=== PATIENT | female | born 1955 | race Two or more races ===

== ENCOUNTER 2020-08-29 14:43 | Outpatient (REF) | payer OTHER, SELFPAY | END 2020-08-29 14:44 | disposition home or self-care (01) | LOC: HO.LAB 14:43 | PROVIDERS: PCP Internal Medicine; Visit Provider Internal Medicine | DX: Z20.828 Contact with and (suspected) exposure to other viral communicable diseases (principal) | CPT/HCPCS: 87635 ==

== ENCOUNTER → 2020-09-11 09:21 | Outpatient (BNVA) | payer OTHER, SELFPAY | PROVIDERS: PCP Internal Medicine; Visit Provider Nurse Practitioner | DX: K31.84 Gastroparesis (principal); K21.00 Gastro-esophageal reflux disease with esophagitis, without bleeding; K22.70 Barrett's esophagus without dysplasia; R10.33 Periumbilical pain; Z79.899 Other long term (current) drug therapy | CPT/HCPCS: 99212 ==

== ENCOUNTER → 2020-10-22 09:54 | Outpatient (BNVA) | payer OTHER, SELFPAY | PROVIDERS: PCP Internal Medicine; Referring Provider Internal Medicine; Visit Provider Nurse Practitioner | DX: Z76.89 Persons encountering health services in other specified circumstances (principal) ==

== ENCOUNTER → 2020-10-29 13:45 | Outpatient (BNVA) | payer OTHER, SELFPAY | PROVIDERS: PCP Internal Medicine; Visit Provider Internal Medicine | DX: I25.10 Atherosclerotic heart disease of native coronary artery without angina pectoris (principal); E11.8 Type 2 diabetes mellitus with unspecified complications; I10 Essential (primary) hypertension; E78.5 Hyperlipidemia, unspecified | CPT/HCPCS: 99212 ==

== ENCOUNTER 2020-11-29 11:08 | Outpatient (REF) | payer MEDICARE, MEDICAID, SELFPAY ==
--- NOTE | 2020-11-29 | MM_ITS ---
EXAMINATION: MM SCREENING DIGITAL BREAST TOMOSYNTHESIS, BILATERAL CLINICAL INFORMATION: Screening. Asymptomatic. The lifetime risk of breast cancer based on the Tyrer-Cuzick Model is 5%. COMPARISON: Mammography: 11/25/2019, 11/19/2018, 05/11/2018 TECHNIQUE: Digital breast tomosynthesis is performed in both the craniocaudal and mediolateral oblique views along with computer-aided detection (CAD). Synthesized 2D images are generated from the tomosynthesis. FINDINGS: There are scattered areas of fibroglandular density (ACR BI-RADS breast composition Category b). There are no significant masses, abnormal calcifications, or other abnormalities. Parenchymal pattern is similar to prior studies. MM/MM tomosynthesis screening BI IMPRESSION: No significant changes from prior exams. ASSESSMENT: BI-RADS 1: Negative RECOMMENDATION: Routine annual mammography screening. This patient's information was entered into a reminder system with a target due date for their next mammogram.
== END 2020-11-29 11:09 | disposition home or self-care (01) ==
LOC: HO.MAMMO 11:08
PROVIDERS: PCP Internal Medicine; Visit Provider Internal Medicine
DX: Z12.31 Encounter for screening mammogram for malignant neoplasm of breast (principal)
CPT/HCPCS: 77063; 77067

== ENCOUNTER → 2020-12-10 10:35 | Outpatient (BNVA) | payer SELFPAY | PROVIDERS: PCP Internal Medicine; Visit Provider Nurse Practitioner ==

== ENCOUNTER 2020-12-20 16:53 | Outpatient (REF) | payer MEDICARE, SELFPAY | END 2020-12-20 16:54 | disposition home or self-care (01) | LOC: HO.LAB 16:53 | PROVIDERS: Visit Provider Internal Medicine | DX: Z20.822 Contact with and (suspected) exposure to COVID-19 (principal) | CPT/HCPCS: 36415; C9803; U0003; U0005 ==

== ENCOUNTER → 2021-02-01 10:55 | Outpatient (BNVA) | payer MEDICARE, SELFPAY | PROVIDERS: PCP Internal Medicine; Visit Provider Hospitalist | DX: J45.40 Moderate persistent asthma, uncomplicated (principal); J30.9 Allergic rhinitis, unspecified; K21.00 Gastro-esophageal reflux disease with esophagitis, without bleeding; Z79.899 Other long term (current) drug therapy | CPT/HCPCS: Q3014 ==

== ENCOUNTER → 2021-03-11 13:05 | Outpatient (BNVA) | payer MEDICARE, SELFPAY | PROVIDERS: PCP Internal Medicine; Visit Provider Nurse Practitioner | DX: Z13.89 Encounter for screening for other disorder (principal) | CPT/HCPCS: Q3014 ==

== ENCOUNTER → 2021-04-30 12:43 | Outpatient (BNVA) | payer MEDICARE, SELFPAY | PROVIDERS: PCP Internal Medicine; Referring Provider Internal Medicine; Visit Provider Internal Medicine | DX: I25.10 Atherosclerotic heart disease of native coronary artery without angina pectoris (principal); E11.8 Type 2 diabetes mellitus with unspecified complications; E78.5 Hyperlipidemia, unspecified; I10 Essential (primary) hypertension | CPT/HCPCS: 93005; 99212 ==

== ENCOUNTER → 2021-05-02 07:53 | Outpatient (REF) | payer MEDICARE, SELFPAY ==
--- NOTE | ~2021-05-02 | NM_ITS ---
Myocardial perfusion study Indication: Angina pectoris to evaluate for myocardial ischemia Technique: The patient was brought in for a Lexiscan perfusion study on 05/02/2021. Patient performed low-level exercise and was injected 0.4 mg of Lexiscan intravenously. Within a minute of injection, 35 mCi of sestamibi was given intravenously. Images were obtained using the SPECT gamma camera interlaced with the gating device. Images were obtained in supine position. Resting perfusion study was performed on 05/03/2021. Patient was administered 35 mCi of sestamibi intravenously at rest. Images were then obtained in supine position. Images obtained with and without CT attenuation. Total DLP 135 mGy-cm. Images were processed with the software and compared side to side in short axis, horizontal long axis and vertical long axis views. Findings: The stress perfusion study showed nonattenuated images show small area of mildly reduced uptake in the apex of the LV myocardium. Attenuation corrected images also show mildly reduced uptake in the apex of the LV myocardium.. The gated study shows normal LV systolic function with calculated LVEF of 73%. LV cavity is normal in size. The gated study shows normal systolic wall thickening and contraction of segments. Resting study shows normal uptake of radiotracer in all segments of LV myocardium on attenuation as well as nonattenuated images.. Gating at rest reveals normal systolic wall motion with visually estimated ejection fraction at greater than 65 %. The findings are consistent with small area of mild intensity reversible defect of the apex suggestive of ischemia.. NM/NM monica perf SPECT rest & str Impression: 1. Myocardial perfusion imaging study shows mild intensity apical ischemia 2. Gated LVEF is greater than 65% 3. Transient ischemic dilatation not present EKG is nondiagnostic for ischemia
--- NOTE | 2021-05-02 07:55 | CA_ITS ---
Acquisition Time: 2021-05-02 08:16:04 Total Exercise Time: 00:02:00 Test Indications: CP, PREOP Medications: SEE CHART Protocol: LEXISCAN Max HR: 107 BPM 69% of Pred: 155 BPM Max BP: 130/090 mmHG Max Work Load: 1.0 METS Pharmacological stress test with Lexiscan, while sitting and kicking her legs, without anginal symptoms, without arrythmia, with normotensive response to injection, with nondiagnostic EKG for ischemia. Nuclear images pending. Test reviewed [facility] Dr Navarrete. Referred By: Dileep Freeman Overread By: SUN GREGORY
== END ==
LOC: HO.CARD 07:53
PROVIDERS: Visit Provider Internal Medicine
DX: I25.119 Atherosclerotic heart disease of native coronary artery with unspecified angina pectoris (principal)
CPT/HCPCS: 78452; 93017; A9500; J0280; J2785

== ENCOUNTER → 2021-05-08 13:34 | Outpatient (BNVA) | payer MEDICARE, SELFPAY | PROVIDERS: PCP Internal Medicine; Referring Provider Internal Medicine; Visit Provider Internal Medicine | DX: I25.10 Atherosclerotic heart disease of native coronary artery without angina pectoris (principal); I10 Essential (primary) hypertension; E78.5 Hyperlipidemia, unspecified; E11.8 Type 2 diabetes mellitus with unspecified complications | CPT/HCPCS: 99212 ==

== ENCOUNTER → 2021-07-16 13:22 | Outpatient (BNVA) | payer MEDICARE, MEDICAID, SELFPAY | PROVIDERS: Visit Provider Nurse Practitioner | DX: Z13.89 Encounter for screening for other disorder (principal) | CPT/HCPCS: Q3014 ==

== ENCOUNTER 2021-11-04 21:59 | Emergency (ER) | payer MEDICARE, MEDICAID, SELFPAY ==
--- NOTE | ~2021-11-04 | XR_ITS ---
EXAMINATION: XR CHEST CLINICAL INFORMATION: Shortness of breath COMPARISON: 01/04/2019 TECHNIQUE: 2 views of the chest were obtained. FINDINGS: No significant abnormality is noted involving the heart, lungs, mediastinum, bony thorax or soft tissues. XR/XR chest 2V IMPRESSION: Unremarkable examination.
[2021-11-04 22:58] VITALS: BP 184/96; PULSE 108; RESP 20; TEMP 36.3; O2SAT 96; BMI 37.0
[2021-11-05 00:13] LABS: MANUAL DIFF FLAG NO
[2021-11-05 00:14] LABS: Basophils Percent Auto 0.3 % (0-2); Eosinophils Absolute Auto 0.2 X10*3/uL (0.0-0.4); Eosinophils Percent Auto 1.6 % (0-4); Hematocrit 38.6 % (37.0-47.0); Hemoglobin 12.1 g/dl (12.0-16.0); Imm Gran Abs Auto 0.04 X10*3/uL (0.00-0.03); Imm Gran Pct Auto 0.4 % (0.0-0.4); Lymphocytes Absolute Auto 1.3 X10*3/uL (1.2-4.9); Lymphocytes Percent Auto 12.5 % (20-40); Mean Corpuscular HGB Conc 31.3 g/dl (31.0-35.0); Mean Corpuscular Hemoglobin 26.7 pg (27.0-33.0); Mean Platelet Volume 9.2 fL (9.4-12.3); Monocytes Absolute Auto 0.6 X10*3/uL (0.1-1.2); Neutrophils Absolute Auto 8.2 x10*3/uL (2.0-8.3); Neutrophils Percent Auto 79.2 % (45-73); Platelet Count 225 X10*3/uL (160-400); Red Blood Count 4.54 X10*6/uL (4.20-5.50); Red Cell Distribution Width 14.3 % (11.0-16.0); White Blood Count 10.3 X10*3/uL (4.8-10.8)
[2021-11-05 00:29] LABS: Alanine Aminotransferase 50 U/L (0-31); Alkaline Phosphatase 117 U/L (39-117); Anion Gap 13 (12-20); Aspartate Amino Transferase 53 U/L (5-31); Bilirubin Total 0.4 mg/dL (0.0-1.0); Blood Urea Nitrogen 14 mg/dL (9-16); Calcium 9.3 mg/dL (8.4-10.2); Carbon Dioxide 25 mmol/L (22-29); Chloride 107 mmol/L (96-108); Creatinine Clr Calc Pharmacy 66.7; Estimated Glomerular Filt Rate 56; Glucose Random 195 mg/dL (60-115); Potassium 3.7 mmol/L (3.3-5.1); Sodium 141 mmol/L (135-145); Total Protein 7.7 g/dL (6.5-8.0)
[2021-11-05 00:55] LABS: Influenza A PCR NEGATIVE (Negative); Influenza B PCR NEGATIVE (Negative); Resp Syncy Virus RNA Qual PCR NEGATIVE (Negative)
[2021-11-05 00:56] LABS: SARS COV2 PCR INHOUSE POSITIVE (Negative)
== END 2021-11-05 03:09 | disposition left against medical advice (07) ==
PROVIDERS: Physician Assistant; Emergency Provider Emergency Medicine
DX: R05.9 Cough, unspecified (principal); Z20.822 Contact with and (suspected) exposure to COVID-19
CPT/HCPCS: 0241U; 36415; 71046; 80053; 85025; 99282; 99283

== ENCOUNTER 2022-01-09 | Outpatient (REF) | payer MEDICARE, MEDICAID, SELFPAY | END 2022-01-09 00:01 | disposition home or self-care (01) | LOC: HO.MAMMO | PROVIDERS: PCP Internal Medicine; Visit Provider Internal Medicine | DX: I25.10 Atherosclerotic heart disease of native coronary artery without angina pectoris (principal); I10 Essential (primary) hypertension; E78.5 Hyperlipidemia, unspecified | CPT/HCPCS: 93005; Q3014 ==

== ENCOUNTER 2022-01-30 07:43 | Outpatient (REF) | payer MEDICARE, MEDICAID, SELFPAY ==
--- NOTE | 2022-01-30 17:34 | PFT_ITS ---
FLOWS: FEV1 74% of predicted at 1.85 L. FVC 67% of predicted at 2.15 L. FEV1 to FVC ratio of 0.86. No bronchodilator response. LUNG VOLUMES: Total lung capacity 66% of predicted at 3.47 L. Residual volume 59% of predicted at 1.29 L. Slow vital capacity 71% of predicted at 2.19 L. Expiratory reserve volume 13% of predicted at 0.11 L. Diffusion capacity is mildly decreased, diffusion capacity corrects to normal after adjustment for alveolar ventilation. IMPRESSION: Moderate restrictive ventilatory defect with no bronchodilator response. Decreased expiratory reserve volume suggests extrathoracic restriction, likely secondary to abdominal obesity. Marcellus Brown MD AP/MODL / [id number]
== END 2022-01-30 07:44 | disposition home or self-care (01) ==
LOC: HO.RESP 07:43
PROVIDERS: PCP Internal Medicine; Visit Provider Hospitalist
DX: J45.40 Moderate persistent asthma, uncomplicated (principal); J30.9 Allergic rhinitis, unspecified; J98.4 Other disorders of lung; K21.00 Gastro-esophageal reflux disease with esophagitis, without bleeding; G47.33 Obstructive sleep apnea (adult) (pediatric); Z99.89 Dependence on other enabling machines and devices
CPT/HCPCS: 94060; 94727; 94729; 99212

== ENCOUNTER 2022-02-11 11:51 | Outpatient (REF) | payer MEDICARE, MEDICAID, SELFPAY ==
[2022-02-11 12:21] LABS: MANUAL DIFF FLAG NO
[2022-02-11 12:36] LABS: Basophils Percent Auto 0.3 % (0-2); Eosinophils Absolute Auto 0.2 X10*3/uL (0.0-0.4); Eosinophils Percent Auto 1.8 % (0-4); Imm Gran Abs Auto 0.04 X10*3/uL (0.00-0.03); Imm Gran Pct Auto 0.3 % (0.0-0.4); Lymphocytes Absolute Auto 2.8 X10*3/uL (1.2-4.9); Lymphocytes Percent Auto 23.1 % (20-40); Mean Corpuscular HGB Conc 30.8 g/dl (31.0-35.0); Mean Corpuscular Hemoglobin 25.8 pg (27.0-33.0); Mean Corpuscular Volume 83.9 fL (80.0-98.0); Mean Platelet Volume 9.8 fL (9.4-12.3); Monocytes Absolute Auto 0.6 X10*3/uL (0.1-1.2); Monocytes Percent Auto 4.7 % (2-11); Neutrophils Absolute Auto 8.4 x10*3/uL (2.0-8.3); Neutrophils Percent Auto 69.8 % (45-73); Platelet Count 212 X10*3/uL (160-400); Red Blood Count 4.65 X10*6/uL (4.20-5.50); Red Cell Distribution Width 14.7 % (11.0-16.0)
[2022-02-11 13:22] LABS: Anion Gap 11 (12-20); Blood Urea Nitrogen 9 mg/dL (9-16); Calcium 9.5 mg/dL (8.4-10.2); Carbon Dioxide 26 mmol/L (22-29); Chloride 109 mmol/L (96-108); Estimated Glomerular Filt Rate > 60; Glucose Random 181 mg/dL (60-115); Potassium 3.8 mmol/L (3.3-5.1); Sodium 142 mmol/L (135-145)
== END 2022-02-11 11:52 | disposition home or self-care (01) ==
LOC: HO.LAB 11:51
PROVIDERS: PCP Internal Medicine; Visit Provider Internal Medicine
DX: E11.9 Type 2 diabetes mellitus without complications (principal); I10 Essential (primary) hypertension
CPT/HCPCS: 36415; 80048; 85025

== ENCOUNTER 2022-02-12 12:13 | Outpatient (REF) | payer MEDICARE, MEDICAID, SELFPAY ==
--- NOTE | ~2022-02-12 | CT_ITS ---
EXAMINATION: CT ABDOMEN AND PELVIS WITH CONTRAST CLINICAL INFORMATION: Calculus of gallbladder COMPARISON: Ultrasound from 02/14/[address] 10/16/2008 TECHNIQUE: Multidetector volumetric images were obtained from the superior aspect of the liver through the pubic symphysis following administration 85 mL of Omnipaque 350 intravenous contrast. Sagittal and coronal reformatted images were obtained on the technologist's workstation. Oral contrast: No This CT examination was performed using dose optimization techniques as appropriate, variously including the following: *Automated exposure control *Adjustment of mA and/or kV according to patient size (this includes techniques or standardized protocols for targeted exams where dose is matched to indication/reason for exam; i.e. extremities or head) *Use of iterative reconstruction technique DLP: 652 mGy-cm FINDINGS: LUNG BASES: Right middle lobe 0.7 cm nodule noted. This is seen on series 6 image 17. Not definitively seen on prior. LIVER, GALLBLADDER, AND BILIARY TREE: The liver is normal in size and shape with decreased attenuation. No focal hepatic lesion or biliary ductal dilatation is present. The gallbladder is decompressed with no evidence of radiopaque gallstones, gallbladder wall thickening, or obvious pericholecystic inflammatory changes. PANCREAS: Unremarkable. SPLEEN: Unremarkable. ADRENAL GLANDS: Unremarkable. KIDNEYS AND URETERS: The kidneys are normal in size, shape, and attenuation. No hydronephrosis or hydroureter. Anterior exophytic right lower pole 8.5 cm simple renal cyst. No follow-up imaging recommended. Probable additional simple cyst at the lower pole of the left kidney. There is a left lower pole 0.3 cm calculus which is 13 cm from the posterior axillary line. BLADDER: Unremarkable. GASTROINTESTINAL TRACT: The stomach is unremarkable. Normal caliber small bowel. No obstruction. Normal appendix. No colonic wall thickening or inflammatory change. No free air or free fluid. ABDOMINAL WALL: No significant hernia is appreciated. LYMPH NODES: Normal. VASCULAR: Normal caliber aorta with mild upper scrota calcification. PELVIC VISCERA: The uterus and adnexa are unremarkable. OSSEOUS STRUCTURES: No acute or suspicious osseous abnormality. Osseous fusion at L5-S1. Degenerative changes throughout the spine. Mild degenerative change of the hips. CT/CT abdomen pelvis w con IMPRESSION: Contracted gallbladder with no stones identified. No inflammation of the gallbladder. Nonobstructing left lower pole renal calculus. 0.7 cm right middle lobe pulmonary nodule. Suggest nonemergent dedicated chest CT evaluation. Fleischner guidelines were followed.
[2022-02-12] MEDS: Barium Sulfate Oral (Mocha) 450 ML ORAL.SUSP 900 ML PO (15:03)
[2022-02-12] MEDS: iohexoL 350 MG/ML 100 ML INFUS..BTL IV (15:03)
== END 2022-02-12 12:14 | disposition home or self-care (01) ==
LOC: HO.CT 12:13
PROVIDERS: PCP Internal Medicine; Visit Provider Emergency Medicine
DX: R10.31 Right lower quadrant pain (principal)
CPT/HCPCS: 74177; Q9967

== ENCOUNTER 2022-02-27 13:54 | Outpatient (REF) | payer MEDICARE, MEDICAID, SELFPAY ==
--- NOTE | ~2022-02-27 | XR_ITS ---
EXAMINATION: XR HIP, RIGHT CLINICAL INFORMATION: Pain in the right hip. COMPARISON: CT dated 02/12/2022. TECHNIQUE: AP and frog-leg lateral views of the right hip. FINDINGS: Mild osteoarthritis in the right hip is characterized primarily by acetabular osteophytes. Joint space is normal. No fracture or malalignment. Bone mineralization is normal. Osteoarthritis in the right SI joint is partially imaged. Barium-coated stool is seen in the rectum. 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 No acute osseous findings.
== END 2022-02-27 13:55 | disposition home or self-care (01) ==
LOC: HO.XRAY 13:54
PROVIDERS: PCP Internal Medicine; Visit Provider Registered Nurse
DX: M25.551 Pain in right hip (principal)
CPT/HCPCS: 73502

== ENCOUNTER 2022-02-28 08:46 | Outpatient (REF) | payer MEDICARE, MEDICAID, SELFPAY ==
--- NOTE | ~2022-02-28 | CT_ITS ---
EXAMINATION: CT CHEST WITH CONTRAST CLINICAL INFORMATION: Pulmonary nodule evaluation. COMPARISON: Abdomen CT from 02/12/2022. TECHNIQUE: Multidetector volumetric CT imaging of the chest was obtained after the administration of 65 mL of Omnipaque 350 intravenous contrast without immediate adverse reactions. Axial MIP volume rendering provided. Sagittal and coronal reformatted images were obtained. This CT examination was performed using dose optimization techniques as appropriate, variously including the following: *Automated exposure control *Adjustment of mA and/or kV according to patient size (this includes techniques or standardized protocols for targeted exams where dose is matched to indication/reason for exam; i.e. extremities or head) *Use of iterative reconstruction technique DLP: 163 mGy-cm FINDINGS: LOCALIZER IMAGES: Large body habitus. LUNGS AND PLEURA: Trachea and central airways are widely patent and normal in caliber. A solid, noncalcified subpleural nodule of 0.5 cm average diameter is present in the lateral aspect of the right middle lobe. A solid noncalcified nodule of 0.6 cm average diameter is present in the medial segment of the right middle lobe. 0.4 cm and 0.3 cm noncalcified nodules are present in the lateral right and left lower lobe, respectively. No pulmonary mass or pleural effusion. CARDIOVASCULAR: The heart size is normal. Moderate three-vessel coronary artery atherosclerotic calcification. No pericardial effusion. Pulmonary arteries are normal in size. Mild atherosclerosis of the thoracic aorta without aneurysm. MEDIASTINUM AND LOWER NECK: No mediastinal mass. The esophagus is unremarkable. Thyroid gland is grossly normal. LYMPHATICS: No pathologic sized lymph nodes. UPPER ABDOMEN: There is hepatomegaly and diffuse hepatic steatosis. Mildly enlarged spleen measures up to 13.4 cm. No focal splenic lesion. Adrenal glands are unremarkable. SKELETAL AND CHEST WALL: No chest wall mass. Multilevel osteophyte and/or enthesophyte formation of the thoracic spine. No suspicious osseous lesions. CT/CT chest w con IMPRESSION: * There are few solid noncalcified bilateral pulmonary nodules. Based on Fleischner Society guidelines for incidentally detected multiple pulmonary nodules, chest CT follow-up is advised in the next 3-6 months (preferentially 6 months). No pulmonary mass or lymphadenopathy. * Moderate atherosclerotic calcification of coronary arteries. * Large body habitus with hepatic steatosis and mild hepatic splenomegaly.
[2022-02-28] MEDS: iohexoL 350 MG/ML 75 ML INFUS..BTL 65 ML IV (11:02)
== END 2022-02-28 08:47 | disposition home or self-care (01) ==
LOC: HO.CT 08:46
PROVIDERS: Visit Provider Emergency Medicine
DX: R91.1 Solitary pulmonary nodule (principal)
CPT/HCPCS: 71260; Q9967

== ENCOUNTER 2022-03-14 10:57 | Outpatient (REF) | payer MEDICARE, MEDICAID, SELFPAY ==
--- NOTE | ~2022-03-14 | MM_ITS ---
EXAMINATION: MM SCREENING DIGITAL BREAST TOMOSYNTHESIS, BILATERAL CLINICAL INFORMATION: Screening. Asymptomatic. The lifetime risk of breast cancer based on the Tyrer-Cuzick Model is 7%. COMPARISON: Mammography: 11/29/2020, 11/25/2019, 11/19/2018, 05/11/2018 TECHNIQUE: Digital breast tomosynthesis is performed in both the craniocaudal and mediolateral oblique views along with computer-aided detection (CAD). Synthesized 2D images are generated from the tomosynthesis. FINDINGS: There are scattered areas of fibroglandular density (ACR BI-RADS breast composition Category b). There are no significant masses, abnormal calcifications, or other abnormalities. There is no developing density or architectural abnormality. Parenchymal pattern is similar to prior studies. Low right axillary tail node stable. Skin contours are smooth. No significant changes. MM/MM tomosynthesis screening BI IMPRESSION: No mammographic evidence of malignancy. ASSESSMENT: BI-RADS 2: Benign RECOMMENDATION: Routine annual mammography screening. This patient's information was entered into a reminder system with a target due date for their next mammogram.
== END 2022-03-14 10:58 | disposition home or self-care (01) ==
LOC: HO.MAMMO 10:57
PROVIDERS: PCP Internal Medicine; Visit Provider Internal Medicine
DX: Z12.31 Encounter for screening mammogram for malignant neoplasm of breast (principal)
CPT/HCPCS: 77063; 77067

== ENCOUNTER 2022-04-24 10:43 | Outpatient (REF) | payer MEDICARE, MEDICAID, SELFPAY ==
--- NOTE | ~2022-04-24 | CT_ITS ---
EXAMINATION: CT HEAD WITHOUT CONTRAST CLINICAL INFORMATION: Fall. Headache. COMPARISON: Previous head CT most recent from 2008 TECHNIQUE: Contiguous axial imaging was performed from the skull base to vertex without intravenous administration of contrast. This CT examination was performed using dose optimization techniques as appropriate, variously including the following: *Automated exposure control *Adjustment of mA and/or kV according to patient size (this includes techniques or standardized protocols for targeted exams where dose is matched to indication/reason for exam; i.e. extremities or head) *Use of iterative reconstruction technique DLP: 803 mGy-cm FINDINGS: There is no evidence of acute intracranial hemorrhage or territorial infarction. No abnormal mass effect or midline shift is seen. Roper to white matter differentiation is well preserved. No extra-axial fluid collections are identified. The ventricles are normal in size. There is no abnormal attenuation within the brain parenchyma. No skull fracture is seen. No suspicious bone lesion is seen. Probable osteoma arising from the table of the right frontal bone from above the vertex. Unchanged from 2008. The mastoid air cells and visualized portions of the paranasal sinuses are well aerated. CT/CT head/brain wo con IMPRESSION: No acute findings.
== END 2022-04-24 10:44 | disposition home or self-care (01) ==
LOC: HO.CT 10:43
PROVIDERS: Visit Provider Nurse Practitioner
DX: R51.9 Headache, unspecified (principal); W19.XXXA Unspecified fall, initial encounter
CPT/HCPCS: 70450

== ENCOUNTER → 2022-05-05 14:43 | Outpatient (BNVA) | payer MEDICARE, MEDICAID, SELFPAY | PROVIDERS: PCP Internal Medicine; Referring Provider Internal Medicine; Visit Provider Internal Medicine | DX: I25.10 Atherosclerotic heart disease of native coronary artery without angina pectoris (principal); E11.8 Type 2 diabetes mellitus with unspecified complications; I10 Essential (primary) hypertension; E78.5 Hyperlipidemia, unspecified | CPT/HCPCS: 99212 ==

== ENCOUNTER 2022-05-09 06:39 | Emergency (ER) | payer MEDICARE, MEDICAID, SELFPAY ==
--- NOTE | ~2022-05-09 | CT_ITS ---
EXAMINATION: CT CHEST, ABDOMEN AND PELVIS WITHOUT IV CONTRAST CLINICAL INFORMATION: Flank pain. Fall. COMPARISON: Previous chest CT and abdominal and pelvic CT February 2022 TECHNIQUE: Axial images through the chest, abdomen and pelvis without IV and following oral contrast. Sagittal and coronal reconstructions on the technologist workstation were performed. Patient dose 8 8 7 mg/cm. This CT examination was performed using dose optimization techniques as appropriate, variously including the following: *Automated exposure control *Adjustment of mA and/or kV according to patient size (this includes techniques or standardized protocols for targeted exams where dose is matched to indication/reason for exam; i.e. extremities or head) *Use of iterative reconstruction technique FINDINGS: Chest: The pulmonary nodules are stable. Largest pulmonary nodule is a peripheral or subpleural 5 mm right middle lobe nodule axial image 30 series 28. There is a 1 cm cyst in the right lower lobe. The lungs are otherwise clear. There is coronary artery and aortic valve calcification. The mediastinum is otherwise normal. The heart size is normal. There is no pericardial effusion. The thoracic aorta is tortuous but normal in caliber. No fluid collection is seen. No enlarged hilar or mediastinal lymph nodes. No pleural effusion, pleural thickening or pneumothorax. No chest wall mass. Small bilateral axillary lymph nodes. No enlarged lymph nodes. Abdomen and pelvis: The liver and gallbladder are normal. The spleen is normal. There is fatty infiltration of the pancreas. The pancreas is otherwise normal. The adrenal glands are normal. There are small bilateral renal stones. There is a 7 x 8 cm cyst in the lower pole of the right kidney that is stable. No imaging follow-up needed. No hydronephrosis, ureteral dilatation or ureteral stone. The bladder is normal. The uterus and adnexa are normal. Small and large bowel is unremarkable. The appendix is is not seen. No ascites or free air. No hernia. Atherosclerotic disease. No aneurysm. Degenerative changes of the spine. Postsurgical changes and partial ankylosis at the L5-S1 level. This appears unchanged. Old right lateral third rib fracture that appears unchanged. CT/CT abdomen pelvis wo con IMPRESSION: No acute findings in the chest, abdomen or pelvis.
--- NOTE | ~2022-05-09 | CT_ITS ---
EXAMINATION: CT CERVICAL SPINE WITHOUT CONTRAST CLINICAL INFORMATION: Fall. Pain. COMPARISON: CT scan of the cervical spine 11/29/2015. TECHNIQUE: Fan Balancer images were obtained. CT imaging of the cervical spine was performed without contrast. Data was reformatted into multiplanar images at the acquisition workstation. This CT examination was performed using dose optimization techniques as appropriate, variously including the following: *Automated exposure control *Adjustment of mA and/or kV according to patient size (this includes techniques or standardized protocols for targeted exams where dose is matched to indication/reason for exam; i.e. extremities or head) *Use of iterative reconstruction technique DLP: 555 mGy-cm FINDINGS: Alignment is normal. Vertebral heights are preserved. No acute fracture. No abnormal prevertebral soft tissue swelling. There is degenerative arthrosis of the atlantodental joint. Grossly no evidence of canal compromise. No bony neuroforaminal encroachment. Soft tissues of the neck including the thyroid gland are normal. Visualized lung apices are clear. CT/CT cervical spine wo con IMPRESSION: Unremarkable CT scan of the cervical spine. Fleischner guidelines were followed.
--- NOTE | ~2022-05-09 | CT_ITS ---
EXAMINATION: CT HEAD WITHOUT CONTRAST CLINICAL INFORMATION: Fall. Pain COMPARISON: None TECHNIQUE: Contiguous axial imaging was performed from the skull base to vertex without intravenous administration of contrast. This CT examination was performed using dose optimization techniques as appropriate, variously including the following: *Automated exposure control *Adjustment of mA and/or kV according to patient size (this includes techniques or standardized protocols for targeted exams where dose is matched to indication/reason for exam; i.e. extremities or head) *Use of iterative reconstruction technique DLP: 663 mGy-cm FINDINGS: There is no evidence of acute intracranial hemorrhage or territorial infarction. No abnormal mass effect or midline shift is seen. Roper to white matter differentiation is well preserved. No extra-axial fluid collections are identified. No calvarial fracture. 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 It appears chronic. CT/CT head/brain wo con IMPRESSION: No acute intracranial pathology.
[2022-05-09 06:53] VITALS: BP 136/77; PULSE 18; RESP 18; TEMP 36.4; O2SAT 96; BMI 35.5
[2022-05-09 08:57] LABS: COVID-19 Test Negative (Negative); IDNOW Serial# 16C4AD1C
--- NOTE | 2022-05-09 09:06 | ED_ITS ---
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 Patient states that yesterday, she was trying to get out of a beach chair when she fell and now her right flank hurts. Patient denies hitting her head with the incident. Patient denies any loss of consciousness from the incident. Patient denies any dizziness, lightheadedness, abdominal pain, nausea, vomiting, fever, chills, blurry vision, double vision, loss of vision, chest pain, difficulty breathing, shortness of breath, back pain, night sweats, pain with urination, increased urinary frequency, increased urinary urgency, blood in her urine or stool, syncope or a near syncopal episode, bowel incontinence, bladder incontinence, bowel retention, bladder retention, or any other complaints at this time. Onset (ago): day(s) (1) Radiation: non-radiation Severity: mild Severity scale (1-10): 2 Quality: dull Pain Consistency: constant Relieving factors: none Exacerbating factors: other (deep breaths) Associated symptoms: denies other symptoms Treatments prior to arrival: none Related Data Home Medications Medication Instructions Recorded Confirmed hydrocortisone 2.5 % topical cream 1 applic MT BID-QID PRN 09/10/20 05/05/22 with perineal applicator (Anusol-HC) amitriptyline 100 mg tablet 200 mg PO BEDTIME 10/29/20 05/05/22 aspirin 81 mg tablet,delayed 81 mg PO DAILY 10/29/20 05/05/22 release smhbsnkrga-wihdfsufbmhey-okxxsjwa tab PO 10/29/20 05/05/22 50 mg-325 mg-40 mg tablet cholecalciferol (vitamin D3) 50 50 mcg PO DAILY 10/29/20 05/05/22 mcg (2,000 unit) capsule clonazepam 0.5 mg tablet mg PO 10/29/20 05/05/22 cyanocobalamin (vitamin B-12) 1,000 mcg PO DAILY 10/29/20 05/05/22 1,000 mcg tablet metformin 500 mg tablet 500 mg PO DAILY 10/29/20 05/05/22 mirtazapine 45 mg tablet 45 mg PO BEDTIME 10/29/20 05/05/22 trazodone 100 mg tablet 100 mg PO BEDTIME 10/29/20 05/05/22 topiramate 100 mg tablet 100 mg PO BID 07/16/21 05/05/22 dulaglutide 0.75 mg/0.5 mL mg subcut QWEEK 01/30/22 05/05/22 subcutaneous pen injector (Trulicity) epinephrine 0.3 mg/0.3 mL IM DIRECTED anaphylaxis 01/30/22 05/05/22 injection, auto-injector fluticasone propionate 50 spray intranasal 01/30/22 05/05/22 mcg/actuation nasal spray,suspension celecoxib 200 mg capsule 200 mg PO DAILY 05/05/22 05/05/22 cetirizine 10 mg tablet 10 mg PO BEDTIME 05/05/22 05/05/22 naproxen 500 mg tablet 500 mg PO Q12H PRN 05/05/22 05/05/22 pregabalin 200 mg capsule 200 mg PO BID 05/05/22 05/05/22 Previous Rx's Medication Instructions Recorded amlodipine 10 mg tablet 10 mg PO DAILY 90 days #90 tabs 09/17/20 ezetimibe 10 mg tablet (Zetia) 10 mg PO DAILY 90 days #90 tabs 09/26/20 umeclidinium 62.5 mcg/actuation 1 inh PO DAILY 30 days #30 caps 02/01/21 blister powder for inhalation (Incruse Ellipta) atorvastatin 80 mg tablet 80 mg PO DAILY #90 tabs 04/01/21 nitroglycerin 0.4 mg sublingual 0.4 mg sublingual Q5M PRN chest 05/08/21 tablet pain #30 tabs albuterol sulfate 2.5 mg (3 mL) inhalation Q4H PRN 01/03/22 shortness of breath or wheezing 30 days #180 mL albuterol sulfate 90 mcg/actuation 2 puff inhalation QID PRN 01/03/22 aerosol inhaler (Ventolin HFA) shortness of breath or wheezing 30 days #18 grams fluticasone 250 mcg-salmeterol 50 1 inh inhalation Q12H 30 days #60 01/03/22 mcg/dose blistr powdr for ea inhalation (Advair Diskus) metoprolol succinate 25 mg 25 mg PO DAILY #90 tabs 01/03/22 tablet,extended release 24 hr (Toprol XL) metoclopramide HCl 5 mg tablet 5 mg PO .TID AC 30 days #90 tabs 01/07/22 (Reglan) omeprazole 40 mg capsule,delayed 40 mg PO BID 30 days #60 caps 01/07/22 release sennosides 8.6 mg capsule (senna) 17.2 mg PO BEDTIME constipation 30 01/07/22 days #60 caps sucralfate 1 gram tablet 2 g PO DAILY 90 days #180 tabs 01/07/22 Allergies Allergy/AdvReac Type Severity Reaction Status Date / Time bee pollen [BEE STINGS] Allergy Unknown ANAPHYLAXIS Verified 05/05/22 14:44 morphine [MORPHINE] Allergy Unknown ITCHING Verified 05/05/22 14:44 Review of Systems Constitutional: Constitutional: Reports no additional constitutional complaints, Denies chills, Denies fever(s) and Denies night sweats Eyes: Eyes: Reports no additional eye complaints, Denies blurry vision, Denies change in vision, Denies diplopia, Denies eye discharge, Denies loss of vision and Denies eye pain ENT: Denies dizziness Cardiovascular: Cardiovascular: Reports no additional cardiovascular complaints, Denies chest pain, Denies lightheadedness, Denies Loss of Con sciousness and Denies dyspnea Respiratory: Respiratory: Reports no additional respiratory complaints and Denies dyspnea Gastrointestinal: Gastrointestinal: Reports no additional gastrointestinal complaints, Denies abdominal pain, Denies melena, Denies hematochezia, Denies change in bowel habits and Denies change in stool character Genitourinary: Genitourinary: Denies hematuria, Denies urinary frequency, Denies dysuria, Denies urinary incontinence, Denies urinary hesitancy and Denies urinary urgency Musculoskeletal: Musculoskeletal: Reports no additional musculoskeletal complaints, Denies numbness and Denies tingling Comments: right sided flank pain Neurologic: Denies dizziness, Denies loss of vision, Denies numbness and Denies tingling Psychiatric: Psychiatric: Reports no additional psychiatric complaints Endocrine: Endocrine: Reports no additional endocrine complaints Hematologic/Lymphatic: Hematologic/Lymphatic: Reports no additional hematologic/lymphatic complaints Allergic/Immunologic: Allergic/Immunologic: Reports no additional allergic/immunologic complaints PMFSH Past Medical History Attestation statement: The following information was validated with the patient. Source: old records reviewed Medical History Asthma Atherosclerotic cardiovascular disease Chronic allergic rhinitis Chronic restrictive lung disease Essential hypertension EDWIN on CPAP Other and unspecified hyperlipidemia Type 2 diabetes mellitus with unspecified complications Surgical History History of esophagogastroduodenoscopy (EGD) Hx of colonoscopy Family History Family History Mother HTN (hypertension) Heart disease Asthma Maternal Aunt Breast cancer Maternal Aunt Tumor Maternal Aunt Cancer Social History Social History Household Members Other:: 4 household members Alcohol intake: former Patient Tobacco Use Status: Never used Tobacco Advance Directives: No Advance Directives Information Provided: No Physical Exam ED Vital Signs: Vital Signs - 24 hr 05/09/22 06:53 05/09/22 09:09 05/09/22 10:01 Temperature 97.5 F 98.2 F Pulse Rate 18 L 97 89 Respiratory Rate 18 16 17 Blood Pressure 136/77 138/74 129/77 Pulse Oximetry 96 94 92 Oxygen Delivery Method Room Air Room Air Room Air 05/09/22 10:11 Temperature 98.2 F Pulse Rate 86 Respiratory Rate 18 Blood Pressure 138/74 Pulse Oximetry 98 Oxygen Delivery Method Room Air BMI result Body Mass Index 35.5 Const General: cooperative, no acute distress, alert and awake Nutritional Appearance: well nourished Orientation/consciousness: patient oriented x3 Limitations: no limitations HENSD Head: Yes normal to inspection and Yes atraumatic Ears: hearing grossly normal bilaterally and external ears normal General nose exam: Normal external nose present, no nasal discharge noted and no epistaxis Face and sinus: Yes normal facial exam, No abrasion and No laceration Mouth: Normal oral and palatal mucosa present, no drooling and no muffled voice Eyes General: appearance normal, both eyes and all related structures Periorbital: periorbital findings normal Eyelids: Yes eyelids normal Conjunctivae: conjunctivae normal Pupils: Equal, round and reactive pupils present EOM: EOMs intact bilaterally Neck Neck: Yes normal visual inspection, Yes full ROM and Yes no lymphadenopathy Chest Chest palpation & inspection: normal inspection of the chest Resp Effort & Inspection: normal respiratory effort and able to speak in complete sentences Auscultation: clear to auscultation bilaterally Cardio Rate: regular rate Rhythm: regular rhythm GI Inspection: Yes normal to inspection Palpation (GI): Soft to palpation, not firm, nontender, no guarding and not rigid Neuro General: patient oriented x3 and moves all extremities Cranial nerves: Yes Equal, round and reactive pupils present Cognition (Neuro): normal cognition Motor exam (neuro): 5/5 motor strength present throughout Sensory Exam: Normal double simultaneous stimulation for sensation Coordination: gpbnew-rb-tntp test normal Extrem General: Yes normal to inspection, Yes full ROM and Yes capillary refill normal Psych Appearance: grossly normal Mental Status: mental status grossly normal Affect: normal affect Attitude: cooperative Thought process: Normal thought process present Thought content: Normal thought content present Insight: Good insight present (Psych) Medical Decision Making MDM Narrative Medical decision making narrative: Patient is a 66 year old female presenting to the emergency department today with right sided flank pain after a fall. Patient's physical exam was unremarkable. Patient's blood work was unremarkable. Patient's head, C-Spine, chest, and abd/pelvis CTs showed no acute process. I explained my physical exam findings as well as all test results to the patient. I answered all questions asked by the patient. I stressed the importance of the patient taking her medica tion as prescribed. I stressed the importance of the patient following up with her primary care provider. I stressed the importance of the patient returning to the emergency department immediately if her symptoms were to worsen or if she were to develop any dizziness, shortness of breath, difficulty breathing, chest pain, blurry vision, loss of vision, nausea, vomiting, abdominal pain, fever, chills, back pain, or any other complaints. Patient verbalized agreement and understanding with this treatment plan and discharge. Differential Diagnosis Differential Diagnosis: fall, right flank pain Medical Records Medical records reviewed: Yes I reviewed the patient's medical records. Lab Data Lab results reviewed: Yes I reviewed the patient's lab results. Result diagrams: 05/09/22 09:25 05/09/22 09:25 Labs: Lab Results 05/09/22 05/09/22 05/09/22 Range/Units 08:29 09:25 09:25 WBC 10.2 (4.8-10.8) X10*3/uL RBC 4.83 (4.20-5.50) X10*6/uL Hgb 12.3 (12.0-16.0) g/dl Hct 40.1 (37.0-47.0) % MCV 83.0 (80.0-98.0) fL MCH 25.5 L (27.0-33.0) pg MCHC 30.7 L (31.0-35.0) g/dl RDW 15.1 (11.0-16.0) % Plt Count 235 (160-400) X10*3/uL MPV 9.4 (9.4-12.3) fL Immature Gran % (Auto) 0.3 (0.0-0.4) % Neut % (Auto) 61.5 (45-73) % Lymph % (Auto) 30.5 (20-40) % [place] % (Auto) 5.1 (2-11) % Eos % (Auto) 2.1 (0-4) % Baso % (Auto) 0.5 (0-2) % Lymph # (Auto) 3.1 (1.2-4.9) X10*3/uL [place] # (Auto) 0.5 (0.1-1.2) X10*3/uL Eos # (Auto) 0.2 (0.0-0.4) X10*3/uL Baso # (Auto) 0.1 (0.0-0.2) X10*3/uL Abs Immat Gran (auto) 0.03 (0.00-0.03) X10*3/uL Absolute Neuts (auto) 6.3 (2.0-8.3) x10*3/uL Absolute Nucleated RBC 0.000 (0.0-0.012) X10*3/uL Nucleated RBC % (auto) 0.0 (0.0-0.2) /100WBC Sodium 143 (135-145) mmol/L Potassium 4.1 (3.3-5.1) mmol/L Chloride 108 (96-108) mmol/L Carbon Dioxide 27 (22-29) mmol/L Anion Gap 12 (12-20) BUN 11 (9-16) mg/dL Creatinine 0.77 (0.5-1.4) mg/dL Estim Creat Clear Calc 85.6 Estimated GFR > 60 Random Glucose 122 H (60-115) mg/dL Calcium 8.9 D (8.4-10.2) mg/dL Total Bilirubin 0.5 (0.0-1.0) mg/dL AST 34 H (5-31) U/L ALT 31 (0-31) U/L Alkaline Phosphatase 139 H (39-117) U/L Total Protein 7.6 (6.5-8.0) g/dL Albumin 4.0 (3.5-5.0) g/dL COVID-19 (ABDIEL) Negative (Negative) COVID-19 Clin Com See Note Imaging Data CT scan - head: Attestation: I personally reviewed and interpreted this imaging study as follows: My impression: No acute process. Radiologist's impression: EXAMINATION: CT HEAD WITHOUT CONTRAST CLINICAL INFORMATION: Fall. Pain? COMPARISON: None TECHNIQUE: Contiguous axial imaging was performed from the skull base to vertex without intravenous administration of contrast. This CT examination was performed using dose optimization techniques as appropriate, variously including the following: *Automated exposure control *Adjustment of mA and/or kV according to patient size (this includes techniques or standardized protocols for targeted exams where dose is matched to indication/reason for exam; i.e. extremities or head) *Use of iterative reconstruction technique DLP: 663 mGy-cm FINDINGS: There is no evidence of acute intracranial hemorrhage or territorial infarction. No abnormal mass effect or midline shift is seen. Roper to white matter differentiation is well preserved. No extra-axial fluid collections are identified. No calvarial fracture. 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 It appears chronic. CT/CT head/brain wo con ?IMPRESSION: No acute intracranial pathology. Dictated By: Shay Rincon MD Signed By: Electronically signed by Shay Rincon MD 05/09/[address] chest, abdomen/pelvis: Attestation: I personally reviewed and interpreted this imaging study as follows: My impression: No acute process. Radiologist's impression: EXAMINATION: CT CHEST, ABDOMEN AND PELVIS WITHOUT IV CONTRAST CLINICAL INFORMATION: Flank pain. Fall.? COMPARISON: Previous chest CT and abdominal and pelvic CT February 2022? TECHNIQUE: Axial images through the chest, abdomen and pelvis without IV and following oral contrast. Sagittal and coronal reconstructions on the technologist workstation were performed. Patient dose 8 8 7 mg/cm. This CT examination was performed using dose optimization techniques as appropriate, variously including the following: *Automated exposure control *Adjustment of mA and/or kV according to patient size (this includes techniques or standardized protocols for targeted exams where dose is matched to indication/reason for exam; i.e. extremities or head) *Use of iterative reconstruction technique? FINDINGS: Chest: The pulmonary nodules are stable. Largest pulmonary nodule is a peripheral or subpleural 5 mm right middle lobe nodule axial image 30 series 28. There is a 1 cm cyst in the right lower lobe. The lungs are otherwise clear. There is coronary artery and aortic valve calcification. The mediastinum is otherwise normal. The heart size is normal. There is no pericardial effusion. The thoracic aorta is tortuous but normal in caliber. No fluid collection is seen. No enlarged hilar or mediastinal lymph nodes. No pleural effusion, pleural thickening or pneumothorax. No chest wall mass. Small bilateral axillary lymph nodes. No enlarged lymph nodes. Abdomen and pelvis: The liver and gallbladder are normal. The spleen is normal. There is fatty infiltration of the pancreas. The pancreas is otherwise normal. The adrenal glands are normal. There are small bilateral renal stones. There is a 7 x 8 cm cyst in the lower pole of the right kidney that is stable. No imaging follow-up needed. No hydronephrosis, ureteral dilatation or ureteral stone. The bladder is normal. The uterus and adnexa are normal. Small and large bowel is unremarkable. The appendix is is not seen. No ascites or free air. No hernia. Atherosclerotic disease. No aneurysm. Degenerative changes of the spine. Postsurgical changes and partial ankylosis at the L5-S1 level. This appears unchanged.? Old right lateral third rib fracture that appears unchanged. CT/CT chest wo con IMPRESSION: No acute findings in the chest, abdomen or pelvis. Dictated By: Saumya Spears MD Signed By: Electronically signed by Saumya Spears MD 05/09/[address] C-Spine: Attestation: I personally reviewed and interpreted this imaging study as follows: My impression: No acute process. Radiologist's impression: EXAMINATION: CT CERVICAL SPINE WITHOUT CONTRAST CLINICAL INFORMATION: Fall. Pain.? COMPARISON: CT scan of the cervical spine 11/29/2015.? TECHNIQUE: Economics Instructor images were obtained. CT imaging of the cervical spine was performed without contrast. Data was reformatted into multiplanar images at the acquisition workstation.? This CT examination was performed using dose optimization techniques as appropriate, variously including the following: *Automated exposure control *Adjustment of mA and/or kV according to patient size (this includes techniques or standardized protocols for targeted exams where dose is matched to indication/reason for exam; i.e. extremities or head) *Use of iterative reconstruction technique DLP: 555 mGy-cm FINDINGS: Alignment is normal. Vertebral heights are preserved. No acute fracture. No abnormal prevertebral soft tissue swelling. There is degenerative arthrosis of the atlantodental joint. Grossly no evidence of canal compromise. No bony neuroforaminal encroachment. Soft tissues of the neck including the thyroid gland are normal. Visualized lung apices are clear. CT/CT cervical spine wo con IMPRESSION: Unremarkable CT scan of the cervical spine.? ? Fleischner guidelines were followed. Dictated By: Eric Palacios MD Signed By: Electronically signed by Eric Palacios MD 05/09/22 1000 Discharge Plan Discharge Clinical Impression: Fall Patient Disposition: Home, Self-Care Instructions: Fall Prevention (ED) Additional Instructions: Follow up with your primary care provider. Return to the emergency department immediately if your symptoms worsen or if you develop any dizziness, shortness of breath, difficulty breathing, chest pain, blurry vision, loss of vision, nausea, vomiting, abdominal pain, fever, chills, back pain, or any other complaints. Prescriptions: No Action amlodipine 10 mg tablet 10 mg PO DAILY 90 Days Qty: 90 1RF ezetimibe [Zetia] 10 mg tablet 10 mg PO DAILY 90 Days Qty: 90 1RF atorvastatin 80 mg tablet 80 mg PO DAILY Qty: 90 1RF albuterol sulfate 2.5 mg /3 mL (0.083 %) solution for nebulization 2.5 mg inhalation Q4H PRN (Reason: shortness of breath or wheezing) 30 Days Qty: 180 11RF albuterol sulfate [Ventolin HFA] 90 mcg/actuation HFA aerosol inhaler 2 puff inhalation QID PRN (Reason: shortness of breath or wheezing) 30 Days Qty: 18 11RF fluticasone propion-salmeterol [Advair Diskus] 250-50 mcg/dose blister with device 1 inh inhalation Q12H 30 Days Qty: 60 11RF metoprolol succinate [Toprol XL] 25 mg tablet extended release 24 hr 25 mg PO DAILY Qty: 90 4RF metoclopramide HCl [Reglan] 5 mg tablet 5 mg PO .TID AC 30 Days Qty: 90 4RF omeprazole 40 mg capsule,delayed release(DR/EC) 40 mg PO BID 30 Days Qty: 60 4RF senna 8.6 mg capsule 17.2 mg PO BEDTIME 30 Days Qty: 60 4RF sucralfate 1 gram tablet 2 g PO DAILY 90 Days Qty: 180 1RF aspirin 81 mg tablet,delayed release (DR/EC) 81 mg PO DAILY amitriptyline 100 mg tablet 200 mg PO BEDTIME cyanocobalamin (vitamin B-12) 1,000 mcg tablet 1,000 mcg PO DAILY [id number]-wigfqfyvtoepd-ulrd 50-325-40 mg tablet PO mirtazapine 45 mg tablet 45 mg PO BEDTIME cholecalciferol (vitamin D3) 50 mcg (2,000 unit) capsule 50 mcg PO DAILY metformin 500 mg tablet 500 mg PO DAILY trazodone 100 mg tablet 100 mg PO BEDTIME clonazepam 0.5 mg tablet PO topiramate 100 mg tablet 100 mg PO BID nitroglycerin 0.4 mg tablet, sublingual 0.4 mg sublingual Q5M PRN (Reason: chest pain) Qty: 30 5RF Rx Instructions: do not exceed 3 doses per episode Incruse Ellipta 62.5 mcg/actuation blister with device 1 inh PO DAILY 30 Days Qty: 30 11RF hydrocortisone [Anusol-HC] 2.5 % cream with perineal applicator 1 applic MT BID-QID PRN Trulicity 0.75 mg/0.5 mL pen injector subcut QWEEK fluticasone propionate 50 mcg/actuation spray,suspension intranasal epinephrine 0.3 mg/0.3 mL auto-injector IM DIRECTED pregabalin 200 mg capsule 200 mg PO BID celecoxib 200 mg capsule 200 mg PO DAILY cetirizine 10 mg tablet 10 mg PO BEDTIME naproxen 500 mg tablet 500 mg PO Q12H PRN Referrals: CarreraRenan Oscar MD [Primary Care Provider] - (Follow up with your primary care provider.) Interventions: ED Discharge Assessment Last Done: 05/09/22 10:55 Discharge Date/Time: 05/09/22 10:57 Print Language: Turkish
[2022-05-09 09:09] VITALS: BP 138/74; PULSE 97; RESP 16; TEMP 36.8; O2SAT 94
[2022-05-09 09:30] LABS: MANUAL DIFF FLAG NO
[2022-05-09 09:32] LABS: Basophils Absolute Auto 0.1 X10*3/uL (0.0-0.2); Basophils Percent Auto 0.5 % (0-2); Eosinophils Absolute Auto 0.2 X10*3/uL (0.0-0.4); Eosinophils Percent Auto 2.1 % (0-4); Hematocrit 40.1 % (37.0-47.0); Hemoglobin 12.3 g/dl (12.0-16.0); Imm Gran Abs Auto 0.03 X10*3/uL (0.00-0.03); Imm Gran Pct Auto 0.3 % (0.0-0.4); Lymphocytes Absolute Auto 3.1 X10*3/uL (1.2-4.9); Lymphocytes Percent Auto 30.5 % (20-40); Mean Corpuscular HGB Conc 30.7 g/dl (31.0-35.0); Mean Corpuscular Hemoglobin 25.5 pg (27.0-33.0); Mean Platelet Volume 9.4 fL (9.4-12.3); Monocytes Absolute Auto 0.5 X10*3/uL (0.1-1.2); Monocytes Percent Auto 5.1 % (2-11); Neutrophils Absolute Auto 6.3 x10*3/uL (2.0-8.3); Neutrophils Percent Auto 61.5 % (45-73); Platelet Count 235 X10*3/uL (160-400); Red Blood Count 4.83 X10*6/uL (4.20-5.50); Red Cell Distribution Width 15.1 % (11.0-16.0); White Blood Count 10.2 X10*3/uL (4.8-10.8)
[2022-05-09 09:58] LABS: Alanine Aminotransferase 31 U/L (0-31); Alkaline Phosphatase 139 U/L (39-117); Anion Gap 12 (12-20); Aspartate Amino Transferase 34 U/L (5-31); Bilirubin Total 0.5 mg/dL (0.0-1.0); Blood Urea Nitrogen 11 mg/dL (9-16); Calcium 8.9 mg/dL (8.4-10.2); Carbon Dioxide 27 mmol/L (22-29); Chloride 108 mmol/L (96-108); Creatinine Clr Calc Pharmacy 85.6; Estimated Glomerular Filt Rate > 60; Glucose Random 122 mg/dL (60-115); Potassium 4.1 mmol/L (3.3-5.1); Sodium 143 mmol/L (135-145); Total Protein 7.6 g/dL (6.5-8.0)
[2022-05-09 10:01] VITALS: BP 129/77; PULSE 89; RESP 17; O2SAT 92
[2022-05-09] MEDS: Ketorolac Tromethamine 15 MG/ML VIAL IM (10:09)
[2022-05-09 10:11] VITALS: BP 138/74; PULSE 86; RESP 18; TEMP 36.8; O2SAT 98
--- NOTE | 2022-05-09 10:14 | PC.NURSE ---
patient assessed with use of monitoring engineer .Tulio/Olimpia/ nathalie . pt wears glasses . heart rate regular at 85 . skin pink warm dry . lungs clear . abdomen soft non distended .positive bowel sounds . patient has limited mobility with walking boot since May 13 from injury . patient reports no LOC from fall . reports pain level 10/10 on right pain and side , no bruising or redness noted or edema to area . patient medicate . patient has been to XRAY patient aware of plan of care .
== END 2022-05-09 10:57 | disposition home or self-care (01) ==
PROVIDERS: Physician Assistant Medical; Emergency Provider Emergency Medicine Emergency Medical Services; PCP Internal Medicine
DX: S19.9XXA Unspecified injury of neck, initial encounter (principal); S09.90XA Unspecified injury of head, initial encounter; S29.9XXA Unspecified injury of thorax, initial encounter; M54.2 Cervicalgia; R07.89 Other chest pain; R10.9 Unspecified abdominal pain; R51.9 Headache, unspecified; W07.XXXA Fall from chair, initial encounter; Y93.9 Activity, unspecified; Y92.9 Unspecified place or not applicable; Y99.9 Unspecified external cause status; Z20.822 Contact with and (suspected) exposure to COVID-19; Z79.899 Other long term (current) drug therapy
CPT/HCPCS: 36415; 70450; 71250; 72125; 74176; 80053; 85025; 87635; 96372; 99284; J1885

== ENCOUNTER → 2022-05-29 10:06 | Outpatient (BNVA) | payer MEDICARE, MEDICAID, SELFPAY | PROVIDERS: PCP Internal Medicine; Visit Provider Hospitalist | DX: J45.40 Moderate persistent asthma, uncomplicated (principal); J30.9 Allergic rhinitis, unspecified; K21.00 Gastro-esophageal reflux disease with esophagitis, without bleeding; J98.4 Other disorders of lung; G47.33 Obstructive sleep apnea (adult) (pediatric); Z99.89 Dependence on other enabling machines and devices | CPT/HCPCS: 99212 ==

== ENCOUNTER → 2022-07-16 12:03 | Outpatient (BNVA) | payer MEDICARE, MEDICAID, SELFPAY | PROVIDERS: PCP Internal Medicine; Referring Provider Internal Medicine; Visit Provider Nurse Practitioner | DX: K31.84 Gastroparesis (principal); K59.00 Constipation, unspecified; K22.70 Barrett's esophagus without dysplasia; K21.00 Gastro-esophageal reflux disease with esophagitis, without bleeding; R10.33 Periumbilical pain; K64.9 Unspecified hemorrhoids; Z79.899 Other long term (current) drug therapy | CPT/HCPCS: 99212 ==

== ENCOUNTER 2022-08-08 09:41 | Outpatient (REF) | payer MEDICARE, MEDICAID, SELFPAY ==
--- NOTE | ~2022-08-08 | XR_ITS ---
EXAMINATION: XR ABDOMEN COMPLETE CLINICAL INDICATION: Periumbilical pain COMPARISON: Previous CT of the abdomen and pelvis May 2020 TECHNIQUE: 2 views of the abdomen. FINDINGS: There is stool throughout the colon suggestive of constipation. There are no dilated loops of bowel to suggest obstruction. There is no evidence of free air. Small renal stone seen by CT is not appreciated. There are degenerative changes of the spine. XR/XR abdomen min 2V IMPRESSION: Constipation.
== END 2022-08-08 09:42 | disposition home or self-care (01) ==
LOC: HO.XRAY 09:41
PROVIDERS: PCP Internal Medicine; Visit Provider Nurse Practitioner
DX: R10.33 Periumbilical pain (principal)
CPT/HCPCS: 74019

== ENCOUNTER → 2022-08-12 10:31 | Outpatient (BNVA) | payer MEDICARE, MEDICAID, SELFPAY | PROVIDERS: PCP Internal Medicine; Visit Provider Nurse Practitioner | DX: K59.00 Constipation, unspecified (principal); K22.70 Barrett's esophagus without dysplasia; K31.84 Gastroparesis; K21.00 Gastro-esophageal reflux disease with esophagitis, without bleeding | CPT/HCPCS: 99212 ==

== ENCOUNTER 2022-10-16 10:28 | Outpatient (REF) | payer MEDICARE, MEDICAID, SELFPAY ==
--- NOTE | ~2022-10-16 | CT_ITS ---
EXAMINATION: CT HEAD WITHOUT CONTRAST CLINICAL INFORMATION: Head injury. COMPARISON: CT brain 05/09/2022 TECHNIQUE: Contiguous axial imaging was performed from the skull base to vertex without intravenous administration of contrast. This CT examination was performed using dose optimization techniques as appropriate, variously including the following: *Automated exposure control *Adjustment of mA and/or kV according to patient size (this includes techniques or standardized protocols for targeted exams where dose is matched to indication/reason for exam; i.e. extremities or head) *Use of iterative reconstruction technique DLP: 670 mGy-cm FINDINGS: There is no acute intra-axial, extra-axial bleed, masses, collection or midline shift. There is no acute infarction in evolution. There is no edema. The lateral ventricles are symmetrical in size and configuration without enlargement. Bone windows reveal right frontal extracranial cortical prominence likely related to old injury. Subtle lucency seen in the midline right frontal bone. No fracture identified. These calvarial findings are unchanged to previous CT 05/09/2022. There is no scalp soft tissue abnormality. Bilateral paranasal sinuses and mastoid air cells are well-aerated. CT/CT head/brain wo IV con IMPRESSION: No acute intracranial process seen.
== END 2022-10-16 10:29 | disposition home or self-care (01) ==
LOC: HO.CT 10:28
PROVIDERS: PCP Internal Medicine; Visit Provider Internal Medicine
DX: S09.90XA Unspecified injury of head, initial encounter (principal); Z91.81 History of falling
CPT/HCPCS: 70450

== ENCOUNTER → 2022-10-28 14:44 | Outpatient (BNVA) | payer MEDICARE, MEDICAID, SELFPAY | PROVIDERS: PCP Internal Medicine; Referring Provider Internal Medicine; Visit Provider Internal Medicine | DX: I25.10 Atherosclerotic heart disease of native coronary artery without angina pectoris (principal); E11.8 Type 2 diabetes mellitus with unspecified complications; I10 Essential (primary) hypertension; E78.5 Hyperlipidemia, unspecified; Z79.82 Long term (current) use of aspirin; Z79.84 Long term (current) use of oral hypoglycemic drugs; Z79.899 Other long term (current) drug therapy | CPT/HCPCS: 99212 ==

== ENCOUNTER 2022-11-10 13:24 | Observation (INO) | payer MEDICARE, MEDICAID, SELFPAY ==
[2022-11-10] VITALS (8 sets, daily range): BP systolic 140–184; BP diastolic 67–97; PULSE 80–94; RESP 15–20; TEMP 36.7–37.1; O2SAT 92–100; BMI 37.6
--- NOTE | ~2022-11-10 | FL_ITS ---
EXAMINATION: XR BARIUM SWALLOW CLINICAL INFORMATION: Dysphagia. COMPARISON: None TECHNIQUE: Routine modified barium swallow was performed with patient sitting under lateral fluoroscopy with oral administration of various consistency food coated in barium by speech therapist. FINDINGS: On oral administration of thin, thick, puree, ground chicken and cookie all coated with barium. There is normal progression of bolus from the oral cavity through the pharynx into esophagus without laryngeal penetration or aspiration. No retention of barium seen in the valleculae or piriform sinuses. FLUOROSCOPY TIME: 2.3 minutes DOSE AREA PRODUCT: 2.629 uGy-m2 (microgray-meter squared) FL/FL barium swallow modified IMPRESSION: 1. Unremarkable modified barium swallow exam. 2. Correlate with speech therapy results.
--- NOTE | ~2022-11-10 | CT_ITS ---
EXAMINATION: CT HEAD WITHOUT CONTRAST CT FACIAL BONES WITHOUT CONTRAST CT CERVICAL SPINE WITHOUT CONTRAST CLINICAL INFORMATION: Fall. Head strike. Laceration of the left eyebrow. Nasal swelling. Neck pain. COMPARISON: CT head from 10/10/2022. CT head and cervical spine from 05/09/2022. TECHNIQUE: Imaging was performed from the skull base to vertex without intravenous administration of contrast. In addition, helical noncontrast CT imaging was acquired through the cervical spine and facial bones and source images were reviewed along with axial reconstructions and sagittal and coronal MPRs. This CT examination was performed using dose optimization techniques as appropriate, variously including the following: *Automated exposure control. *Adjustment of mA and/or kV according to patient size (this includes techniques or standardized protocols for targeted exams where dose is matched to indication/reason for exam; i.e. extremities or head). *Use of iterative reconstruction technique. DLP: 1911 mGy-cm FINDINGS: Head: There is no evidence of acute intracranial hemorrhage or edematous territorial infarction. Roper-white matter differentiation is preserved. There is no abnormal attenuation within the brain parenchyma. The ventricles are normal in morphology and size. No evidence for obstructive hydrocephalus. No abnormal mass effect or midline shift. No extra-axial fluid collections. Soft tissue laceration along the left aspect of the frontal bone and left supraorbital ridge with mild soft tissue edema/hematoma. No associated osseous calvarial abnormalities. No radiopaque foreign bodies. There is a sessile osteoma along the high right parietal bone. Maxillofacial Bones: Mildly displaced bilateral nasal bone fractures. Moderate soft tissue edema/hematoma along the nasal bridge. Moderate leftward nasal septal deviation. No evidence of additional maxillofacial bone fractures. The zygomatic arches remain intact. No evidence of mandibular or maxillary fracture. The mandibular condyles remain well-seated in their respective temporal articular grooves. Normal appearance of the intraconal and extraconal fat. No evidence of traumatic injury to the extraocular musculature or globes. Mild mucosal thickening of the paranasal sinuses. The mastoid air cells and middle ear cavities are clear. No layering fluid collections. Cervical Spine: The atlantooccipital and atlantoaxial articulations remain well aligned. Straightening of the normal cervical lordosis. Otherwise, there is anatomic alignment of the vertebral bodies and posterior elements. No evidence of acute fracture or subluxation. The vertebral body heights are maintained. Moderate degenerative disc disease from C4-C7. Mild multilevel facet and uncovertebral joint arthropathy. No demonstrated overt spinal canal or neural foraminal stenosis. There is no prevertebral soft tissue swelling. The thyroid gland and remaining cervical soft tissues are normal in appearance. The lung apices demonstrate no abnormalities. CT/CT cervical spine wo IV con IMPRESSION: 1. No evidence of acute intracranial hemorrhage or edematous territorial infarction. 2. No evidence of acute fracture or traumatic subluxation of the cervical spine. Mild to moderate multilevel degenerative spondyloarthropathy of the cervical spine. 3. Mildly displaced bilateral nasal bone fractures with moderate soft tissue edema/hematoma along the nasal bridge. 4. Soft tissue laceration along the left aspect of the frontal bone/left supraorbital ridge. No associated osseous calvarial abnormalities.
--- NOTE | 2022-11-10 13:42 | ECG_ITS ---
Test Reason : FALL Blood Pressure : / mmHG Vent. Rate : 085 BPM Atrial Rate : 085 BPM P-R Int : 162 ms QRS Dur : 170 ms QT Int : 434 ms P-R-T Axes : 070 -49 004 degrees QTc Int : 516 ms Normal sinus rhythm Left axis deviation Right bundle branch block Abnormal ECG When compared with ECG of 29-NOV-2015 13:52, No significant change was found Referred By: Graciela Nevarez Electronically Signed By:SALEEM WANG
[2022-11-10 14:11] LABS: MANUAL DIFF FLAG NO
[2022-11-10 14:13] LABS: Basophils Absolute Auto 0.1 X10*3/uL (0.0-0.2); Basophils Percent Auto 0.5 % (0-2); Eosinophils Absolute Auto 0.2 X10*3/uL (0.0-0.4); Eosinophils Percent Auto 2.5 % (0-4); Hematocrit 41.2 % (37.0-47.0); Hemoglobin 13.1 g/dl (12.0-16.0); Imm Gran Abs Auto 0.02 X10*3/uL (0.00-0.03); Imm Gran Pct Auto 0.2 % (0.0-0.4); Lymphocytes Absolute Auto 1.9 X10*3/uL (1.2-4.9); Lymphocytes Percent Auto 20.3 % (20-40); Mean Corpuscular HGB Conc 31.8 g/dl (31.0-35.0); Mean Corpuscular Hemoglobin 25.9 pg (27.0-33.0); Mean Corpuscular Volume 81.6 fL (80.0-98.0); Mean Platelet Volume 10.5 fL (9.4-12.3); Monocytes Absolute Auto 0.4 X10*3/uL (0.1-1.2); Neutrophils Absolute Auto 6.6 x10*3/uL (2.0-8.3); Neutrophils Percent Auto 72.5 % (45-73); Platelet Count 198 X10*3/uL (160-400); Red Blood Count 5.05 X10*6/uL (4.20-5.50); Red Cell Distribution Width 13.5 % (11.0-16.0); White Blood Count 9.2 X10*3/uL (4.8-10.8)
[2022-11-10 14:14] LABS: Venous Blood Gas Refer to POC result
[2022-11-10 14:15] LABS: VBG Base Excess -4.6 mmol/L; VBG HCO3 20 mmol/L (22-26); VBG pCO2 38 mmHg; VBG pH 7.33 (7.32-7.43); VBG pO2 60 mmHg
[2022-11-10 14:31] LABS: IDNOW Serial# BCCEAD1C; Influenza A Negative (Negative); Influenza B2 Negative (Negative)
[2022-11-10 14:32] LABS: COVID-19 Test Negative (Negative); IDNOW Serial# 16C4AD1C
[2022-11-10 14:37] LABS: Alanine Aminotransferase 35 U/L (0-31); Albumin Level 4.1 g/dL (3.5-5.0); Alkaline Phosphatase 144 U/L (39-117); Anion Gap 16 (12-20); Aspartate Amino Transferase 29 U/L (5-31); Bilirubin Total 0.6 mg/dL (0.0-1.0); Blood Urea Nitrogen 11 mg/dL (9-16); Calcium 9.6 mg/dL (8.4-10.2); Carbon Dioxide 23 mmol/L (22-29); Chloride 100 mmol/L (96-108); Creatinine Clr Calc Pharmacy 54.3; Estimated Glomerular Filt Rate 45; Lipase 19 U/L (8-78); Magnesium 1.8 mg/dL (1.6-2.6); Sodium 135 mmol/L (135-145); Total Protein 7.6 g/dL (6.5-8.0)
[2022-11-10 14:41] LABS: Acetone, serum QL Negative (Negative)
--- NOTE | 2022-11-10 14:49 | ED.FALL ---
HPI - Fall General Chief Complaint: Fall Stated Complaint: fall with head strike in ccollar Time Seen by Provider: 11/10/22 13:37 Source: patient Mode of arrival: EMS Limitations: no limitations History of Present Illness HPI Narrative: Patient is a 66-year-old female who presents to the emergency department via EMS. Today she was leaving her daughter's home when she was stepping out of the front door onto the port she went down a couple of stairs, patient reports that she suddenly blacked out . Does not recall what happened. She awoke lying on the floor of the porch. This was unwitnessed. Denies being on anticoagulants. When asked, she denies any preceding symptoms, although she does endorse having intermittent dizziness at times which she has attributed to her medications before. Currently complaining of head pain. Denies fevers, chills, recent URI symptoms, chest pain, palpitations, shortness of breath, vision changes, neck pain, nausea vomiting, abdominal pain, dysuria, urinary frequency Related Data Home Medications Medication Instructions Recorded Confirmed amitriptyline 100 mg tablet 200 mg PO BEDTIME 10/29/20 11/10/22 aspirin 81 mg tablet,delayed 81 mg PO DAILY 10/29/20 11/10/22 release unimlgshah-kuhfxhqcbvvzr-vmmfnxzk 1 tab PO TID PRN Pain 10/29/20 11/10/22 50 mg-325 mg-40 mg tablet cholecalciferol (vitamin D3) 50 50 mcg PO DAILY 10/29/20 11/10/22 mcg (2,000 unit) capsule cyanocobalamin (vitamin B-12) 1,000 mcg PO DAILY 10/29/20 11/10/22 1,000 mcg tablet mirtazapine 45 mg tablet 45 mg PO BEDTIME 10/29/20 11/10/22 trazodone 100 mg tablet 100 mg PO BEDTIME 10/29/20 11/10/22 topiramate 100 mg tablet 100 mg PO BID 07/16/21 11/10/22 epinephrine 0.3 mg/0.3 mL 3 mg IM DIRECTED anaphylaxis 01/30/22 11/10/22 injection, auto-injector celecoxib 200 mg capsule 200 mg PO DAILY 05/05/22 11/10/22 cetirizine 10 mg tablet 10 mg PO BEDTIME 05/05/22 11/10/22 lancets 33 gauge (TRUEplus Lancets) #100 ea 08/12/22 10/28/22 venlafaxine 37.5 mg 37.5 mg PO DAILY 08/12/22 11/10/22 capsule,extended release 24 hr clonazepam 1 mg tablet 1 mg PO BID PRN Anxiety 10/28/22 11/10/22 metformin 500 mg tablet,extended 1,000 mg PO QAM 10/28/22 11/10/22 release 24 hr dulaglutide 1.5 mg/0.5 mL 1.5 mg subcut QWEEK 11/10/22 11/10/22 subcutaneous pen injector (Trulicity) pregabalin 200 mg capsule 1 cap PO BID 11/10/22 11/10/22 simethicone 180 mg capsule 180 mg PO QID PRN Abdominal Pain 11/10/22 11/10/22 Previous Rx's Medication Instructions Recorded amlodipine 10 mg tablet 10 mg PO DAILY 90 days #90 tabs 09/17/20 ezetimibe 10 mg tablet (Zetia) 10 mg PO DAILY 90 days #90 tabs 09/26/20 umeclidinium 62.5 mcg/actuation 1 inh PO DAILY 30 days #30 caps 02/01/21 blister powder for inhalation (Incruse Ellipta) atorvastatin 80 mg tablet 80 mg PO DAILY #90 tabs 04/01/21 albuterol sulfate 2.5 mg/3 mL 2.5 mg (3 mL) inhalation Q4H PRN 01/03/22 (0.083 %) solution for nebulization shortness of breath or wheezing 30 days #180 mL albuterol sulfate 90 mcg/actuation 2 puff inhalation QID PRN 01/03/22 aerosol inhaler (Ventolin HFA) shortness of breath or wheezing 30 days #18 grams fluticasone 250 mcg-salmeterol 50 1 inh inhalation Q12H 30 days #60 01/03/22 mcg/dose blistr powdr for ea inhalation (Advair Diskus) metoprolol succinate 25 mg 25 mg PO DAILY #90 tabs 01/03/22 tablet,extended release 24 hr (Toprol XL) sennosides 8.6 mg capsule (senna) 17.2 mg PO BEDTIME constipation 30 07/16/22 days #60 caps metoclopramide HCl 5 mg tablet 5 mg PO TID #90 tabs 08/12/22 omeprazole 40 mg capsule,delayed 40 mg PO BID 30 days #60 caps 08/12/22 release sucralfate 1 gram tablet 2 g PO DAILY 90 days #180 tabs 08/12/22 nitroglycerin 0.4 mg sublingual 0.4 mg sublingual Q5M #25 tabs 08/14/22 tablet Allergies Allergy/AdvReac Type Severity Reaction Status Date / Time bee pollen [BEE STINGS] Allergy Unknown ANAPHYLAXIS Verified 10/28/22 14:46 morphine [MORPHINE] Allergy Unknown ITCHING Verified 10/28/22 14:46 Review of Systems Review of Systems: Constitutional : No Fever, No Chills, No Fatigue ENT/Mouth : No sore throat, No Rhinorrhea Eyes: No Eye Pain, No Swelling, No Redness Cardiovascular : No Chest Pain, No SOB, No Dyspnea on Exertion Respiratory : No Cough, No Sputum Gastrointestinal : No Nausea, No Vomiting, No Diarrhea, No abdominal Pain Genitourinary : No Dysuria, No Urinary Frequency, No Hematuria, Musculoskeletal : No joint pain, No Myalgias, No Joint Swelling Skin : No Skin Lesions, No rash Neuro : Positive intermittent dizziness, not current. positive syncope. No Weakness, No Numbness, No Headache Psych : No Anxiety/Panic, No Depression Heme/Lymph: No Bruising, No Bleeding, No Lymphadenopathy Endocrine : No Polyuria, No Polydipsia Yes all other systems are reviewed and are negative [facility] Past Medical History Attestation statement: The following information was validated with the patient. Source: old records reviewed Medical History Asthma Atherosclerotic cardiovascular disease Chronic allergic rhinitis Chronic restrictive lung disease Essential hypertension EDWIN on CPAP Other and unspecified hyperlipidemia Type 2 diabetes mellitus with unspecified complications Surgical History History of esophagogastroduodenoscopy (EGD) Hx of colonoscopy Family History Family History Mother HTN (hypertension) Heart disease Asthma Maternal Aunt Breast cancer Maternal Aunt Tumor Maternal Aunt Cancer Social History Social History Household Members Other:: 4 household members Alcohol intake: never Patient Tobacco Use Status: Never used Tobacco Advance Directives: No Advance Directives Information Provided: No Physical Exam Vital Signs: Vital Signs: Last Vital Signs Temp 98.7 F 11/10/22 19:29 Pulse 85 11/10/22 19:29 Resp 16 11/10/22 19:29 BP 181/75 H 11/10/22 19:29 Pulse Ox 96 11/10/22 19:29 O2 Del Method 11/10/22 19:29 BMI result Body Mass Index 37.6 Vital signs have been reviewed as normal and appeared to be correct. Blood pressure normal.? Heart rate normal.? Respiration rate normal. Temperature normal.? Oxygen saturation normal. Appearance: Alert.?Oriented to person, place and time. No acute distress.?Normal affect. Head: Normocephalic, Left medial brow laceration, 3 cm, bleeding controlled. Eyes: Sclera white, conjunctiva pink. PERRL, 3 mm bilaterally. Visual amanda full to confrontation, EOMi.?No Nystagmus. positive infraorbital bruising bilaterally. Ears: Bilateral ear canals clear, TM visible with good cone of light.? no pringle sign Nose: Nasal mucosa pink and moist, nares patent bilaterally.? Tenderness upon palpation over nasal bridge with swelling and obvious deformity, no septal hematoma Mouth/ Throat: Oral mucosa pink and moist without lesions. Pharynx normal Neck: Normal inspection.? Neck supple.?? No midline cervical spine tenderness, step-offs, deformities CVS: Heart sounds normal. Normal heart rate and rhythm.? Pulses normal.?? Respiratory: No respiratory distress.? Lung sounds clear to auscultation bilaterally?? Abdomen: Soft and non-tender. Normoactive bowel sounds. Skin: Skin warm and dry.? Normal skin color.? Extremities: No lower extremity edema. Neuro: No focal neurological deficit observed, CN II-XII intact, normal sensory observed, normal coordination observed. Level of consciousness: Appropriate for age. Motor strength: right upper extremity 5 /5, left upper extremity 5 /5, right lower extremity 5 /5, left lower extremity 5 /5.?Speech: Normal, Gait: Normal, Gacakn-ex-erqs test: Normal, Azno-tz-oqfp test: Normal. Ambulates with normal steady gait. Course Reevaluation(s) Reevaluation #1: Neurological exam remains nonfocal without abnormal findings. Patient without ataxia, dysarthria, dysphagia. CBC is overall unremarkable, no leukocytosis or anemia. CMP is overall unremarkable, mildly elevated ALT and alkaline phosphatase consistent with prior. Troponin 5.0, EKG revealing normal sinus rhythm with right bundle branch block as seen on prior EKG in 2016, is not appear to have any acute ischemic findings, Not suspect ACS at this time.. Glucose 779, patient to receive 1 L normal saline IV fluid, in addition to insulin lispro 10 units subcutaneous. No anion gap, acetone negative, does not appear consistent with DKA at this time. Time: 15:30 Reevaluation #2: Glucose improved to 557 after medicated as above, patient received an additional 1L IV fluids. Patient is status post laceration repair with blank sutures, tolerated procedure well, performed under aseptic technique. Given unknown etiology of patient's syncopal episode, patient will require admission for further evaluation. Time: 18:29 Reevaluation #3: Patient accepted for admission to medicine service by hospitalist; Dr. Alonso, patient accepted for admission to medicine service. Patient updated on plan of care and is agreeable. Time: 19:00 Medications Administered Discontinued Medications Generic Name Dose Route Start Last Admin Trade Name Freq PRN Reason Stop Dose Admin Acetaminophen 975 mg 11/10/22 18:25 11/10/22 19:36 Acetaminophen 325 Mg Tablet PO 11/10/22 18:26 975 mg ONCE ONE Administration Sodium Chloride 1,000 mls @ 999 mls/hr 11/10/22 15:45 11/10/22 17:33 Ns IV 11/10/22 16:45 Infused .Q1H1M JACQUES Infusion Sodium Chloride 1,000 mls @ 999 mls/hr 11/10/22 17:45 11/10/22 18:10 Ns IV 11/10/22 18:45 999 mls/hr .Q1H1M JACQUES Administration Insulin Human Lispro 10 unit 11/10/22 15:33 11/10/22 15:44 Insulin Lispro 100 Unit/Ml 3 Ml Vial SUBCUT 11/10/22 15:34 10 unit ONCE ONE Administration Lidocaine HCl 5 ml 11/10/22 17:32 11/10/22 17:47 Lidocaine Hcl 1 % Mpf 2 Ml Vial INFILTRATI 11/10/22 17:33 5 ml ONCE ONE Administration Procedures Laceration Laceration 1: Site: face Side (If applicable): left Size (cm): 3 Description: linear Depth: simple, single layer Local Anesthetic: lidocaine 1% and with epi Amount of anesthesia used (mL): 4 Pre-repair: wound explored and irrigated extensively Skin layer closed with: nylon Size (cm): 5-0 Number of sutures: 3 Technique: simple, interrupted Medical Decision Making Medical Decision Making [facility] Narrative: patient is a 66-year-old female with a past medical history of asthma, chronic restrictive lung disease, obstructive sleep apnea on CPAP, hypertension, type 2 diabetes, ASCVD, GERD, Davis's esophagus, gastroparesis. Presenting to emergency department for evaluation after a syncopal episode with subsequent head strike. patient without any focal neurological deficits upon examination. this time patient's only physical complaint is headache. Patient without use of anticoagulants, however given age, past medical history, mechanism of injury will obtain CT of the head, cervical spine, and facial bones to evaluate for fracture, subluxation, SAH, ICH. In addition Will obtain CBC to evaluate for leukocytosis/ anemia, CMP to evaluate for abnormal electrolytes /abnormal renal function/ abnormal hepatic function, EKG and troponin to evaluate for ischemia/ACS, and Urinalysis. Differential Diagnosis Differential Diagnoses: The differential diagnosis associated with the presentation includes ( as noted above) Admission/Observation Consideration of admission/observation: Escalation of care including admission/observation considered Consult Healthcare Provider Management of the patient was discussed with: Hospitalist ( As noted in course) Lab Data [facility] Lab Attestation statement: I reviewed the patient's lab results. Result Diagrams: 11/10/22 13:53 11/10/22 13:53 Labs: Lab Results 11/10/22 11/10/22 11/10/22 Range/Units 13:53 13:53 13:53 WBC 9.2 (4.8-10.8) X10*3/uL RBC 5.05 (4.20-5.50) X10*6/uL Hgb 13.1 (12.0-16.0) g/dl Hct 41.2 (37.0-47.0) % MCV 81.6 (80.0-98.0) fL MCH 25.9 L (27.0-33.0) pg MCHC 31.8 (31.0-35.0) g/dl RDW 13.5 (11.0-16.0) % Plt Count 198 (160-400) X10*3/uL MPV 10.5 (9.4-12.3) fL Immature Gran % (Auto) 0.2 (0.0-0.4) % Neut % (Auto) 72.5 (45-73) % Lymph % (Auto) 20.3 (20-40) % [place] % (Auto) 4.0 (2-11) % Eos % (Auto) 2.5 (0-4) % Baso % (Auto) 0.5 (0-2) % Lymph # (Auto) 1.9 (1.2-4.9) X10*3/uL [place] # (Auto) 0.4 (0.1-1.2) X10*3/uL Eos # (Auto) 0.2 (0.0-0.4) X10*3/uL Baso # (Auto) 0.1 (0.0-0.2) X10*3/uL Abs Immat Gran (auto) 0.02 (0.00-0.03) X10*3/uL Absolute Neuts (auto) 6.6 (2.0-8.3) x10*3/uL Absolute Nucleated RBC 0.000 (0.0-0.012) X10*3/uL Nucleated RBC % (auto) 0.0 (0.0-0.2) /100WBC VBG pH (7.32-7.43) VBG pCO2 mmHg VBG pO2 mmHg VBG HCO3 (22-26) mmol/L VBG O2 Saturation % VBG Base Excess mmol/L Sodium 135 (135-145) mmol/L Potassium 4.0 (3.3-5.1) mmol/L Chloride 100 (96-108) mmol/L Carbon Dioxide 23 (22-29) mmol/L Anion Gap 16 (12-20) BUN 11 (9-16) mg/dL Creatinine 1.21 (0.5-1.4) mg/dL Estim Creat Clear Calc 54.3 Estimated GFR 45 POC Glucose (60-115) mg/dL Random Glucose 779 H* D (60-115) mg/dL Calcium 9.6 D (8.4-10.2) mg/dL Magnesium 1.8 (1.6-2.6) mg/dL Total Bilirubin 0.6 (0.0-1.0) mg/dL AST 29 (5-31) U/L ALT 35 H (0-31) U/L Alkaline Phosphatase 144 H (39-117) U/L Troponin I High Sens (<3.5-17.0) ng/L Total Protein 7.6 (6.5-8.0) g/dL Albumin 4.1 (3.5-5.0) g/dL Lipase 19 (8-78) U/L Acetone, Qual Negative (Negative) COVID-19 (ABDIEL) Negative (Negative) COVID-19 Clin Com See Note Influenza Type A ([place]) (Negative) Influenza Type B ([place]) (Negative) Influenza A & B Note 11/10/22 11/10/22 11/10/22 Range/Units 13:53 13:53 14:10 WBC (4.8-10.8) X10*3/uL RBC (4.20-5.50) X10*6/uL Hgb (12.0-16.0) g/dl Hct (37.0-47.0) % MCV (80.0-98.0) fL MCH (27.0-33.0) pg MCHC (31.0-35.0) g/dl RDW (11.0-16.0) % Plt Count (160-400) X10*3/uL MPV (9.4-12.3) fL Immature Gran % (Auto) (0.0-0.4) % Neut % (Auto) (45-73) % Lymph % (Auto) (20-40) % [place] % (Auto) (2-11) % Eos % (Auto) (0-4) % Baso % (Auto) (0-2) % Lymph # (Auto) (1.2-4.9) X10*3/uL [place] # (Auto) (0.1-1.2) X10*3/uL Eos # (Auto) (0.0-0.4) X10*3/uL Baso # (Auto) (0.0-0.2) X10*3/uL Abs Immat Gran (auto) (0.00-0.03) X10*3/uL Absolute Neuts (auto) (2.0-8.3) x10*3/uL Absolute Nucleated RBC (0.0-0.012) X10*3/uL Nucleated RBC % (auto) (0.0-0.2) /100WBC VBG pH 7.33 (7.32-7.43) VBG pCO2 38 mmHg VBG pO2 60 mmHg VBG HCO3 20 L (22-26) mmol/L VBG O2 Saturation 86.0 % VBG Base Excess -4.6 mmol/L Sodium (135-145) mmol/L Potassium (3.3-5.1) mmol/L Chloride (96-108) mmol/L Carbon Dioxide (22-29) mmol/L Anion Gap (12-20) BUN (9-16) mg/dL Creatinine (0.5-1.4) mg/dL Estim Creat Clear Calc Estimated GFR POC Glucose (60-115) mg/dL Random Glucose (60-115) mg/dL Calcium (8.4-10.2) mg/dL Magnesium (1.6-2.6) mg/dL Total Bilirubin (0.0-1.0) mg/dL AST (5-31) U/L ALT (0-31) U/L Alkaline Phosphatase (39-117) U/L Troponin I High Sens 5.0 (<3.5-17.0) ng/L Total Protein (6.5-8.0) g/dL Albumin (3.5-5.0) g/dL Lipase (8-78) U/L Acetone, Qual (Negative) COVID-19 (ABDIEL) (Negative) COVID-19 Clin Com Influenza Type A ([place]) Negative (Negative) Influenza Type B ([place]) Negative (Negative) Influenza A & B Note See Note 11/10/22 11/10/22 Range/Units 16:49 19:35 WBC (4.8-10.8) X10*3/uL RBC (4.20-5.50) X10*6/uL Hgb (12.0-16.0) g/dl Hct (37.0-47.0) % MCV (80.0-98.0) fL MCH (27.0-33.0) pg MCHC (31.0-35.0) g/dl RDW (11.0-16.0) % Plt Count (160-400) X10*3/uL MPV (9.4-12.3) fL Immature Gran % (Auto) (0.0-0.4) % Neut % (Auto) (45-73) % Lymph % (Auto) (20-40) % [place] % (Auto) (2-11) % Eos % (Auto) (0-4) % Baso % (Auto) (0-2) % Lymph # (Auto) (1.2-4.9) X10*3/uL [place] # (Auto) (0.1-1.2) X10*3/uL Eos # (Auto) (0.0-0.4) X10*3/uL Baso # (Auto) (0.0-0.2) X10*3/uL Abs Immat Gran (auto) (0.00-0.03) X10*3/uL Absolute Neuts (auto) (2.0-8.3) x10*3/uL Absolute Nucleated RBC (0.0-0.012) X10*3/uL Nucleated RBC % (auto) (0.0-0.2) /100WBC VBG pH (7.32-7.43) VBG pCO2 mmHg VBG pO2 mmHg VBG HCO3 (22-26) mmol/L VBG O2 Saturation % VBG Base Excess mmol/L Sodium (135-145) mmol/L Potassium (3.3-5.1) mmol/L Chloride (96-108) mmol/L Carbon Dioxide (22-29) mmol/L Anion Gap (12-20) BUN (9-16) mg/dL Creatinine (0.5-1.4) mg/dL Estim Creat Clear Calc Estimated GFR POC Glucose 557 H* 355 H* (60-115) mg/dL Random Glucose (60-115) mg/dL Calcium (8.4-10.2) mg/dL Magnesium (1.6-2.6) mg/dL Total Bilirubin (0.0-1.0) mg/dL AST (5-31) U/L ALT (0-31) U/L Alkaline Phosphatase (39-117) U/L Troponin I High Sens (<3.5-17.0) ng/L Total Protein (6.5-8.0) g/dL Albumin (3.5-5.0) g/dL Lipase (8-78) U/L Acetone, Qual (Negative) COVID-19 (ABDIEL) (Negative) COVID-19 Clin Com Influenza Type A ([place]) (Negative) Influenza Type B ([place]) (Negative) Influenza A & B Note Independent Interpretation I performed an independent interpretation of an: EKG Interpretation: Rate: Eighty-five Rhythm:? normal sinus rhythm with right bundle-branch block [place]:? left axis deviation Normal P waves.? Normal ASHLEE.?? ST T wave :?? no ST elevation, no ST depression, no T-wave inversion qTC: 516 prior studies:?2016 The study has been interpreted contemporaneously by me. Radiology Impression Discussion of test interpretation with radiology: I have reviewed the radiologist's reading. Radiologist Impression: CT/CT head/brain wo IV con IMPRESSION: 1.? No evidence of acute intracranial hemorrhage or edematous territorial infarction. 2.? No evidence of acute fracture or traumatic subluxation of the cervical spine. Mild to moderate multilevel degenerative spondyloarthropathy of the cervical spine. 3.? Mildly displaced bilateral nasal bone fractures with moderate soft tissue edema/hematoma along the nasal bridge. 4.? Soft tissue laceration along the left aspect of the frontal bone/left supraorbital ridge. No associated osseous calvarial abnormalities. ? Chronic Conditions Patient?s care impacted by: Diabetes and Hypertension Discharge Plan Discharge Clinical Impression: Syncope, Type 2 diabetes mellitus with unspecified complications, Fracture of nasal bone Patient Disposition: Admitted As Inpatient Prescriptions: No Action amlodipine 10 mg tablet 10 mg PO DAILY 90 Days Qty: 90 1RF ezetimibe [Zetia] 10 mg tablet 10 mg PO DAILY 90 Days Qty: 90 1RF atorvastatin 80 mg tablet 80 mg PO DAILY Qty: 90 1RF albuterol sulfate 2.5 mg /3 mL (0.083 %) solution for nebulization 2.5 mg inhalation Q4H PRN (Reason: shortness of breath or wheezing) 30 Days Qty: 180 11RF albuterol sulfate [Ventolin HFA] 90 mcg/actuation HFA aerosol inhaler 2 puff inhalation QID PRN (Reason: shortness of breath or wheezing) 30 Days Qty: 18 11RF fluticasone propion-salmeterol [Advair Diskus] 250-50 mcg/dose blister with device 1 inh inhalation Q12H 30 Days Qty: 60 11RF metoprolol succinate [Toprol XL] 25 mg tablet extended release 24 hr 25 mg PO DAILY Qty: 90 4RF nitroglycerin 0.4 mg tablet, sublingual 0.4 mg sublingual Q5M Qty: 25 5RF pregabalin 200 mg capsule 1 cap PO BID Trulicity 1.5 mg/0.5 mL pen injector 1.5 mg subcut QWEEK simethicone 180 mg capsule 180 mg PO QID PRN (Reason: Abdominal Pain) Rx Instructions: after meals aspirin 81 mg tablet,delayed release (DR/EC) 81 mg PO DAILY amitriptyline 100 mg tablet 200 mg PO BEDTIME cyanocobalamin (vitamin B-12) 1,000 mcg tablet 1,000 mcg PO DAILY ppcfdjtifd-xozqsufzsmvjs-giai 50-325-40 mg tablet 1 tab PO TID PRN (Reason: Pain) mirtazapine 45 mg tablet 45 mg PO BEDTIME cholecalciferol (vitamin D3) 50 mcg (2,000 unit) capsule 50 mcg PO DAILY trazodone 100 mg tablet 100 mg PO BEDTIME topiramate 100 mg tablet 100 mg PO BID Incruse Ellipta 62.5 mcg/actuation blister with device 1 inh PO DAILY 30 Days Qty: 30 11RF epinephrine 0.3 mg/0.3 mL auto-injector 3 mg IM DIRECTED celecoxib 200 mg capsule 200 mg PO DAILY cetirizine 10 mg tablet 10 mg PO BEDTIME metformin 500 mg tablet extended release 24 hr 1,000 mg PO QAM clonazepam 1 mg tablet 1 mg PO BID PRN (Reason: Anxiety) senna 8.6 mg capsule 17.2 mg PO BEDTIME 30 Days Qty: 60 4RF venlafaxine 37.5 mg capsule,extended release 24hr 37.5 mg PO DAILY (DME) lancets [TRUEplus Lancets] 33 gauge misc See Rx Instructions .ROUTE BID Qty: 100 Rx Instructions: As directed omeprazole 40 mg capsule,delayed release(DR/EC) 40 mg PO BID 30 Days Qty: 60 4RF sucralfate 1 gram tablet 2 g PO DAILY 90 Days Qty: 180 1RF metoclopramide HCl 5 mg tablet 5 mg PO TID Qty: 90 4RF
[2022-11-10 15:02] LABS: Glucose Random 779 mg/dL (60-115)
[2022-11-10] MEDS: 0.9 % Sodium Chloride 1,000 ML 999 ML IV ×2 (15:44→18:10)
[2022-11-10] MEDS: Insulin Lispro 100 UNIT/ML 3 ML VIAL 10 UNIT SUBCUT (15:44)
[2022-11-10 16:53] LABS: Glucose, Whole Blood 557 mg/dL (60-115)
[2022-11-10] MEDS: Lidocaine HCl 1 % MPF 2 ML VIAL 5 ML INFILTRATI (17:47)
--- NOTE | 2022-11-10 19:01 | PHA.MEDREC ---
Pharmacy Consult ? Medication Reconciliation Pharmacy has completed the medication reconciliation. Went to see patient with [employer], patient was only able to name a few medications. Told me she picks up from [place]. I used the pharmacy claims as well as previous office visits to compile her list.
[2022-11-10] MEDS: Acetaminophen 325 MG TABLET 975 MG PO (19:36)
[2022-11-10 19:39] LABS: Glucose, Whole Blood 355 mg/dL (60-115)
--- NOTE | 2022-11-10 20:38 | P.HPHOSP_ITS ---
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 Patient states she was leaving her daughter's home when she opened the door and suddenly felt weak in her legs and knees and then blacked out?. It is unclear whether she blacked out before she fell or as a result of her fall. Patient cannot recall exactly what happened. Fall was unwitnessed and it is unclear how long she was out for. When she came to patient was on the floor on her daughter's porch and she was bleeding from a cut above her left eye sustained in the fall. She was dizzy for a minute or two but was able to call her daughter for help. Patient states that she often feels dizzy in the morning when she tries to wake up. When this happens she lays back down and the dizziness usually passes within a few minutes. Patient notes that she has occasional chest pain and pressure at rest, says it occurs roughly once a week Patient currently has no dizziness or lightheadedness, no chest pain/pressure, palpitations. No shortness of breath. She does complain of pain and difficulty breathing through her nose due to swelling. Patient complains of chronic lower right abdominal pain which she has had extensive workup in the past for with no clear diagnosis. Patient states she has been eating and drinking normally. Denies recent sickness, nausea, vomiting, fever, chills. No new medications. Of note, pt has a diagnosis of CAD and followed by Dr. Freeman, last seen on 10/28/2022. Coronary CTA showed moderate calcification of the LAD and circumflex with no occlusion. Patient has not undergone cardiac catheterization although it has been discussed. In the ED patient was noted to have a 3 cm laceration above her left eye brow and infraorbital bruising bilaterally. Labs were significant for elevated random glucose of 779 and elevated alk-phos of 144; otherwise unremarkable. CT?of the head face and cervical spine showed no evidence of acute intracranial hemorrhage or edematous territorial infarction and mildly displaced bilateral nasal bone fractures. EKG showed normal sinus rhythm with right bundle-branch block as seen on previous EKG, no acute ischemic findings. Pt was treated with 2 L of normal saline and received 10 units of Humalog. Orthostatics were negative how ever they were administered after she received 1 L of normal saline. Patient given Tylenol and facial laceration repaired. Pt will be admitted to telemetry observation for additional workup and evaluation of syncope. Review of Systems Review of Systems: Syncopal episode Momentary Dizziness and lightheadedness post-syncope Facial pain, primarily centered around her nose and left forehead No chest pain/pressure, palpitations No shortness of breath Yes all other systems are reviewed and are negative [facility] Medical History Asthma Atherosclerotic cardiovascular disease Chronic allergic rhinitis Chronic restrictive lung disease Essential hypertension EDWIN on CPAP Other and unspecified hyperlipidemia Type 2 diabetes mellitus with unspecified complications Family History Mother HTN (hypertension) Heart disease Asthma Maternal Aunt Breast cancer Maternal Aunt Tumor Maternal Aunt Cancer Surgical History History of esophagogastroduodenoscopy (EGD) Hx of colonoscopy Social History Household Members Other:: 4 household members Alcohol intake: unknown Patient Tobacco Use Status: Never used Tobacco Smoked in Last 30 Days: No Use of substances other than those prescribed or required for medical reasons: No Advance Directives: No Advance Directives Information Provided: No Meds Allergies Allergy/AdvReac Type Severity Reaction Status Date / Time bee pollen [BEE STINGS] Allergy Unknown ANAPHYLAXIS Verified 10/28/22 14:46 morphine [MORPHINE] Allergy Unknown ITCHING Verified 10/28/22 14:46 Active Medications: Current Medications Pharmacy Consult (Consult Rx Perform Med Rec) 1 each MISCELLANE ONCE PRN PRN Reason: Consult order Home Medications Medication Instructions Recorded Confirmed Last Taken Type amitriptyline 100 mg tablet 200 mg PO BEDTIME 10/29/20 11/10/22 Unknown History aspirin 81 mg tablet,delayed 81 mg PO DAILY 10/29/20 11/10/22 Unknown History release frqvfepglm-iqpxmqvepzyil-hphotryy 1 tab PO TID PRN Pain 10/29/20 11/10/22 Unknown History 50 mg-325 mg-40 mg tablet cholecalciferol (vitamin D3) 50 50 mcg PO DAILY 10/29/20 11/10/22 Unknown History mcg (2,000 unit) capsule cyanocobalamin (vitamin B-12) 1,000 mcg PO DAILY 10/29/20 11/10/22 Unknown History 1,000 mcg tablet mirtazapine 45 mg tablet 45 mg PO BEDTIME 10/29/20 11/10/22 Unknown History trazodone 100 mg tablet 100 mg PO BEDTIME 10/29/20 11/10/22 Unknown History topiramate 100 mg tablet 100 mg PO BID 07/16/21 11/10/22 Unknown History epinephrine 0.3 mg/0.3 mL 3 mg IM DIRECTED anaphylaxis 01/30/22 11/10/22 Unknown History injection, auto-injector celecoxib 200 mg capsule 200 mg PO DAILY 05/05/22 11/10/22 Unknown History cetirizine 10 mg tablet 10 mg PO BEDTIME 05/05/22 11/10/22 Unknown History lancets 33 gauge (TRUEplus Lancets) #100 ea 08/12/22 11/11/22 Unknown History venlafaxine 37.5 mg 37.5 mg PO DAILY 08/12/22 11/10/22 Unknown History capsule,extended release 24 hr clonazepam 1 mg tablet 1 mg PO BID PRN Anxiety 10/28/22 11/10/22 Unknown History metformin 500 mg tablet,extended 1,000 mg PO QAM 10/28/22 11/10/22 Unknown History release 24 hr dulaglutide 1.5 mg/0.5 mL 1.5 mg subcut QWEEK 11/10/22 11/10/22 Unknown History subcutaneous pen injector (Trulicity) pregabalin 200 mg capsule 1 cap PO BID 11/10/22 11/10/22 Unknown History simethicone 180 mg capsule 180 mg PO QID PRN Abdominal Pain 11/10/22 11/10/22 Unknown History Physical Exam Vital Signs and Narrative: Vital Signs: Last Vital Signs Temp 98.7 F 11/10/22 19:29 Pulse 85 11/10/22 19:29 Resp 16 11/10/22 19:29 BP 181/75 H 11/10/22 19:29 Pulse Ox 96 11/10/22 19:29 O2 Del Method 11/10/22 19:29 BMI result Body Mass Index 37.6 Constitutional: Alert, in no acute distress. Mental Status: Oriented to person, place and time. Eyes: Pupils are equal, round, and reactive to light. Infraorbital bruising noted bilaterally. Ear, Nose, and Throat: 3 cm laceration noted above left eyebrow, sutured with bleeding controlled. Nose with obvious swelling and deformity. Oropharynx clear, mucous membranes moist. Ears without deformities. Trachea midline. Respiratory: Clear to auscultation bilaterally. No wheezing, rales, or rhonchi. Cardiovascular: S1, S2 regular. No murmurs, rubs, or gallops. Gastrointestinal: Abdomen soft, non-distended, tenderness to lower right quadrant. Normal bowel sounds. Neurologic: Cranial nerves II-XI are grossly intact. No focal neurological deficits. Moves all extremities spontaneously. Musculoskeletal: No cyanosis or clubbing. Extremities: No edema. Psychiatric: Normal mood and affect. Results Labs CBC and Chem 7: 11/10/22 13:53 11/10/22 13:53 Labs: Laboratory Results - last 24 hr 11/10/22 11/10/22 11/10/22 13:53 13:53 13:53 MCV 81.6 MCH 25.9 L MCHC 31.8 RDW 13.5 Plt Count 198 MPV 10.5 Immature Gran % (Auto) 0.2 Neut % (Auto) 72.5 Lymph % (Auto) 20.3 [place] % (Auto) 4.0 Eos % (Auto) 2.5 Baso % (Auto) 0.5 Lymph # (Auto) 1.9 [place] # (Auto) 0.4 Eos # (Auto) 0.2 Baso # (Auto) 0.1 Abs Immat Gran (auto) 0.02 Absolute Neuts (auto) 6.6 Absolute Nucleated RBC 0.000 Nucleated RBC % (auto) 0.0 VBG pH VBG pCO2 VBG pO2 VBG HCO3 VBG O2 Saturation VBG Base Excess Anion Gap 16 Estim Creat Clear Calc 54.3 Estimated GFR 45 POC Glucose Random Glucose 779 H* D Calcium 9.6 D Magnesium 1.8 Total Bilirubin 0.6 AST 29 ALT 35 H Alkaline Phosphatase 144 H Troponin I High Sens Total Protein 7.6 Albumin 4.1 Lipase 19 Acetone, Qual Negative COVID-19 (ABDIEL) Negative COVID-19 Clin Com See Note Influenza Type A (COLETTE) Influenza Type B (COLETTE) Influenza A & B Note 11/10/22 11/10/22 11/10/22 13:53 13:53 14:10 MCV MCH MCHC RDW Plt Count MPV Immature Gran % (Auto) Neut % (Auto) Lymph % (Auto) [place] % (Auto) Eos % (Auto) Baso % (Auto) Lymph # (Auto) [place] # (Auto) Eos # (Auto) Baso # (Auto) Abs Immat Gran (auto) Absolute Neuts (auto) Absolute Nucleated RBC Nucleated RBC % (auto) VBG pH 7.33 VBG pCO2 38 VBG pO2 60 VBG HCO3 20 L VBG O2 Saturation 86.0 VBG Base Excess -4.6 Anion Gap Estim Creat Clear Calc Estimated GFR POC Glucose Random Glucose Calcium Magnesium Total Bilirubin AST ALT Alkaline Phosphatase Troponin I High Sens 5.0 Total Protein Albumin Lipase Acetone, Qual COVID-19 (ABDIEL) COVID-19 Clin Com Influenza Type A ([place]TTE) Negative Influenza Type B ([place]TTE) Negative Influenza A & B Note See Note 11/10/22 11/10/22 16:49 19:35 MCV MCH MCHC RDW Plt Count MPV Immature Gran % (Auto) Neut % (Auto) Lymph % (Auto) [place] % (Auto) Eos % (Auto) Baso % (Auto) Lymph # (Auto) [place] # (Auto) Eos # (Auto) Baso # (Auto) Abs Immat Gran (auto) Absolute Neuts (auto) Absolute Nucleated RBC Nucleated RBC % (auto) VBG pH VBG pCO2 VBG pO2 VBG HCO3 VBG O2 Saturation VBG Base Excess Anion Gap Estim Creat Clear Calc Estimated GFR POC Glucose 557 H* 355 H* Random Glucose Calcium Magnesium Total Bilirubin AST ALT Alkaline Phosphatase Troponin I High Sens Total Protein Albumin Lipase Acetone, Qual COVID-19 (ABDIEL) COVID-19 Clin Com Influenza Type A (COLETTE) Influenza Type B (COLETTE) Influenza A & B Note Imaging Radiologist's Impressions: Impressions Cervical Spine CT 11/10/22 14:56 IMPRESSION: 1. No evidence of acute intracranial hemorrhage or edematous territorial infarction. 2. No evidence of acute fracture or traumatic subluxation of the cervical spine. Mild to moderate multilevel degenerative spondyloarthropathy of the cervical spine. 3. Mildly displaced bilateral nasal bone fractures with moderate soft tissue edema/hematoma along the nasal bridge. 4. Soft tissue laceration along the left aspect of the frontal bone/left supraorbital ridge. No associated osseous calvarial abnormalities. Face CT 11/10/22 14:56 IMPRESSION: 1. No evidence of acute intracranial hemorrhage or edematous territorial infarction. 2. No evidence of acute fracture or traumatic subluxation of the cervical spine. Mild to moderate multilevel degenerative spondyloarthropathy of the cervical spine. 3. Mildly displaced bilateral nasal bone fractures with moderate soft tissue edema/hematoma along the nasal bridge. 4. Soft tissue laceration along the left aspect of the frontal bone/left supraorbital ridge. No associated osseous calvarial abnormalities. Head CT 11/10/22 14:56 IMPRESSION: 1. No evidence of acute intracranial hemorrhage or edematous territorial infarction. 2. No evidence of acute fracture or traumatic subluxation of the cervical spine. Mild to moderate multilevel degenerative spondyloarthropathy of the cervical spine. 3. Mildly displaced bilateral nasal bone fractures with moderate soft tissue edema/hematoma along the nasal bridge. 4. Soft tissue laceration along the left aspect of the frontal bone/left supraorbital ridge. No associated osseous calvarial abnormalities. Assessment and Plan (1) Syncope: Status: Acute (2) Fracture of nasal bone: Status: Acute Plan Pt is a 66-year-old female with a PMH significant for?CAD, asthma, Davis's esophagus, non insulin-dependent DM2, and GERD who presents to the ED after a syncopal episode and fall where she suffered bilateral nasal bone fractures and a left eyebrow laceration. Patient will be admitted to telemetry observation for monitoring and further evaluation for syncopal episode. Syncope Etiology unclear; differential includes vasovagal, cardiac, orthostatic, and medication-induced syncope Admit to telemetry Cardiology consult, followed by Pete Repeat orthostatics tomorrow Nasal bone fracture Ibuprofen for swelling Oxy for pain management Hyperglycemia, DM2 Hold all all home meds ssi Lower right quadrant abdominal tenderness, chronic Patient has had extensive workup for this pain in the past with no diagnosis made Follow-up outpatient with GI Atherosclerotic heart disease of [place] coronary artery without angina pectoris Follow-up outpatient with Dr. Freeman HLD Continue home meds HTN Continue home meds Full Code Attending:?Dr. Alonso DVT Prophylaxis: Lovenox Pt will require a hospitalization of at least one night of observation and ev aluation for syncopal episode.. Time Spent With Patient Time: Total time managing care of this patient today ____ minutes. Quality Stroke Does the patient have a stroke diagnosis?: No VTE Prior VTE?: No VTE Risk Level:: Medical - moderate - high VTE Device Contraindication: Treatment Not Indicated VTE Drug Contraindication: N/A - Med Ordered
--- NOTE | 2022-11-10 22:13 | MHC.EDTECH ---
pt changed over into hospital gown, put on tele monitor and given a warm blanket.
[2022-11-11] VITALS (7 sets, daily range): BP systolic 125–184; BP diastolic 76–98; PULSE 72–92; RESP 12–22; TEMP 36.1–36.8; O2SAT 94–97; BMI 37.4
--- NOTE | 2022-11-11 00:27 | PC.NURSE ---
Assumed care of pt. at 1900. Pt. was in the hallway at that time. Moved pt. into bed 1. Dtr remained at bedside until around 2129. Pt. reporting some pain, medicated with tylenol per JAN. Pt. is now sleeping in bed, no apparent distress noted. Respirations are even and unlabored. Will continue to monitor.
[2022-11-11 00:53] LABS: Appearance Urine Clear; Color Urine Yellow; Glucose Urine UA >=1000 mg/dL (Negative); Leukocyte Esterase Urine Trace (Negative); Nitrite Urine Negative (Negative); PH 6.5 (5.0-9.0); Specific Gravity - Urine >= 1.030 (1.005-1.025); UMIC TRIGGER UACC YES; Urine Blood Trace (Negative); Urine Ketones Negative (Negative); Urine Protein Negative (Neg-Trace)
[2022-11-11 00:55] LABS: Bacteria Urine None Seen (None Seen); Hyaline Casts Urine 0-2 /LPF (0-2); Squamous Epithelial Cell Urine 0-2 /HPF (0-2); WBC Urine 0-5 /HPF (0-5)
[2022-11-11 02:58] LABS: Glucose, Whole Blood 410 mg/dL (60-115)
[2022-11-11] MEDS: Insulin Lispro 100 UNIT/ML 3 ML VIAL 15 UNIT SUBCUT (03:13)
[2022-11-11] MEDS: oxyCODONE HCl Immed Release 5 MG TABLET PO (03:20)
[2022-11-11 05:58] LABS: Glucose, Whole Blood 334 mg/dL (60-115)
[2022-11-11] MEDS: Enoxaparin Sodium 40 MG/0.4 ML SYRINGE SUBCUT (06:02)
[2022-11-11] MEDS: Omeprazole 40 MG CAPSULE.DR PO ×2 (06:02→16:52)
--- NOTE | 2022-11-11 06:26 | PC.NURSE ---
Pt. up in the middle of the night reporting pain at 7/10 in her head. Pt. medicated with oxycodone per JAN. Pt. back to sleep. Pt. given omeprozole and lovenox injection per JAN. Pt. resting in bed at this time.
[2022-11-11 07:25] LABS: Glucose, Whole Blood 360 mg/dL (60-115)
[2022-11-11] MEDS: Insulin Lispro 100 UNIT/ML 3 ML VIAL SUBCUT ×4 (07:51→20:52)
--- NOTE | 2022-11-11 08:36 | HO.PM.IMPN ---
Subjective Subjective Date of Service: 11/12/22 Interval History: f/u on syncope, no arrythma noted Physical Exam Vital Signs: Vital Signs: Last Vital Signs Temp 97.9 F 11/11/22 06:56 Pulse 78 11/11/22 06:56 Resp 14 11/11/22 06:56 BP 149/76 H 11/11/22 06:56 Pulse Ox 94 11/11/22 06:56 O2 Del Method 11/11/22 06:56 BMI result Body Mass Index 37.6 Const: Other: General: AO X 3, no acute distress Resp: CTA bilateral CVS: S1,S2,RRR GI: +BS, NT, no distention Skin: No rash Neuro: motor grossly intact Psych: appropriate affect Objective Data Active Medications Albuterol Sulfate (Albuterol Sulfate (0.083%) 2.5 Mg/3 Ml Vial.Neb) 2.5 mg INHALE Q4H PRN PRN Reason: shortness of breath or wheezing Albuterol Sulfate (Albuterol Sulfate 90 Mcg 8 Gm Inhaler) 2 puff INHALE QID PRN PRN Reason: shortness of breath or wheezing Amitriptyline HCl (Amitriptyline Hcl 50 Mg Tablet) 200 mg PO BEDTIME JACQUES Amlodipine Besylate (Amlodipine Besylate 10 Mg Tablet) 10 mg PO DAILY JACQUES; Protocol Aspirin (Aspirin Enteric Coated 81 Mg Tablet.Dr) 81 mg PO DAILY JACQUES Atorvastatin Calcium (Atorvastatin Calcium 80 Mg Tablet) 80 mg PO BEDTIME JACQUES Celecoxib (Celecoxib 200 Mg Capsule) 200 mg PO DAILY JACQUES Clonazepam (Clonazepam 1 Mg Tablet) 1 mg PO BID PRN PRN Reason: Anxiety Cyanocobalamin (Cyanocobalamin (Vitamin B-12) 1,000 Mcg Tablet) 1,000 mcg PO DAILY COUNT INCLUDES THE [facility] Dextrose (Dextrose 50 % 25 Gm/50 Ml Syringe) 25 gm IVPUSH Q15M PRN; Protocol PRN Reason: per Hypoglycemia Standing Ord. Ezetimibe (Ezetimibe 10 Mg Tablet) 10 mg PO DAILY COUNT INCLUDES THE [facility] Enoxaparin Sodium (Enoxaparin Sodium 40 Mg/0.4 Ml Syringe) 40 mg SUBCUT Q24H COUNT INCLUDES THE [facility] Last Admin: 11/11/22 06:02 Dose: 40 mg Documented By: ANGY Epinephrine (Epinephrine 1 Mg/Ml Vial) 0.3 mg IM Q20M PRN PRN Reason: Anaphylaxis Fluticasone/Vilanterol (Fluticasone/Vilanterol 100/25 Blst.W.Dev) 1 puff INHALE DAILY COUNT INCLUDES THE [facility] Last Admin: 11/11/22 07:51 Dose: Not Given Documented By: ARLYN Non-Admin Reason: Med Not Available Glucose (Glucose Gel 15 Gm Gel..Gram.) 15 gm PO Q15M PRN; Protocol PRN Reason: per Hypoglycemia Standing Ord. Ibuprofen (Ibuprofen 400 Mg Tablet) 400 mg PO Q6H PRN PRN Reason: Fever or Pain, Mild (Pain Scale 1-3) Insulin Human Lispro (Insulin Lispro 100 Unit/Ml 3 Ml Vial) 0 unit SUBCUT QIDACHS COUNT INCLUDES THE [facility]; Protocol Last Admin: 11/11/22 07:51 Dose: 10 unit Documented By: JACKY Loratadine (Loratadine 10 Mg Tablet) 10 mg PO BEDTIME COUNT INCLUDES THE [facility] Metoclopramide HCl (Metoclopramide Hcl 5 Mg Tablet) 5 mg PO TID COUNT INCLUDES THE [facility] Metoprolol Succinate (Metoprolol Succinate Er 25 Mg Tab.Er.24h) 25 mg PO DAILY COUNT INCLUDES THE [facility]; Protocol Mirtazapine (Mirtazapine 15 Mg Tablet) 45 mg PO BEDTIME COUNT INCLUDES THE [facility] Nitroglycerin (Nitroglycerin 0.4 Mg Tab.Subl) 0.4 mg SUBLINGUAL Q5M PRN PRN Reason: Chest Pain Omeprazole (Omeprazole 40 Mg Capsule.Dr) 40 mg PO BID@0630,1630 COUNT INCLUDES THE [facility] Last Admin: 11/11/22 06:02 Dose: 40 mg Documented By: ANGY Oxycodone HCl (Oxycodone Hcl Immed Release 5 Mg Tablet) 5 mg PO Q4H PRN PRN Reason: Pain, Severe (Pain Scale 7-10) Last Admin: 11/11/22 03:20 Dose: 5 mg Documented By: ANGY Pharmacy Consult (Consult Rx Perform Med Rec) 1 each MISCELLANE ONCE PRN PRN Reason: Consult order Pregabalin (Pregabalin 200 Mg Capsule) 200 mg PO BID COUNT INCLUDES THE [facility] Sodium Chloride (0.9 % Sodium Chloride Flush 3 Ml Syringe) 3 ml IVFLUSH QSHIFT COUNT INCLUDES THE [facility] Last Admin: 11/11/22 04:20 Dose: Not Given Documented By: ANGY Non-Admin Reason: Previously Administered Sucralfate (Sucralfate 1 Gm Tablet) 2 gm PO DAILY COUNT INCLUDES THE [facility] Topiramate (Topiramate 100 Mg Tablet) 100 mg PO BID COUNT INCLUDES THE [facility] Trazodone HCl (Trazodone Hcl 100 Mg Tablet) 100 mg PO BEDTIME COUNT INCLUDES THE [facility] Venlafaxine HCl (Venlafaxine Hcl Er 37.5 Mg Cap.Er.24h) 37.5 mg PO DAILY COUNT INCLUDES THE [facility] Vitamin D (Cholecalciferol (Vitamin D3) 25 Mcg Tablet) 50 mcg PO DAILY COUNT INCLUDES THE [facility] Labs CBC & Chem 7: 11/10/22 13:53 11/10/22 13:53 Labs: Laboratory Results - last 24 hr 11/10/22 11/10/22 11/10/22 13:53 13:53 13:53 MCV 81.6 MCH 25.9 L MCHC 31.8 RDW 13.5 Plt Count 198 MPV 10.5 Immature Gran % (Auto) 0.2 Neut % (Auto) 72.5 Lymph % (Auto) 20.3 [place] % (Auto) 4.0 Eos % (Auto) 2.5 Baso % (Auto) 0.5 Lymph # (Auto) 1.9 [place] # (Auto) 0.4 Eos # (Auto) 0.2 Baso # (Auto) 0.1 Abs Immat Gran (auto) 0.02 Absolute Neuts (auto) 6.6 Absolute Nucleated RBC 0.000 Nucleated RBC % (auto) 0.0 VBG pH VBG pCO2 VBG pO2 VBG HCO3 VBG O2 Saturation VBG Base Excess Anion Gap 16 Estim Creat Clear Calc 54.3 Estimated GFR 45 POC Glucose Random Glucose 779 H* D Calcium 9.6 D Magnesium 1.8 Total Bilirubin 0.6 AST 29 ALT 35 H Alkaline Phosphatase 144 H Troponin I High Sens Total Protein 7.6 Albumin 4.1 Lipase 19 Urine Color Urine Appearance Urine pH Ur Specific Benedict Urine Protein Urine Glucose (UA) Urine Ketones Urine Blood Urine Nitrite Ur Leukocyte Esterase Urine RBC Urine WBC Ur Squamous Epith Cells Urine Bacteria Hyaline Casts Acetone, Qual Negative COVID-19 (ABDIEL) Negative COVID-19 Clin Com See Note Influenza Type A ([facility]TT[place]) Influenza Type B ([place]) Influenza A & B Note 11/10/22 11/10/22 11/10/22 13:53 13:53 14:10 MCV MCH MCHC RDW Plt Count MPV Immature Gran % (Auto) Neut % (Auto) Lymph % (Auto) [place] % (Auto) Eos % (Auto) Baso % (Auto) Lymph # (Auto) [place] # (Auto) Eos # (Auto) Baso # (Auto) Abs Immat Gran (auto) Absolute Neuts (auto) Absolute Nucleated RBC Nucleated RBC % (auto) VBG pH 7.33 VBG pCO2 38 VBG pO2 60 VBG HCO3 20 L VBG O2 Saturation 86.0 VBG Base Excess -4.6 Anion Gap Estim Creat Clear Calc Estimated GFR POC Glucose Random Glucose Calcium Magnesium Total Bilirubin AST ALT Alkaline Phosphatase Troponin I High Sens 5.0 Total Protein Albumin Lipase Urine Color Urine Appearance Urine pH Ur Specific [place] Urine Protein Urine Glucose (UA) Urine Ketones Urine Blood Urine Nitrite Ur Leukocyte Esterase Urine RBC Urine WBC Ur Squamous Epith Cells Urine Bacteria Hyaline Casts Acetone, Qual COVID-19 (ABDIEL) COVID-19 Clin Com Influenza Type A ([place]) Negative Influenza Type B ([place]) Negative Influenza A & B Note See Note 11/10/22 11/10/22 11/11/22 16:49 19:35 00:41 MCV MCH MCHC RDW Plt Count MPV Immature Gran % (Auto) Neut % (Auto) Lymph % (Auto) [place] % (Auto) Eos % (Auto) Baso % (Auto) Lymph # (Auto) [place] # (Auto) Eos # (Auto) Baso # (Auto) Abs Immat Gran (auto) Absolute Neuts (auto) Absolute Nucleated RBC Nucleated RBC % (auto) VBG pH VBG pCO2 VBG pO2 VBG HCO3 VBG O2 Saturation VBG Base Excess Anion Gap Estim Creat Clear Calc Estimated GFR POC Glucose 557 H* 355 H* Random Glucose Calcium Magnesium Total Bilirubin AST ALT Alkaline Phosphatase Troponin I High Sens Total Protein Albumin Lipase Urine Color Yellow Urine Appearance Clear Urine pH 6.5 Ur Specific Benedict >= 1.030 H Urine Protein Negative Urine Glucose (UA) >=1000 H Urine Ketones Negative Urine Blood Trace H Urine Nitrite Negative Ur Leukocyte Esterase Trace H Urine RBC 3-5 H Urine WBC 0-5 Ur Squamous Epith Cells 0-2 Urine Bacteria None Seen Hyaline Casts 0-2 Acetone, Qual COVID-19 (ABDIEL) COVID-19 Clin Com Influenza Type A ([place]) Influenza Type B ([place]) Influenza A & B Note 11/11/22 11/11/22 11/11/22 02:53 05:53 07:17 MCV MCH MCHC RDW Plt Count MPV Immature Gran % (Auto) Neut % (Auto) Lymph % (Auto) [place] % (Auto) Eos % (Auto) Baso % (Auto) Lymph # (Auto) [place] # (Auto) Eos # (Auto) Baso # (Auto) Abs Immat Gran (auto) Absolute Neuts (auto) Absolute Nucleated RBC Nucleated RBC % (auto) VBG pH VBG pCO2 VBG pO2 VBG HCO3 VBG O2 Saturation VBG Base Excess Anion Gap Estim Creat Clear Calc Estimated GFR POC Glucose 410 H* 334 H 360 H* Random Glucose Calcium Magnesium Total Bilirubin AST ALT Alkaline Phosphatase Troponin I High Sens Total Protein Albumin Lipase Urine Color Urine Appearance Urine pH Ur Specific Benedict Urine Protein Urine Glucose (UA) Urine Ketones Urine Blood Urine Nitrite Ur Leukocyte Esterase Urine RBC Urine WBC Ur Squamous Epith Cells Urine Bacteria Hyaline Casts Acetone, Qual COVID-19 (ABDIEL) COVID-19 Clin Com Influenza Type A ([place]) Influenza Type B ([place]) Influenza A & B Note Assessment and Plan (1) Fracture of nasal bone: Status: Acute (2) Syncope: Status: Acute Plan Pt is a 66-year-old female with a PMH significant for?CAD, asthma, Davis's esophagus, non insulin-dependent DM2, and GERD who presents to the ED after a syncopal episode and fall where she suffered bilateral nasal bone fractures and a left eyebrow laceration.? Syncope Etiology unclear; differential includes vasovagal, cardiac arrythmia, orthostatic, hyperglycemia (800) -check orthostatic BP -cardiac monitoring -echo -cardiology input Nasal bone fracture Ibuprofen for swelling Oxy for pain management Hyperglycemia, DM2 Hold all all home meds ssi Lower right quadrant abdominal tenderness, chronic Patient has had extensive workup for this pain in the past with no diagnosis made Follow-up outpatient with GI Atherosclerotic heart disease of [place] coronary artery without angina pectoris Follow-up outpatient with Dr. Pete CORONADO Continue home meds HTN Continue home meds Full Code Attending:?Dr. Alonso DVT Prophylaxis: Lovenox obs pt Time Spent With Patient Time: Total time managing care of this patient today __37__ minutes. Quality Stroke Does the patient have a stroke diagnosis?: No VTE Prior VTE?: No VTE Risk Level:: Medical - moderate - high VTE Device Contraindication: Treatment Not Indicated VTE Drug Contraindication: N/A - Med Ordered
--- NOTE | 2022-11-11 10:15 | PM.CNCAR ---
History of Present Illness History of Present Illness Date of Service: 11/11/22 Chief complaint: syncope Narrative: This is a cardiology consultation regarding syncope. Patient has known coronary disease. Multiple cardiovascular risk factors including diabetes obesity and she is being followed in our clinic. Discussed with patient using charge authorizer. She apparently was leaving her daughter's home and she opened the door and it seems that she passed out. Probably some dizziness prior to that but difficult to be very sure. She does get occasional dizziness but she states she has never really passed out in the past. Otherwise, no chest pain or any other symptoms. She does have some facial injury secondary to the fall. Review of Systems Review of Systems: Yes all other systems are reviewed and are negative Constitutional: Constitutional: Reports as per HPI Eyes: Eyes: Reports as per HPI ENT: Reports as per HPI Cardiovascular: Cardiovascular: Reports as per HPI, Denies acrocyanosis, Denies cool extremities, Denies chest pain, Denies leg edema, Reports lightheadedness, Reports Loss of Consciousness, Denies palpitations and Denies dyspnea Respiratory: Respiratory: Reports as per HPI, Reports no additional respiratory complaints and Denies dyspnea Gastrointestinal: Gastrointestinal: Reports as per HPI and Reports no additional gastrointestinal complaints Genitourinary: Genitourinary: Reports as per HPI Musculoskeletal: Musculoskeletal: Reports no additional musculoskeletal complaints and Reports as per HPI Integumentary/Breasts: Skin/Breast: Reports system reviewed and no additional complaints, except as docu Neurologic: Reports system reviewed and no additional complaints, except as documented and Reports as per HPI Psychiatric: Psychiatric: Reports no additional psychiatric complaints and Reports as per HPI Endocrine: Endocrine: Reports no additional endocrine complaints, Reports as per HPI and Denies palpitations Hematologic/Lymphatic: Hematologic/Lymphatic: Reports no additional hematologic/lymphatic complaints and Reports as per HPI Allergic/Immunologic: Allergic/Immunologic: Reports no additional allergic/immunologic complaints and Reports as per HPI PMF Past Medical History Medical History Asthma Atherosclerotic cardiovascular disease Chronic allergic rhinitis Chronic restrictive lung disease Essential hypertension EDWIN on CPAP Other and unspecified hyperlipidemia Type 2 diabetes mellitus with unspecified complications Family History Family History Mother HTN (hypertension) Heart disease Asthma Maternal Aunt Breast cancer Maternal Aunt Tumor Maternal Aunt Cancer Surgical History Surgical History History of esophagogastroduodenoscopy (EGD) Hx of colonoscopy Social History Social History Household Members Other:: 4 household members Alcohol intake: unknown Patient Tobacco Use Status: Never used Tobacco Smoked in Last 30 Days: No Use of substances other than those prescribed or required for medical reasons: No Advance Directives: No Advance Directives Information Provided: No Meds Allergies Allergy/AdvReac Type Severity Reaction Status Date / Time bee pollen [BEE STINGS] Allergy Unknown ANAPHYLAXIS Verified 10/28/22 14:46 morphine [MORPHINE] Allergy Unknown ITCHING Verified 10/28/22 14:46 Active Medications: Current Medications Albuterol Sulfate (Albuterol Sulfate (0.083%) 2.5 Mg/3 Ml Vial.Neb) 2.5 mg INHALE Q4H PRN PRN Reason: shortness of breath or wheezing Albuterol Sulfate (Albuterol Sulfate 90 Mcg 8 Gm Inhaler) 2 puff INHALE QID PRN PRN Reason: shortness of breath or wheezing Amitriptyline HCl (Amitriptyline Hcl 50 Mg Tablet) 200 mg PO BEDTIME JACQUES Amlodipine Besylate (Amlodipine Besylate 10 Mg Tablet) 10 mg PO DAILY JACQUES; Protocol Aspirin (Aspirin Enteric Coated 81 Mg Tablet.Dr) 81 mg PO DAILY [facility] Atorvastatin Calcium (Atorvastatin Calcium 80 Mg Tablet) 80 mg PO BEDTIME JACQUES Celecoxib (Celecoxib 200 Mg Capsule) 200 mg PO DAILY [facility] Clonazepam (Clonazepam 1 Mg Tablet) 1 mg PO BID PRN PRN Reason: Anxiety Cyanocobalamin (Cyanocobalamin (Vitamin B-12) 1,000 Mcg Tablet) 1,000 mcg PO DAILY [facility] Dextrose (Dextrose 50 % 25 Gm/50 Ml Syringe) 25 gm IVPUSH Q15M PRN; Protocol PRN Reason: per Hypoglycemia Standing Ord. Ezetimibe (Ezetimibe 10 Mg Tablet) 10 mg PO DAILY [facility] Enoxaparin Sodium (Enoxaparin Sodium 40 Mg/0.4 Ml Syringe) 40 mg SUBCUT Q24H [facility] Last Admin: 11/11/22 06:02 Dose: 40 mg Epinephrine (Epinephrine 1 Mg/Ml Vial) 0.3 mg IM Q20M PRN PRN Reason: Anaphylaxis Fluticasone/Vilanterol (Fluticasone/Vilanterol 100/25 Blst.W.Dev) 1 puff INHALE DAILY [facility] Last Admin: 11/11/22 07:51 Dose: Not Given Glucose (Glucose Gel 15 Gm Gel..Gram.) 15 gm PO Q15M PRN; Protocol PRN Reason: per Hypoglycemia Standing Ord. Ibuprofen (Ibuprofen 400 Mg Tablet) 400 mg PO Q6H PRN PRN Reason: Fever or Pain, Mild (Pain Scale 1-3) Insulin Human Lispro (Insulin Lispro 100 Unit/Ml 3 Ml Vial) 0 unit SUBCUT QIDACHS [facility]; Protocol Last Admin: 11/11/22 07:51 Dose: 10 unit Loratadine (Loratadine 10 Mg Tablet) 10 mg PO BEDTIME [facility] Metoclopramide HCl (Metoclopramide Hcl 5 Mg Tablet) 5 mg PO TID [facility] Metoprolol Succinate (Metoprolol Succinate Er 25 Mg Tab.Er.24h) 25 mg PO DAILY [facility]; Protocol Mirtazapine (Mirtazapine 15 Mg Tablet) 45 mg PO BEDTIME [facility] Nitroglycerin (Nitroglycerin 0.4 Mg Tab.Subl) 0.4 mg SUBLINGUAL Q5M PRN PRN Reason: Chest Pain Omeprazole (Omeprazole 40 Mg Capsule.Dr) 40 mg PO BID@0630,1630 [facility] Last Admin: 11/11/22 06:02 Dose: 40 mg Oxycodone HCl (Oxycodone Hcl Immed Release 5 Mg Tablet) 5 mg PO Q4H PRN PRN Reason: Pain, Severe (Pain Scale 7-10) Last Admin: 11/11/22 03:20 Dose: 5 mg Pharmacy Consult (Consult Rx Perform Med Rec) 1 each MISCELLANE ONCE PRN PRN Reason: Consult order Pregabalin (Pregabalin 200 Mg Capsule) 200 mg PO BID [facility] Sodium Chloride (0.9 % Sodium Chloride Flush 3 Ml Syringe) 3 ml IVFLUSH QSHIFT [facility] Last Admin: 11/11/22 04:20 Dose: Not Given Sucralfate (Sucralfate 1 Gm Tablet) 2 gm PO DAILY [facility] Topiramate (Topiramate 100 Mg Tablet) 100 mg PO BID [facility] Trazodone HCl (Trazodone Hcl 100 Mg Tablet) 100 mg PO BEDTIME [facility] Venlafaxine HCl (Venlafaxine Hcl Er 37.5 Mg Cap.Er.24h) 37.5 mg PO DAILY [facility] Vitamin D (Cholecalciferol (Vitamin D3) 25 Mcg Tablet) 50 mcg PO DAILY [facility] Home Medications Medication Instructions Recorded Confirmed Last Taken Type amitriptyline 100 mg tablet 200 mg PO BEDTIME 10/29/20 11/10/22 Unknown History aspirin 81 mg tablet,delayed 81 mg PO DAILY 10/29/20 11/10/22 Unknown History release vpzegxvprv-zulojcdfvhllc-dhswsbbl 1 tab PO TID PRN Pain 10/29/20 11/10/22 Unknown History 50 mg-325 mg-40 mg tablet cholecalciferol (vitamin D3) 50 50 mcg PO DAILY 10/29/20 11/10/22 Unknown History mcg (2,000 unit) capsule cyanocobalamin (vitamin B-12) 1,000 mcg PO DAILY 10/29/20 11/10/22 Unknown History 1,000 mcg tablet mirtazapine 45 mg tablet 45 mg PO BEDTIME 10/29/20 11/10/22 Unknown History trazodone 100 mg tablet 100 mg PO BEDTIME 10/29/20 11/10/22 Unknown History topiramate 100 mg tablet 100 mg PO BID 07/16/21 11/10/22 Unknown History epinephrine 0.3 mg/0.3 mL 3 mg IM DIRECTED anaphylaxis 01/30/22 11/10/22 Unknown History injection, auto-injector celecoxib 200 mg capsule 200 mg PO DAILY 05/05/22 11/10/22 Unknown History cetirizine 10 mg tablet 10 mg PO BEDTIME 05/05/22 11/10/22 Unknown History lancets 33 gauge (TRUEplus Lancets) #100 ea 08/12/22 11/11/22 Unknown History venlafaxine 37.5 mg 37.5 mg PO DAILY 08/12/22 11/10/22 Unknown History capsule,extended release 24 hr clonazepam 1 mg tablet 1 mg PO BID PRN Anxiety 10/28/22 11/10/22 Unknown History metformin 500 mg tablet,extended 1,000 mg PO QAM 10/28/22 11/10/22 Unknown History release 24 hr dulaglutide 1.5 mg/0.5 mL 1.5 mg subcut QWEEK 11/10/22 11/10/22 Unknown History subcutaneous pen injector (Trulicity) pregabalin 200 mg capsule 1 cap PO BID 11/10/22 11/10/22 Unknown History simethicone 180 mg capsule 180 mg PO QID PRN Abdominal Pain 11/10/22 11/10/22 Unknown History Physical Exam Vital Signs: Vital Signs: Last Vital Signs Temp 97.9 F 11/11/22 06:56 Pulse 78 11/11/22 06:56 Resp 14 11/11/22 06:56 BP 149/76 H 11/11/22 06:56 Pulse Ox 94 11/11/22 06:56 O2 Del Method 11/11/22 06:56 BMI result Body Mass Index 37.6 Const: General: comfortable and no acute distress Orientation/consciousness: patient oriented x3 HEENT: Other: Swollen nose. Head: Yes normal to inspection Eyes: Other: Bruising below the eyes Neck: Neck: Yes normal visual inspection Chest: Chest palpation & inspection: normal inspection of the chest Resp: Auscultation: clear to auscultation bilaterally Cardio: Palpation: normal PMI Heart sounds: S1 normal heart sound present, S2 normal heart sound present, no gallops, no murmurs and no rubs GI: Palpation (GI): Soft to palpation Back/Spine/Pelvis: Other: unremarkable Skin: General skin exam: no rashes or lesions noted Neuro: General: patient oriented x3 Extrem: General: Yes normal to inspection Psych: Mental Status: mental status grossly normal Objective Labs and Meds Result diagrams: 11/10/22 13:53 11/10/22 13:53 Lab results: Laboratory Results - last 24 hr 11/10/22 11/10/22 11/10/22 13:53 13:53 13:53 WBC 9.2 RBC 5.05 Hgb 13.1 Hct 41.2 MCV 81.6 MCH 25.9 L MCHC 31.8 RDW 13.5 Plt Count 198 MPV 10.5 Immature Gran % (Auto) 0.2 Neut % (Auto) 72.5 Lymph % (Auto) 20.3 Saunders % (Auto) 4.0 Eos % (Auto) 2.5 Baso % (Auto) 0.5 Lymph # (Auto) 1.9 Saunders # (Auto) 0.4 Eos # (Auto) 0.2 Baso # (Auto) 0.1 Abs Immat Gran (auto) 0.02 Absolute Neuts (auto) 6.6 Absolute Nucleated RBC 0.000 Nucleated RBC % (auto) 0.0 VBG pH VBG pCO2 VBG pO2 VBG HCO3 VBG O2 Saturation VBG Base Excess Sodium 135 Potassium 4.0 Chloride 100 Carbon Dioxide 23 Anion Gap 16 BUN 11 Creatinine 1.21 Estim Creat Clear Calc 54.3 Estimated GFR 45 POC Glucose Random Glucose 779 H* D Calcium 9.6 D Magnesium 1.8 Total Bilirubin 0.6 AST 29 ALT 35 H Alkaline Phosphatase 144 H Troponin I High Sens Total Protein 7.6 Albumin 4.1 Lipase 19 Urine Color Urine Appearance Urine pH Ur Specific Dalton Urine Protein Urine Glucose (UA) Urine Ketones Urine Blood Urine Nitrite Ur Leukocyte Esterase Urine RBC Urine WBC Ur Squamous Epith Cells Urine Bacteria Hyaline Casts Acetone, Qual Negative COVID-19 (ABDIEL) Negative COVID-19 Clin Com See Note Influenza Type A (COLETTE) Influenza Type B (COLETTE) Influenza A & B Note 11/10/22 11/10/22 11/10/22 13:53 13:53 14:10 WBC RBC Hgb Hct MCV MCH MCHC RDW Plt Count MPV Immature Gran % (Auto) Neut % (Auto) Lymph % (Auto) Saunders % (Auto) Eos % (Auto) Baso % (Auto) Lymph # (Auto) Saunders # (Auto) Eos # (Auto) Baso # (Auto) Abs Immat Gran (auto) Absolute Neuts (auto) Absolute Nucleated RBC Nucleated RBC % (auto) VBG pH 7.33 VBG pCO2 38 VBG pO2 60 VBG HCO3 20 L VBG O2 Saturation 86.0 VBG Base Excess -4.6 Sodium Potassium Chloride Carbon Dioxide Anion Gap BUN Creatinine Estim Creat Clear Calc Estimated GFR POC Glucose Random Glucose Calcium Magnesium Total Bilirubin AST ALT Alkaline Phosphatase Troponin I High Sens 5.0 Total Protein Albumin Lipase Urine Color Urine Appearance Urine pH Ur Specific Dalton Urine Protein Urine Glucose (UA) Urine Ketones Urine Blood Urine Nitrite Ur Leukocyte Esterase Urine RBC Urine WBC Ur Squamous Epith Cells Urine Bacteria Hyaline Casts Acetone, Qual COVID-19 (ABDIEL) COVID-19 Clin Com Influenza Type A (COLETTE) Negative Influenza Type B (COLETTE) Negative Influenza A & B Note See Note 11/10/22 11/10/22 11/11/22 16:49 19:35 00:41 WBC RBC Hgb Hct MCV MCH MCHC RDW Plt Count MPV Immature Gran % (Auto) Neut % (Auto) Lymph % (Auto) Saunders % (Auto) Eos % (Auto) Baso % (Auto) Lymph # (Auto) Saunders # (Auto) Eos # (Auto) Baso # (Auto) Abs Immat Gran (auto) Absolute Neuts (auto) Absolute Nucleated RBC Nucleated RBC % (auto) VBG pH VBG pCO2 VBG pO2 VBG HCO3 VBG O2 Saturation VBG Base Excess Sodium Potassium Chloride Carbon Dioxide Anion Gap BUN Creatinine Estim Creat Clear Calc Estimated GFR POC Glucose 557 H* 355 H* Random Glucose Calcium Magnesium Total Bilirubin AST ALT Alkaline Phosphatase Troponin I High Sens Total Protein Albumin Lipase Urine Color Yellow Urine Appearance Clear Urine pH 6.5 Ur Specific Dalton >= 1.030 H Urine Protein Negative Urine Glucose (UA) >=1000 H Urine Ketones Negative Urine Blood Trace H Urine Nitrite Negative Ur Leukocyte Esterase Trace H Urine RBC 3-5 H Urine WBC 0-5 Ur Squamous Epith Cells 0-2 Urine Bacteria None Seen Hyaline Casts 0-2 Acetone, Qual COVID-19 (ABDIEL) COVID-19 Clin Com Influenza Type A (COLETTE) Influenza Type B (COLETTE) Influenza A & B Note 11/11/22 11/11/22 11/11/22 02:53 05:53 07:17 WBC RBC Hgb Hct MCV MCH MCHC RDW Plt Count MPV Immature Gran % (Auto) Neut % (Auto) Lymph % (Auto) Saunders % (Auto) Eos % (Auto) Baso % (Auto) Lymph # (Auto) Saunders # (Auto) Eos # (Auto) Baso # (Auto) Abs Immat Gran (auto) Absolute Neuts (auto) Absolute Nucleated RBC Nucleated RBC % (auto) VBG pH VBG pCO2 VBG pO2 VBG HCO3 VBG O2 Saturation VBG Base Excess Sodium Potassium Chloride Carbon Dioxide Anion Gap BUN Creatinine Estim Creat Clear Calc Estimated GFR POC Glucose 410 H* 334 H 360 H* Random Glucose Calcium Magnesium Total Bilirubin AST ALT Alkaline Phosphatase Troponin I High Sens Total Protein Albumin Lipase Urine Color Urine Appearance Urine pH Ur Specific Dalton Urine Protein Urine Glucose (UA) Urine Ketones Urine Blood Urine Nitrite Ur Leukocyte Esterase Urine RBC Urine WBC Ur Squamous Epith Cells Urine Bacteria Hyaline Casts Acetone, Qual COVID-19 (ABDEIL) COVID-19 Clin Com Influenza Type A (COLETTE) Influenza Type B (COLETTE) Influenza A & B Note ECG Interpretation: EKG with sinus rhythm at 85/Min; right bundle-branch block pattern. Similar to prior EKG. Imaging Radiologist's impression: Impressions Cervical Spine CT 11/10/22 14:56 IMPRESSION: 1. No evidence of acute intracranial hemorrhage or edematous territorial infarction. 2. No evidence of acute fracture or traumatic subluxation of the cervical spine. Mild to moderate multilevel degenerative spondyloarthropathy of the cervical spine. 3. Mildly displaced bilateral nasal bone fractures with moderate soft tissue edema/hematoma along the nasal bridge. 4. Soft tissue laceration along the left aspect of the frontal bone/left supraorbital ridge. No associated osseous calvarial abnormalities. Face CT 11/10/22 14:56 IMPRESSION: 1. No evidence of acute intracranial hemorrhage or edematous territorial infarction. 2. No evidence of acute fracture or traumatic subluxation of the cervical spine. Mild to moderate multilevel degenerative spondyloarthropathy of the cervical spine. 3. Mildly displaced bilateral nasal bone fractures with moderate soft tissue edema/hematoma along the nasal bridge. 4. Soft tissue laceration along the left aspect of the frontal bone/left supraorbital ridge. No associated osseous calvarial abnormalities. Head CT 11/10/22 14:56 IMPRESSION: 1. No evidence of acute intracranial hemorrhage or edematous territorial infarction. 2. No evidence of acute fracture or traumatic subluxation of the cervical spine. Mild to moderate multilevel degenerative spondyloarthropathy of the cervical spine. 3. Mildly displaced bilateral nasal bone fractures with moderate soft tissue edema/hematoma along the nasal bridge. 4. Soft tissue laceration along the left aspect of the frontal bone/left supraorbital ridge. No associated osseous calvarial abnormalities. Assessment and Plan (1) Syncope: Status: Acute (2) Fracture of nasal bone: Status: Acute (3) Atherosclerotic cardiovascular disease: Status: Acute Plan Etiology for the syncopal episode not clear. Blood pressure seems to be on the higher side than low. Orthostatic checked in the ER not suggestive of this being the etiology. No clear evidence of any heart blocks at this time. Can continue to monitor for today. Based on troponins, no evidence of ACS. Of note, her blood sugar was 779 when she came in and not clear if that led to the syncopal episode. Blood pressures are still high at 360. This will need to be optimally controlled. Discussed with Dr. Mac. Time Spent With Patient Time: Total time managing care of this patient today 45 minutes. Procedures Date of Service Date of Service: 11/11/22
--- NOTE | 2022-11-11 10:24 | CA_ITS ---
Transthoracic Echocardiogram Patient (Last, First, Middle): Naa Pedersen E Gender: Female Date of : 1955 Age: 66 Procedure Date: 11/11/2022 Procedure Type: Transthoracic [place] [facility] [place]: 165.1 cm Weight: 102.51 kg BSA: 2.08 m2 Heart Rate: bpm BP: 149 / 76 mmHg Culinary Assistant: Referring MD: Dileep Freeman MD Symptoms: syncope Study Quality: Adequate ECG Rhythm: Sinus Conclusions: - The left ventricular systolic function is normal. The calculated ejection fraction is 62% by biplane method. - The basal inferior segment is hypokinetic. - No obvious valvular pathology seen on this study. Findings Left Ventricle Normal left ventricular cavity size. There is mildly increased left ventricular wall thickness. The left ventricular systolic function is normal. The calculated ejection fraction is 62% by biplane method. Diastolic function is normal for age. Wall Motion Rest Echo Findings The basal inferior segment is hypokinetic. Right Ventricle Normal right ventricular cavity size and systolic function. Atria Both atria are normal in size. Aortic Valve The aortic valve was not well visualized. There is no aortic valve stenosis. There is no aortic valve regurgitation. Mitral Valve The mitral valve appears normal. There is no mitral valve regurgitation. There is no mitral valve stenosis. Pulmonic Valve The pulmonic valve was not well visualized. Tricuspid Valve Normal tricuspid valve structure. There is trace tricuspid valve regurgitation. There is no evidence of pulmonary hypertension. Great Vessels The asc aorta is normal in size. Venous The inferior vena cava is normal in size and collapses greater than 50% with inspiration. Pericardium/Pleural There is no evidence of pericardial effusion. Prior Study Comparison Changes noted compared to prior study dated: 03/03/2019. See comment on wall motion. Recommendations, Care & Conclusions No obvious valvular pathology seen on this study. Measurements 2D Linear Measurements IVSd: 1.20 0.6-0.9/0.6-1.0 cm LVIDd: 4.25 3.9-5.3/4.2-5.9 cm LVIDd Index: 2.04 2.4-3.2/2.2-3.1 cm/m2 LVIDs: 2.73 2.0-3.6 cm LVPWd: 1.27 0.7-1.1 cm Ao Root: 3.10 2.1-3.5 cm LA Diam: 4.00 2.7-3.8/3.0-4.0 cm LAIDs Index: 1.92 1.5-2.3 cm/m2 LV Mass: 235.77 67-162/88-224 g LV Mass Index: 113.35 43-95/49-115 g/m2 LVOT Diam: 2.10 3.0+(-)1.3 cm 2D Systolic Function EF 4C: 62.20 >55% EF 2C: 60.80 >55% EF BiP: 61.80 >55% Mitral Valve MV Pk E: 0.62 MV PK A: 0.89 MV Decel Time: 203.00 E/A: 0.70 E'Lateral: 10.70 E'Medial: 4.68 E/E' Med: 13.20 E/E' Lat: 5.80 PHT: 60.00 MVA PHT: 3.67 Decel Coosa: 3.03 Aortic Valve AoV Pk Marco A: 1.66 AoV Mn Marco A: 1.18 AoV VTI: 0.34 AoV Pk Grad: 11.00 Aov Mn Grad: 6.00 CHAY Cont.VTI: 1.95 LVOT LVOT Pk Marco A: 0.86 LVOT Mn Marco A: 0.56 LVOT VTI: 0.19 LVOT Pk Grad: 3.00 LVOT Mn Grad: 2.00 LVOT Diam: 2.10 LVOT Area: 3.46 Diastolic Function MV Pk E: 0.62 MV Pk A: 0.89 E/A: 0.70 E'Medial: 4.68 E/E' Med: 13.20 E' Laterial: 10.70 E/E' Lat: 5.80 Right Ventricle TAPSE (mm): 20.00 TVS' Marco A: 8.00 Tricuspid Valve TR Pk Marco A: 2.34 TR Pk Grad: 22.00 RA Press: 3.00 RVSP: 25.00 Great Vessels Aorta Ao Root-2D: 3.10 2.0-3.7 cm Ao Asc: 3.00 2.1-3.4 cm Pulmonary Valve PV Pk Marco A: 1.03 Peak PV Grad: 4.00 Updated in Other Vendor System with Status of Final Dileep Freeman MD electronically signed on 11/11/2022 1:21:28 PM with status of Final
[2022-11-11] MEDS: Pregabalin 200 MG CAPSULE PO ×2 (10:56→21:00)
[2022-11-11] MEDS: Sucralfate 1 GM TABLET 2 GM PO (10:56)
[2022-11-11] MEDS: amLODIPine Besylate 10 MG TABLET PO (10:57)
[2022-11-11] MEDS: Aspirin Enteric Coated 81 MG TABLET.DR PO (10:57)
[2022-11-11] MEDS: Cholecalciferol (Vitamin D3) 25 MCG TABLET 50 MCG PO (10:57)
[2022-11-11] MEDS: Ezetimibe 10 MG TABLET PO (10:57)
[2022-11-11] MEDS: Cyanocobalamin (Vitamin B-12) 1,000 MCG TABLET 1000 MCG PO (10:58)
[2022-11-11] MEDS: Metoprolol Succinate ER 25 MG TAB.ER.24H PO (10:58)
[2022-11-11] MEDS: 0.9 % Sodium Chloride Flush 3 ML SYRINGE IVFLUSH ×2 (10:59→16:53)
--- NOTE | 2022-11-11 12:17 | MHC.CM.PN ---
met with pt who is independent,she has her own ride home is becky quirozx x [address] lives with her and beatrizdgter
[2022-11-11 12:42] LABS: Glucose, Whole Blood 326 mg/dL (60-115)
[2022-11-11 16:27] LABS: Glucose, Whole Blood 389 mg/dL (60-115)
[2022-11-11] MEDS: Ibuprofen 400 MG TABLET PO (16:52)
[2022-11-11] MEDS: Metoclopramide HCl 5 MG TABLET PO ×2 (16:52→20:54)
[2022-11-11 20:47] LABS: Glucose, Whole Blood 390 mg/dL (60-115)
[2022-11-11] MEDS: Amitriptyline HCl 50 MG TABLET 200 MG PO (20:54)
[2022-11-11] MEDS: Topiramate 100 MG TABLET PO (20:54)
[2022-11-11] MEDS: Mirtazapine 15 MG TABLET 45 MG PO (20:59)
[2022-11-11] MEDS: Atorvastatin Calcium 80 MG TABLET PO (20:59)
[2022-11-11] MEDS: Loratadine 10 MG TABLET PO (21:00)
[2022-11-11] MEDS: traZODone HCL 100 MG TABLET PO (21:00)
[2022-11-12] VITALS (9 sets, daily range): BP systolic 153–167; BP diastolic 82–88; PULSE 78–87; RESP 16–20; TEMP 36.1–36.8; O2SAT 92–97
[2022-11-12] MEDS: 0.9 % Sodium Chloride Flush 3 ML SYRINGE IVFLUSH ×3 (02:50→18:48)
[2022-11-12] MEDS: oxyCODONE HCl Immed Release 5 MG TABLET PO (05:10)
[2022-11-12] MEDS: Enoxaparin Sodium 40 MG/0.4 ML SYRINGE SUBCUT (05:10)
[2022-11-12] MEDS: Omeprazole 40 MG CAPSULE.DR PO ×2 (05:10→16:06)
[2022-11-12] MEDS: Fluticasone/Vilanterol 100/25 BLST.W.DEV 1 PUFF INHALE (07:25)
[2022-11-12 07:50] LABS: Glucose, Whole Blood 297 mg/dL (60-115)
[2022-11-12] MEDS: Insulin Lispro 100 UNIT/ML 3 ML VIAL SUBCUT ×7 (07:56→21:46)
[2022-11-12] MEDS: Metoclopramide HCl 5 MG TABLET PO ×3 (07:57→21:44)
[2022-11-12] MEDS: Metoprolol Succinate ER 25 MG TAB.ER.24H PO (07:57)
[2022-11-12] MEDS: amLODIPine Besylate 10 MG TABLET PO (07:57)
[2022-11-12] MEDS: Sucralfate 1 GM TABLET 2 GM PO (07:58)
[2022-11-12] MEDS: Topiramate 100 MG TABLET PO ×2 (07:58→21:45)
[2022-11-12] MEDS: Venlafaxine HCl ER 37.5 MG CAP.ER.24H PO (07:59)
[2022-11-12] MEDS: Ezetimibe 10 MG TABLET PO (07:59)
[2022-11-12] MEDS: Cholecalciferol (Vitamin D3) 25 MCG TABLET 50 MCG PO (08:00)
[2022-11-12] MEDS: Aspirin Enteric Coated 81 MG TABLET.DR PO (08:01)
[2022-11-12] MEDS: Pregabalin 200 MG CAPSULE PO ×2 (08:02→21:44)
[2022-11-12] MEDS: Cyanocobalamin (Vitamin B-12) 1,000 MCG TABLET 1000 MCG PO (08:02)
[2022-11-12] MEDS: Celecoxib 200 MG CAPSULE PO (08:02)
[2022-11-12] MEDS: metFORMIN HCl ER 500 MG TAB.ER.24H 1000 MG PO (10:09)
--- NOTE | 2022-11-12 11:04 | P.PNCA_ITS ---
Subjective Subjective Date of Service: 11/12/22 Interval history: She states that she feels okay. Some dizziness still present, but not clear what that is as the blood pressure seems rather on the higher side and telemetry itself is okay. Review of Systems Review of Systems Yes all other systems are reviewed and are negative Constitutional: Reports as per HPI Eyes: Reports as per HPI Reports as per HPI Cardiovascular: Reports as per HPI, Denies acrocyanosis, Denies cool extremities, Denies chest pain, Denies leg edema, Reports lightheadedness, Den ies palpitations and Denies dyspnea Respiratory: Reports as per HPI, Reports no additional respiratory complaints and Denies dyspnea Gastrointestinal: Reports as per HPI and Reports no additional gastrointestinal complaints Genitourinary: Reports as per HPI Musculoskeletal: Reports no additional musculoskeletal complaints and Reports as per HPI Skin/Breast: Reports system reviewed and no additional complaints, except as docu Reports system reviewed and no additional complaints, except as documented and Reports as per HPI Psychiatric: Reports no additional psychiatric complaints and Reports as per HPI Endocrine: Reports no additional endocrine complaints, Reports as per HPI and Denies palpitations Hematologic/Lymphatic: Reports no additional hematologic/lymphatic complaints and Reports as per HPI Allergic/Immunologic: Reports no additional allergic/immunologic complaints and Reports as per HPI Physical Exam Vital Signs: Last Vital Signs Temp 96.9 F 11/12/22 07:32 Pulse 82 11/12/22 07:32 Resp 20 11/12/22 07:32 BP 153/84 H 11/12/22 06:00 Pulse Ox 92 11/12/22 02:54 O2 Del Method 11/12/22 02:54 BMI result Body Mass Index 37.4 Const General: comfortable and no acute distress Orientation/consciousness: patient oriented x3 HEENT Other: Unremarkable Head: Yes normal to inspection Neck Neck: Yes normal visual inspection Chest Chest palpation & inspection: normal inspection of the chest Resp Auscultation: clear to auscultation bilaterally Cardio Palpation: normal PMI Heart sounds: S1 normal heart sound present, S2 normal heart sound present, no gallops, no murmurs and no rubs GI Palpation (GI): Soft to palpation Back/Spine/Pelvis Other: unremarkable Skin General skin exam: no rashes or lesions noted Neuro General: patient oriented x3 Extrem General: Yes normal to inspection Psych Mental Status: mental status grossly normal Objective Labs and Meds Result diagrams: 11/10/22 13:53 11/10/22 13:53 Lab results: Laboratory Results - last 24 hr 11/11/22 11/11/22 11/11/22 12:38 16:22 20:44 POC Glucose 326 H 389 H* 390 H* 11/12/22 07:30 POC Glucose 297 H Progress Note: A&P Assessment and plan (1) Type 2 diabetes mellitus with unspecified complications: Status: Acute (2) Syncope: Status: Acute (3) Atherosclerotic cardiovascular disease: Status: Acute Plan Echocardiogram with preserved LVEF, 60%. Basal inferior hypokinesis but otherwise unremarkable. Likely reflects underlying coronary artery disease but does not explain her current syncopal episode. Blood sugars are extremely high over 700 when she came in. That could have been the reason for her syncope. Telemetry was reviewed and that shows no evidence of heart blocks or significant pauses or asystole or any tachyarrhythmias extra. At this time, no specific cardiac recommendations for syncope. Appropriately manage blood sugar. Discussed with Dr. Mac about that. Otherwise, we will arrange a 30 day monitor for rhythm monitoring as an outpatient. With regard to coronary disease, she does not have any chest pain and had discussed about cardiac catheterization in the past as an outpatient but she never really want to pursue anything invasive. We will follow this up as an outpatient rather. Time Spent With Patient Time: Total time managing care of this patient today 35 minutes. Progress Note: Quality Stroke Does the patient have a stroke diagnosis?: No Procedures Date of Service Date of Service: 11/12/22
[2022-11-12 11:32] LABS: Glucose, Whole Blood 461 mg/dL (60-115)
--- NOTE | 2022-11-12 12:28 | MHC.CM.PN ---
Addendum entered by Brooke Hewitt 11/12/22 14:06: MBS and PT eval ordered. Original Note: Ammy 11/11/22 Per MD rounds may discharge today pending GROUP UNDERWRITER swallow eval. CM will follow.
--- NOTE | 2022-11-12 13:24 | P.PNIM_ITS ---
Subjective Subjective Date of Service: 11/12/22 Interval History: f/u on syncope, no arrythma noted, blood sugars still very high Physical Exam Vital Signs: Vital Signs: Last Vital Signs Temp 97.7 F 11/12/22 11:39 Pulse 78 11/12/22 11:39 Resp 16 11/12/22 11:39 BP 154/88 H 11/12/22 11:39 Pulse Ox 92 11/12/22 11:39 O2 Del Method 11/12/22 11:39 BMI result Body Mass Index 37.4 Const: Other: General: AO X 3, no acute distress Resp: CTA bilateral CVS: S1,S2,RRR GI: +BS, NT, no distention Skin: No rash, echymosis in face Neuro: motor grossly intact Psych: appropriate affect Objective Data Active Medications Albuterol Sulfate (Albuterol Sulfate (0.083%) 2.5 Mg/3 Ml Vial.Neb) 2.5 mg INHALE Q4H PRN PRN Reason: shortness of breath or wheezing Albuterol Sulfate (Albuterol Sulfate 90 Mcg 8 Gm Inhaler) 2 puff INHALE QID PRN PRN Reason: shortness of breath or wheezing Amitriptyline HCl (Amitriptyline Hcl 50 Mg Tablet) 200 mg PO BEDTIME [facility] [place] Last Admin: 11/11/22 20:54 Dose: 200 mg Documented By: JANUARY Amlodipine Besylate (Amlodipine Besylate 10 Mg Tablet) 10 mg PO DAILY [facility] [place]; Pro tocol Last Admin: 11/12/22 07:57 Dose: 10 mg Documented By: JANUARY Aspirin (Aspirin Enteric Coated 81 Mg Tablet.) 81 mg PO DAILY [facility] [place] Last Admin: 11/12/22 08:01 Dose: 81 mg Documented By: JANUARY Atorvastatin Calcium (Atorvastatin Calcium 80 Mg Tablet) 80 mg PO BEDTIME [facility] [place] Last Admin: 11/11/22 20:59 Dose: 80 mg Documented By: JANUARY Celecoxib (Celecoxib 200 Mg Capsule) 200 mg PO DAILY [facility] [place] Last Admin: 11/12/22 08:02 Dose: 200 mg Documented By: JANUARY Clonazepam (Clonazepam 1 Mg Tablet) 1 mg PO BID PRN PRN Reason: Anxiety Cyanocobalamin (Cyanocobalamin (Vitamin B-12) 1,000 Mcg Tablet) 1,000 mcg PO DAILY [facility] [place] Last Admin: 11/12/22 08:02 Dose: 1,000 mcg Documented By: JANUARY Dextrose (Dextrose 50 % 25 Gm/50 Ml Syringe) 25 gm IVPUSH Q15M PRN; Protocol PRN Reason: per Hypoglycemia Standing Ord. Ezetimibe (Ezetimibe 10 Mg Tablet) 10 mg PO DAILY [facility] [place] Last Admin: 11/12/22 07:59 Dose: 10 mg Documented By: JANUARY Enoxaparin Sodium (Enoxaparin Sodium 40 Mg/0.4 Ml Syringe) 40 mg SUBCUT Q24H [facility] [place] Last Admin: 11/12/22 05:10 Dose: 40 mg Documented By: [place] Epinephrine (Epinephrine 1 Mg/Ml Vial) 0.3 mg IM Q20M PRN PRN Reason: Anaphylaxis Fluticasone/Vilanterol (Fluticasone/Vilanterol 100/25 Blst.W.Dev) 1 puff INHALE DAILY [facility] [place] Last Admin: 11/12/22 07:25 Dose: 1 puff Documented By: ARLYN Glucose (Glucose Gel 15 Gm Gel..Gram.) 15 gm PO Q15M PRN; Protocol PRN Reason: per Hypoglycemia Standing Ord. Ibuprofen (Ibuprofen 400 Mg Tablet) 400 mg PO Q6H PRN PRN Reason: Fever or Pain, Mild (Pain Scale 1-3) Last Admin: 11/11/22 16:52 Dose: 400 mg Documented By: ALICJA Insulin Human Lispro (Insulin Lispro 100 Unit/Ml 3 Ml Vial) 0 unit SUBCUT QIDACHS [facility] [place]; Protocol Last Admin: 11/12/22 11:50 Dose: 10 unit Documented By: REGGIE Insulin Human Lispro (Insulin Lispro 100 Unit/Ml 3 Ml Vial) 5 unit SUBCUT QIDACHS [facility] [place] Last Admin: 11/12/22 11:50 Dose: 5 unit Documented By: REGGIE Loratadine (Loratadine 10 Mg Tablet) 10 mg PO BEDTIME [facility] [place] Last Admin: 11/11/22 21:00 Dose: 10 mg Documented By: JANUARY Metformin HCl (Metformin Hcl Er 500 Mg Tab.Er.24h) 1,000 mg PO DAILY [facility] [place] Last Admin: 11/12/22 10:09 Dose: 1,000 mg Documented By: JANUARY Metoclopramide HCl (Metoclopramide Hcl 5 Mg Tablet) 5 mg PO TID [facility] [place] Last Admin: 11/12/22 07:57 Dose: 5 mg Documented By: JANUARY Metoprolol Succinate (Metoprolol Succinate Er 25 Mg Tab.Er.24h) 25 mg PO DAILY [facility] [place]; Protocol Last Admin: 11/12/22 07:57 Dose: 25 mg Documented By: JANUARY Mirtazapine (Mirtazapine 15 Mg Tablet) 45 mg PO BEDTIME [facility] [place] Last Admin: 11/11/22 20:59 Dose: 45 mg Documented By: JANUARY Nitroglycerin (Nitroglycerin 0.4 Mg Tab.Subl) 0.4 mg SUBLINGUAL Q5M PRN PRN Reason: Chest Pain Omeprazole (Omeprazole 40 Mg Capsule.Dr) 40 mg PO BID@0630,1630 [facility] [place] Last Admin: 11/12/22 05:10 Dose: 40 mg Documented By: [place] Oxycodone HCl (Oxycodone Hcl Immed Release 5 Mg Tablet) 5 mg PO Q4H PRN PRN Reason: Pain, Severe (Pain Scale 7-10) Last Admin: 11/12/22 05:10 Dose: 5 mg Documented By: [place] Pharmacy Consult (Consult Rx Perform Med Rec) 1 each MISCELLANE ONCE PRN PRN Reason: Consult order Pregabalin (Pregabalin 200 Mg Capsule) 200 mg PO BID [facility] [place] Last Admin: 11/12/22 08:02 Dose: 200 mg Documented By: JANUARY Sodium Chloride (0.9 % Sodium Chloride Flush 3 Ml Syringe) [facility] Last Admin: 11/12/22 09:27 Dose: 3 ml Documented By: JANUARY Sucralfate (Sucralfate 1 Gm Tablet) 2 gm PO DAILY [facility] [place] Last Admin: 11/12/22 07:58 Dose: 2 gm Documented By: JANUARY Topiramate (Topiramate 100 Mg Tablet) 100 mg PO BID [facility] [place] Last Admin: 11/12/22 07:58 Dose: 100 mg Documented By: JANUARY Trazodone HCl (Trazodone Hcl 100 Mg Tablet) 100 mg PO BEDTIME [facility] [place] Last Admin: 11/11/22 21:00 Dose: 100 mg Documented By: JANUARY Venlafaxine HCl (Venlafaxine Hcl Er 37.5 Mg Cap.Er.24h) 37.5 mg PO DAILY [facility] [place] Last Admin: 11/12/22 07:59 Dose: 37.5 mg Documented By: JANUARY Vitamin D (Cholecalciferol (Vitamin D3) 25 Mcg Tablet) 50 mcg PO DAILY [facility] [place] Last Admin: 11/12/22 08:00 Dose: 50 mcg Documented By: JANUARY Labs CBC & Chem 7: 11/10/22 13:53 11/10/22 13:53 Labs: Laboratory Results - last 24 hr 11/11/22 11/11/22 11/12/22 16:22 20:44 07:30 POC Glucose 389 H* 390 H* 297 H 11/12/22 11:28 POC Glucose 461 H* Assessment and Plan (1) Fracture of nasal bone: Status: Acute (2) Syncope: Status: Acute Plan Pt is a 66-year-old female with a PMH significant for?CAD, asthma, Davis's esophagus, non insulin-dependent DM2, and GERD who presents to the ED after a syncopal episode and fall where she suffered bilateral nasal bone fractures and a left eyebrow laceration.? Syncope Etiology unclear; differential includes vasovagal, cardiac arrythmia, orthostatic, hyperglycemia (800) -stress test tomorrow -check orthostatic BP -cardiac monitoring -echo -cardiology input Nasal bone fracture Ibuprofen for swelling Oxy for pain management Hyperglycemia, DM2 Hold all all home meds ssi, trulicity as outpatient, add lantus, continue metformin Lower right quadrant abdominal tenderness, chronic Patient has had extensive workup for this pain in the past with no diagnosis made Follow-up outpatient with GI Atherosclerotic heart disease of telida coronary artery without angina pectoris Follow-up outpatient with Dr. Pete CORONADO Continue home meds HTN Continue home meds PT eval before dischar Full Code Attending:?Dr. Alonso DVT Prophylaxis: Lovenox obs pt Time Spent With Patient Time: Total time managing care of this patient today ____ minutes. Quality Stroke Does the patient have a stroke diagnosis?: No VTE Prior VTE?: No VTE Risk Level:: Medical - moderate - high VTE Device Contraindication: Treatment Not Indicated VTE Drug Contraindication: N/A - Med Ordered
--- NOTE | 2022-11-12 13:26 | MHC.SL.SWA ---
Speech Pathologist Impression: Oropharyngeal Phase Dysphagia Dysphasia Diet Status: Downgrade solids Liquid Consistency and Strategies for Safe Swallow: Liquid Intake Recommendation: Thin Liquid Intake Strategies: Small Sips No Straws Solid Food Consistency: Dietary Recommendations: Grnd/Mech Altered (NDD2) Additional Modifications to Solid Foods: Moisten foods w/ sauce/gravy Oral Medication Intake: Whole with Puree Please contact the pharmacy regarding appropriate crushable or liquid drug formulations that are available whenever modified delivery is recommended. Compensatory Strategies and Precautions to be Taken for Safe Swallow: Sitting Upright (90 deg) No Straw Small Bites and Sips Alternate Liquids/Solids Rate of Ingestion Change Avoid Specific Foods Supervision While Eating and Drinking for Safe Swallow: Total Supervision (1:1) Foods to Avoid: Dry foods Swallowing Recommended Treatments: Recommendation for Speech: Outpatient Speech Therapy Inpatient Speech Therapy Modified Barium Swallow Study - Inpatient Modified Barium Swallow Study - Outpatient Comment: Recommend GROUND/MECH ALTERED solids (NDD2) and THIN liquids. Recommend larger pills WHOLE or CRUSHED in PUREE. Pt requires full supervision d/t witnessed aspiration. Aspiration precautions apply. Pt should be as close to 90 degrees as possible during PO. Recommend MBSS d/t reported globus sensation Wood Boatbuilder Apprentice Clinican/Clinical Fellow: Yes: Ashtyn Duran M.A., CF-PHYSICIAN OFFICE NURSE Supervisory Statement: I have reviewed and agree with the student/clinical fellow's documentation: Speech Language Pathologist:
--- NOTE | 2022-11-12 13:29 | MHC.SL.SWA ---
Addendum entered and electronically signed by Nereida Garcia MA, CCC-DATA SUPPORT SPECIALIST 11/12/22 13:46: D.S. Original Note: Speech Pathologist Impression: Oropharyngeal Dysphagia Dysphasia Diet Status: Downgrade solids Liquid Consistency and Strategies for Safe Swallow: Liquid Intake Recommendation: Thin Liquid Intake Strategies: Small Sips No Straws Solid Food Consistency: Dietary Recommendations: Grnd/Mech Altered (NDD2) Additional Modifications to Solid Foods: Moisten foods w/ sauce/gravy Oral Medication Intake: Whole with Puree Please contact the pharmacy regarding appropriate crushable or liquid drug formulations that are available whenever modified delivery is recommended. Compensatory Strategies and Precautions to be Taken for Safe Swallow: Sitting Upright (90 deg) No Straw Small Bites and Sips Alternate Liquids/Solids Rate of Ingestion Change Avoid Specific Foods Supervision While Eating and Drinking for Safe Swallow: Total Supervision (1:1) Foods to Avoid: Dry foods Recommendation for Speech: Outpatient Speech Therapy Inpatient Speech Therapy Modified Barium Swallow Study - Inpatient Modified Barium Swallow Study - Outpatient Comment: Recommend GROUND/MECH ALTERED solids (NDD2) and THIN liquids. Recommend larger pills WHOLE or CRUSHED in PUREE. Pt requires full supervision d/t witnessed aspiration. Aspiration precautions apply. Pt should be as close to 90 degrees as possible during PO. Recommend MBSS d/t reported globus sensation. MD, RN, RD notified via [employer]. HOSPITAL CLEANER notified in person. Board updated to reflect current diet recommendations. ordered MBSS. Associate Automation Engineer Clinican/Clinical Fellow: Yes: Ashtyn Duran M.A., CF-DATA SUPPORT SPECIALIST Supervisory Statement: I have reviewed and agree with the student/clinical fellow's documentation: Speech Language Pathologist:
[2022-11-12] MEDS: Insulin Glargine,Hum.rec.anlog 100 UNIT/ML 10 ML VIAL 20 UNIT SUBCUT (14:25)
[2022-11-12 15:40] LABS: Glucose, Whole Blood 346 mg/dL (60-115)
--- NOTE | 2022-11-12 16:51 | MHC.SL.IMP ---
Date of Plan of Treatment: 11/12/22 Onset of Symptoms/Illness: 10/12/18 Date Treatment Started: 11/12/22 Admitting Diagnosis: Fall resulting in bilateral nasal bone fractures and left eyebrow laceration Primary Speech & Language Diagnosis: R13.12 Oropharyngeal Phase Dysphagia Reason for Today's Visit: [id number] Modified Barium Swallow Study Pre-evaluation Dietary Consistencies: Grnd/Mech Altered (NDD2) Pre-evaluation Liquid Consistency: Thin Pre-evaluation Medication Administration: Crushed with Puree Medical History: Modified Barium Swallow Study Fluoroscopic Evaluation of Swallowing Function CPT Code 47701 Evaluation Year: 2022 Reason for Study: Pt reports globus sensation. Referring Physician: Montrell Mac MD Evaluating Clinician: Nereida Garcia MA, [facility] Study Number: 1 Patient Name: Naa Pedersen Status: Inpatient Age: 66 Gender: Female MEDICAL HISTORY: Past Medical History: CAD, asthma, John?s esophagus, non-insulin dependent DM2, GERD, atherosclerotic cardiovascular disease, chronic allergic rhinitis, chronic restrictive lung disease, essential hypertension, EDWIN on CPAP, other and unspecified hyperlipidemia, type 2 diabetes mellitus with unspecified complications Current (pre-evaluation) Intake/Diet: Route: PO Diet Grade: Mechanical Soft Liquid Consistencies: Thin Pre-Study Functional Oral Intake Scale (FOIS): 5- Total oral intake of multiple consistencies requiring special preparation Pain: Chronic/Ongoing reported at time of study, Throat, rated 3 on scale 0-10 SUBJECTIVE: Pt is a 66 year old female brought to the ED after a fall. Pt w/ bilateral nasal bone fractures and left eyebrow laceration. Pt?s head CT showed, ?No evidence of acute intracranial hemorrhage or edematous territorial infarction.? Per CM, pt lives at home with her and granddaughter. Pt was seen by [facility] for a bedside dysphagia evaluation earlier today after nursing reported pt was having difficulty swallowing. RN observed pt during mealtime. Pt reportedly had difficulty swallowing scrambled eggs and toast. Pt said pills felt stuck when taken with water. Subsequently larger pills were given with pudding. Pt reports globus sensation with food and occasionally choking. Additionally, pt reports occasional throat pain which she rated a 2 or 3 on a scale 0-10. [facility] at bedside witnessed pt coughing on bite of fish. Pt was recommended ground/mech altered diet (NDD2) as a precaution with thin liquids and pills in puree. [facility] also recommended further evaluation w/ MBSS. Per review of pt?s chart, pt had MBSS on 10[place]12[place] [facility] [place] pt?s hx of John?s esophagus and pt?s reports of coughing and choking during meals with occasional vomiting. This MBSS from 2018 showed no aspiration or penetration and pt was recommended to resume unmodified diet regular solids and thin liquids. Oral Motor Exam Facial Symmetry: Symmetrical Facial Movement: Controlled Mouth Occlusion: Normal Oral-Facial Teeth Characteristics: Intact/Normal Oral-Facial Smile (Lips) Description: Normal Oral-Facial Puff Cheeks Description: Normal Tongue Size: Normal Tongue Excursion Description: Normal Tongue Range of Movement Description: Normal Tongue Speed of Movement Description: Normal Tongue Strength of Movement (against opposing pressure): Normal Tongue Movement Characteristics: Normal/Absent Is patient able to manage secretions?: Yes Food and Liquid Trials: Oral Impairment: Lip Closure: 0=No labial escape Oral Impairment: Tongue Control During Bolus Hold: 1=Escape to lateral buccal cavity/floor of mouth (FOM) Oral Impairment: Bolus Preparation/Mastication: 1=Slow prolonged chewing/mashing with complete re-collection Oral Impairment: Bolus Transport/Lingual Motion: 2=Slowed tongue motion Oral Impairment: Oral Residue: 1=Trace residue lining oral structures Oral Impairment:Initiation of Pharyngeal Swallow: 3=Bolus head in pyriforms Pharyngeal Impairment: Soft Palate Elevation: 0=No bolus between soft palate (SP)/pharyngeal wall (PW) Pharyngeal Impairment: Laryngeal Elevation: 1=Partial thyroid cartilage/arytenoids to epiglottic petiole movement Pharyngeal Impairment: Anterior Hyoid Excursion: 1=Partial anterior movement Pharyngeal Impairment: Epiglottic Movement: 0=Complete inversion Pharyngeal Impairment: Laryngeal Vestibular Closure:: 0=Complete: no air/contrast in laryngeal vestibule Pharyngeal Impairment: Pharyngeal Stripping Wave: 0=Present: complete Pharyngeal Impairment: Pharyngeal Contraction: Did not test Pharyngeal Impairment: Pharyngoesophageal Segment Openin=Complete distension and complete duration: no obstruction of flow Pharyngeal Impairment: Tongue Base (TB) Retraction: 3=Wide column of contrast/air between TB and posterior PW Pharyngeal Impairment: Pharyngeal Residue: 2=Collection of residue within or on pharyngeal structures Pharyngeal Impairment: Esophageal Clearance Upright Position: Did not test Impressions and Recommendations OBJECTIVE: Time-out: performed at 3:00 Evaluation Start: 2:50; Stop: 2:55 Patient Positioning: Seated 70-90 degrees Viewing Planes: LAT & AP Contrast: MBSImP? Standardized Protocol using commercially prepared, standardized Barium viscosities, including: Varibar? THIN LIQUID (40% w/v, <15 cps) , 1/2 Shortbread Cookie (1 x1 x.25 ) MBSImP ID: [id number] MBSImP Results: Lip closure for intraoral bolus containment resulted in no labial escape. Tongue control during bolus hold allowed bolus escape to the lateral buccal cavity/floor of mouth. Bolus preparation and mastication resulted in slow, prolonged chewing/mashing but with complete re-collection. Bolus transport/lingual motion was with slowed tongue motion. Oral residue was a trace, lining oral structures. Initiation of the pharyngeal swallow occurred when the bolus head was in the pyriform sinuses. Soft palate elevation resulted in no bolus between the soft palate and the pharyngeal wall. Laryngeal elevation was decreased, with partial superior movement of the thyroid cartilage/partial approximation of the arytenoids to the epiglottic petiole. Anterior hyoid excursion demonstrated partial anterior movement. Epiglottic movement resulted in complete inversion. Laryngeal vestibular closure was complete, as indicated by no air or contrast within the laryngeal vestibule at the height of the swallow. Pharyngeal stripping wave was present and complete. Pharyngeal contraction could not be determined due to logistical reasons not related to physiologic impairment. Pharyngoesophageal segment opening was completely distended for complete duration with no obstruction of bolus flow. Tongue base retraction allowed a wide column of contrast or air between the retracted tongue base and the posterior pharyngeal wall. Pharyngeal residue was a collection of residue within or on pharyngeal structures. Esophageal clearance in the upright position could not be assessed due to logistical reasons not related to physiologic impairment. Oral Impairment Score: 7 Pharyngeal Impairment Score: 7 (absence of score, component 13) Esophageal Impairment Score: --- (absence of score, component 17) Laryngeal Penetration and Aspiration: Neither penetration nor aspiration was observed in today's study with Cookie, Thin. ASSESSMENT: Clinician Assessment: This exam was conducted by a multidisciplinary team, which included a speech pathologist, radiologist, and biomedical technician. Pt was sitting upright at 90 degrees in a chair for lateral view only. Pt was able to feed herself without any difficulty. Pt trialed the following solid and liquid consistencies: pureed solid (mixture applesauce with barium paste), ground solid (mixture chicken salad with barium paste), regular solid (Tatiana Doone cookie coated with barium paste), 5 mL thin liquid barium by cup, individual sip with bolus hold thin liquid barium via straw, sequential sips thin liquid barium via straw, whole barium pill tablet with sips of water by cup. Pt displayed adequate lip closure with no labial escape. When pt was instructed to hold the bolus in her mouth, there was escape of liquid just to the floor of mouth, but not posteriorly. It was noted with further trials, there was some premature posterior escape prior to productive lingual movement when pt did not volitionally hold bolus. Mastication was mildly slowed with piece meal deglutition pattern. Pt chewed bolus, swallowed partial bolus, chewed remaining bolus, and then swallowed again to clear the oral cavity. There was trace lingual residue, which was cleared with a spontaneous dry swallow. Posterior lingual movement for the transport of bolus was mildly slowed. Pharyngeal swallow trigger was delayed, initiated as bolus head reached the pyriforms. There was no nasopharyngeal reflux. Laryngeal elevation was incomplete with partial anterior hyoid excursion. Complete epiglottic inversion and complete laryngeal vestibular closure. There was trace residue on the tongue base and in the valleculae with trials of liquid and pureed solid, which spontaneously cleared. There was more residue collection (mild) with trials of ground solid and regular solid. Pt was instructed to swallow again. With 1-2 dry swallows, pharyngeal residue was effectively cleared. Chin tuck was also effective in clearing pharyngeal residue. No obstruction of flow through the pharyngoesophageal segment opening. There was no evidence of aspiration or penetration with intake of liquids and solids during this exam. Initially, pt held barium pill tablet in her mouth as she swallowed the water. Eventually, the barium pill tablet passed through the oral and pharyngeal cavities with multiple sips of water with no hang up. Liquid Intake Recommendation: Thin Liquid Intake Strategies: Small Sips Dietary Recommendations: Regular Medication Administration: Whole with Puree Please contact the pharmacy regarding appropriate crushable or liquid drug formulations that are available whenever modified delivery is recommended. Compensatory Strategies Recommended: Sitting Upright (90 deg), Chin Tuck, Double Swallow, Small Bites and Sips, Alternate Liquids/Solids, Rate of Ingestion Change, Avoid Specific Foods Supervision during eating and or drinking: Total Supervision (1:1) Recommended Treatments: Compens. Strategy Educat. Recommendation for Speech Therapy: Inpatient Speech Therapy PLAN: Intake Recommendations: Route: PO Diet Grade: Regular Liquid Consistencies: Thin Post-Study Functional Oral Intake Scale (FOIS): 6- Total oral intake with no special preparation, but must avoid specific foods or liquid items Suggested Referrals: The patient might benefit from a referral to: Gastroenterology Indication for Referral: Hx of John?s esophagus This exam revealed mild oropharyngeal dysphagia, characterized by mildly prolonged oral phase, premature posterior escape of bolus, delayed pharyngeal swallow trigger, and mild collection of residue on the tongue base and in the valleculae. Pt was able to effectively clear pharyngeal residue with 1-2 dry swallows and/or holding the chin tuck position when swallowing. There was no evidence of aspiration or penetration with trials of liquids and solids during this exam. Recommend regular diet, self-selecting soft-easy to chew solids, with THIN liquids and pills crushed or whole in PUREE. Recommend aspiration precautions: -Take small bites of food -Moisten food with sauces and gravies as needed -Chew food well -Avoid hard, tough to chew solids -After each bite, follow with 1-2 dry swallows to promote pharyngeal clearance -Chin tuck position as needed -Take small sips of liquid, one sip at a time -Maintain upright 90 degree position while eating and drinking Recommend pt to continue monitoring her dysphagia. If there are any changes or worsening of symptoms, consult with PCP, at which point a re-evaluation may be indicated. Therapy Recommendations: [facility] to f/u 1x time during hospitalization Prognosis for Improvement: The prognosis for the patient to meet nutritional needs by mouth is good based on degree of impairment. Short Term Goals: ? Education - The patient, family, nurse will verbalize/demonstrate understanding of the results of this evaluation, the above recommendations, and the swallowing guidelines. Frequency/Duration: 1 f/u Date Range for Service Requested: Timeline to reassess: Clinician - Supplemental, Miscellaneous Communication: It is important to note MBSS objective studies are snapshots in time and Patient function might vary with factors such as time of day or concomitant medical conditions. For this reason, the final treatment plan for this patient should rest with their medical care team. Additional recommendations should be considered with the totality of the Patient in mind. Thank for the opportunity to participate in the care of this patient. If you have any questions about the content of this report, please contact the [facility] at [facility]. Education: Education regarding findings from today's study and plans for therapy were provided to Patient only through Verbal Instruction. Understanding was expressed by the Patient only. Seo Intern Clinician/Clinical Fellow: No Supervisory Statement: N/A Speech Language Pathologist: Nereida Garcia M.A., CCC-[facility]
[2022-11-12 19:28] LABS: Glucose, Whole Blood 246 mg/dL (60-115)
[2022-11-12] MEDS: Loratadine 10 MG TABLET PO (21:44)
[2022-11-12] MEDS: Atorvastatin Calcium 80 MG TABLET PO (21:44)
[2022-11-12] MEDS: Amitriptyline HCl 50 MG TABLET 200 MG PO (21:44)
[2022-11-12] MEDS: Mirtazapine 15 MG TABLET 45 MG PO (21:44)
[2022-11-12] MEDS: traZODone HCL 100 MG TABLET PO (21:45)
[2022-11-13] VITALS (12 sets, daily range): BP systolic 104–179; BP diastolic 57–92; PULSE 78–94; RESP 12–18; TEMP 36–36.8; O2SAT 92–97
[2022-11-13] MEDS: 0.9 % Sodium Chloride Flush 3 ML SYRINGE IVFLUSH ×4 (00:59→20:17)
[2022-11-13] MEDS: Enoxaparin Sodium 40 MG/0.4 ML SYRINGE SUBCUT (05:44)
[2022-11-13] MEDS: Omeprazole 40 MG CAPSULE.DR PO ×2 (05:44→16:30)
[2022-11-13 07:26] LABS: Glucose, Whole Blood 271 mg/dL (60-115)
[2022-11-13] MEDS: Venlafaxine HCl ER 37.5 MG CAP.ER.24H PO (08:04)
[2022-11-13] MEDS: Topiramate 100 MG TABLET PO ×2 (08:04→20:09)
[2022-11-13] MEDS: metFORMIN HCl ER 500 MG TAB.ER.24H 1000 MG PO (08:04)
[2022-11-13] MEDS: amLODIPine Besylate 10 MG TABLET PO (08:05)
[2022-11-13] MEDS: Fluticasone/Vilanterol 100/25 BLST.W.DEV 1 PUFF INHALE (08:05)
[2022-11-13] MEDS: Aspirin Enteric Coated 81 MG TABLET.DR PO (08:05)
[2022-11-13] MEDS: Cholecalciferol (Vitamin D3) 25 MCG TABLET 50 MCG PO (08:05)
[2022-11-13] MEDS: Pregabalin 200 MG CAPSULE PO ×2 (08:05→20:09)
[2022-11-13] MEDS: Sucralfate 1 GM TABLET 2 GM PO (08:05)
[2022-11-13] MEDS: Ezetimibe 10 MG TABLET PO (08:05)
[2022-11-13] MEDS: Cyanocobalamin (Vitamin B-12) 1,000 MCG TABLET 1000 MCG PO (08:06)
[2022-11-13] MEDS: Celecoxib 200 MG CAPSULE PO (08:06)
[2022-11-13] MEDS: Metoclopramide HCl 5 MG TABLET PO ×3 (08:06→20:09)
[2022-11-13] MEDS: Insulin Lispro 100 UNIT/ML 3 ML VIAL SUBCUT ×9 (08:07→20:08)
[2022-11-13] MEDS: Insulin Glargine,Hum.rec.anlog 100 UNIT/ML 10 ML VIAL 20 UNIT SUBCUT (08:07)
[2022-11-13] MEDS: Metoprolol Succinate ER 25 MG TAB.ER.24H PO (08:08)
[2022-11-13 11:32] LABS: Glucose, Whole Blood 399 mg/dL (60-115)
[2022-11-13] MEDS: polyethylene glycoL 3350 17 GM POWD.PACK PO ×2 (11:33→20:09)
[2022-11-13] MEDS: Docusate Sodium 100 MG CAPSULE PO (11:33)
--- NOTE | 2022-11-13 12:13 | MHC.CM.PN ---
Met with patient and dtr for DP. Patient has sutured laceration on her forhead, and RAHUL racoon eyes. Patient has been prescribed new insulin. She will not be discharged today. T/W met with the patient alone as well. She stated that she lives with her . She reports feeling safe at home. She was confused as to why I was asking if everything is ok at home. She states that her dtr Laure Ignacio comes to the house and assists with home making a few times a week.
--- NOTE | 2022-11-13 12:42 | P.PNIM_ITS ---
Subjective Subjective Date of Service: 11/14/22 Interval History: f/u on syncope, no arrythma noted, blood sugars still very high, no arrythmia blood sugars remain very high Review of Systems no dizziness, no chest pain Physical Exam Vital Signs: Vital Signs: Last Vital Signs Temp 96.8 F 11/13/22 11:26 Pulse 80 11/13/22 11:26 Resp 12 11/13/22 11:26 BP 131/67 11/13/22 11:26 Pulse Ox 94 11/13/22 11:26 O2 Del Method 11/13/22 11:26 BMI result Body Mass Index 37.4 Const: Other: General: AO X 3, no acute distress Resp: CTA bilateral CVS: S1,S2,RRR GI: +BS, NT, no distention Skin: No rash, echymosis in face Neuro: motor grossly intact Psych: appropriate affect Objective Data Active Medications Albuterol Sulfate (Albuterol Sulfate (0.083%) 2.5 Mg/3 Ml Vial.Neb) 2.5 mg INHALE Q4H PRN PRN Reason: shortness of breath or wheezing Albuterol Sulfate (Albuterol Sulfate 90 Mcg 8 Gm Inhaler) 2 puff INHALE QID PRN PRN Reason: shortness of breath or wheezing Amitriptyline HCl (Amitriptyline Hcl 50 Mg Tablet) 200 mg PO BEDTIME [facility] Last Admin: 11/12/22 21:44 Dose: 200 mg Documented By: ISH Amlodipine Besylate (Amlodipine Besylate 10 Mg Tablet) 10 mg PO DAILY [facility]; Protocol Last Admin: 11/13/22 08:05 Dose: 10 mg Documented By: SASCHA Aspirin (Aspirin Enteric Coated 81 Mg Tablet.Dr) 81 mg PO DAILY [facility] Last Admin: 11/13/22 08:05 Dose: 81 mg Documented By: SASCHA Atorvastatin Calcium (Atorvastatin Calcium 80 Mg Tablet) 80 mg PO BEDTIME [facility] Last Admin: 11/12/22 21:44 Dose: 80 mg Documented By: ISH Celecoxib (Celecoxib 200 Mg Capsule) 200 mg PO DAILY [facility] Last Admin: 11/13/22 08:06 Dose: 200 mg Documented By: SASCHA Clonazepam (Clonazepam 1 Mg Tablet) 1 mg PO BID PRN PRN Reason: Anxiety Cyanocobalamin (Cyanocobalamin (Vitamin B-12) 1,000 Mcg Tablet) 1,000 mcg PO DAILY [facility] Last Admin: 11/13/22 08:06 Dose: 1,000 mcg Documented By: SASCHA Dextrose (Dextrose 50 % 25 Gm/50 Ml Syringe) 25 gm IVPUSH Q15M PRN; Protocol PRN Reason: per Hypoglycemia Standing Ord. Docusate Sodium (Docusate Sodium 100 Mg Capsule) 100 mg PO BID PRN PRN Reason: Constipation Ezetimibe (Ezetimibe 10 Mg Tablet) 10 mg PO DAILY [facility] Last Admin: 11/13/22 08:05 Dose: 10 mg Documented By: SASCHA Enoxaparin Sodium (Enoxaparin Sodium 40 Mg/0.4 Ml Syringe) 40 mg SUBCUT Q24H [facility] Last Admin: 11/13/22 05:44 Dose: 40 mg Documented By: HERMINIO Epinephrine (Epinephrine 1 Mg/Ml Vial) 0.3 mg IM Q20M PRN PRN Reason: Anaphylaxis Fluticasone/Vilanterol (Fluticasone/Vilanterol 100/25 Blst.W.Dev) 1 puff INHALE DAILY [facility] Last Admin: 11/13/22 08:05 Dose: 1 puff Documented By: ABA Glucose (Glucose Gel 15 Gm Gel..Gram.) 15 gm PO Q15M PRN; Protocol PRN Reason: per Hypoglycemia Standing Ord. Ibuprofen (Ibuprofen 400 Mg Tablet) 400 mg PO Q6H PRN PRN Reason: Fever or Pain, Mild (Pain Scale 1-3) Last Admin: 11/11/22 16:52 Dose: 400 mg Documented By: ALICJA Insulin Glargine (Insulin Glargine,Hum.Rec.Anlog 100 Unit/Ml 10 Ml Vial) 20 unit SUBCUT DAILY [facility] Last Admin: 11/13/22 08:07 Dose: 20 unit Documented By: SASCHA Insulin Human Lispro (Insulin Lispro 100 Unit/Ml 3 Ml Vial) 0 unit SUBCUT QIDACHS [facility]; Protocol Last Admin: 11/13/22 11:39 Dose: 10 unit Documented By: SASCHA Insulin Human Lispro (Insulin Lispro 100 Unit/Ml 3 Ml Vial) 5 unit SUBCUT QIDACHS [facility] Last Admin: 11/13/22 11:34 Dose: 5 unit Documented By: SASCHA Loratadine (Loratadine 10 Mg Tablet) 10 mg PO BEDTIME [facility] Last Admin: 11/12/22 21:44 Dose: 10 mg Documented By: ISH Metformin HCl (Metformin Hcl Er 500 Mg Tab.Er.24h) 1,000 mg PO DAILY [facility] Last Admin: 11/13/22 08:04 Dose: 1,000 mg Documented By: SASCHA Metoclopramide HCl (Metoclopramide Hcl 5 Mg Tablet) 5 mg PO TID [facility] Last Admin: 11/13/22 08:06 Dose: 5 mg Documented By: SASCHA Metoprolol Succinate (Metoprolol Succinate Er 25 Mg Tab.Er.24h) 25 mg PO DAILY [facility]; Protocol Last Admin: 11/13/22 08:08 Dose: 25 mg Documented By: SASCHA Mirtazapine (Mirtazapine 15 Mg Tablet) 45 mg PO BEDTIME [facility] Last Admin: 11/12/22 21:44 Dose: 45 mg Documented By: ISH Nitroglycerin (Nitroglycerin 0.4 Mg Tab.Subl) 0.4 mg SUBLINGUAL Q5M PRN PRN Reason: Chest Pain Omeprazole (Omeprazole 40 Mg Capsule.Dr) 40 mg PO BID@0630,1630 [facility] Last Admin: 11/13/22 05:44 Dose: 40 mg Documented By: HERMINIO Oxycodone HCl (Oxycodone Hcl Immed Release 5 Mg Tablet) 5 mg PO Q4H PRN PRN Reason: Pain, Severe (Pain Scale 7-10) Last Admin: 11/12/22 05:10 Dose: 5 mg Documented By: [place] Pharmacy Consult (Consult Rx Perform Med Rec) 1 each MISCELLANE ONCE PRN PRN Reason: Consult order Polyethylene Glycol (Polyethylene Glycol 3350 17 Gm Powd.Pack) 17 gm PO BID [facility] Pregabalin (Pregabalin 200 Mg Capsule) 200 mg PO BID [facility] Last Admin: 11/13/22 08:05 Dose: 200 mg Documented By: SASCHA Sodium Chloride (0.9 % Sodium Chloride Flush 3 Ml Syringe) 3 ml IVFLUSH QSHIFT [facility] Last Admin: 11/13/22 08:06 Dose: 3 ml Documented By: SASCHA Sucralfate (Sucralfate 1 Gm Tablet) 2 gm PO DAILY [facility] Last Admin: 11/13/22 08:05 Dose: 2 gm Documented By: SASCHA Topiramate (Topiramate 100 Mg Tablet) 100 mg PO BID [facility] Last Admin: 11/13/22 08:04 Dose: 100 mg Documented By: SASCHA Trazodone HCl (Trazodone Hcl 100 Mg Tablet) 100 mg PO BEDTIME [facility] Last Admin: 11/12/22 21:45 Dose: 100 mg Documented By: ISH Venlafaxine HCl (Venlafaxine Hcl Er 37.5 Mg Cap.Er.24h) 37.5 mg PO DAILY [facility] Last Admin: 11/13/22 08:04 Dose: 37.5 mg Documented By: SASCHA Vitamin D (Cholecalciferol (Vitamin D3) 25 Mcg Tablet) 50 mcg PO DAILY [facility] Last Admin: 11/13/22 08:05 Dose: 50 mcg Documented By: SASCHA Labs 11/10/22 13:53 11/10/22 13:53 Labs: Laboratory Results - last 24 hr 11/12/22 11/12/22 11/13/22 15:37 19:25 07:16 POC Glucose 346 H 246 H 271 H 11/13/22 11:24 POC Glucose 399 H* Assessment and Plan (1) Fracture of nasal bone: Status: Acute (2) Syncope: Status: Acute Plan Pt is a 66-year-old female with a PMH significant for?CAD, asthma, Davis's esophagus, non insulin-dependent DM2, and GERD who presents to the ED after a syncopal episode and fall where she suffered bilateral nasal bone fractures and a left eyebrow laceration.? Syncope Etiology unclear; differential includes vasovagal, cardiac arrythmia, orthostatic, hyperglycemia (800) -stress test tomorrow -check orthostatic BP -cardiac monitoring -echo -cardiology input Nasal bone fracture Ibuprofen for swelling Oxy for pain management Diabetes with marked Hyperglycemia on Trulicity Metformin started on Lantus 20 daily, continue SSI with adjustment and . Need endocrinology eval on outpatient basis ssi, trulicity as outpatient, add lantus, continue metformin Lower right quadrant abdominal tenderness, chronic Patient has had extensive workup for this pain in the past with no diagnosis made Follow-up outpatient with GI Atherosclerotic heart disease of [place] coronary artery without angina pectoris Follow-up outpatient with Dr. Pete CORONADO Continue home meds HTN Continue home meds PT eval before dischar Full Code Attending:?Dr. Alonso DVT Prophylaxis: Lovenox obs pt Time Spent With Patient Time: Total time managing care of this patient today ____ minutes. Quality Stroke Does the patient have a stroke diagnosis?: No VTE Prior VTE?: No VTE Risk Level:: Medical - moderate - high VTE Device Contraindication: Treatment Not Indicated VTE Drug Contraindication: N/A - Med Ordered
[2022-11-13 13:58] LABS: Estimated Average Glucose 341 mg/dL; Hemoglobin A1c % 13.5 %
[2022-11-13 15:56] LABS: Glucose, Whole Blood 232 mg/dL (60-115)
--- NOTE | 2022-11-13 17:37 | MHC.SLORD ---
Speech Language Pathology Order Status: Attempted to see patient X2 this am to review MBSS from yesterday and provide education/recommendations, patient was sleeping soundly. Will re-attempt 10/14.
[2022-11-13 19:17] LABS: Glucose, Whole Blood 211 mg/dL (60-115)
[2022-11-13] MEDS: Amitriptyline HCl 50 MG TABLET 200 MG PO (20:09)
[2022-11-13] MEDS: traZODone HCL 100 MG TABLET PO (20:09)
[2022-11-13] MEDS: Mirtazapine 15 MG TABLET 45 MG PO (20:09)
[2022-11-13] MEDS: Atorvastatin Calcium 80 MG TABLET PO (20:09)
[2022-11-13] MEDS: Loratadine 10 MG TABLET PO (20:09)
[2022-11-13] MEDS: Ibuprofen 400 MG TABLET PO (20:11)
[2022-11-14] VITALS (13 sets, daily range): BP systolic 129–164; BP diastolic 64–80; PULSE 80–93; RESP 14–18; TEMP 36–36.7; O2SAT 92–97
[2022-11-14] MEDS: Omeprazole 40 MG CAPSULE.DR PO ×2 (05:12→16:20)
[2022-11-14] MEDS: Enoxaparin Sodium 40 MG/0.4 ML SYRINGE SUBCUT (05:12)
[2022-11-14 07:39] LABS: Glucose, Whole Blood 248 mg/dL (60-115)
[2022-11-14] MEDS: Fluticasone/Vilanterol 100/25 BLST.W.DEV 1 PUFF INHALE (07:57)
--- NOTE | 2022-11-14 09:01 | MHC.CM.PN ---
Addendum entered by Brooke Hewitt 11/14/22 13:31: Per MD rounds today. The patient will discharge with home services. All three agencies accepted the patient. The patients chose [facility] for home care services. DC is anticipated today. Original Note: DP Home with family assist and transport on admit; but the patient is new to insulin. She may need [facility] services. Patients preferences have been obtained. Referrals have been sent out to home care agencies.
[2022-11-14] MEDS: Insulin Lispro 100 UNIT/ML 3 ML VIAL SUBCUT ×8 (09:30→20:11)
[2022-11-14] MEDS: Pregabalin 200 MG CAPSULE PO ×2 (09:31→20:10)
[2022-11-14] MEDS: Insulin Glargine,Hum.rec.anlog 100 UNIT/ML 10 ML VIAL 20 UNIT SUBCUT (09:31)
[2022-11-14] MEDS: metFORMIN HCl ER 500 MG TAB.ER.24H 1000 MG PO (09:32)
[2022-11-14] MEDS: Celecoxib 200 MG CAPSULE PO (09:32)
[2022-11-14] MEDS: Topiramate 100 MG TABLET PO ×2 (09:32→20:10)
[2022-11-14] MEDS: Metoclopramide HCl 5 MG TABLET PO ×3 (09:32→20:10)
[2022-11-14] MEDS: Metoprolol Succinate ER 25 MG TAB.ER.24H PO (09:32)
[2022-11-14] MEDS: amLODIPine Besylate 10 MG TABLET PO (09:32)
[2022-11-14] MEDS: Cholecalciferol (Vitamin D3) 25 MCG TABLET 50 MCG PO (09:32)
[2022-11-14] MEDS: Cyanocobalamin (Vitamin B-12) 1,000 MCG TABLET 1000 MCG PO (09:32)
[2022-11-14] MEDS: 0.9 % Sodium Chloride Flush 3 ML SYRINGE IVFLUSH ×3 (09:33→20:19)
[2022-11-14] MEDS: Aspirin Enteric Coated 81 MG TABLET.DR PO (09:33)
[2022-11-14] MEDS: Sucralfate 1 GM TABLET 2 GM PO (09:33)
[2022-11-14] MEDS: Venlafaxine HCl ER 37.5 MG CAP.ER.24H PO (09:33)
[2022-11-14] MEDS: Ezetimibe 10 MG TABLET PO (09:34)
[2022-11-14] MEDS: polyethylene glycoL 3350 17 GM POWD.PACK PO ×2 (09:41→20:10)
[2022-11-14 11:10] LABS: Glucose, Whole Blood 354 mg/dL (60-115)
--- NOTE | 2022-11-14 11:26 | HO.PM.IMPN ---
Subjective Subjective Date of Service: 11/14/22 Interval History: f/u on syncope, no arrythma noted, blood sugars still very high desopite adjustment in med Review of Systems no dizziness, no chest pain Physical Exam Vital Signs: Vital Signs: Last Vital Signs Temp 97.5 F 11/14/22 10:59 Pulse 84 11/14/22 10:59 Resp 14 11/14/22 10:59 BP 144/75 H 11/14/22 10:59 Pulse Ox 94 11/14/22 10:59 O2 Del Method 11/14/22 10:59 BMI result Body Mass Index 37.4 Const: Other: General: AO X 3, no acute distress Resp: CTA bilateral CVS: S1,S2,RRR GI: +BS, NT, no distention Skin: No rash, echymosis in face Neuro: motor grossly intact Psych: appropriate affect Objective Data Active Medications Albuterol Sulfate (Albuterol Sulfate (0.083%) 2.5 Mg/3 Ml Vial.Neb) 2.5 mg INHALE Q4H PRN PRN Reason: shortness of breath or wheezing Albuterol Sulfate (Albuterol Sulfate 90 Mcg 8 Gm Inhaler) 2 puff INHALE QID PRN PRN Reason: shortness of breath or wheezing Amitriptyline HCl (Amitriptyline Hcl 50 Mg Tablet) 200 mg PO BEDTIME [facility] Last Admin: 11/13/22 20:09 Dose: 200 mg Documented By: ALIVIA Amlodipine Besylate (Amlodipine Besylate 10 Mg Tablet) 10 mg PO DAILY [facility]; Protocol Last Admin: 11/14/22 09:32 Dose: 10 mg Documented By: QUIQUE Aspirin (Aspirin Enteric Coated 81 Mg Tablet.) 81 mg PO DAILY [facility] Last Admin: 11/14/22 09:33 Dose: 81 mg Documented By: QUIQUE Atorvastatin Calcium (Atorvastatin Calcium 80 Mg Tablet) 80 mg PO BEDTIME [facility] Last Admin: 11/13/22 20:09 Dose: 80 mg Documented By: ALIVIA Celecoxib (Celecoxib 200 Mg Capsule) 200 mg PO DAILY [facility] Last Admin: 11/14/22 09:32 Dose: 200 mg Documented By: QUIQUE Clonazepam (Clonazepam 1 Mg Tablet) 1 mg PO BID PRN PRN Reason: Anxiety Cyanocobalamin (Cyanocobalamin (Vitamin B-12) 1,000 Mcg Tablet) 1,000 mcg PO DAILY [facility] Last Admin: 11/14/22 09:32 Dose: 1,000 mcg Documented By: QUIQUE Dextrose (Dextrose 50 % 25 Gm/50 Ml Syringe) 25 gm IVPUSH Q15M PRN; Protocol PRN Reason: per Hypoglycemia Standing Ord. Docusate Sodium (Docusate Sodium 100 Mg Capsule) 100 mg PO BID PRN PRN Reason: Constipation Ezetimibe (Ezetimibe 10 Mg Tablet) 10 mg PO DAILY [facility] Last Admin: 11/14/22 09:34 Dose: 10 mg Documented By: QUIQUE Enoxaparin Sodium (Enoxaparin Sodium 40 Mg/0.4 Ml Syringe) 40 mg SUBCUT Q24H [facility] Last Admin: 11/14/22 05:12 Dose: 40 mg Documented By: ALIVIA Epinephrine (Epinephrine 1 Mg/Ml Vial) 0.3 mg IM Q20M PRN PRN Reason: Anaphylaxis Fluticasone/Vilanterol (Fluticasone/Vilanterol 100/25 Blst.W.Dev) 1 puff INHALE DAILY [facility] Last Admin: 11/14/22 07:57 Dose: 1 puff Documented By: ABA Glucose (Glucose Gel 15 Gm Gel..Gram.) 15 gm PO Q15M PRN; Protocol PRN Reason: per Hypoglycemia Standing Ord. Ibuprofen (Ibuprofen 400 Mg Tablet) 400 mg PO Q6H PRN PRN Reason: Fever or Pain, Mild (Pain Scale 1-3) Last Admin: 11/13/22 20:11 Dose: 400 mg Documented By: ALIVIA Insulin Glargine (Insulin Glargine,Hum.Rec.Anlog 100 Unit/Ml 10 Ml Vial) 20 unit SUBCUT DAILY [facility] Last Admin: 11/14/22 09:31 Dose: 20 unit Documented By: QUIQUE Insulin Human Lispro (Insulin Lispro 100 Unit/Ml 3 Ml Vial) 0 unit SUBCUT QIDAS [facility]; Protocol Last Admin: 11/14/22 11:20 Dose: 15 unit Documented By: QUIQUE Insulin Human Lispro (Insulin Lispro 100 Unit/Ml 3 Ml Vial) 5 unit SUBCUT QIDAS [facility] Last Admin: 11/14/22 11:20 Dose: 5 unit Documented By: QUIQUE Loratadine (Loratadine 10 Mg Tablet) 10 mg PO BEDTIME [facility] Last Admin: 11/13/22 20:09 Dose: 10 mg Documented By: ALIVIA Metformin HCl (Metformin Hcl Er 500 Mg Tab.Er.24h) 1,000 mg PO DAILY [facility] Last Admin: 11/14/22 09:32 Dose: 1,000 mg Documented By: QUIQUE Metoclopramide HCl (Metoclopramide Hcl 5 Mg Tablet) 5 mg PO TID [facility] Last Admin: 11/14/22 09:32 Dose: 5 mg Documented By: QUIQUE Metoprolol Succinate (Metoprolol Succinate Er 25 Mg Tab.Er.24h) 25 mg PO DAILY [facility]; Protocol Last Admin: 11/14/22 09:32 Dose: 25 mg Documented By: QUIQUE Mirtazapine (Mirtazapine 15 Mg Tablet) 45 mg PO BEDTIME [facility] Last Admin: 11/13/22 20:09 Dose: 45 mg Documented By: ALIVIA Nitroglycerin (Nitroglycerin 0.4 Mg Tab.Subl) 0.4 mg SUBLINGUAL Q5M PRN PRN Reason: Chest Pain Omeprazole (Omeprazole 40 Mg Capsule.Dr) 40 mg PO BID@0630,1630 [facility] Last Admin: 11/14/22 05:12 Dose: 40 mg Documented By: ALIVIA Oxycodone HCl (Oxycodone Hcl Immed Release 5 Mg Tablet) 5 mg PO Q4H PRN PRN Reason: Pain, Severe (Pain Scale 7-10) Last Admin: 11/12/22 05:10 Dose: 5 mg Documented By: [place] Pharmacy Consult (Consult Rx Perform Med Rec) 1 each MISCELLANE ONCE PRN PRN Reason: Consult order Polyethylene Glycol (Polyethylene Glycol 3350 17 Gm Powd.Pack) 17 gm PO BID [facility] Last Admin: 11/14/22 09:41 Dose: 17 gm Documented By: QUIQUE Pregabalin (Pregabalin 200 Mg Capsule) 200 mg PO BID [facility] Last Admin: 11/14/22 09:31 Dose: 200 mg Documented By: QUIQUE Sodium Chloride (0.9 % Sodium Chloride Flush 3 Ml Syringe) 3 ml IVFLUSH QSHIFT [facility] Last Admin: 11/14/22 09:33 Dose: 3 ml Documented By: QUIQUE Sucralfate (Sucralfate 1 Gm Tablet) 2 gm PO DAILY [facility] Last Admin: 11/14/22 09:33 Dose: 2 gm Documented By: QUIQUE Topiramate (Topiramate 100 Mg Tablet) 100 mg PO BID [facility] Last Admin: 11/14/22 09:32 Dose: 100 mg Documented By: QUIQUE Trazodone HCl (Trazodone Hcl 100 Mg Tablet) 100 mg PO BEDTIME [facility] Last Admin: 11/13/22 20:09 Dose: 100 mg Documented By: ALIVIA Venlafaxine HCl (Venlafaxine Hcl Er 37.5 Mg Cap.Er.24h) 37.5 mg PO DAILY [facility] Last Admin: 11/14/22 09:33 Dose: 37.5 mg Documented By: QUIQUE Vitamin D (Cholecalciferol (Vitamin D3) 25 Mcg Tablet) 50 mcg PO DAILY [facility] Last Admin: 11/14/22 09:32 Dose: 50 mcg Documented By: QUIQUE Labs 11/10/22 13:53 11/10/22 13:53 Labs: Laboratory Results - last 24 hr 11/13/22 11/13/22 11/13/22 11:24 13:21 15:26 POC Glucose 399 H* 232 H Estimat Average Glucose 341 Hemoglobin A1c % 13.5 11/13/22 11/14/22 11/14/22 19:06 07:32 10:57 POC Glucose 211 H 248 H 354 H* Estimat Average Glucose Hemoglobin A1c % Assessment and Plan (1) Fracture of nasal bone: Status: Acute (2) Syncope: Status: Acute Plan Pt is a 66-year-old female with a PMH significant for?CAD, asthma, Davis's esophagus, non insulin-dependent DM2, and GERD who presents to the ED after a syncopal episode and fall where she suffered bilateral nasal bone fractures and a left eyebrow laceration.? Syncope Etiology unclear; differential includes vasovagal, cardiac arrythmia, orthostatic, hyperglycemia (800) -stress test tomorrow -check orthostatic BP -cardiac monitoring -echo unremarkable, ef 62 -cardiology input Nasal bone fracture Ibuprofen for swelling Oxy for pain management Diabetes with marked Hyperglycemia on Trulicity Metformin started on Lantus 20 daily, increase to 30, continue SSI with adjustment and . Need endocrinology eval on outpatient basis ssi, trulicity as outpatient, add lantus, continue metformin Lower right quadrant abdominal tenderness, chronic Patient has had extensive workup for this pain in the past with no diagnosis made Follow-up outpatient with GI Atherosclerotic heart disease of [place] coronary artery without angina pectoris Follow-up outpatient with Dr. Pete CORONADO Continue home meds HTN Continue home meds PT eval before dischar Full Code Attending:?Dr. Alonso DVT Prophylaxis: Lovenox obs pt Time Spent With Patient Time: Total time managing care of this patient today ____ minutes. Quality Stroke Does the patient have a stroke diagnosis?: No VTE Prior VTE?: No VTE Risk Level:: Medical - moderate - high VTE Device Contraindication: Treatment Not Indicated VTE Drug Contraindication: N/A - Med Ordered
--- NOTE | 2022-11-14 11:27 | MHC.SL.SWA ---
Speech Pathologist Impression: Oropharyngeal dysphagia Dysphasia Diet Status: No Change Liquid Consistency and Strategies for Safe Swallow: Liquid Intake Recommendation: Thin Liquid Intake Strategies: Small Sips Solid Food Consistency: Dietary Recommendations: Regular Additional Modifications to Solid Foods: Moisten foods w/ sauce/gravy Oral Medication Intake: Whole with Puree Please contact the pharmacy regarding appropriate crushable or liquid drug formulations that are available whenever modified delivery is recommended. Compensatory Strategies and Precautions to be Taken for Safe Swallow: Sitting Upright (90 deg) Chin Tuck Double Swallow Small Bites and Sips Alternate Liquids/Solids Rate of Ingestion Change Avoid Specific Foods Supervision While Eating and Drinking for Safe Swallow: Total Supervision (1:1) Foods to Avoid: Hard, tough solids per pt's tolerance/preference Swallowing Recommended Treatments: Compens. Strategy Educat. Recommendation for Speech: D/C PER MBSS 11/12/22: PLAN: Intake Recommendations: Route: PO Diet Grade: Regular Liquid Consistencies: Thin Post-Study Functional Oral Intake Scale (FOIS): 6- Total oral intake with no special preparation, but must avoid specific foods or liquid items Suggested Referrals: The patient might benefit from a referral to: Gastroenterology Indication for Referral: Hx of John?s esophagus MBSS 11/12/21 revealed mild oropharyngeal dysphagia, characterized by mildly prolonged oral phase, premature posterior escape of bolus, delayed pharyngeal swallow trigger, and mild collection of residue on the tongue base and in the valleculae. Pt was able to effectively clear pharyngeal residue with 1-2 dry swallows and/or holding the chin tuck position when swallowing. There was no evidence of aspiration or penetration with trials of liquids and solids during this exam. Recommend regular diet, self-selecting soft-easy to chew solids, with THIN liquids and pills crushed or whole in PUREE. Recommend aspiration precautions: -Take small bites of food -Moisten food with sauces and gravies as needed -Chew food well -Avoid hard, tough to chew solids -After each bite, follow with 1-2 dry swallows to promote pharyngeal clearance -Chin tuck position as needed -Take small sips of liquid, one sip at a time -Maintain upright 90 degree position while eating and drinking Recommend pt to continue monitoring her dysphagia. If there are any changes or worsening of symptoms, consult with PCP, at which point a re-evaluation may be indicated. Prognosis for Improvement: The prognosis for the patient to meet nutritional needs by mouth is good based on degree of impairment. Campground Hand Clinican/Clinical Fellow: Yes: Cristina Tan Supervisory Statement: I have reviewed and agree with the student/clinical fellow's documentation: Yes Speech Language Pathologist: Nereida Garcia M.A., CCC-CALENDER LET OFF OPERATOR
--- NOTE | 2022-11-14 14:13 | PC.NURSE ---
pt ambulated to the bathroom using her walker. denies dizziness
[2022-11-14 15:21] LABS: Glucose, Whole Blood 360 mg/dL (60-115)
[2022-11-14] MEDS: Insulin Glargine,Hum.rec.anlog 100 UNIT/ML 10 ML VIAL 10 UNIT SUBCUT (18:58)
[2022-11-14 19:11] LABS: Glucose, Whole Blood 160 mg/dL (60-115)
[2022-11-14] MEDS: Ibuprofen 400 MG TABLET PO (20:09)
[2022-11-14] MEDS: Atorvastatin Calcium 80 MG TABLET PO (20:10)
[2022-11-14] MEDS: Amitriptyline HCl 50 MG TABLET 200 MG PO (20:10)
[2022-11-14] MEDS: Loratadine 10 MG TABLET PO (20:10)
[2022-11-14] MEDS: traZODone HCL 100 MG TABLET PO (20:10)
[2022-11-14] MEDS: Mirtazapine 15 MG TABLET 45 MG PO (20:10)
[2022-11-15 04:00] VITALS: BP 126/71; PULSE 87; PULSE 94; RESP 20; TEMP 36.6
[2022-11-15] MEDS: Omeprazole 40 MG CAPSULE.DR PO (05:36)
[2022-11-15] MEDS: Enoxaparin Sodium 40 MG/0.4 ML SYRINGE SUBCUT (05:36)
[2022-11-15 05:59] VITALS: BP 134/74; PULSE 87
[2022-11-15 06:00] VITALS: BP 129/64; PULSE 89
--- NOTE | 2022-11-15 07:56 | PM.DS ---
DS: Providers Provider Date of Service: 11/15/22 Date of admission: 11/10/22 23:01 Primary care physician: Renan Cabral MD Consults: 11/10/22 23:06 Consult to Cardiology Routine Consulting Provider: Dileep Freeman Reason for consultation: Syncope Has provider been notified: No DS: Diagnosis Discharge Diagnosis (1) Fracture of nasal bone: Status: Acute (2) Syncope: Status: Resolved DS: Summary Hospital Course Hospital Course: Chief Complaint: Syncope Pt is a 66-year-old female with a PMH significant for?CAD, asthma, Davis's esophagus, non insulin-dependent DM2, and GERD who presents to the ED after a syncopal episode and fall.?Patient is primarily [place]-speaking, research 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 Patient states she was leaving her daughter's home when she opened the door and suddenly felt weak in her legs and knees and then blacked out?.? It is unclear whether she blacked out before she fell or as a result of her fall.? Patient cannot recall exactly what happened. Fall was unwitnessed and it is unclear how long she was out for.? When she came to patient was on the floor on her daughter's porch and she was bleeding from a cut above her left eye sustained in the fall. She was dizzy for a minute or two but was able to call her daughter for help.? Patient states that she often feels dizzy in the morning when she tries to wake up.? When this happens she lays back down and the dizziness usually passes within a few minutes. Patient notes that she has occasional chest pain and pressure at rest, says it occurs roughly once a week? Patient currently has no dizziness or lightheadedness, no chest pain/pressure, palpitations.? No shortness of breath.? She does complain of pain and difficulty breathing through her nose due to swelling.? Patient complains of chronic lower right abdominal pain which she has had extensive workup in the past for with no clear diagnosis.? Patient states she has been eating and drinking normally.? Denies recent sickness, nausea, vomiting, fever, chills.? No new medications. Of note, pt has a diagnosis of CAD and followed by Dr. Freeman, last seen on 10/28/2022. Coronary CTA showed moderate calcification of the LAD and circumflex with no occlusion.? Patient has not undergone cardiac catheterization although it has been discussed. In the ED patient was noted to have a 3 cm laceration above her left eye brow and infraorbital bruising bilaterally. Labs were significant for elevated random glucose of 779 and elevated alk-phos of 144; otherwise unremarkable. CT?of the head face and cervical spine showed no evidence of acute intracranial hemorrhage or edematous territorial infarction and mildly displaced bilateral nasal bone fractures.? EKG showed normal sinus rhythm with right bundle-branch block as seen on previous EKG, no acute ischemic findings. Pt was treated with 2 L of normal saline and received 10 units of Humalog.? Orthostatics were negative however they were administered after she received 1 L of normal saline.? Patient given Tylenol and facial laceration repaired. Pt will be admitted to telemetry observation for additional workup and evaluation of syncope. Hospital course: Patient presentd with syncope with unclear circumstances and sustained nasal bone fracture, work up included ECG showing no ACS, no arrythmia, orthstatic blood pressure was unremarkable, the one signficant finding was elevated blood glucose of nearly 800s and hemoglobin A1C of 13 which I suspected led to syncope. She has been monitored on tele without arrythmia during entire stay, echo showed EF 62 with no WMA, CT head showed no acute finding. Adjustment has been made to her diabetes meds with addition of Lantus now 30 units daily in additional to sliding scale insuin. At home she' s on Metformin 1000 bid and Trulicity weekly and these will be continued. The elevated hemoglobin A1 c point to highly uncontrolled diabetes. She will continue to need med adjustment and I also recommend a follow up with endocrinology on outpatient basis. Additional will have visiting nurse do more teaching a the house Time Spent with Patient Time attestation: Total time managing care of this patient today ____ minutes. Discharge coordination time: Greater than 30 minutes Quality: Safe Use of Opioids Does Pt have an Active Cancer Diagnosis on the Problem List?: No Quality: Stroke Does the patient have a stroke diagnosis?: No Physical Exam Vital Signs: Vital Signs: Last Vital Signs Temp 96.9 F 11/12/22 07:32 Pulse 82 11/12/22 07:32 Resp 20 11/12/22 07:32 BP 153/84 H 11/12/22 06:00 Pulse Ox 92 11/12/22 02:54 O2 Del Method 11/12/22 02:54 BMI result Body Mass Index 37.4 Const: Other: General: AO X 3, no acute distress Resp: CTA bilateral CVS: S1,S2,RRR GI: +BS, NT, no distention Skin: No rash Neuro: motor grossly intact Psych: appropriate affect DS: Data Data Completed and Pending Labs on day of discharge: Laboratory Results - last 24 hr 11/11/22 11/11/22 11/11/22 12:38 16:22 20:44 POC Glucose 326 H 389 H* 390 H* 11/12/22 07:30 POC Glucose 297 H Discharge Plan Discharge Anticipated Discharge Date/Time: 11/15/22 12:07 Patient Disposition: Home Health Service Discharge Diagnosis: Sycnope, hyperglycemia, nasal fracture Referrals: Eric Turcios MD [Physician] - 1 Week (Assessment for diabetes management) Renan Cabral MD [Primary Care Provider] - 1 Week Discharge Medications: New (DME) FreeStyle Lite Strips Strip Qty: 100 0RF Rx Instructions: Test four times a day or as directed. (DME) blood-glucose meter [FreeStyle Lite Meter] Kit Qty: 1 0RF Rx Instructions: As Directed alcohol swabs Pads, Medicated 1 pad TOPICAL QIDACHS Qty: 100 0RF Rx Instructions: Use four times a day or as directed. insulin lispro [Humalog KwikPen Insulin] 100 unit/mL insulin pen 1 sliding scale dose SUBCUT QIDACHS Qty: 15 0RF Rx Instructions: Blood Sugar: <150 - 0 units 151-200 - 4 units 201-250 - 6 units 251-300 - 8 units 301-350 - 12 units >350 - 15 units > 350, call your Doctor insulin glargine [Lantus Solostar U-100 Insulin] 100 unit/mL (3 mL) insulin pen 40 unit SUBCUT DAILY Qty: 15 0RF (DME) pen needle, diabetic 32 gauge x 1/4 needle Qty: 100 0RF Rx Instructions: Use four times a day or as directed. (DME) lancets [FreeStyle Lancets] 28 gauge misc Qty: 100 0RF Rx Instructions: Test four times a day or as directed. Continued amlodipine 10 mg tablet 10 mg PO DAILY 90 Days Qty: 90 1RF ezetimibe [Zetia] 10 mg tablet 10 mg PO DAILY 90 Days Qty: 90 1RF atorvastatin 80 mg tablet 80 mg PO DAILY Qty: 90 1RF albuterol sulfate 2.5 mg /3 mL (0.083 %) solution for nebulization 2.5 mg inhalation Q4H PRN (Reason: shortness of breath or wheezing) 30 Days Qty: 180 11RF albuterol sulfate [Ventolin HFA] 90 mcg/actuation HFA aerosol inhaler 2 puff inhalation QID PRN (Reason: shortness of breath or wheezing) 30 Days Qty: 18 11RF fluticasone propion-salmeterol [Advair Diskus] 250-50 mcg/dose blister with device 1 inh inhalation Q12H 30 Days Qty: 60 11RF metoprolol succinate [Toprol XL] 25 mg tablet extended release 24 hr 25 mg PO DAILY Qty: 90 4RF nitroglycerin 0.4 mg tablet, sublingual 0.4 mg sublingual Q5M Qty: 25 5RF pregabalin 200 mg capsule 1 cap PO BID Trulicity 1.5 mg/0.5 mL pen injector 1.5 mg subcut QWEEK simethicone 180 mg capsule 180 mg PO QID PRN (Reason: Abdominal Pain) Rx Instructions: after meals aspirin 81 mg tablet,delayed release (DR/EC) 81 mg PO DAILY amitriptyline 100 mg tablet 200 mg PO BEDTIME cyanocobalamin (vitamin B-12) 1,000 mcg tablet 1,000 mcg PO DAILY [id number] 50-325-40 mg tablet 1 tab PO TID PRN (Reason: Pain) mirtazapine 45 mg tablet 45 mg PO BEDTIME cholecalciferol (vitamin D3) 50 mcg (2,000 unit) capsule 50 mcg PO DAILY trazodone 100 mg tablet 100 mg PO BEDTIME topiramate 100 mg tablet 100 mg PO BID Incruse Ellipta 62.5 mcg/actuation blister with device 1 inh PO DAILY 30 Days Qty: 30 11RF epinephrine 0.3 mg/0.3 mL auto-injector 3 mg IM DIRECTED celecoxib 200 mg capsule 200 mg PO DAILY cetirizine 10 mg tablet 10 mg PO BEDTIME metformin 500 mg tablet extended release 24 hr 1,000 mg PO QAM clonazepam 1 mg tablet 1 mg PO BID PRN (Reason: Anxiety) senna 8.6 mg capsule 17.2 mg PO BEDTIME 30 Days Qty: 60 4RF venlafaxine 37.5 mg capsule,extended release 24hr 37.5 mg PO DAILY (DME) lancets [TRUEplus Lancets] 33 gauge misc See Rx Instructions .ROUTE BID Qty: 100 Rx Instructions: As directed omeprazole 40 mg capsule,delayed release(DR/EC) 40 mg PO BID 30 Days Qty: 60 4RF sucralfate 1 gram tablet 2 g PO DAILY 90 Days Qty: 180 1RF metoclopramide HCl 5 mg tablet 5 mg PO TID Qty: 90 4RF Discharge Orders: Discharge Order (Routine); Ordered 11/15/22 Ordered By: Montrell Mac Diet: Advance to usual diet Activity on Discharge: As tolerated Stand Alone Forms: Patient Portal Discharge page Care Plan Goals: Full recovery from syncope Health Concerns: uncontrolled diabetes, syncope, nasal bone fracture Plan of Treatment: follow up with your doctor in a week take your diabetes medication as directed check your sugars before meals and at bedtime Assessment: as above Discharge Date/Time: 11/15/22 17:15
[2022-11-15 08:00] VITALS: BP 154/73; PULSE 90; RESP 20; O2SAT 94
[2022-11-15 08:34] LABS: Glucose, Whole Blood 253 mg/dL (60-115)
[2022-11-15] MEDS: Insulin Glargine,Hum.rec.anlog 100 UNIT/ML 10 ML VIAL 20 UNIT SUBCUT (08:57)
[2022-11-15] MEDS: Insulin Lispro 100 UNIT/ML 3 ML VIAL SUBCUT ×4 (08:57→11:25)
[2022-11-15] MEDS: Metoclopramide HCl 5 MG TABLET PO (08:58)
[2022-11-15] MEDS: metFORMIN HCl ER 500 MG TAB.ER.24H 1000 MG PO (08:58)
[2022-11-15] MEDS: Topiramate 100 MG TABLET PO (08:58)
[2022-11-15] MEDS: Cyanocobalamin (Vitamin B-12) 1,000 MCG TABLET 1000 MCG PO (08:58)
[2022-11-15] MEDS: Cholecalciferol (Vitamin D3) 25 MCG TABLET 50 MCG PO (08:58)
[2022-11-15] MEDS: Pregabalin 200 MG CAPSULE PO (08:58)
[2022-11-15] MEDS: 0.9 % Sodium Chloride Flush 3 ML SYRINGE IVFLUSH (08:58)
[2022-11-15] MEDS: Celecoxib 200 MG CAPSULE PO (08:59)
[2022-11-15] MEDS: Aspirin Enteric Coated 81 MG TABLET.DR PO (08:59)
[2022-11-15] MEDS: amLODIPine Besylate 10 MG TABLET PO (08:59)
[2022-11-15] MEDS: Sucralfate 1 GM TABLET 2 GM PO (08:59)
[2022-11-15] MEDS: Metoprolol Succinate ER 25 MG TAB.ER.24H PO (08:59)
[2022-11-15] MEDS: Venlafaxine HCl ER 37.5 MG CAP.ER.24H PO (08:59)
[2022-11-15] MEDS: Ezetimibe 10 MG TABLET PO (08:59)
[2022-11-15] MEDS: polyethylene glycoL 3350 17 GM POWD.PACK PO (09:00)
[2022-11-15] MEDS: Insulin Glargine,Hum.rec.anlog 100 UNIT/ML 10 ML VIAL 10 UNIT SUBCUT (09:18)
[2022-11-15 11:15] LABS: Glucose, Whole Blood 309 mg/dL (60-115)
[2022-11-15 11:59] VITALS: BP 151/84; PULSE 79; RESP 18; TEMP 36.1; O2SAT 94
--- NOTE | 2022-11-15 12:07 | W.MHC.F2F ---
Service Date Service Date: 11/15/22 Encounter Date of encounter: 11/15/22 Reasons for Services Signs and symptoms assessed: Fall syncope, hyperglycemia Reason for retirement: medication management, medication treatment and teach disease management Homebound: Leaving the home is medically contraindicated at this time without the asist of a device and/or another person due th the listed conditions above and below. Reason homebound: unsteady gait / fall risk Homebound supporting statement: Homebound due to fall risk, recent syncope related to uncontrolled diabetes and needs the help of another person Certification: Based on the above findings, I certify that this patient is confined to the home and needs intermittent retirement care, physical therapy and/or speech therapy, or continues to need occupational therapy. The patient is under my care, and I have initiated the establishment of the plan of care. The patient will be followed by a physician who will periodically review the plan of care. Time Spent With Patient Time: Total time managing care of this patient today ____ minutes.
[2022-11-15 17:10] LABS: Glucose, Whole Blood 138 mg/dL (60-115)
== END 2022-11-15 17:15 | disposition home health service (06) ==
LOC: HO.ED 20:18 → HO.EDOVER 11-11 02:39 → HO.IMC 11-11 11:08
PROVIDERS: Nurse Practitioner Family; Student in an Organized Health Care Education/Training Program; Admitting Provider Internal Medicine; Emergency Provider Student in an Organized Health Care Education/Training Program; PCP Internal Medicine; Visit Provider Internal Medicine
DX: R55 Syncope and collapse (principal); E11.65 Type 2 diabetes mellitus with hyperglycemia; S02.2XXA Fracture of nasal bones, initial encounter for closed fracture; W10.8XXA Fall (on) (from) other stairs and steps, initial encounter; I25.10 Atherosclerotic heart disease of native coronary artery without angina pectoris; G89.29 Other chronic pain; R10.31 Right lower quadrant pain; I10 Essential (primary) hypertension; E78.5 Hyperlipidemia, unspecified; G47.33 Obstructive sleep apnea (adult) (pediatric); K22.70 Barrett's esophagus without dysplasia; K21.9 Gastro-esophageal reflux disease without esophagitis; J98.4 Other disorders of lung; J45.909 Unspecified asthma, uncomplicated; Y93.89 Activity, other specified; Y92.018 Other place in single-family (private) house as the place of occurrence of the external cause; Y99.9 Unspecified external cause status; Z20.822 Contact with and (suspected) exposure to COVID-19; Z79.899 Other long term (current) drug therapy; Z79.85 Long-term (current) use of injectable non-insulin antidiabetic drugs; Z79.02 Long term (current) use of antithrombotics/antiplatelets; Z79.82 Long term (current) use of aspirin; Z79.84 Long term (current) use of oral hypoglycemic drugs
CPT/HCPCS: 12013; 36415; 70450; 70486; 72125; 74230; 80053; 81001; 82009; 82803; 82947; 83036; 83690; 83735; 84484; 85025; 87502; 87635; 92610; 92611; 93005; 93306; 94640; 96360; 96361; 96372; 97116; 97162; 99215; 99222; 99285; J1650; Q9957

== ENCOUNTER → 2022-11-18 13:55 | Outpatient (REF) | payer MEDICARE, MEDICAID, SELFPAY | LOC: HO.CARD 13:55 | PROVIDERS: Visit Provider Internal Medicine | DX: I44.30 Unspecified atrioventricular block (principal); R55 Syncope and collapse | CPT/HCPCS: 93270 ==

== ENCOUNTER 2022-12-03 16:07 | Outpatient (REF) | payer MEDICARE, MEDICAID, SELFPAY ==
--- NOTE | ~2022-12-03 | XR_ITS ---
EXAMINATION: XR KNEE, BILATERAL XR KNEE, RIGHT XR KNEE, LEFT CLINICAL INFORMATION: Pain in the knee. COMPARISON: 04/15/2019 TECHNIQUE: Frontal standing view of both knees. Lateral and sunrise view of the right knee. Lateral and sunrise view of the left knee. FINDINGS: Right knee: No fracture or subluxation. Mild medial compartment joint space narrowing. Small tricompartmental marginal osteophytes. Minimal chondrocalcinosis at the lateral compartment. No joint effusion. Left knee: No acute fracture or subluxation. Moderate medial compartment joint space narrowing. Tricompartmental marginal osteophytes which are greatest at the medial compartment. These have progressed since prior. No joint effusion. XR/XR knee RT 2V IMPRESSION: Tricompartmental degenerative changes of both knees, greatest at the medial compartment of the left knee. This has progressed since the prior study.
--- NOTE | ~2022-12-03 | XR_ITS ---
EXAMINATION: XR KNEE, BILATERAL XR KNEE, RIGHT XR KNEE, LEFT CLINICAL INFORMATION: Pain in the knee. COMPARISON: 04/15/2019 TECHNIQUE: Frontal standing view of both knees. Lateral and sunrise view of the right knee. Lateral and sunrise view of the left knee. FINDINGS: Right knee: No fracture or subluxation. Mild medial compartment joint space narrowing. Small tricompartmental marginal osteophytes. Minimal chondrocalcinosis at the lateral compartment. No joint effusion. Left knee: No acute fracture or subluxation. Moderate medial compartment joint space narrowing. Tricompartmental marginal osteophytes which are greatest at the medial compartment. These have progressed since prior. No joint effusion. XR/XR knee standing BI IMPRESSION: Tricompartmental degenerative changes of both knees, greatest at the medial compartment of the left knee. This has progressed since the prior study.
--- NOTE | ~2022-12-03 | XR_ITS ---
EXAMINATION: XR KNEE, BILATERAL XR KNEE, RIGHT XR KNEE, LEFT CLINICAL INFORMATION: Pain in the knee. COMPARISON: 04/15/2019 TECHNIQUE: Frontal standing view of both knees. Lateral and sunrise view of the right knee. Lateral and sunrise view of the left knee. FINDINGS: Right knee: No fracture or subluxation. Mild medial compartment joint space narrowing. Small tricompartmental marginal osteophytes. Minimal chondrocalcinosis at the lateral compartment. No joint effusion. Left knee: No acute fracture or subluxation. Moderate medial compartment joint space narrowing. Tricompartmental marginal osteophytes which are greatest at the medial compartment. These have progressed since prior. No joint effusion. XR/XR knee LT 2V IMPRESSION: Tricompartmental degenerative changes of both knees, greatest at the medial compartment of the left knee. This has progressed since the prior study.
== END 2022-12-03 16:08 | disposition home or self-care (01) ==
LOC: HO.HOSX 16:07
PROVIDERS: Visit Provider Physician Assistant
DX: M17.0 Bilateral primary osteoarthritis of knee (principal)
CPT/HCPCS: 20610; 73560; 73565; 99212; J1020

== ENCOUNTER 2023-01-15 10:30 | Outpatient (REF) | payer OTHER, SELFPAY ==
--- NOTE | ~2023-01-15 | XR_ITS ---
EXAMINATION: XR HIP, RIGHT CLINICAL INFORMATION: Right groin pain. COMPARISON: None TECHNIQUE: Two views of the right hip. FINDINGS: Mild right hip degenerative joint changes are seen. There is no acute fracture or dislocation. The visualized right hemipelvis is intact. The soft tissues are unremarkable. XR/XR hip RT min 2V IMPRESSION: Mild right hip osteoarthritis. No acute fracture.
--- NOTE | ~2023-01-15 | XR_ITS ---
EXAMINATION: XR RIBS, RIGHT, CHEST 1 VIEW CLINICAL INFORMATION: Chest and right rib pain. COMPARISON: None TECHNIQUE: 3 views of the right ribs were obtained along with a PA view of the chest. A skin marker overlies the inferior right ribs. FINDINGS: Lungs are clear. No consolidation, pneumothorax, or pleural effusion. The cardiomediastinal silhouette and pulmonary vasculature are normal. Osseous structures are unremarkable. Ribs are intact. No fractures are identified. XR/XR ribs RT min 3V w CXR1V IMPRESSION: Unremarkable examination.
== END 2023-01-15 10:31 | disposition home or self-care (01) ==
LOC: HO.XRAY 10:30
PROVIDERS: Absent Provider Internal Medicine; PCP Internal Medicine; Visit Provider Registered Nurse
DX: R10.31 Right lower quadrant pain (principal); R07.81 Pleurodynia
CPT/HCPCS: 71101; 73502

== ENCOUNTER 2023-01-16 12:59 | Emergency (ER) | payer OTHER, SELFPAY ==
--- NOTE | 2023-01-16 13:37 | ED.EXTPRO ---
HPI - Extremity Problem General Chief complaint: Extremity Injury, Lower <GREGORY Presley - Last Filed: 01/16/23 13:43> Stated complaint: R side hip/rib pain <GREGORY Presley - Last Filed: 01/16/23 13:43> Time Seen by Provider: 01/16/23 13:44 <GREGORY Presley - Last Filed: 01/16/23 13:43> Source: patient, family (daughter) and translator interpreter <GREGORY Pollard - Last Filed: 01/17/23 11:20> Mode of arrival: ambulatory <GREGORY Pollard Last Filed: 01/17/23 11:20> Limitations: language barrier <GREGORY Pollard Last Filed: 01/17/23 11:20> History of Present Illness HPI Narrative: Patient is a 67 year old assigned female at with a history of asthma and GERD presenting to the emergency department today with right sided hip pain and rib pain. Patient states that she had fallen a while ago but continues to have right hip and right rib pain. Patient denies hitting her head when she fell or any loss of consciousness.Patient denies any dizziness, lightheadedness, abdominal pain, nausea, vomiting, fever, chills, blurry vision, double vision, loss of vision, chest pain, difficulty breathing, shortness of breath, back pain, night sweats, pain with urination, increased urinary frequency, increased urinary urgency, blood in her urine or stool, syncope or a near syncopal episode, bowel incontinence, bladder incontinence, bowel retention, bladder retention, or any other complaints at this time. <GREGORY Pollard - Last Filed: 01/17/23 11:20> Onset (ago): day(s) <GREGORY Pollard - Last Filed: 01/17/23 11:20> Pain Consistency: constant <GREGORY Pollard Last Filed: 01/17/23 11:20> Location: right <GREGORY Pollard - Last Filed: 01/17/23 11:20> Severity scale (1-10): 3 <GREGORY Pollard Last Filed: 01/17/23 11:20> Quality: aching and dull <GREGORY Pollard - Last Filed: 01/17/23 11:20> Radiation: none <GREGORY Pollard - Last Filed: 01/17/23 11:20> Relieving factors: nothing <GREGORY Pollard - Last Filed: 01/17/23 11:20> Exacerbating factors: nothing <GREGORY Pollard - Last Filed: 01/17/23 11:20> Associated symptoms: denies other symptoms <GREGORY Pollard - Last Filed: 01/17/23 11:20> Related Data Home medications: Home Medications Medication Instructions Recorded Confirmed amitriptyline 100 mg tablet 200 mg PO BEDTIME 10/29/20 11/10/22 aspirin 81 mg tablet,delayed 81 mg PO DAILY 10/29/20 11/10/22 release ryegyvsdxg-pujjzgjarucdo-uwvybbkb 1 tab PO TID PRN Pain 10/29/20 11/10/22 50 mg-325 mg-40 mg tablet cholecalciferol (vitamin D3) 50 50 mcg PO DAILY 10/29/20 11/10/22 mcg (2,000 unit) capsule cyanocobalamin (vitamin B-12) 1,000 mcg PO DAILY 10/29/20 11/10/22 1,000 mcg tablet mirtazapine 45 mg tablet 45 mg PO BEDTIME 10/29/20 11/10/22 trazodone 100 mg tablet 100 mg PO BEDTIME 10/29/20 11/10/22 topiramate 100 mg tablet 100 mg PO BID 07/16/21 11/10/22 epinephrine 0.3 mg/0.3 mL 3 mg IM DIRECTED anaphylaxis 01/30/22 11/10/22 injection, auto-injector celecoxib 200 mg capsule 200 mg PO DAILY 05/05/22 11/10/22 cetirizine 10 mg tablet 10 mg PO BEDTIME 05/05/22 11/10/22 lancets 33 gauge (TRUEplus Lancets) #100 ea 08/12/22 11/11/22 venlafaxine 37.5 mg 37.5 mg PO DAILY 08/12/22 11/10/22 capsule,extended release 24 hr clonazepam 1 mg tablet 1 mg PO BID PRN Anxiety 10/28/22 11/10/22 metformin 500 mg tablet,extended 1,000 mg PO QAM 10/28/22 11/10/22 release 24 hr dulaglutide 1.5 mg/0.5 mL 1.5 mg subcut QWEEK 11/10/22 11/10/22 subcutaneous pen injector (Trulicity) pregabalin 200 mg capsule 1 cap PO BID 11/10/22 11/10/22 simethicone 180 mg capsule 180 mg PO QID PRN Abdominal Pain 11/10/22 11/10/22 Previous Rx's Medication Instructions Recorded amlodipine 10 mg tablet 10 mg PO DAILY 90 days #90 tabs 09/17/20 ezetimibe 10 mg tablet (Zetia) 10 mg PO DAILY 90 days #90 tabs 09/26/20 umeclidinium 62.5 mcg/actuation 1 inh PO DAILY 30 days #30 caps 02/01/21 blister powder for inhalation (Incruse Ellipta) atorvastatin 80 mg tablet 80 mg PO DAILY #90 tabs 04/01/21 albuterol sulfate 2.5 mg/3 mL 2.5 mg (3 mL) inhalation Q4H PRN 01/03/22 (0.083 %) solution for nebulization shortness of breath or wheezing 30 days #180 mL albuterol sulfate 90 mcg/actuation 2 puff inhalation QID PRN 01/03/22 aerosol inhaler (Ventolin HFA) shortness of breath or wheezing 30 days #18 grams metoprolol succinate 25 mg 25 mg PO DAILY #90 tabs 01/03/22 tablet,extended release 24 hr (Toprol XL) sennosides 8.6 mg capsule (senna) 17.2 mg PO BEDTIME constipation 30 07/16/22 days #60 caps metoclopramide HCl 5 mg tablet 5 mg PO TID #90 tabs 08/12/22 omeprazole 40 mg capsule,delayed 40 mg PO BID 30 days #60 caps 08/12/22 release sucralfate 1 gram tablet 2 g PO DAILY 90 days #180 tabs 08/12/22 nitroglycerin 0.4 mg sublingual 0.4 mg sublingual Q5M #25 tabs 08/14/22 tablet alcohol swabs 1 pad topical QIDACHS #100 ea 11/15/22 blood sugar diagnostic (FreeStyle #100 ea 11/15/22 Lite Strips) blood-glucose meter (FreeStyle #1 ea 11/15/22 Lite Meter kit) insulin glargine 100 unit/mL (3 40 unit (0.4 mL) subcut DAILY #15 11/15/22 mL) subcutaneous pen (Lantus mL Solostar U-100 Insulin) insulin lispro 100 unit/mL 1 sliding scale dose subcut 11/15/22 subcutaneous pen (Humalog KwikPen QIDACHS #15 mL (U-100) Insulin) lancets 28 gauge (FreeStyle #100 ea 11/15/22 Lancets) pen needle, diabetic 32 gauge x #100 ea 11/15/22 1/4 fluticasone 250 mcg-salmeterol 50 1 ea PO Q12H #60 ea 01/08/23 mcg/dose blistr powdr for inhalation (Advair Diskus) cyclobenzaprine 5 mg tablet 5 mg PO TID PRN right rib pain 7 01/16/23 days #21 tabs <GREGORY Presley - Last Filed: 01/16/23 13:43> Allergies/Adverse reactions: Allergies Allergy/AdvReac Type Severity Reaction Status Date / Time bee pollen [BEE STINGS] Allergy Unknown ANAPHYLAXIS Verified 12/03/22 13:04 morphine [MORPHINE] Allergy Unknown ITCHING Verified 12/03/22 13:04 <GREGORY Presley Last Filed: 01/16/23 13:43> Review of Systems Constitutional: Constitutional: Reports no additional constitutional complaints, Denies chills, Denies fever(s) and Denies night sweats <GREGORY Pollard Last Filed: 01/17/23 11:20> Eyes: Eyes: Reports no additional eye complaints, Denies blurry vision, Denies change in vision, Denies diplopia, Denies eye discharge, Denies loss of vision and Denies eye pain <GREGORY Pollard Last Filed: 01/17/23 11:20> ENT: Denies dizziness <GREGORY Pollard Last Filed: 01/17/23 11:20> Cardiovascular: Cardiovascular: Reports no additional cardiovascular complaints, Denies chest pain, Denies lightheadedness, Denies Loss of Consciousness and Denies dyspnea <GREGORY Pollard Last Filed: 01/17/23 11:20> Respiratory: Respiratory: Reports no additional respiratory complaints and Denies dyspnea <GREGORY Pollard Last Filed: 01/17/23 11:20> Gastrointestinal: Gastrointestinal: Reports no additional gastrointestinal complaints, Denies abdominal pain, Denies melena, Denies hematochezia, Denies change in bowel habits and Denies change in stool character <GREGORY Pollard Last Filed: 01/17/23 11:20> Genitourinary: Genitourinary: Denies hematuria, Denies urinary frequency, Denies dysuria, Denies urinary incontinence, Denies urinary hesitancy and Denies urinary urgency <GREGORY Pollard - Last Filed: 01/17/23 11:20> Musculoskeletal: Musculoskeletal: Reports no additional musculoskeletal complaints, Denies numbness and Denies tingling <GREGORY Pollard Last Filed: 01/17/23 11:20> Comments: right sided hip pain and right sided rib pain <GREGORY Pollard - Last Filed: 01/17/23 11:20> Neurologic: Denies dizziness, Denies loss of vision, Denies numbness and Denies tingling <GREGORY Pollard Last Filed: 01/17/23 11:20> Psychiatric: Psychiatric: Reports no additional psychiatric complaints <GREGORY Pollard Last Filed: 01/17/23 11:20> Endocrine: Endocrine: Reports no additional endocrine complaints <GREGORY Pollard Last Filed: 01/17/23 11:20> Hematologic/Lymphatic: Hematologic/Lymphatic: Reports no additional hematologic/lymphatic complaints <GREGORY Pollard - Last Filed: 01/17/23 11:20> Allergic/Immunologic: Allergic/Immunologic: Reports no additional allergic/immunologic complaints <GREGORY Pollard Last Filed: 01/17/23 11:20> PMFSH Past Medical History Attestation statement: The following information was validated with the patient. (all information validated with the patient's daughter) <GREGORY Pollard Last Filed: 01/17/23 11:20> Source: old records reviewed, obtained from family (patient's daughter) and nursing notes reviewed <GREGORY Pollard Last Filed: 01/17/23 11:20> Medical History: Medical History Asthma Atherosclerotic cardiovascular disease Chronic allergic rhinitis Chronic restrictive lung disease Essential hypertension EDWIN on CPAP Other and unspecified hyperlipidemia Type 2 diabetes mellitus with unspecified complications <GREGORY Presley - Last Filed: 01/16/23 13:43> Surgical History: Surgical History History of esophagogastroduodenoscopy (EGD) Hx of colonoscopy <GREGORY Presley - Last Filed: 01/16/23 13:43> Family History Family History: Family History Mother HTN (hypertension) Heart disease Asthma Maternal Aunt Breast cancer Maternal Aunt Tumor Maternal Aunt Cancer <GREGORY Presley - Last Filed: 01/16/23 13:43> Social History Social History: Social History Household Members: Spouse and Family Household Members Other:: 4 household members Housing: Apartment Do you presently have visiting nurse or other home services: No Alcohol intake: unknown Patient Tobacco Use Status: Never used Tobacco Advance Directives: Yes Advance Directives Information Provided: No Advance Directives on File: No service: No <GREGORY Presley - Last Filed: 01/16/23 13:43> Physical Exam Vital Signs: Vital Signs: Last Vital Signs Temp 97.3 F 01/16/23 13:38 Pulse 92 01/16/23 13:38 Resp 18 01/16/23 13:38 BP 183/87 H 01/16/23 13:38 Pulse Ox 95 01/16/23 13:38 O2 Del Method 01/16/23 13:38 BMI result Body Mass Index 35.5 <GREGORY Presley - Last Filed: 01/16/23 13:43> Vital Signs: Last Vital Signs Temp 97.3 F 01/16/23 13:38 Pulse 92 01/16/23 13:38 Resp 18 01/16/23 13:38 BP 183/87 H 01/16/23 13:38 Pulse Ox 95 01/16/23 13:38 O2 Del Method 01/16/23 13:38 BMI result Body Mass Index 35.5 <Miley Guerrero, PA - Last Filed: 01/17/23 11:20> Const: General: cooperative, no acute distress, alert and awake <Miley Guerrero MO - Last Filed: 01/17/23 11:20> Nutritional Appearance: well nourished <Mileymadelyn Cidjoslyn MO - Last Filed: 01/17/23 11:20> Orientation/consciousness: patient oriented x3 <Miley Guerrero MO - Last Filed: 01/17/23 11:20> Limitations: no limitations <Miley Guerrero MO - Last Filed: 01/17/23 11:20> HEENT: Head: Yes normal to inspection and Yes atraumatic <Miley Guerrero MO - Last Filed: 01/17/23 11:20> Ears: hearing grossly normal bilaterally and external ears normal <Mileymadelyn Cidjoslyn MO - Last Filed: 01/17/23 11:20> General nose exam: Normal external nose present, no nasal discharge noted and no epistaxis <Miley Guerrero MO - Last Filed: 01/17/23 11:20> Face and sinus: Yes normal facial exam, No abrasion and No laceration <Miley Guerrero MO - Last Filed: 01/17/23 11:20> Mouth: Normal oral and palatal mucosa present, no drooling and no muffled voice <Miley Guerrero MO - Last Filed: 01/17/23 11:20> Eyes: General: appearance normal, both eyes and all related structures <Miley Guerrero MO - Last Filed: 01/17/23 11:20> Periorbital: periorbital findings normal <Miley Guerrero MO - Last Filed: 01/17/23 11:20> Eyelids: Yes eyelids normal <Miley Guerrero PA - Last Filed: 01/17/23 11:20> Conjunctivae: conjunctivae normal <Miley Guerrero PA - Last Filed: 01/17/23 11:20> Pupils: Equal, round and reactive pupils present <Miley Guerrero PA - Last Filed: 01/17/23 11:20> EOM: EOMs intact bilaterally <Miley Guerrero MO - Last Filed: 01/17/23 11:20> Neck: Neck: Yes normal visual inspection, Yes full ROM and Yes no lymphadenopathy <Miley Guerrero MO - Last Filed: 01/17/23 11:20> Chest: Chest palpation & inspection: normal inspection of the chest <Miley GuerreroGREGORY - Last Filed: 01/17/23 11:20> Resp: Effort & Inspection: normal respiratory effort and able to speak in complete sentences <Miley Guerrero MO - Last Filed: 01/17/23 11:20> Auscultation: clear to auscultation bilaterally <Miley Guerrero MO - Last Filed: 01/17/23 11:20> Cardio: Rate: regular rate <Miley Guerrero MO - Last Filed: 01/17/23 11:20> Rhythm: regular rhythm <Miley Guerrero MO - Last Filed: 01/17/23 11:20> GI: Inspection: Yes normal to inspection <Miley Guerrero MO - Last Filed: 01/17/23 11:20> Palpation (GI): Soft to palpation, not firm, nontender, no guarding and not rigid <Miley Guerrero MO - Last Filed: 01/17/23 11:20> Neuro: General: patient oriented x3 and moves all extremities <Miley Guerrero MO - Last Filed: 01/17/23 11:20> Cranial nerves: Yes Equal, round and reactive pupils present <Miley Guerrero MO - Last Filed: 01/17/23 11:20> Cognition (Neuro): normal cognition <Miley Guerrero MO - Last Filed: 01/17/23 11:20> Motor exam (neuro): 5/5 motor strength present throughout <Miley Guerrero MO - Last Filed: 01/17/23 11:20> Sensory Exam: Normal double simultaneous stimulation for sensation <Miley Guerrero MO - Last Filed: 01/17/23 11:20> Coordination: buofwy-ja-meoc test normal <Miley Guerrero MO - Last Filed: 01/17/23 11:20> Extrem: General: Yes normal to inspection, Yes full ROM and Yes capillary refill normal <Miley Cidjoslyn MO - Last Filed: 01/17/23 11:20> Psych: Appearance: grossly normal <Miley CidGREGORY jorgensen - Last Filed: 01/17/23 11:20> Mental Status: mental status grossly normal <GREGORY Pollard - Last Filed: 01/17/23 11:20> Affect: normal affect <GREGORY oPllard - Last Filed: 01/17/23 11:20> Attitude: cooperative <GREGORY Pollard - Last Filed: 01/17/23 11:20> Thought process: Normal thought process present <GREGORY Pollard - Last Filed: 01/17/23 11:20> Thought content: Normal thought content present <GREGORY Pollard - Last Filed: 01/17/23 11:20> Insight: Good insight present (Psych) <GREGORY Pollard - Last Filed: 01/17/23 11:20> Course Course Course Narrative: RME - 67 yo female presents today with complaints of atraumatic right hip and right rib pain. No injury or falls. Was seen by PCP, Dr. Bates who ordered xrays yesterday. VSS stable in triage. Negative thomson's sign, rib tenderness on the lateral aspect of right ribs. Plan - Radiology to get xrays from yesterday read. Will need to f/u results for next step in treatment. <GERGORY Presley - Last Filed: 01/16/23 13:43> Medications Administered Discontinued Medications Generic Name Dose Route Start Last Admin Trade Name Freq PRN Reason Stop Dose Admin Cyclobenzaprine HCl 5 mg 01/16/23 13:55 01/16/23 14:03 Cyclobenzaprine Hcl 5 Mg Tablet PO 01/16/23 13:56 5 mg ONCE ONE Administration Ketorolac Tromethamine 15 mg 01/16/23 13:55 01/16/23 14:02 Ketorolac Tromethamine 15 Mg/Ml Vial IM 01/16/23 13:56 15 mg ONCE ONE Administration <GREGORY Presley - Last Filed: 01/16/23 13:43> Medications Administered Discontinued Medications Generic Name Dose Route Start Last Admin Trade Name Freq PRN Reason Stop Dose Admin Cyclobenzaprine HCl 5 mg 01/16/23 13:55 01/16/23 14:03 Cyclobenzaprine Hcl 5 Mg Tablet PO 01/16/23 13:56 5 mg ONCE ONE Administration Ketorolac Tromethamine 15 mg 01/16/23 13:55 01/16/23 14:02 Ketorolac Tromethamine 15 Mg/Ml Vial IM 01/16/23 13:56 15 mg ONCE ONE Administration <GREGORY Pollard Last Filed: 01/17/23 11:20> Medical Decision Making Medical Decision Making MDM Narrative: Patient is a 67 year old assigned female at with a history of GERD, DM, and HTN presenting to the emergency department today with right rib and right hip pain. Patient's physical exam was unremarkable. Patient's right ribs and right hip x-rays from 01/15/2023 showed no acute process. I explained my physical exam findings as well as all test results to the patient and the patient's daughter. I answered all questions asked by the patient and the patient's daughter. Patient received IM Toradol and PO Flexeril which she stated helped her symptoms significantly. Patient was given incentive spirometry with instructions on how to properly use the device as well as education on the importance of using the device to avoid the development of pneumonia. I stressed the importance of the patient taking her medication as prescribed. I stressed the importance of the patient following up with her primary care provider. I stressed the importance of the patient returning to the emergency department immediately if her symptoms were to worsen or if she were to develop any dizziness, shortness of breath, difficulty breathing, chest pain, blurry vision, loss of vision, nausea, vomiting, abdominal pain, fever, chills, back pain, or any other complaints. Patient and the patient's daughter verbalized agreement and understanding with this treatment plan and discharge. <GREGORY Pollard Last Filed: 01/17/23 11:20> Differential Diagnosis Differential Diagnoses: The differential diagnosis associated with the presentation includes <GREGORY Pollard Last Filed: 01/17/23 11:20> fall, right rib pain, right hip pain <GREGORY Pollard Last Filed: 01/17/23 11:20> Independent Interpretation I performed an independent interpretation of an: Plain X-Ray <GREGORY Pollard Last Filed: 01/17/23 11:20> Interpretation: My interpretation is in agreement with the radiologist's impression of these imaging studies. EXAMINATION: XR HIP, RIGHT CLINICAL INFORMATION: Right groin pain. COMPARISON: None TECHNIQUE: Two views of the right hip. FINDINGS: Mild right hip degenerative joint changes are seen. There is no acute fracture or dislocation. The visualized right hemipelvis is intact. The soft tissues are unremarkable.? XR/XR hip RT min 2V IMPRESSION: Mild right hip osteoarthritis. No acute fracture. Dictated By: Ehsan Rao MD Signed By: Electronically signed by Ehsan Rao MD 01/16/23 1344 EXAMINATION: XR RIBS, RIGHT, CHEST 1 VIEW CLINICAL INFORMATION: Chest and right rib pain. COMPARISON: None TECHNIQUE: 3 views of the right ribs were obtained along with a PA view of the chest. A skin marker overlies the inferior right ribs. FINDINGS: Lungs are clear. No consolidation, pneumothorax, or pleural effusion. The cardiomediastinal silhouette and pulmonary vasculature are normal. Osseous structures are unremarkable. Ribs are intact. No fractures are identified. XR/XR ribs RT min 3V w CXR1V IMPRESSION: Unremarkable examination. Dictated By: Ehsan Rao MD Signed By: Electronically signed by Ehsan Rao MD 01/16/23 1345 <GREGORY Pollard - Last Filed: 01/17/23 11:20> Independent Historian Clinical information obtained from an independent historian. History obtained from or confirmed by: Other (patienet's daughter) <GREGORY Pollard - Last Filed: 01/17/23 11:20> Chronic Conditions Patient?s care impacted by: Diabetes and Hypertension <GREGORY Pollard - Last Filed: 01/17/23 11:20> Discharge Plan Discharge Clinical Impression: Acute hip pain, Rib pain <GREGORY Presley Last Filed: 01/16/23 13:43> Patient Disposition: Home, Self-Care <GREGORY Presley Last Filed: 01/16/23 13:43> Instructions: Hip Pain (ED), Rib Contusion (ED) <GREGORY Presley - Last Filed: 01/16/23 13:43> Additional Instructions: Use your incentive spirometer as directed. Follow up with your primary care provider. Return to the emergency department immediately if your symptoms worsen or if you develop any dizziness, shortness of breath, difficulty breathing, chest pain, blurry vision, loss of vision, nausea, vomiting, abdominal pain, fever, chills, back pain, or any other complaints. Utilice vega espir?metro de incentivo seg?n las indicaciones. Ashley un seguimiento con vega proveedor de atenci?n primaria. Regrese a la josephine de emergencias de inmediato si bridgett s?ntomas empeoran o si presenta mareos, dificultad para respirar, dolor de pecho, visi?n borrosa, p?rdida de la visi?n, n?useas, v?mitos, dolor abdominal, fiebre, escalofr?os, dolor de espalda o cualquier otras quejas. <GREGORY Presley - Last Filed: 01/16/23 13:43> Prescriptions: New cyclobenzaprine 5 mg tablet 5 mg PO TID PRN (Reason: right rib pain) 7 Days Qty: 21 0RF No Action amlodipine 10 mg tablet 10 mg PO DAILY 90 Days Qty: 90 1RF ezetimibe [Zetia] 10 mg tablet 10 mg PO DAILY 90 Days Qty: 90 1RF atorvastatin 80 mg tablet 80 mg PO DAILY Qty: 90 1RF albuterol sulfate 2.5 mg /3 mL (0.083 %) solution for nebulization 2.5 mg inhalation Q4H PRN (Reason: shortness of breath or wheezing) 30 Days Qty: 180 11RF albuterol sulfate [Ventolin HFA] 90 mcg/actuation HFA aerosol inhaler 2 puff inhalation QID PRN (Reason: shortness of breath or wheezing) 30 Days Qty: 18 11RF metoprolol succinate [Toprol XL] 25 mg tablet extended release 24 hr 25 mg PO DAILY Qty: 90 4RF nitroglycerin 0.4 mg tablet, sublingual 0.4 mg sublingual Q5M Qty: 25 5RF fluticasone propion-salmeterol [Advair Diskus] 250-50 mcg/dose blister with device 1 ea PO Q12H Qty: 60 11RF pregabalin 200 mg capsule 1 cap PO BID Trulicity 1.5 mg/0.5 mL pen injector 1.5 mg subcut QWEEK simethicone 180 mg capsule 180 mg PO QID PRN (Reason: Abdominal Pain) Rx Instructions: after meals (DME) FreeStyle Lite Strips Strip Qty: 100 0RF Rx Instructions: Test four times a day or as directed. (DME) blood-glucose meter [FreeStyle Lite Meter] Kit Qty: 1 0RF Rx Instructions: As Directed alcohol swabs Pads, Medicated 1 pad TOPICAL QIDACHS Qty: 100 0RF Rx Instructions: Use four times a day or as directed. insulin lispro [Humalog KwikPen Insulin] 100 unit/mL insulin pen 1 sliding scale dose SUBCUT QIDACHS Qty: 15 0RF Rx Instructions: Blood Sugar: <150 - 0 units 151-200 - 4 units 201-250 - 6 units 251-300 - 8 units 301-350 - 12 units >350 - 15 units > 350, call your Doctor insulin glargine [Lantus Solostar U-100 Insulin] 100 unit/mL (3 mL) insulin pen 40 unit SUBCUT DAILY Qty: 15 0RF (DME) pen needle, diabetic 32 gauge x 1/4 needle Qty: 100 0RF Rx Instructions: Use four times a day or as directed. (DME) lancets [FreeStyle Lancets] 28 gauge misc Qty: 100 0RF Rx Instructions: Test four times a day or as directed. aspirin 81 mg tablet,delayed release (DR/EC) 81 mg PO DAILY amitriptyline 100 mg tablet 200 mg PO BEDTIME cyanocobalamin (vitamin B-12) 1,000 mcg tablet 1,000 mcg PO DAILY dtodunorfb-ovmirjttzgptn-ygzr 50-325-40 mg tablet 1 tab PO TID PRN (Reason: Pain) mirtazapine 45 mg tablet 45 mg PO BEDTIME cholecalciferol (vitamin D3) 50 mcg (2,000 unit) capsule 50 mcg PO DAILY trazodone 100 mg tablet 100 mg PO BEDTIME topiramate 100 mg tablet 100 mg PO BID Incruse Ellipta 62.5 mcg/actuation blister with device 1 inh PO DAILY 30 Days Qty: 30 11RF epinephrine 0.3 mg/0.3 mL auto-injector 3 mg IM DIRECTED celecoxib 200 mg capsule 200 mg PO DAILY cetirizine 10 mg tablet 10 mg PO BEDTIME metformin 500 mg tablet extended release 24 hr 1,000 mg PO QAM clonazepam 1 mg tablet 1 mg PO BID PRN (Reason: Anxiety) senna 8.6 mg capsule 17.2 mg PO BEDTIME 30 Days Qty: 60 4RF venlafaxine 37.5 mg capsule,extended release 24hr 37.5 mg PO DAILY (DME) lancets [TRUEplus Lancets] 33 gauge misc See Rx Instructions .ROUTE BID Qty: 100 Rx Instructions: As directed omeprazole 40 mg capsule,delayed release(DR/EC) 40 mg PO BID 30 Days Qty: 60 4RF sucralfate 1 gram tablet 2 g PO DAILY 90 Days Qty: 180 1RF metoclopramide HCl 5 mg tablet 5 mg PO TID Qty: 90 4RF <GREGORY Presley - Last Filed: 01/16/23 13:43> Referrals: Renan Cabral MD [Primary Care Provider] - <GREGORY Presley - Last Filed: 01/16/23 13:43> Interventions: ED Discharge Assessment Last Done: 01/16/23 14:16 <GREGORY Presley - Last Filed: 01/16/23 13:43> Discharge Date/Time: 01/16/23 14:18 <GREGORY Presley - Last Filed: 01/16/23 13:43> Print Language: Filipino <GREGORY Presley - Last Filed: 01/16/23 13:43>
[2023-01-16 13:38] VITALS: BP 183/87; PULSE 92; RESP 18; TEMP 36.3; O2SAT 95; BMI 35.5
[2023-01-16] MEDS: Ketorolac Tromethamine 15 MG/ML VIAL IM (14:02)
[2023-01-16] MEDS: Cyclobenzaprine HCl 5 MG TABLET PO (14:03)
== END 2023-01-16 14:18 | disposition home or self-care (01) ==
LOC: HO.ED 14:18
PROVIDERS: Emergency Provider Emergency Medicine; PCP Internal Medicine
DX: R07.81 Pleurodynia (principal); M25.551 Pain in right hip; J45.909 Unspecified asthma, uncomplicated; K21.9 Gastro-esophageal reflux disease without esophagitis; E11.8 Type 2 diabetes mellitus with unspecified complications; I10 Essential (primary) hypertension
CPT/HCPCS: 96372; 99283; 99284; J1885

== ENCOUNTER 2023-03-31 11:49 | Emergency (ER) | payer MEDICARE, SELFPAY ==
--- NOTE | ~2023-03-31 | XR_ITS ---
EXAMINATION: XR CHEST CLINICAL INFORMATION: Dizziness COMPARISON: None available. TECHNIQUE: Frontal view of the chest was obtained. FINDINGS: The lungs are well-expanded and clear. The heart size and pulmonary vascularity is normal. No gross bony abnormality seen. XR/XR chest 1V IMPRESSION: Unremarkable chest exam.
--- NOTE | ~2023-03-31 | CT_ITS ---
EXAMINATION: CT HEAD WITHOUT CONTRAST CLINICAL INFORMATION: Dizziness. Balance problem. COMPARISON: Previous head CT most recent November 2022 TECHNIQUE: Contiguous axial imaging was performed from the skull base to vertex without intravenous administration of contrast. This CT examination was performed using dose optimization techniques as appropriate, variously including the following: *Automated exposure control *Adjustment of mA and/or kV according to patient size (this includes techniques or standardized protocols for targeted exams where dose is matched to indication/reason for exam; i.e. extremities or head) *Use of iterative reconstruction technique DLP: 651 mGy-cm FINDINGS: There is no evidence of an extra-axial collection. There is no evidence of intra-axial or extra-axial hemorrhage. The ventricles and extra-axial CSF spaces are appropriate. Roper-white matter differentiation is normal. No mass, mass effect or infarct. No skull fracture. Question osteoma of the right parietal bone. This is similar to previous exams. Visualized paranasal sinuses, mastoid air cells and total ears are clear. CT/CT head/brain wo IV con IMPRESSION: No acute findings.
[2023-03-31 11:57] VITALS: BP 122/79; BP 126/82; PULSE 92; PULSE 95; RESP 16; TEMP 36.7; O2SAT 95; O2SAT 97; BMI 37.1
--- NOTE | 2023-03-31 11:58 | ED_ITS ---
HPI - General Adult General Chief complaint: Dizziness Stated complaint: DIZZY Time Seen by Provider: 03/31/23 12:56 Source: patient Mode of arrival: ambulatory Limitations: no limitations History of Present Illness HPI narrative: Patient comes to the emergency room complaining of dizziness. Patient states that at 6 in the morning, she woke up, went to the bathroom and noted that she was dizzy. Patient states that she feels off-balance, like she is rocking back and forth in a boat. Also complaining of lightheadedness. Patient denies visual changes, no headache, no chest pain or shortness of breath, complaining of nausea, no vomiting. Related Data Home Medications Medication Instructions Recorded Confirmed amitriptyline 100 mg tablet 200 mg PO BEDTIME 10/29/20 11/10/22 aspirin 81 mg tablet,delayed 81 mg PO DAILY 10/29/20 11/10/22 release [id number] 1 tab PO TID PRN Pain 10/29/20 11/10/22 50 mg-325 mg-40 mg tablet cholecalciferol (vitamin D3) 50 50 mcg PO DAILY 10/29/20 11/10/22 mcg (2,000 unit) capsule cyanocobalamin (vitamin B-12) 1,000 mcg PO DAILY 10/29/20 11/10/22 1,000 mcg tablet mirtazapine 45 mg tablet 45 mg PO BEDTIME 10/29/20 11/10/22 trazodone 100 mg tablet 100 mg PO BEDTIME 10/29/20 11/10/22 topiramate 100 mg tablet 100 mg PO BID 07/16/21 11/10/22 epinephrine 0.3 mg/0.3 mL 3 mg IM DIRECTED anaphylaxis 01/30/22 11/10/22 injection, auto-injector celecoxib 200 mg capsule 200 mg PO DAILY 05/05/22 11/10/22 cetirizine 10 mg tablet 10 mg PO BEDTIME 05/05/22 11/10/22 lancets 33 gauge (TRUEplus Lancets) #100 ea 08/12/22 11/11/22 venlafaxine 37.5 mg 37.5 mg PO DAILY 08/12/22 11/10/22 capsule,extended release 24 hr clonazepam 1 mg tablet 1 mg PO BID PRN Anxiety 12/20/22 01/02/23 metformin 500 mg tablet,extended 1,000 mg PO QAM 10/28/22 11/10/22 release 24 hr dulaglutide 1.5 mg/0.5 mL 1.5 mg subcut QWEEK 11/10/22 11/10/22 subcutaneous pen injector (Trulicity) pregabalin 200 mg capsule 1 cap PO BID 11/10/22 11/10/22 simethicone 180 mg capsule 180 mg PO QID PRN Abdominal Pain 11/10/22 11/10/22 Previous Rx's Medication Instructions Recorded amlodipine 10 mg tablet 10 mg PO DAILY 90 days #90 tabs 09/17/20 ezetimibe 10 mg tablet (Zetia) 10 mg PO DAILY 90 days #90 tabs 09/26/20 umeclidinium 62.5 mcg/actuation 1 inh PO DAILY 30 days #30 caps 02/01/21 blister powder for inhalation (Incruse Ellipta) atorvastatin 80 mg tablet 80 mg PO DAILY #90 tabs 04/01/21 albuterol sulfate 2.5 mg/3 mL 2.5 mg (3 mL) inhalation Q4H PRN 01/03/22 (0.083 %) solution for nebulization shortness of breath or wheezing 30 days #180 mL albuterol sulfate 90 mcg/actuation 2 puff inhalation QID PRN 01/03/22 aerosol inhaler (Ventolin HFA) shortness of breath or wheezing 30 days #18 grams sennosides 8.6 mg capsule (senna) 17.2 mg PO BEDTIME constipation 30 07/16/22 days #60 caps metoclopramide HCl 5 mg tablet 5 mg PO TID #90 tabs 08/12/22 omeprazole 40 mg capsule,delayed 40 mg PO BID 30 days #60 caps 08/12/22 release sucralfate 1 gram tablet 2 g PO DAILY 90 days #180 tabs 08/12/22 nitroglycerin 0.4 mg sublingual 0.4 mg sublingual Q5M #25 tabs 08/14/22 tablet alcohol swabs 1 pad topical QIDACHS #100 ea 11/15/22 blood sugar diagnostic (FreeStyle #100 ea 11/15/22 Lite Strips) blood-glucose meter (FreeStyle #1 ea 11/15/22 Lite Meter kit) insulin glargine 100 unit/mL (3 40 unit (0.4 mL) subcut DAILY #15 11/15/22 mL) subcutaneous pen (Lantus mL Solostar U-100 Insulin) insulin lispro 100 unit/mL 1 sliding scale dose subcut 11/15/22 subcutaneous pen (Humalog KwikPen QIDACHS #15 mL (U-100) Insulin) lancets 28 gauge (FreeStyle #100 ea 11/15/22 Lancets) pen needle, diabetic 32 gauge x #100 ea 11/15/22/ fluticasone 250 mcg-salmeterol 50 1 ea PO Q12H #60 ea 01/08/23 mcg/dose blistr powdr for inhalation (Advair Diskus) cyclobenzaprine 5 mg tablet 5 mg PO TID PRN right rib pain 7 01/16/23 days #21 tabs metoprolol succinate 25 mg 25 mg PO BEDTIME #90 tabs 03/02/23 tablet,extended release 24 hr meclizine 50 mg tablet 50 mg PO TID PRN motion sickness 03/31/23 #10 tabs Allergies Allergy/AdvReac Type Severity Reaction Status Date / Time bee pollen [BEE STINGS] Allergy Unknown ANAPHYLAXIS Verified 12/03/22 13:04 morphine [MORPHINE] Allergy Unknown ITCHING Verified 12/03/22 13:04 Review of Systems Review of Systems: Constitutional : No Weight loss, No Fever, No Chills, No Night Sweats, No Fatigue, No Malaise ENT/Mouth : No Hearing loss, No Ear Pain, No Nasal Congestion, No Sinus Pain, No Hoarseness, No sore throat, No Rhinorrhea, No Swallowing Difficulty Eyes: No Eye Pain, No Swelling, No Redness, No Foreign Body, No Discharge, No Vision Changes Cardiovascular : No Chest Pain, No SOB, No Dyspnea on Exertion, No Orthopnea, No Edema, No Palpitations Respiratory : No Cough, No Sputum, No Wheezing, No Smoke Exposure, No Dyspnea Gastrointestinal : No Nausea, No Vomiting, No Diarrhea, No Constipation, No abdominal Pain, No Hematochezia, No Melena Genitourinary : no irregular bleeding, No Dysuria, No Urinary Frequency, No Hematuria, No Urinary Incontinence, No Urgency, No Flank Pain, No Urinary Flow Changes, No Hesitancy Musculoskeletal : No joint pain, No Myalgias, No Joint Swelling Skin : No Skin Lesions, No rash Neuro : No Weakness, No Numbness, No Paresthesias, No Loss of Consciousness, no headache, complaining of dizziness, rocking in a boat sensation Psych : No Anxiety/Panic, No Depression, No SI/HI/AH/VH, No Social Issues, Heme/Lymph: No Bruising, No Bleeding,No Lymphadenopathy Endocrine : No Polyuria, No Polydipsia, No Temperature Intolerance [facility] Past Medical History Medical History Asthma Atherosclerotic cardiovascular disease Chronic allergic rhinitis Chronic restrictive lung disease Essential hypertension EDWIN on CPAP Other and unspecified hyperlipidemia Type 2 diabetes mellitus with unspecified complications Surgical History History of esophagogastroduodenoscopy (EGD) Hx of colonoscopy Family History Family History Mother HTN (hypertension) Heart disease Asthma Maternal Aunt Breast cancer Maternal Aunt Tumor Maternal Aunt Cancer Social History Social History Household Members: Spouse and Family Household Members Other:: 4 household members Housing: Apartment Do you presently have visiting nurse or other home services: No Alcohol intake: never Patient Tobacco Use Status: Never used Tobacco Smoked in Last 30 Days: No Use of substances other than those prescribed or required for medical reasons: No Advance Directives: Yes Advance Directives on File: No service: No Physical Exam ED Vital Signs: Vital Signs - 24 hr 03/31/23 11:57 03/31/23 13:43 03/31/23 13:48 Temperature 98.1 F Pulse Rate 92 82 96 Respiratory Rate 16 14 Blood Pressure 122/79 149/83 H 136/80 Pulse Oximetry 95 96 Oxygen Delivery Method Room Air Room Air 03/31/23 13:45 03/31/23 13:46 Temperature Pulse Rate 88 96 Respiratory Rate Blood Pressure 129/102 H 136/80 Pulse Oximetry Oxygen Delivery Method BMI result Body Mass Index 37.1 Const Other: Appearance: Alert. Oriented X3. No acute distress. Seems uncomfortable Eyes: Pupils equal, round and reactive to light. Mild horizontal nystagmus with head movement ENT: Pharynx normal. Neck: Normal inspection. Neck supple. No lymph nodes noted. No crepitus CVS: Normal heart rate and rhythm. Pulses normal. Normal S1 and S2 Respiratory: No respiratory distress. Breath sounds normal. No Wheezing. No rales Abdomen: Soft and nontender. No rigidity. No distention. Skin: Skin warm and dry. Normal skin color. Normal skin turgor. Extremities: No lower extremity edema. No Lacerations. No Rash Neuro: Oriented X 3. No motor deficit. No sensory deficit. Moving all extremities. No slurred speech. CN 2 through 12 grossly intact Psych: calm, cooperative, normal affect Course Course Course Narrative: RME: 66-year-old female with a PMHx significant for?CAD, asthma, Davis's esophagus, non insulin-dependent DM2, and GERD who presents to the ED via EMS from [facility] pharmacy, c/o headache & dizziness feeling like shes on a boat since this morning at 6AM. Also reports lightheadedness. denies CP/SOB, recent fall. takes ASA No focal neuro deficits, ambulating w/assistance into triage, no ataxia, VSS EKG, labs, UA, CXR, orthostatics ordered Full HPI, ROS and PE to be performed by primary ED provider. Medications Administered Discontinued Medications Generic Name Dose Route Start Last Admin Trade Name Freq PRN Reason Stop Dose Admin Diazepam 2 mg 03/31/23 13:03/31/23 13:25 Diazepam 2 Mg Tablet PO 03/31/23 13:06 2 mg ONCE ONE Administration Meclizine HCl 50 mg 03/31/23 13:05 03/31/23 13:24 Meclizine Hcl 25 Mg Tablet PO 03/31/23 13:06 50 mg ONCE ONE Administration Metoclopramide HCl 10 mg 03/31/23 13:05 03/31/23 13:25 Metoclopramide Hcl 10 Mg Tablet PO 03/31/23 13:06 10 mg ONCE ONE Administration Medical Decision Making Medical Decision Making [facility] Narrative: -patient receiving now p.o. Valium, meclizine and Reglan. -my interpretation of head CT: No no intracranial bleed or suspicion for stroke -troponin negative -My interpretation: Sinus rhythm, heart rate 79, right bundle gena block, QTC 456 -for p.m.: I was informed by the patient's nurse that the patient feels much better, no longer having dizziness, orthostatics are negative, patient was able to ambulate by herself and feeling well. Vital stable. Lab Data MDM Lab Attestation statement: I reviewed the patient's lab results. 03/31/23 12:18 03/31/23 12:18 Labs: Lab Results 03/31/23 03/31/23 03/31/23 Range/Units 12:18 12:18 12:18 WBC 10.0 (4.8-10.8) X10*3/uL RBC 5.21 (4.20-5.50) X10*6/uL Hgb 13.3 (12.0-16.0) g/dl Hct 43.2 (37.0-47.0) % MCV 82.9 (80.0-98.0) fL MCH 25.5 L (27.0-33.0) pg MCHC 30.8 L (31.0-35.0) g/dl RDW 14.1 (11.0-16.0) % Plt Count 249 D (160-400) X10*3/uL MPV 9.4 (9.4-12.3) fL Immature Gran % (Auto) 0.4 (0.0-0.4) % Neut % (Auto) 70.6 (45-73) % Lymph % (Auto) 23.0 (20-40) % [place] % (Auto) 5.0 (2-11) % Eos % (Auto) 0.5 (0-4) % Baso % (Auto) 0.5 (0-2) % Lymph # (Auto) 2.3 (1.2-4.9) X10*3/uL [place] # (Auto) 0.5 (0.1-1.2) X10*3/uL Eos # (Auto) 0.1 (0.0-0.4) X10*3/uL Baso # (Auto) 0.1 (0.0-0.2) X10*3/uL Abs Immat Gran (auto) 0.04 H (0.00-0.03) X10*3/uL Absolute Neuts (auto) 7.0 (2.0-8.3) x10*3/uL Absolute Nucleated RBC 0.000 (0.0-0.012) X10*3/uL Nucleated RBC % (auto) 0.0 (0.0-0.2) /100WBC PT 11.9 (10.0-13.1) SEC INR 1.0 (0.9-1.1) Sodium 142 (135-145) mmol/L Potassium 4.1 (3.3-5.1) mmol/L Chloride 106 (96-108) mmol/L Carbon Dioxide 26 (22-29) mmol/L Anion Gap 14 (12-20) BUN 13 (9-16) mg/dL Creatinine 0.97 (0.5-1.4) mg/dL Estim Creat Clear Calc 66.3 Estimated GFR 57 Random Glucose 231 H (60-115) mg/dL Calcium 9.8 (8.4-10.2) mg/dL Magnesium 2.1 (1.6-2.6) mg/dL Total Bilirubin 0.6 (0.0-1.0) mg/dL Direct Bilirubin 0.2 (0.0-0.5) mg/dL AST 24 (5-31) U/L ALT 24 (0-31) U/L Alkaline Phosphatase 101 (39-117) U/L Troponin I High Sens (<3.5-17.0) ng/L Total Protein 8.0 (6.5-8.0) g/dL Albumin 4.2 (3.5-5.0) g/dL Urine Color Urine Appearance Urine pH (5.0-9.0) Ur Specific [place] (1.005-1.025) Urine Protein (Neg-Trace) mg/dL Urine Glucose (UA) (Negative) mg/dL Urine Ketones (Negative) mg/dL Urine Blood (Negative) Urine Nitrite (Negative) Ur Leukocyte Esterase (Negative) Urine RBC (0-2) /HPF Urine WBC (0-5) /HPF Ur Squamous Epith Cells (0-2) /HPF Urine Bacteria (None Seen) Hyaline Casts (0-2) /LPF 03/31/23 03/31/23 Range/Units 12:18 12:25 WBC (4.8-10.8) X10*3/uL RBC (4.20-5.50) X10*6/uL Hgb (12.0-16.0) g/dl Hct (37.0-47.0) % MCV (80.0-98.0) fL MCH (27.0-33.0) pg MCHC (31.0-35.0) g/dl RDW (11.0-16.0) % Plt Count (160-400) X10*3/uL MPV (9.4-12.3) fL Immature Gran % (Auto) (0.0-0.4) % Neut % (Auto) (45-73) % Lymph % (Auto) (20-40) % [place] % (Auto) (2-11) % Eos % (Auto) (0-4) % Baso % (Auto) (0-2) % Lymph # (Auto) (1.2-4.9) X10*3/uL [place] # (Auto) (0.1-1.2) X10*3/uL Eos # (Auto) (0.0-0.4) X10*3/uL Baso # (Auto) (0.0-0.2) X10*3/uL Abs Immat Gran (auto) (0.00-0.03) X10*3/uL Absolute Neuts (auto) (2.0-8.3) x10*3/uL Absolute Nucleated RBC (0.0-0.012) X10*3/uL Nucleated RBC % (auto) (0.0-0.2) /100WBC PT (10.0-13.1) SEC INR (0.9-1.1) Sodium (135-145) mmol/L Potassium (3.3-5.1) mmol/L Chloride (96-108) mmol/L Carbon Dioxide (22-29) mmol/L Anion Gap (12-20) BUN (9-16) mg/dL Creatinine (0.5-1.4) mg/dL Estim Creat Clear Calc Estimated GFR Random Glucose (60-115) mg/dL Calcium (8.4-10.2) mg/dL Magnesium (1.6-2.6) mg/dL Total Bilirubin (0.0-1.0) mg/dL Direct Bilirubin (0.0-0.5) mg/dL AST (5-31) U/L ALT (0-31) U/L Alkaline Phosphatase (39-117) U/L Troponin I High Sens 8.8 D (<3.5-17.0) ng/L Total Protein (6.5-8.0) g/dL Albumin (3.5-5.0) g/dL Urine Color Yellow Urine Appearance Turbid Urine pH 7.5 (5.0-9.0) Ur Specific [place] 1.010 (1.005-1.025) Urine Protein Trace (Neg-Trace) mg/dL Urine Glucose (UA) Negative (Negative) mg/dL Urine Ketones Negative (Negative) mg/dL Urine Blood Negative (Negative) Urine Nitrite Negative (Negative) Ur Leukocyte Esterase Large (3+) H (Negative) Urine RBC 0-2 (0-2) /HPF Urine WBC >50 H (0-5) /HPF Ur Squamous Epith Cells 6-10 (0-2) /HPF Urine Bacteria Trace (None Seen) Hyaline Casts 0-2 (0-2) /LPF Radiology Impression Discussion of test interpretation with radiology: I have reviewed the radiologist's reading. Radiologist Impression: FINDINGS: There is no evidence of an extra-axial collection. There is no evidence of intra-axial or extra-axial hemorrhage. The ventricles and extra-axial CSF spaces are appropriate. Roper-white matter differentiation is normal. No mass, mass effect or infarct. No skull fracture. Question osteoma of the right parietal bone. This is similar to previous exams. Visualized paranasal sinuses, mastoid air cells and total ears are clear. ? CT/CT head/brain wo IV con IMPRESSION: No acute findings. Discharge Plan Discharge Clinical Impression: Dizziness Patient Disposition: Home, Self-Care Instructions: Dizziness (ED) Additional Instructions: Please follow-up with your primary care physician tomorrow. If you have any worsening or new symptoms, please return to the emergency room or call 911 Prescriptions: New meclizine 50 mg tablet 50 mg PO TID PRN (Reason: motion sickness) Qty: 10 0RF No Action amlodipine 10 mg tablet 10 mg PO DAILY 90 Days Qty: 90 1RF ezetimibe [Zetia] 10 mg tablet 10 mg PO DAILY 90 Days Qty: 90 1RF atorvastatin 80 mg tablet 80 mg PO DAILY Qty: 90 1RF albuterol sulfate 2.5 mg /3 mL (0.083 %) solution for nebulization 2.5 mg inhalation Q4H PRN (Reason: shortness of breath or wheezing) 30 Days Qty: 180 11RF albuterol sulfate [Ventolin HFA] 90 mcg/actuation HFA aerosol inhaler 2 puff inhalation QID PRN (Reason: shortness of breath or wheezing) 30 Days Qty: 18 11RF nitroglycerin 0.4 mg tablet, sublingual 0.4 mg sublingual Q5M Qty: 25 5RF fluticasone propion-salmeterol [Advair Diskus] 250-50 mcg/dose blister with de vice 1 ea PO Q12H Qty: 60 11RF metoprolol succinate 25 mg tablet extended release 24 hr 25 mg PO BEDTIME Qty: 90 1RF cyclobenzaprine 5 mg tablet 5 mg PO TID PRN (Reason: right rib pain) 7 Days Qty: 21 0RF pregabalin 200 mg capsule 1 cap PO BID Trulicity 1.5 mg/0.5 mL pen injector 1.5 mg subcut QWEEK simethicone 180 mg capsule 180 mg PO QID PRN (Reason: Abdominal Pain) Rx Instructions: after meals (DME) FreeStyle Lite Strips Strip Qty: 100 0RF Rx Instructions: Test four times a day or as directed. (DME) blood-glucose meter [FreeStyle Lite Meter] Kit Qty: 1 0RF Rx Instructions: As Directed alcohol swabs Pads, Medicated 1 pad TOPICAL QIDACHS Qty: 100 0RF Rx Instructions: Use four times a day or as directed. insulin lispro [Humalog KwikPen Insulin] 100 unit/mL insulin pen 1 sliding scale dose SUBCUT QIDACHS Qty: 15 0RF Rx Instructions: Blood Sugar: <150 - 0 units 151-200 - 4 units 201-250 - 6 units 251-300 - 8 units 301-350 - 12 units >350 - 15 units > 350, call your Doctor insulin glargine [Lantus Solostar U-100 Insulin] 100 unit/mL (3 mL) insulin pen 40 unit SUBCUT DAILY Qty: 15 0RF (DME) pen needle, diabetic 32 gauge x 1/4 needle Qty: 100 0RF Rx Instructions: Use four times a day or as directed. (DME) lancets [FreeStyle Lancets] 28 gauge misc Qty: 100 0RF Rx Instructions: Test four times a day or as directed. aspirin 81 mg tablet,delayed release (DR/EC) 81 mg PO DAILY amitriptyline 100 mg tablet 200 mg PO BEDTIME cyanocobalamin (vitamin B-12) 1,000 mcg tablet 1,000 mcg PO DAILY [id number]-[id number]-zaxb 50-325-40 mg tablet 1 tab PO TID PRN (Reason: Pain) mirtazapine 45 mg tablet 45 mg PO BEDTIME cholecalciferol (vitamin D3) 50 mcg (2,000 unit) capsule 50 mcg PO DAILY trazodone 100 mg tablet 100 mg PO BEDTIME topiramate 100 mg tablet 100 mg PO BID Incruse Ellipta 62.5 mcg/actuation blister with device 1 inh PO DAILY 30 Days Qty: 30 11RF epinephrine 0.3 mg/0.3 mL auto-injector 3 mg IM DIRECTED celecoxib 200 mg capsule 200 mg PO DAILY cetirizine 10 mg tablet 10 mg PO BEDTIME metformin 500 mg tablet extended release 24 hr 1,000 mg PO QAM clonazepam 1 mg tablet 1 mg PO BID PRN (Reason: Anxiety) senna 8.6 mg capsule 17.2 mg PO BEDTIME 30 Days Qty: 60 4RF venlafaxine 37.5 mg capsule,extended release 24hr 37.5 mg PO DAILY (DME) lancets [TRUEplus Lancets] 33 gauge misc See Rx Instructions .ROUTE BID Qty: 100 Rx Instructions: As directed omeprazole 40 mg capsule,delayed release(DR/EC) 40 mg PO BID 30 Days Qty: 60 4RF sucralfate 1 gram tablet 2 g PO DAILY 90 Days Qty: 180 1RF metoclopramide HCl 5 mg tablet 5 mg PO TID Qty: 90 4RF
--- NOTE | 2023-03-31 12:01 | ECG_ITS ---
Test Reason : DIZZY Blood Pressure : / mmHG Vent. Rate : 079 BPM Atrial Rate : 079 BPM P-R Int : 152 ms QRS Dur : 144 ms QT Int : 398 ms P-R-T Axes : 026 -28 -15 degrees QTc Int : 456 ms Normal sinus rhythm with sinus arrhythmia Right bundle branch block Minimal voltage criteria for LVH, may be normal variant ( R in aVL ) Possible Lateral infarct , age undetermined Abnormal ECG When compared with ECG of 10-NOV-2022 14:35, Borderline criteria for Lateral infarct are now Present QT has shortened Referred By: Sharri Sr Electronically Signed By:SALEEM WANG
[2023-03-31 12:23] LABS: MANUAL DIFF FLAG NO
[2023-03-31 12:25] LABS: Basophils Absolute Auto 0.1 X10*3/uL (0.0-0.2); Basophils Percent Auto 0.5 % (0-2); Eosinophils Absolute Auto 0.1 X10*3/uL (0.0-0.4); Eosinophils Percent Auto 0.5 % (0-4); Hematocrit 43.2 % (37.0-47.0); Hemoglobin 13.3 g/dl (12.0-16.0); Imm Gran Abs Auto 0.04 X10*3/uL (0.00-0.03); Imm Gran Pct Auto 0.4 % (0.0-0.4); Lymphocytes Absolute Auto 2.3 X10*3/uL (1.2-4.9); Mean Corpuscular HGB Conc 30.8 g/dl (31.0-35.0); Mean Corpuscular Hemoglobin 25.5 pg (27.0-33.0); Mean Corpuscular Volume 82.9 fL (80.0-98.0); Mean Platelet Volume 9.4 fL (9.4-12.3); Monocytes Absolute Auto 0.5 X10*3/uL (0.1-1.2); Neutrophils Percent Auto 70.6 % (45-73); Platelet Count 249 X10*3/uL (160-400); Red Blood Count 5.21 X10*6/uL (4.20-5.50); Red Cell Distribution Width 14.1 % (11.0-16.0)
[2023-03-31 12:31] LABS: Prothrombin Time 11.9 SEC (10.0-13.1)
[2023-03-31 12:32] LABS: Appearance Urine Turbid; Color Urine Yellow; Glucose Urine UA Negative (Negative); Leukocyte Esterase Urine Large (3+) (Negative); Nitrite Urine Negative (Negative); PH 7.5 (5.0-9.0); UMIC TRIGGER UACC YES; Urine Blood Negative (Negative); Urine Ketones Negative (Negative); Urine Protein Trace mg/dL (Neg-Trace)
[2023-03-31 12:34] LABS: Bacteria Urine Trace (None Seen); Hyaline Casts Urine 0-2 /LPF (0-2); RBC Urine 0-2 /HPF (0-2); UACC Culture Trigger YES; WBC Urine >50 /HPF (0-5)
[2023-03-31 12:42] LABS: Alanine Aminotransferase 24 U/L (0-31); Albumin Level 4.2 g/dL (3.5-5.0); Alkaline Phosphatase 101 U/L (39-117); Anion Gap 14 (12-20); Aspartate Amino Transferase 24 U/L (5-31); Bilirubin Direct 0.2 mg/dL (0.0-0.5); Bilirubin Total 0.6 mg/dL (0.0-1.0); Blood Urea Nitrogen 13 mg/dL (9-16); Calcium 9.8 mg/dL (8.4-10.2); Carbon Dioxide 26 mmol/L (22-29); Chloride 106 mmol/L (96-108); Creatinine Clr Calc Pharmacy 66.3; Estimated Glomerular Filt Rate 57; Glucose Random 231 mg/dL (60-115); Magnesium 2.1 mg/dL (1.6-2.6); Potassium 4.1 mmol/L (3.3-5.1); Sodium 142 mmol/L (135-145)
[2023-03-31 12:49] LABS: Troponin-I High Sensitivity 8.8 ng/L (<3.5-17.0)
[2023-03-31] MEDS: Meclizine HCl 25 MG TABLET 50 MG PO (13:24)
[2023-03-31] MEDS: Metoclopramide HCl 10 MG TABLET PO (13:25)
[2023-03-31] MEDS: diazePAM 2 MG TABLET PO (13:25)
[2023-03-31 13:43] VITALS: BP 149/83; PULSE 82
[2023-03-31 13:45] VITALS: BP 129/102; PULSE 88
[2023-03-31 13:46] VITALS: BP 136/80; PULSE 96
[2023-03-31 13:48] VITALS: BP 136/80; PULSE 96; RESP 14; O2SAT 96
--- NOTE | 2023-03-31 15:56 | PC.NURSE ---
STS FEELING BETTER, ASKING IF SHE CAN GO HOME. TRIAL AMBULATION IN HALLWAY SHOWING STEADY GAIT WITH NO ASSIST.
[2023-03-31 16:01] VITALS: BP 141/76; PULSE 83; RESP 16; TEMP 36; O2SAT 97
== END 2023-03-31 16:13 | disposition home or self-care (01) ==
PROVIDERS: Physician Assistant; Emergency Provider Emergency Medicine
DX: R42 Dizziness and giddiness (principal); J45.909 Unspecified asthma, uncomplicated; I25.10 Atherosclerotic heart disease of native coronary artery without angina pectoris; I10 Essential (primary) hypertension; G47.33 Obstructive sleep apnea (adult) (pediatric); E11.8 Type 2 diabetes mellitus with unspecified complications; E78.5 Hyperlipidemia, unspecified; K22.70 Barrett's esophagus without dysplasia; K21.9 Gastro-esophageal reflux disease without esophagitis; Z79.899 Other long term (current) drug therapy
CPT/HCPCS: 36415; 70450; 71045; 80048; 80076; 81001; 83735; 84484; 85025; 85610; 87086; 93005; 99284; 99285

== ENCOUNTER 2023-04-17 11:31 | Outpatient (REF) | payer MEDICARE, MEDICAID, SELFPAY ==
--- NOTE | ~2023-04-17 | XR_ITS ---
EXAMINATION: XR KNEE, RIGHT CLINICAL INFORMATION: Pain COMPARISON: Previous x-ray November 2022 TECHNIQUE: Three views of the right knee. FINDINGS: Bone alignment is normal. No fracture or dislocation. Mild degenerative changes at the medial femoral tibial and patellofemoral joints with small osteophytes. Small joint effusion. XR/XR knee RT 3V IMPRESSION: Mild degenerative changes.
--- NOTE | ~2023-04-17 | XR_ITS ---
EXAMINATION: XR HIP, RIGHT CLINICAL INFORMATION: Pain COMPARISON: Previous x-ray most recent January 2023 TECHNIQUE: Two views of the right hip. FINDINGS: Bone alignment is normal. No fracture or dislocation. There is arthritis of the right hip joint with joint space narrowing and osteophyte formation similar to previous exam. Soft tissues are unremarkable. XR/XR hip RT min 2V IMPRESSION: Right hip arthritis similar to previous exam.
== END 2023-04-17 11:32 | disposition home or self-care (01) ==
LOC: HO.HHCX 11:31
PROVIDERS: Visit Provider Student in an Organized Health Care Education/Training Program
DX: M25.561 Pain in right knee (principal); M25.551 Pain in right hip; M25.562 Pain in left knee; G89.29 Other chronic pain
CPT/HCPCS: 73502; 73562

== ENCOUNTER 2023-04-28 13:45 | Outpatient (AMB) | payer MEDICARE, MEDICAID, SELFPAY ==
--- NOTE | 2023-04-28 13:49 | A.OFFVIS_ITS ---
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 Porcelain Enamel Laborer Language: Administrative Tech Name: [id number] Manjeet Accompanied by: Self / Same As Patient Allergies bee pollen [BEE STINGS] Allergy (Unknown, Verified 04/28/23 13:49) ANAPHYLAXIS morphine [MORPHINE] Allergy (Unknown, Verified 04/28/23 13:49) ITCHING Medication List - Last Reconciled 04/28/23 by Dileep Freeman MD albuterol sulfate 2.5 mg (3 mL) inhalation Q4H PRN 30 days albuterol sulfate 90 mcg/actuation (Ventolin HFA) 2 puffs inhalation QID PRN 30 days alcohol swabs 1 pad topical QIDACHS amitriptyline 200 mg PO BEDTIME amlodipine 10 mg PO DAILY 90 days aspirin 81 mg PO DAILY atorvastatin 80 mg PO DAILY blood sugar diagnostic (FreeStyle Lite Strips) Test four times a day or as directed. blood-glucose meter (FreeStyle Lite Meter kit) As Directed mgbstcutzb-dupopwtwvgfeq-tjml 50-325-40 mg 1 tab PO TID PRN celecoxib 200 mg PO DAILY cetirizine 10 mg PO BEDTIME cholecalciferol (vitamin D3) 50 mcg PO DAILY clonazepam 1 mg PO BID PRN cyanocobalamin (vitamin B-12) 1,000 mcg PO DAILY cyclobenzaprine 5 mg PO TID PRN 7 days dulaglutide (Trulicity) 1.5 mg subcut QWEEK epinephrine 3 mg IM DIRECTED ezetimibe (Zetia) 10 mg PO DAILY 90 days fluticasone propion-salmeterol 250-50 mcg/dose (Advair Diskus) 1 ea PO Q12H insulin glargine (Lantus Solostar U-100 Insulin) 40 units (0.4 mL) subcut DAILY insulin lispro (Humalog KwikPen (U-100) Insulin) 1 sliding scale dose subcut QIDACHS lancets (FreeStyle Lancets) Test four times a day or as directed. lancets (TRUEplus Lancets) As directed meclizine 50 mg PO TID PRN metformin ER 1,000 mg PO QAM metoclopramide HCl 5 mg PO TID metoprolol succinate ER 25 mg PO BEDTIME mirtazapine 45 mg PO BEDTIME nitroglycerin 0.4 mg sublingual Q5M omeprazole 40 mg PO BID 30 days pen needle, diabetic Use four times a day or as directed. pregabalin 1 cap PO BID sennosides (senna) 17.2 mg (2 x 8.6 mg) PO BEDTIME 30 days simethicone 180 mg PO QID PRN sucralfate 2 grams (2 x 1 gram) PO DAILY 90 days topiramate 100 mg PO BID trazodone 100 mg PO BEDTIME umeclidinium 62.5 mcg/actuation (Incruse Ellipta) 1 inh PO DAILY 30 days venlafaxine ER 37.5 mg PO DAILY HPI HPI Comments History of Present Illness Details Naa returns for follow-up regarding coronary disease. Based on his stress testing as well as coronary CTA, has underlying coronary disease. Multiple cardiovascular risk factors. In the past, we had discussed cardiac catheterization but she has extreme anxiety and hence has canceled the procedure minute times. Otherwise, she does get chest pain off and on. Every few weeks or so according to her. These feel like some tightness. Nothing clearly exertional. [facility] Medical History Asthma Atherosclerotic cardiovascular disease Chronic allergic rhinitis Chronic restrictive lung disease Essential hypertension EDWIN on CPAP Other and unspecified hyperlipidemia Type 2 diabetes mellitus with unspecified complications Surgical History History of esophagogastroduodenoscopy (EGD) Hx of colonoscopy Family History Mother HTN (hypertension) Heart disease Asthma Maternal Aunt Breast cancer Maternal Aunt Tumor Maternal Aunt Cancer Social History Household Members: Spouse and Family Household Members Other:: 4 household members Housing: Apartment Do you presently have visiting nurse or other home services: No Alcohol intake: never Patient Tobacco Use Status: Never used Tobacco service: No Review of Systems Const Denies weakness ENT Denies dizziness Card Denies chest pain, Denies chest pain with activity, Denies syncope, Denies rapid heart rate, Denies pedal edema, Denies edema, Denies leg edema, Denies lightheadedness, Denies palpitations, Denies dyspnea, Denies dyspnea on exertion and Denies orthopnea Resp Denies cough, Denies dyspnea and Denies dyspnea on exertion GI Denies hematochezia and Denies change in stool character Musc Denies abnormal gait, Denies muscle cramps, Denies muscle weakness, Denies numbness, Denies radiating pain into limb and Denies tingling Neuro Denies abnormal gait, Denies dizziness, Denies syncope, Denies numbness, Denies tingling and Denies weakness Endo Denies palpitations Physical Exam Vital Signs: Last Vital Signs Pulse 87 04/28/23 13:51 BP 112/76 04/28/23 13:51 BMI result Body Mass Index 35.2 Const General: comfortable and no acute distress Orientation/consciousness: patient oriented x3 HEENT Other: Unremarkable Head: Yes normal to inspection Neck Neck: Yes normal visual inspection Chest Chest palpation & inspection: normal inspection of the chest Resp Auscultation: clear to auscultation bilaterally Cardio Palpation: normal PMI Heart sounds: S1 normal heart sound present, S2 normal heart sound present, no gallops, no murmurs and no rubs GI Palpation (GI): Soft to palpation Back/Spine/Pelvis Other: unremarkable Skin General skin exam: no rashes or lesions noted Neuro General: patient oriented x3 Extrem General: Yes normal to inspection Psych Mental Status: mental status grossly normal Assessment & Plan Assessment & Plan (1) Atherosclerotic cardiovascular disease: Code(s): I25.10 - Atherosclerotic heart disease of [place] coronary artery without angina pectoris Plan: Myocardial perfusion imaging study in the past showed mild intensity apical ischemia. Coronary CTA had shown moderate calcification the LAD and circumflex; luminal patency cannot be assessed adequately but there was no occlusion. In the past, cardiac catheterization arranged but canceled by patient due to anxiety. As she still gets episodes of chest tightness and has numerous risk factors as well as abnormal testing, will benefit from diagnostic cardiac catheterization. Again discussed about and she is agreeable this time. Hopefully, she will keep the appointments. For meds, remains on aspirin, beta-blockers and statins. (2) Type 2 diabetes mellitus with unspecified complications: Code(s): E11.8 - Type 2 diabetes mellitus with unspecified complications Plan: Listed to be on Trulicity, metformin. Blood sugar does not appear well controlled as the last hemoglobin A1c is 13.5% from November this year. (3) Essential hypertension: Code(s): I10 - Essential (primary) hypertension Plan: Continue amlodipine. (4) Other and unspecified hyperlipidemia: Code(s): E78.5 - Hyperlipidemia, unspecified Plan: Continue statins and Zetia. Last available LDL 93 mg/dL. Can recheck. Orders: Orders Cardiac Cath LT Diagnostic Today I25.10 - Atherosclerotic heart disease of [place] coronary artery without angina pectoris Basic Metabolic Panel Today I25.10 - Atherosclerotic heart disease of [place] c oronary artery without angina pectoris Prothrombin Time INR Today I25.10 - Atherosclerotic heart disease of [place] coronary artery without angina pectoris Complete Blood Count no Diff Today I25.10 - Atherosclerotic heart disease of [place] coronary artery without angina pectoris LDL Cholesterol Direct Today E78.2 - Mixed hyperlipidemia Lipid Panel Today E78.5 - Hyperlipidemia, unspecified Coding Level of Care Code Est Pt Level 5 (33800) Diagnoses Atherosclerotic cardiovascular disease I25.10 Type 2 diabetes mellitus with unspecified complications E11.8 Essential hypertension I10 Other and unspecified hyperlipidemia E78.5
[2023-04-28 13:51] VITALS: BP 112/76; PULSE 87; BMI 35.2
== END 2023-04-28 14:13 | disposition home or self-care (01) ==
PROVIDERS: PCP Internal Medicine; Referring Provider Internal Medicine; Visit Provider Internal Medicine
DX: I25.10 Atherosclerotic heart disease of native coronary artery without angina pectoris (principal)
CPT/HCPCS: 93458; 99152; 99215

== ENCOUNTER → 2023-04-28 13:45 | Outpatient (BNVA) | payer MEDICARE, MEDICAID, SELFPAY | PROVIDERS: PCP Internal Medicine; Referring Provider Internal Medicine; Visit Provider Internal Medicine | DX: I25.10 Atherosclerotic heart disease of native coronary artery without angina pectoris (principal); I10 Essential (primary) hypertension; E78.5 Hyperlipidemia, unspecified; E11.8 Type 2 diabetes mellitus with unspecified complications | CPT/HCPCS: 99212 ==

== ENCOUNTER → 2023-04-30 13:47 | Outpatient (BNVA) | payer MEDICARE, MEDICAID, SELFPAY | PROVIDERS: PCP Internal Medicine; Visit Provider Hospitalist | DX: J45.40 Moderate persistent asthma, uncomplicated (principal); J30.9 Allergic rhinitis, unspecified; J98.4 Other disorders of lung; K21.00 Gastro-esophageal reflux disease with esophagitis, without bleeding; G47.33 Obstructive sleep apnea (adult) (pediatric); Z99.89 Dependence on other enabling machines and devices | CPT/HCPCS: 99212 ==

== ENCOUNTER 2023-05-19 12:59 | Outpatient (REF) | payer MEDICARE, MEDICAID, SELFPAY ==
[2023-05-19 14:07] LABS: Hematocrit 40.5 % (37.0-47.0); Hemoglobin 12.3 g/dl (12.0-16.0); Mean Corpuscular HGB Conc 30.4 g/dl (31.0-35.0); Mean Corpuscular Hemoglobin 25.2 pg (27.0-33.0); Mean Corpuscular Volume 82.8 fL (80.0-98.0); Mean Platelet Volume 10.2 fL (9.4-12.3); Platelet Count 209 X10*3/uL (160-400); Red Blood Count 4.89 X10*6/uL (4.20-5.50); Red Cell Distribution Width 14.2 % (11.0-16.0); White Blood Count 8.7 X10*3/uL (4.8-10.8)
[2023-05-19 14:10] LABS: Prothrombin Time 11.8 SEC (10.0-13.1)
[2023-05-19 14:44] LABS: Anion Gap 15 (12-20); Blood Urea Nitrogen 13 mg/dL (9-16); Calcium 9.6 mg/dL (8.4-10.2); Carbon Dioxide 22 mmol/L (22-29); Chloride 110 mmol/L (96-108); Cholesterol 173 mg/dL; Estimated Glomerular Filt Rate > 60; Glucose Random 266 mg/dL (60-115); HDL Cholesterol 46 mg/dL; LDL Cholesterol Calculated 91 mg/dl; Potassium 3.6 mmol/L (3.3-5.1); Sodium 143 mmol/L (135-145); Triglycerides 181 mg/dL
[2023-05-21 10:24] LABS: LDL Cholesterol Direct 98 mg/dL (<100)
== END 2023-05-19 13:00 | disposition home or self-care (01) ==
LOC: HO.LAB 12:59
PROVIDERS: PCP Internal Medicine; Visit Provider Internal Medicine
DX: I25.10 Atherosclerotic heart disease of native coronary artery without angina pectoris (principal); E78.2 Mixed hyperlipidemia
CPT/HCPCS: 36415; 80048; 80061; 83721; 85027; 85610

== ENCOUNTER 2023-06-18 13:50 | Outpatient (AMB) | payer MEDICARE, MEDICAID, SELFPAY ==
[2023-06-18 14:08] VITALS: BP 140/80; PULSE 92; BMI 35.9
--- NOTE | 2023-06-18 14:08 | A.OFFVIS_ITS ---
Intake Vital Signs 06/18/23 14:08 Height 5 ft 6 in Weight 222 lb 10.67 oz BMI 35.9 BP 140/80 H Blood Pressure Location Lt brachial Position Sitting Pulse 92 Intake Visit Reasons: 2 wk s/p cath Intake Note: 2 wk s/p cath still felling s/b and arm numbness Palliative Medicine Physician Required: Yes Palliative Medicine Physician Name: cinthia diaz [id number] Allergies bee pollen [BEE STINGS] Allergy (Unknown, Verified 06/18/23 14:17) ANAPHYLAXIS morphine [MORPHINE] Allergy (Unknown, Verified 06/18/23 14:17) ITCHING Medication List - Last Reconciled 06/18/23 by SHRUTHI DonaldsonC albuterol sulfate 2.5 mg (3 mL) inhalation Q4H PRN 30 days albuterol sulfate 90 mcg/actuation (Ventolin HFA) 2 puffs inhalation QID PRN 30 days alcohol swabs 1 pad topical QIDACHS alirocumab (Praluent Pen) 75 mg subcut Q2W amitriptyline 200 mg PO BEDTIME amlodipine 10 mg PO DAILY 90 days aspirin 81 mg PO DAILY atorvastatin 80 mg PO DAILY blood sugar diagnostic (FreeStyle Lite Strips) Test four times a day or as directed. blood-glucose meter (FreeStyle Lite Meter kit) As Directed [id number]-xdvyuevq-wcojxgzcka 160-9-4.8 mcg/actuation (Breztri Aerosphere) 2 inhalations inhalation BID 30 days gzrkoohsks-gfpdjomuwosmg-kghn 50-325-40 mg 1 tab PO TID PRN celecoxib 200 mg PO DAILY cetirizine 10 mg PO BEDTIME cholecalciferol (vitamin D3) 50 mcg PO DAILY clonazepam 1 mg PO BID PRN cyanocobalamin (vitamin B-12) 1,000 mcg PO DAILY cyclobenzaprine 5 mg PO TID PRN 7 days dulaglutide (Trulicity) 1.5 mg subcut QWEEK epinephrine 3 mg IM DIRECTED ezetimibe (Zetia) 10 mg PO DAILY 90 days fluticasone propion-salmeterol 250-50 mcg/dose (Advair Diskus) 1 ea PO Q12H fluticasone propionate 50 mcg/actuation 2 sprays intranasal DAILY insulin glargine (Lantus Solostar U-100 Insulin) 40 units (0.4 mL) subcut DAILY insulin lispro (Humalog KwikPen (U-100) Insulin) 1 sliding scale dose subcut QIDACHS lancets (FreeStyle Lancets) Test four times a day or as directed. lancets (TRUEplus Lancets) As directed meclizine 50 mg PO TID PRN metformin ER 1,000 mg PO QAM metoclopramide HCl 5 mg PO TID metoprolol succinate ER 25 mg PO BEDTIME mirtazapine 45 mg PO BEDTIME nebulizers As directed nitroglycerin 0.4 mg sublingual Q5M omeprazole 40 mg PO BID 30 days pen needle, diabetic Use four times a day or as directed. pregabalin 1 cap PO BID sennosides (senna) 17.2 mg (2 x 8.6 mg) PO BEDTIME 30 days simethicone 180 mg PO QID PRN sucralfate 2 grams (2 x 1 gram) PO DAILY 90 days topiramate 100 mg PO BID trazodone 100 mg PO BEDTIME umeclidinium 62.5 mcg/actuation (Incruse Ellipta) 1 inh PO DAILY 30 days venlafaxine ER 37.5 mg PO DAILY HPI 2 wk s/p cath HPI Details Chitra is a 67-year-old female with past medical history of diabetes, hypertension, obstructive sleep apnea with CPAP use, coronary artery disease, chest discomfort who recently underwent a cardiac catheterization and now presents for follow-up. Today she reports that she continues to get periodic discomfort in her chest. She is vague in describing it even with the use of a sales forecast analyst. She denies having problems with shortness of breath, palpitations, dizziness, presyncope, syncope, PND, orthopnea or edema. Her right radial catheterization site is feeling well. She is taking her meds as directed. She is now on a shot for cholesterol. Certified sales forecast analyst used. [facility] Medical History (Updated 06/18/23 @ 17:22 by GABRIEL Donaldson) Asthma Atherosclerotic cardiovascular disease Chronic allergic rhinitis Chronic restrictive lung disease Essential hypertension ED[place] on CPAP Other and unspecified hyperlipidemia Type 2 diabetes mellitus with unspecified complications Surgical History (Updated 06/18/23 @ 17:22 by GABRIEL Donaldson) History of esophagogastroduodenoscopy (EGD) Hx of colonoscopy Family History Mother HTN (hypertension) Heart disease Asthma Maternal Aunt Breast cancer Maternal Aunt Tumor Maternal Aunt Cancer Social History Household Members: Spouse and Family Household Members Other:: 4 household members Housing: Apartment Do you presently have visiting nurse or other home services: No Alcohol intake: never Patient Tobacco Use Status: Never used Tobacco service: No Review of Systems Const All systems reviewed & are unremarkable except as noted in HPI and below ENT Reports dizziness Card Details: Vague description of pain in chest Reports chest pain, Denies chest pain at rest, Denies chest pain with activity, Denies rapid heart rate, Denies pedal edema, Denies edema, Denies leg edema, Denies lightheadedness, Denies palpitations, Denies dyspnea, Denies dyspnea on exertion and Denies orthopnea Resp Denies cough, Denies dyspnea and Denies dyspnea on exertion GI Denies hematochezia and Denies change in stool character Musc Details: Reports arthritis in knees Denies abnormal gait, Reports limited range of motion, Reports muscle cramps, Denies muscle weakness, Denies numbness, Denies radiating pain into limb, Denies stiffness and Denies tingling Neuro Denies abnormal gait, Reports dizziness, Denies numbness and Denies tingling Endo Denies palpitations Physical Exam Vital Signs: Last Vital Signs Pulse 92 06/18/23 14:08 BP 140/80 H 06/18/23 14:08 BMI result Body Mass Index 35.9 Const General: cooperative, comfortable and no acute distress Orientation/consciousness: patient oriented x3 Neck Neck: Yes normal visual inspection and Yes no JVD Resp Effort & Inspection: normal respiratory effort Auscultation: clear to auscultation bilaterally, no crackles, no rales, no rhonchi and no wheezes Cardio Jugular venous distension: no JVD Rate: regular rate Rhythm: regular rhythm Heart sounds: S1 normal heart sound present, S2 normal heart sound present, no gallops, no murmurs and no rubs GI Inspection: Yes normal to inspection Neuro General: patient oriented x3 Extrem General: Yes normal to inspection, No no pedal edema and No calf tenderness Psych Appearance: grossly normal Mental Status: mental status grossly normal Speech and movement: Normal speech and movement present Office Procedures EKG Details: Today, read by me, sinus rhythm with sinus arrhythmia, left axis deviation, right bundle branch block, can not exclude lateral infarct, rate 92, QTC 494 millisecond which is falsely prolonged with wide QRS [id number], Complete Assessment & Plan Assessment & Plan (1) Chest discomfort: Code(s): R07.89 - Other chest pain Plan: Reports of chest discomfort in patient with multiple cardiac risk factors including hypertension, hyperlipidemia, diabetes, obesity. Nuclear stress test done 05/02/2021 showing mild intensity apical ischemia, EF 65%. A coronary CTA had shown moderate calcification of the LAD and circumflex, luminal patency could not be assessed adequately but no occlusion. She had previously declined cardiac catheterization. More recently she did agree to proceed due to ongoing report of symptoms. Cardiac catheterization done 2 weeks ago with findings of only mild LAD and circumflex disease and RCA 40% stenosis. Patient informed of results. Chest discomfort is noncardiac in nature. She has mild coronary artery disease which will be treated medically. Continue aspirin 81 mg daily indefinitely. Continue high-dose atorvastatin, Zetia and now on Praluent. Plan lena for fasting lipid profile repeat in 1 month. Last LDL on statin and Zetia was 98. Reviewed need for good blood pressure, blood sugar and weight control. Activity as tolerated. Cardiology follow-up in 6 months, sooner if needed. (2) Atherosclerotic cardiovascular disease: Code(s): I25.10 - Atherosclerotic heart disease of [place] coronary artery without angina pectoris (3) S/P cardiac catheterization: Comment: 06/02/2023, left main normal LAD and left circumflex less than 30% stenosis, RCA ostial 40% stenosis Code(s): Z98.890 - Other specified postprocedural states Plan: Right radial catheterization site well healed (4) Essential hypertension: Code(s): I10 - Essential (primary) hypertension Plan: Initially mildly elevated at 1 40/80, recheck done by me 132/68. No med changes made. (5) Other and unspecified hyperlipidemia: Code(s): E78.5 - Hyperlipidemia, unspecified Plan: As above Coding Level of Care Code Est Pt Level 4 (53584) Diagnoses Chest discomfort R07.89 Atherosclerotic cardiovascular disease I25.10 S/P cardiac catheterization Z98.890 Essential hypertension I10 Other and unspecified hyperlipidemia E78.5 CPT Codes EKG - CPT: [id number], Complete ([id number]) Time Spent (min) 28 Comment Chart review, documentation, interview, assessment
== END 2023-06-18 14:48 | disposition home or self-care (01) ==
PROVIDERS: PCP Internal Medicine; Referring Provider Internal Medicine; Visit Provider Nurse Practitioner Family
DX: R07.89 Other chest pain (principal); I25.10 Atherosclerotic heart disease of native coronary artery without angina pectoris; Z98.890 Other specified postprocedural states; I10 Essential (primary) hypertension; E78.5 Hyperlipidemia, unspecified
CPT/HCPCS: 93010; 99214

== ENCOUNTER → 2023-06-18 13:50 | Outpatient (BNVA) | payer MEDICARE, MEDICAID, SELFPAY | PROVIDERS: PCP Internal Medicine; Referring Provider Internal Medicine; Visit Provider Nurse Practitioner Family | DX: R07.89 Other chest pain (principal); I25.10 Atherosclerotic heart disease of native coronary artery without angina pectoris; I10 Essential (primary) hypertension; E78.5 Hyperlipidemia, unspecified; Z98.890 Other specified postprocedural states | CPT/HCPCS: 93005; 99212 ==

== ENCOUNTER 2023-08-10 13:47 | Emergency (ER) | payer MEDICARE, MEDICAID, SELFPAY ==
--- NOTE | ~2023-08-10 | CT_ITS ---
EXAMINATION: CT ABDOMEN AND PELVIS WITHOUT CONTRAST CLINICAL INFORMATION: Right lower quadrant pain. COMPARISON: 05/09/2022 TECHNIQUE: Multidetector volumetric imaging was performed from the superior aspect of the liver through the pubic symphysis. Sagittal and coronal reformatted images were obtained on the technologist's workstation. This CT examination was performed using dose optimization techniques as appropriate, variously including the following: *Automated exposure control *Adjustment of mA and/or kV according to patient size (this includes techniques or standardized protocols for targeted exams where dose is matched to indication/reason for exam; i.e. extremities or head) *Use of iterative reconstruction technique DLP: 739 mGy-cm FINDINGS: LUNG BASES: The visualized lung bases are unremarkable. LIVER, GALLBLADDER, AND BILIARY TREE: The noncontrast liver is normal in size and contour. No biliary ductal dilatation is present. The gallbladder is contracted. PANCREAS: No ductal dilatation. SPLEEN: Not enlarged. ADRENAL GLANDS: No adrenal mass. KIDNEYS AND URETERS: The kidneys are symmetric in size. Nonobstructing lower pole left renal calculi. 8.2 x 8.0 cm mid to lower pole right renal cyst. No further imaging follow-up is needed. No hydronephrosis. BLADDER: Decompressed. GASTROINTESTINAL TRACT: Small and large bowel loops are of normal caliber. No small bowel obstruction. Appendix is within normal limits. ABDOMINAL WALL: No significant hernia is appreciated. LYMPH NODES: No bulky abdominal or pelvic lymphadenopathy. VASCULAR: Normal caliber abdominal aorta. PELVIC VISCERA: The uterus and adnexa are unremarkable. OSSEOUS STRUCTURES: No destructive bone lesions. CT/CT abdomen pelvis wo IV con IMPRESSION: No acute abnormality in the abdomen or pelvis.
[2023-08-10 14:40] VITALS: BP 176/93; PULSE 84; RESP 19; TEMP 36.4; O2SAT 96; BMI 35.7
--- NOTE | 2023-08-10 14:43 | ED.GENADULT ---
HPI - General Adult General Chief complaint: Abdominal Pain Stated complaint: R flank pain Related Data Home Medications Medication Instructions Recorded Confirmed amitriptyline 100 mg tablet 200 mg PO BEDTIME 10/29/20 06/18/23 aspirin 81 mg tablet,delayed 81 mg PO DAILY 10/29/20 06/18/23 release jzkoyeawzp-arklnzsquenvw-uchdoqha 1 tab PO TID PRN Pain 10/29/20 06/18/23 50 mg-325 mg-40 mg tablet cholecalciferol (vitamin D3) 50 50 mcg PO DAILY 10/29/20 06/18/23 mcg (2,000 unit) capsule cyanocobalamin (vitamin B-12) 1,000 mcg PO DAILY 10/29/20 06/18/23 1,000 mcg tablet mirtazapine 45 mg tablet 45 mg PO BEDTIME 10/29/20 06/18/23 trazodone 100 mg tablet 100 mg PO BEDTIME 10/29/20 06/18/23 topiramate 100 mg tablet 100 mg PO BID 07/16/21 06/18/23 epinephrine 0.3 mg/0.3 mL 3 mg IM DIRECTED anaphylaxis 01/30/22 06/18/23 injection, auto-injector celecoxib 200 mg capsule 200 mg PO DAILY 05/05/22 06/18/23 cetirizine 10 mg tablet 10 mg PO BEDTIME 05/05/22 06/18/23 lancets 33 gauge (TRUEplus Lancets) #100 ea 08/12/22 06/18/23 venlafaxine 37.5 mg 37.5 mg PO DAILY 08/12/22 06/18/23 capsule,extended release 24 hr clonazepam 1 mg tablet 1 mg PO BID PRN Anxiety 10/28/22 06/18/23 metformin 500 mg tablet,extended 1,000 mg PO QAM 10/28/22 06/18/23 release 24 hr dulaglutide 1.5 mg/0.5 mL 1.5 mg subcut QWEEK 11/10/22 06/18/23 subcutaneous pen injector ([facility]) pregabalin 200 mg capsule 1 cap PO BID 11/10/22 06/18/23 simethicone 180 mg capsule 180 mg PO QID PRN Abdominal Pain 11/10/22 06/18/23 fluticasone propionate 50 2 spray intranasal DAILY 04/30/23 06/18/23 mcg/actuation nasal spray,suspension nebulizers 04/30/23 06/18/23 Previous Rx's Medication Instructions Recorded amlodipine 10 mg tablet 10 mg PO DAILY 90 days #90 tabs 09/17/20 ezetimibe 10 mg tablet (Zetia) 10 mg PO DAILY 90 days #90 tabs 09/26/20 umeclidinium 62.5 mcg/actuation 1 inh PO DAILY 30 days #30 caps 02/01/21 blister powder for inhalation (Incruse Ellipta) atorvastatin 80 mg tablet 80 mg PO DAILY #90 tabs 04/01/21 albuterol sulfate 2.5 mg/3 mL 2.5 mg (3 mL) inhalation Q4H PRN 01/03/22 (0.083 %) solution for nebulization shortness of breath or wheezing 30 days #180 mL albuterol sulfate 90 mcg/actuation 2 puff inhalation QID PRN 01/03/22 aerosol inhaler (Ventolin HFA) shortness of breath or wheezing 30 days #18 grams sennosides 8.6 mg capsule (senna) 17.2 mg (2 x 8.6 mg) PO BEDTIME 07/16/22 constipation 30 days #60 caps metoclopramide HCl 5 mg tablet 5 mg PO TID #90 tabs 08/12/22 omeprazole 40 mg capsule,delayed 40 mg PO BID 30 days #60 caps 08/12/22 release sucralfate 1 gram tablet 2 g (2 x 1 gram) PO DAILY 90 days 08/12/22 #180 tabs alcohol swabs 1 pad topical QIDACHS #100 ea 11/15/22 blood sugar diagnostic (FreeStyle #100 ea 11/15/22 Lite Strips) blood-glucose meter (FreeStyle #1 ea 11/15/22 Lite Meter kit) insulin glargine 100 unit/mL (3 40 unit (0.4 mL) subcut DAILY #15 11/15/22 mL) subcutaneous pen (Lantus mL Solostar U-100 Insulin) insulin lispro 100 unit/mL 1 sliding scale dose subcut 11/15/22 subcutaneous pen (Humalog KwikPen QIDACHS #15 mL (U-100) Insulin) lancets 28 gauge (FreeStyle #100 ea 11/15/22 Lancets) pen needle, diabetic 32 gauge x #100 ea 11/15/22 1/ fluticasone 250 mcg-salmeterol 50 1 ea PO Q12H #60 ea 01/08/23 mcg/dose blistr powdr for inhalation (Advair Diskus) cyclobenzaprine 5 mg tablet 5 mg PO TID PRN right rib pain 7 01/16/23 days #21 tabs metoprolol succinate 25 mg 25 mg PO BEDTIME #90 tabs 03/02/23 tablet,extended release 24 hr meclizine 50 mg tablet 50 mg PO TID PRN motion sickness 03/31/23 #10 tabs nitroglycerin 0.4 mg sublingual 0.4 mg sublingual Q5M #25 tabs 04/29/23 tablet budesonide 160 mcg-glycopyr 9 2 inh inhalation BID 30 days #10.7 04/30/23 mcg-formot 4.8 mcg/actuation HFA grams inhaler (Breztri Aerosphere) alirocumab 75 mg/mL subcutaneous 75 mg subcut Q2W #2 mL 07/15/23 pen injector (Praluent Pen) Allergies Allergy/AdvReac Type Severity Reaction Status Date / Time bee pollen [BEE STINGS] Allergy Unknown ANAPHYLAXIS Verified 06/18/23 14:17 morphine [MORPHINE] Allergy Unknown ITCHING Verified 06/18/23 14:17 [facility] Past Medical History Medical History (Updated 08/21/23 @ 15:52 by GREGORY Hernández) EDWIN on CPAP Chronic restrictive lung disease Chronic allergic rhinitis Asthma Other and unspecified hyperlipidemia Essential hypertension Type 2 diabetes mellitus with unspecified complications Atherosclerotic cardiovascular disease Surgical History (Updated 06/18/23 @ 17:22 by GABRIEL Donaldson) History of esophagogastroduodenoscopy (EGD) Hx of colonoscopy Family History Family History Mother HTN (hypertension) Heart disease Asthma Maternal Aunt Breast cancer Maternal Aunt Tumor Maternal Aunt Cancer Social History Social History Household Members: Spouse and Family Household Members Other:: 4 household members Housing: Apartment Do you presently have visiting nurse or other home services: No Alcohol intake: never Patient Tobacco Use Status: Never used Tobacco Advance Directives: No Advance Directives Information Provided: No service: No Physical Exam ED Vital Signs: BMI result Body Mass Index 35.7 Course Course Course Narrative: This is an RME: Additional HPI, ROS, PE not included below will be deferred to primary provider. This is a 36-jsjw-yfo-female, with a hx of diabetes, chronic back pain, migraine, hypertension, presenting to the emergency department with a complaint of right sided lower abdominal pain x 1 month, worsening today. Admits to having some urinary hesitancy. No nausea,vomiting, or diarrhea. mildly hypertensive at 176/93 Plan: UA, labs, CT abd/pelvis ordered. Reevaluation(s) Reevaluation #1: pt eloped prior to being fully evaluated by primary provider. Medical Decision Making Lab Data 08/10/23 15:04 08/10/23 15:04 Labs: Lab Results 08/10/23 08/10/23 Range/Units 15:04 16:44 WBC 10.5 (4.8-10.8) X10*3/uL RBC 4.95 (4.20-5.50) X10*6/uL Hgb 12.9 (12.0-16.0) g/dl Hct 41.2 (37.0-47.0) % MCV 83.2 (80.0-98.0) fL MCH 26.1 L (27.0-33.0) pg MCHC 31.3 (31.0-35.0) g/dl RDW 14.0 (11.0-16.0) % Plt Count 234 (160-400) X10*3/uL MPV 9.8 (9.4-12.3) fL Immature Gran % (Auto) 0.2 (0.0-0.4) % Neut % (Auto) 59.9 (45-73) % Lymph % (Auto) 31.6 (20-40) % [place] % (Auto) 5.0 (2-11) % Eos % (Auto) 2.7 (0-4) % Baso % (Auto) 0.6 (0-2) % Lymph # (Auto) 3.3 (1.2-4.9) X10*3/uL [place] # (Auto) 0.5 (0.1-1.2) X10*3/uL Eos # (Auto) 0.3 (0.0-0.4) X10*3/uL Baso # (Auto) 0.1 (0.0-0.2) X10*3/uL Abs Immat Gran (auto) 0.02 (0.00-0.03) X10*3/uL Absolute Neuts (auto) 6.3 (2.0-8.3) x10*3/uL Absolute Nucleated RBC 0.000 (0.0-0.012) X10*3/uL Nucleated RBC % (auto) 0.0 (0.0-0.2) /100WBC Sodium 143 (135-145) mmol/L Potassium 3.8 (3.3-5.1) mmol/L Chloride 108 (96-108) mmol/L Carbon Dioxide 24 (22-29) mmol/L Anion Gap 15 (12-20) BUN 13 (9-16) mg/dL Creatinine 0.74 (0.5-1.4) mg/dL Estim Creat Clear Calc 88.1 Estimated GFR > 60 Random Glucose 112 (60-115) mg/dL Calcium 9.9 (8.4-10.2) mg/dL Total Bilirubin 0.5 (0.0-1.0) mg/dL Direct Bilirubin 0.2 (0.0-0.5) mg/dL AST 32 H (5-31) U/L ALT 24 (0-31) U/L Alkaline Phosphatase 84 (39-117) U/L Total Protein 8.1 H (6.5-8.0) g/dL Albumin 4.3 (3.5-5.0) g/dL Lipase 34 (8-78) U/L Urine Color Dark Yellow Urine Appearance Clear Urine pH 6.0 (5.0-9.0) Ur Specific [place] >= 1.030 H (1.005-1.025) Urine Protein 30 (1+) H (Neg-Trace) mg/dL Urine Glucose (UA) Negative (Negative) mg/dL Urine Ketones Trace (Negative) mg/dL Urine Blood Negative (Negative) Urine Nitrite Negative (Negative) Ur Leukocyte Esterase Trace H (Negative) Urine RBC 0-2 (0-2) /HPF Urine WBC 11-20 H (0-5) /HPF Ur Squamous Epith Cells 11-20 (0-2) /HPF Urine Bacteria Trace (None Seen) Hyaline Casts 0-2 (0-2) /LPF Discharge Plan Discharge Clinical Impression: Abdominal pain Patient Disposition: Left W/O Completing Treatment Prescriptions: No Action amlodipine 10 mg tablet 10 mg PO DAILY 90 Days Qty: 90 1RF ezetimibe [Zetia] 10 mg tablet 10 mg PO DAILY 90 Days Qty: 90 1RF atorvastatin 80 mg tablet 80 mg PO DAILY Qty: 90 1RF albuterol sulfate 2.5 mg /3 mL (0.083 %) solution for nebulization 2.5 mg inhalation Q4H PRN (Reason: shortness of breath or wheezing) 30 Days Qty: 180 11RF albuterol sulfate [Ventolin HFA] 90 mcg/actuation HFA aerosol inhaler 2 puff inhalation QID PRN (Reason: shortness of breath or wheezing) 30 Days Qty: 18 11RF fluticasone propion-salmeterol [Advair Diskus] 250-50 mcg/dose blister with device 1 ea PO Q12H Qty: 60 11RF metoprolol succinate 25 mg tablet extended release 24 hr 25 mg PO BEDTIME Qty: 90 1RF nitroglycerin 0.4 mg tablet, sublingual 0.4 mg sublingual Q5M Qty: 25 5RF Praluent Pen 75 mg/mL pen injector 75 mg subcut Q2W Qty: 2 5RF Rx Instructions: inject into abdomen, thigh, or upper arm (deltoid muscle); rotate sites cyclobenzaprine 5 mg tablet 5 mg PO TID PRN (Reason: right rib pain) 7 Days Qty: 21 0RF pregabalin 200 mg capsule 1 cap PO BID Trulicity 1.5 mg/0.5 mL pen injector 1.5 mg subcut QWEEK simethicone 180 mg capsule 180 mg PO QID PRN (Reason: Abdominal Pain) Rx Instructions: after meals (DME) FreeStyle Lite Strips Strip Qty: 100 0RF Rx Instructions: Test four times a day or as directed. (DME) blood-glucose meter [FreeStyle Lite Meter] Kit Qty: 1 0RF Rx Instructions: As Directed alcohol swabs Pads, Medicated 1 pad TOPICAL QIDACHS Qty: 100 0RF Rx Instructions: Use four times a day or as directed. insulin lispro [Humalog KwikPen Insulin] 100 unit/mL insulin pen 1 sliding scale dose SUBCUT QIDACHS Qty: 15 0RF Rx Instructions: Blood Sugar: <150 - 0 units 151-200 - 4 units 201-250 - 6 units 251-300 - 8 units 301-350 - 12 units >350 - 15 units > 350, call your Doctor insulin glargine [Lantus Solostar U-100 Insulin] 100 unit/mL (3 mL) insulin pen 40 unit SUBCUT DAILY Qty: 15 0RF (DME) pen needle, diabetic 32 gauge x 1/4 needle Qty: 100 0RF Rx Instructions: Use four times a day or as directed. (DME) lancets [FreeStyle Lancets] 28 gauge misc Qty: 100 0RF Rx Instructions: Test four times a day or as directed. meclizine 50 mg tablet 50 mg PO TID PRN (Reason: motion sickness) Qty: 10 0RF aspirin 81 mg tablet,delayed release (DR/EC) 81 mg PO DAILY amitriptyline 100 mg tablet 200 mg PO BEDTIME cyanocobalamin (vitamin B-12) 1,000 mcg tablet 1,000 mcg PO DAILY axjclgpnnv-bdhjspfdcgenb-jnyo 50-325-40 mg tablet 1 tab PO TID PRN (Reason: Pain) mirtazapine 45 mg tablet 45 mg PO BEDTIME cholecalciferol (vitamin D3) 50 mcg (2,000 unit) capsule 50 mcg PO DAILY trazodone 100 mg tablet 100 mg PO BEDTIME topiramate 100 mg tablet 100 mg PO BID Incruse Ellipta 62.5 mcg/actuation blister with device 1 inh PO DAILY 30 Days Qty: 30 11RF epinephrine 0.3 mg/0.3 mL auto-injector 3 mg IM DIRECTED celecoxib 200 mg capsule 200 mg PO DAILY cetirizine 10 mg tablet 10 mg PO BEDTIME metformin 500 mg tablet extended release 24 hr 1,000 mg PO QAM clonazepam 1 mg tablet 1 mg PO BID PRN (Reason: Anxiety) senna 8.6 mg capsule 17.2 mg PO BEDTIME 30 Days Qty: 60 4RF venlafaxine 37.5 mg capsule,extended release 24hr 37.5 mg PO DAILY (DME) lancets [[facility]plus [facility] 33 gauge misc See Rx Instructions .ROUTE BID Qty: 100 Rx Instructions: As directed omeprazole 40 mg capsule,delayed release(DR/EC) 40 mg PO BID 30 Days Qty: 60 4RF sucralfate 1 gram tablet 2 g PO DAILY 90 Days Qty: 180 1RF metoclopramide HCl 5 mg tablet 5 mg PO TID Qty: 90 4RF (DME) nebulizers Misc See Rx Instructions .Route Rx Instructions: As directed fluticasone propionate 50 mcg/actuation spray,suspension 2 spray intranasal DAILY [facility] 160-9-4.8 mcg/actuation HFA aerosol inhaler 2 inh inhalation BID 30 Days Qty: 10.7 11RF Discharge Date/Time: 08/10/23 19:56
[2023-08-10 15:10] LABS: MANUAL DIFF FLAG NO
[2023-08-10 15:19] LABS: Basophils Absolute Auto 0.1 X10*3/uL (0.0-0.2); Basophils Percent Auto 0.6 % (0-2); Eosinophils Absolute Auto 0.3 X10*3/uL (0.0-0.4); Eosinophils Percent Auto 2.7 % (0-4); Hematocrit 41.2 % (37.0-47.0); Hemoglobin 12.9 g/dl (12.0-16.0); Imm Gran Abs Auto 0.02 X10*3/uL (0.00-0.03); Imm Gran Pct Auto 0.2 % (0.0-0.4); Lymphocytes Absolute Auto 3.3 X10*3/uL (1.2-4.9); Lymphocytes Percent Auto 31.6 % (20-40); Mean Corpuscular HGB Conc 31.3 g/dl (31.0-35.0); Mean Corpuscular Hemoglobin 26.1 pg (27.0-33.0); Mean Corpuscular Volume 83.2 fL (80.0-98.0); Mean Platelet Volume 9.8 fL (9.4-12.3); Monocytes Absolute Auto 0.5 X10*3/uL (0.1-1.2); Neutrophils Absolute Auto 6.3 x10*3/uL (2.0-8.3); Neutrophils Percent Auto 59.9 % (45-73); Platelet Count 234 X10*3/uL (160-400); Red Blood Count 4.95 X10*6/uL (4.20-5.50); White Blood Count 10.5 X10*3/uL (4.8-10.8)
[2023-08-10 15:26] LABS: Alanine Aminotransferase 24 U/L (0-31); Albumin Level 4.3 g/dL (3.5-5.0); Alkaline Phosphatase 84 U/L (39-117); Anion Gap 15 (12-20); Aspartate Amino Transferase 32 U/L (5-31); Bilirubin Direct 0.2 mg/dL (0.0-0.5); Bilirubin Total 0.5 mg/dL (0.0-1.0); Blood Urea Nitrogen 13 mg/dL (9-16); Calcium 9.9 mg/dL (8.4-10.2); Carbon Dioxide 24 mmol/L (22-29); Chloride 108 mmol/L (96-108); Creatinine Clr Calc Pharmacy 88.1; Estimated Glomerular Filt Rate > 60; Glucose Random 112 mg/dL (60-115); Lipase 34 U/L (8-78); Potassium 3.8 mmol/L (3.3-5.1); Sodium 143 mmol/L (135-145); Total Protein 8.1 g/dL (6.5-8.0)
[2023-08-10 16:55] LABS: Appearance Urine Clear; Color Urine Dark Yellow; Glucose Urine UA Negative (Negative); Leukocyte Esterase Urine Trace (Negative); Nitrite Urine Negative (Negative); Specific Gravity - Urine >= 1.030 (1.005-1.025); UMIC TRIGGER UACC YES; Urine Blood Negative (Negative); Urine Ketones Trace mg/dL (Negative); Urine Protein 30 (1+) mg/dL (Neg-Trace)
[2023-08-10 16:57] LABS: Bacteria Urine Trace (None Seen); Hyaline Casts Urine 0-2 /LPF (0-2); RBC Urine 0-2 /HPF (0-2); UACC Culture Trigger YES
== END 2023-08-10 19:56 | disposition left against medical advice (07) ==
LOC: HO.ED 19:51
PROVIDERS: Physician Assistant Medical; Emergency Provider Emergency Medicine; PCP Internal Medicine
DX: R10.31 Right lower quadrant pain (principal); Z79.899 Other long term (current) drug therapy
CPT/HCPCS: 36415; 74176; 80048; 80076; 81001; 83690; 85025; 87086; 99282; 99284

== ENCOUNTER 2023-10-07 11:23 | Outpatient (REF) | payer MEDICARE, MEDICAID, SELFPAY ==
--- NOTE | ~2023-10-07 | US_ITS ---
EXAMINATION: US PELVIS CLINICAL INFORMATION: Right lower quadrant pain. Postmenopausal. COMPARISON: CT abdomen/pelvis 08/10/2023 TECHNIQUE: Ultrasound of the pelvis is performed using both transabdominal and transvaginal transducers along with Doppler. Transvaginal imaging is performed due to inadequate visualization transabdominally. FINDINGS: Uterus: The uterus is anteverted and retroflexed. The uterus measures 6.0 x 2.4 x 3.5 cm. Uterine echotexture is heterogeneous. The endometrium is not well visualized. A fibroid measures 1.0 x 0.9 x 0.6. Adnexa: Both ovaries are visualized. There is no pelvic ascites or fluid collection. Right ovary measures 2.1 x 1.9 x 1.3 cm. Left ovary measures 1.7 x 0.8 x 0.9 cm. US/US pelvic and transvaginal IMPRESSION: Uterine fibroid.
== END 2023-10-07 11:24 | disposition home or self-care (01) ==
LOC: HO.US 11:23
PROVIDERS: PCP Internal Medicine; Visit Provider Nurse Practitioner Family
DX: R10.31 Right lower quadrant pain (principal)
CPT/HCPCS: 76830; 76856

== ENCOUNTER 2023-10-21 12:51 | Outpatient (AMB) | payer MEDICARE, MEDICAID, SELFPAY ==
[2023-10-21 12:54] VITALS: BMI 35.7
--- NOTE | 2023-10-21 12:54 | A.OFFVIS_ITS ---
Intake Vital Signs 10/21/23 12:54 Height 5 ft 6 in Weight 221 lb BMI 35.7 Intake Visit Reasons: Newprob-Right hip pain Intake Note: Ernie 67 year old female presents today for an evaluation of right hip pain. Patient reports pain started about 1 yr ago and has worsen since. States she has groin pain, has difficulty walking and lifting her leg to walk up stairs. Describes pain as a constant sharp pain in groin. Hx of O.A. Denies past injury or falls, no prior treatment. Allergies bee pollen [BEE STINGS] Allergy (Unknown, Verified 10/21/23 13:10) ANAPHYLAXIS morphine [MORPHINE] Allergy (Unknown, Verified 10/21/23 13:10) ITCHING Medication List - Last Reconciled 10/21/23 by Constantin Milian PA-C albuterol sulfate 2.5 mg (3 mL) inhalation Q4H PRN 30 days albuterol sulfate 90 mcg/actuation (Ventolin HFA) 2 puffs PO QID PRN alcohol swabs 1 pad topical QIDACHS alirocumab (Praluent Pen) 75 mg subcut Q2W amitriptyline 200 mg PO BEDTIME amlodipine 10 mg PO DAILY 90 days aspirin 81 mg PO DAILY atorvastatin 80 mg PO DAILY blood sugar diagnostic (FreeStyle Lite Strips) Test four times a day or as directed. blood-glucose meter (FreeStyle Lite Meter kit) As Directed ulsbwohwge-ujwzpheu-pnuzbneuam 160-9-4.8 mcg/actuation (Breztri Aerosphere) 2 inhalations inhalation BID 30 days awnbngavlc-kelocghydyboz-qtpd 50-325-40 mg 1 tab PO TID PRN celecoxib 200 mg PO DAILY cetirizine 10 mg PO BEDTIME cholecalciferol (vitamin D3) 50 mcg PO DAILY clonazepam 1 mg PO BID PRN cyanocobalamin (vitamin B-12) 1,000 mcg PO DAILY cyclobenzaprine 5 mg PO TID PRN 7 days dulaglutide (Trulicity) 1.5 mg subcut QWEEK epinephrine 3 mg IM DIRECTED ezetimibe (Zetia) 10 mg PO DAILY 90 days fluticasone propion-salmeterol 250-50 mcg/dose (Advair Diskus) 1 ea PO Q12H fluticasone propionate 50 mcg/actuation 2 sprays intranasal DAILY insulin glargine (Lantus Solostar U-100 Insulin) 40 units (0.4 mL) subcut DAILY insulin lispro (Humalog KwikPen (U-100) Insulin) 1 sliding scale dose subcut QIDACHS lancets (FreeStyle Lancets) Test four times a day or as directed. lancets (TRUEplus Lancets) As directed meclizine 50 mg PO TID PRN metformin ER 1,000 mg PO QAM metoclopramide HCl 5 mg PO TID metoprolol succinate ER 25 mg PO BEDTIME mirtazapine 45 mg PO BEDTIME nebulizers As directed nitroglycerin 0.4 mg sublingual Q5M omeprazole 40 mg PO BID 30 days pen needle, diabetic Use four times a day or as directed. pregabalin 1 cap PO BID sennosides (senna) 17.2 mg (2 x 8.6 mg) PO BEDTIME 30 days simethicone 180 mg PO QID PRN sucralfate 2 grams (2 x 1 gram) PO DAILY 90 days topiramate 100 mg PO BID trazodone 100 mg PO BEDTIME umeclidinium 62.5 mcg/actuation (Incruse Ellipta) 1 inh PO DAILY 30 days venlafaxine ER 37.5 mg PO DAILY HPI Newprob-Right hip pain HPI Details 67-year-old female who presents to the [facility] today with an business management specialist for evaluation of right hip pain for about an year. She states she has worsening constant sharp pain in her right hip which makes her difficult to walk or lift her leg up to use stairs. She denies any previous injury or falls and has not had any prior treatment. She has a history of OA. [facility] Medical History (Updated 10/21/23 @ 14:09 by Constantin Milian PA-C) EDWIN on CPAP Chronic restrictive lung disease Chronic allergic rhinitis Asthma Other and unspecified hyperlipidemia Essential hypertension Type 2 diabetes mellitus with unspecified complications Atherosclerotic cardiovascular disease Surgical History (Updated 06/18/23 @ 17:22 by GABRIEL Donaldson) History of esophagogastroduodenoscopy (EGD) Hx of colonoscopy Family History Mother HTN (hypertension) Heart disease Asthma Maternal Aunt Breast cancer Maternal Aunt Tumor Maternal Aunt Cancer Social History Household Members: Spouse and Family Household Members Other:: 4 household members Housing: Apartment Do you presently have visiting nurse or other home services: No Alcohol intake: never Patient Tobacco Use Status: Never used Tobacco service: No Review of Systems Const All systems reviewed & are unremarkable except as noted in HPI and below Physical Exam Vital Signs: BMI result Body Mass Index 35.7 Extrem Other: Right hip: Normal to inspection, ambulates with a slight limp. Has mild discomfort with internal and extension rotation of hip. No significant stiffness. Mild discomfort with hip flexion against resistance. NVI. Results Reviewed Results Reviewed: Xrays were obtained in the office today and personally reviewed by me of the right hip show moderate oa with osteophyte formation Assessment & Plan Assessment & Plan (1) Osteoarthritis of right hip: Code(s): M16.11 - Unilateral primary osteoarthritis, right hip Qualifiers: Osteoarthritis type: primary Qualified Code(s): M16.11 - Unilateral primary osteoarthritis, right hip (2) Tendonitis of right hip flexor: Code(s): M76.891 - Other specified enthesopathies of right lower limb, excluding foot Plan She was referred to physical therapy to work on strengthening exercises and she will also meet with Dr. Roberts to discuss options on whether she is a candidate for surgical intervention or not. She is content with this plan and will follow-up with Dr. Roberts. Orders: Orders XR pelvis 1-2V Today M25.559 - Pain in unspecified hip PT Evaluation and Treatment Today M16.11 - Unilateral primary osteoarthritis, right hip, M76.891 - Other specified enthesopathies of right lower limb, excluding foot Patient Instructions: Scribed for Constantin Milian PA-C, by Tello Varela medical orderly, on 10/21/2023 at 12:45 PM DEMETRICE. Constantin Cho PA-C, have personally reviewed and agree with the information entered by the scribe. Coding Level of Care Code Est Pt Level 3 (39329) Diagnoses Primary osteoarthritis of right hip M16.11 Osteoarthritis type: primary Tendonitis of right hip flexor M76.891
== END 2023-10-21 13:35 | disposition home or self-care (01) ==
PROVIDERS: PCP Internal Medicine; Visit Provider Physician Assistant
DX: M16.11 Unilateral primary osteoarthritis, right hip (principal); M76.891 Other specified enthesopathies of right lower limb, excluding foot
CPT/HCPCS: 99213

== ENCOUNTER 2023-10-21 12:51 | Outpatient (REF) | payer MEDICARE, MEDICAID, SELFPAY ==
--- NOTE | ~2023-10-21 | XR_ITS ---
EXAMINATION: XR PELVIS CLINICAL INFORMATION: Hip pain. COMPARISON: 08/10/2023 TECHNIQUE: AP view of the pelvis. FINDINGS: No fracture or malalignment. There is mild osteoarthritis in both hips characterized by acetabular osteophytes primarily. More moderate osteoarthritis is present in the SI joints. There is mild osteoarthritis at the pubic symphysis. Osseous fusion is evident in the lower lumbar spine and lumbosacral junction. No aggressive osseous lesions are identified. Enthesopathic spurs are present at the anterior-superior iliac spines, greater trochanters, and lesser trochanters. Multiple phleboliths in the pelvis. XR/XR pelvis 1-2V IMPRESSION: Mild osteoarthritis in the hips and more moderate osteoarthritis in the SI joints. No acute osseous findings.
== END 2023-10-21 12:52 | disposition home or self-care (01) ==
LOC: HO.HOSX 12:51
PROVIDERS: PCP Internal Medicine; Visit Provider Physician Assistant
DX: M16.11 Unilateral primary osteoarthritis, right hip (principal); M76.891 Other specified enthesopathies of right lower limb, excluding foot
CPT/HCPCS: 72170; 99212

== ENCOUNTER 2023-10-23 10:49 | Outpatient (AMB) | payer MEDICARE, MEDICAID, SELFPAY ==
--- NOTE | 2023-10-23 10:56 | MHC.OFFVIS ---
Intake Vital Signs 10/23/23 10:57 Height 5 ft 6 in Weight 226 lb BMI 36.5 BP 123/59 L Blood Pressure Location Rt brachial Position Sitting Pulse 80 Intake Visit Reasons: Abdominal pain Intake Note: Patient presents to in office visit today in follow up of abdominal pain. CC: Patient c/o occasional mid abdominal pain. Denies having other GI concerns today. Transportation Inspector Required: Yes Accompanied by: Self / Same As Patient Allergies bee pollen [BEE STINGS] Allergy (Unknown, Verified 10/23/23 11:00) ANAPHYLAXIS morphine [MORPHINE] Allergy (Unknown, Verified 10/23/23 11:00) ITCHING HPI Abdominal pain HPI Details Assessment & Plan (1) Davis's esophagus determined by biopsy: Comment: 01/2020 EGD SSBE not visualized but evident on biopsy, repeat in 2021 Code(s): K22.70 - Davis's esophagus without dysplasia Plan: [place] #declines She has been continuing on her Reglan 5 mg 3 times a day, and her Dexilant.? This is controlling her symptoms of early satiety-nausea & her GERD.? She also continues on sucralfate for chronic gastritis.? Obviously, this is a a co factor in her constipation.? However, we have not been able to get her off of this medication in the past. For this we have her on senna and simethicone. This has resolved her complain of bloating and she does not feel like we need to go any further with it. She still has some pain that tends to be in the right lower ribcage that radiates to the right flank. This does not appear to be related to the GI system. She does have a history of spinal arthritis and tells me a story about having spinal injections that left her too weak to walk and caused her to fall and injure her left leg. I do tell her that sometimes back problems as we age can be addressed more by stretching and physical therapy and conservative treatments. She is due to repeat EGD for SSBE survey. She is agreeable. Her asthma is controlled and she denies any cardiac but is seen by Dr. Freeman She denies any problems with anesthesia or sedation. No ID problems.. ROV after procedure. (2) Gastroparesis: Comment: Borderline gastric emptying study 2019 but the patient is quite symptomatic Code(s): K31.84 - Gastroparesis (3) GERD with esophagitis: Code(s): K21.00 - Gastro-esophageal reflux disease with esophagitis, without bleeding Qualifiers: Esophagitis bleeding: without hemorrhage Qualified Code(s): K21.00 - Gastro-esophageal reflux disease with esophagitis, without bleeding (4) Constipation: Code(s): K59.00 - Constipation, unspecified Medications: Refilled omeprazole 40 mg PO BID 30 d ays 60 caps 4RF K22.70 - Davis's esophagus without dysplasia sucralfate 2 grams (2 x 1 gra m) PO DAILY 90 day s 180 tabs 1RF K22.70 - Davis's esophagus without dysplasia metoclopramide HCl 5 mg PO TID 90 ta bs 4RF K31.84 - Gastropar esis simethicone aft er meals 180 mg PO QID 30 days 120 caps 6RF K59.00 - Constipat ion, unspecified LABS: X-RAY OF THE ABDOMEN NOT OBTAINED EGD BIOPSY TODAY'S VISIT [place] #Chrissy Braxton She continues on her Reglan 5 mg 3 times a day, her Dexilant once a day, her Carafate for chronic gastritis, and her senna and simethicone for constipation and bloating. She continues to be satisfied with her GI regimen in general. She was never contacted for the EGD for her Barretts esophagus surveillance even though this was ordered in August. I will send another note to the schedulers as it looks like a workload was never initiated. Return office visit in 6 months [facility] Medical History EDWIN on CPAP Chronic restrictive lung disease Chronic allergic rhinitis Asthma Other and unspecified hyperlipidemia Essential hypertension Type 2 diabetes mellitus with unspecified complications Atherosclerotic cardiovascular disease Surgical History History of esophagogastroduodenoscopy (EGD) Hx of colonoscopy Family History Mother HTN (hypertension) Heart disease Asthma Maternal Aunt Breast cancer Maternal Aunt Tumor Maternal Aunt Cancer Social History Household Members: Spouse and Family Household Members Other:: 4 household members Housing: Apartment Do you presently have visiting nurse or other home services: No Alcohol intake: never Patient Tobacco Use Status: Never used Tobacco service: No Review of Systems Const Denies fatigue, Denies fever(s), Denies night sweats, Denies poor appetite and Denies weight loss Eyes Details: glasses Reports requires corrective lenses ENT Reports Normal hearing present, Denies dental pain, Denies dysphagia, Denies hearing loss, Denies mouth pain, Denies odynophagia, Denies throat swelling, Denies tongue swelling and Reports other (Dentition adequate) Card Reports no additional complaints Resp Reports no additional complaints GI Denies abdominal pain, Denies melena, Reports bloating, Denies hematochezia, Reports constipation, Denies GI cramping, Denies dysphagia, Denies excessive flatus, Reports early satiety, Reports heartburn, Denies diarrhea, Denies nausea, Denies odynophagia, Denies vomiting and Denies hematemesis Skin/Breast Denies pruritus, Denies lesions, Denies rash and Denies jaundice Neuro Reports Normal hearing present and Denies Abnormal speech present Endo Denies fatigue Aller/Immun Denies throat swelling and Denies tongue swelling Physical Exam Vital Signs: Last Vital Signs Pulse 80 10/23/23 10:57 BP 123/59 L 10/23/23 10:57 BMI result Body Mass Index 36.5 Const General: cooperative, no acute distress, well developed and well groomed Nutritional Appearance: well nourished and obese Orientation/consciousness: oriented to person, oriented to place and oriented to time Limitations: No language barrier HEENT Head: Yes normocephalic and Yes atraumatic Eyes General: appearance normal, both eyes and all related structures Pupils: Equal, round and reactive pupils present Neck Neck: Yes normal visual inspection and Yes no lymphadenopathy Thyroid: Thyroid normal Resp Effort & Inspection: normal respiratory effort and able to speak in complete sentences Auscultation: clear to auscultation bilaterally Cardio Rate: regular rate Rhythm: regular rhythm Heart sounds: Normal, physiologic split S2 sound present Peripheral pulses: radial pulses present and posterior tibial pulses present GI Inspection: No distended, No Abdominal panniculus present and Yes obesity Palpation (GI): Soft to palpation, nontender, no guarding, not rigid and No hepatosplenomegaly present Percussion: Yes normal to percussion Auscultation: normal bowel sounds Rectal Exam - Female: deferred Skin General skin exam: no rashes or lesions noted, turgor normal, skin not dry, no jaundice, No spider nevi and no striae Rashes: no rashes Nails: normal Neuro General: oriented to person, oriented to place and oriented to time Cranial nerves: Yes Equal, round and reactive pupils present and Yes Normal hearing present Speech: No Abnormal speech present Extrem General: Yes normal to inspection, No clubbing, No cyanosis and No edema Psych Appearance: grossly normal and well kempt Mental Status: mental status grossly normal Speech and movement: Normal speech and movement present Affect: normal affect Attitude: cooperative Thought process: Normal thought process present and not confabulating Thought content: Normal thought content present Insight: Limited insight present (Psych) Judgement: Limited judgement present (Psych) Assessment & Plan Assessment & Plan (1) Davis's esophagus determined by biopsy: Comment: 01/2020 EGD SSBE not visualized but evident on biopsy, repeat in 2021 Code(s): K22.70 - Davis's esophagus without dysplasia (2) Gastroparesis: Comment: Borderline gastric emptying study 2019 but the patient is quite symptomatic Code(s): K31.84 - Gastroparesis (3) GERD with esophagitis: Code(s): K21.00 - Gastro-esophageal reflux disease with esophagitis, without bleeding Qualifiers: Esophagitis bleeding: without hemorrhage Qualified Code(s): K21.00 - Gastro-esophageal reflux disease with esophagitis, without bleeding (4) Bleeding hemorrhoids: Code(s): K64.9 - Unspecified hemorrhoids (5) Constipation: Code(s): K59.00 - Constipation, unspecified Plan EGD BIOPSY TODAY'S VISIT [place] #Chrissy Live She continues on her Reglan 5 mg 3 times a day, her Dexilant once a day, her Carafate for chronic gastritis, and her senna and simethicone for constipation and bloating. She continues to be satisfied with her GI regimen in general. She was never contacted for the EGD for her Barretts esophagus surveillance even though this was ordered in August. I will send another note to the schedulers as it looks like a workload was never initiated. Return office visit in 6 months Medications: New simethicone after meals 180 mg PO QID PRN 90 caps 6RF Abdominal Pain sodium,potassium,mag sulfates 17.5-3.13-1.6 gram (Suprep Bowel Prep Kit) 480 mL orally; FOR COLONOSCOPY PREP 354 mL 0RF bisacodyl (Dulcolax (bisacodyl)) 10 mg (2 x 5 mg) PO BEDTIME 2 days 4 tabs 0RF Refilled metoclopramide HCl 5 mg PO TID 90 tabs 4RF K31.84 - Gastroparesis omeprazole 40 mg PO BID 30 days 60 caps 4RF K22.70 - Davis's esophagus without dysplasia sennosides (senna) 17.2 mg (2 x 8.6 mg) PO BEDTIME 30 days 60 caps 4RF constipation K59.00 - Constipation, unspecified sucralfate 2 grams (2 x 1 gram) PO DAILY 90 days 180 tabs 1RF K22.70 - Davis's esophagus without dysplasia Coding Level of Care Code Est Pt Level 3 (50853) Diagnoses Davis's esophagus determined by biopsy K22.70 Gastroparesis K31.84 Gastroesophageal reflux disease with esophagitis without hemorrhage K21.00 Esophagitis bleeding: without hemorrhage Bleeding hemorrhoids K64.9 Constipation K59.00
[2023-10-23 10:57] VITALS: BP 123/59; PULSE 80; BMI 36.5
== END 2023-10-23 14:25 | disposition home or self-care (01) ==
PROVIDERS: PCP Internal Medicine; Visit Provider Nurse Practitioner
DX: K22.70 Barrett's esophagus without dysplasia (principal); K31.84 Gastroparesis; K21.00 Gastro-esophageal reflux disease with esophagitis, without bleeding; K64.9 Unspecified hemorrhoids; K59.00 Constipation, unspecified
CPT/HCPCS: 99213

== ENCOUNTER → 2023-10-23 10:49 | Outpatient (BNVA) | payer MEDICARE, MEDICAID, SELFPAY | PROVIDERS: PCP Internal Medicine; Visit Provider Nurse Practitioner | DX: K22.70 Barrett's esophagus without dysplasia (principal); K31.84 Gastroparesis; K21.00 Gastro-esophageal reflux disease with esophagitis, without bleeding; K64.9 Unspecified hemorrhoids; K59.00 Constipation, unspecified | CPT/HCPCS: 99212 ==

== ENCOUNTER 2023-10-29 12:53 | Outpatient (AMB) | payer MEDICARE, MEDICAID, SELFPAY ==
[2023-10-29 13:00] VITALS: BMI 36.0
--- NOTE | 2023-10-29 13:00 | A.OFFVIS_ITS ---
Intake Vital Signs 10/29/23 13:00 Height 5 ft 6 in Weight 223 lb BMI 36.0 Intake Visit Reasons: OV - Right Hip OA - Discuss YAHIR Intake Note: Naa is a 67 year old female who presents today for a follow up of her left hip OA, she was last seen with Constantin who wanted patient to see Dr. Roberts to discus surgical vs no surgical treatments. States she has groin pain, has difficulty walking and lifting her leg to walk up stairs Allergies bee pollen [BEE STINGS] Allergy (Unknown, Verified 10/29/23 13:02) ANAPHYLAXIS morphine [MORPHINE] Allergy (Unknown, Verified 10/29/23 13:02) ITCHING HPI OV - Right Hip OA - Discuss YAHIR HPI Details Naa is a 67 year old woman who presents to discuss her right hip OA. She complains of pain with daily activity, worse when using stairs or walking. her pain is localized to her groin. She would like to discuss surgery. She denies any prior treatment options. She cannot walk > 5 min without worsening limp She has groin pain that compromises her QOL. [facility] Medical History EDWIN on CPAP Chronic restrictive lung disease Chronic allergic rhinitis Asthma Other and unspecified hyperlipidemia Essential hypertension Type 2 diabetes mellitus with unspecified complications Atherosclerotic cardiovascular disease Surgical History History of esophagogastroduodenoscopy (EGD) Hx of colonoscopy Family History Mother HTN (hypertension) Heart disease Asthma Maternal Aunt Breast cancer Maternal Aunt Tumor Maternal Aunt Cancer Social History Household Members: Spouse and Family Household Members Other:: 4 household members Housing: Apartment Do you presently have visiting nurse or other home services: No Alcohol intake: never Patient Tobacco Use Status: Never used Tobacco service: No Review of Systems Const All systems reviewed & are unremarkable except as noted in HPI and below Physical Exam Vital Signs: BMI result Body Mass Index 36.0 Const General: no acute distress, alert and awake Orientation/consciousness: patient oriented x3 HEENT Head: Yes normocephalic and Yes atraumatic Eyes EOM: EOMs intact bilaterally Resp Effort & Inspection: normal respiratory effort and able to speak in complete sentences Cardio Jugular venous distension: no JVD Skin General skin exam: turgor normal Rashes: no rashes Neuro General: patient oriented x3 Extrem Other: + gait antalgia + Stinchfield +Impignement Psych Appearance: grossly normal Affect: normal affect Attitude: cooperative Results Reviewed Results Reviewed: I personally reviewed relevant radiographs Moderate right hip osteoarthritis Assessment & Plan Assessment & Plan (1) Osteoarthritis of right hip: Code(s): M16.11 - Unilateral primary osteoarthritis, right hip Qualifiers: Osteoarthritis type: primary Qualified Code(s): M16.11 - Unilateral primary osteoarthritis, right hip Plan: This is a 67-year-old woman with moderate hip arthritis. She walks with a gait and feels the quality of her life is diminished. Her range of motion and her hip is good but she definitely has reproducible groin pain that mimics her primary complaint. We discussed treatment options including surgery, injections, physical therapy and NSAIDs. She is already on NSAIDs and does not want to do more physical therapy. She would like to try an injection and so this was ordered. She will return to see me if her pain persists. Plan Scribed for Kirk Roberts MD by Rene Coto, medical imaging technician, on 10/29/23 at 1:15 PM, EST. Orders: Referrals Pain Management Referral M16.11 - Unilateral primary osteoarthritis, right hip Coding Level of Care Code Est Pt Level 4 (26880) Diagnoses Primary osteoarthritis of right hip M16.11 Osteoarthritis type: primary
== END 2023-10-29 14:06 | disposition home or self-care (01) ==
PROVIDERS: PCP Internal Medicine; Visit Provider Orthopaedic Surgery
DX: M16.11 Unilateral primary osteoarthritis, right hip (principal)
CPT/HCPCS: 99214

== ENCOUNTER → 2023-10-29 12:53 | Outpatient (BNVA) | payer MEDICARE, MEDICAID, SELFPAY | PROVIDERS: PCP Internal Medicine; Visit Provider Orthopaedic Surgery | DX: M16.11 Unilateral primary osteoarthritis, right hip (principal) | CPT/HCPCS: 99212 ==

== ENCOUNTER 2023-11-24 06:16 | Outpatient (REF) | payer MEDICARE, MEDICAID, SELFPAY ==
--- NOTE | ~2023-11-24 | FL_ITS ---
INDICATION: Intraoperative fluoroscopy. FLUOROSCOPY: Fluoroscopy Time: 22.1 seconds Dose/air kerma: 14.3 mGy FINDINGS: Multiple intraoperative fluoroscopic images are submitted during right hip injection. Correlation with operative report. Evaluation is limited secondary to fluoroscopic technique. IMPRESSION: Intra-operative fluoroscopic imaging provided by radiology during right hip injection. Please refer to operative note for further information.
== END 2023-11-24 06:17 | disposition home or self-care (01) ==
LOC: CF 06:16
PROVIDERS: Visit Provider Anesthesiology
DX: M16.11 Unilateral primary osteoarthritis, right hip (principal)
CPT/HCPCS: 20610; J2795; J3301; Q9967

== ENCOUNTER 2023-11-24 13:59 | Outpatient (AMB) | payer MEDICARE, MEDICAID, SELFPAY ==
--- NOTE | 2023-11-24 14:28 | A.OFFVIS_ITS ---
Intake Vital Signs 11/24/23 15:48 11/24/23 15:49 Height 5 ft 6 in 5 ft 6 in Weight 223 lb 223 lb BMI 36.0 36.0 BP 132/64 124/60 Blood Pressure Location Lt brachial Lt brachial Position Sitting Sitting Respiration 12 12 Pulse 93 88 Pulse Source Pulse Oximeter Pulse Oximeter Pulse Oximetry (%) 96 95 Oxygen Delivery Method Room Air Room Air Comment pre-op post-op Intake Visit Reasons: RIGHT HIP INJECTION Allergies bee pollen [BEE STINGS] Allergy (Unknown, Verified 11/24/23 15:51) ANAPHYLAXIS morphine [MORPHINE] Allergy (Unknown, Verified 11/24/23 15:51) ITCHING PFSH Medical History EDWIN on CPAP Chronic restrictive lung disease Chronic allergic rhinitis Asthma Other and unspecified hyperlipidemia Essential hypertension Type 2 diabetes mellitus with unspecified complications Atherosclerotic cardiovascular disease Surgical History History of esophagogastroduodenoscopy (EGD) Hx of colonoscopy Family History Mother HTN (hypertension) Heart disease Asthma Maternal Aunt Breast cancer Maternal Aunt Tumor Maternal Aunt Cancer Social History Household Members: Spouse and Family Household Members Other:: 4 household members Housing: Apartment Do you presently have visiting nurse or other home services: No Alcohol intake: never Patient Tobacco Use Status: Never used Tobacco service: No Physical Exam Vital Signs: Last Vital Signs Pulse 88 11/24/23 15:49 Resp 12 11/24/23 15:49 BP 124/60 11/24/23 15:49 Pulse Ox 95 11/24/23 15:49 Oxygen Delivery Method Room Air 11/24/23 15:49 BMI result Body Mass Index 36.0 Assessment & Plan Assessment & Plan (1) Osteoarthritis of right hip: Code(s): M16.11 - Unilateral primary osteoarthritis, right hip Qualifiers: Osteoarthritis type: primary Qualified Code(s): M16.11 - Unilateral primary osteoarthritis, right hip Plan: This is a 67-year-old woman with moderate hip arthritis. She walks with a gait and feels the quality of her life is diminished. Her range of motion and her hip is good but she definitely has reproducible groin pain that mimics her p rimary complaint. We discussed treatment options including surgery, injections, physical therapy and NSAIDs. She is already on NSAIDs and does not want to do more physical therapy. She would like to try an injection and so this was ordered. She will return to see me if her pain persists. Plan Right hip steroid injection. Informed consent was explained to the patient. All questions were explained and answered. The patient was taken inside of the operating room where she was positioned left lateral decubitus on operating table.. Time-out was performed delineating patient's name and date of , correct site, side, the nature of the procedure, patient's allergy, preoperative antibiotic if needed, need for VT prophylaxis.. All operating room staff was participating in OR time-out procedure. Right hip area of the patient was prepped with ChloraPrep and draped with sterile towels. C-arm was brought over the operating field and picture of left and right lateral views of the bilateral hip joints were delineated on the screen. The smaller joint silhouette was chosen as the target. Projection of the right trochanter to the skin was chosen as the initial needle insertion point. After that the skin and subcutaneous tissues was anesthetized with 2% lidocaine 2.5 mL. 22 gauge 5 in long needle was inserted through the skin and started to advance to the joint space under intermittent lateral and anterior posterior views. When needle entered the capsule of the joint small amount of the contrast was injected delineating intra-articular space. After that treatment solution containing 3 cc of lidocaine 2%, 2 cc of bupivacaine 0.5% and 40 mg of Kenalog was injected into the joint. The needle was withdrawn sterile dressing was applied.The patient tolerated procedure well. Orders: Orders FL guidance in treatment room Today M16.11 - Unilateral primary osteoarthritis, right hip Coding Level of Care Code Procedure Only Diagnoses Primary osteoarthritis of right hip M16.11 Osteoarthritis type: primary
[2023-11-24 15:48] VITALS: BP 132/64; PULSE 93; RESP 12; O2SAT 96; BMI 36.0
[2023-11-24 15:49] VITALS: BP 124/60; PULSE 88; RESP 12; O2SAT 95; BMI 36.0
== END 2023-11-24 15:43 | disposition home or self-care (01) ==
LOC: HO.PMCPRC 13:59
PROVIDERS: PCP Internal Medicine; Visit Provider Anesthesiology
DX: M16.11 Unilateral primary osteoarthritis, right hip (principal)
CPT/HCPCS: 20610; 77002

== ENCOUNTER 2023-12-21 13:17 | Outpatient (AMB) | payer MEDICARE, MEDICAID, SELFPAY ==
--- NOTE | 2023-12-21 13:35 | A.OFFVIS_ITS ---
Intake Vital Signs 12/21/23 13:44 Height 5 ft 6 in Weight 223 lb 4 oz BMI 36.0 BP 128/80 Blood Pressure Location Lt brachial Position Sitting Respiration 16 Pulse 80 Pulse Source Pulse Oximeter Pulse Oximetry (%) 95 Oxygen Delivery Method Room Air Intake Visit Reasons: RIGHT HIP INJECTION/11/24/23/confirmed Intake Note: Patient comes in for post-op appointment. Reports pain 01/16. Allergies bee pollen [BEE STINGS] Allergy (Unknown, Verified 12/21/23 13:43) ANAPHYLAXIS morphine [MORPHINE] Allergy (Unknown, Verified 12/21/23 13:43) ITCHING HPI HPI Comments History of Present Illness Details Naa is very pleasant 68 years old female who presents in my office with complains on pain in the lower lumbar spine today. She was referred to me by Dr. Roberts orthopedic surgery for the performance of the right hip intra- articular injection. Today she is here for her 1st appointment after the intra- articular hip injection. She reports very good injection results with absence of the pain in the right groin. However with the absence of the severe pain from the hip joint her pain in the lower back became more prominent. She reported to me that she had 5 surgeries in the back. She reported that the last surgery was about 5-6 years ago. We decided today that I will send her for evaluation of the lumbar spine and her pelvis to make conclusion on where the pain from the lower back is coming. Her medical problems include diabetes, asthma, hypertension , angina pectoris under observation of Dr. Freeman, morbid obesity. Her past surgical history is above-mentioned spinal surgeries. She denies smoking cigarettes drinking alcohol using recreational drugs. She is retired individual. [facility] Medical History EDWIN on CPAP Chronic restrictive lung disease Chronic allergic rhinitis Asthma Other and unspecified hyperlipidemia Essential hypertension Type 2 diabetes mellitus with unspecified complications Atherosclerotic cardiovascular disease Surgical History History of esophagogastroduodenoscopy (EGD) Hx of colonoscopy Family History Mother HTN (hypertension) Heart disease Asthma Maternal Aunt Breast cancer Maternal Aunt Tumor Maternal Aunt Cancer Social History (Reviewed 10/29/23 @ 13:01 by PERI Vanegas Household Members: Spouse and Family Household Members Other:: 4 household members Housing: Apartment Do you presently have visiting nurse or other home services: No Alcohol intake: never Patient Tobacco Use Status: Never used Tobacco service: No Review of Systems Const Denies night sweats and Reports weight gain ENT Denies change in voice, Denies lip swelling, Denies mouth pain, Reports nasal congestion, Reports nasal discharge and Denies tongue swelling Card Denies chest pain and Reports dyspnea on exertion Resp Reports cough, Reports dyspnea on exertion and Reports wheezing GI Denies abdominal pain Musc Reports as per HPI Neuro Denies Neuro-related abnormal movements Psych Reports as per HPI Leo/Lymph Denies easy bleeding and Denies lymphadenopathy Aller/Immun Denies lip swelling, Denies tongue swelling and Reports wheezing Physical Exam Vital Signs: Last Vital Signs Pulse 80 12/21/23 13:44 Resp 16 12/21/23 13:44 BP 128/80 12/21/23 13:44 Pulse Ox 95 12/21/23 13:44 Oxygen Delivery Method Room Air 12/21/23 13:44 BMI result Body Mass Index 36.0 Const General: no acute distress, alert and awake Orientation/consciousness: patient oriented x3 HEENT Head: Yes normocephalic and Yes atraumatic Eyes EOM: EOMs intact bilaterally Resp Effort & Inspection: normal respiratory effort and able to speak in complete sentences Cardio Jugular venous distension: no JVD Back/Spine/Pelvis Other: Tenderness on palpation in paraspinal spinal region of the lumbar spine in the projection of the upper sacral bone and lower lumbar vertebra. There are very well-healed 2 scars in the projection of approximately L2-L3 lumbar vertebra and approximately L4-S1 lumbar vertebra on the back. Skin General skin exam: turgor normal Rashes: no rashes Neuro General: patient oriented x3 Extrem Other: + gait antalgia + Stinchfield +Impignement Psych Appearance: grossly normal Affect: normal affect Attitude: cooperative Assessment & Plan Assessment & Plan (1) Postlaminectomy syndrome: Code(s): M96.1 - Postlaminectomy syndrome, not elsewhere classified Plan: (2) Osteoarthritis of right hip: Code(s): M16.11 - Unilateral primary osteoarthritis, right hip Qualifiers: Osteoarthritis type: primary Qualified Code(s): M16.11 - Unilateral primary osteoarthritis, right hip Plan: This is a 67-year-old woman with moderate hip arthritis. She walks with a gait and feels the quality of her life is diminished. Her range of motion and her hip is good but she definitely has reproducible groin pain that mimics her primary complaint. After the injection she reported excellent pain relief in the groin. However she is started to complain on pain in the lower lumbar spine and projection of the sacral bone. She reports radiation of the pain laterally to bilateral hips. I will schedule her for x-rays of the lumbar spine and pelvis. I needed to evaluate the levels of previous surgeries and presence of the hardware. I will see her in 1 week. (3) Chronic pain syndrome: Code(s): G89.4 - Chronic pain syndrome Plan: Orders: Orders XR lumbar spine 4V min Today M96.1 - Postlaminectomy syndrome, not elsewhere classified XR pelvis min 3V Today M96.1 - Postlaminectomy syndrome, not elsewhere classified Coding Level of Care Code New Pt Level 3 (75214) Diagnoses Postlaminectomy syndrome M96.1 Primary osteoarthritis of right hip M16.11 Osteoarthritis type: primary Chronic pain syndrome G89.4
[2023-12-21 13:44] VITALS: BP 128/80; PULSE 80; RESP 16; O2SAT 95; BMI 36.0
== END 2023-12-21 14:02 | disposition home or self-care (01) ==
PROVIDERS: PCP Internal Medicine; Referring Provider Orthopaedic Surgery; Visit Provider Anesthesiology
DX: M96.1 Postlaminectomy syndrome, not elsewhere classified (principal); M16.11 Unilateral primary osteoarthritis, right hip; G89.4 Chronic pain syndrome
CPT/HCPCS: 99213

== ENCOUNTER 2023-12-21 13:17 | Outpatient (REF) | payer MEDICARE, MEDICAID, SELFPAY ==
--- NOTE | ~2023-12-21 | XR_ITS ---
EXAMINATION: XR PELVIS CLINICAL INFORMATION: Postlaminectomy syndrome, not elsewhere classified COMPARISON: AP pelvis 10/21/2023 TECHNIQUE: AP view of the pelvis. FINDINGS: No fracture or misalignment. There is mild osteoarthritis in both hips characterized by acetabular osteophytes primarily. There is moderate change of the sacroiliac joints and mild degenerative change of the pubic symphysis. Osseous fusion is evident in the lower lumbar spine and lumbosacral junction. No aggressive osseous lesions are identified. Enthesopathic spurs are present at the anterior-superior iliac spines, greater trochanters and lesser trochanters. Multiple phleboliths are seen within the pelvis. XR/XR pelvis 1-2V IMPRESSION: 1. Mild osteoarthritis of the hips. 2. Moderate degenerative change of the sacroiliac joints. 3. No acute bony abnormality.
--- NOTE | ~2023-12-21 | XR_ITS ---
EXAMINATION: XR LUMBOSACRAL SPINE WITH OBLIQUES CLINICAL INFORMATION: Post left pneumonectomy syndrome, not elsewhere classified COMPARISON: Same-day AP pelvis TECHNIQUE: AP, both oblique, and lateral views of the lumbar spine. Lateral view of the lumbosacral junction. FINDINGS: 5 nonrib-bearing lumbar-type vertebral bodies. The height of vertebral bodies is well-maintained. There is evidence of prior L3, L4 and L5 laminectomy. There is fusion at the L5-S1 disc space. There is bony bridging of the transverse processes of L4, L5 and S1. There is severe degenerative facet joint disease from L3 through S1. There is mild retrolisthesis of L2 respect to L3 and L3 respect to L4. XR/XR lumbar spine 4V min IMPRESSION: 1. Status post L3, L4 and L5 laminectomy. 2. Fusion at L5-S1 and lateral bony fusion from L4 through S1 transverse processes. 3. Severe degenerative facet joint disease from L3 through S1.
== END 2023-12-21 13:18 | disposition home or self-care (01) ==
LOC: HO.XRAY 13:17
PROVIDERS: PCP Internal Medicine; Referring Provider Orthopaedic Surgery; Visit Provider Anesthesiology
DX: M96.1 Postlaminectomy syndrome, not elsewhere classified (principal); M54.50 Low back pain, unspecified; M16.11 Unilateral primary osteoarthritis, right hip; G89.4 Chronic pain syndrome
CPT/HCPCS: 72110; 72170; 99212

== ENCOUNTER 2023-12-23 12:24 | Outpatient (REF) | payer MEDICARE, MEDICAID, SELFPAY | END 2023-12-23 12:25 | disposition home or self-care (01) | LOC: HO.HHCL 12:24 | PROVIDERS: Visit Provider Internal Medicine | DX: R10.30 Lower abdominal pain, unspecified (principal) | CPT/HCPCS: 87086 ==

== ENCOUNTER 2023-12-24 12:55 | Outpatient (AMB) | payer MEDICARE, MEDICAID, SELFPAY ==
--- NOTE | 2023-12-24 12:58 | A.OFFVIS_ITS ---
Intake Vital Signs 12/24/23 12:59 Height 5 ft 6 in Weight 226 lb 10.163 oz BMI 36.6 BP 130/72 Blood Pressure Location Lt brachial Position Sitting Pulse 82 Pulse Source Pulse Oximeter Intake Visit Reasons: 6 mth f/up Casting Carrier Required: Yes Casting Carrier Language: Ruffling Machine Operator Name: cinthia pena [id number] Allergies bee pollen [BEE STINGS] Allergy (Unknown, Verified 12/24/23 13:01) ANAPHYLAXIS morphine [MORPHINE] Allergy (Unknown, Verified 12/24/23 13:01) ITCHING Medication List - Last Reconciled 12/24/23 by GABRIEL Donaldson albuterol sulfate 2.5 mg (3 mL) inhalation Q4H PRN 30 days albuterol sulfate 90 mcg/actuation (Ventolin HFA) 2 puffs PO QID PRN alcohol swabs 1 pad topical QIDACHS alirocumab (Praluent Pen) 75 mg subcut Q2W amitriptyline 200 mg PO BEDTIME amlodipine 10 mg PO DAILY 90 days aspirin 81 mg PO DAILY atorvastatin 80 mg PO DAILY bisacodyl (Dulcolax (bisacodyl)) 10 mg (2 x 5 mg) PO BEDTIME 2 days blood sugar diagnostic (FreeStyle Lite Strips) Test four times a day or as directed. blood-glucose meter (FreeStyle Lite Meter kit) As Directed Breo Ellipta 200-25 mcg/dose (fluticasone furoate-vilanterol) 1 inh inhalation DAILY 30 days NS pyolefaeyg-oufnatgsecgvf-urux 50-325-40 mg 1 tab PO TID PRN celecoxib 200 mg PO DAILY cetirizine 10 mg PO BEDTIME cholecalciferol (vitamin D3) 50 mcg PO DAILY clonazepam 1 mg PO BID PRN cyanocobalamin (vitamin B-12) 1,000 mcg PO DAILY cyclobenzaprine 5 mg PO TID PRN 7 days dulaglutide (Trulicity) mg subcut epinephrine 3 mg IM DIRECTED ezetimibe (Zetia) 10 mg PO DAILY 90 days fluticasone propion-salmeterol 250-50 mcg/dose (Advair Diskus) 1 ea PO Q12H fluticasone propionate 50 mcg/actuation 2 sprays intranasal DAILY insulin glargine (Lantus Solostar U-100 Insulin) 40 units (0.4 mL) subcut DAILY insulin lispro (Humalog KwikPen (U-100) Insulin) 1 sliding scale dose subcut QIDACHS lancets (FreeStyle Lancets) Test four times a day or as directed. lancets (TRUEplus Lancets) As directed meclizine 50 mg PO TID PRN metformin ER 1,000 mg PO QAM metoclopramide HCl 5 mg PO TID metoprolol succinate ER 25 mg PO BEDTIME mirtazapine 45 mg PO BEDTIME nebulizers As directed nitroglycerin 0.4 mg sublingual Q5M omeprazole 40 mg PO BID 30 days pen needle, diabetic Use four times a day or as directed. pregabalin 150 mg PO BID sennosides (senna) 17.2 mg (2 x 8.6 mg) PO BEDTIME 30 days simethicone 180 mg PO QID PRN sodium,potassium,mag sulfates 17.5-3.13-1.6 gram (Suprep Bowel Prep Kit) 480 mL orally; FOR COLONOSCOPY PREP sucralfate 2 grams (2 x 1 gram) PO DAILY 90 days topiramate 100 mg PO BID trazodone 100 mg PO BEDTIME umeclidinium 62.5 mcg/actuation (Incruse Ellipta) 1 inh PO DAILY 30 days venlafaxine ER 37.5 mg PO DAILY HPI 6 mth f/up HPI Details Naa is a 68-year-old male past medical history of diabetes, hypertension, obstructive sleep apnea with CPAP use, coronary artery disease who presents for follow-up. Today she reports she has been doing well since her follow-up in June. She does report intermittent cramping in her left arm and hand. She gets this she will feel a discomfort into her left chest region. Does have facial grimace when palpating the shoulder tendon attachments. She does have intermittent discomfort in her chest which is vaguely described even with the use of a ore miner blasting. No concerning shortness of breath, palpitations, presyncope, syncope, or edema. She describes some unsteadiness at times however no falls. She reports compliance with CPAP. Takes meds as directed. [facility] Medical History EDWIN on CPAP Chronic restrictive lung disease Chronic allergic rhinitis Asthma Other and unspecified hyperlipidemia Essential hypertension Type 2 diabetes mellitus with unspecified complications Atherosclerotic cardiovascular disease Surgical History History of esophagogastroduodenoscopy (EGD) Hx of colonoscopy Family History Mother HTN (hypertension) Heart disease Asthma Maternal Aunt Breast cancer Maternal Aunt Tumor Maternal Aunt Cancer Social History Household Members: Spouse and Family Household Members Other:: 4 household members Housing: Apartment Do you presently have visiting nurse or other home services: No Alcohol intake: never Patient Tobacco Use Status: Never used Tobacco service: No Review of Systems Const All systems reviewed & are unremarkable except as noted in HPI and below ENT Denies dizziness Card Details: left arm/ hand cramping Reports chest pain, Denies chest pain at rest, Denies chest pain with activity, Denies rapid heart rate, Denies pedal edema, Denies edema, Denies leg edema, Denies lightheadedness, Denies palpitations, Denies dyspnea, Denies dyspnea on exertion and Denies orthopnea Resp Denies cough, Denies dyspnea and Denies dyspnea on exertion GI Denies hematochezia and Denies change in stool character Musc Details: unsteady at times Denies abnormal gait, Denies limited range of motion, Denies muscle cramps, Denies muscle weakness, Denies numbness, Denies radiating pain into limb, Denies stiffness and Denies tingling Neuro Denies abnormal gait, Denies dizziness, Denies numbness and Denies tingling Endo Denies palpitations Physical Exam Vital Signs: Last Vital Signs Pulse 82 12/24/23 12:59 BP 130/72 12/24/23 12:59 BMI result Body Mass Index 36.6 Const General: cooperative, comfortable and no acute distress Orientation/consciousness: patient oriented x3 Neck Neck: Yes normal visual inspection and Yes no JVD Resp Effort & Inspection: normal respiratory effort Auscultation: clear to auscultation bilaterally, no crackles, no rales, no rhonchi and no wheezes Cardio Jugular venous distension: no JVD Rate: regular rate Rhythm: regular rhythm Heart sounds: S1 normal heart sound present, S2 normal heart sound present, no gallops, no murmurs and no rubs GI Inspection: Yes normal to inspection Neuro General: patient oriented x3 Extrem General: Yes normal to inspection, No no pedal edema and No calf tenderness Psych Appearance: grossly normal Mental Status: mental status grossly normal Speech and movement: Normal speech and movement present Assessment & Plan Assessment & Plan (1) Chest discomfort: Code(s): R07.89 - Other chest pain Plan: Reports of chest discomfort, not clearly with exertion, in patient with multiple cardiac risk factors including hypertension, hyperlipidemia, diabetes, obesity. Nuclear stress test done 05/02/2021 showing mild intensity apical ischemia, EF 65%. A coronary CTA had shown moderate calcification of the LAD and circumflex, luminal patency could not be assessed adequately but no occlusion. Cardiac catheterization 06/02/2023 showed only mild LAD and circumflex disease and RCA 40% stenosis. Today she reports intermittent episodes of chest discomfort. Overall seems atypical for angina. No chest discomfort brought on by exertion. Continue medical management for stable CAD. Continue aspirin 81 mg daily indefinitely. Continue high-dose atorvastatin, Zetia, Praluent with ideal LDL goal less than 70. Last LDL on statin and Zetia was 98. Will plan for a fasting lipid profile, order entered and patient informed. Continue on metoprolol. Blood pressure well controlled, 132/72 and recheck done by me 122/68. Reviewed the ongoing need for good blood pressure, blood sugar and weight control. Activity as tolerated. Cardiology follow-up in 6 months, sooner if needed. (2) Atherosclerotic cardiovascular disease: Code(s): I25.10 - Atherosclerotic heart disease of [place] coronary artery without angina pectoris Plan: As above (3) S/P cardiac catheterization: Comment: 06/02/2023, left main normal LAD and left circumflex less than 30% stenosis, RCA ostial 40% stenosis Code(s): Z98.890 - Other specified postprocedural states Plan: As above (4) Essential hypertension: Code(s): I10 - Essential (primary) hypertension Plan: Well controlled. No med changes made (5) Other and unspecified hyperlipidemia: Code(s): E78.5 - Hyperlipidemia, unspecified Plan: As above Plan Time spent on chart review, documentation, interview and assessment Orders: Orders Lipid Panel Today I25.10 - Atherosclerotic heart disease of [place] coronary artery without angina pectoris Comprehensive Met. Panel Today I25.10 - Atherosclerotic heart disease of [place] coronary artery without angina pectoris Medications: New aspirin 81 mg PO DAILY 90 tabs 3RF Changed From alirocumab (Praluent Pen) inject into abdomen, thigh, or upper arm (deltoid muscle); rotate sites 75 mg subcut Q2W 2 mL 5RF To alirocumab (Praluent Pen) inject into abdomen, thigh, or upper arm (deltoid muscle); rotate sites 75 mg subcut Q2W 90 days 6 mL 3RF Refilled ezetimibe (Zetia) 10 mg PO DAILY 90 days 90 tabs 3RF Coding Level of Care Code Est Pt Level 4 (39517) Diagnoses Chest discomfort R07.89 Atherosclerotic cardiovascular disease I25.10 S/P cardiac catheterization Z98.890 Essential hypertension I10 Other and unspecified hyperlipidemia E78.5 Time Spent (min) 28
[2023-12-24 12:59] VITALS: BP 130/72; PULSE 82; BMI 36.6
== END 2023-12-24 13:45 | disposition home or self-care (01) ==
PROVIDERS: PCP Internal Medicine; Visit Provider Nurse Practitioner Family
DX: R07.89 Other chest pain (principal); I25.10 Atherosclerotic heart disease of native coronary artery without angina pectoris; Z98.890 Other specified postprocedural states; I10 Essential (primary) hypertension; E78.5 Hyperlipidemia, unspecified
CPT/HCPCS: 99214

== ENCOUNTER → 2023-12-24 12:55 | Outpatient (BNVA) | payer MEDICARE, MEDICAID, SELFPAY | PROVIDERS: PCP Internal Medicine; Visit Provider Nurse Practitioner Family | DX: R07.89 Other chest pain (principal); I25.10 Atherosclerotic heart disease of native coronary artery without angina pectoris; I10 Essential (primary) hypertension; E78.5 Hyperlipidemia, unspecified; Z98.890 Other specified postprocedural states | CPT/HCPCS: 99212 ==

== ENCOUNTER 2024-01-26 14:56 | Outpatient (REF) | payer MEDICARE, MEDICAID, SELFPAY ==
[2024-01-26 15:10] LABS: MANUAL DIFF FLAG NO
[2024-01-26 15:43] LABS: Basophils Percent Auto 0.4 % (0-2); Eosinophils Absolute Auto 0.3 X10*3/uL (0.0-0.4); Eosinophils Percent Auto 3.3 % (0-4); Hematocrit 38.5 % (37.0-47.0); Imm Gran Abs Auto 0.04 X10*3/uL (0.00-0.03); Imm Gran Pct Auto 0.4 % (0.0-0.4); Lymphocytes Absolute Auto 2.8 X10*3/uL (1.2-4.9); Lymphocytes Percent Auto 27.9 % (20-40); Mean Corpuscular HGB Conc 31.2 g/dl (31.0-35.0); Mean Corpuscular Hemoglobin 25.6 pg (27.0-33.0); Mean Corpuscular Volume 82.3 fL (80.0-98.0); Mean Platelet Volume 9.7 fL (9.4-12.3); Monocytes Absolute Auto 0.5 X10*3/uL (0.1-1.2); Monocytes Percent Auto 4.9 % (2-11); Neutrophils Absolute Auto 6.2 x10*3/uL (2.0-8.3); Neutrophils Percent Auto 63.1 % (45-73); Platelet Count 210 X10*3/uL (160-400); Red Blood Count 4.68 X10*6/uL (4.20-5.50); Red Cell Distribution Width 15.4 % (11.0-16.0); White Blood Count 9.9 X10*3/uL (4.8-10.8)
[2024-01-26 16:07] LABS: Anion Gap 13 (12-20); Blood Urea Nitrogen 12 mg/dL (9-16); Calcium 9.2 mg/dL (8.4-10.2); Carbon Dioxide 22 mmol/L (22-29); Chloride 108 mmol/L (96-108); Estimated Glomerular Filt Rate > 60; Glucose Random 239 mg/dL (60-115); Potassium 3.5 mmol/L (3.3-5.1); Sodium 139 mmol/L (135-145)
[2024-01-26 16:20] LABS: Erythrocyte Sedimentation Rate 28 MM/HR (0-20)
== END 2024-01-26 14:57 | disposition home or self-care (01) ==
LOC: HO.LAB 14:56
PROVIDERS: Visit Provider Psychiatry & Neurology Neurology
DX: G43.709 Chronic migraine without aura, not intractable, without status migrainosus (principal)
CPT/HCPCS: 36415; 80048; 85025; 85652

== ENCOUNTER 2024-02-19 13:27 | Outpatient (REF) | payer MEDICARE, MEDICAID, SELFPAY ==
--- NOTE | ~2024-02-19 | MM_ITS ---
EXAMINATION: MM SCREENING DIGITAL BREAST TOMOSYNTHESIS, BILATERAL CLINICAL INFORMATION: Screening. Asymptomatic. COMPARISON: Mammography: This study is compared with prior exams dating back to 2019. TECHNIQUE: Digital breast tomosynthesis is performed in both the craniocaudal and mediolateral oblique views along with computer-aided detection (CAD). Synthesized 2D images are generated from the tomosynthesis. FINDINGS: There are scattered areas of fibroglandular density (ACR BI-RADS breast composition Category b). There are no significant masses, abnormal calcifications, or other abnormalities. Few, unchanged, bilateral, benign calcifications are present in each breast. MM/MM tomosynthesis screening BI IMPRESSION: No mammographic evidence of malignancy. ASSESSMENT: BI-RADS BI-RADS 2 - Benign Findings RECOMMENDATION: Routine annual mammography screening. 1 year F/U This examination should not preclude the clinical evaluation of a suspicious palpable abnormality. This patient's information was entered into a reminder system with a target due date for their next mammogram.
== END 2024-02-19 13:28 | disposition home or self-care (01) ==
LOC: HO.MAMMO 13:27
PROVIDERS: PCP Internal Medicine; Visit Provider Internal Medicine
DX: Z12.31 Encounter for screening mammogram for malignant neoplasm of breast (principal)
CPT/HCPCS: 77063; 77067

== ENCOUNTER → 2024-02-19 13:45 | Outpatient (BNV) | payer MEDICARE, MEDICAID, SELFPAY | PROVIDERS: PCP Internal Medicine; Visit Provider Radiology Diagnostic Radiology | DX: Z12.31 Encounter for screening mammogram for malignant neoplasm of breast (principal) | CPT/HCPCS: 77063; 77067 ==

== ENCOUNTER 2024-03-04 11:00 | Outpatient (RCR) | payer MEDICARE, MEDICAID, SELFPAY ==
--- NOTE | 2024-02-23 13:47 | MHC.PT.EP ---
[facility] [place] Office [place] Office [place] Office [address] [phone] F: [phone] F: [phone] F: [phone] F: [phone] Physical Therapy Plan of Care Date of Evaluation: 02/23/24 Date of Surgery: Diagnosis: Unilateral primary osteoarthritis, right hip Other specified enthesopathies of right lower limb, excluding foot Assessment: Pt is a pleasant 68yo F who presents to PT with right hip pain. Pain is located to anterior right hip with occasional radicular symptoms to her right knee. She presents to PT with current impairments in pain, decreased right hip ROM, decreased hip/glute strength, soft tissue restrictions, and impaired gait. She is limited functionally by bending, lifting, prolonged standing, walking, and prolonged sitting. She is a good candidate for skilled PT in order to address current impairments to facilitate return to PLOF. She is recommended to be seen 2x/week for 4 weeks and will be reassessed at that time Frequency and Duration: The patient will be seen 2x/week for 4 weeks Short Term Goals: Pt will be I with HEP to promote self management of symptoms Pt will improve R hip AROM flexion to at least 90 degrees Transit Operations Supervisor Goals: Pt will achieve full ROM all planes of R hip Pt will improve R hip ABD strength to at least 4+/5 to assist with standing and walking Pt will tolerate walking > 20 min with minimal to no discomfort in her R hip Treatment Plan: Modalities to reduce pain, spasms and effusion. Manual therapy to restore motion and function. Therapeutic exercise to improve strength and flexibility. Neuromuscular re-education for posture and balance. Therapeutic activities to return to functional activities of daily living. Electronically signed by: Isabela Swanson, PT, DPT Please sign and return to therapist. Thank you for your referral.
--- NOTE | 2024-03-17 13:29 | MHC.PT.DC ---
[facility] [place] Office [place] Office [place] Office [address] Jonelle [address] [phone] F: [phone] F: [phone] F: [phone] F: [phone] Physical Therapy Discharge Report Diagnosis: Unilateral primary osteoarthritis, right hip Other specified enthesopathies of right lower limb, excluding foot Date of Surgery: Date of Evaluation: 02/23/24 Date of Discharge: 03/17/24 Treatments to Date: 2 Cancellations to Date: No Shows to Date: 3 Discharge Status: Visit Non-compliance Discharge Summary: Pt was seen for PT from 02/23/24-03/04/24. She has had multiple no-show appointments since SOC. She is being D/C from skilled PT per [facility] attendance policy and visit non-compliance. Pt current level of function unknown at this time Electronically signed by: Isabela Swanson, PT, DPT Please sign and return to therapist. Thank you for your referral.
== END 2024-03-17 13:29 | disposition home or self-care (01) ==
LOC: HO.PT 11:00
PROVIDERS: PCP Internal Medicine; Visit Provider Physician Assistant
DX: M16.11 Unilateral primary osteoarthritis, right hip (principal); M76.891 Other specified enthesopathies of right lower limb, excluding foot
CPT/HCPCS: 97110; 97140; 97162

== ENCOUNTER 2024-03-29 19:10 | Outpatient (REF) | payer MEDICARE, MEDICAID, SELFPAY | END 2024-03-29 19:11 | disposition home or self-care (01) | LOC: HO.HHCLNP 19:10 | PROVIDERS: Visit Provider Internal Medicine | DX: N39.0 Urinary tract infection, site not specified (principal); R31.9 Hematuria, unspecified | CPT/HCPCS: 87086; 87088; 87186 ==

== ENCOUNTER 2024-03-31 12:54 | Outpatient (REF) | payer MEDICARE, MEDICAID, SELFPAY ==
--- NOTE | ~2024-03-31 | US_ITS ---
EXAMINATION: US RETROPERITONEAL LIMITED (RENAL ONLY) CLINICAL INFORMATION: Recurrent UTI, left kidney stone (CT scan August 2023). COMPARISON: CT abdomen and pelvis without contrast 08/10/2023. X-ray abdomen complete 08/08/2022. Ultrasound abdomen complete with liver elastography 02/14/2019. TECHNIQUE: Real-time imaging of the kidneys. Limited visualization due to bowel gas. FINDINGS: RIGHT KIDNEY: 13.8 x 6.0 x 5.7 cm (SAG x AP x TRV). No hydronephrosis. No renal calculi. Renal cortical thickness is normal. Limited visualization. An 8.6 cm lower pole cyst with benign features. There is no indication for follow-up imaging. LEFT KIDNEY: 12.8 x 5.8 x 4.4 cm (SAG x AP x TRV). No hydronephrosis. No renal calculi. Renal cortical thickness is normal. Limited visualization. US/US renal BI IMPRESSION: No hydronephrosis. No renal calculi.
== END 2024-03-31 12:55 | disposition home or self-care (01) ==
LOC: HO.US 12:54
PROVIDERS: PCP Internal Medicine; Visit Provider Internal Medicine
DX: N39.0 Urinary tract infection, site not specified (principal); R31.9 Hematuria, unspecified; R39.9 Unspecified symptoms and signs involving the genitourinary system
CPT/HCPCS: 76775

== ENCOUNTER 2024-04-19 18:48 | Outpatient (REF) | payer MEDICARE, MEDICAID, SELFPAY | END 2024-04-19 18:49 | disposition home or self-care (01) | LOC: HO.HHCLNP 18:48 | PROVIDERS: Visit Provider Internal Medicine | DX: R39.9 Unspecified symptoms and signs involving the genitourinary system (principal) | CPT/HCPCS: 87086; 87088; 87186 ==

== ENCOUNTER 2024-06-28 15:23 | Outpatient (REF) | payer MEDICARE, MEDICAID, SELFPAY ==
[2024-06-28 16:46] LABS: Urine Cytology See Pathology rpt
== END 2024-06-28 15:24 | disposition home or self-care (01) ==
LOC: HO.LNP 15:23
PROVIDERS: PCP Internal Medicine; Visit Provider Nurse Practitioner Family
DX: Z13.9 Encounter for screening, unspecified (principal); N39.0 Urinary tract infection, site not specified
CPT/HCPCS: 51798; 81003; 87086; 87088; 87186; 88112; 99202

== ENCOUNTER 2024-06-28 15:23 | Outpatient (AMB) | payer MEDICARE, MEDICAID, SELFPAY ==
--- NOTE | 2024-06-28 15:25 | MHC.OFFVIS ---
Intake Visit Reasons: recurrent UTI/ microscopic hematuria Intake Note: New Patient presents for initial visit for recurrent uti and microscopic hematuria Urology Medications: none Blood Thinner: aspirin PVR: 0ml's Helium Arc Welder Name: [id number] Allergies bee pollen [BEE STINGS] Allergy (Unknown, Verified 06/28/24 16:12) ANAPHYLAXIS morphine [MORPHINE] Allergy (Unknown, Verified 06/28/24 16:12) ITCHING Medication List - Last Reconciled 06/28/24 by AJ Delatorre- albuterol sulfate 2.5 mg (3 mL) inhalation Q4H PRN 30 days albuterol sulfate 90 mcg/actuation (Ventolin HFA) 2 puffs PO QID PRN alcohol swabs 1 pad topical QIDACHS alirocumab (Praluent Pen) 75 mg subcut Q2W 90 days amitriptyline 200 mg PO BEDTIME amlodipine 10 mg PO DAILY 90 days aspirin 81 mg PO DAILY atorvastatin 80 mg PO DAILY bisacodyl (Dulcolax (bisacodyl)) 10 mg (2 x 5 mg) PO BEDTIME 2 days blood sugar diagnostic (FreeStyle Lite Strips) Test four times a day or as directed. blood-glucose meter (FreeStyle Lite Meter kit) As Directed Breo Ellipta 200-25 mcg/dose (fluticasone furoate-vilanterol) 1 inh inhalation DAILY 30 days NS [id number]-[id number]-hxiv 50-325-40 mg 1 tab PO TID PRN celecoxib 200 mg PO DAILY cetirizine 10 mg PO BEDTIME cholecalciferol (vitamin D3) 50 mcg PO DAILY clonazepam 1 mg PO BID PRN cyanocobalamin (vitamin B-12) 1,000 mcg PO DAILY cyclobenzaprine 5 mg PO TID PRN 7 days dulaglutide (Trulicity) mg subcut epinephrine 3 mg IM DIRECTED ezetimibe (Zetia) 10 mg PO DAILY 90 days fluticasone propion-salmeterol 250-50 mcg/dose (Advair Diskus) 1 ea PO Q12H fluticasone propionate 50 mcg/actuation 2 sprays intranasal DAILY insulin glargine (Lantus Solostar U-100 Insulin) 40 units (0.4 mL) subcut DAILY insulin lispro (Humalog KwikPen (U-100) Insulin) 1 sliding scale dose subcut QIDACHS lancets (FreeStyle Lancets) Test four times a day or as directed. lancets (TRUEplus Lancets) As directed meclizine 50 mg PO TID PRN metformin ER 1,000 mg PO QAM metoclopramide HCl 5 mg PO TID metoprolol succinate ER 25 mg PO BEDTIME mirtazapine 45 mg PO BEDTIME nebulizers As directed nitroglycerin 0.4 mg sublingual Q5M omeprazole 40 mg PO BID pen needle, diabetic Use four times a day or as directed. pregabalin 150 mg PO BID sennosides (senna) 17.2 mg (2 x 8.6 mg) PO BEDTIME 30 days simethicone 180 mg PO QID PRN sodium,potassium,mag sulfates 17.5-3.13-1.6 gram (Suprep Bowel Prep Kit) 480 mL orally; FOR COLONOSCOPY PREP sodium,potassium,mag sulfates 17.5-3.13-1.6 gram (Suprep Bowel Prep Kit) DILUTE each bottle with 16oz of water; drink first bottle 5pm evening before procedure AND second bottle at 11pm; follow each bottle with at least 32 oz.of water within 1 hour after each bottle sucralfate 2 grams (2 x 1 gram) PO DAILY topiramate 100 mg PO BID trazodone 100 mg PO BEDTIME umeclidinium 62.5 mcg/actuation (Incruse Ellipta) 1 inh PO DAILY 30 days venlafaxine ER 37.5 mg PO DAILY HPI Comments Details: Naa is a pleasant 68 year old Singaporean speaking patient of who is accompanied by her granddaughter at todays office visit. She has a PMH of obstructive sleep apnea on CPAP, chronic restrictive lung disease, chronic allergic rhinitis, asthma, hypertension, type 2 diabetes, and ACD. She presents to the office today as a new patient for recurrent urinary tract infections. In discussion with the patient today she reports feeling after utilizing a restroom at [facility] she has been suffering from recurrent urinary tract infections. She reports last treatment ever urinary tract infection was in April with a 7 day course of Bactrim b.i.d.. When asked she continues to report foul-smelling urine she otherwise denies urinary urgency, urinary frequency, incontinence, nocturia, hematuria, dysuria, changes to urinary stream, flank pain, fever, and or chills. She is happy with her current voiding parameters. In office urinalysis results reviewed with the patient today 1+ leukocytes positive nitrates. We discussed at length potential causes of recurrent urinary tract infections. PVR 0 mL. When asked she denies any issues with her bowels. She otherwise offers no other issues or concerns at this time. [facility] Medical History EDWIN on CPAP Chronic restrictive lung disease Chronic allergic rhinitis Asthma Other and unspecified hyperlipidemia Essential hypertension Type 2 diabetes mellitus with unspecified complications Atherosclerotic cardiovascular disease Surgical History History of esophagogastroduodenoscopy (EGD) Hx of colonoscopy Family History Mother HTN (hypertension) Heart disease Asthma Maternal Aunt Breast cancer Maternal Aunt Tumor Maternal Aunt Cancer Social History Household Members: Spouse and Family Household Members Other:: 4 household members Housing: Apartment Do you presently have visiting nurse or other home services: No Alcohol intake: never Patient Tobacco Use Status: Never used Tobacco service: No Review of Systems Eyes Reports no additional complaints ENT Reports as per HPI Card Reports as per HPI Resp Reports as per HPI GI Reports as per HPI Reports as per HPI Musc Reports no additional complaints Neuro Reports no additional complaints Psych Reports no additional complaints Endo Reports as per HPI Leo/Lymph Reports no additional complaints Aller/Immun Reports no additional complaints Physical Exam Const General: cooperative, healthy appearing, comfortable, no acute distress, well developed, alert and awake Nutritional Appearance: obese Orientation/consciousness: patient oriented x3 Limitations: no limitations HEENT Head: Yes normal to inspection, Yes normocephalic and Yes atraumatic Ears: hearing grossly normal bilaterally Eyes General: appearance normal, both eyes and all related structures Neck Neck: Yes normal visual inspection and Yes trachea midline Chest Chest palpation & inspection: normal inspection of the chest Resp Effort & Inspection: normal respiratory effort and able to speak in complete sentences Cardio Rate: regular rate GI Inspection: Yes normal to inspection General: Yes no CVA tenderness Back/Spine/Pelvis Back: no CVA tenderness Skin General skin exam: no rashes or lesions noted Neuro General: patient oriented x3 Extrem General: Yes normal to inspection Psych Appearance: grossly normal and well kempt Mental Status: mental status grossly normal Speech and movement: Normal speech and movement present and Clear speech present Affect: normal affect Attitude: cooperative Thought process: Normal thought process present Thought content: Normal thought content present Insight: Fair insight present (Psych) Judgement: Fair judgement present (Psych) Office Procedures Post Void Residual Post Residual Void Post Void Residual (PVR): 0 52884-Stgr Void Residual by ultrasound Results AMB Urinalysis, Automated UA Leukoctes 70 Bola/uL Last Edit by Experts 911 on 06/28/24 15:52 UA Nitrite Positive Last Edit by Experts 911 on 06/28/24 15:52 UA Urobilinogen 1 mg/dL Last Edit by Experts 911 on 06/28/24 15:52 UA Protein 15 mg/dL Last Edit by Experts 911 on 06/28/24 15:52 UA pH 6.0 Last Edit by Experts 911 on 06/28/24 15:52 UA Blood 0 Phil/uL Last Edit by Experts 911 on 06/28/24 15:52 UA Specific [place] 1.015 Last Edit by Experts 911 on 06/28/24 15:52 UA Ketone Negative Last Edit by Experts 911 on 06/28/24 15:52 UA Bilirubin 0 mg/dL Last Edit by Experts 911 on 06/28/24 15:52 UA Glucose 0 mg/dL Last Edit by Experts 911 on 06/28/24 15:52 Results Reviewed Results Reviewed: Laboratory Last Values Urine pH (Auto) 6.0 06/28/24 15:46 Specific [place] (Auto) 1.015 06/28/24 15:46 Urine Protein (Auto) 15 mg/dL 06/28/24 15:46 Glucose (UA)(Auto) 0 mg/dL 06/28/24 15:46 Urine Ketones (Auto) Negative 06/28/24 15:46 Urine Blood (Auto) 0 Phil/uL 06/28/24 15:46 Urine Nitrite (Auto) Positive 06/28/24 15:46 Urine Bilirubin (Auto) 0 mg/dL 08/20/24 15:46 Urine Urobilinogen (Auto) 1 mg/dL 06/28/24 15:46 Leukocyte Esterase (Auto) 70 Bola/uL 06/28/24 15:46 Assessment & Plan Assessment & Plan (1) Recurrent UTI: Code(s): N39.0 - Urinary tract infection, site not specified Category: Medical Plan In office urinalysis results reviewed with the patient today; as noted above; will send for urine culture. PVR 0ml's. Start Macrobid as discussed and prescribed. Discussed obtaining retroperitoneal ultrasound for further assessment evaluation. Discussed potential causes of recurrent urinary tract infections. Discussed possible near future microgen if symptoms continue. Discussed UTI prevention with D mannose supplement, vitamin-C, increasing fluid intake, behavioral therapy with timed voiding, perineal hygiene and postcoital voiding, and management of constipation with stool softeners and increased fiber intake. Follow-up in 1-3 months with imaging to be completed prior and PVR at next office visit; or sooner with any issues, concerns, and or questions. Orders: Orders AMB Post Void Residual by ultrasound Today Z13.9 - Encounter for screening, unspecified Urine Cytology Today Z13.9 - Encounter for screening, unspecified US retroperitoneal comp Today N39.0 - Urinary tract infection, site not specified AMB Urinalysis Automated Today Z13.9 - Encounter for screening, unspecified Urine Culture Today Z13.9 - Encounter for screening, unspecified Medications: New nitrofurantoin macrocrystal must administer with a meal/food 100 mg PO BID 28 caps 0RF 14 days N39.0 - Urinary tract infection, site not specified Patient Instructions: The patient had an opportunity to ask questions regarding the treatment plan. All questions were answered. Physical exam, labs, and imaging were discussed and reviewed in detail. As well as risks, benefits, and discussion of treatment choices. No major barriers to understanding were identified. The patient expressed understanding and agreement with the above treatment plan. The patient was made aware they should contact our office by phone for worsening of their current condition, the appearance of new symptoms, or with any questions or concerns. Compliance is encouraged with any medications and follow up testing that is ordered. It is a privilege to be allowed the opportunity to participate in? your urological care.? Again, if you have any questions or concerns If you have any questions or concerns please do not hesitate to contact me. The office is [phone]. This note is constructed using voice recognition software. While every effort has been made to ensure accuracy kettle girl errors may have been included. Yours sincerely, AJ Delatorre-JAVI Coding Level of Care Code New Pt Level 4 (85253) Diagnoses Recurrent UTI N39.0 CPT Codes Post Residual Void - PVR CPT Code: 38591-Xyfw Void Residual by ultrasound ([id number])
== END 2024-06-28 16:13 | disposition home or self-care (01) ==
PROVIDERS: PCP Internal Medicine; Visit Provider Nurse Practitioner Family
DX: N39.0 Urinary tract infection, site not specified (principal); Z13.9 Encounter for screening, unspecified
CPT/HCPCS: 99204; 99214

== ENCOUNTER 2024-06-28 16:07 | Outpatient (REF) | payer MEDICARE, MEDICAID, SELFPAY | END 2024-06-28 16:08 | disposition home or self-care (01) | LOC: HO.LAB 16:07 | PROVIDERS: Visit Provider Nurse Practitioner Family | DX: Z13.89 Encounter for screening for other disorder (principal) ==

== ENCOUNTER 2024-07-12 15:12 | Outpatient (AMB) | payer MEDICARE, MEDICAID, SELFPAY ==
--- NOTE | 2024-07-12 15:17 | A.OFFVIS_ITS ---
Vital Signs 07/12/24 15:18 Height 5 ft 6 in Weight 222 lb 10.67 oz BMI 35.9 BP 140/72 H Blood Pressure Location Lt brachial Position Sitting Pulse 91 Pulse Source Monitor Intake Visit Reasons: 6 month f/u Fell Cutter Required: Yes Fell Cutter Name: CARLITA [id number] Allergies bee pollen [BEE STINGS] Allergy (Unknown, Verified 06/28/24 16:12) ANAPHYLAXIS morphine [MORPHINE] Allergy (Unknown, Verified 06/28/24 16:12) ITCHING Medication List - Last Reconciled 07/12/24 by Dileep Freeman MD albuterol sulfate 2.5 mg (3 mL) inhalation Q4H PRN 30 days albuterol sulfate 90 mcg/actuation (Ventolin HFA) 2 puffs PO QID PRN alirocumab (Praluent Pen) 75 mg subcut Q2W amitriptyline 200 mg PO BEDTIME amlodipine 10 mg PO DAILY 90 days aspirin 81 mg PO DAILY atorvastatin 80 mg PO DAILY blood sugar diagnostic (FreeStyle Lite Strips) Test four times a day or as directed. blood-glucose meter (FreeStyle Lite Meter kit) As Directed txbahodkvt-egmzuiaouhfll-obhs 50-325-40 mg 1 tab PO TID PRN cetirizine 10 mg PO BEDTIME cholecalciferol (vitamin D3) 50 mcg PO DAILY clonazepam 1 mg PO BID PRN cyanocobalamin (vitamin B-12) 1,000 mcg PO DAILY cyclobenzaprine 5 mg PO TID PRN 7 days dulaglutide (Trulicity) mg subcut epinephrine 3 mg IM DIRECTED ezetimibe (Zetia) 10 mg PO DAILY 90 days fluticasone propionate 50 mcg/actuation 2 sprays intranasal DAILY insulin glargine (Lantus Solostar U-100 Insulin) 40 units (0.4 mL) subcut DAILY insulin lispro (Humalog KwikPen (U-100) Insulin) 1 sliding scale dose subcut QIDACHS lancets (FreeStyle Lancets) Test four times a day or as directed. lancets (TRUEplus Lancets) As directed metformin ER 1,000 mg PO QAM mirtazapine 45 mg PO BEDTIME nebulizers As directed omeprazole 40 mg PO BID pen needle, diabetic Use four times a day or as directed. pregabalin 150 mg PO BID sennosides (senna) 17.2 mg (2 x 8.6 mg) PO BEDTIME 30 days simethicone 180 mg PO QID PRN topiramate 100 mg PO BID trazodone 100 mg PO BEDTIME venlafaxine ER 37.5 mg PO DAILY HPI Comments Details: Naa returns for follow-up regarding coronary disease. In the past, due to chest pains, she has undergone stress testing, coronary CTA as well as cardiac catheterization. 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 Multiple cardiovascular risk factors. Generally feels okay. No new concerns. Some shortness of breath and fatigue with exertion but this is longstanding. [facility] Medical History EDWIN on CPAP Chronic restrictive lung disease Chronic allergic rhinitis Asthma Other and unspecified hyperlipidemia Essential hypertension Type 2 diabetes mellitus with unspecified complications Atherosclerotic cardiovascular disease Surgical History History of esophagogastroduodenoscopy (EGD) Hx of colonoscopy Family History Mother HTN (hypertension) Heart disease Asthma Maternal Aunt Breast cancer Maternal Aunt Tumor Maternal Aunt Cancer Social History Household Members: Spouse and Family Household Members Other:: 4 household members Housing: Apartment Do you presently have visiting nurse or other home services: No Alcohol intake: never Patient Tobacco Use Status: Never used Tobacco service: No Review of Systems Const Denies weakness ENT Denies dizziness Card Denies chest pain, Denies chest pain with activity, Denies syncope, Denies rapid heart rate, Denies pedal edema, Denies edema, Denies leg edema, Denies lightheadedness, Denies palpitations, Denies dyspnea, Denies dyspnea on exertion and Denies orthopnea Resp Denies cough, Denies dyspnea and Denies dyspnea on exertion GI Denies hematochezia and Denies change in stool character Musc Denies abnormal gait, Denies muscle cramps, Denies muscle weakness, Denies numbness, Denies radiating pain into limb and Denies tingling Neuro Denies abnormal gait, Denies dizziness, Denies syncope, Denies numbness, Denies tingling and Denies weakness Endo Denies palpitations Physical Exam Vital Signs: Last Vital Signs Pulse 91 07/12/24 15:18 BP 140/72 H 07/12/24 15:18 BMI result Body Mass Index 35.9 Const General: comfortable and no acute distress Orientation/consciousness: patient oriented x3 HEENT Other: Unremarkable Head: Yes normal to inspection Neck Neck: Yes normal visual inspection Chest Chest palpation & inspection: normal inspection of the chest Resp Auscultation: clear to auscultation bilaterally Cardio Palpation: normal PMI Heart sounds: S1 normal heart sound present, S2 normal heart sound present, no gallops, no murmurs and no rubs GI Palpation (GI): Soft to palpation Back/Spine/Pelvis Other: unremarkable Skin General skin exam: no rashes or lesions noted Neuro General: patient oriented x3 Extrem General: Yes normal to inspection Psych Mental Status: mental status grossly normal Office Procedures EKG Details: EKG with underlying sinus rhythm, 91/Min, right bundle-branch block pattern; leftward axis; [place]. [address]-[id number], Complete Assessment & Plan Assessment & Plan (1) Atherosclerotic cardiovascular disease: Code(s): I25.10 - Atherosclerotic heart disease of [place] coronary artery without angina pectoris Category: Medical Plan: Myocardial perfusion imaging study in the past showed mild intensity apical ischemia. Coronary CTA had shown moderate calcification the LAD and circumflex; luminal patency cannot be assessed adequately but there was no occlusion. Cardiac [id number] disease in the LAD and circumflex. Ostial RCA with approximately 40% stenosis. Nothing hemodynamically significant. Aggressive risk factor modification. Continue aspirin and statins. She is also listed to be on Praluent in her meds but she states she does not take it. Hence new script is being sent. Due to history of EpiPen use, we will stop metoprolol. Discussed about this with patient today. (2) RBBB: Code(s): I45.10 - Unspecified right bundle-branch block Category: Medical Plan: Will need to be followed for any progressive conduction system disease. (3) Type 2 diabetes mellitus with unspecified complications: Code(s): E11.8 - Type 2 diabetes mellitus with unspecified complications Category: Medical Plan: Listed to be on Trulicity, metformin. Previously, poor diabetes control. Last available hemoglobin A1c per PCP note, 7.5%. (4) Essential hypertension: Code(s): I10 - Essential (primary) hypertension Category: Medical Plan: Continue amlodipine. (5) Other and unspecified hyperlipidemia: Code(s): E78.5 - Hyperlipidemia, unspecified Category: Medical Plan: Listed to be on statins, Zetia, Praluent. However, patient states she does not take Praluent and hence a new script is being sent. Per PCP note, last LDL 91 mg/dL and triglycerides 181 mg/dL. HDL 46 mg/dL. (6) EDWIN on CPAP: Code(s): G47.33 - Obstructive sleep apnea (adult) (pediatric); Z99.89 - Dependence on other enabling machines and devices Category: Medical Plan x Medications: New alirocumab (Praluent Pen) inject into abdomen, thigh, or upper arm (deltoid muscle); rotate sites 75 mg subcut Q2W 2 mL 5RF E78.5 - Hyperlipidemia, unspecified Discontinued metoprolol succinate ER Discontinued Reason: Doctor's Order 25 mg PO BEDTIME 90 tabs 3RF I25.10 - Atherosclerotic heart disease of [place] coronary artery without angina pectoris Coding Level of Care Code Est Pt Level 4 (90045) Diagnoses Atherosclerotic cardiovascular disease I25.10 RBBB I45.10 Type 2 diabetes mellitus with unspecified complications E11.8 Essential hypertension I10 Other and unspecified hyperlipidemia E78.5 EDWIN on CPAP G47.33; Z99.89 CPT Codes EKG - CPT: 11846-Yaydajginkzzmkyhk, Complete ([id number])
[2024-07-12 15:18] VITALS: BP 140/72; PULSE 91; BMI 35.9
== END 2024-07-12 15:54 | disposition home or self-care (01) ==
PROVIDERS: PCP Internal Medicine; Visit Provider Internal Medicine
DX: I25.10 Atherosclerotic heart disease of native coronary artery without angina pectoris (principal); I45.10 Unspecified right bundle-branch block; E11.8 Type 2 diabetes mellitus with unspecified complications; I10 Essential (primary) hypertension; E78.5 Hyperlipidemia, unspecified; G47.33 Obstructive sleep apnea (adult) (pediatric); Z99.89 Dependence on other enabling machines and devices
CPT/HCPCS: 93010; 99214

== ENCOUNTER → 2024-07-12 15:12 | Outpatient (BNVA) | payer MEDICARE, MEDICAID, SELFPAY | PROVIDERS: PCP Internal Medicine; Visit Provider Internal Medicine | DX: I25.10 Atherosclerotic heart disease of native coronary artery without angina pectoris (principal); I45.10 Unspecified right bundle-branch block; I10 Essential (primary) hypertension; E11.8 Type 2 diabetes mellitus with unspecified complications; E78.5 Hyperlipidemia, unspecified; G47.33 Obstructive sleep apnea (adult) (pediatric); Z99.89 Dependence on other enabling machines and devices | CPT/HCPCS: 93005; 99212 ==

== ENCOUNTER 2024-07-15 11:21 | Outpatient (AMB) | payer MEDICARE, MEDICAID, SELFPAY ==
[2024-07-15 11:24] VITALS: BP 145/73; PULSE 94; BMI 35.2
--- NOTE | 2024-07-15 11:24 | A.OFFVIS_ITS ---
Vital Signs 07/15/24 11:24 Height 5 ft 6 in Weight 218 lb 4.122 oz BMI 35.2 BP 145/73 H Blood Pressure Location Rt brachial Position Sitting Pulse 94 Intake Visit Reasons: Follow up medication Allergies bee pollen [BEE STINGS] Allergy (Unknown, Verified 07/15/24 11:30) ANAPHYLAXIS morphine [MORPHINE] Allergy (Unknown, Verified 07/15/24 11:30) ITCHING HPI HPI Follow up medication: Details: Assessment & Plan (1) Davis's esophagus determined by biopsy: Comment: 01/2020 EGD SSBE not visualized but evident on biopsy, repeat in 2021 Code(s): K22.70 - Davis's esophagus without dysplasia Plan: [place] #declines She has been continuing on her Reglan 5 mg 3 times a day, and her Dexilant.? This is controlling her symptoms of early satiety-nausea & her GERD.? She also continues on sucralfate for chronic gastritis.? Obviously, this is a a co factor in her constipation.? However, we have not been able to get her off of this medication in the past. For this we have her on senna and simethicone. This has resolved her complain of bloating and she does not feel like we need to go any further with it. She still has some pain that tends to be in the right lower ribcage that radiates to the right flank. This does not appear to be related to the GI system. She does have a history of spinal arthritis and tells me a story about having spinal injections that left her too weak to walk and caused her to fall and injure her left leg. I do tell her that sometimes back problems as we age can be addressed more by stretching and physical therapy and conservative treatments. She is due to repeat EGD for SSBE survey. She is agreeable. Her asthma is controlled and she denies any cardiac but is seen by Dr. Freeman She denies any problems with anesthesia or sedation. No ID problems.. ROV after procedure. (2) Gastroparesis: Comment: Borderline gastric emptying study 2019 but the patient is quite symptomatic Code(s): K31.84 - Gastroparesis (3) GERD with esophagitis: Code(s): K21.00 - Gastro-esophageal reflux disease with esophagitis, without bleeding Qualifiers: Esophagitis bleeding: without hemorrhage Qualified Code(s): K21.00 - Gastro-esophageal reflux disease with esophagitis, without bleeding (4) Constipation: Code(s): K59.00 - Constipation, unspecified Medications: Refilled omeprazole 40 mg PO BID 30 days 60 caps 4RF K22.70 - Davis's esophagus without dysplasia sucralfate 2 grams (2 x 1 gram) PO DAILY 90 days 180 tabs 1RF K22.70 - Davis's esophagus without dysplasia metoclopramide HCl 5 mg PO TID 90 tabs 4RF K31.84 - Gastroparesis simethicone after meals 180 mg PO QID 30 days 120 caps 6RF K59.00 - Constipation, unspecified LABS: X-RAY OF THE ABDOMEN NOT OBTAINED EGD BIOPSY TODAY'S VISIT [place] #Sai Live Patient has been lost to follow-up since 10/2023 She declines to have colonoscopy as last time she did not tolerate the prep r/t severe N/V/D. She is agreeable to the EGD for SSBE. She has a complaint of increased bloating, no medication changes except abx for UTI and she says hair falling out. She says that it is worse throughout the day but she can not specifically link it to any type of food eaten or timing exactly. She denies any constipation or diarrhea. She has been on Trulicity for few years. Agrees to Cologuard her asthma and sleep apnea well controlled and she denies any cardiac problems. There are no prior problems with anesthesia or sedation. There are no infectious disease problems. ROV 8 weeks. [facility] Medical History (Updated 07/15/24 @ 13:47 by SAROJ Dill) Periumbilical abdominal pain EDWIN on CPAP Chronic restrictive lung disease Chronic allergic rhinitis Asthma Other and unspecified hyperlipidemia Essential hypertension Type 2 diabetes mellitus with unspecified complications Atherosclerotic cardiovascular disease Surgical History History of esophagogastroduodenoscopy (EGD) Hx of colonoscopy Family History Mother HTN (hypertension) Heart disease Asthma Maternal Aunt Breast cancer Maternal Aunt Tumor Maternal Aunt Cancer Social History Household Members: Spouse and Family Household Members Other:: 4 household members Housing: Apartment Do you presently have visiting nurse or other home services: No Alcohol intake: never Patient Tobacco Use Status: Never used Tobacco service: No Review of Systems Const Denies fatigue, Denies fever(s), Denies night sweats, Denies poor appetite and Denies weight loss Eyes Details: glasses Reports requires corrective lenses ENT Reports Normal hearing present, Denies dental pain, Denies dysphagia, Denies hearing loss, Denies mouth pain, Denies odynophagia, Denies throat swelling, Denies tongue swelling and Reports other (Dentition adequate) Card Reports no additional complaints Resp Reports no additional complaints GI Details: Denies abdominal pain, Denies melena, Reports bloating, Denies hematochezia, Denies constipation, Denies GI cramping, Denies dysphagia, Denies excessive flatus, Reports early satiety, Reports heartburn, Denies diarrhea, Denies nausea, Denies odynophagia, Denies vomiting and Denies hematemesis Skin/Breast Denies pruritus, Denies lesions, Denies rash and Denies jaundice Neuro Reports Normal hearing present and Denies Abnormal speech present Endo Denies fatigue Aller/Immun Denies throat swelling and Denies tongue swelling Physical Exam Vital Signs: Last Vital Signs Pulse 94 07/15/24 11:24 BP 145/73 H 07/15/24 11:24 BMI result Body Mass Index 35.2 Const General: cooperative, no acute distress, well developed and well groomed Nutritional Appearance: well nourished and obese centrally obese Orientation/consciousness: oriented to person, oriented to place and oriented to time Limitations: language barrier HEENT Head: Yes normocephalic and Yes atraumatic Eyes General: appearance normal, both eyes and all related structures Pupils: Equal, round and reactive pupils present Neck Neck: Yes normal visual inspection and Yes no lymphadenopathy Thyroid: Thyroid normal Resp Effort & Inspection: normal respiratory effort and able to speak in complete sentences Auscultation: clear to auscultation bilaterally Cardio Rate: regular rate Rhythm: regular rhythm Heart sounds: Normal, physiologic split S2 sound present Peripheral pulses: radial pulses present and posterior tibial pulses present GI Inspection: No distended, Yes Abdominal panniculus present and Yes obesity Palpation (GI): Soft to palpation, nontender, no guarding, not rigid and No hepatosplenomegaly present Percussion: Yes normal to percussion Auscultation: normal bowel sounds Rectal Exam - Female: deferred Skin General skin exam: no rashes or lesions noted, turgor normal, skin not dry, no jaundice, No spider nevi and no striae Rashes: no rashes Nails: normal Neuro General: oriented to person, oriented to place and oriented to time Cranial nerves: Yes Equal, round and reactive pupils present and Yes Normal hearing present Speech: No Abnormal speech present Extrem General: Yes normal to inspection, No clubbing, No cyanosis and No edema Psych Appearance: grossly normal and well kempt Mental Status: mental status grossly normal Speech and movement: Normal speech and movement present Affect: normal affect Attitude: cooperative Thought process: Normal thought process present and not confabulating Thought content: Normal thought content present Insight: Limited insight present (Psych) Judgement: Limited judgement present (Psych) Assessment & Plan Assessment & Plan (1) Pre-op examination: Code(s): Z01.818 - Encounter for other preprocedural examination Category: Medical (2) Alopecia: Code(s): L65.9 - Nonscarring hair loss, unspecified Category: Medical (3) Davis's esophagus determined by biopsy: Comment: 01/2020 EGD SSBE not visualized but evident on biopsy, repeat in 2021 Code(s): K22.70 - Davis's esophagus without dysplasia Category: Medical (4) Gastroparesis: Comment: Borderline gastric emptying study 2019 but the patient is quite symptomatic Code(s): K31.84 - Gastroparesis Category: Medical (5) GERD with esophagitis: Code(s): K21.00 - Gastro-esophageal reflux disease with esophagitis, without bleeding Category: Medical Qualifiers: Esophagitis bleeding: without hemorrhage Qualified Code(s): K21.00 - Gastro-esophageal reflux disease with esophagitis, without bleeding Plan [place] #Sai Live Patient has been lost to follow-up since 10/2023 She declines to have colonoscopy as last time she did not tolerate the prep r/t severe N/V/D. She is agreeable to the EGD for SSBE. She has a complaint of increased bloating, no medication changes except abx for UTI and she says hair falling out. She says that it is worse throughout the day but she can not specifically link it to any type of food eaten or timing exactly. She denies any constipation or diarrhea. She has been on Trulicity for few years. Agrees to Cologuard her asthma and sleep apnea well controlled and she denies any cardiac problems. There are no prior problems with anesthesia or sedation. There are no infectious disease problems. ROV 8 weeks. Orders: Orders EGD - GI Use Only 07/13/24 K22.70 - Davis's esophagus without dysplasia US abdomen complete Today L65.9 - Nonscarring hair loss, unspecified, Z01.818 - Encounter for other preprocedural examination TSH reflex Free T4 Today L65.9 - Nonscarring hair loss, unspecified, Z01.818 - Encounter for other preprocedural examination Comprehensive Met. Panel Today L65.9 - Nonscarring hair loss, unspecified, Z01.818 - Encounter for other preprocedural examination Medications: Refilled simethicone after meals 180 mg PO QID PRN 90 caps 6RF Abdominal Pain sennosides (senna) 17.2 mg (2 x 8.6 mg) PO BEDTIME 60 caps 4RF constipation 30 days K59.00 - Constipation, unspecified omeprazole 40 mg PO BID 60 caps 4RF K22.70 - Davis's esophagus without dysplasia Coding Level of Care Code Est Pt Level 4 (47492) Diagnoses Pre-op examination Z01.818 Alopecia L65.9 Davis's esophagus determined by biopsy K22.70 Gastroparesis K31.84 Gastroesophageal reflux disease with esophagitis without hemorrhage K21.00 Esophagitis bleeding: without hemorrhage
== END 2024-07-15 13:03 | disposition home or self-care (01) ==
PROVIDERS: PCP Internal Medicine; Visit Provider Nurse Practitioner
DX: K22.70 Barrett's esophagus without dysplasia (principal); K31.84 Gastroparesis; K21.00 Gastro-esophageal reflux disease with esophagitis, without bleeding; L65.9 Nonscarring hair loss, unspecified
CPT/HCPCS: 99214

== ENCOUNTER → 2024-07-15 11:21 | Outpatient (BNVA) | payer MEDICARE, MEDICAID, SELFPAY | PROVIDERS: PCP Internal Medicine; Visit Provider Nurse Practitioner | DX: Z01.818 Encounter for other preprocedural examination (principal); K22.70 Barrett's esophagus without dysplasia; K21.00 Gastro-esophageal reflux disease with esophagitis, without bleeding; K31.84 Gastroparesis; L65.9 Nonscarring hair loss, unspecified | CPT/HCPCS: 99212 ==

== ENCOUNTER 2024-07-19 10:41 | Outpatient (REF) | payer MEDICARE, MEDICAID, SELFPAY ==
[2024-07-19 13:58] LABS: Alanine Aminotransferase 36 U/L (0-31); Albumin Level 4.1 g/dL (3.5-5.0); Alkaline Phosphatase 109 U/L (39-117); Anion Gap 11 (12-20); Aspartate Amino Transferase 27 U/L (5-31); Bilirubin Total 0.3 mg/dL (0.0-1.0); Blood Urea Nitrogen 18 mg/dL (9-16); Calcium 9.6 mg/dL (8.4-10.2); Carbon Dioxide 23 mmol/L (22-29); Chloride 109 mmol/L (96-108); Cholesterol 202 mg/dL (<200); Estimated Glomerular Filt Rate > 60; Glucose Random 143 mg/dL (60-115); HDL Cholesterol 38 mg/dL (>40); LDL Cholesterol Calculated 131 mg/dL (<100); Sodium 139 mmol/L (135-145); Total Protein 7.7 g/dL (6.5-8.0); Triglycerides 167 mg/dL (<150)
[2024-07-19 14:12] LABS: TSH reflex Free T4 1.29 uIU/mL (0.32-4.0)
== END 2024-07-19 10:42 | disposition home or self-care (01) ==
LOC: HO.HHCL 10:41
PROVIDERS: Referring Provider Internal Medicine; Visit Provider Nurse Practitioner
DX: Z01.818 Encounter for other preprocedural examination (principal); E78.2 Mixed hyperlipidemia; I10 Essential (primary) hypertension; L65.9 Nonscarring hair loss, unspecified
CPT/HCPCS: 36415; 80053; 80061; 84443

== ENCOUNTER 2024-07-20 13:53 | Outpatient (REF) | payer MEDICARE, MEDICAID, SELFPAY ==
--- NOTE | ~2024-07-20 | XR_ITS ---
EXAMINATION: XR RIBS, RIGHT CLINICAL INFORMATION: Pain. Right posterior rib pain. No injury. COMPARISON: CT dated 08/10/2023 and chest radiograph dated 03/31/2023. TECHNIQUE: 3 views of the right ribs and a AP view of the chest were obtained. FINDINGS: Mild dependent atelectasis. No consolidation, pneumothorax, or pleural effusion. Atherosclerotic calcifications are present in the thoracic aorta with mild tortuosity. Pulmonary vasculature are normal. Degenerative spondylosis is present in the thoracic spine. There are nondisplaced fractures through the right third and fourth ribs laterally which are chronic, unchanged from 2021. No acute fractures are identified. Degenerative spondylosis is present in the thoracic spine with diffuse idiopathic skeletal hyperostosis (DISH). Osteoarthritis is present in the glenohumeral joints. XR/XR ribs RT min 3V w CXR1V IMPRESSION: 1. No acute pulmonary findings. 2. Chronic nondisplaced fractures of the right third and fourth ribs. No acute fractures are identified. Electronically signed by: Waylon Badillo MD 08/02/2024 11:47 PM EDT
== END 2024-07-20 13:54 | disposition home or self-care (01) ==
LOC: HO.HHCX 13:53
PROVIDERS: Visit Provider Internal Medicine
DX: R07.81 Pleurodynia (principal)
CPT/HCPCS: 71101

== ENCOUNTER 2024-07-21 11:41 | Outpatient (REF) | payer MEDICARE, MEDICAID, SELFPAY ==
[2024-07-21 12:36] LABS: Alanine Aminotransferase 32 U/L (0-31); Alkaline Phosphatase 113 U/L (39-117); Anion Gap 12 (12-20); Aspartate Amino Transferase 29 U/L (5-31); Bilirubin Total 0.3 mg/dL (0.0-1.0); Blood Urea Nitrogen 12 mg/dL (9-16); Calcium 9.4 mg/dL (8.4-10.2); Carbon Dioxide 24 mmol/L (22-29); Chloride 108 mmol/L (96-108); Estimated Glomerular Filt Rate > 60; Glucose Random 221 mg/dL (60-115); Potassium 3.9 mmol/L (3.3-5.1); Sodium 140 mmol/L (135-145); Total Protein 7.6 g/dL (6.5-8.0)
== END 2024-07-21 11:42 | disposition home or self-care (01) ==
LOC: HO.LAB 11:41
PROVIDERS: PCP Internal Medicine; Visit Provider Nurse Practitioner
DX: Z01.818 Encounter for other preprocedural examination (principal); L65.9 Nonscarring hair loss, unspecified
CPT/HCPCS: 36415; 80053

== ENCOUNTER 2024-08-08 10:52 | Outpatient (REF) | payer MEDICARE, MEDICAID, SELFPAY ==
--- NOTE | ~2024-08-08 | US_ITS ---
EXAMINATION: US PELVIS LIMITED (BLADDER) CLINICAL INFORMATION: Urinary tract infection, site not specified. COMPARISON: CT abdomen and pelvis 08/10/2023. TECHNIQUE: Real-time imaging of the bladder. FINDINGS: BLADDER: Well distended and normal. No bladder masses or diverticula are seen. Bilateral ureteral jets are demonstrated. Prevoid bladder volume is 515.4 mL. Postvoid bladder volume is 89.1 mL. US/US bladder IMPRESSION: Normal-appearing bladder with 89.1 mL postvoid residual. Electronically signed by: Gt Mcnally MD 09/22/2024 12:24 PM DEMETRICE
--- NOTE | ~2024-08-08 | US_ITS ---
EXAMINATION: US ABDOMEN COMPLETE CLINICAL INFORMATION: Bloating. COMPARISON: Renal ultrasound 03/31/2024. CT abdomen and pelvis 08/10/2023. Ultrasound abdomen complete with elastography 02/14/2019. TECHNIQUE: Real-time imaging of the abdominal viscera. FINDINGS: PANCREAS: Limited. The visualized pancreatic head and body are normal in appearance. The remainder of the pancreas is obscured from visualization by the overlying bowel gas. ABDOMINAL AORTA: The proximal segment is normal in caliber. The mid and distal segments are obscured by overlapping bowel gas. INFERIOR VENA CAVA: Visualized portions are normal. LIVER: There is hepatomegaly, with a longitudinal span of 20.0 cm. The liver contour is generally increased. Parenchymal echogenicity is normal. No focal hepatic lesion. There is no intrahepatic biliary duct dilatation seen. GALLBLADDER: Normal. The gallbladder is physiologically distended without evidence of stones, sludge, polyps, wall thickening or pericholecystic fluid. COMMON BILE DUCT: Normal in caliber measuring 0.3 cm in diameter. RIGHT KIDNEY: No hydronephrosis or renal calculi. The kidney measures 17.8 cm in maximum dimension. At the lower pole, a 9.4 x 8.1 x 8.4 cm benign, simple cyst is seen, which requires no imaging follow-up. LEFT KIDNEY: Normal. No hydronephrosis. No renal calculi or focal parenchymal lesions. The kidney measures 13.2 cm in maximum dimension. SPLEEN: Normal. The spleen measures 12.4 cm in maximum dimension. FREE FLUID: None. US/US abdomen complete IMPRESSION: 1. There is hepatomegaly. 2. There is generalized increase in hepatic echotexture, consistent with fatty infiltration or hepatocellular disease. Please correlate clinically. No focal hepatic mass or intrahepatic biliary dilatation is seen. 3. Technically limited ultrasound examination of the pancreas and abdominal great vessels. Electronically signed by: Harrison Kennedy MD 09/05/2024 09:39 AM EDT
== END 2024-08-08 10:53 | disposition home or self-care (01) ==
LOC: HO.US 10:52
PROVIDERS: Absent Provider Nurse Practitioner; PCP Internal Medicine; Visit Provider Nurse Practitioner Family
DX: Z01.818 Encounter for other preprocedural examination (principal); L65.9 Nonscarring hair loss, unspecified; N39.0 Urinary tract infection, site not specified; J45.40 Moderate persistent asthma, uncomplicated; K21.00 Gastro-esophageal reflux disease with esophagitis, without bleeding; J98.4 Other disorders of lung
CPT/HCPCS: 76700; 76857; 99212

== ENCOUNTER 2024-08-08 13:57 | Outpatient (AMB) | payer MEDICARE, MEDICAID, SELFPAY ==
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
[2024-08-08 14:03] VITALS: BP 128/76; PULSE 89; O2SAT 96; BMI 36.1
== END 2024-08-08 14:19 | disposition home or self-care (01) ==
PROVIDERS: PCP Internal Medicine; Visit Provider Hospitalist
DX: J45.40 Moderate persistent asthma, uncomplicated (principal); J30.9 Allergic rhinitis, unspecified; K21.00 Gastro-esophageal reflux disease with esophagitis, without bleeding; J98.4 Other disorders of lung; G47.33 Obstructive sleep apnea (adult) (pediatric); Z99.89 Dependence on other enabling machines and devices
CPT/HCPCS: 99214

== ENCOUNTER 2024-09-01 15:09 | Outpatient (REF) | payer MEDICARE, MEDICAID, SELFPAY ==
[2024-09-01 16:47] LABS: Appearance Urine Cloudy; Color Urine Yellow; Glucose Urine UA Negative (Negative); Leukocyte Esterase Urine Moderate (2+) (Negative); Nitrite Urine Negative (Negative); PH 6.5 (5.0-9.0); Specific Gravity - Urine 1.015 (1.005-1.025); UMIC TRIGGER UA YES; Urine Blood Trace (Negative); Urine Ketones Trace mg/dL (Negative); Urine Protein Negative (Neg-Trace)
[2024-09-01 16:52] LABS: Bacteria Urine 4+ (None Seen); Hyaline Casts Urine 0-2 /LPF (0-2); WBC Urine >50 /HPF (0-5)
== END 2024-09-01 15:10 | disposition home or self-care (01) ==
LOC: HO.HMGCLDS 15:09
PROVIDERS: PCP Internal Medicine; Visit Provider Nurse Practitioner Family
DX: N39.0 Urinary tract infection, site not specified (principal)
CPT/HCPCS: 81001; 87086; 87088; 87186

== ENCOUNTER 2024-09-27 11:35 | Outpatient (AMB) | payer MEDICARE, MEDICAID, SELFPAY ==
--- NOTE | 2024-09-27 11:42 | A.OFFVIS_ITS ---
Intake Visit Reasons: US follow up r/s(set) Intake Note: Patient presents today for follow up on: recurrent uti and microscopic hematuria Urology Medications: none Blood Thinner: aspirin PVR: 0ml's Court Liaison Required: Yes Court Liaison Services: Court Liaison Present Court Liaison Name: [id number] Accompanied by: Self / Same As Patient Allergies bee pollen [BEE STINGS] Allergy (Unknown, Verified 09/27/24 13:21) ANAPHYLAXIS morphine [MORPHINE] Allergy (Unknown, Verified 09/27/24 13:21) ITCHING Medication List - Last Reconciled 09/27/24 by AJ Delatorre- albuterol sulfate 2.5 mg (3 mL) inhalation Q4H PRN 30 days albuterol sulfate 90 mcg/actuation (Ventolin HFA) 2 puffs PO QID PRN alirocumab (Praluent Pen) 75 mg subcut Q2W amitriptyline 200 mg PO BEDTIME amlodipine 10 mg PO DAILY 90 days aspirin 81 mg PO DAILY atorvastatin 80 mg PO DAILY blood sugar diagnostic (FreeStyle Lite Strips) Test four times a day or as directed. blood-glucose meter (FreeStyle Lite Meter kit) As Directed cavsizmclp-savbhsaqrnjer-gwln 50-325-40 mg 1 tab PO TID PRN cetirizine 10 mg PO BEDTIME cholecalciferol (vitamin D3) 50 mcg PO DAILY clonazepam 1 mg PO BID PRN cyanocobalamin (vitamin B-12) 1,000 mcg PO DAILY cyclobenzaprine 5 mg PO TID PRN 7 days dulaglutide (Trulicity) mg subcut dulaglutide (Trulicity) mg subcut epinephrine 3 mg IM DIRECTED estradiol 0.01%(0.1mg/gram) (Estrace) 1 g vaginal 3XW 90 days ezetimibe (Zetia) 10 mg PO DAILY 90 days fluticasone propionate 50 mcg/actuation 2 sprays intranasal DAILY insulin glargine (Lantus Solostar U-100 Insulin) 40 units (0.4 mL) subcut DAILY insulin lispro (Humalog KwikPen (U-100) Insulin) 1 sliding scale dose subcut QIDACHS lancets (FreeStyle Lancets) Test four times a day or as directed. lancets (TRUEplus Lancets) As directed lidocaine 5% (Lidoderm) 1 patch topical DAILY 30 days lisinopril 2.5 mg PO DAILY metformin ER 1,000 mg PO QAM metoclopramide HCl 5 mg PO TID mirtazapine 45 mg PO BEDTIME nebulizers As directed nitrofurantoin macrocrystal 100 mg PO DAILY 10 days omeprazole 40 mg PO BID pen needle, diabetic Use four times a day or as directed. pregabalin 200 mg PO BID sennosides (senna) 17.2 mg (2 x 8.6 mg) PO BEDTIME 30 days simethicone 180 mg PO QID PRN sulfamethoxazole-trimethoprim 800-160 mg (Bactrim DS) 1 tab PO BID 14 days topiramate 100 mg PO BID trazodone 100 mg PO BEDTIME venlafaxine ER 37.5 mg PO DAILY HPI Comments Details: Naa is a pleasant 68 year old Marshallese speaking patient of Dr. Cabral. She has a PMH of obstructive sleep apnea on CPAP, chronic restrictive lung disease, chronic allergic rhinitis, asthma, hypertension, type 2 diabetes, and ACD. She presents to the office today for a follow-up. Of note, patient was seen approximately 3 months ago as a new patient for recurrent urinary tract infections at which time a retroperitoneal ultrasound was ordered for further assessment evaluation and patient was started on Bactrim as she was reporting UTI like symptoms and UA in office noted positive nitrates. Patient reports having completed Bactrim and had been doing well for 1-2 weeks status post completion of antibiotic therapy and then felt UTI like symptoms returned. She reports noting foul-smelling urine. She otherwise denies urinary urgency, urinary frequency, incontinence, nocturia, hematuria, dysuria, changes to urinary stream, flank pain, fever, and or chills. In office urinalysis results reviewed with the patient today 1+ leukocytes positive nitrates. We discussed at length potential causes of recurrent urinary tract infections. PVR 0 mL. When asked she denies any issues with her bowels. Recent retroperitoneal ultrasound results reviewed with the patient today. Bilateral kidneys with no hydronephrosis or renal calculi. Right kidney with benign simple cyst which requires no additional follow-up per radiology report. The bladder is well distended and normal. No bladder mass or diverticula is seen. Pre void bladder volume is a proximally 515 mL. Postvoid bladder volume is proximally 90 mL. We discussed near future in office cystoscopy for further assessment evaluation however patient with active urinary tract infection. We discussed UTI prevention at length. She otherwise offers no other issues or concerns at this time. [facility] Medical History Periumbilical abdominal pain EDWIN on CPAP Chronic restrictive lung disease Chronic allergic rhinitis Asthma Other and unspecified hyperlipidemia Essential hypertension Type 2 diabetes mellitus with unspecified complications Atherosclerotic cardiovascular disease Surgical History History of esophagogastroduodenoscopy (EGD) Hx of colonoscopy Family History Mother HTN (hypertension) Heart disease Asthma Maternal Aunt Breast cancer Maternal Aunt Tumor Maternal Aunt Cancer Social History Household Members: Spouse and Family Household Members Other:: 4 household members Housing: Apartment Do you presently have visiting nurse or other home services: No Alcohol intake: never Patient Tobacco Use Status: Never used Tobacco service: No Review of Systems Eyes Reports no additional complaints ENT Reports as per HPI Card Reports as per HPI Resp Reports as per HPI GI Reports as per HPI Reports as per HPI Musc Reports no additional complaints Neuro Reports no additional complaints Psych Reports no additional complaints Endo Reports as per HPI Leo/Lymph Reports no additional complaints Aller/Immun Reports no additional complaints Physical Exam Const General: cooperative, healthy appearing, comfortable, no acute distress, well developed, alert and awake Nutritional Appearance: obese Orientation/consciousness: patient oriented x3 Limitations: no limitations HEENT Head: Yes normal to inspection, Yes normocephalic and Yes atraumatic Ears: hearing grossly normal bilaterally Eyes General: appearance normal, both eyes and all related structures Neck Neck: Yes normal visual inspection and Yes trachea midline Chest Chest palpation & inspection: normal inspection of the chest Resp Effort & Inspection: normal respiratory effort and able to speak in complete sentences Cardio Rate: regular rate GI Inspection: Yes normal to inspection General: Yes no CVA tenderness Back/Spine/Pelvis Back: no CVA tenderness Skin General skin exam: no rashes or lesions noted Neuro General: patient oriented x3 Extrem General: Yes normal to inspection Psych Appearance: grossly normal and well kempt Mental Status: mental status grossly normal Speech and movement: Normal speech and movement present and Clear speech present Affect: normal affect Attitude: cooperative Thought process: Normal thought process present Thought content: Normal thought content present Insight: Fair insight present (Psych) Judgement: Fair judgement present (Psych) Office Procedures Post Void Residual Post Residual Void Post Void Residual (PVR): 0 [id number]-[id number] Void Residual by ultrasound Results AMB Urinalysis, Automated UA Leukoctes 70 Bola/uL Last Edit by [employer] on 09/27/24 12:19 UA Nitrite Last Edit by [employer] on 09/27/24 12:19 UA Urobilinogen 0.2 mg/dL Last Edit by [employer] on 09/27/24 12:19 UA Protein 0 mg/dL Last Edit by [employer] on 09/27/24 12:19 UA pH 7.5 Last Edit by [employer] on 09/27/24 12:19 UA Blood 0 Phil/uL Last Edit by [employer] on 09/27/24 12:19 UA Specific [place] 1.010 Last Edit by [employer] on 09/27/24 12:19 UA Ketone Last Edit by [employer] on 09/27/24 12:19 UA Bilirubin 0 mg/dL Last Edit by [employer] on 09/27/24 12:19 UA Glucose 0 mg/dL Last Edit by [employer] on 09/27/24 12:19 Results Reviewed Results Reviewed: Laboratory Last Values Urine pH (Auto) 7.5 09/27/24 12:13 Specific [place] (Auto) 1.010 09/27/24 12:13 Urine Protein (Auto) 0 mg/dL 09/27/24 12:13 Glucose (UA)(Auto) 0 mg/dL 09/27/24 12:13 Urine Blood (Auto) 0 Phil/uL 09/27/24 12:13 Urine Bilirubin (Auto) 0 mg/dL 09/27/24 12:13 Urine Urobilinogen (Auto) 0.2 mg/dL 09/27/24 12:13 Leukocyte Esterase (Auto) 70 Bola/uL 09/27/24 12:13 Date of Service: 08/08/24 EXAMINATION: FINDINGS: PANCREAS: Limited. The visualized pancreatic head and body are normal in appearance. The remainder of the pancreas is obscured from visualization by the overlying bowel gas. ABDOMINAL AORTA: The proximal segment is normal in caliber. The mid and distal segments are obscured by overlapping bowel gas. INFERIOR VENA CAVA: Visualized portions are normal. LIVER: There is hepatomegaly, with a longitudinal span of 20.0 cm. The liver contour is generally increased. Parenchymal echogenicity is normal. No focal hepatic lesion. There is no intrahepatic biliary duct dilatation seen. GALLBLADDER: Normal. The gallbladder is physiologically distended without evidence of stones, sludge, polyps, wall thickening or pericholecystic fluid. COMMON BILE DUCT: Normal in caliber measuring 0.3 cm in diameter. RIGHT KIDNEY: No hydronephrosis or renal calculi. The kidney measures 17.8 cm in maximum dimension. At the lower pole, a 9.4 x 8.1 x 8.4 cm benign, simple cyst is seen, which requires no imaging follow-up. LEFT KIDNEY: Normal. No hydronephrosis. No renal calculi or focal parenchymal lesions. The kidney measures 13.2 cm in maximum dimension. SPLEEN: Normal. The spleen measures 12.4 cm in maximum dimension. FREE FLUID: None. IMPRESSION: 1. There is hepatomegaly. 2. There is generalized increase in hepatic echotexture, consistent with fatty infiltration or hepatocellular disease. Please correlate clinically. No focal hepatic mass or intrahepatic biliary dilatation is seen. 3. Technically limited ultrasound examination of the pancreas and abdominal great vessels. EXAMINATION: US PELVIS LIMITED (BLADDER) FINDINGS: BLADDER: Well distended and normal. No bladder masses or diverticula are seen. Bilateral ureteral jets are demonstrated. Prevoid bladder volume is 515.4 mL. Postvoid bladder volume is 89.1 mL. IMPRESSION: Normal-appearing bladder with 89.1 mL postvoid residual. Assessment & Plan Assessment & Plan (1) Recurrent UTI: Code(s): N39.0 - Urinary tract infection, site not specified Category: Medical (2) Foul smelling urine: Code(s): R82.90 - Unspecified abnormal findings in urine Category: Medical (3) Renal cyst: Code(s): N28.1 - Cyst of kidney, acquired Category: Medical Plan In office urinalysis results reviewed the patient today; as noted above; will send for urine culture. Start Bactrim as discussed and prescribed. Start Estrace cream as discussed and prescribed. Recent retroperitoneal ultrasound results reviewed with the patient today; as noted above. We discussed near future in office cystoscopy given recurrent UTIs however patient with active infection. Discussed UTI prevention with D mannose supplement, vitamin-C, increasing fluid intake, behavioral therapy with timed voiding, perineal hygiene and postcoital voiding, and management of constipation with stool softeners and increased fiber intake. We discussed possible near future microgen for further assessment evaluation. Follow-up in 1 month with PVR; or sooner with any issues, concerns, and or questions. Orders: Orders AMB Post Void Residual by ultrasound Today N39.0 - Urinary tract infection, site not specified AMB Urinalysis Automated Today Z13.9 - Encounter for screening, unspecified Urine Culture Today N39.0 - Urinary tract infection, site not specified Medications: New sulfamethoxazole-trimethoprim 800-160 mg (Bactrim DS) 1 tab PO BID 14 days 28 tabs 0RF N39.0 - Urinary tract infection, site not specified estradiol 0.01%(0.1mg/gram) (Estrace) Apply pea-sized amount to urethra daily for 1 month. After 1 month apply 3 t imes a week 1 g vaginal 3XW 90 days 42.5 grams 3RF Patient Instructions: The patient had an opportunity to ask questions regarding the treatment plan. All questions were answered. Physical exam, labs, and imaging were discussed and reviewed in detail. As well as risks, benefits, and discussion of treatment choices. No major barriers to understanding were identified. The patient expressed understanding and agreement with the above treatment plan. The patient was made aware they should contact our office by phone for worsening of their current condition, the appearance of new symptoms, or with any questions or concerns. Compliance is encouraged with any medications and follow up testing that is ordered. It is a privilege to be allowed the opportunity to participate in? your urological care.? Again, if you have any questions or concerns If you have any questions or concerns please do not hesitate to contact me. The office is [phone]. This note is constructed using voice recognition software. While every effort has been made to ensure accuracy business owner/engineer errors may have been included. Yours sincerely, GALE Delatorre Coding Level of Care Code Est Pt Level 4 (05514) Complex EM visit Add On G2211 Diagnoses Recurrent UTI N39.0 Foul smelling urine R82.90 Renal cyst N28.1 CPT Codes Post Residual Void - PVR CPT Code: 98138-Ibnc Void Residual by ultrasound ([id number])
== END 2024-09-27 12:28 | disposition home or self-care (01) ==
PROVIDERS: PCP Internal Medicine; Visit Provider Nurse Practitioner Family
DX: N39.0 Urinary tract infection, site not specified (principal); R82.90 Unspecified abnormal findings in urine; N28.1 Cyst of kidney, acquired; Z13.9 Encounter for screening, unspecified
CPT/HCPCS: 99214; G2211

== ENCOUNTER 2024-09-27 11:35 | Outpatient (REF) | payer MEDICARE, MEDICAID, SELFPAY | END 2024-09-27 11:36 | disposition home or self-care (01) | LOC: HO.LNP 11:35 | PROVIDERS: PCP Internal Medicine; Visit Provider Nurse Practitioner Family | DX: N39.0 Urinary tract infection, site not specified (principal); R31.29 Other microscopic hematuria; R82.90 Unspecified abnormal findings in urine; N28.1 Cyst of kidney, acquired; B96.20 Unspecified Escherichia coli [E. coli] as the cause of diseases classified elsewhere; Z79.82 Long term (current) use of aspirin | CPT/HCPCS: 51798; 81003; 87086; 87088; 87186; 99212 ==

== ENCOUNTER 2024-11-01 12:40 | Outpatient (AMB) | payer MEDICARE, MEDICAID, SELFPAY ==
--- NOTE | 2024-11-01 12:55 | MHC.OFFVIS ---
Intake Visit Reasons: 1m/PVR Intake Note: Patient presents today for follow up on: recurrent uti and microscopic hematuria Urology Medications: none Blood Thinner: aspirin PVR: 0ml's [employer] Required: Yes [employer] Services: [employer] Present Accompanied by: Self / Same As Patient Allergies bee pollen [BEE STINGS] Allergy (Unknown, Verified 11/03/24 22:57) ANAPHYLAXIS morphine [MORPHINE] Allergy (Unknown, Verified 11/03/24 22:57) ITCHING Medication List - Last Reconciled 11/01/24 by AJ Delatorre- albuterol sulfate 2.5 mg (3 mL) inhalation Q4H PRN 30 days albuterol sulfate 90 mcg/actuation (Ventolin HFA) 2 puffs PO QID PRN alirocumab (Praluent Pen) 75 mg subcut Q2W amitriptyline 200 mg PO BEDTIME amlodipine 10 mg PO DAILY 90 days aspirin 81 mg PO DAILY atorvastatin 80 mg PO DAILY blood sugar diagnostic (FreeStyle Lite Strips) Test four times a day or as directed. blood-glucose meter (FreeStyle Lite Meter kit) As Directed [id number] 50-325-40 mg 1 tab PO TID PRN cetirizine 10 mg PO BEDTIME cholecalciferol (vitamin D3) 50 mcg PO DAILY clonazepam 1 mg PO BID PRN cyanocobalamin (vitamin B-12) 1,000 mcg PO DAILY cyclobenzaprine 5 mg PO TID PRN 7 days dulaglutide (Trulicity) mg subcut dulaglutide (Trulicity) mg subcut epinephrine 3 mg IM DIRECTED estradiol 0.01%(0.1mg/gram) (Estrace) 1 g vaginal 3XW 90 days ezetimibe (Zetia) 10 mg PO DAILY 90 days fluticasone propionate 50 mcg/actuation 2 sprays intranasal DAILY insulin glargine (Lantus Solostar U-100 Insulin) 40 units (0.4 mL) subcut DAILY insulin lispro (Humalog KwikPen (U-100) Insulin) 1 sliding scale dose subcut QIDACHS lancets (FreeStyle Lancets) Test four times a day or as directed. lancets (TRUEplus Lancets) As directed lidocaine 5% (Lidoderm) 1 patch topical DAILY 30 days lisinopril 2.5 mg PO DAILY metformin ER 1,000 mg PO QAM metoclopramide HCl 5 mg PO TID mirtazapine 45 mg PO BEDTIME nebulizers As directed nitrofurantoin macrocrystal 100 mg PO DAILY 10 days omeprazole 40 mg PO BID pen needle, diabetic Use four times a day or as directed. pregabalin 200 mg PO BID sennosides (senna) 17.2 mg (2 x 8.6 mg) PO BEDTIME 30 days simethicone 180 mg PO QID PRN sulfamethoxazole-trimethoprim 800-160 mg (Bactrim DS) 1 tab PO BID 14 days topiramate 100 mg PO BID trazodone 100 mg PO BEDTIME venlafaxine ER 37.5 mg PO DAILY HPI Comments Details: Naa is a pleasant 68 year old Eritrean speaking patient of Dr. Cabral was accompanied by her granddaughter at today's office visit. She has a PMH of obstructive sleep apnea on CPAP, chronic restrictive lung disease, chronic allergic rhinitis, asthma, hypertension, type 2 diabetes, and ACD. She presents to the office today for a follow-up of her recurrent urinary tract infections. Of note, patient was seen approximately 1 month ago at which time she had been reporting UTI like symptoms therefore urine was sent out for further assessment evaluation. These results were reviewed with the patient today. Urine culture: 04/01 E coli, 05/02 E coli, 07/02 E coli, 09/01 E coli, 10/02 E coli She reports having completed antibiotic therapy (Bactrim) as prescribed. She reports foul-smelling urine she had been experiencing has since subsided. Previous workup has included a bladder and renal ultrasound that noted bilateral kidneys with no hydronephrosis or renal calculi. Right kidney with benign simple cyst which requires no additional follow-up per radiology report. The bladder is well distended and normal. No bladder mass or diverticula is seen. Pre void bladder volume is approximately 515 mL. Postvoid bladder volume is approximately 90 mL. In office urinalysis results reviewed with the patient and her granddaughter today. PVR 0 mL. When asked she reports compliance with Estrace cream as prescribed. We discussed at length potential causes of recurrent urinary tract infections as well as further treatment options and risks and benefits of these treatment options. When asked she denies urinary urgency, urinary frequency, incontinence, nocturia, hematuria, dysuria, foul smelling urine, changes to urinary stream, flank pain, fever, and or chills. She is happy with her current voiding parameters. She otherwise offers no other issues or concerns at this time. [facility] Medical History Periumbilical abdominal pain EDWIN on CPAP Chronic restrictive lung disease Chronic allergic rhinitis Asthma Other and unspecified hyperlipidemia Essential hypertension Type 2 diabetes mellitus with unspecified complications Atherosclerotic cardiovascular disease Surgical History History of esophagogastroduodenoscopy (EGD) Hx of colonoscopy Family History Mother HTN (hypertension) Heart disease Asthma Maternal Aunt Breast cancer Maternal Aunt Tumor Maternal Aunt Cancer Social History Household Members: Spouse and Family Household Members Other:: 4 household members Housing: Apartment Do you presently have visiting nurse or other home services: No Alcohol intake: never Patient Tobacco Use Status: Never used Tobacco service: No Review of Systems Eyes Reports no additional complaints ENT Reports as per HPI Card Reports as per HPI Resp Reports as per HPI GI Reports as per HPI Reports as per HPI Musc Reports no additional complaints Neuro Reports no additional complaints Psych Reports no additional complaints Endo Reports as per HPI Leo/Lymph Reports no additional complaints Aller/Immun Reports no additional complaints Physical Exam Const General: cooperative, healthy appearing, comfortable, no acute distress, well developed, alert and awake Nutritional Appearance: obese Orientation/consciousness: patient oriented x3 Limitations: no limitations HEENT Head: Yes normal to inspection, Yes normocephalic and Yes atraumatic Ears: hearing grossly normal bilaterally Eyes General: appearance normal, both eyes and all related structures Neck Neck: Yes normal visual inspection and Yes trachea midline Chest Chest palpation & inspection: normal inspection of the chest Resp Effort & Inspection: normal respiratory effort and able to speak in complete sentences Cardio Rate: regular rate GI Inspection: Yes normal to inspection General: Yes no CVA tenderness Back/Spine/Pelvis Back: no CVA tenderness Skin General skin exam: no rashes or lesions noted Neuro General: patient oriented x3 Extrem General: Yes normal to inspection Psych Appearance: grossly normal and well kempt Mental Status: mental status grossly normal Speech and movement: Normal speech and movement present and Clear speech present Affect: normal affect Attitude: cooperative Thought process: Normal thought process present Thought content: Normal thought content present Insight: Fair insight present (Psych) Judgement: Fair judgement present (Psych) Office Procedures Post Void Residual Post Residual Void Post Void Residual (PVR): 0 [id number] Void Residual by ultrasound Results AMB Urinalysis, Automated UA Leukoctes 15 Bola/uL Last Edit by [employer] on 11/01/24 14:32 UA Nitrite Last Edit by [employer] on 11/01/24 14:32 UA Urobilinogen 0.2 mg/dL Last Edit by [employer] on 11/01/24 14:32 UA Protein 15 mg/dL Last Edit by [employer] on 11/01/24 14:32 UA pH 6.5 Last Edit by [employer] on 11/01/24 14:32 UA Blood 0 Phil/uL Last Edit by [employer] on 11/01/24 14:32 UA Specific [place] 1.015 Last Edit by [employer] on 11/01/24 14:32 UA Ketone Negative Last Edit by [employer] on 11/01/24 14:32 UA Bilirubin 0 mg/dL Last Edit by [employer] on 11/01/24 14:32 UA Glucose 0 mg/dL Last Edit by [employer] on 11/01/24 14:32 Results Reviewed Results Reviewed: Laboratory Last Values Urine pH (Auto) 6.5 11/01/24 14:29 Specific [place] (Auto) 1.015 11/01/24 14:29 Urine Protein (Auto) 15 mg/dL 11/01/24 14:29 Glucose (UA)(Auto) 0 mg/dL 11/01/24 14: Urine Ketones (Auto) Negative 11/01/24 14: Urine Blood (Auto) 0 Phil/uL 11/01/24 14:29 Urine Bilirubin (Auto) 0 mg/dL 11/01/24 14:29 Urine Urobilinogen (Auto) 0.2 mg/dL 11/01/24 14:29 Leukocyte Esterase (Auto) 15 Bola/uL 11/01/24 14:29 Assessment & Plan Assessment & Plan (1) Renal cyst: Code(s): N28.1 - Cyst of kidney, acquired Category: Medical (2) Recurrent UTI: Code(s): N39.0 - Urinary tract infection, site not specified Category: Medical Plan In office urinalysis results reviewed with the patient and her granddaughter today; as noted above. Patient currently denies any bothersome urinary issues or concerns. Continue Estrace cream as discussed and prescribed. She denies any UTI like symptoms. Discussed UTI prevention with D mannose supplement, vitamin-C, increasing fluid intake, behavioral therapy with timed voiding, perineal hygiene and postcoital voiding, and management of constipation with stool softeners and increased fiber intake. We discussed potential causes of recurrent urinary tract infections as well as further treatment options and risks and benefits of these treatment options. Follow-up in 3 months with PVR; or sooner with any issues, concerns, and or questions. Orders: Orders AMB Post Void Residual by ultrasound 11/01/24 N39.0 - Urinary tract infection, site not specified AMB Urinalysis Automated 11/01/24 Z13.9 - Encounter for screening, unspecified Medications: Discontinued nitrofurantoin macrocrystal Discontinued Reason: Patient Completed Course 100 mg PO DAILY 10 days 10 caps 0RF sulfamethoxazole-trimethoprim 800-160 mg (Bactrim DS) Discontinued Reason: Patient Completed Course 1 tab PO BID 14 days 28 tabs 0RF N39.0 - Urinary tract infection, site not specified Patient Instructions: The patient had an opportunity to ask questions regarding the treatment plan. All questions were answered. Physical exam, labs, and imaging were discussed and reviewed in detail. As well as risks, benefits, and discussion of treatment choices. No major barriers to understanding were identified. The patient expressed understanding and agreement with the above treatment plan. The patient was made aware they should contact our office by phone for worsening of their current condition, the appearance of new symptoms, or with any questions or concerns. Compliance is encouraged with any medications and follow up testing that is ordered. It is a privilege to be allowed the opportunity to participate in? your urological care.? Again, if you have any questions or concerns If you have any questions or concerns please do not hesitate to contact me. The office is [phone]. This note is constructed using voice recognition software. While every effort has been made to ensure accuracy logistics analytics manager errors may have been included. Yours sincerely, AJ Delatorre-BC Coding Level of Care Code Est Pt Level 3 (03389) Complex EM visit Add On G2211 Diagnoses Renal cyst N28.1 Recurrent UTI N39.0 CPT Codes Post Residual Void - PVR CPT Code: 17846-Ywud Void Residual by ultrasound ([id number])
== END 2024-11-01 13:23 | disposition home or self-care (01) ==
PROVIDERS: PCP Internal Medicine; Visit Provider Nurse Practitioner Family
DX: N28.1 Cyst of kidney, acquired (principal); N39.0 Urinary tract infection, site not specified
CPT/HCPCS: 99213; G2211

== ENCOUNTER → 2024-11-01 12:40 | Outpatient (BNVA) | payer MEDICARE, MEDICAID, SELFPAY | PROVIDERS: PCP Internal Medicine; Visit Provider Nurse Practitioner Family | DX: N28.1 Cyst of kidney, acquired (principal); N39.0 Urinary tract infection, site not specified | CPT/HCPCS: 51798; 81003; 99212 ==

== ENCOUNTER 2024-11-11 14:39 | Outpatient (REF) | payer MEDICARE, MEDICAID, SELFPAY ==
--- NOTE | ~2024-11-11 | CT_ITS ---
CLINICAL HISTORY: pulmonary nodule CT chest without contrast Comparison: None Findings: Heavy coronary artery calcifications. The visualized thyroid and mediastinum are unremarkable. 5 mm ground-glass opacity nodule in the right upper lobe. 4 noncalcified nodules within the right middle and lower lobes measuring up to 5 mm. A few scattered 1-2 mm left lung nodules. Small calcified right middle lobe granuloma. Small right lower lobe lung cyst. Mild splenomegaly measuring 13.7 cm dimension. Partial left hepatic lobe surface lobulation. Query cirrhosis. No acute fractures. IMPRESSION: Bilateral lung calcified scattered lung nodules measuring up to 5 mm are nonspecific. Follow-up per Fleischner society criteria recommended. Partial left hepatic lobe surface lobulation. Query cirrhosis. Mild splenomegaly. Fleischner 2017 Guidelines were utilized to develop follow up recommendations for this patient. The full article can be viewed at: https://goo.gl/emmULK Follow up strategies in solid nodules vary depending on patient risk assessment, with patient's classified as high or low risk. Low risk is associated with young age, smaller nodule size, regular margins, and location in an area other than the upper lobe. High risk factors include older age, heavy smoking, emphysema, carcinogen exposure, larger nodule size, irregular or spiculated margins, and upper lobe location. Nodule size and morphology are the dominant factors. Follow up of subsolid nodules (including ground glass and part solid opacities) is different when compared to solid nodules based on risk of malignancy and a longer doubling time in this group. Therefore when follow up is recommended, it is for a longer interval. Also in this group, recommendations may vary depending on a solitary lesion versus multiplicity of lesions. A calculator of estimated risk is available at: https://goo.gl/WAYNEJEh ##PFU## This document has been electronically signed by: Maggie Marina MD on 11/14/2024 10:23:45
--- OUTSIDE RECORDS SUMMARY | 2024-11-11 16:02 | XMS_ITS | Data Portability ---
Author Organization [place] - [facility], Allergy Address [address] [address] Assessment Encounter Date Assessment Date Assessment LastModified by Organization Details LastModified Time 07/06/2024 07/06/2024 Administered By: Iman Santos RN Use of Antihistamines: No If yes: Vial Test Change in medications: No If yes ?? Increase in asthma symptoms No If yes, inhaler use: Reaction to last injections: No If yes: ?? Allergy Symptoms: Other: ?? Missed 1 week Dose Notes:??aware of vial test [email or web address] Not available 07/06/2024 14:13:56 07/21/2024 07/21/2024 Administered By: ELIZABETH Edmondson Use of Antihistamines: No If yes: Vial Test Yes Change in medications: No If yes ?? Increase in asthma symptoms If yes, inhaler use: Reaction to last injections: No If yes: ?? Allergy Symptoms: Other: ?? Missed 1 week Yes Dose Repeated Notes:?? [email or web address] Not available 07/21/2024 10:08:03 07/29/2024 07/29/2024 Administered By: Lesa Brink Use of Antihistamines: No If yes: Vial Test Change in medications: No If yes ?? Increase in asthma symptoms If yes, inhaler use: Reaction to last injections: No If yes: ?? Allergy Symptoms: Other: ?? Missed 1 week Dose Notes:?? [email or web address] Not available 07/29/2024 13:27:27 09/07/2024 09/07/2024 Administered By: Iman Santos RN Use of Antihistamines: No If yes: Vial Test Change in medications: No If yes ?? Increase in asthma symptoms If yes, inhaler use: Reaction to last injections: No If yes: ?? Allergy Symptoms: Other: ?? Missed 1 week Dose Notes:??missed 1 month dose decreased [email or web address] Not available 09/07/2024 15:26:46 09/21/2024 09/21/2024 Administered By: ELIZABETH Edmondson Use of Antihistamines: No If yes: Vial Test Change in medications: No If yes ?? Increase in asthma symptoms If yes, inhaler use: Reaction to last injections: No If yes: ?? Allergy Symptoms: Other: ?? Missed 1 week Dose Notes:?? [email or web address] Not available 09/21/2024 10:54:52 Plan of Treatment Reminders Order Date Submit Date Provider Last Modified By Organization Details Last Modified Time Details Appointments None record ed. Lab None record ed. Referral None record ed. Procedures None record ed. Surgeries None record ed. Imaging None record ed. Medication Orders None record ed. Patient TargetsNo targets recorded. Patient InstructionsNo instructions recorded. Reason for Referral None Reported. Problems Name Problem SNOMED Code Status Onset Date Resolution Date Notes Provider Name and Address Organization Details Recorded Time Itching of skin 690357366 Active 2018 Pruritus, unspecifi ed; Note: Date Diagnosed : 02/08/2019 3:52 PM (L29.9) Not Available [facility] 4 02:22:18 Asthenia 19312861 Active 2018 Asthenia NOS; Note: Date Diagnosed : 10/10/2019 9:51 AM (R53.1) Not Available [facility] 4 02:21:50 Gastro-eso phageal reflux disease with esophagiti s 894783306 Active 2018 Gastro-es ophageal reflux disease with esophagit is; Note: Date Diagnosed : 04/07/2019 1:10 PM (K21.0) Not Available [facility] 4 02:21:39 Allergic rhinitis 82632787 Active 2019 [facility] 03/2024 ANDREW ALEJANDRO MD [address] [place] [address], [facility] AL[place] desouza, [address] , [facility] - [facility] 4 13:42:19 Nasal congestion 91999020 Active 2018 Nasal congestio n; Note: Date Diagnosed : 02/08/2019 3:56 PM (R09.81) Not Available [facility] 02:21:46 Perennial allergic rhinitis 174187914 Active 2023 MECHE ALEJAC, RMA [address], [place], [address] , [facility] - [facility] [place] 13:30:45 Problem Notes None recorded. Procedures Surgical History Date Name Laterality Status Provider Name and Address Organization Details Recorded Time 09/21/20 24 Allergy Immunotherapy Injections completed MECHE ROSAANASTACIAC, RMA [address], [place], [address], [facility] - [facility] [place] 09/21/2024 10:54:46 09/07/20 24 Allergy Immunotherapy Injections completed MECHE MASTERSONC, RMA [address], [place], [address], [facility] - [facility] [place] 09/07/2024 15:26:03 07/29/20 24 Allergy Immunotherapy Injections completed LESA BRINK, RMA [address], [place], [address], [facility] - [facility] [place] 07/29/2024 13:27:22 07/21/20 24 Allergy Immunotherapy Injections completed MECHE FERRIS, RMA [address] [place] [address], [address], [facility] - [facility] [place] 07/21/2024 10:07:54 07/06/20 24 Allergy Immunotherapy Injections completed IMAN SANTOS RN [address], [place], [address], [facility] - [facility] [place] 07/06/2024 14:13:42 06/23/20 24 Allergy Immunotherapy Injections completed MECHE FERRIS, RMA [address], [place], [address], [place] - [facility] [place] 06/23/2024 13:25:45 06/15/20 24 Allergy Immunotherapy Injections completed MECHE FERRIS, RMA [address], [place], [address], [facility] - [facility] 06/15/2024 14:07:46 05/05/20 24 Allergy Immunotherapy Injections completed MECHE FERRIS [facility] [address] [facility],[address], [address], [facility] - [facility] 05/05/2024 13:06:00 04/28/20 24 Allergy Immunotherapy Injections completed LESA DENISSE [facility] [address] [facility],[address], [address], [facility] - [facility] 04/28/2024 14:05:19 04/20/20 24 Allergy Immunotherapy Injections completed LESATulio BRINK [address], [address], [facility] 04/20/2024 14:27:52 04/08/20 24 Allergy Immunotherapy Injections completed LESATulio BRINK [address], [address], [facility] 04/08/2024 13:04:02 03/30/20 24 Allergy Immunotherapy Injections completed MECHE MASTERSONShelia [address], [address], [facility] 03/30/2024 13:31:25 Imaging Results None recorded. Procedure Notes None recorded. Medical Equipment None Reported. Allergies Allergen ID Allergen Name Allergen Category Reaction Reaction Severity Criticality Documentation Date Start Date Code Code System Note Provider Name and Address Organization Details Recorded Time 67117 morphine medicatio n other Not available Not available 03/22/2024 7052 RxNorm React ion: unkno wn, unspe cifie d;; Not Available [facility] 00:54:57 Medications Name Sig Start Date Stop Date Status Note LastModified by Organization Details LastModified Time medbox status USE DIRECTED active Not Available Not Available No t Available metformin 500 mg tablet 03/10 completed Medicati on ID: [id number] D uration Value: 30 Brand Name: metformi n Send Method: E-Prescr ibed Sub s Allowed: subs OK Medic ationGen ericName : metformi n Not Available Not Available Not Available atorvasta tin 80 mg tablet TAKE 1 TABLET BY MOUTH EVERY DAY AT BEDTIME active Not Available Not Available No t Available venlafaxi ne ER 37.5 mg capsule,e xtended release 24 hr TOME EVELIO C PSULA TODOS LOS D EN LA MA WALESKA active Not Available Not Available No t Available albuterol sulfate 2.5 mg/3 mL (0.083 %) solution for nebulizat ion 03/10 completed Medicati on ID: [id number] D uration Value: 15 Brand Name: albutero l sulfate Send Method: E-Prescr ibed Sub s Allowed: subs OK Speci al Instruct ion: INHALE 1 VIAL BY NEBULIZA TION EVERY 4 HOURS NEEDED FOR WHEEZING FOR UP TO 30 DAYS. Me dication GenericN meng: albutero l sulfate Not Available Not Available Not Available trazodone 50 mg tablet 03/10 completed Medicati on ID: [id number] D uration Value: 30 Brand Name: trazodon e Send Method: E-Prescr ibed Sub s Allowed: subs OK Speci al Instruct ion: TOME EVELIO TABLETA TODOS LOS D? AL ACOSTARS E Medica tionGene ricName: trazodon e Not Available Not Available Not Available cetirizin e 10 mg tablet TAKE 1 TABLET BY MOUTH EVERY DAY AT BEDTIME active Not Available Not Available No t Available atorvasta tin 10 mg tablet 03/10 completed Medicati on ID: [id number] D uration Value: 30 Brand Name: atorvast atin Sen d Method: E-Prescr ibed Sub s Allowed: subs OK Speci al Instruct ion: TOME EVELIO TABLETA TODOS LOS D? Med icationG enericNa me: atorvast atin Not Available Not Available Not Available simethico ne 180 mg capsule TOME 1 C PSULA POR V A ORAL CUATRO VECES AL D A AFTER MEALS CUANDO SEA NECESARI O FOR ABDOMINA L PAIN. active Not Available Not Available No t Available metoprolo l succinate ER 50 mg tablet,ex tended release 24 hr TAKE 1 TABLET BY MOUTH EVERY MORNING DO NOT BREAK, CRUSH, DISSOLVE OR CHEW active Not Available Not Available No t Available senna 8.6 mg tablet TOME DOS TABLETAS POR V A ORAL TODOS LOS D AL ACOSTARS E active Not Available Not Available No t Available sucralfat e 1 gram tablet TAKE 2 TABLETS BY MOUTH EVERY DAY active Not Available Not Available No t Available phenazopy ridine 200 mg tablet TAKE 1 TABLET BY MOUTH THREE TIMES DAILY IN THE MORNING, AT NOON, AND AT BEDTIME NEEDED FOR SPASMS (FOR BLADDER) FOR UP TO 3 DAYS active Not Available Not Available No t Available clonazepa m 0.5 mg tablet 03/10 completed Medicati on ID: [id number] D uration Value: 30 Brand Name: clonazep am Send Method: E-Prescr ibed Sub s Allowed: subs OK Speci al Instruct ion: TAKE 1 TABLET BY MOUTH ONCE A DAY NEEDED ANXIETY Medicati onGeneri cName: clonazep am Not Available Not Available Not Available clonazepa m 1 mg tablet TOME 1 TABLETA POR V A ORAL TODOS LOS D CUANDO SEA NECESARI O active Not Available Not Available No t Available cyanocoba shanika (vit B-12) 1,000 mcg tablet TAKE 1 TABLET BY MOUTH EVERY MORNING active Not Available Not Available No t Available sulfameth oxazole 800 mg-trimet hoprim 160 mg tablet TOME 1 TABLETA POR V A ORAL DOS VECES AL D A active Not Available Not Available No t Available omeprazol e 40 mg capsule,d elayed release TAKE 1 CAPSULE BY MOUTH TWICE DAILY active Not Available Not Available No t Available aspirin 81 mg tablet,de layed release TAKE 1 TABLET BY MOUTH DAILY AT BEDTIME active Not Available Not Available No t Available butalbita l-acetami nophen-ca ffeine 50 mg-325 mg-40 mg tablet 03/18 completed Medicati on ID: [id number] D uration Value: 10 Reason: () Brand Name: butalbit al-aceta minophen -caff Se nd Method: E-Prescr ibed Sub s Allowed: subs OK Speci al Instruct ion: TOME EVELIO TABLETA CADA OCHO HORAS CUANDO SEA NECESARI O Medica tionGene ricName: butalbit al-aceta minophen -caff Not Available Not Available Not Available ketorolac 0.5 % eye drops PLEASE SEE ATTACHED FOR DETAILED DIRECTIO NS active Not Available Not Available No t Available meloxicam 7.5 mg tablet TAKE 1 TABLET BY MOUTH AT BEDTIME active Not Available Not Available No t Available metoclopr amide 5 mg tablet TAKE 1 TABLET BY MOUTH THREE TIMES DAILY active Not Available Not Available No t Available trazodone 100 mg tablet TOME 1 TABLETA POR V A ORAL TODOS LOS D AL ACOSTARS E active Not Available Not Available No t Available meclizine 25 mg tablet TAKE 1 TABLET BY MOUTH THREE TIMES DAILY NEEDED FOR DIZZINES S active Not Available Not Available No t Available phenazopy ridine 100 mg tablet TAKE 1 TABLET BY MOUTH THREE TIMES DAILY IN THE MORNING, AT NOON, AND AT BEDTIME NEEDED SPASMS FOR BLADDER active Not Available Not Available No t Available amlodipin e 10 mg tablet TAKE 1 TABLET BY MOUTH EVERY DAY IN THE MORNING active Not Available Not Available No t Available nitrofura ntoin macrocrys blas 100 mg capsule TAKE 1 CAPSULE ORALLY DAILY FOR 10 DAYS *NC* active Not Available Not Available No t Available lisinopri l 10 mg tablet TAKE 1 TABLET BY MOUTH EVERY DAY active Not Available Not Available No t Available lidocaine 5 % topical patch 03/10 completed Medicati on ID: [id number] D uration Value: 28 Brand Name: lidocain e Send Method: E-Prescr ibed Sub s Allowed: subs OK Medic ationGen ericName : lidocain e Not Available Not Available Not Available verapamil ER (PM) 300 mg capsule 24hr pellet CT,ext.re lease 03/10 completed Medicati on ID: [id number] D uration Value: 30 Brand Name: verapami l Send Method: E-Prescr ibed Sub s Allowed: subs OK Speci al Instruct ion: TOME EVELIO CAPSULA POR V?A ORAL TODOS LOS D? Med icationG enericNa me: verapami l Not Available Not Available Not Available Advair Diskus 250 mcg-50 mcg/dose powder for inhalatio n active Medicati on ID: [id number] B rand Name: Advair Diskus S end Method: E-Prescr ibed Sub s Allowed: subs OK Medic ationGen ericName : Advair Diskus Not Available Not Available Not Available nitroglyc deonna 0.4 mg sublingua l tablet 03/10 completed Medicati on ID: [id number] B rand Name: nitrogly cerin Se nd Method: E-Prescr ibed Sub s Allowed: subs OK Medic ationGen ericName : nitrogly cerin Not Available Not Available Not Available mirtazapi ne 45 mg tablet TOME EVELIO TABLETA TODOS LOS D AL ACOSTARS E active Not Available Not Available No t Available ammonium lactate 12 % topical cream 03/10 completed Medicati on ID: [id number] D uration Value: 30 Brand Name: ammonium lactate Send Method: E-Prescr ibed Sub s Allowed: subs OK Speci al Instruct ion: APPLY TO DRY SKIN DAILY Me dication GenericN meng: ammonium lactate Not Available Not Available Not Available metoprolo l succinate ER 25 mg tablet,ex tended release 24 hr TAKE 1 TABLET BY MOUTH DAILY AT BEDTIME active Not Available Not Available No t Available azelastin e 137 mcg (0.1 %) nasal spray 2 spray into both nostrils 03/10 completed Medicati on ID: [id number] Vashti avalos d By Name: BEST Blackmon nd Name: azelasti ne Send Method: E-Prescr ibed Sub s Allowed: subs OK Medic ationGen ericName : azelasti ne Not Available Not Available Not Available epinephri ne 0.3 mg/0.3 mL injection , auto-inje ctor INJECT FULL CONTENTS OF 1 PEN INTRAMUS CULARLY NEEDED FOR ALLERGIC REACTION , CALL 911 active Not Available Not Available No t Available estradiol 0.01% (0.1 mg/gram) vaginal cream APPLY PEA-SIZE D AMOUNT TO URETHRA DAILY FOR 1 MONTH. AFTER 1 MONTH APPLY 3 TIMES A WEEK active Not Available Not Available No t Available topiramat e 100 mg tablet TAKE 1 TABLET BY MOUTH EVERY DAY IN THE MORNING AND TAKE 2 TABLETS BY MOUTH EVERY DAY AT BEDTIME active Not Available Not Available No t Available fluticaso ne propionat e 50 mcg/actua tion nasal spray,bridgett pension USE 2 SPRAYS IN EACH NOSTRIL ONCE DAILY active Not Available Not Available No t Available metformin ER 500 mg tablet,ex tended release 24 hr TAKE 2 TABLETS BY MOUTH TWICE DAILY IN THE MORNING AND IN THE EVENING active Not Available Not Available No t Available amitripty line 100 mg tablet TAKE 2 TABLETS BY MOUTH EVERY DAY AT BEDTIME active Not Available Not Available No t Available lisinopri l 2.5 mg tablet TAKE 1 TABLET BY MOUTH EVERY DAY IN THE MORNING active Not Available Not Available No t Available naproxen 500 mg tablet TAKE 1 TABLET BY MOUTH WITH FOOD OR MILK EVERY 12 HOURS NEEDED active Not Available Not Available No t Available Ventolin HFA 90 mcg/actua tion aerosol inhaler INHALE 2 PUFFS FOUR TIMES DAILY NEEDED FOR WHEEZING OR SHORTNES S OF BREATH active Not Available Not Available No t Available oxycodone 5 mg tablet 03/10 completed Medicati on ID: [id number] D uration Value: 7 Brand Name: oxycodon e Send Method: E-Prescr ibed Sub s Allowed: subs OK Medic ationGen ericName : oxycodon e Not Available Not Available Not Available Vitamin B-12 ER 1,000 mcg tablet,ex tended release 03/10 completed Medicati on ID: [id number] D uration Value: 30 Brand Name: Vitamin B-12 Sen d Method: E-Prescr ibed Sub s Allowed: subs OK Medic ationGen ericName : Vitamin B-12 Not Available Not Available Not Available ezetimibe 10 mg tablet TAKE 1 TABLET BY MOUTH EVERY MORNING active Not Available Not Available No t Available bupropion HCl XL 300 mg 24 hr tablet, extended release 05/31 completed Medicati on ID: [id number] D uration Value: 30 Reason: () Brand Name: bupropio n HCl Send Method: E-Prescr ibed Sub s Allowed: subs OK Speci al Instruct ion: TOME EVELIO TABLETA TODOS LOS D? EN LA MA?WALESKA SEG?N LO INDICADO Medicat ionGener icName: bupropio n HCl Not Available Not Available Not Available Alcohol Prep Pads active Not Available Not Available No t Available nitrofura ntoin monohydra te/macroc rystals 100 mg capsule TAKE 1 CAPSULE BY MOUTH TWICE DAILY FOR 7 DAYS active Not Available Not Available No t Available pregabali n 150 mg capsule TOME EVELIO C PSULA DOS VECES AL D A FOR 30 DAYS active Not Available Not Available No t Available pregabali n 200 mg capsule TAKE 1 CAPSULE BY MOUTH TWICE DAILY IN THE MORNING AND IN THE EVENING active Not Available Not Available No t Available Lyrica 50 mg capsule 03/10 completed Medicati on ID: [id number] D uration Value: 30 Brand Name: Lyrica S end Method: E-Prescr ibed Sub s Allowed: subs OK Medic ationGen ericName : Lyrica Not Available Not Available Not Available morphine active Not Available Not Avai lable Not Available DermOtic Oil 0.01 % ear drops 2 drop 03/10 completed Medicati on ID: [id number] P rescribe d By Name: Andrew Alejandro M.D. Bra nd Name: DermOtic Oil Send Method: E-Prescr ibed Sub s Allowed: subs OK Medic ationGen ericName : DermOtic Oil Not Available Not Available Not Available ProAir HFA 03/10 completed Medicati on ID: [id number] D uration Value: 17 Brand Name: ProAir HFA Send Method: E-Prescr ibed Sub s Allowed: subs OK Speci al Instruct ion: INHALE 2 PUFFS INTO THE LUNGS 4 TIMES DAILY NEEDED FOR WHEEZING OR SHORTNES S OF BREATH. Medicati onGeneri cName: ProAir HFA Not Available Not Available Not Available FreeStyle Breezewood Lite kit USE DIRECTED TO CHECK BLOOD SUGAR FOUR TIMES DAILY active Not Available Not Available No t Available Novofine 32 32 gauge x 1/4 needle USE DIRECTED FOUR TIMES DAILY active Not Available Not Available No t Available blood pressure test kit-large cuff USE DIRECTED EVERY DAY active Not Available Not Available No t Available BD Ultra-Fin e Atri Pen Needle 32 gauge x 5/32 USE DIRECTED WITH INSULIN FOUR TIMES DAILY active Not Available Not Available No t Available sodium,po tassium,m ag sulfates 17.5 gram-3.13 gram-1.6 gram oral soln active Medicati on ID: [id number] B rand Name: sodium,p otassium ,mag sulfates Send Method: E-Prescr ibed Sub s Allowed: subs OK Medic ationGen ericName : sodium,p otassium ,mag sulfates Not Available Not Available Not Available Vitamin D3 50 mcg (2,000 unit) capsule 03/10 completed Medicati on ID: [id number] D uration Value: 30 Brand Name: Vitamin D3 Send Method: E-Prescr ibed Sub s Allowed: subs OK Speci al Instruct ion: TOME EVELIO CAPSULA POR V?A ORAL TODOS LOS D? Med icationG enericNa me: Vitamin D3 Not Available Not Available Not Available TRUEplus Lancets 33 gauge TEST BLOOD SUGAR FOUR TIMES DAILY active Not Available Not Available No t Available Trulicity 1.5 mg/0.5 mL subcutane ous pen injector INJECT ONE PEN (=1.5MG) SUBCUTAN EOUSLY ONCE A WEEK DIRECTED active Not Available Not Available No t Available Trulicity 0.75 mg/0.5 mL subcutane ous pen injector INJECT ONE PEN (=0.75MG ) SUBCUTAN EOUSLY ONCE A WEEK DIRECTED active Not Available Not Available No t Available Breo Ellipta 200 mcg-25 mcg/dose powder for inhalatio n active Medicati on ID: [id number] B rand Name: Breo Ellipta Send Method: E-Prescr ibed Sub s Allowed: subs OK Medic ationGen ericName : Breo Ellipta Not Available Not Available Not Available Praluent Pen 75 mg/mL subcutane ous pen injector PLEASE SEE ATTACHED FOR DETAILED DIRECTIO NS active Not Available Not Available No t Available Basaglar KwikPen U-100 Insulin 100 unit/mL (3 mL) subcutane ous INJECT 40 UNITS SUBCUTAN EOUSLY EVERY DAY active Not Available Not Available No t Available Trulicity 3 mg/0.5 mL subcutane ous pen injector active Medicati on ID: [id number] B rand Name: Trulicit y Send Method: E-Prescr ibed Sub s Allowed: subs OK Medic ationGen ericName : Trulicit y Not Available Not Available Not Available Vitals None Recorded Social History None recorded. Functional Status None recorded. Mental Status None recorded. Family History Nothing Reported. Medical History No medical history recorded. Gynecological HistoryNo gynecological history recorded. Obstetrics History GPAL:G 0 P 0 0 0 0 Past Encounters Encounter ID Performer Location Encounter Start Date Encounter Closed Date Diagnosis/Indication Diagnosis SNOMED-CT Code Diagnosis ICD10 Code [id number] ANDREW ALEJANDRO MD Allergy [address] [place] [address],[facility] [address] [place] [address] [place] JAMES [address] 03/30/2024 13:29:57 03/30/2024 15:45:29 Perennial allergic rhinitis [id number] J30.89 [id number] LESA BRINK, A Allergy [address] [place] [address],[address] [place] [address] 04/08/2024 12:39:27 04/08/2024 15:21:01 Perennial allergic rhinitis [id number] J30.89 [id number] LESA BRINK [facility] Allergy [address] [place] [address],[address] [place] [address] 04/20/2024 13:25:00 04/20/2024 15:25:45 Perennial allergic rhinitis [id number] J30.89 [id number] LESA BRINK [facility] Allergy [address] [place] [address],[address] [place] [address] 04/28/2024 14:04:28 04/28/2024 15:40:21 Perennial allergic rhinitis [id number] J30.89 [id number] [facility] Allergy [address] [place] [address] [address] [place] [address] 05/05/2024 12:11:55 05/05/2024 13:31:24 Perennial allergic rhinitis [id number] J30.89 [id number] [facility] Allergy [address] [place] [address], [address] [place] [address] 06/15/2024 13:51:37 06/15/2024 15:10:46 Perennial allergic rhinitis [id number] J30.89 [id number] MECHE [facility] Allergy [address] [place] [address], [address] [place] [address] 06/23/2024 13:05:12 06/23/2024 15:14:31 Perennial allergic rhinitis [id number] J30.89 [id number] 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,[address] [place] [address] 07/29/2024 13:19:08 07/29/2024 13:36:43 Perennial allergic rhinitis [id number] J30.89 [id number] MECHE MASTERSON, A Allergy 100 [facility],[address] [facility] [place] [address] 09/07/2024 12:39:33 09/07/2024 15:27:20 Perennial allergic rhinitis [id number] J30.89 [id number] MECHE MASTERSON, A Allergy 100 [facility],[address] [place] [address] 09/21/2024 10:30:22 09/21/2024 10:55:14 Perennial allergic rhinitis [id number] J30.89 Health Concerns Section Related Observation LastModified by Organization Detai ls LastModified Time None Recorded Concern Status LastModified by Organization Details LastModified Time None Recorded Advance Directives Directive None Recorded Payers Encounter Date Sequence Insurance Name Policy Number Policy Franks Covered Member ID Franks Member ID Guarantor Name 07/06/2024 1 [place] [employer] Naa Pedersen [id number] Naa Pedersen 07/06/2024 2 [place] Naa Pedersen [id number] Naa Pedersen 07/21/2024 1 [place] Naa Pedersen [id number] Naa Pedersen 07/21/2024 2 [place] N[place] Pedersen [id number] Naa Pedersen 07/29/2024 1 [place] [employer] Naa Pedersen [id number] Naa Pedersen 07/29/2024 2 [place] Naa Pedersen [id number] Naa Pedersen 09/07/2024 1 [place] B[place] [employer] Naa Pedersen [id number] Naa Pedersen 09/07/2024 2 [place] Naa Pedersen [id number] Naa Pedersen 09/21/2024 1 [place] [employer] Naa Pedersen [id number] Naa Pedersen 09/21/2024 2 [place] [facility] Naa Pedersen [id number] Naa Pedersen OBGyn Episode No OBEpisode recorded.
--- OUTSIDE RECORDS SUMMARY | 2024-11-11 16:03 | XMS_ITS | Continuity of Care Document ---
Author Organization [place] [facility], Allergy Address [address] [address] Assessment Encounter Date Assessment Date Assessment LastModified by Organization Details LastModified Time 09/21/2024 09/21/2024 Administered By: ELIZABETH Edmondson Use of Antihistamines: No If yes: Vial Test Change in medications: No If yes ?? Increase in asthma symptoms If yes, inhaler use: Reaction to last injections: No If yes: ?? Allergy Symptoms: Other: ?? Missed 1 week Dose Notes:?? norman Not available 09/21/2024 10:54:52 Plan of Treatment [...] Organization Details Recorded Time Itching of skin 788957881 Active 2018 Pruritus, unspecifi ed; Note: Date Diagnosed : 02/08/2019 3:52 PM (L29.9) Not Available [facility] 4 02:22:18 Asthenia 44729038 Active 2018 Asthenia NOS; Note: Date Diagnosed : 10/10/2019 9:51 AM (R53.1) Not Available [facility] 4 02:21:50 Gastro-eso phageal reflux disease with esophagiti s 107588427 Active 2018 Gastro-es ophageal reflux disease with esophagit is; Note: Date Diagnosed : 04/07/2019 1:10 PM (K21.0) Not Available [facility] 4 02:21:39 Allergic rhinitis 98533106 Active 2019 SCIT 03/2024 KAROLINA ALEJANDRO MD [address], [place], [address] , [facility] - [facility] [place] 4 13:42:19 Nasal congestion 66764845 Active 2018 Nasal congestio n; Note: Date Diagnosed : 02/08/2019 3:56 PM (R09.81) Not Available [facility] 4 02:21:46 Perennial allergic rhinitis 761620117 Active 2023 MECHE FERRIS [facility] [address] [facility], [facility] [place], [address] , [facility] - [facility] [place] 4 13:30:45 Problem Notes None recorded. Procedures Surgical History Date Name Laterality Status Provider Name and Address Organization Details Recorded Time 09/21/20 24 Allergy Immunotherapy Injections completed MECHE FERRIS [facility] [address],[place] [address] [place] [address], [address], [facility] - [facility] [place] 09/21/2024 10:54:46 09/07/20 24 Allergy Immunotherapy Injections completed MECHE FERRIS [facility] [address],[place] [address] [place] [address], [address], [facility] - [facility] [place] 09/07/2024 15:26:03 07/29/20 24 Allergy Immunotherapy Injections completed MICHAELLE SALCEDO [facility] [address],[place] [address] [place] [address], [address], [facility] - [facility] [place] 07/29/2024 13:27:22 07/21/20 24 Allergy Immunotherapy Injections completed MECHE FERRIS RMA [address],[place] [address] [place] [address], [address], [facility] - [facility] [place] 07/21/2024 10:07:54 07/06/20 24 Allergy Immunotherapy Injections completed IMAN SANTOS RN [address],[place] [address] [place] [address], [phone], [facility] - [facility] [place] 07/06/2024 14:13:42 06/23/20 24 Allergy Immunotherapy Injections completed MECHE LEEDALLIN, RMA [address], [place], [address], [facility] - [facility] 06/23/2024 13:25:45 06/15/20 24 Allergy Immunotherapy Injections completed MECHE MASTERSONC, RMA [address],[place], [address], [facility] - [facility] 06/15/2024 14:07:46 05/05/20 24 Allergy Immunotherapy Injections completed MECHE LEEANASTACIAC, RMA [address],[place] [address], [address], [facility] - [facility] 05/05/2024 13:06:00 04/28/20 24 Allergy Immunotherapy Injections completed MICHAELLE SALCEDO RMA [address] [facility], [place], [address], [facility] - [facility] 04/28/2024 14:05:19 04/20/20 24 Allergy Immunotherapy Injections completed MICHAELLE SALCEDO RMA [address],[place] [address] [place] [address], [address], [facility] - [facility] 04/20/2024 14:27:52 04/08/20 24 Allergy Immunotherapy Injections completed MICHAELLE SALCEDO RMA [address],[place], [address], [facility] - [facility] 04/08/2024 13:04:02 03/30/20 24 Allergy Immunotherapy Injections completed MECHE LEEDALLIN, RMA [address],[place], [address], [facility] - [facility] 03/30/2024 13:31:25 Imaging Results None recorded. Procedure Notes None recorded. Medical Equipment None Reported. Allergies Allergen ID Allergen Name Allergen Category Reaction Reaction Severity Criticality Documentation Date Start Date Code Code System Note Provider Name and Address Organization Details Recorded Time 22580 morphine medicatio n other Not available Not available 03/22/2024 7052 RxNorm React ion: unkno wn, unspe cifie d;; Not Available [facility] 00:54:57 Medications Name Sig Start Date Stop Date Status Note LastModified by Organization Details LastModified Time medbox status USE DIRECTED active Not Available Not Available No t Available metformin 500 mg tablet 03/10 completed Medicati on ID: [id number] D uration Value: 30 Brand Name: metformi [...] EVELIO C PSULA TODOS LOS D EN MYESHA SAGE WALESKA active Not Available Not Available No t Available albuterol sulfate 2.5 mg/3 mL (0.083 %) solution for nebulizat ion 03/10 completed Medicati on ID: [id number] D uration Value: 15 Brand Name: albutero l sulfate Send Method: E-Prescr ibed Sub s Allowed: subs OK Speci al Instruct ion: INHALE 1 VIAL BY NEBULIZA TION EVERY 4 HOURS NEEDED FOR WHEEZING FOR UP TO 30 DAYS. Me dication GenericN meng: albutero l sulfate Not Available Not Available Not Available trazodone 50 mg tablet 03/10 completed Medicati on ID: [id number] D uration Value: 30 Brand Name: trazodon [...] mg tablet 03/10 completed Medicati on ID: [id number] D uration Value: 30 Brand Name: atorvast [...] mg tablet 03/10 completed Medicati on ID: [id number] D uration Value: 30 Brand Name: clonazep [...] mg tablet 03/18 completed Medicati on ID: [id number] D uration Value: 10 Reason: () Brand Name: morales al-aceta minophen -caff Se nd Method: E-Prescr ibed Sub s Allowed: subs OK Speci al Instruct ion: TOME EVELIO TABLETA CADA OCHO HORAS CUANDO SEA NECESARI O Medica tionGene ricName: morales al-aceta minophen -caff Not Available Not Available [...] topical patch 03/10 completed Medicati on ID: [id number] D uration Value: 28 Brand Name: lidocain e Send Method: E-Prescr ibed Sub s Allowed: subs OK Medic ationGen ericName : lidocain e Not Available Not Available Not Available verapamil ER (PM) 300 mg capsule 24hr pellet CT,ext.re lease 03/10 completed Medicati on ID: [id number] D uration Value: 30 Brand Name: verapami l Send Method: E-Prescr ibed Sub s Allowed: subs OK Speci al Instruct ion: TOME EVELIO CAPSULA POR V?A ORAL TODOS LOS D? Med icationG enericNa me: verapami l Not Available Not Available Not Available Advair Diskus 250 mcg-50 mcg/dose powder for inhalatio n active Medicati on ID: [id number] B rand Name: Advair Diskus S end Method: E-Prescr ibed Sub s Allowed: subs OK Medic ationGen ericName : Advair Diskus Not Available Not Available Not Available nitroglyc deonna 0.4 mg sublingua l tablet 03/10 completed Medicati on ID: [id number] B rand Name: nitrogly cerin Se nd Method: E-Prescr ibed Sub s Allowed: subs OK Medic ationGen ericName : nitrogly cerin Not Available Not Available Not Available mirtazapi ne 45 mg tablet TOME EVELIO TABLETA TODOS LOS D AL [employer]COSTARS E active Not Available Not Available No t Available ammonium lactate 12 % topical cream 03/10 completed Medicati on ID: [id number] D uration Value: 30 Brand Name: ammonium [...] both nostrils 03/10 completed Medicati on ID: [id number] P robbie d By Name: BEST Blackmon nd Name: [...] mg tablet 03/10 completed Medicati on ID: [id number] D uration Value: 7 Brand Name: oxycodon e Send Method: E-Prescr ibed Sub s Allowed: subs OK Medic ationGen ericName : oxycodon e Not Available Not Available Not Available Vitamin B-12 ER 1,000 mcg tablet,ex tended release 03/10 completed Medicati on ID: [id number] D uration Value: 30 Brand Name: Vitamin [...] extended release 05/31 completed Medicati on ID: [id number] D uration Value: 30 Reason: () Brand [...] mg capsule 03/10 completed Medicati on ID: [id number] D uration Value: 30 Brand Name: Lyrica S end Method: E-Prescr ibed Sub s Allowed: subs OK Medic ationGen ericName : Lyrica Not Available Not Available Not Available morphine active Not Available Not Avai lable Not Available DermOtic Oil 0.01 % ear drops 2 drop 03/10 completed Medicati on ID: [id number] P rescribe d By Name: Ozzie Gill nd Name: DermOtic Oil Send Method: E-Prescr ibed Sub s Allowed: subs OK Medic ationGen ericName : DermOtic Oil Not Available Not Available Not Available ProAir HFA 03/10 completed Medicati on ID: [id number] D uration Value: 17 Brand Name: ProAir HFA Send Method: E-Prescr ibed Sub s Allowed: subs OK Speci al Instruct ion: INHALE 2 PUFFS INTO THE LUNGS 4 TIMES DAILY NEEDED FOR WHEEZING OR SHORTNES S OF BREATH. Medicati onGeneri cName: ProAir HFA Not Available Not Available Not Available FreeStyle [place] Lite kit USE DIRECTED TO CHECK BLOOD SUGAR FOUR TIMES DAILY active Not Available Not Available No t Available Novofine 32 32 gauge x 1/4 needle USE DIRECTED FOUR TIMES DAILY active Not Available Not Available No t Available blood pressure test kit-large cuff USE DIRECTED EVERY DAY active Not Available Not Available No t Available BD Ultra-Fin e Arti Pen Needle 32 gauge x 5/32 USE DIRECTED WITH INSULIN FOUR TIMES DAILY active Not Available Not Available No t Available sodium,po tassium,m ag sulfates 17.5 gram-3.13 gram-1.6 gram oral soln active Medicati on ID: [id number] B rand Name: sodium,p otassium ,mag sulfates Send Method: E-Prescr ibed Sub s Allowed: subs OK Medic ationGen ericName : sodium,p otassium ,mag sulfates Not Available Not Available Not Available Vitamin D3 50 mcg (2,000 unit) capsule 03/10 completed Medicati on ID: [id number] D uration Value: 30 Brand Name: Vitamin [...] for inhalatio n active Medicati on ID: [id number] B rand Name: Breo Ellipta Send Method: [...] ous pen injector active Medicati on ID: [id number] B rand Name: Trulicit y Send Method: [...] Diagnosis/Indication Diagnosis SNOMED-CT Code Diagnosis ICD10 Code 03472 ELIZABETH EDMONDSON Allergy [address] [place] [address] 09/07/2024 12:39:33 09/07/2024 15:27:20 Perennial allergic rhinitis [id number] J30.89 37130 NESTOR EDMONDSONA Allergy [address] [place] [address] 09/21/2024 10:30:22 09/21/2024 10:55:14 Perennial allergic rhinitis 820912417 J30.89 Health Concerns Section Related Observation LastModified by Organization Detai ls LastModified Time None Recorded Concern Status LastModified by Organization Details LastModified Time None Recorded Payers Encounter Date Sequence Insurance Name Policy Number Policy Franks Covered Member ID Franks Member ID Guarantor Name 09/21/2024 1 [place] [employer] Naa Pedersen [id number] Naa Pedersen 09/21/2024 2 [place] [facility] Naa Pedersen [id number] Naa Pedersen OBGyn Episode No OBEpisode recorded.
--- OUTSIDE RECORDS SUMMARY | 2024-11-11 16:03 | XMS_ITS | Continuity of Care Document ---
Author Organization [place] - [facility], Allergy Address [address] [address] Assessment Encounter Date Assessment Date Assessment LastModified by Organization Details LastModified Time 09/07/2024 09/07/2024 Administered By: Iman Santos RN Use of Antihistamines: No If yes: Vial Test Change in medications: No If yes ?? Increase in asthma symptoms If yes, inhaler use: Reaction to last injections: No If yes: ?? Allergy Symptoms: Other: ?? Missed 1 week Dose Notes:??missed 1 month dose decreased skorzec Not available 09/07/2024 15:26:46 Plan of Treatment Reminders Order Date Submit [...] Organization Details Recorded Time Itching of skin 240483123 Active 2018 Pruritus, unspecifi ed; Note: Date Diagnosed : 02/08/2019 3:52 PM (L29.9) Not Available [facility] 4 02:22:18 Asthenia 96756054 Active 2018 Asthenia NOS; Note: Date Diagnosed : 10/10/2019 9:51 AM (R53.1) Not Available [facility] 4 02:21:50 Gastro-eso phageal reflux disease with esophagiti s 538329079 Active 2018 Gastro-es ophageal reflux disease with esophagit is; Note: Date Diagnosed : 04/07/2019 1:10 PM (K21.0) Not Available [facility] 4 02:21:39 Allergic rhinitis 20876683 Active 2019 SCIT 03/2024 KAROLINA ALEJANDRO MD [address], [place], [address] , [facility] - [facility] [place] 4 13:42:19 Nasal congestion 06564081 Active 2018 Nasal congestio n; Note: Date Diagnosed : 02/08/2019 3:56 PM (R09.81) Not Available [facility] 4 02:21:46 Perennial allergic rhinitis 400075474 Active 2023 MECHE FERRIS, [facility] [address] [facility] [address],[place] [facility] [place] [facility] [place] [place], [address] , [facility] - [facility] [place] 4 13:30:45 Problem Notes None recorded. Procedures Surgical History Date Name Laterality Status Provider Name and Address Organization Details Recorded Time 09/21/20 24 Allergy Immunotherapy Injections completed MECHE FERRIS [facility] [address] [facility] [address],[place] [place] [address], [address], [facility] - [facility] [place] 09/21/2024 10:54:46 09/07/20 24 Allergy Immunotherapy Injections completed MECHE FERRIS [facility] [address],[place] [address] [place] [address], [address], [facility] - [facility] [place] 09/07/2024 15:26:03 07/29/20 24 Allergy Immunotherapy Injections completed MICHAELLE SALCEDO [facility] [address] [facility] [address],[place] [facility] [place] [facility] [place] [place], [address], [facility] - [facility] [place] 07/29/2024 13:27:22 07/21/20 24 Allergy Immunotherapy Injections completed MECHE FERRIS RMA [address] [facility] [address] [place] [address], [phone], [facility] - [facility] [place] 07/21/2024 10:07:54 07/06/20 24 Allergy Immunotherapy Injections completed IMAN SANTOS RN [address],[place] [facility] [place] [facility] [place], [place], [address], [place] - [facility] [place] 07/06/2024 14:13:42 06/23/20 24 Allergy Immunotherapy Injections completed MECHE LEEDALLIN, RMA [address], [place], [address], [facility] - [facility] [place] 06/23/2024 13:25:45 06/15/20 24 Allergy Immunotherapy Injections completed MECHE ROSAANASTACIAC, RMA [address], [place], [address], [facility] - [facility] 06/15/2024 14:07:46 05/05/20 24 Allergy Immunotherapy Injections completed MECHE LEEDALLIN, RMA [address], [place], [address], [place] [facility] 05/05/2024 13:06:00 04/28/20 24 Allergy Immunotherapy Injections completed MICHAELLE SALCEDO RMA [address],[place] [address] [place] [address], [address], [facility] - [facility] 04/28/2024 14:05:19 04/20/20 24 Allergy Immunotherapy Injections completed MICHAELLE SALCEDO RMA [address] [facility],[place] [place] [address], [address], [facility] - [facility] 04/20/2024 14:27:52 04/08/20 24 Allergy Immunotherapy Injections completed MICHAELLE SALCEDO RMA [address],[place] [address] [place] [address], [address], [facility] - [facility] 04/08/2024 13:04:02 03/30/20 24 Allergy Immunotherapy Injections completed MECHE LEEDALLIN, RMA [address], [place], [address], [facility] - [facility] 03/30/2024 13:31:25 Imaging Results None recorded. Procedure Notes None recorded. Medical Equipment None Reported. Allergies Allergen ID Allergen Name Allergen Category Reaction Reaction Severity Criticality Documentation Date Start Date Code Code System Note Provider Name and Address Organization Details Recorded Time 10125 morphine medicatio n other Not available Not available 03/22/2024 7052 RxNorm React ion: unkno wn, unspe cifie d;; Not Available [facility] 00:54:57 Medications Name Sig Start Date Stop Date Status Note LastModified by Organization Details LastModified Time medbox status USE DIRECTED active Not Available Not Available No t Available metformin 500 mg tablet 03/10 completed Medicati on ID: [id number] D uration Value: 30 Brand Name: metformi [...] C PSULA TODOS LOS D EN MYESHA GALEANO active Not Available Not Available No t Available albuterol sulfate 2.5 mg/3 mL (0.083 %) solution for nebulizat ion 03/10 completed Medicati on ID: [id number] D uration Value: 15 Brand Name: albutero l sulfate Send Method: E-Prescr ibed Sub s Allowed: subs OK Speci al Instruct ion: INHALE 1 VIAL BY NEBULIZA TION EVERY 4 HOURS NEEDED FOR WHEEZING FOR UP TO 30 DAYS. Me dication GenericN meng: albutero l sulfate Not Available Not Available Not Available trazodone 50 mg tablet 03/10 completed Medicati on ID: [id number] D uration Value: 30 Brand Name: trazodon [...] mg tablet 03/10 completed Medicati on ID: [id number] D uration Value: 30 Brand Name: atorvast [...] mg tablet 03/10 completed Medicati on ID: [id number] D uration Value: 30 Brand Name: clonazep [...] mg tablet 03/18 completed Medicati on ID: [id number] D uration Value: 10 Reason: () Brand [...] topical patch 03/10 completed Medicati on ID: [id number] D uration Value: 28 Brand Name: lidocain e Send Method: E-Prescr ibed Sub s Allowed: subs OK Medic ationGen ericName : lidocain e Not Available Not Available Not Available verapamil ER (PM) 300 mg capsule 24hr pellet CT,ext.re lease 03/10 completed Medicati on ID: [id number] D uration Value: 30 Brand Name: verapami l Send Method: E-Prescr ibed Sub s Allowed: subs OK Speci al Instruct ion: TOME EVELIO CAPSULA POR V?A ORAL TODOS LOS D? Med icationG enericNa me: verapami l Not Available Not Available Not Available Advair Diskus 250 mcg-50 mcg/dose powder for inhalatio n active Medicati on ID: [id number] B rand Name: Advair Diskus S end Method: E-Prescr ibed Sub s Allowed: subs OK Medic ationGen ericName : Advair Diskus Not Available Not Available Not Available nitroglyc deonna 0.4 mg sublingua l tablet 03/10 completed Medicati on ID: [id number] B rand Name: nitrogly cerin Se nd Method: E-Prescr ibed Sub s Allowed: subs OK Medic ationGen ericName : nitrogly cerin Not Available Not Available Not Available mirtazapi ne 45 mg tablet TOME EVELIO TABLETA TODOS LOS D AL [employer]COSTARS E active Not Available Not Available No t Available ammonium lactate 12 % topical cream 03/10 completed Medicati on ID: [id number] D uration Value: 30 Brand Name: ammonium [...] both nostrils 03/10 completed Medicati on ID: [id number] Vashti desouza By Name: BEST Blackmon nd Name: azelasti [...] mg tablet 03/10 completed Medicati on ID: [id number] D uration Value: 7 Brand Name: oxycodon e Send Method: E-Prescr ibed Sub s Allowed: subs OK Medic ationGen ericName : oxycodon e Not Available Not Available Not Available Vitamin B-12 ER 1,000 mcg tablet,ex tended release 03/10 completed Medicati on ID: [id number] D uration Value: 30 Brand Name: Vitamin [...] extended release 05/31 completed Medicati on ID: [id number] D uration Value: 30 Reason: () Brand [...] mg capsule 03/10 completed Medicati on ID: [id number] D uration Value: 30 Brand Name: Lyrica S end Method: E-Prescr ibed Sub s Allowed: subs OK Medic ationGen ericName : Lyrica Not Available Not Available Not Available morphine active Not Available Not Avai lable Not Available DermOtic Oil 0.01 % ear drops 2 drop 03/10 completed Medicati on ID: [id number] P raquelribe d By Name: Ozzie Gill nd Name: DermOtic Oil Send Method: E-Prescr ibed Sub s Allowed: subs OK Medic ationGen ericName : DermOtic Oil Not Available Not Available Not Available ProAir HFA 03/10 completed Medicati on ID: [id number] D uration Value: 17 Brand Name: ProAir HFA Send Method: E-Prescr ibed Sub s Allowed: subs OK Speci al Instruct ion: INHALE 2 PUFFS INTO THE LUNGS 4 TIMES DAILY NEEDED FOR WHEEZING OR SHORTNES S OF BREATH. Medicati onGeneri cName: ProAir HFA Not Available Not Available Not Available FreeStyle [place] Lite kit USE DIRECTED TO CHECK BLOOD [...] gram oral soln active Medicati on ID: [id number] B rand Name: sodium,p otassium ,mag sulfates Send Method: E-Prescr ibed Sub s Allowed: subs OK Medic ationGen ericName : sodium,p otassium ,mag sulfates Not Available Not Available Not Available Vitamin D3 50 mcg (2,000 unit) capsule 03/10 completed Medicati on ID: [id number] D uration Value: 30 Brand Name: Vitamin [...] for inhalatio n active Medicati on ID: [id number] B rand Name: Breo Ellipta Send Method: [...] ous pen injector active Medicati on ID: [id number] B rand Name: Trulicit y Send Method: [...] Diagnosis/Indication Diagnosis SNOMED-CT Code Diagnosis ICD10 Code 31498 MECHE FERRIS, RMA Allergy 100 [facility] 100 [facility] [place] [address] 09/07/2024 12:39:33 09/07/2024 15:27:20 Perennial allergic rhinitis [id number] J30.89 Health Concerns Section Related Observation LastModified by Organization Detai ls LastModified Time None Recorded Concern Status LastModified by Organization Details LastModified Time None Recorded Payers Encounter Date Sequence Insurance Name Policy Number Policy Franks Covered Member ID Franks Member ID Guarantor Name 09/07/2024 1 [place] [employer] Naa Pedersen [id number] Naa Pedersen 09/07/2024 2 [place] [facility] Naa Pedersen [id number] Naa Pedersen OBGyn Episode No OBEpisode recorded.
== END 2024-11-11 14:40 | disposition home or self-care (01) ==
LOC: HO.CT 14:39
PROVIDERS: PCP Internal Medicine; Visit Provider Internal Medicine
DX: R91.1 Solitary pulmonary nodule (principal)
CPT/HCPCS: 71250

== ENCOUNTER → 2024-11-11 14:40 | Outpatient (BNV) | payer MEDICARE, MEDICAID, SELFPAY | PROVIDERS: PCP Internal Medicine; Visit Provider Radiology Diagnostic Radiology | DX: R91.1 Solitary pulmonary nodule (principal) | CPT/HCPCS: 71250 ==

== ENCOUNTER 2024-11-14 13:50 | Outpatient (AMB) | payer MEDICARE, MEDICAID, SELFPAY ==
--- NOTE | 2024-11-14 14:08 | A.OFFVIS_ITS ---
Vital Signs 11/14/24 14:09 Height 5 ft 6 in Weight 223 lb BMI 36.0 BP 178/90 H Blood Pressure Location Lt brachial Position Sitting Respiration 15 Pulse 104 H Pulse Source Pulse Oximeter Pulse Oximetry (%) 95 Oxygen Delivery Method Room Air Intake Visit Reasons: Rib pain/Right side Financial Sales Assistant Required: Yes Financial Sales Assistant Name: Gaby Allergies bee pollen [BEE STINGS] Allergy (Unknown, Verified 11/14/24 14:11) ANAPHYLAXIS morphine [MORPHINE] Allergy (Unknown, Verified 11/14/24 14:11) ITCHING Medication List - Last Reconciled 11/14/24 by Miley Cohen LPN albuterol sulfate 2.5 mg (3 mL) inhalation Q4H PRN 30 days albuterol sulfate 90 mcg/actuation (Ventolin HFA) 2 puffs PO QID PRN alirocumab (Praluent Pen) 75 mg subcut Q2W amitriptyline 200 mg PO BEDTIME amlodipine 10 mg PO DAILY 90 days aspirin 81 mg PO DAILY atorvastatin 80 mg PO DAILY blood sugar diagnostic (FreeStyle Lite Strips) Test four times a day or as directed. blood-glucose meter (FreeStyle Lite Meter kit) As Directed eaxmkrtphu-wnzlvccufjlao-azkf 50-325-40 mg 1 tab PO TID PRN cetirizine 10 mg PO BEDTIME cholecalciferol (vitamin D3) 50 mcg PO DAILY clonazepam 1 mg PO BID PRN cyanocobalamin (vitamin B-12) 1,000 mcg PO DAILY cyclobenzaprine 5 mg PO TID PRN 7 days dulaglutide (Trulicity) mg subcut dulaglutide (Trulicity) mg subcut epinephrine 3 mg IM DIRECTED estradiol 0.01%(0.1mg/gram) (Estrace) 1 g vaginal 3XW 90 days ezetimibe (Zetia) 10 mg PO DAILY 90 days fluticasone propionate 50 mcg/actuation 2 sprays intranasal DAILY insulin glargine (Lantus Solostar U-100 Insulin) 40 units (0.4 mL) subcut DAILY insulin lispro (Humalog KwikPen (U-100) Insulin) 1 sliding scale dose subcut QIDACHS lancets (FreeStyle Lancets) Test four times a day or as directed. lancets (TRUEplus Lancets) As directed lidocaine 5% (Lidoderm) 1 patch topical DAILY 30 days lisinopril 2.5 mg PO DAILY metformin ER 1,000 mg PO QAM metoclopramide HCl 5 mg PO TID mirtazapine 45 mg PO BEDTIME nebulizers As directed omeprazole 40 mg PO BID pen needle, diabetic Use four times a day or as directed. pregabalin 200 mg PO BID sennosides (senna) 17.2 mg (2 x 8.6 mg) PO BEDTIME 30 days simethicone 180 mg PO QID PRN topiramate 100 mg PO BID trazodone 100 mg PO BEDTIME venlafaxine ER 37.5 mg PO DAILY HPI Comments Details: Naa is very pleasant 68 years old female who presents in my office with complains on pain in right-sided chest in the projection of the midportion of the lower ribs. She denies pain radiating to the abdomen. She denies pain starting from the back. She denied recent trauma of the chest, denied acute viral illnesses which could cause excessive coughing. She went for x-ray images of the right side of the chest which demonstrated no pathology accept old rib fractures at rib 3 and rib 4. She also went for CT scan which found some ground-glass opacification nodules of very small size in her lungs. She has a enlarged liver and enlarged spleen. It is very likely that her pain is coming from liver cirrhosis. She is also suffering from postlaminectomy syndrome and complains on pain in the lower back which is now on the background of the chest pain is less severe. In the past she received steroid hip injections with good results from me. I do not see any reason to perform intercostal injections. It is unlikely that her condition is related to rib pathology. We discussed possibility of treating her pain with intrathecal pain pump today. The brochure was given. If patient is interested I will schedule her for an appointment to discuss this further. Prior:. She was referred to me by Dr. Roberts orthopedic surgery for the perf ormance of the right hip intra-articular injection. Today she is here for her 1st appointment after the intra-articular hip injection. She reports very good injection results with absence of the pain in the right groin. However with the absence of the severe pain from the hip joint her pain in the lower back became more prominent. She reported to me that she had 5 surgeries in the back. She reported that the last surgery was about 5-6 years ago. We decided today that I will send her for evaluation of the lumbar spine and her pelvis to make conclusion on where the pain from the lower back is coming. Her medical problems include diabetes, asthma, hypertension , angina pectoris under observation of Dr. Freeman, morbid obesity. Her past surgical history is above-mentioned spinal surgeries. She denies smoking cigarettes drinking alcohol using recreational drugs. She is retired individual. [facility] Medical History Periumbilical abdominal pain EDWIN on CPAP Chronic restrictive lung disease Chronic allergic rhinitis Asthma Other and unspecified hyperlipidemia Essential hypertension Type 2 diabetes mellitus with unspecified complications Atherosclerotic cardiovascular disease Surgical History History of esophagogastroduodenoscopy (EGD) Hx of colonoscopy Family History Mother HTN (hypertension) Heart disease Asthma Maternal Aunt Breast cancer Maternal Aunt Tumor Maternal Aunt Cancer Social History Household Members: Spouse and Family Household Members Other:: 4 household members Housing: Apartment Do you presently have visiting nurse or other home services: No Alcohol intake: never Patient Tobacco Use Status: Never used Tobacco service: No Review of Systems Const All systems reviewed & are unremarkable except as noted in HPI and below Physical Exam Vital Signs: Last Vital Signs Pulse 104 H 11/14/24 14:09 Resp 15 11/14/24 14:09 BP 178/90 H 11/14/24 14:09 Pulse Ox 95 11/14/24 14:09 Oxygen Delivery Method Room Air 11/14/24 14:09 BMI result Body Mass Index 36.0 Const General: no acute distress, alert and awake Orientation/consciousness: patient oriented x3 HEENT Head: Yes normocephalic and Yes atraumatic Eyes EOM: EOMs intact bilaterally Resp Effort & Inspection: normal respiratory effort and able to speak in complete sentences Cardio Jugular venous distension: no JVD Back/Spine/Pelvis Other: Tenderness on palpation in paraspinal spinal region of the lumbar spine in the projection of the upper sacral bone and lower lumbar vertebra. There are very well-healed 2 scars in the projection of approximately L2-L3 lumbar vertebra and approximately L4-S1 lumbar vertebra on the back. There is minor tenderness on palpation in the projection of the lateral right chest. Skin General skin exam: turgor normal Rashes: no rashes Neuro General: patient oriented x3 Extrem Other: + gait antalgia + Stinchfield +Impignement Psych Appearance: grossly normal Affect: normal affect Attitude: cooperative Assessment & Plan Assessment & Plan (1) Postlaminectomy syndrome: Code(s): M96.1 - Postlaminectomy syndrome, not elsewhere classified Category: Medical Plan: (2) Osteoarthritis of right hip: Code(s): M16.11 - Unilateral primary osteoarthritis, right hip Category: Medical Qualifiers: Osteoarthritis type: primary Qualified Code(s): M16.11 - Unilateral primary osteoarthritis, right hip Plan: Chitra is in the office today with complains on right-sided chest. She is suffering from enlarged liver. At least today after examination of her CT scan of the chest and x-ray of the chest I do not see any overt rib pathology which would require intercostal injections. If the pain is coming from the liver the treatment for this condition could be intrathecal pain pump. Brochure was given. If she is interested we will invite her to the discussion about intrathecal drug delivery system pain pump and she would need to go through psy chological evaluation. (3) Chronic pain syndrome: Code(s): G89.4 - Chronic pain syndrome Category: Medical Plan: Coding Level of Care Code Est Pt Level 3 (25424) Diagnoses Postlaminectomy syndrome M96.1 Primary osteoarthritis of right hip M16.11 Osteoarthritis type: primary Chronic pain syndrome G89.4
[2024-11-14 14:09] VITALS: BP 178/90; PULSE 104; RESP 15; O2SAT 95; BMI 36.0
--- OUTSIDE RECORDS SUMMARY | 2024-11-14 16:13 | XMS_ITS | Continuity of Care Document ---
Author Organization [place] - [facility], Allergy Address [address] [address] Assessment Encounter Date Assessment Date Assessment LastModified [...] Organization Details Recorded Time Itching of skin 505248191 Active 2018 Pruritus, unspecifi ed; Note: Date Diagnosed : 02/08/2019 3:52 PM (L29.9) Not Available [facility] 4 02:22:18 Asthenia 72948434 Active 2018 Asthenia NOS; Note: Date Diagnosed : 10/10/2019 9:51 AM (R53.1) [facility] 4 02:21:50 Gastro-eso phageal reflux disease with esophagiti s 237680668 Active 2018 Gastro-es ophageal reflux disease with esophagit is; Note: Date Diagnosed : 04/07/2019 1:10 PM (K21.0) Not Available [facility] 4 02:21:39 Allergic rhinitis 77882691 Active 2019 SCIT 03/2024 KAROLINA ALEJANDRO MD [address],[place] [address], [facility] [place], [address] , [facility] - [facility] 4 13:42:19 Nasal congestion 41770475 Active 2018 Nasal congestio n; Note: Date Diagnosed : 02/08/2019 3:56 PM (R09.81) Not Available [facility] 4 02:21:46 Perennial allergic rhinitis 965611751 Active 2023 MECHE FERRIS, [facility] [address],[place] [facility], [facility] [place], [address] , [facility] - [facility] 4 13:30:45 Problem Notes None recorded. Procedures Surgical History Date Name Laterality Status Provider Name and Address Organization Details Recorded Time 09/21/20 24 Allergy Immunotherapy Injections completed MECHE FERRIS [facility] [address],[place] [address] [place] [address], [phone], [facility] - [facility] 09/21/2024 10:54:46 09/07/20 24 Allergy Immunotherapy Injections completed MECHE FERRIS [facility] [address],[place] [address] [place] [address], [phone], [facility] - [facility] 09/07/2024 15:26:03 07/29/20 24 Allergy Immunotherapy Injections completed MICHAELLE SALCEDO [facility] [address],[place] [facility], [place], [address], [facility] - [facility] 07/29/2024 13:27:22 07/21/20 24 Allergy Immunotherapy Injections completed MECHE FERRIS RMA [address],[place] [address] [place] [address], [phone], [facility] - [facility] 07/21/2024 10:07:54 07/06/20 24 Allergy Immunotherapy Injections completed IMAN SANTOS RN [address],[place] [facility], [place], [address], [place] - [facility] 07/06/2024 14:13:42 06/23/20 24 Allergy Immunotherapy Injections completed MECHE LEEDALLIN, RMA [address],[place] [address], [place], [address], [facility] - [facility] 06/23/2024 13:25:45 06/15/20 24 Allergy Immunotherapy Injections completed MECHE ROSAANASTACIAC, RMA [address],[place] [address], [place], [address], [facility] - [facility] 06/15/2024 14:07:46 05/05/20 24 Allergy Immunotherapy Injections completed MECHE LEEDALLIN, RMA [address],[place] [address], [place], [address], [place] - [facility] 05/05/2024 13:06:00 04/28/20 24 Allergy Immunotherapy Injections completed MICHAELLE SALCEDO RMA [address],[place] [address] [place] [address], [phone], [facility] - [facility] 04/28/2024 14:05:19 04/20/20 24 Allergy Immunotherapy Injections completed MICHAELLE SALCEDO RMA [address],[place] [address] [place] [address], [phone], [facility] - [facility] 04/20/2024 14:27:52 04/08/20 24 Allergy Immunotherapy Injections completed MICHAELLE SALCEDO RMA [address],[place] [address] [place] [address], [phone], [facility] - [facility] 04/08/2024 13:04:02 03/30/20 24 Allergy Immunotherapy Injections completed MECHE LEEDALLIN, RMA [address] [address], [place], [address], [facility] - [facility] 03/30/2024 13:31:25 Imaging Results None recorded. Procedure Notes None recorded. Medical Equipment None Reported. Allergies Allergen ID Allergen Name Allergen Category Reaction Reaction Severity Criticality Documentation Date Start Date Code Code System Note Provider Name and Address Organization Details Recorded Time 40113 morphine medicatio n other Not available Not available 03/22/2024 7052 RxNorm React ion: unkno wn, unspe cifie d;; Not Available [facility] 00:54:57 Medications Name Sig Start Date Stop Date Status Note LastModified by Organization Details LastModified Time medbox status USE DIRECTED active Not Available Not Available No t Available metformin 500 mg tablet 03/10 completed Medicati on ID: [id number] D uration Value: 30 Brand Name: metformi [...] nebulizat ion 03/10 completed Medicati on ID: [id number] D uration Value: 15 Brand Name: albutero l sulfate Send Method: E-Prescr ibed Sub s Allowed: subs OK Speci al Instruct ion: INHALE 1 VIAL BY NEBULIZA TION EVERY 4 HOURS NEEDED FOR WHEEZING FOR UP TO 30 DAYS. Me dication GenericN meng: albutero l sulfate Not Available Not Available Not Available trazodone 50 mg tablet 03/10 completed Medicati on ID: [id number] D uration Value: 30 Brand Name: trazodon [...] mg tablet 03/10 completed Medicati on ID: [id number] D uration Value: 30 Brand Name: atorvast [...] mg tablet 03/10 completed Medicati on ID: [id number] D uration Value: 30 Brand Name: clonazep [...] mg tablet 03/18 completed Medicati on ID: [id number] D uration Value: 10 Reason: () Brand [...] topical patch 03/10 completed Medicati on ID: [id number] D uration Value: 28 Brand Name: lidocain e Send Method: E-Prescr ibed Sub s Allowed: subs OK Medic ationGen ericName : lidocain e Not Available Not Available Not Available verapamil ER (PM) 300 mg capsule 24hr pellet CT,ext.re lease 03/10 completed Medicati on ID: [id number] D uration Value: 30 Brand Name: verapami l Send Method: E-Prescr ibed Sub s Allowed: subs OK Speci al Instruct ion: TOME EVELIO CAPSULA POR V?A ORAL TODOS LOS D? Med icationG enericNa me: verapami l Not Available Not Available Not Available Advair Diskus 250 mcg-50 mcg/dose powder for inhalatio n active Medicati on ID: [id number] B rand Name: Advair Diskus S end Method: E-Prescr ibed Sub s Allowed: subs OK Medic ationGen ericName : Advair Diskus Not Available Not Available Not Available nitroglyc deonna 0.4 mg sublingua l tablet 03/10 completed Medicati on ID: [id number] B rand Name: nitrogly cerin Se nd Method: E-Prescr ibed Sub s Allowed: subs OK Medic ationGen ericName : nitrogly cerin Not Available Not Available Not Available mirtazapi ne 45 mg tablet TOME EVELIO TABLETA TODOS LOS D AL [employer] E active Not Available Not Available No t Available ammonium lactate 12 % topical cream 03/10 completed Medicati on ID: [id number] D uration Value: 30 Brand Name: ammonium [...] both nostrils 03/10 completed Medicati on ID: [id number] Vashti desouza By Name: BEST Blackmon nd [...] mg tablet 03/10 completed Medicati on ID: [id number] D uration Value: 7 Brand Name: oxycodon e Send Method: E-Prescr ibed Sub s Allowed: subs OK Medic ationGen ericName : oxycodon e Not Available Not Available Not Available Vitamin B-12 ER 1,000 mcg tablet,ex tended release 03/10 completed Medicati on ID: [id number] D uration Value: 30 Brand Name: Vitamin [...] extended release 05/31 completed Medicati on ID: [id number] D uration Value: 30 Reason: () Brand [...] mg capsule 03/10 completed Medicati on ID: [id number] D uration Value: 30 Brand Name: Lyrica S end Method: E-Prescr ibed Sub s Allowed: subs OK Medic ationGen ericName : Lyrica Not Available Not Available Not Available morphine active Not Available Not Avai lable Not Available DermOtic Oil 0.01 % ear drops 2 drop 03/10 completed Medicati on ID: [id number] P raquelribe d By Name: Ozzie Gill nd Name: DermOtic Oil Send Method: E-Prescr ibed Sub s Allowed: subs OK Medic ationGen ericName : DermOtic Oil Not Available Not Available Not Available ProAir HFA 03/10 completed Medicati on ID: [id number] D uration Value: 17 Brand Name: ProAir HFA Send Method: E-Prescr ibed Sub s Allowed: subs OK Speci al Instruct ion: INHALE 2 PUFFS INTO THE LUNGS 4 TIMES DAILY NEEDED FOR WHEEZING OR SHORTNES S OF BREATH. Medicati onGeneri cName: ProAir HFA Not Available Not Available Not Available FreeStyle Tuttle Lite kit USE DIRECTED TO CHECK BLOOD [...] gram oral soln active Medicati on ID: [id number] B rand Name: sodium,p otassium ,mag sulfates Send Method: E-Prescr ibed Sub s Allowed: subs OK Medic ationGen ericName : sodium,p otassium ,mag sulfates Not Available Not Available Not Available Vitamin D3 50 mcg (2,000 unit) capsule 03/10 completed Medicati on ID: [id number] D uration Value: 30 Brand Name: Vitamin [...] for inhalatio n active Medicati on ID: [id number] B rand Name: Breo Ellipta Send Method: [...] ous pen injector active Medicati on ID: [id number] B rand Name: Trulicit y Send Method: [...] Diagnosis/Indication Diagnosis SNOMED-CT Code Diagnosis ICD10 Code Diagnosis Note [id number] MECHE MASTERSONC, RMA Allergy 100 [facility] [address] [place] [address] 09/07/2024 12:39:33 09/07/2024 15:27:20 Perennial allergic rhinitis [id number] J30.89 Health Concerns Section Related Observation LastModified by Organization Detai ls LastModified Time None Recorded Concern Status LastModified by Organization Details LastModified Time None Recorded Payers Encounter Date Sequence Insurance Name Policy Number Policy Franks Covered Member ID Franks Member ID Guarantor Name 09/07/2024 1 [place] [employer] Naa Pedersen [id number] aNa Pedersen 09/07/2024 2 [place] [facility] Naa Pedersen [id number] Naa Pedersen OBGyn Episode No OBEpisode recorded.
--- OUTSIDE RECORDS SUMMARY | 2024-11-14 16:13 | XMS_ITS | Continuity of Care Document ---
Author Organization [place] [facility], Allergy Address [address] [address] Assessment Encounter Date Assessment Date Assessment LastModified [...] Organization Details Recorded Time Itching of skin [id number] Active 2018 Pruritus, unspecifi ed; Note: Date Diagnosed : 02/08/2019 3:52 PM (L29.9) Not Available [facility] 4 02:22:18 Asthenia [id number] Active 2018 Asthenia NOS; Note: Date Diagnosed : 10/10/2019 9:51 AM (R53.1) Not Available [facility] 4 02:21:50 Gastro-eso phageal reflux disease with esophagiti s [id number] Active 2018 Gastro-es ophageal reflux disease with esophagit is; Note: Date Diagnosed : 04/07/2019 1:10 PM (K21.0) Not Available [facility] 4 02:21:39 Allergic rhinitis 89468591 Active 2019 [facility] 03/2024 KAROLINA ALEJANDRO MD [address], [place], [address] , [facility] - [facility] [place] 4 13:42:19 Nasal congestion 29212480 Active 2018 Nasal congestio n; Note: Date Diagnosed : 02/08/2019 3:56 PM (R09.81) Not Available [facility] 4 02:21:46 Perennial allergic rhinitis [id number] Active 2023 MECHE FERRIS [facility] [address] [facility] [address],[place] [facility], [place], [address] , [facility] - [facility] [place] 4 13:30:45 Problem Notes None recorded. Procedures Surgical History Date Name Laterality Status Provider Name and Address Organization Details Recorded Time 09/21/20 24 Allergy Immunotherapy Injections completed MECHE FERRIS [facility] [address] [facility] [address],[place] [address] [place] [address], [phone], [facility] - [facility] [place] 09/21/2024 10:54:46 09/07/20 24 Allergy Immunotherapy Injections completed MECHE FERRIS [facility] [address],[place] [place] [address], [phone], [facility] - [facility] [place] 09/07/2024 15:26:03 07/29/20 24 Allergy Immunotherapy Injections completed MICHAELLE SALCEDO [facility] [address] [place] [address], [phone], [facility] - [facility] [place] 07/29/2024 13:27:22 07/21/20 24 Allergy Immunotherapy Injections completed MECHE FERRIS RMA [address],[place] [place] [address], [phone], [facility] - [facility] [place] 07/21/2024 10:07:54 07/06/20 24 Allergy Immunotherapy Injections completed IMAN SANTOS RN [address] [facility] [address],[place] [address] [place] [address], [phone], [facility] - [facility] [place] 07/06/2024 14:13:42 06/23/20 24 Allergy Immunotherapy Injections completed MECHE LEEDALLIN, RMA [address], [place], [address], [facility] - [facility] 06/23/2024 13:25:45 06/15/20 24 Allergy Immunotherapy Injections completed MECHE MASTERSONC, RMA [address], [place], [address], [facility] - [facility] 06/15/2024 14:07:46 05/05/20 24 Allergy Immunotherapy Injections completed MECHE LEEANASTACIAC, RMA [address], [place], [address], [facility] - [facility] 05/05/2024 13:06:00 04/28/20 24 Allergy Immunotherapy Injections completed MICHAELLE SALCEDO RMA [address],[place] [facility], [place], [address], [facility] - [facility] 04/28/2024 14:05:19 04/20/20 24 Allergy Immunotherapy Injections completed MICHAELLE SALCEDO RMA [address] [place] [address], [phone], [facility] - [facility] 04/20/2024 14:27:52 04/08/20 24 Allergy Immunotherapy Injections completed MICHAELLE SALCEDO RMA [address], [place], [address], [facility] - [facility] 04/08/2024 13:04:02 03/30/20 24 Allergy Immunotherapy Injections completed MECHE LEEDALLIN, RMA [address], [place], [address], [facility] - [facility] 03/30/2024 13:31:25 Imaging Results None recorded. Procedure Notes None recorded. Medical Equipment None Reported. Allergies Allergen ID Allergen Name Allergen Category Reaction Reaction Severity Criticality Documentation Date Start Date Code Code System Note Provider Name and Address Organization Details Recorded Time 90231 morphine medicatio n other Not available Not available 03/22/2024 7052 RxNorm React ion: unkno wn, unspe cifie d;; Not Available [facility] 00:[facility]57 Medications Name Sig Start Date Stop Date Status Note LastModified by Organization Details LastModified Time medbox status USE DIRECTED active Not Available Not Available No t Available metformin 500 mg tablet 03/10 completed Medicati on ID: [id number] D uration Value: 30 Brand Name: metformi [...] nebulizat ion 03/10 completed Medicati on ID: [id number] D uration Value: 15 Brand Name: albutero l sulfate Send Method: E-Prescr ibed Sub s Allowed: subs OK Speci al Instruct ion: INHALE 1 VIAL BY NEBULIZA TION EVERY 4 HOURS NEEDED FOR WHEEZING FOR UP TO 30 DAYS. Me dication GenericN meng: albutero l sulfate Not Available Not Available Not Available trazodone 50 mg tablet 03/10 completed Medicati on ID: [id number] D uration Value: 30 Brand Name: trazodon [...] mg tablet 03/10 completed Medicati on ID: [id number] D uration Value: 30 Brand Name: atorvast [...] mg tablet 03/10 completed Medicati on ID: [id number] D uration Value: 30 Brand Name: clonazep [...] mg tablet 03/18 completed Medicati on ID: [id number] D uration Value: 10 Reason: () Brand [...] topical patch 03/10 completed Medicati on ID: [id number] D uration Value: 28 Brand Name: lidocain e Send Method: E-Prescr ibed Sub s Allowed: subs OK Medic ationGen ericName : lidocain e Not Available Not Available Not Available verapamil ER (PM) 300 mg capsule 24hr pellet CT,ext.re lease 03/10 completed Medicati on ID: [id number] D uration Value: 30 Brand Name: verapami l Send Method: E-Prescr ibed Sub s Allowed: subs OK Speci al Instruct ion: TOME EVELIO CAPSULA POR V?A ORAL TODOS LOS D? Med icationG enericNa me: verapami l Not Available Not Available Not Available Advair Diskus 250 mcg-50 mcg/dose powder for inhalatio n active Medicati on ID: [id number] B rand Name: Advair Diskus S end Method: E-Prescr ibed Sub s Allowed: subs OK Medic ationGen ericName : Advair Diskus Not Available Not Available Not Available nitroglyc deonna 0.4 mg sublingua l tablet 03/10 completed Medicati on ID: [id number] B rand Name: nitrogly cerin Se nd Method: E-Prescr ibed Sub s Allowed: subs OK Medic ationGen ericName : nitrogly cerin Not Available Not Available Not Available mirtazapi ne 45 mg tablet TOME EVELIO TABLETA TODOS LOS D AL [employer]ARS E active Not Available Not Available No t Available ammonium lactate 12 % topical cream 03/10 completed Medicati on ID: [id number] D uration Value: 30 Brand Name: ammonium [...] both nostrils 03/10 completed Medicati on ID: [id number] P robbie d By Name: BEST Blackmon [...] mg tablet 03/10 completed Medicati on ID: [id number] D uration Value: 7 Brand Name: oxycodon e Send Method: E-Prescr ibed Sub s Allowed: subs OK Medic ationGen ericName : oxycodon e Not Available Not Available Not Available Vitamin B-12 ER 1,000 mcg tablet,ex tended release 03/10 completed Medicati on ID: [id number] D uration Value: 30 Brand Name: Vitamin [...] extended release 05/31 completed Medicati on ID: [id number] D uration Value: 30 Reason: () Brand [...] mg capsule 03/10 completed Medicati on ID: [id number] D uration Value: 30 Brand Name: Lyrica S end Method: E-Prescr ibed Sub s Allowed: subs OK Medic ationGen ericName : Lyrica Not Available Not Available Not Available morphine active Not Available Not Avai lable Not Available DermOtic Oil 0.01 % ear drops 2 drop 03/10 completed Medicati on ID: [id number] P rescribe d By Name: Ozzie Gill nd Name: DermOtic Oil Send Method: E-Prescr ibed Sub s Allowed: subs OK Medic ationGen ericName : DermOtic Oil Not Available Not Available Not Available ProAir HFA 03/10 completed Medicati on ID: [id number] D uration Value: 17 Brand Name: ProAir HFA Send Method: E-Prescr ibed Sub s Allowed: subs OK Speci al Instruct ion: INHALE 2 PUFFS INTO THE LUNGS 4 TIMES DAILY NEEDED FOR WHEEZING OR SHORTNES S OF BREATH. Medicati onGeneri cName: ProAir HFA Not Available Not Available Not Available FreeStyle Cazadero Lite kit USE DIRECTED TO CHECK BLOOD [...] gram oral soln active Medicati on ID: [id number] B rand Name: sodium,p otassium ,mag sulfates Send Method: E-Prescr ibed Sub s Allowed: subs OK Medic ationGen ericName : sodium,p otassium ,mag sulfates Not Available Not Available Not Available Vitamin D3 50 mcg (2,000 unit) capsule 03/10 completed Medicati on ID: [id number] D uration Value: 30 Brand Name: Vitamin [...] for inhalatio n active Medicati on ID: [id number] B rand Name: Breo Ellipta Send Method: [...] ous pen injector active Medicati on ID: [id number] B rand Name: Trulicit y Send Method: [...] SNOMED-CT Code Diagnosis ICD10 Code Diagnosis Note [id number] ELIZABETH EDMONDSON [facility] [address] [place] [address] 09/07/2024 12:39:33 09/07/2024 15:27:20 Perennial allergic rhinitis [id number] J30.89 [id number] NESTOR EDMONDSONA Allergy [address] [place] [address] 09/21/2024 10:30:22 09/21/2024 10:55:14 Perennial allergic rhinitis [id number] J30.89 Health Concerns Section Related Observation LastModified by Organization Detai ls LastModified Time None Recorded Concern Status LastModified by Organization Details LastModified Time None Recorded Payers Encounter Date Sequence Insurance Name Policy Number Policy Franks Covered Member ID Franks Member ID Guarantor Name 09/21/2024 1 [place]: [employer] Naa Pedersen [id number] Naa Pedersen 09/21/2024 2 [place] [facility] Naa Pedersen [id number] Naa Pedersen OBGyn Episode No OBEpisode recorded.
--- OUTSIDE RECORDS SUMMARY | 2024-11-14 16:13 | XMS_ITS | Data Portability ---
Author Organization [place] - [facility], Allergy Address [address] [address] Assessment Encounter Date Assessment Date Assessment LastModified [...] Other: ?? Missed 1 week Dose Notes:?? [email or web address] Not available 07/29/2024 13:27:27 09/07/2024 09/07/2024 Administered [...] Organization Details Recorded Time Itching of skin [id number] Active 2018 Pruritus, unspecifi ed; Note: Date Diagnosed : 02/08/2019 3:52 PM (L29.9) Not Available [facility] 4 02:22:18 Asthenia [id number] Active 2018 Asthenia NOS; Note: Date Diagnosed : 10/10/2019 9:51 AM (R53.1) Not Available [facility] 4 02:21:50 Gastro-eso phageal reflux disease with esophagiti s 870892138 Active 2018 Gastro-es ophageal reflux disease with esophagit is; Note: Date Diagnosed : 04/07/2019 1:10 PM (K21.0) Not Available [facility] 4 02:21:39 Allergic rhinitis 97617499 Active 2019 SCIT 03/2024 ANDREW ALEJANDRO MD [address] [place] [address], [facility] ALONA desouza, [address] , [facility] - [facility] 4 13:42:19 Nasal congestion 54255173 Active 2018 Nasal congestio n; Note: Date Diagnosed : 02/08/2019 3:56 PM (R09.81) Not Available [facility] 02:21:46 Perennial allergic rhinitis 484988933 Active 2023 MECHE ALEJAC, RMA [address], [place], [address] , [facility] - [facility] 13:30:45 Problem Notes None recorded. Procedures Surgical History Date Name Laterality Status Provider Name and Address Organization Details Recorded Time 09/21/20 24 Allergy Immunotherapy Injections completed MECHE ROSAANASTACIAC, RMA [address], [place], [address], [facility] - [facility] 09/21/2024 10:54:46 09/07/20 24 Allergy Immunotherapy Injections completed MECHE MASTERSONC, RMA [address], [place], [address], [facility] - [facility] 09/07/2024 15:26:03 07/29/20 24 Allergy Immunotherapy Injections completed LESA BRINK, RMA [address], [place], [address], [facility] - [facility] 07/29/2024 13:27:22 07/21/20 24 Allergy Immunotherapy Injections completed MECHE FERRIS, RMA [address] [place] [address], [address], [facility] - [facility] 07/21/2024 10:07:54 07/06/20 24 Allergy Immunotherapy Injections completed IMAN SANTOS RN [address], [place], [address], [facility] - [facility] 07/06/2024 14:13:42 06/23/20 24 Allergy Immunotherapy Injections completed MECHE FERRIS, RMA [address], [place], [address], [place] - [facility] 06/23/2024 13:25:45 06/15/20 24 Allergy Immunotherapy Injections completed MECHE FERRIS, RMA [address], [place], [address], [facility] - [facility] 06/15/2024 14:07:46 05/05/20 24 Allergy Immunotherapy Injections completed MECHE FERRIS [facility] 100 [facility],[address], [address], [facility] - [facility] 05/05/2024 13:06:00 04/28/20 24 Allergy Immunotherapy Injections completed LESA DENISSE [facility] 100 [facility],[address], [address], [facility] - [facility] 04/28/2024 14:05:19 04/20/20 24 Allergy Immunotherapy Injections completed LESATulio BRINK [address], [address], [facility] 04/20/2024 14:27:52 04/08/20 24 Allergy Immunotherapy Injections completed LESATulio BRINK [address], [address], [facility] 04/08/2024 13:04:02 03/30/20 24 Allergy Immunotherapy Injections completed MECHE MASTERSONShelia [address], [address], [facility] 03/30/2024 13:31:25 Imaging Results None recorded. Procedure Notes None recorded. Medical Equipment None Reported. Allergies Allergen ID Allergen Name Allergen Category Reaction Reaction Severity Criticality Documentation Date Start Date Code Code System Note Provider Name and Address Organization Details Recorded Time 80648 morphine medicatio n other Not available Not available 03/22/2024 7052 RxNorm React ion: unkno wn, unspe cifie d;; Not Available [facility] 00:54:57 Medications Name Sig Start Date Stop Date Status Note LastModified by Organization Details LastModified Time medbox status USE DIRECTED active Not Available Not Available No t Available metformin 500 mg tablet 03/10 completed Medicati on ID: [id number] D uration Value: 30 Brand Name: metformi [...] nebulizat ion 03/10 completed Medicati on ID: [id number] D uration Value: 15 Brand Name: albutero l sulfate Send Method: E-Prescr ibed Sub s Allowed: subs OK Speci al Instruct ion: INHALE 1 VIAL BY NEBULIZA TION EVERY 4 HOURS NEEDED FOR WHEEZING FOR UP TO 30 DAYS. Me dication GenericN meng: albutero l sulfate Not Available Not Available Not Available trazodone 50 mg tablet 03/10 completed Medicati on ID: [id number] D uration Value: 30 Brand Name: trazodon [...] mg tablet 03/10 completed Medicati on ID: [id number] D uration Value: 30 Brand Name: atorvast [...] mg tablet 03/10 completed Medicati on ID: [id number] D uration Value: 30 Brand Name: clonazep [...] mg tablet 03/18 completed Medicati on ID: [id number] D uration Value: 10 Reason: () Brand [...] topical patch 03/10 completed Medicati on ID: [id number] D uration Value: 28 Brand Name: lidocain e Send Method: E-Prescr ibed Sub s Allowed: subs OK Medic ationGen ericName : lidocain e Not Available Not Available Not Available verapamil ER (PM) 300 mg capsule 24hr pellet CT,ext.re lease 03/10 completed Medicati on ID: [id number] D uration Value: 30 Brand Name: verapami l Send Method: E-Prescr ibed Sub s Allowed: subs OK Speci al Instruct ion: TOME EVELIO CAPSULA POR V?A ORAL TODOS LOS D? Med icationG enericNa me: verapami l Not Available Not Available Not Available Advair Diskus 250 mcg-50 mcg/dose powder for inhalatio n active Medicati on ID: [id number] B rand Name: Advair Diskus S end Method: E-Prescr ibed Sub s Allowed: subs OK Medic ationGen ericName : Advair Diskus Not Available Not Available Not Available nitroglyc deonna 0.4 mg sublingua l tablet 03/10 completed Medicati on ID: [id number] B rand Name: nitrogly cerin Se nd Method: E-Prescr ibed Sub s Allowed: subs OK Medic ationGen ericName : nitrogly cerin Not Available Not Available Not Available mirtazapi ne 45 mg tablet TOME EVELIO TABLETA TODOS LOS D AL [employer] E active Not Available Not Available No t Available ammonium lactate 12 % topical cream 03/10 completed Medicati on ID: [id number] D uration Value: 30 Brand Name: ammonium [...] both nostrils 03/10 completed Medicati on ID: [id number] Vashti avalos d By Name: BEST Blackmon [...] mg tablet 03/10 completed Medicati on ID: [id number] D uration Value: 7 Brand Name: oxycodon e Send Method: E-Prescr ibed Sub s Allowed: subs OK Medic ationGen ericName : oxycodon e Not Available Not Available Not Available Vitamin B-12 ER 1,000 mcg tablet,ex tended release 03/10 completed Medicati on ID: [id number] D uration Value: 30 Brand Name: Vitamin [...] extended release 05/31 completed Medicati on ID: [id number] D uration Value: 30 Reason: () Brand [...] mg capsule 03/10 completed Medicati on ID: [id number] D uration Value: 30 Brand Name: Lyrica S end Method: E-Prescr ibed Sub s Allowed: subs OK Medic ationGen ericName : Lyrica Not Available Not Available Not Available morphine active Not Available Not Avai lable Not Available DermOtic Oil 0.01 % ear drops 2 drop 03/10 completed Medicati on ID: [id number] P rescribe d By Name: Andrew Alejandro M.D. Bra nd Name: DermOtic Oil Send Method: E-Prescr ibed Sub s Allowed: subs OK Medic ationGen ericName : DermOtic Oil Not Available Not Available Not Available ProAir HFA 03/10 completed Medicati on ID: [id number] D uration Value: 17 Brand Name: ProAir HFA Send Method: E-Prescr ibed Sub s Allowed: subs OK Speci al Instruct ion: INHALE 2 PUFFS INTO THE LUNGS 4 TIMES DAILY NEEDED FOR WHEEZING OR SHORTNES S OF BREATH. Medicati onGeneri cName: ProAir HFA Not Available Not Available Not Available FreeStyle Avon Lite kit USE DIRECTED TO CHECK BLOOD [...] gram oral soln active Medicati on ID: [id number] B rand Name: sodium,p otassium ,mag sulfates Send Method: E-Prescr ibed Sub s Allowed: subs OK Medic ationGen ericName : sodium,p otassium ,mag sulfates Not Available Not Available Not Available Vitamin D3 50 mcg (2,000 unit) capsule 03/10 completed Medicati on ID: [id number] D uration Value: 30 Brand Name: Vitamin [...] for inhalatio n active Medicati on ID: 945992 B rand Name: Breo Ellipta Send Method: [...] ous pen injector active Medicati on ID: 259803 B rand Name: Trulicit y Send Method: [...] SNOMED-CT Code Diagnosis ICD10 Code Diagnosis Note 1170 ANDREW ALEJANDRO MD Allergy [address] [place] [address], ite [address] [place] [address] ALONA JAMES [address] 03/30/2024 13:29:57 03/30/2024 15:45:29 Perennial allergic rhinitis [id number] J30.89 2261 LESA BRINK, [facility] Allergy [address] [place] [address],[place] [address] [place] [address] 04/08/2024 12:39:27 04/08/2024 15:21:01 Perennial allergic rhinitis [id number] J30.89 3805 LESA BRINK [facility] Allergy [address] [place] [address],[place] [address] [place] [address] 04/20/2024 13:25:00 04/20/2024 15:25:45 Perennial allergic rhinitis [id number] J30.89 4947 LESA BRINK, [facility] Allergy [address] [place] [address],[place] [address] [place] [address] 04/28/2024 14:04:28 04/28/2024 15:40:21 Perennial allergic rhinitis [id number] J30.89 5878 [facility] Allergy [address] [place] [address] [address] [place] [address] 05/05/2024 12:11:55 05/05/2024 13:31:24 Perennial allergic rhinitis [id number] J30.89 55693 [facility], [facility] Allergy [address] [place] [address], [address] [place] [address] 06/15/2024 13:51:37 06/15/2024 15:10:46 Perennial allergic rhinitis [id number] J30.89 61215 [facility] Allergy [address] [place] [address],[address] [place] [address] 06/23/2024 13:05:12 06/23/2024 15:14:31 Perennial allergic rhinitis [id number] J30.89 81854 IMAN SANTOS RN Allergy [address] [place] [address],[address] [place] [address] 07/06/2024 13:08:13 07/06/2024 14:15:45 Perennial allergic rhinitis [id number] J30.89 38536 [facility] Allergy [address] [place] [address],[address] [place] [address] 07/21/2024 10:07:04 07/21/2024 11:35:26 Perennial allergic rhinitis [id number] J30.89 93066 LESA BRINK, A Allergy 100 [facility],[address] [place] [address] 07/29/2024 13:19:08 07/29/2024 13:36:43 Perennial allergic rhinitis [id number] J30.89 50210 MECHE MASTERSON A Allergy 100 [facility],[address] [facility] [place] [address] 09/07/2024 12:39:33 09/07/2024 15:27:20 Perennial allergic rhinitis 117487582 J30.89 66846 MECHE MASTERSON A Allergy 100 [facility],[address] [place] [address] 09/21/2024 10:30:22 09/21/2024 10:55:14 Perennial allergic rhinitis 405990529 J30.89 Health Concerns Section Related Observation LastModified by Organization Detai ls LastModified Time None Recorded Concern Status LastModified by Organization Details LastModified Time None Recorded Advance Directives Directive None Recorded Payers Encounter Date Sequence Insurance Name Policy Number Policy Franks Covered Member ID Franks Member ID Guarantor Name 07/06/2024 1 [place] [employer] Naa Pedersen [id number] Naa Pedersen 07/06/2024 2 [place] [facility]ersen [id number] Naa Pedersen 07/21/2024 1 [place] [employer] Naa Pedersen [id number] Naa Pedersen 07/21/2024 2 [place] Pedersen [id number] Naa Pedersen 07/29/2024 1 [place] [employer] Naa Pedersen [id number] Naa Pedersen 07/29/2024 2 [place] Pedersen [id number] Naa Pedersen 09/07/2024 1 [place] [employer] Naa Pedersen [id number] Naa Pedersen 09/07/2024 2 [place] [facility] Naa Pedersen [id number] Naa Pedersen 09/21/2024 1 [place] [employer] Naa Pedersen [id number] Naa Pedersen 09/21/2024 2 [place] [facility] Naa Pedersen [id number] Naa Pedersen OBGyn Episode No OBEpisode recorded.
== END 2024-11-14 14:42 | disposition home or self-care (01) ==
PROVIDERS: PCP Internal Medicine; Visit Provider Anesthesiology
DX: M96.1 Postlaminectomy syndrome, not elsewhere classified (principal); M16.11 Unilateral primary osteoarthritis, right hip; G89.4 Chronic pain syndrome
CPT/HCPCS: 99213

== ENCOUNTER 2025-01-09 10:51 | Outpatient (AMB) | payer MEDICARE, MEDICAID, SELFPAY ==
--- NOTE | 2025-01-09 10:54 | A.OFFVIS_ITS ---
Vital Signs 01/09/25 10:56 Height 5 ft 6 in Weight 220 lb 7.396 oz BMI 35.6 BP 151/77 H Blood Pressure Location Lt radial Position Sitting Pulse 94 Pulse Source Pulse Oximeter Intake Visit Reasons: RUQ pain/Emilie's PT Intake Note: Naa presents in the office as a RUQ pain follow up. CC: usually sees Emilie Jean. She states that she is still having the pains in her RUQ. She states that she is not having any ireegular bowel movements. 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 Seen with the assistance of Da SAGE for romanian interpretation. Accompanied by grand daughter. Here for R sided pain that started almost a month ago. Not assoc with change in appetite, N/V. There all the time per her report. Sometimes notices it more with certain positions such as bending down or laying down in opposite direction. Pain has been bothering enough to seek pain management consultation. Recent chest CT shows possible cirrhosis for which she made this appt. Pt has had known fatty liver. Most recent liver imagin07/12/24: US Abd 1. There is hepatomegaly. 2. There is generalized increase in hepatic echotexture, consistent with fatty infiltration or hepatocellular disease. Please correlate clinically. No focal hepatic mass or intrahepatic biliary dilatation is seen. 3. Technically limited ultrasound examination of the pancreas and abdominal great vessels. SHe does not drink. No current or past drug use. No fam hx of liver disease. Has known DM and HLD - suboptimally controlled based on available labs. BMI 35. CRC screening: Cologuard 09/2024 - NEGATIVE. [facility] Medical History Periumbilical abdominal pain EDWIN on CPAP Chronic restrictive lung disease Chronic allergic rhinitis Asthma Other and unspecified hyperlipidemia Essential hypertension Type 2 diabetes mellitus with unspecified complications Atherosclerotic cardiovascular disease Surgical History History of esophagogastroduodenoscopy (EGD) Hx of colonoscopy Family History Mother HTN (hypertension) Heart disease Asthma Maternal Aunt Breast cancer Maternal Aunt Tumor Maternal Aunt Cancer Social History Household Members: Spouse and Family Household Members Other:: 4 household members Housing: Apartment Do you presently have visiting nurse or other home services: No Alcohol intake: never Patient Tobacco Use Status: Never used Tobacco service: No Review of Systems Const All systems reviewed & are unremarkable except as noted in HPI and below Physical Exam Vital Signs: Last Vital Signs Pulse 94 01/09/25 10:56 BP 151/77 H 01/09/25 10:56 BMI result Body Mass Index 35.6 appears older than stated age Nonicteric Abdomen soft, RUQ tenderness, palpable liver edge, diastasis recti Alert and oriented x3, normal gait Palmar erythema, spider angioma Assessment & Plan Assessment & Plan (1) Elevated LFTs: Code(s): R79.89 - Other specified abnormal findings of blood chemistry Category: Medical (2) Abnormal liver diagnostic imaging: Code(s): R93.2 - Abnormal findings on diagnostic imaging of liver and biliary tract Category: Medical (3) Davis's esophagus determined by biopsy: Comment: 01/2020 EGD SSBE not visualized but evident on biopsy, repeat in 2021 Code(s): K22.70 - Davis's esophagus without dysplasia Category: Medical (4) Colon cancer screening: Code(s): Z12.11 - Encounter for screening for malignant neoplasm of colon Category: Medical Plan 1. Elevated LFTs ? cirrhosis Reviewed with the pt that based on liver appearance on CT chest and stigmata of chronic liver disease on exam, quite suspicious for progression of JUSTIN to cirrhosis. However will need dedicated imaging. Since also experiencing new onse t RUQ pain, will elect for MRI abd liver protocol to r/o liver mass. Work up for chronic liver disease also ordered. Plan: - Labs as below - MRI liver protocol - Good control of metabolic risk factors advised. 2. SSBE Overdue for surveillance. From workloads - appears pt did not respond to office call/letter to schedule this. Deferred for now. Will review at next visit depending on liver w/up - may need variceal screening as well (although platelets normal) 3. CRC screening Cologuard neg 2023. Next CRC screening due 2026. Follow up 2 months Orders: Orders Alpha 1 Anti-trypsin Today K74.60 - Unspecified cirrhosis of liver Comprehensive Met. Panel Today K74.60 - Unspecified cirrhosis of liver Ferritin Today K74.60 - Unspecified cirrhosis of liver Gamma Glutamyl Transpeptidase Today K74.60 - Unspecified cirrhosis of liver Hemoglobin A1c Today K74.60 - Unspecified cirrhosis of liver Hepatitis A IgG Today K74.60 - Unspecified cirrhosis of liver Hepatitis B Surface Antibody Today K74.60 - Unspecified cirrhosis of liver Hepatitis C Antibody Today K74.60 - Unspecified cirrhosis of liver Immunoglobulin A Today K74.60 - Unspecified cirrhosis of liver Lipid Panel Today K74.60 - Unspecified cirrhosis of liver Liver Kidney Microsomal Ab Today K74.60 - Unspecified cirrhosis of liver Prothrombin Time INR Today K74.60 - Unspecified cirrhosis of liver MR abdomen wo/w con Today K74.60 - Unspecified cirrhosis of liver HCV RNA QN PROG TO GENOTYPE Today K74.60 - Unspecified cirrhosis of liver Alpha Fetoprotein Today K74.60 - Unspecified cirrhosis of liver [place] Reflex Titer and Pattern Today K74.60 - Unspecified cirrhosis of liver Ceruloplasmin Today K74.60 - Unspecified cirrhosis of liver Complete Blood Count no Diff Today K74.60 - Unspecified cirrhosis of liver Hepatitis B Core Antibody Today K74.60 - Unspecified cirrhosis of liver Hepatitis B Surface Antigen Today K74.60 - Unspecified cirrhosis of liver HIV Ab/Ag Today K74.60 - Unspecified cirrhosis of liver Immunoglobulin G Today K74.60 - Unspecified cirrhosis of liver IRON PROFILE Today K74.60 - Unspecified cirrhosis of liver Mitochondrial Antibody Today K74.60 - Unspecified cirrhosis of liver Phosphatidylethanol, Blood Today K74.60 - Unspecified cirrhosis of liver Smooth Muscle Antibody Today K74.60 - Unspecified cirrhosis of liver Transglutaminase IgA Today K74.60 - Unspecified cirrhosis of liver Coding Level of Care Code Est Pt Level 4 (31871) Complex EM visit Add On G2211 Diagnoses Elevated LFTs R79.89 Abnormal liver diagnostic imaging R93.2 Davis's esophagus determined by biopsy K22.70 Colon cancer screening Z12.11
[2025-01-09 10:56] VITALS: BP 151/77; PULSE 94; BMI 35.6
--- OUTSIDE RECORDS SUMMARY | 2025-01-09 12:49 | XMS_ITS | Encounter Summary ---
Author Organization [facility] Address [address] [facility] 7[address] [place] [address] Care Team Providers Care Blacktop Spreader Name Role Phone Renan Lawson MD Primary Care Provide r Edilberto Barahona PharmD Unavailable [phone] Richelle Albarado PharmD Unavailable [phone] Encounter Details Date Type Department Care Team ([facility] Contact Info) Description 01/13/2023 Abstract [facility] MEDICINE [address] [place], [place] [id number] Renan Lawson MD [address] [place] [address] Social History Tobacco Use Types Packs/Day Years Used Date Smoking Tobacco: Never Smokeless Tobacco: Never Alcohol Use Standard Drinks/Week Comments Never 0 (1 standard drink = 0.6 oz pur e alcohol) Depression Answer Date Recorded Patient Health Questionnaire-9 Score 0 12/02/2022 Depression Answer Date Recorded Patient Health Questionnaire-2 Score 0 12/02/2022 Comments Unknown Sex and Gender Information Value Date Recorded Sex Assigned at Female 09/08/2022 10:14 AM EDT Legal Sex Female 10:14 AM EDT Gender Identity Female 09/08/2022 10:14 AM EDT Sexual Orientation Straight 09/08/2022 10 :14 AM EDT COVID-19 Exposure Response Date Recorded In the last 10 days, have yo u been in contact with someone who was confirmed or suspected to have Coronavirus/COVID-19? No / Unsure 01/14/2023 5:07 PM EST documented as of this encounter Plan of Treatment Upcoming Encounters Date Type Department Care Team (Late Contact Info) Description 01/23/2025 2:30 PM EDT Medication Management [facility] [place] [address] Richelle [place] [address] 01/26/2025 1:15 PM EDT Office Visit [facility] [place] [address] [place] [address] documented as of this encounter Visit Diagnoses Not on filedocumented in this encounter Additional Health Concerns Assessment Noted Time PHQ-9 Depression Total Score: 0 12/02/19 10:15 AM EST documented as of this encounter Care Teams Blacktop Spreader Relationship Specialty Start Date End [place] [address] PCP - General Internal Medicine 12/10/21 [place]ber[place] [address] Pharmacist Internal Medicine 07/14/23 10/24/24 [place] [address] Pharmacist Internal Medicine 10/25/24 documented as of this encounter
--- OUTSIDE RECORDS SUMMARY | 2025-01-09 12:50 | XMS_ITS ---
Author Organization [facility] Address [address] [place] [address] Care Team Providers Care Soyfreeze Operator Name Role Phone Deandre Aparicio MD, Renan Primary Care Provide r Eric Wyman Unavailable [phone] REASON FOR VISIT Pt no show Encounters Encounter Location Date Provider Diagnosis [facility] [address] [place] [address] 01/28/2024 Eric Emmanuel PLAN OF TREATMENT No Information
--- OUTSIDE RECORDS SUMMARY | 2025-01-09 12:50 | XMS_ITS | Encounter Summary ---
Author Organization [employer] Address 75 [facility] 7t [place] [address] Care Team Providers Care Horticulture Professor Name Role Phone Renan Lawson MD Primary Care Provide r Edilberto Barahona PharmD Unavailable [phone] Richelle Albarado PharmD Unavailable [phone] Reason for Visit * Reason Comments Med Refill Encounter Details Date Type Department Care Team ([facility] st Contact Info) Description 01/15/2024 Refill [facility] MEDICINE 230 [place], [place] [phone] Shantell Will MD 230 [place], [place] [phone] Fibromyalgia Social History Tobacco Use Types Packs/Day Years Used Date Smoking Tobacco: Every Day Cigarettes Passive Smoke Exposure: Current Smokeless Tobacco: Never Alcohol Use Standard Drinks/Week Comments Never 0 (1 standard drink = 0.6 oz pur e alcohol) Depression Answer Date Recorded Patient Health Questionnaire-9 Score 6 12/29/2023 Patient Health Questionnaire-9 Score 6 12/29/2023 Last PHQ-9: Questionnaire Data Not on file 0 12/29/2023 Housing Stability Answer Date Recorded What is your housing situation today? I have vamshi naylor 12/18/[address] you li ve. Do you have problems with any of the following? None of the above 12/18/2023 Food Insecurity Answer Date Recorded Within the past 12 months, y ou worried that your food would run out before you got money to buy more: Never True 12/18/2023 Within the past 12 months,th e food you bought just didn't last and you didn't have enough money to get more: Never True 07/2024 Transportation Answer Date Recorded In the past 12 months, has l ack of transportation kept you from medical appts, meetings, work or from getting things needed for daily living? No 12/18/2023 Utilities Answer Date Recorded In the past 12 months, has t he electric, gas, oil or water company threatened to shut off services in your home? No 12/18/2023 Depression Answer Date Recorded Patient Health Questionnaire-2 Score 2 12/29/2023 Comments Unknown Sex and Gender Information Value Date Recorded Sex Assigned at Female 09/08/2022 10:14 AM EDT Legal Sex Female 10:14 AM EDT Gender Identity Female 09/08/2022 10:14 AM EDT Sexual Orientation Straight 09/08/2022 10 :14 AM EDT documented as of this encounter Plan of Treatment Upcoming Encounters Date Type Department Care Team (Late st Contact Info) Description 01/23/2025 2:30 PM EDT Medication Management [facility] MEDICINE [address] [place] [address] Richelle Albarado PharmD [address] [place] [address] 01/26/2025 1:15 PM EDT Office Visit [address] [address] Renan Lawson MD [address] [place], [place] [phone] documented as of this encounter Goals Goal Patient Goal Type Associated Problems Recent Progress Patient-Stated? Author Blood Pressure < 140/90 Blood Pressure 138/89(2023 1:24 PM EST) No Edilberto Barahona PharmPercy Blood Pressure < 140/90 Blood Pressure Hypertension 138/89(2023 1:24 PM EST) No Edilberto Barahona PharmD Keep fasting blood glucose between 70 and 130 Result Component No Edilberto Barahona PharmD Keep fasting blood glucose between 70 and 130 Result Component Diabetes mellitus type 2 with neurological manifestations On track( 023 2:54 PM EDT) No Edilberto Barahona PharmD Hemoglobin A1c < 7.0 Result Component Diabetes mellitus type 2 with neurological manifestations 7.8( 4 10:10 AM EDT) No Edilberto Barahona PharmD documented as of this encounter Visit Diagnoses Diagnosis Fibromyalgia Unspecified myalgia and myositis documented in this encounter Additional Health Concerns Assessment Noted Time PHQ-9 Depression Total Score: 6 12/29/19 24 1:36 PM EST documented as of this encounter Care Teams Horticulture Professor Relationship Specialty Start Date End Date Renan Lawson MD [address] [place] [address] PCP - General Internal Medicine 12/10/21 Edilberto Barahona PharmD [address] [place] [address] Pharmacist Internal Medicine 07/14/23 10/24/24 Richelle Albarado PharmD [address] [place] [address] Pharmacist Internal Medicine 10/25/24 documented as of this encounter
--- OUTSIDE RECORDS SUMMARY | 2025-01-09 12:50 | XMS_ITS | Encounter Summary ---
Author Organization [employer] Address 75 [facility] 7t [place] [address] Care Team Providers Care Rental Representative Name Role Phone Renan Lawson MD Primary Care Provide r Richelle Albarado PharmD Unavailable [phone] Reason for Visit * Reason Onset Date Comments Paperwork/Forms 10/31/2024 Encounter Details Date Type Department Care Team ([facility] st Contact Info) Description 10/31/2024 Telephone [facility] MEDICINE 230 [place], [place] [phone] Britni Brink, RN 230 [place] [address] Paperwork/Forms Social History Tobacco Use Types Packs/Day Years Used Date Smoking Tobacco: Former Cigarettes Passive Smoke Exposure: Past Smokeless Tobacco: Never Alcohol Use Standard Drinks/Week [...] Recorded Patient Health Questionnaire-2 Score 2 12/29/2023 Internet Access Answer Date Recorded Internet Access Q1 Yes 07/11/2024 Internet Access Q2 Not on file 07/11/2024 Comments Unknown Sex and Gender Information Value Date Recorded Sex Assigned at Female 09/08/2022 10:14 AM EDT Legal Sex Female 10:14 AM EDT Gender Identity Female 09/08/2022 10:14 AM EDT Sexual Orientation Straight 09/08/2022 10 :14 AM EDT documented as of this encounter Miscellaneous Notes * Telephone Encounter - Britni Brink RN - 12/20/2024 10:20 AM EST Received fax from [employer] requesting records so they can get CGM covered and send to pt. Faxed records as requested. * Telephone Encounter - Britni Brink RN - 12/12/2024 10:47 AM EST Faxed signed packet back as below * Telephone Encounter - Britni Brink RN - 12/06/2024 2:51 PM EST Received form from insurance for CGM. Filled out and placed on PCP's desk. Pending signature. * Telephone Encounter - Britni Brink RN - 11/10/2024 3:11 PM EST Faxed signed form with documentation to pharmacy as below * Telephone Encounter - Britni Brink RN - 10/31/2024 10:19 AM EST Received med B form for pt's diabetes supplies. Filled out and placed on PCP's desk. Pending signature. documented in this encounter Plan of Treatment Upcoming Encounters Date Type Department Care Team (Late st Contact Info) Description 01/23/2025 2:30 PM EDT Medication Management [facility] MEDICINE [address] [place] [address] [phone] Richelle Albarado PharmD [address] [place] [address] [phone] 01/26/2025 1:15 PM EDT Office Visit [facility] MEDICINE [address] [place] [address] [phone] Renan Lawson MD 230 [place], [place] [phone] documented as of this encounter Goals Goal Patient Goal Type Associated Problems Recent Progress Patient-Stated? Author Blood Pressure < 140/90 Blood Pressure 138/89(2023 1:24 PM EST) No Edilberto Barahona PharmD Blood Pressure < 140/90 Blood Pressure Hypertension 138/89(2023 1:24 PM EST) No Edilberto Barahona PharmPercy Keep fasting blood glucose between 70 and 130 Result Component No Edilberto Barahona PharmD Keep fasting blood glucose between 70 and 130 Result Component Diabetes mellitus type 2 with neurological manifestations On track( 023 2:54 PM EDT) No Edilberto Barahona PharmPercy Hemoglobin A1c < 7.0 Result Component Diabetes mellitus type 2 with neurological manifestations 7.8( 10:10 AM EDT) No Edilberto Barahona PharmPercy documented as of this encounter Visit Diagnoses Not on filedocumented in this encounter Additional Health Concerns Assessment Noted Time PHQ-9 Depression Total Score: 6 12/29/19 24 1:36 PM EST documented as of this encounter Care Teams Rental Representative Relationship Specialty Start Date End Date Renan Lawson MD 230 [place] [address] PCP - General Internal Medicine 12/10/21 Richelle Albarado PharmD 230 [place] [address] Pharmacist Internal Medicine 10/25/24 documented as of this encounter
--- OUTSIDE RECORDS SUMMARY | 2025-01-09 12:50 | XMS_ITS | Encounter Summary ---
Author Organization [employer] Address 75 [facility] 7t [place] [address] Care Team Providers Care Procurement Professional Name Role Phone Renan Lawson MD Primary Care Provide r Edilberto Barahona PharmD Unavailable [phone] Richelle Albarado PharmD Unavailable [phone] Reason for Visit * Reason Comments Med Refill Encounter Details Date Type Department Care Team ([facility] Contact Info) Description 02/09/2024 Refill [facility] MEDICINE 230 [place], [place] [phone] Renan Lawson MD 230 [place], [place] [phone] Fibromyalgia Social History Tobacco Use Types Packs/Day [...] your housing situation today? I have vamshi cyndy 12/18/[address] you li [...] Description 01/23/2025 2:30 PM EDT Medication Management [facility] MEDICINE [address] [place] [address] Richelle Albarado PharmD [address] [place] [address] 01/26/2025 1:15 PM EDT Office Visit [facility] MEDICINE [address] [place] [address] Renan Lawson MD [address] [place] [address] documented as of this encounter Goals Goal [...] documented as of this encounter Care Teams Procurement Professional Relationship Specialty Start Date End Date Renan Lawson MD 230 [place] [address] PCP - General Internal Medicine 12/10/21 Edilberto Barahona PharmD 230 [place] [address] Pharmacist Internal Medicine 07/14/23 10/24/24 Richelle Albarado PharmD 230 [place] [address] Pharmacist Internal Medicine 10/25/24 documented as of this encounter
--- OUTSIDE RECORDS SUMMARY | 2025-01-09 12:50 | XMS_ITS | Encounter Summary ---
Author Organization [employer] [facility] Address 75 [facility] 7t [place] [address] Care Team Providers Care Senior Communications Specialist Name Role Phone Renan Lawson MD Primary Care Provide r Edilberto Barahona PharmD Unavailable [phone] Richelle Albarado PharmD Unavailable [phone] Encounter Details Date Type Department Care Team ([facility] Contact Info) Description 12/17/2022 Abstract [facility] MEDICINE 230 [place], [place] [phone] Renan Lawson MD 230 [place] [address] Social History Tobacco Use Types Packs/Day Years [...] suspected to have Coronavirus/COVID-19? No / Unsure 12/02/2022 9:58 AM EST documented as of this encounter Plan of Treatment Upcoming Encounters Date Type Department Care Team (Late Contact Info) Description 01/23/2025 2:30 PM EDT Medication Management [facility] [place] [address] Richelle [place] [address] 01/26/2025 1:15 PM EDT Office Visit [facility] [place] [address] [place] [address] documented as of this encounter Visit Diagnoses Not on filedocumented in this encounter Additional Health Concerns Assessment Noted Time PHQ-9 Depression Total Score: 0 12/02/19 10:15 AM EST documented as of this encounter Care Teams Senior Communications Specialist Relationship Specialty Start Date End Date [place] [address] PCP - General Internal Medicine 12/10/21 [place]ber[place] [address] Pharmacist Internal Medicine 07/14/23 10/24/24 [place] [address] Pharmacist Internal Medicine 10/25/24 documented as of this encounter
--- OUTSIDE RECORDS SUMMARY | 2025-01-09 12:50 | XMS_ITS | Encounter Summary ---
Author Organization [employer] Address 75 [facility] 7t [place] [address] Care Team Providers Care Heart Doctor Name Role Phone Renan Lawson MD Primary Care Provide r Edilberto Barahona PharmD Unavailable [phone] Richelle Albarado PharmD Unavailable [phone] Reason for Visit * Reason Onset Date Comments Appointment Request 08/26/2023 Encounter Details Date Type Department Care Team ([facility] st Contact Info) Description 08/26/2023 Telephone [facility] MEDICINE 230 [place], [place] [phone] Renan Lawson MD 230 [place], [place] [phone] Appointment Request Social History Tobacco Use Types Packs/Day Years Used Date Smoking Tobacco: Never Passive Smoke Exposure: Never Smokeless Tobacco: Never Alcohol Use Standard Drinks/Week Comments Never 0 (1 standard drink = 0.6 oz pur e alcohol) Depression Answer Date Recorded Patient Health Questionnaire-9 Score 0 12/02/2022 Housing Stability Answer Date Recorded What is your housing situation today? I have vamshi sing 08/25/[address] you li ve. Do you have problems with any of the following? None of the above 08/25/2023 Food Insecurity Answer Date Recorded Within the past 12 months, y ou worried that your food would run out before you got money to buy more: Never True 08/25/2023 Within the past 12 months,th e food you bought just didn't last and you didn't have enough money to get more: Never True Transportation Answer Date Recorded In the past 12 months, has l ack of transportation kept you from medical appts, meetings, work or from getting things needed for daily living? No 08/25/2023 Utilities Answer Date Recorded In the past 12 months, has t he electric, gas, oil or water company threatened to shut off services in your home? No 08/25/2023 Depression Answer Date Recorded Patient Health Questionnaire-2 Score 0 12/02/2022 Comments Unknown Sex and Gender Information Value Date Recorded Sex Assigned at Female 09/08/2022 10:14 AM EDT Legal Sex Female 10:14 AM EDT Gender Identity Female 09/08/2022 10:14 AM EDT Sexual Orientation Straight 09/08/2022 10 :14 AM EDT documented as of this encounter Miscellaneous Notes * Telephone Encounter - Meche Resendiz - 08/26/2023 9:58 AM EDT Tc from pt requesting f/u appt. Pt is also requesting a call back on regards results from 08/10/2023. documented in this encounter Plan of Treatment Upcoming Encounters Date Type Department Care Team (Late st Contact Info) Description 01/23/2025 2:30 PM EDT Medication Management [facility] MEDICINE [address] [place] [phone] Richelle Albarado PharmD [address] [place] [address] 01/26/2025 1:15 PM EDT Office Visit [facility] MEDICINE [address] [place] [address] Renan Lawson MD [address] [place] [address] documented as of this encounter Goals Goal [...] 7.8( 10:10 AM EDT) No Edilberto Barahona PharmD documented as of this encounter Visit Diagnoses Not on filedocumented in this encounter Additional Health Concerns Assessment Noted Time PHQ-9 Depression Total Score: 0 12/02/19 23 10:15 AM EST documented as of this encounter Care Teams Heart Doctor Relationship Specialty Start Date End Date Renan Lawson MD 230 [place] [address] PCP - General Internal Medicine 12/10/21 Edilberto Barahona PharmD 230 [place] [address] Pharmacist Internal Medicine 07/14/23 10/24/24 Richelle Albarado PharmD 230 [place] [address] Pharmacist Internal Medicine 10/25/24 documented as of this encounter
--- OUTSIDE RECORDS SUMMARY | 2025-01-09 12:50 | XMS_ITS | Encounter Summary ---
Author Organization [employer] Address 75 [facility] 7t [place] [address] Care Team Providers Care Template Worker Name Role Phone Renan Lawson MD Primary Care Provide r Edilberto Barahona PharmD Unavailable [phone] Richelle Albarado PharmD Unavailable [phone] Reason for Visit * Reason Onset Date Comments Reschedule 05/20/2023 Encounter Details Date Type Department Care Team ([facility] st Contact Info) Description 05/20/2023 Telephone [facility] MEDICINE 230 [place], [place] [phone] Renan Lawson MD 230 [place], [place] [phone] Reschedule Social History Tobacco Use Types Packs/Day Years [...] suspected to have Coronavirus/COVID-19? No / Unsure 05/04/2023 2:48 PM EDT documented as of this encounter Miscellaneous Notes * Telephone Encounter - Olivia Tinajero - 05/20/2023 1:27 PM EDT Tc from pt requesting to r/s 05/19 knee injection appointment. Please contact pt at [phone] (French speaker) documented in this encounter Plan of Treatment Upcoming Encounters Date Type Department Care Team (Late st Contact Info) Description 01/23/2025 2:30 PM EDT Medication Management [facility] MEDICINE [address] [place] [address] Richelle Albarado PharmD [address] [place] [address] 01/26/2025 1:15 PM EDT Office Visit [facility] MEDICINE [address] [place] [address] Renan Lawson MD [address] [place] [address] documented as of this encounter Goals Goal Patient Goal Type Associated Problems Recent Progress Patient-Stated? Author Blood Pressure < 140/90 Blood Pressure 138/89(2023 1:24 PM EST) No Edilberto Barahona PharmPercy Keep fasting blood glucose between 70 and 130 Result Component No Edilberto Barahona PharmD documented as of this encounter Visit Diagnoses Not on filedocumented in this encounter Additional Health Concerns Assessment Noted Time PHQ-9 Depression Total Score: 0 12/02/19 23 10:15 AM EST documented as of this encounter Care Teams Template Worker Relationship Specialty Start Date End Date Renan Lawson MD [address] [place] [address] [phone] PCP - General Internal Medicine 12/10/21 Edilberto Barahona PharmD [address] [place] [address] [phone] Pharmacist Internal Medicine 07/14/23 10/24/24 Richelle Albarado, KyD [address] [place] [address] Pharmacist Internal Medicine 10/25/24 documented as of this encounter
--- OUTSIDE RECORDS SUMMARY | 2025-01-09 12:50 | XMS_ITS | Encounter Summary ---
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
--- OUTSIDE RECORDS SUMMARY | 2025-01-09 12:50 | XMS_ITS | Encounter Summary ---
Author Organization [employer] Address 75 [facility] 7t [place] [address] Care Team Providers Care Senior Applications Analyst Name Role Phone Renan Lawson MD Primary Care Provide r Richelle Albarado PharmD Unavailable [phone] Reason for Visit * Reason Comments Med Refill Encounter Details Date Type Department Care Team ([facility] Contact Info) Description 12/28/[address] [facility] MEDICINE 230 [place], [place] [phone] Renan Lawson MD 230 [place], [place] [phone] Social History Tobacco Use Types Packs/Day Years [...] Description 01/23/2025 2:30 PM EDT Medication Management [facility] MEDICINE [address] [place] [address] Richelle Albarado PharmD [address] [place] [address] 01/26/2025 1:15 PM EDT Office Visit [facility] MEDICINE [address] [place] [address] Renan Lawson MD 230 [place] [address] documented as of this encounter Goals Goal [...] as of this encounter Care Teams Senior Applications Analyst Relationship Specialty Start Date End Date Renan Lawson MD 230 [place] [address] PCP - General Internal Medicine 12/10/21 Richelle Albarado PharmD 230 [place] [address] Pharmacist Internal Medicine 10/25/24 documented as of this encounter
--- OUTSIDE RECORDS SUMMARY | 2025-01-09 12:50 | XMS_ITS | Encounter Summary ---
Author Organization [employer] Address 75 [facility] 7t [place] [address] Care Team Providers Care Zone Supervisor Firearms Name Role Phone Renan Lawson MD Primary Care Provide r Edilberto Barahona PharmD Unavailable [phone] Richelle Albarado PharmD Unavailable [phone] Encounter Details Date Type Department Care Team (Late Contact Info) Description 10/22/2022 Orders Only [facility] [address] [place] [address] Denise Leyva LPN Social History Tobacco Use Types Packs/Day Years Used Date Smoking Tobacco: Never Assessed Comments Unknown Sex and Gender Information Value Date Recorded Sex Assigned at Female 09/08/2022 10:14 AM EDT Legal Sex Female 10:14 AM EDT Gender Identity Female 09/08/2022 10:14 AM EDT Sexual Orientation Straight 09/08/2022 10 :14 AM EDT documented as of this encounter Plan of Treatment Upcoming Encounters Date Type Department Care Team (Late Contact Info) Description 01/23/2025 2:30 PM EDT Medication Management [facility] MEDICINE [address] [place] [phone] Richelle Albarado PharmD 230 [place] [address] 01/26/2025 1:15 PM EDT Office Visit [facility] MEDICINE [address] [place] [address] Renan Lawson MD 230 [place] [address] documented as of this encounter Visit Diagnoses Not on filedocumented in this encounter Care Teams Zone Supervisor Firearms Relationship Specialty Start Date End Date Renan Lawson MD [address] [place] [address] PCP - General Internal Medicine 12/10/21 Edilberto Barahona, KyD [address] [place] [address] Pharmacist Internal Medicine 07/14/23 10/24/24 Richelle Albarado, KyD [address] [place] [address] Pharmacist Internal Medicine 10/25/24 documented as of this encounter
--- OUTSIDE RECORDS SUMMARY | 2025-01-09 12:50 | XMS_ITS | Encounter Summary ---
Author Organization [employer] [facility] Address [address] [facility] 7t [place] [address] Care Team Providers Care Field Geologist Name Role Phone Renan Lawson MD Primary Care Provide r Edilberto Barahona PharmD Unavailable [phone] Richelle Albarado PharmD Unavailable [phone] Reason for Referral * Imaging (Routine) - Closed Specialty Diagnoses / Procedures Referred By Contac t Referred To Contact Radiology Diagnoses Right lower quadrant abdominal pain Procedures US Pelvis Transvaginal Moira Edouard FNP [address] [place] [address] Phone: tel: fax: [address] Phone: tel: fax: Referral ID Status Reason Start Date Expiration Date Visits Re quested Visits Authorized [id number] Closed 08/07/2023 08/06/2024 1 1 Encounter Details Date Type Department Care Team (Late st Contact Info) Description 08/07/2023 Orders Only [facility] [address] [place] [address] Moira Edouard FNP [address] [place] [address] Right lower quadrant abdominal pain (Primary Dx) Social History Tobacco Use Types Packs/Day Years [...] Description 01/23/2025 2:30 PM EDT Medication Management [facility] [address] [place] [address] Richelle Albarado PharmD [address] [place] [address] 01/26/2025 1:15 PM EDT Office Visit [facility] [address] [place] [address] Renan Lawson MD [address] [place], [place] [phone] documented as of this encounter Goals Goal [...] neurological manifestations 7.8( 10:10 AM EDT) No Barahona, Jerril, PharmD documented as of this encounter Procedures Procedure Name Priority Date/Time Associated Diagnosis Comments US PELVIS TRANSVAGINAL Routine 10/07/2023 11:46 AM EST Right lower quadrant abdominal pain documented in this encounter Results * US Pelvis Transvaginal (10/07/2023 11:46 AM EST) Anatomical Region Laterality Modality Pelvis Ultrasound 10/07/2023 11:4 6 AM EST Narrative 10/08/2023 5:03 PM EST ? [facility] ?[address] ?[place] [address] ? Ultrasound Report ? Signed ? Patient: Naa Pedersen ?MR#: [id number] ?? [id number] ? : 1955 ?Acct:[id number] ? Age/Sex: 67 / F ?ADM Date: 10/07/23 ? Loc: HO.US ? Attending Dr: Moira Edouard NP ? Ordering Physician: Moira Edouard NP ?? Date of Service: 10/07/23 ?? Procedure(s): US pelvic and transvaginal ?? Accession Number(s): [id number] ? cc: Moira Eduoard NP; Renan Cabral MD ? EXAMINATION: ? US PELVIS ? CLINICAL INFORMATION: ? Right lower quadrant pain. Postmenopausal. ? COMPARISON: ?? CT abdomen/pelvis 08/10/2023 ? TECHNIQUE: ?? Ultrasound of the pelvis is performed using both transabdominal and ?? transvaginal transducers along with Doppler. Transvaginal imaging is ?? performed due to inadequate visualization transabdominally. ? FINDINGS: ?? Uterus: ?? The uterus is anteverted and retroflexed. The uterus measures 6.0 x 2.4 ?? x 3.5 cm. Uterine echotexture is heterogeneous. The endometrium is not ?? well visualized. A fibroid measures 1.0 x 0.9 x 0.6. ? Adnexa: ?? Both ovaries are visualized. There is no pelvic ascites or fluid ?? collection. ? Right ovary measures 2.1 x 1.9 x 1.3 cm. ? Left ovary measures 1.7 x 0.8 x 0.9 cm. ? US/US pelvic and transvaginal ?? IMPRESSION: ?? Uterine fibroid. ? Dictated By: ?Lynette Underwood MD ? Signed By: ?<Electronically signed by Lynette Underwood MD in OV> ? 10/08/ 1659 ? DD/ 1146 ? TD/TT: ? Confidential Investigator: ? Procedure Note Donotuseinterpreter, Image - 10/08/[address] [address] Ultrasound Report Signed Patient: Naa Pedersen EMR#: [id number] : 6Acct:[id number] Age/Sex: 67 / FADM Date: 10/07/23 Loc: HO.US Attending Dr: Moira Edouard NP Ordering Physician: Moira Edouard NP Date of Service: 10/07/23 Procedure(s): US pelvic and transvaginal Accession Number(s): [id number] cc: Moira Edouard NP; Renan Cabral MD EXAMINATION: US PELVIS CLINICAL INFORMATION: Right lower quadrant pain. Postmenopausal. COMPARISON: CT abdomen/pelvis 08/10/2023 TECHNIQUE: Ultrasound of the pelvis is performed using both transabdominal and transvaginal transducers along with Doppler. Transvaginal imaging is performed due to inadequate visualization transabdominally. FINDINGS: Uterus: The uterus is anteverted and retroflexed. The uterus measures 6.0 x 2.4 x 3.5 cm. Uterine echotexture is heterogeneous. The endometrium is not well visualized. A fibroid measures 1.0 x 0.9 x 0.6. Adnexa: Both ovaries are visualized. There is no pelvic ascites or fluid collection. Right ovary measures 2.1 x 1.9 x 1.3 cm. Left ovary measures 1.7 x 0.8 x 0.9 cm. US/US pelvic and transvaginal IMPRESSION: Uterine fibroid. Dictated By: Lynette Underwood MD Signed By: <Electronically signed by Lynette Underwood MD in OV> 10/08/23 1659 DD/ 1146 TD/TT: Confidential Investigator: us Moira Edouard MICA PATCHER IMG US PROCEDURES Final Result documented in this encounter Visit Diagnoses Diagnosis Right lower quadrant abdominal pain- Primary documented in this encounter Additional Health Concerns Assessment Noted Time PHQ-9 Depression Total Score: 0 12/02/19 10:15 AM EST documented as of this encounter Care Teams Field Geologist Relationship Specialty Start Date End Date Renan Lawson MD [address] [place] [address] PCP - General Internal Medicine 12/10/21 Edilberto Barahona PharmD [address] [place] [address] Pharmacist Internal Medicine 07/14/23 10/24/24 Richelle Albarado PharmD [address] [place] [address] Pharmacist Internal Medicine 10/25/24 documented as of this encounter
--- OUTSIDE RECORDS SUMMARY | 2025-01-09 12:50 | XMS_ITS | Encounter Summary ---
Author Organization [employer] Address [address] [facility] 7t [place] [address] Care Team Providers Care House Wirer Name Role Phone Renan Lawson MD Primary Care Provide r Richelle Albarado PharmD Unavailable [phone] Reason for Visit * Reason Comments Med Refill Encounter Details Date Type Department Care Team ([facility] st Contact Info) Description 12/29/2024 Refill [facility] [address] [place], [place] [phone] Renan Lawson MD [address] [place] [address] Fibromyalgia Social History Tobacco Use Types Packs/Day [...] is your housing situation today? I have vamshidonita naylor 12/18/[address] you [...] Description 01/23/2025 2:30 PM EDT Medication Management [facility] [address] [place] [address] Richelle Albarado PharmD [address] [place] [address] 01/26/2025 1:15 PM EDT Office Visit [facility] [address] [place] [address] Renan Lawson MD [address] [place] [address] documented as of this encounter Goals Goal [...] track( 023 2:54 PM EDT) No Edilberto Barahona, Toni Hemoglobin A1c < 7.0 Result Component Diabetes mellitus type 2 with neurological manifestations 7.8( 4 10:10 AM EDT) No Edilberto Barahona PharmD documented as of this encounter Visit Diagnoses Diagnosis Fibromyalgia Unspecified myalgia and myositis documented in this encounter Additional Health Concerns Assessment Noted Time PHQ-9 Depression Total Score: 6 12/29/19 24 1:36 PM EST documented as of this encounter Care Teams House Wirer Relationship Specialty Start Date End Date Renan Lawson MD [address] [place] [address] PCP - General Internal Medicine 12/10/21 Richelle Albarado PharmD [address] [place] [address] Pharmacist Internal Medicine 10/25/24 documented as of this encounter
--- OUTSIDE RECORDS SUMMARY | 2025-01-09 12:50 | XMS_ITS | Patient Health Record ---
Author Organization [facility] Address [address] [place] [address] Care Team Providers Care Family Day Carer Name Role Phone Deandre Aparicio MD, Renan Primary Care Provide r Eric Wyman Unavailable [phone] REASON FOR REFERRAL No Information SOCIAL HISTORY Sex Assigned At : Social History Observation Description Sex Assigned At Unknown Encounters Encounter Location Date Provider Diagnosis [facility] [address] [place] [address] 01/28/2024 Eric Emmanuel [facility] [address] [place] [address] 01/28/2024 Eric Emmanuel PLAN OF TREATMENT No Information Insurance Providers Payer Name Payer Address Payer Phone Subscriber Number Group Number Insured Name Patient Relationship to Insured Coverage Start Date Coverage End Date [place] [address] [place] [id number] [id number] BOW[employer]LE DRAKE Self - patient is the insured MEDICAID OF [facility] [address] [place] [address] [phone] [id number] [employer] Self - patient is the insured
--- OUTSIDE RECORDS SUMMARY | 2025-01-09 12:50 | XMS_ITS ---
Author Organization [facility] Address [address] [place] [address] Care Team Providers Care Lithograph Press Operator Tinware Name Role Phone Deandre Aparicio MD, Renan Primary Care Provide r Eric Wyman Unavailable [phone] REASON FOR VISIT Patient presents today for a COLON SCREENING Encounters Encounter Location Date Provider Diagnosis [facility] [address] [place] [address] 01/28/2024 Eric Emmanuel PLAN OF TREATMENT No Information
--- OUTSIDE RECORDS SUMMARY | 2025-01-09 12:50 | XMS_ITS | Encounter Summary ---
Author Organization [employer] [facility] Address [address] [facility] 7t [place] [address] Care Team Providers Care Building Mover Name Role Phone Renan Lawson MD Primary Care Provide r Edilberto Barahona PharmD Unavailable [phone] Richelle Albarado PharmD Unavailable [phone] Encounter Details Date Type Department Care Team ([facility] Contact Info) Description 11/14/2022 Telephone [facility] [address] [place], [place] [phone] Renan Lawson MD [address] [place] [address] Social History Tobacco Use Types Packs/Day Years [...] suspected to have Coronavirus/COVID-19? No / Unsure 10/30/2022 10:54 AM EST documented as of this encounter Plan of Treatment Upcoming Encounters Date Type Department Care Team ([facility] Contact Info) Description 01/23/2025 2:30 PM EDT Medication Management [facility] [address] [place] [address] Richelle Albarado PharmD [address] [place] [address] 01/26/2025 1:15 PM EDT Office Visit [facility] [address] [place] [address] [place], [place] [phone] Renan Lawson MD [facility] [place] [address] documented as of this encounter Visit Diagnoses Not on filedocumented in this encounter Care Teams Building Mover Relationship Specialty Start Date End Date Renan Lawson MD [facility] [place], [place] [phone] PCP - General Internal Medicine 12/10/21 Edilberto Barahona, KyD [address] [place] [address] Pharmacist Internal Medicine 07/14/23 10/24/24 Richelle Albarado, KyD [address] [place] [address] Pharmacist Internal Medicine 10/25/24 documented as of this encounter
--- OUTSIDE RECORDS SUMMARY | 2025-01-09 12:50 | XMS_ITS | Encounter Summary ---
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); Type 2 diabetes mellitus without complication, without long-term current use of insulin (CMS/HCC) Social History Tobacco Use Types Packs/Day [...] 2:30 PM EDT Medication Management [facility] [address] [place] [address] Richelle Albarado PharmD [address] [place] [address] 01/26/2025 1:15 PM EDT Office Visit [facility] [address] [place] [address] Renan Lawson MD [address] [place] [address] documented as of this encounter Goals Goal [...] as of this encounter Visit Diagnoses Diagnosis Primary hypertension Unspecified essential hypertension 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
--- OUTSIDE RECORDS SUMMARY | 2025-01-09 12:51 | XMS_ITS | Encounter Summary ---
Author Organization [employer] Address [address] [facility] 7t [place] [address] Care Team Providers Care Curing Press Maintainer Name Role Phone Renan Lawson MD Primary Care Provide r Edilberto Barahona PharmD Unavailable [phone] Richelle Albarado PharmD Unavailable [phone] Reason for Visit * Reason Comments Med Refill Encounter Details Date Type Department Care Team ([facility] Contact Info) Description 08/26/2024 Refill [facility] [address] [place] [address] Renan Lawson MD [address] [place] [address] Social History Tobacco Use Types Packs/Day Years Used Date Smoking Tobacco: Former Cigarettes Passive Smoke Exposure: Current Smokeless Tobacco: [...] EDT Medication Management [facility] [address] [place] [address] Richelle Albarado PharmD [address] [place] [address] 01/26/2025 1:15 PM EDT Office Visit [facility] [address] [place] [address] Renan Lawson MD [address] [place] [address] documented as of this encounter Goals Goal Patient Goal Type Associated Problems Recent Progress Patient-Stated? Author Blood Pressure < 140/90 Blood Pressure 138/89(2023 1:24 PM EST) No Edilberto Barahona PharmD Blood Pressure < 140/90 Blood Pressure Hypertension 138/89(2023 1:24 PM EST) No Edilberto Barahona PharmPercy Keep fasting blood glucose between 70 and 130 Result Component No Edilberto Barahona PharmPercy Keep fasting blood [...] documented as of this encounter Care Teams Curing Press Maintainer Relationship Specialty Start Date End Date Renan Lawson MD [address] [place] [address] PCP - General Internal Medicine 12/10/21 Edilberto Barahona PharmD [address] [place] [address] Pharmacist Internal Medicine 07/14/23 10/24/24 Richelle Albarado PharmD [address] [place] [address] Pharmacist Internal Medicine 10/25/24 documented as of this encounter
--- OUTSIDE RECORDS SUMMARY | 2025-01-09 12:51 | XMS_ITS | Clinical Summary ---
Author Organization [employer] Address [address] [place] [address] Care Team Providers Care Rougher For [employer] Name Role Phone Renan Lawson MD Primary Care Provide r Richelle Albarado PharmD Unavailable [phone] Allergies Active Allergy Reactions Criticality Noted Date Comments Bee Venom Angioedema,Anaphylaxis High 01/10/2016 Morphine 06/10/2012 Other reaction(s): RASH ??ITCH Other reaction(s): RASH Medications albuterol (2.5 MG/3ML) 0.083% nebulizer solution inhale 3 milliliter by nebulization route every 4 hours as needed Active albuterol (Ventolin HFA) 108 (90 Base) MCG/ACT inhaler inhale 2 puff by inhalation route four times daily as needed for symptoms Active amitriptyline (Elavil) 100 MG tablet Take 2 tablets by mouth at bed time. Active butalbital-aceta minophen-caffein e 50-325-40 MG tablet TOME EVELIO TABLETA CADA OCHO HORAS CUANDO SEA NECESARIO FOR 30 DAYS Active capsaicin (Capzasin-HP) 0.1 % cream apply twice daily to affected area Active EPINEPHrine (EpiPen 2-Srini) 0.3 MG/0.3ML injection syringe Inject as directed on package as needed for anaphylaxis Active mirtazapine (Remeron) 45 MG tablet Take 1 tablet by mouth at bed time. Active nitroglycerin (Nitrostat) 0.[address] 1 tablet under the tongue. Active sucralfate (Carafate) 1 g tablet take 2 tablets (2 grams) by oral route once daily before a meal Active topiramate (Topamax) 100 MG tablet take 1 tablet by mouth every morning and 2 tablets (200 mg) daily at bedtime Active traZODone (Desyrel) 100 MG tablet take 1 tablet by oral route daily at bedtime Active Blood Pressure Monitor kit Use to check blood pressure daily 1 kit 023 Active Praluent 75 MG/ML injection PLEASE SEE ATTACHED FOR DETAILED DIRECTIONS Active Breztri Aerosphere 160-9-4.8 MCG/ACT aerosol 023 Active clonazePAM (KlonoPIN) 1 MG tablet 023 Active omeprazole (PriLOSEC) [address] capsuleIndicatio ns:Davis's esophagus without dysplasia TAKE 1 CAPSULE BY MOUTH TWICE DAILY IN THE MORNING AND AT BEDTIME 60 capsule 4 023 Active venlafaxine XR (Effexor XR) 37.5 MG 24 hr capsule TOME EVELIO C PSULA TODOS LOS D EN LA ALONA GALEANO 023 Active metoclopramide (Reglan) 5 MG tablet Take 5 mg by mouth 3 times daily. 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 RINSE MOUTH AFTER USING.. Active Azelastine HCl 137 MCG/SPRAY solution 2 spray into both nostrils Active Aspirin Low Dose 81 MG EC tabletIndication s: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) TAKE 1 TABLET BY MOUTH EVERY DAY AT BEDTIME 90 tablet 1 024 Active estradiol (Estrace) 0.1 MG/GM vaginal cream APPLY PEA-SIZED AMOUNT TO URETHRA DAILY FOR 1 MONTH. AFTER 1 MONTH APPLY 3 TIMES A WEEK 024 Active ketorolac (Acular) 0.5 % ophthalmic solution Use as directed Active Senna-Time 8.6 MG tablet Take 2 tablets by mouth at bedtime. Active Alcohol Swabs ([facility] Prep) 70 % pads Apply 1 Swab topically if needed each day (for injection or CGM placement). 100 each Active Dulaglutide (Trulicity) 1.5 MG/0.5ML solution auto-injectorInd ications:Diabete s mellitus type 2 with neurological manifestations (CMS/HCC) Inject 0.5 mL (1.5 mg) under the skin 1 (one) time per week. 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 Apply 1 sensor as directed every 14 days for CGM. 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 Use daily as directed for CGM 1 each 024 Active amLODIPine (Norvasc) 10 MG tabletIndication s:Primary hypertension TAKE 1 TABLET BY MOUTH EVERY DAY IN THE MORNING 90 tablet 1 025 Active atorvastatin (Lipitor) 80 MG tabletIndication s:Mixed hyperlipidemia TAKE 1 TABLET BY MOUTH EVERY DAY AT BEDTIME 90 tablet 1 025 Active cetirizine (ZyrTEC) 10 MG tabletIndication s:Seasonal allergies TAKE 1 TABLET BY MOUTH EVERY DAY AT BEDTIME 90 tablet 1 025 Active ezetimibe (Zetia) 10 MG tabletIndication s:Mixed hyperlipidemia TAKE 1 TABLET BY MOUTH EVERY MORNING 90 tablet 1 025 Active lisinopril 10 MG tabletIndication s:Primary hypertension TAKE 1 TABLET BY MOUTH EVERY DAY 30 tablet 2 025 Active metoprolol succinate XL (Toprol-XL) 50 MG 24 hr tabletIndication s:Primary hypertension TAKE 1 TABLET BY MOUTH EVERY MORNING DO NOT BREAK, CRUSH, DISSOLVE OR CHEW 90 tablet 1 025 Active cyanocobalamin (Vitamin B-12) 1000 MCG tabletIndication s: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) TAKE 1 TABLET BY MOUTH EVERY MORNING 90 tablet 1 025 Active metFORMIN XR (Glucophage-XR) 500 MG 24 hr tabletIndication s:Type 2 diabetes mellitus without complication, without long-term current use of insulin (CMS/HCC) TAKE 2 TABLETS BY MOUTH TWICE DAILY IN THE MORNING AND IN THE EVENING 360 tablet 1 025 Active fluticasone (Flonase) 50 MCG/ACT nasal spray USE 2 SPRAYS IN EACH NOSTRIL ONCE DAILY 48 g 1 025 Active pregabalin (Lyrica) 200 MG capsuleIndicatio ns:Fibromyalgia TAKE 1 CAPSULE BY MOUTH TWICE DAILY IN THE MORNING AND IN THE EVENING 60 capsule 025 Active Continuous Blood Gluc Sensor (FreeStyle Richard 2 Sensor) misc 1 each every 14 (fourteen) days. 2 each 023 2024 Discontinued(M ed list cleanup (will not trigger notification to Pharmacy)) Continuous Blood Gluc Rf Test Technician (FreeStyle Richard 2 [place]) device 1 each every 8 (eight) hours. 1 each 023 2024 Discontinued(M ed list cleanup (will not trigger notification to Pharmacy)) glucose blood test strip 1 each by Other route 4 times daily. 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) TAKE 1 TABLET BY MOUTH EVERY DAY IN THE MORNING 90 tablet 1 024 2024 Discontinued metoprolol succinate XL (Toprol-XL) 50 MG 24 hr tabletIndication s:Primary hypertension TAKE 1 TABLET BY MOUTH EVERY MORNING DO NOT BREAK, CRUSH, DISSOLVE OR CHEW 90 tablet 1 024 2024 Discontinued fluticasone (Flonase) 50 MCG/ACT nasal spray INSTILL 2 SPRAYS IN EACH NOSTRIL ONCE DAILY 48 g 1 024 2024 Discontinued metFORMIN XR (Glucophage-XR) 500 MG 24 hr tabletIndication s:Type 2 diabetes mellitus without complication, without long-term current use of insulin (CMS/HCC) TAKE 2 TABLETS BY MOUTH TWICE DAILY IN THE MORNING AND IN THE EVENING 360 tablet 1 024 2024 Discontinued FREESTYLE LITE test stripIndications :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) USE DIRECTED TO TEST BLOOD SUGAR THREE TIMES DAILY 100 each 3 024 2024 Discontinued(M ed list cleanup (will not trigger notification to Pharmacy)) pregabalin (Lyrica) 200 MG capsuleIndicatio ns:Fibromyalgia TAKE 1 CAPSULE BY MOUTH TWICE DAILY IN THE MORNING AND IN THE EVENING 60 capsule 025 2024 Discontinued Active Problems Problem Noted Date Diagnosed Date Rib pain on right side 07/07/2024 Assessment & Plan (09/29/2024 1:32 PM EST): Pt with c/o persistent pain right rib cage in the absence of any trauma On exam, there is no redness, Plain films right rib cage showed non displaced fractures, pt requesting to be seen at the pain clinic since her pain has not improved Assessment & Plan (07/07/2024 1:37 PM EDT): Pt with c/o pain right rib cage in the absence of any trauma On exam, there is no redness, Etiology ? Obtain plain films right rib cage History of recurrent UTIs 02/11/2024 Assessment & Plan (09/29/2024 12:56 PM EST): Evaluated by Urology, last seen 09/27/2024 Assessment & Plan (04/19/2024 2:22 PM EDT): Rx Macrobid x 7d, based on last Urine cx, order culture again. D/w patient re importance of DM control, fu with PCP I will refer to Urology for further evaluation of recurrent UTIs, evaluate simple renal cysts. Assessment & Plan (03/29/2024 8:08 PM EDT): Rx bactrim + Pyridium Order renal US due to recurrent UTIs + hx small left kidney stone on abd/pelvic CT scan on 08/2023 Advised re tight control of DM Assessment & Plan (02/11/2024 2:44 PM EDT): Drink plenty of water do not hold urine Macrobid prescribed In light patient is very symptomatic I prescribed 2 days of pyridium UA and culture done Patient will be contacted if culture shows resistance Skin lesions 12/29/2023 Assessment & Plan (12/29/2023 1:20 PM EST): Pt with multiple hyperpigmented skin lesions underneath right breast, recently complaining that they have become pruritic. Plan: Derm referral Right lower quadrant abdominal pain 09/15/2023 Assessment & Plan (09/29/2024 2:35 PM EST): Pt with c/o right sided RUQ pain As part of her work up she had a CT of abdomen and pelvis done 08/10/2023 that showed: The visualized lung bases are unremarkable.The noncontrast liver is normal in size and contour. No biliary ductal dilatation is present. The gallbladder is contracted. No ductal dilatation. Spleen: Not enlarged.No adrenal mass. The kidneys are symmetric in size. Nonobstructing lower pole left renal calculi. 8.2 x 8.0 cm mid to lower pole right renal cyst. No further imaging follow-up is needed. No hydronephrosis. Small and large bowel loops are of normal caliber. No small bowel obstruction. Appendix is within normal limits. No significant hernia is appreciated. No bulky abdominal or pelvic lymphadenopathy. Normal caliber abdominal aorta.The uterus and adnexa are unremarkable. No destructive bone lesions. IMPRESSION: No acute abnormality in the abdomen or pelvis. Given persistent c/o RUQ Pain, had an Abdominal US 07/2024 that showed: IMPRESSION: hepatomegaly.generalized increase in hepatic echotexture, consistent with fatty infiltration or hepatocellular disease. No focal hepatic mass or intrahepatic biliary dilatation is seen. She was also seen by GI 07/13/2024 Assessment & Plan (12/29/2023 1:11 PM EST): Pt evaluated by Zaria Troncoso NP for this, finally had a CT of abdomen and pelvis done 08/10/2023 that showed: LUNG BASES: The visualized lung bases are unremarkable. LIVER, GALLBLADDER, AND BILIARY TREE: The noncontrast liver is normal in size and contour. No biliary ductal dilatation is present. The gallbladder is contracted. PANCREAS: No ductal dilatation. SPLEEN: Not enlarged. ADRENAL GLANDS: No adrenal mass. KIDNEYS AND URETERS: The kidneys are symmetric in size. Nonobstructing lower pole left renal calculi. 8.2 x 8.0 cm mid to lower pole right renal cyst. No further imaging follow-up is needed. No hydronephrosis. BLADDER: Decompressed. GASTROINTESTINAL TRACT: Small and large bowel loops are of normal caliber. No small bowel obstruction. Appendix is within normal limits. ABDOMINAL WALL: No significant hernia is appreciated. LYMPH NODES: No bulky abdominal or pelvic lymphadenopathy. VASCULAR: Normal caliber abdominal aorta. PELVIC VISCERA: The uterus and adnexa are unremarkable. OSSEOUS STRUCTURES: No destructive bone lesions. IMPRESSION: No acute abnormality in the abdomen or pelvis. Assessment & Plan (09/15/2023 3:35 PM EST): Pt evaluated by Zaria Troncoso NP for this, finally had a CT of abdomen and pelvis done 08/10/2023 that showed: LUNG BASES: The visualized lung bases are unremarkable. LIVER, GALLBLADDER, AND BILIARY TREE: The noncontrast liver is normal in size and contour. No biliary ductal dilatation is present. The gallbladder is contracted. PANCREAS: No ductal dilatation. SPLEEN: Not enlarged. ADRENAL GLANDS: No adrenal mass. KIDNEYS AND URETERS: The kidneys are symmetric in size. Nonobstructing lower pole left renal calculi. 8.2 x 8.0 cm mid to lower pole right renal cyst. No further imaging follow-up is needed. No hydronephrosis. BLADDER: Decompressed. GASTROINTESTINAL TRACT: Small and large bowel loops are of normal caliber. No small bowel obstruction. Appendix is within normal limits. ABDOMINAL WALL: No significant hernia is appreciated. LYMPH NODES: No bulky abdominal or pelvic lymphadenopathy. VASCULAR: Normal caliber abdominal aorta. PELVIC VISCERA: The uterus and adnexa are unremarkable. OSSEOUS STRUCTURES: No destructive bone lesions. IMPRESSION: No acute abnormality in the abdomen or pelvis. Pt tells me that she has an upcoming appointment for the Pelvic US previously ordered towards the end of the month Right hip pain 09/15/2023 Assessment & Plan (12/29/2023 12:51 PM EST): Pt with previous c/o right sided hip pain for months causing her to have difficulty ambulating, Plain films right hip showed: Right hip arthritis similar to previous exam. Patient was seen by Ortho for evaluation 10/21/2023 referred for PT, seen again by Dr Roberts after she declined to continue with PT, she received a steroid injection Assessment & Plan (09/15/2023 3:39 PM EST): Pt with c/o right sided hip pain for months causing her to have difficulty ambulating, On exam there is concern for hip pathology. Plain films right hip showed: Right hip arthritis similar to previous exam. Plan: Will refer to Ortho for evaluation Type 2 diabetes mellitus wit hout complication, with long-term current use of insulin 06/12/2023 Overview (12/18/2023): Pharmacotherapy: (updated 09/07/2023) - Metformin 1000mg ER BID - Trulicity 3 mg weekly - Basaglar 40 units Nightly History: (Updated 12/14/2023) Establishing CDTM 04/2023. Checks BG on occasion but frequently forgets. Recalls at home readings between 120 and 220 mg/dl fasting (AM). Now using CGM but did not have reader of numbers with her today. On statin? Y - Atorvastatin 80mg daily On ASA? Y - lifelong due to hx of cardiac cath On ZIGGY/ARB? N - indicated, start today (12/14/23) Assessment & Plan (12/14/2023 5:58 PM EST): Assessment: A1c is at goal of less than 7% per ADA guidelines Plan: Continue with current therapy. Advised to watch dietary intake to prevent need to medication adjustment A1c to be drawn at next visit and diet revisited. Assessment & Plan (09/07/2023 12:34 PM EDT): Assessment: A1c is at goal of less than 7% per ADA guidelines Plan: - A1c ordered, results: 6.9% - Continue with at home monitoring and current therapy - [facility] to check on status of Freestyle richard Assessment & Plan (07/14/2023 4:14 PM EDT): - A1c checked today; 8.4% not at goal of less than 7% per ADA guidelines - Trulicity increased to 3 mg/dl weekly - Medicare B form needed for CGM Skin lesion of back 12/23/2022 Assessment & Plan (12/23/2022 3:30 PM EST): Pt with a large pedunculated skin lesion on her back , would like to have it removed. Will refer to Dr. Nelson History of fracture of left ankle 12/02/2022 Assessment & Plan (12/02/2022 8:47 AM EST): Pt reported previously that after she had 2 steroid injections on her back had a reaction that resulted on a syncopal event fracturing his left ankle. Pt was seen by an orthopaedist at [facility]. [facility] care 12/02/2022 Overview (09/07/2023): Continues to use vials; on medication synchronization program in pharmacy so looks like the patient is using medboxes but is NOT. Is able to self manage medications on her own. Assessment & Plan (09/29/2024 1:31 PM EST): Mammogram: 02/19/2024 Normal Colonoscopy: Per GI notes: 03/04/2012 Minor diverticulosis , cecal asymptomatic AVM Seen recently for follow up, ordered cologuard Assessment & Plan (09/15/2023 3:31 PM EST): Colonoscopy: Per GI notes: 03/04/2012 Minor diverticulosis , cecal asymptomatic AVM Will refer back Assessment & Plan (12/02/2022 8:55 AM EST): Colonoscopy: Per GI notes: 03/04/2012 Minor diverticulosis , cecal asymptomatic AVM Syncope 12/02/2022 Assessment & Plan (12/02/2022 3:51 PM EST): Patient here for a HDF, She was [place] [facility] [place]23 She presented with syncope with unclear circumstances and sustained nasal bone fracture, work up included ECG showing no ACS, no arrhythmia, orthostatic blood pressure was unremarkable, the one significant finding was elevated blood glucose of nearly 800s and hemoglobin A1C of 13 which it was thought led to syncope. She was monitored on telemetry without arrhythmias during entire stay, Echo showed EF 62% with no WMA, CT head showed no acute finding. Pt was seen by her Cyber Legal Advisor Dr Freeman and is currently wearing an event monitor Forgetfulness 12/02/2022 Assessment & Plan (07/07/2024 1:26 PM EDT): Patient c/o worsening forgetfulness for months now Pt will be referred for a formal Neurology evaluation Assessment & Plan (12/02/2022 3:56 PM EST): Patient c/o worsening forgetfulness for months now Pt will be referred for a formal Neurology evaluation Closed fracture of nasal bone with routine heali ng 11/10/2022 Risk for falls 10/30/2022 Assessment & Plan (10/30/2022 4:03 PM EST): Bilateral knee pain, concerns knee giving way Walker prescribed to avoid falls Chronic pain of both knees 10/30/2022 Assessment & Plan (10/30/2022 4:02 PM EST): Pt with c/o bilateral knee pain for years, has fallen multiple times, evaluated in the past by Ortho, would like to be seen again Exam suggestive of OA Plan: Ortho referral, might benefit from steroid injections Will give a walker to prevent falls Coronary arteriosclerosis 10/22/2022 Assessment & Plan (09/29/2024 12:42 PM EST): Pt's stress test from 2020 showed mild ischemia. Pt seen by Cardiology who receommended cardiac cath Done 05/2023 It showed: mild LAD and circumflex disease and RCA 40% stenosis. Cardiology discussed with pt that Chest discomfort is noncardiac in nature. She has mild coronary artery disease which per cardiology was to be treated medically. Continue aspirin 81 mg daily indefinitely. Continue high-dose atorvastatin, Zetia and Praluent. Last seen by Cyber Legal Advisor Dr Freeman 07/2024 Assessment & Plan (09/15/2023 3:26 PM EST): Pt's stress test from 2020 showed mild ischemia. Pt seen by Cardiology who receommended cardiac cath Done 05/2023 It showed: mild LAD and circumflex disease and RCA 40% stenosis. Cardiology discussed with pt that Chest discomfort is noncardiac in nature. She has mild coronary artery disease which per cardiology was to be treated medically. Continue aspirin 81 mg daily indefinitely. Continue high-dose atorvastatin, Zetia and Praluent. Assessment & Plan (12/02/2022 8:50 AM EST): Pt's stress test from 2020 showed mild ischemia. Pt seen by Cardiology who receommended cardiac cath, Pt opted for medical management instead Migraine 10/22/2022 Assessment & Plan (12/02/2022 8:53 AM EST): Under the care of Dr Reece On Amitryptiline 100 mg 2 tabs po qhs and Topiramate 100 mg po BID Moderate persistent asthma without complication 10/22/2022 Assessment & Plan (09/29/2024 12:44 PM EST): Patient under the care of [place] Cashier Assistant, last seen 07/29/2024 Currently on Ventolin , uses albuterol nebulizarions as well. Dr Carson stopped her other inhalers Assessment & Plan (09/15/2023 3:23 PM EST): Patient under the care of [place] Cashier Assistant, last seen April Currently on Ventolin and Breztri Aerosphere , uses albuterol nebulizarions as well Assessment & Plan (12/02/2022 8:52 AM EST): Patient under the care of [place] Cashier Assistant, last seen January 2022 Currently on Ventolin and Advair , uses albuterol nebulizarions as well Obstructive sleep apnea syndrome 10/22/2022 Assessment & Plan (09/29/2024 2:30 PM EST): Pt here for a follow up Report she uses a Cpap machine with good results Assessment & Plan (12/02/2022 8:53 AM EST): Uses a Cpap machine with good results Right middle lobe pulmonary nodule 10/22/2022 Assessment & Plan (09/29/2024 2:38 PM EST): Chest CT done in the ER 05/09/2022 showed: FINDINGS: Chest: The pulmonary nodules are stable. Largest pulmonary nodule is a peripheral or subpleural 5 mm right middle lobe nodule axial image 30 series 28. There is a 1 cm cyst in the right lower lobe. The lungs are otherwise clear. There is coronary artery and aortic valve calcification. The mediastinum is otherwise normal. The heart size is normal. There is no pericardial effusion. The thoracic aorta is tortuous but normal in caliber. No fluid collection is seen. No enlarged hilar or mediastinal lymph nodes. No pleural effusion, pleural thickening or pneumothorax. No chest wall mass. Small bilateral axillary lymph nodes. No enlarged lymph nodes. Plan: Repeat Chest CT Gastro-esophageal reflux disease with esophagiti s 10/22/2022 Assessment & Plan (12/29/2023 1:11 PM EST): Pt under the care of Die Casting Supervisor at [facility] , last seen 10/2023 Currently on a regimen of Dexilant 60 mg po daily and Omeprazole 40 mg po daily Assessment & Plan (12/02/2022 8:52 AM EST): Pt under the care of Die Casting Supervisor at [facility] Currently on a regimen of Dexilant 60 mg po daily and Omeprazole 40 mg po daily Gastroparesis 10/22/2022 Overview (10/22/2022): Gastroparesis syndrome per previous EHR Assessment & Plan (09/29/2024 2:40 PM EST): Being followed by GI last seen 07/2024 Perennial allergic rhinitis 09/28/2020 Overview (09/09/2024): Allergic rhinitis: Due to other allergen; Note: Date Diagnosed: 09/28/2020 2:01 PM (477.8) Note: Date Diagnosed: 09/28/2020 2:01 PM (477.8) Allergic rhinitis: Due to other allergen; Note: Date Diagnosed: 08/24/2020 10:16 AM (477.8) Note: Date Diagnosed: 08/24/2020 10:16 AM (477.8) ; Start Date : 08/24/2020 Allergic rhinitis: Due to other allergen; Note: Date Diagnosed: 08/15/2020 11:11 AM (477.8) Note: Date Diagnosed: 08/15/2020 11:11 AM (477.8) ; Start Date : 08/15/2020 Allergic rhinitis: Due to other allergen; Note: Date Diagnosed: 08/07/2020 10:56 AM (477.8) Note: Date Diagnosed: 08/07/2020 10:56 AM (477.8) ; Start Date : 08/07/2020 Allergic rhinitis: Due to other allergen; Note: Date Diagnosed: 08/01/2020 1:36 PM (477.8) Note: Date Diagnosed: 08/01/2020 1:36 PM (477.8) ; Start Date : 08/01/2020 Allergic rhinitis: Due to other allergen; Note: Date Diagnosed: 07/05/2020 3:29 PM (477.8) Note: Date Diagnosed: 07/05/2020 3:29 PM (477.8) ; Start Date : 07/05/2020 Allergic rhinitis: Due to other allergen; Note: Date Diagnosed: 06/26/2020 2:45 PM (477.8) Note: Date Diagnosed: 06/26/2020 2:45 PM (477.8) ; Start Date : 06/26/2020 Allergic rhinitis: Due to other allergen; Note: Date Diagnosed: 06/19/2020 2:09 PM (477.8) Note: Date Diagnosed: 06/19/2020 2:09 PM (477.8) ; Start Date : 06/19/2020 Allergic rhinitis: Due to other allergen; Note: Date Diagnosed: 04/19/2020 1:44 PM (477.8) Note: Date Diagnosed: 04/19/2020 1:44 PM (477.8) ; Start Date : 04/19/2020 Allergic rhinitis: Due to other allergen; Note: Date Diagnosed: 04/12/2020 1:16 PM (477.8) Note: Date Diagnosed: 04/12/2020 1:16 PM (477.8) ; Start Date : 04/12/2020 Allergic rhinitis: Due to other allergen; Note: Date Diagnosed: 03/28/2020 1:51 PM (477.8) Note: Date Diagnosed: 03/28/2020 1:51 PM (477.8) ; Start Date : 03/28/2020 Allergic rhinitis: Due to other allergen; Note: Date Diagnosed: 02/22/2020 1:49 PM (477.8) Note: Date Diagnosed: 02/22/2020 1:49 PM (477.8) ; Start Date : 02/22/2020 Allergic rhinitis: Due to other allergen; Note: Date Diagnosed: 01/25/2020 2:09 PM (477.8) Note: Date Diagnosed: 01/25/2020 2:09 PM (477.8) ; Start Date : 01/25/2020 Allergic rhinitis: Due to other allergen; Note: Date Diagnosed: 01/12/2020 1:05 PM (477.8) Note: Date Diagnosed: 01/12/2020 1:05 PM (477.8) ; Start Date : 01/12/2020 Allergic rhinitis: Due to other allergen; Note: Date Diagnosed: 01/05/2020 1:49 PM (477.8) Note: Date Diagnosed: 01/05/2020 1:49 PM (477.8) ; Start Date : 01/05/2020 Allergic rhinitis: Due to other allergen; Note: Date Diagnosed: 12/28/2019 2:39 PM (477.8) Note: Date Diagnosed: 12/28/2019 2:39 PM (477.8) ; Start Date : 12/28/2019 Allergic rhinitis: Due to other allergen; Note: Date Diagnosed: 12/07/2019 3:03 PM (477.8) Note: Date Diagnosed: 12/07/2019 3:03 PM (477.8) ; Start Date : 12/07/2019 Allergic rhinitis: Due to other allergen; Note: Date Diagnosed: 08/31/2019 2:04 PM (477.8) Note: Date Diagnosed: 08/31/2019 2:04 PM (477.8) ; Start Date : 08/31/2019 Allergic rhinitis: Due to other allergen; Note: Date Diagnosed: 08/25/2019 1:07 PM (477.8) Note: Date Diagnosed: 08/25/2019 1:07 PM (477.8) ; Start Date : 08/25/2019 Allergic rhinitis: Due to other allergen; Note: Date Diagnosed: 07/26/2019 11:51 AM (477.8) Note: Date Diagnosed: 07/26/2019 11:51 AM (477.8) ; Start Date : 07/26/2019 Allergic rhinitis: Due to other allergen; Note: Date Diagnosed: 06/21/2019 11:30 AM (477.8) Note: Date Diagnosed: 06/21/2019 11:30 AM (477.8) ; Start Date : 06/21/2019 Allergic rhinitis: Due to other allergen; Note: Date Diagnosed: 05/24/2019 10:33 AM (477.8) Note: Date Diagnosed: 05/24/2019 10:33 AM (477.8) ; Start Date : 05/24/2019 Allergic rhinitis: Due to other allergen; Note: Date Diagnosed: 05/17/2019 11:51 AM (477.8) Note: Date Diagnosed: 05/17/2019 11:51 AM (477.8) ; Start Date : 05/17/2019 Allergic rhinitis: Due to other allergen; Note: Date Diagnosed: 03/18/2019 1:36 PM (477.8) No Allergic rhinitis: Due to other allergen; Note: Date Diagnosed: 09/28/2020 2:01 PM (477.8) Allergic rhinitis: Due to other allergen; Note: Date Diagnosed: 08/24/2020 10:16 AM (477.8) ; Start Date : 08/24/2020 Allergic rhinitis: Due to other allergen; Note: Date Diagnosed: 08/15/2020 11:11 AM (477.8) ; Start Date : 08/15/2020 Allergic rhinitis: Due to other allergen; Note: Date Diagnosed: 08/07/2020 10:56 AM (477.8) ; Start Date : 08/07/2020 Allergic rhinitis: Due to other allergen; Note: Date Diagnosed: 08/01/2020 1:36 PM (477.8) ; Start Date : 08/01/2020 Allergic rhinitis: Due to other allergen; Note: Date Diagnosed: 07/05/2020 3:29 PM (477.8) ; Start Date : 07/05/2020 Allergic rhinitis: Due to other allergen; Note: Date Diagnosed: 06/26/2020 2:45 PM (477.8) ; Start Date : 06/26/2020 Allergic rhinitis: Due to other allergen; Note: Date Diagnosed: 06/19/2020 2:09 PM (477.8) ; Start Date : 06/19/2020 Allergic rhinitis: Due to other allergen; Note: Date Diagnosed: 04/19/2020 1:44 PM (477.8) ; Start Date : 04/19/2020 Allergic rhinitis: Due to other allergen; Note: Date Diagnosed: 04/12/2020 1:16 PM (477.8) ; Start Date : 04/12/2020 Allergic rhinitis: Due to other allergen; Note: Date Diagnosed: 03/28/2020 1:51 PM (477.8) ; Start Date : 03/28/2020 Allergic rhinitis: Due to other allergen; Note: Date Diagnosed: 02/22/2020 1:49 PM (477.8) ; Start Date : 02/22/2020 Allergic rhinitis: Due to other allergen; Note: Date Diagnosed: 01/25/2020 2:09 PM (477.8) ; Start Date : 01/25/2020 Allergic rhinitis: Due to other allergen; Note: Date Diagnosed: 01/12/2020 1:05 PM (477.8) ; Start Date : 01/12/2020 Allergic rhinitis: Due to other allergen; Note: Date Diagnosed: 01/05/2020 1:49 PM (477.8) ; Start Date : 01/05/2020 Allergic rhinitis: Due to other allergen; Note: Date Diagnosed: 12/28/2019 2:39 PM (477.8) ; Start Date : 12/28/2019 Allergic rhinitis: Due to other allergen; Note: Date Diagnosed: 12/07/2019 3:03 PM (477.8) ; Start Date : 12/07/2019 Allergic rhinitis: Due to other allergen; Note: Date Diagnosed: 08/31/2019 2:04 PM (477.8) ; Start Date : 08/31/2019 Allergic rhinitis: Due to other allergen; Note: Date Diagnosed: 08/25/2019 1:07 PM (477.8) ; Start Date : 08/25/2019 Allergic rhinitis: Due to other allergen; Note: Date Diagnosed: 07/26/2019 11:51 AM (477.8) ; Start Date : 07/26/2019 Allergic rhinitis: Due to other allergen; Note: Date Diagnosed: 06/21/2019 11:30 AM (477.8) ; Start Date : 06/21/2019 Allergic rhinitis: Due to other allergen; Note: Date Diagnosed: 05/24/2019 10:33 AM (477.8) ; Start Date : 05/24/2019 Allergic rhinitis: Due to other allergen; Note: Date Diagnosed: 05/17/2019 11:51 AM (477.8) ; Start Date : 05/17/2019 Allergic rhinitis: Due to other allergen; Note: Date Diagnosed: 03/18/2019 1:36 PM (477.8) ; Start Date : 03/18/2019 Perennial allergic rhinitis; Note: Date Diagnosed: 02/08/2019 3:56 PM (J30.89) ; Start Date : 02/08/2019 Diabetes mellitus type 2 with neurological manif estations 05/03/2019 Assessment & Plan (09/29/2024 12:54 PM EST): Pt is here for a f/u DM She is on a regimen of: Metformin ER 500 mg 2 tabs po twice daily, Trulicity 3 mg once a week , and Basaglar 40 units at bedtime and short acting Insulin sliding scale from 4-6 units QAC She tests 4 times a day, benefits from CGM Hgb A1c 09/29/2024: [facility] Microalbumin 12/19/2021 was 3.1 Pt not on any ZIGGY inhibitor/ARB Foot check today is risk of: zero Pt reports compliance with Asa 81 mg po daily Pt adviced to: adhere to diabetic diet She did not bring her glucometer Plan: Continue regimen as per CDTM team, no changes until she brings her glucometer check your blood sugars regularly check your feet on a daily basis. F/u 4 months Assessment & Plan (09/09/2024 1:21 PM EDT): Pt A1c is 7.8 and glucose is 225 DM uncontrolled She is on a regimen of: Metformin ER 500 mg 2 tabs po twice daily, Trulicity 3 mg once a week , and Basaglar 40 units at bedtime and short acting Insulin sliding scale from 4-6 units QAC She tests 4 times a day, benefits from CGM Pt reports compliance with Asa 81 mg po daily Emphasized importance of adhering to diabetic diet Plan: Continue regimen as per CDTM team, check your blood sugars regularly check your feet on a daily basis. F/u with PCP end of this month Assessment & Plan (07/07/2024 1:34 PM EDT): Pt is here for a f/u DM uncontrolled She is on a regimen of: Metformin ER 500 mg 2 tabs po twice daily, Trulicity 3 mg once a week , and Basaglar 42 units at bedtime and short acting Insulin sliding scale from 4-6 units QAC She tests 4 times a day, benefits from CGM Hgb A1c 07/07/2024: 8.2 Eye exam , records requested [facility] Microalbumin 12/19/2021 was 3.1 Pt not on any ZIGGY inhibitor/ARB Foot check today is risk of: zero Pt reports compliance with Asa 81 mg po daily Pt adviced to: adhere to diabetic diet She did not bring her glucometer Plan: Continue regimen as per CDTM team, no changes until she brings her glucometer check your blood sugars regularly check your feet on a daily basis. F/u 4 months Assessment & Plan (12/29/2023 12:53 PM EST): Pt is here for a f/u DM controlled She is on a regimen of: Metformin ER 500 mg 2 tabs po twice daily, Trulicity 3 mg once a week , and Basaglar 42 units at bedtime and short acting Insulin sliding scale from 4-6 units QAC She tests 4 times a day, benefits from CGM Hgb A1c 12/29/2023: Eye exam , records requested [facility] Microalbumin 12/19/2021 was 3.1 Pt not on any ZIGGY inhibitor/ARB Foot check today is risk of: zero Pt reports compliance with Asa 81 mg po daily Pt adviced to: adhere to diabetic diet Plan: Continue regimen as per CDTM team check your blood sugars regularly check your feet on a daily basis. F/u 4 months Assessment & Plan (09/15/2023 3:15 PM EST): Pt is here for a f/u DM controlled She is on a regimen of: Metformin ER 500 mg 2 tabs po twice daily, Trulicity 3 mg once a week , and Basaglar 42 units at bedtime and short acting Insulin sliding scale from 4-6 units QAC Hgb A1c 08/2023 was 6.9 Eye exam , records requested [facility] Microalbumin 12/19/2021 was 3.1 Pt not on any ZIGGY inhibitor/ARB Foot check today is risk of: zero Pt reports compliance with Asa 81 mg po daily Pt adviced to: adhere to diabetic diet Plan: Continue regimen as per CDTM team check your blood sugars regularly check your feet on a daily basis. F/u 4 months Assessment & Plan (07/06/2023 3:00 PM EDT): - Increase Lantus to 42 units nightly - Increase trulicty to 3mg/dl weekly Assessment & Plan (07/06/2023 2:54 PM EDT): - SMBG is within goal of less than 130mg/dl Assessment & Plan (05/04/2023 3:40 PM EDT): - Freestyle [place] and Sensor Ordered - A1c is not at goal of less than 7% per ADA guidelines - A1c due for repeat - Refill ordered for lantus Assessment & Plan (12/23/2022 2:42 PM EST): Pt is here for a f/u DM improving She is on a regimen of: Metformin ER 500 mg 2 tabs po daily, Trulicity 1.5 once a week , and Lantus in the ER 40 units at bedtime and short acting Insulin sliding scale from 4-6 units QAC. Glucometer today shows: average 151 Hgb A1c 12/02/2022 was 11 Eye exam , records requested [facility] Microalbumin 12/19/2021 was 3.1 Pt not on any ZIGGY inhibitor/ARB Foot check today is risk of: zero Pt reports compliance with Asa 81 mg po daily Pt adviced to: adhere to diabetic diet Plan: Increase Metformin ER 500 to 2 tabs po BID check your blood sugars regularly check your feet on a daily basis. F/u 2 months Assessment & Plan (12/02/2022 3:45 PM EST): Pt is here for a f/u DM improving She is on a regimen of: Metformin ER 500 mg 2 tabs po daily, Trulicity 1.5 once a week , and was recently started on Lantus in the ER 40 units at bedtime and short acting Insulin sliding scale from 4-6 units QAC. She did not bring her glucometer Hgb A1c 12/02/2022 was 11 Blood glucose today: 317 Eye exam , records requested [facility] Microalbumin 12/19/2021 was 3.1 Pt not on any ZIGGY inhibitor/ARB Foot check today is risk of: zero Pt reports compliance with Asa 81 mg po daily Pt adviced to: adhere to diabetic diet Plan: No changes until she brings her glucometer check your blood sugars regularly check your feet on a daily basis. F/u 1 month Primary osteoarthritis of both knees 11/30/2018 Peripheral neuropathy 02/16/2018 Assessment & Plan (09/29/2024 2:30 PM EST): Due to underlying DM Assessment & Plan (12/02/2022 3:54 PM EST): Due to underlying DM Urinary incontinence 02/14/2015 Obesity 02/14/2015 Assessment & Plan (09/29/2024 1:27 PM EST): Patient has been counseled and educated about diet and exercise. Personal goal of weight loss discussedPatient has comorbidity of: HTN Assessment & Plan (12/29/2023 1:13 PM EST): Patient has been counseled and educated about diet and exercise. Personal goal of weight loss discussedPatient has comorbidity of: HTN Solitary renal cyst 11/07/2014 Overview (09/15/2023): Incidentally found on MRI of lower back at [facility] in 2008, unchanged 2009. Sl enlarged 2013. Ref uro Davis's esophagus 01/03/2013 Overview (12/02/2022): [place]. Parviz [place] [facility] [place] Assessment & Plan (09/29/2024 2:39 PM EST): She has been under the care of JAMIE Jean, last seen 07/2024 She is due to repeat EGD for SSBE survey. Assessment & Plan (12/29/2023 1:10 PM EST): She has been under the care of JAMIE Jean, last seen 10/2023 She continues on her Reglan 5 mg 3 times a day, and her DexilantThis is controlling her symptoms of early satiety-nausea She is due to repeat EGD for SSBE survey. Fibromyalgia 12/06/2012 Degenerative disc disease, lumbar 09/13/2012 Degenerative disc disease, lumbar 09/13/2012 Overview (09/09/2024): 4 surgeries in the past Hyperlipidemia 06/10/2012 Overview (09/07/2023): Pharmacotherapy: (udpated 09/07/2023) - Atorvastatin 80mg daily - Praluent 75mg/dl (prescribed externally) - Ezetimibe 10mg daily History: - followed by [facility] Assessment & Plan (09/29/2024 12:59 PM EST): Patient with elevated lipids. Lipid profile 07/19/2024 Lab Results Component Value Date TRIG 167 (H) 07/19/2024 TRIG 181 05/19/2023 CHOL 202 (H) 07/19/2024 CHOL 173 05/19/2023 LDLCHOLCAL 131 (H) 07/19/2024 LDLCHOLCAL 91 05/19/2023 HDL 38 (L) 07/19/2024 HDL 46 05/19/2023 Currently on a regimen of: Atorvastatin 80 mg po daily . Praluent 75 and Ezetimibe 10 mg daily . For now will continue with current regimen advised to try to adhere to a low cholesterol diet, counseled and educated about diet and exercise, Patient encouraged to come up with a personal goal for weight loss. Assessment & Plan (07/07/2024 1:27 PM EDT): Patient with elevated lipids. Lipid profile 05/19/2023 Lab Results Component Value Date TRIG 181 05/19/2023 CHOL 173 05/19/2023 LDLCHOLCAL 91 05/19/2023 HDL 46 05/19/2023 Currently on a regimen of: Atorvastatin 80 mg po daily . Praluent 75 and Ezetimibe 10 mg daily . For now will continue with current regimen advised to try to adhere to a low cholesterol diet, counseled and educated about diet and exercise, Patient encouraged to come up with a personal goal for weight loss. Assessment & Plan (12/29/2023 12:57 PM EST): Patient with elevated lipids. Lipid profile 05/19/2023 Component Ref Range & Units 7 mo ago 2 yr ago Triglycerides mg/dL 181 123 R Comment: Desirable Triglyceride: less than 150 mg/dLBorderline High Triglyceride 150-199 mg/dLHigh Triglyceride: 200-499 mg/dLVery High Triglyceride: greater than or equal to 5OO mg/dL Cholesterol mg/dL 173 Comment: Desirable Cholesterol: less than 200 mg/dLBorderline High Cholesterol: 200-239 mg/dLHigh Cholesterol: greater than 239 mg/dL LDL Cholesterol Calculated mg/dl 91 Comment: Desirable LDL: less than 100 mg/dLNear Optimal/Above Optimal LDL: 110- 129 mg/dLBorderline High LDL: 130-159 mg/dLHigh LDL: 160-189 mg/dLVery High LDL: greater than or equal to 190 mg/dL HDL Cholesterol mg/dL 46 48 Low R Currently on a regimen of: Atorvastatin 80 mg po daily . Praluent 75 and Ezetimibe 10 mg daily . For now will continue with current regimen advised to try to adhere to a low cholesterol diet, counseled and educated about diet and exercise, Patient encouraged to come up with a personal goal for weight loss. Assessment & Plan (09/07/2023 12:58 PM EDT): Assessment: Lipids are at goal per ADA guidlines Plan: - No changes/ continue with cardiology Assessment & Plan (12/02/2022 8:50 AM EST): Patient with elevated lipids. Lipid profile 12/19/2021 T Chol: 159, Tri, HDL: 48, LDL: 89 Currently on a regimen of: Atorvastatin 80 mg po daily . For now will continue with current regimen until labs done advised to try to adhere to a low cholesterol diet, counseled and educated about diet and exercise, Patient encouraged to come up with a personal goal for weight loss. Irritable bowel syndrome 06/10/2012 Hypertension 04/21/2012 Overview (09/09/2024): Assessment & Plan (09/29/2024 12:55 PM EST): Patient here for a f/u with Hypertension currently controlled on a regimen of: Toprol XL 50 mg po daily and Amlodipine 10 mg po daily Plan:Continue current regimen BMP Lab Results Component Value Date NA 140 07/21/2024 NA 139 07/19/2024 K 3.9 07/21/2024 K 4.0 07/19/2024 CL 108 07/21/2024 CL 109 (H) 07/19/2024 BUN 12 07/21/2024 BUN 18 (H) 07/19/2024 CREATININE 0.80 07/21/2024 CREATININE 0.70 07/19/2024 wnl. patient advised to adhere to a low sodium diet, encouraged about medication compliance, counseled about weight loss. f/u 4 months Assessment & Plan (09/09/2024 2:29 PM EDT): BP above goal of 140/90 Pt to continue on amlodipine and metoprolol as prescribed Changed Lisinopril 2.5 to 10 mg once daily Pt plans to check BP twice daily at home Encouraged low sodium diet with an increase of vegetables, fruits, and whole grains Encouraged 30 minutes of physical activity 2-3 times a week as tolerated Pt plans to f/u with PCP this month Assessment & Plan (07/07/2024 1:25 PM EDT): Patient here for a f/u with Hypertension currently controlled on a regimen of: Toprol XL 50 mg po daily and Amlodipine 10 mg po daily Plan:Continue current regimen BMP 08/10/2023 wnl. Will repeat patient advised to adhere to a low sodium diet, encouraged about medication compliance, counseled about weight loss. f/u 4 months Assessment & Plan (03/29/2024 8:06 PM EDT): Uncontrolled, she hasn't taken meds in at least 2w. I confirmed with pharmacy and meds were reportedly picked up on 03/09 Patient will check at home and callback prn if she can't find her meds. Assessment & Plan (12/29/2023 1:25 PM EST): Patient here for a f/u with Hypertension currently uncontrolled on a regimen of: Toprol XL 25 mg po daily and Amlodipine 10 mg po daily Plan: Increase toprol XL to 50 mg po daily BMP 08/10/2023 wnl. patient advised to adhere to a low sodium diet, encouraged about medication compliance, counseled about weight loss. f/u 4 months Assessment & Plan (12/18/2023 12:08 PM EST): Assessment: BP is NOT at goal of less than 140/90 per JNC8 guidelines Plan: - Add lisinopril 2.5mg daily, f/u in 3 weeks with PCP; CDTM f/u in 3 months. Assessment & Plan (09/07/2023 12:28 PM EDT): Assessment: BP is NOT at goal of less than 140/90 per JNC8/ ADA guidelines Plan: - Since BP has been under control at home; continue to monitor BP at home and record readings. NO medication changes today. - f/u in 1.5 months to check BP Assessment & Plan (07/06/2023 3:18 PM EDT): - Unable to assess. Patient to record BP readings from home. - F/U in 2 weeks Assessment & Plan (07/06/2023 2:57 PM EDT): - BP is at goal of less than 140/90 per JNC8 guidelines Assessment & Plan (06/12/2023 4:20 PM EDT): - BP monitor prescribed - Patient to check BP daily and report at next f/u visit. Assessment & Plan (05/04/2023 3:42 PM EDT): - BP today near goal of less than 140/90 per JNC 8 guidelines. DBP elevated at 100. - Pt to take blood pressure at home/ f/u in 1 month. Assessment & Plan (01/15/2023 8:05 AM EST): -Pt reports readings well controlled at home. Possible elevation today r/t acute on chronic pain -Continue with current med management and lifestyle interventions -Return parameters reviewed Assessment & Plan (12/23/2022 2:31 PM EST): Patient here for a f/u with Hypertension currently controlled on a regimen of: Toprol XL 25 mg po daily and Amlodipine 10 mg po daily Given adequate blood pressure control will continue with current medical regimen. BMP 11/30/2021 wnl. patient advised to adhere to a low sodium diet, encouraged about medication compliance, counseled about weight loss. f/u 4 months Assessment & Plan (12/02/2022 8:48 AM EST): Patient here for a f/u with Hypertension currently controlled on a regimen of: Toprol XL 25 mg po daily and Amlodipine 10 mg po daily Given adequate blood pressure control will continue with current medical regimen. BMP 12/19/2021 wnl. patient advised to adhere to a low sodium diet, encouraged about medication compliance, counseled about weight loss. f/u 4 months Anemia 11/09/1959 Chronic low back pain 11/09/1959 Assessment & Plan (07/07/2024 1:35 PM EDT): Pt with chronic low back pain s/p lumbar fusion by Dr Dickinson, never made improvements after surgery. pt is being followed by Dr. Jarod Angelo ([id number] ). She is now under the care of [place] [facility] [place] [facility] [place] x-ray ordered by them 12/22/2023 showed; Status post L3, L4 and L5 laminectomy. 2. Fusion at L5-S1 and lateral bony fusion from L4 through S1 transverse processes. 3. Severe degenerative facet joint disease from L3 through S1. Assessment & Plan (12/29/2023 1:18 PM EST): Pt with chronic low back pain s/p lumbar fusion by Dr Dickinson, never made improvements after surgery. pt is being followed by Dr. Jarod Angelo ([id number] ). She is now under the care of the [facility] [place] [facility] [place] x-ray ordered by them 12/22/2023 showed; Status post L3, L4 and L5 laminectomy. 2. Fusion at L5-S1 and lateral bony fusion from L4 through S1 transverse processes. 3. Severe degenerative facet joint disease from L3 through S1. Pt has an upcoming appointment Assessment & Plan (12/02/2022 8:49 AM EST): Pt with chronic low back pain s/p lumbar fusion by Dr Dickinson, never made improvements after surgery. Will request records from most recent MRI at [facility] pt is being followed by Dr. Jarod Angelo ([id number] [facility] ). Depressive disorder 11/09/1959 Assessment & Plan (12/23/2022 2:42 PM EST): Patient under the care of psychiatrist at [place] Currently on a regimen of: Clonazepam 0.5 mg po BID PRN, Trazodone 100 mg po qhs and Mirtazapine 45 mg po at bedtime Pt reports she has agoraphobia and cannot attend Jury Duty She is requesting a letter that due to the fact that she does not speak greek and has a psychiatric condition that causes her extreme anxiety when she is surrounded by people, she cannot attend Jury duty Assessment & Plan (12/02/2022 8:44 AM EST): Patient under the care of psychiatrist at [place] Currently on a regimen of: Clonazepam 0.5 mg po BID PRN, Trazodone 100 mg po qhs and Mirtazapine 45 mg po qhs Microscopic hematuria 11/09/1959 Resolved Problems Problem Noted Date Diagnosed Date Resolved Date Pre-op evaluation 09/09/2024 09/29/2024 Assessment & Plan (09/09/2024 2:28 PM EDT): -The incidence of perioperative cardiovascular events varies according to the patient risk profile, patient's functional capacity, and risk of the proposed surgery. Active cardiac conditions that are contraindications to elective surgery: Surgery-Specific Cardiac Risk: low Cardiac risk by patient profile (RCRI): Patient has 1 risk factors corresponding to 0.9%risk of a major cardiac event during surgery. Functional capacity = 4 METS. The patient reports being able to walk up 1 one flight of stairs and 2 blocks but does get fatigued. This patient is at low risk for an low risk procedure. The patient is at acceptable risk for the proposed procedure. Reviewed with patient that no surgery is completely free of risk and this evaluation is to assist surgeon in accurately reviewing informed consent. Medication Recs: -Hold aspirin and Ibuprofen 5 days before surgery -Stop Ezetimibe 1 day before surgery. -Stop Lisinopril and Metformin day of surgery. May restart day after the surgery unless directed differently by surgeon -Cut Basaglar insulin in half (20 units) day before surgery, do not take day of surgery -Take Metoprolol the morning of surgery with a small sip of water. Asthenia 10/10/2019 09/29/2024 Overview (09/09/2024): Asthenia NOS; Note: Date Diagnosed: 10/10/2019 9:51 AM (R53.1) Note: Date Diagnosed: 10/10/2019 9:51 AM (R53.1) Asthenia NOS; Note: Date Diagnosed: 10/10/2019 9:51 AM (R53.1) Nasal congestion 02/08/2019 09/29/2024 Overview (09/09/2024): Nasal congestion; Note: Date Diagnosed: 02/08/2019 3:56 PM (R09.81) Note: Date Diagnosed: 02/08/2019 3:56 PM (R09.81) Nasal congestion; Note: Date Diagnosed: 02/08/2019 3:56 PM (R09.81) Pruritus 02/08/2019 09/29/2024 Overview (09/09/2024): Pruritus, unspecified; Note: Date Diagnosed: 02/08/2019 3:52 PM (L29.9) Encounters Date Type Department Care Team Description 12/29/2024 Refill [facility] [address], [place] [phone] Renan Lawson MD Fibromyalgia 12/28/2024 Refill [facility] [address], [place] [phone] Renan Lawson MD 12/27/2024 Refill [facility] [address], [place] [phone] Renan Lawson MD Primary hypertension; 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); Type 2 diabetes mellitus without complication, without long-term current use of insulin (CMS/HCC) 12/01/2024 Refill [facility] [address] [place] [phone] Ashtyn Dill, LAURYN Primary hypertension 11/29/2024 Refill [facility] [address] [place] [phone] Edilberto Barahona, PharmD Diabetes mellitus type 2 with neurological manifestations ([facility]) 11/29/2024 Travel 11/29/2024 Refill [facility] [address] [place], [place] [phone] Renan Lawson MD Mixed hyperlipidemia; Fibromyalgia 11/21/2024 Refill [facility] [address] [place], [place] [phone] Renan Lawson MD Primary hypertension; Mixed hyperlipidemia; Seasonal allergies 10/31/2024 Telephone [facility] [address] [place], [place] [phone] Britni Brink, RN Paperwork/Forms from Last 3 Months Immunizations Name Administration Dates Next Due Hep B, adult 10/24/2024 Influenza High-dose Quadriva lent Preservative Free 07/25/2023,07/18/2021 Influenza Injectable Quadriv alant Preservative Free IIV4 MDCK 07/21/2019,08/14/2017 Influenza injectable quadriv alent preservative free 07/15/2020,07/08/2018 Influenza, High Dose Seasona l, Preservative Free 09/29/2024 Influenza, IIV3, injectable 07/08/2018, 3,07/09/2011 Influenza, injectable, quadr ivalent, preservative free, pediatric 07/20/2013 Moderna Covid-19 Vaccine 12+ 12/19/2021,03/10/20 21,02/10/2021 Pfizer Covid-19 Vaccine 12+ 10/24/2024 Pneumococcal Conjugate PCV 13 03/10/2022 Pneumococcal Polysaccharide PPSV23 03/20/2023,,10/12/2014 TD (adult), 2 Lf tetanus tox oid, preservative free, adsorbed 09/29/2024,07/29/2007 Td (adult) 07/29/2007 Tdap 06/02/2013 Zoster, Recombinant 05/23/2022,03/10/2022 Zoster, live 12/31/2017 Social History Tobacco Use Types Packs/Day Years Used Date Smoking Tobacco: Former Cigarettes Passive Smoke Exposure: Past Smokeless Tobacco: Never Tobacco Cessation:Counseling Given: Not Answered Alcohol Use Standard Drinks/Week Comments Never 0 [...] Orientation Straight 09/08/2022 10 :14 AM EDT Last Filed Vital Signs Vital Sign Reading Time Taken Comments Blood Pressure 138/89 09/29/2024 1:24 PM EST Pulse 87 09/29/2024 1:16 PM EST Temperature 36.1 ??C (96.9 ??F) 09/29/2024 1:16 PM ES T Respiratory Rate 20 09/29/2024 1:16 PM EST Oxygen Saturation 96% 09/29/2024 1:16 PM EST Inhaled Oxygen Concentration - - Weight 99.6 kg (219 lb 9.6 oz) 09/29/2024 1:16 P M EST Height 165.1 cm (5' 5 ) 09/29/2024 1:16 PM EST Body Mass Index 36.54 09/29/2024 1:16 PM EST Plan of Treatment Upcoming Encounters Date Type Department Care Team (Late st Contact Info) Description 01/23/2025 2:30 PM EDT Medication Management [facility] [address] [place] [phone] Richelle Albarado, PharmD [address] [place] [address] 01/26/2025 1:15 PM EDT Office Visit [facility] [address] [place] [phone] Renan Lawson MD [address] [place] [address] Health Maintenance Due Date Last Done Comments CT Colonography 1955 Colonoscopy 1955 Colorectal Cancer Screening 1955 FIT DNA/Cologuard 1955 FIT 1955 FOBT 1955 Sigmoidoscopy 1955 Diabetes: Foot Exam 1965 Hepatitis C Screening 1973 RSV Patients and Patients Aged 60 years or older (1 - Risk 60-74 years 1-dose series) 2015 Diabetes: Urine Protein Screening 12/19/2022 12/19/2021 Hepatitis B Vaccines (2 of 3 - 19+ 3-dose series) 11/21/2024 10/24/2024 Diabetes: Hemoglobin A1C 12/10/2024 024, 07/07/2024, 04/19/2024, Additional history exists SDOH Screening 12/18/2024 12/18/2023 Depression Screening 12/29/2024 12/29/2023, 12/29/19 24 Mammogram 02/18/2025 02/19/2024, 03/14/2022 Lipid Panel 07/19/2025 07/19/2024, 05/09, 05/19/2023, Additional history exists Alcohol/Substance Use Screening 09/29/2025 09/29/2024 Tobacco Screening 09/29/2025 09/29/2024 Eye Exam 12/18/2025 12/18/2023 DTaP/Tdap/Td Vaccines (3 - Td or Tdap) 09/29/2034 09/29/2024, 06/02/2013, 07/29/2007, Additional history exists Zoster Vaccines Completed 05/23/2022, 12/2021, 12/31/2017 Pneumococcal Vaccine: 50+ Years Completed 03/20/2023, 03/10/2022, 08/07/2016, Additional history exists Influenza Vaccine Completed 09/29/2024, , 07/18/2021, Additional history exists COVID-19 Vaccine Completed 10/24/2024, 08/2022, 03/10/2021, Additional history exists HIB Vaccines Aged Out No longer eligi ble based on patient's age to complete this topic HPV Vaccines Aged Out No longer eligi ble based on patient's age to complete this topic Hepatitis A Vaccines Aged Out No long er eligible based on patient's age to complete this topic IPV Vaccines Aged Out No longer eligi ble based on patient's age to complete this topic Meningococcal Vaccine Aged Out No wilfredo rex eligible based on patient's age to complete this topic RSV under 20 months Aged Out No longe r eligible based on patient's age to complete this topic Rotavirus Vaccines Aged Out No longer eligible based on patient's age to complete this topic Goals Goal Patient Goal Type Associated Problems [...] 10:10 AM EDT) No Edilberto Barahona PharmD Procedures Procedure Name Priority Date/Time Associated Diagnosis Comments CT CHEST WO CONTRAST Routine 11/14/2024 10:23 AM EST Right middle lobe pulmonary nodule POCT GLYCATED HEMOGLOBIN, TOTAL Routine 09/09/2024 10:10 AM EDT 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 [facility] ?[address] ?[place] [address] ? CT Scan Report ? Signed ? Patient: Slava,Christianne ?MR#: [id number] ?? [id number] ? : 1955 ?Acct:[id number] ? Age/Sex: 68 / F ?ADM Date: 01/03/25 ? Loc: HO.CT ? Attending Dr: Renan Cabral MD ? Ordering Physician: Renan Cabral MD ?? Date of Service: 11/11/24 ?? Procedure(s): CT chest wo IV con ?? Accession Number(s): [id number] ? cc: Renan Cabral MD ? Report Number: ?? [id number]: Total DLP = ??198.00 mGy-cm ? CLINICAL HISTORY: pulmonary nodule ? CT chest without contrast ? Comparison: None ? Findings: ?? Heavy coronary artery calcifications. ?? The visualized thyroid and mediastinum are unremarkable. ? 5 mm ground-glass opacity nodule in the right upper lobe. 4 noncalcified ?? nodules within the right middle and lower lobes measuring up to 5 mm. A ?? few scattered 1-2 mm left lung nodules. Small calcified right middle lobe ?? granuloma. ?? Small right lower lobe lung cyst. ? Mild splenomegaly measuring 13.7 cm dimension. ?? Partial left hepatic lobe surface lobulation. Query cirrhosis. ?? No acute fractures. ? IMPRESSION: ?? Bilateral lung calcified scattered lung nodules measuring up to 5 mm are ?? nonspecific. Follow-up per Fleischner society criteria recommended. ?? Partial left hepatic lobe surface lobulation. Query cirrhosis. ?? Mild splenomegaly. ? Fleischner 2017 Guidelines were utilized to develop follow up ?? recommendations for this patient. The full article can be viewed at: ?? https://goo.gl/emmULK ? Follow up strategies in solid nodules vary depending on patient risk ?? assessment, with patient's classified as high or low risk. ?? Low risk is associated with young age, smaller nodule size, regular ?? margins, and location in an area other than the upper lobe. ?? High risk factors include older age, heavy smoking, emphysema, carcinogen ?? exposure, larger nodule size, irregular or spiculated margins, and upper ?? lobe location. ?? Nodule size and morphology are the dominant factors. ? Follow up of subsolid nodules (including ground glass and part solid ?? opacities) is different when compared to solid nodules based on risk of ?? malignancy and a longer doubling time in this group. Therefore when follow ?? up is recommended, it is for a longer interval. ?? Also in this group, recommendations may vary depending on a solitary ?? lesion versus multiplicity of lesions. ? A calculator of estimated risk is available at: https://Liepin.com.BiolineRx/JEEJEh ? ##PFU## ? This document has been electronically signed by: Maggie Marina MD on ?? 11/14/2024 10:23:45 ? Dictated By: ?Maggie Marina MD ? Signed By: ?<Electronically signed by Maggie Marina MD in OV> ? 11/14/24 1025 ? DD/ 1023 ? TD/TT: 11/14/24 1023 ? Chef Concierge: ? Procedure Note Donotuseinterpreter, Image - 11/14/[address] [address] [address] Scan Report Signed Patient: Naa Pedersen EMR#: [id number] : 6Acct:[id number] Age/Sex: 68 / FADM Date: 11/11/24 Loc: HO.CT Attending Dr: Renan Cabral MD Ordering Physician: Renan Cabral MD Date of Service: 11/11/24 Procedure(s): CT chest wo IV con Accession Number(s): [id number] cc: Renan Cabral MD Report Number: [id number]: Total DLP = 198.00 mGy-cm CLINICAL HISTORY: pulmonary nodule CT chest without contrast Comparison: None Findings: Heavy coronary artery calcifications. The visualized thyroid and mediastinum are unremarkable. 5 mm ground-glass opacity nodule in the right upper lobe. 4 noncalcified nodules within the right middle and lower lobes measuring up to 5 mm. A few scattered 1-2 mm left lung nodules. Small calcified right middle lobe granuloma. Small right lower lobe lung cyst. Mild splenomegaly measuring 13.7 cm dimension. Partial left hepatic lobe surface lobulation. Query cirrhosis. No acute fractures. IMPRESSION: Bilateral lung calcified scattered lung nodules measuring up to 5 mm are nonspecific. Follow-up per Fleischner society criteria recommended. Partial left hepatic lobe surface lobulation. Query cirrhosis. Mild splenomegaly. Fleischner 2017 Guidelines were utilized to develop follow up recommendations for this patient. The full article can be viewed at: https://goo.gl/emmULK Follow up strategies in solid nodules vary depending on patient risk assessment, with patient's classified as high or low risk. Low risk is associated with young age, smaller nodule size, regular margins, and location in an area other than the upper lobe. High risk factors include older age, heavy smoking, emphysema, carcinogen exposure, larger nodule size, irregular or spiculated margins, and upper lobe location. Nodule size and morphology are the dominant factors. Follow up of subsolid nodules (including ground glass and part solid opacities) is different when compared to solid nodules based on risk of malignancy and a longer doubling time in this group. Therefore when follow up is recommended, it is for a longer interval. Also in this group, recommendations may vary depending on a solitary lesion versus multiplicity of lesions. A calculator of estimated risk is available at: https://goo.gl/JEEJEh ##PFU## This document has been electronically signed by: Maggie Marina MD on 11/14/2024 10:23:45 Dictated By: Maggie Marina MD Signed By: <Electronically signed by Maggie Marina MD in OV> 11/14/24 1025 DD/ 1023 TD/TT: 11/14/24 1023 Chef Concierge: Renan Aparicio MD IMG CT PROCEDURES Robert genia Result - Final * (ABNORMAL) POCT HGB A1C (09/09/2024 10:10 AM EDT) Hemoglobin A1C 7.8(A) 4.0 - 6.0 % QC Media Lot # [id number] Lot# Expiration Date ,206 Blood 09/09/2024 10:1 0 AM EDT Ashtyn Dill NP POINT OF CARE TEST ENTER/EDIT OR DERABLES Final Result * (ABNORMAL) Lipid Panel, Standard (07/19/2024 10:47 AM EDT) Triglycerides 167(H) <150 mg/dL [facility] Comment:Desirable Triglyceri de: less than 150 mg/dLBorderline High Triglyceride 150-199 mg/dLHigh Triglyceride: 200-499 mg/dLVery High Triglyceride: greater than or equal to 5OO mg/dL Cholesterol 202(H) <200 mg/dL [facility] Comment:Desirable Cholestero l: less than 200 mg/dLBorderline High Cholesterol: 200-239 mg/dLHigh Cholesterol: greater than 239 mg/dL LDL Cholesterol Calculated 131(H) <100 mg/dL [facility] Comment:Desirable LDL: less than 100 mg/dLNear Optimal/Above Optimal LDL: 110- 129 mg/dLBorderline High LDL: 130-159 mg/dLHigh LDL: 160-189 mg/dLVery High LDL: greater than or equal to 190 mg/dL HDL Cholesterol 38(L) >40 mg/dL [facility] Comment:Desirable HDL: great er than 40 mg/dL Note: This HDL assay may give artificially low results in patients with liver disease. Blood Venous blood specimen / Unknown 07/19/2024 10:47 AM EDT 07/19/2024 1:04 PM EDT Renan Aparicio MD LAB BLOOD ORDERABLES Final Result [facility] [address] [place] [address] [phone] * BI Mammogram Screening Tomosynthesis Bilateral (02/19/2024 2:10 PM EDT) Anatomical Region Laterality Modality Breast Bilateral Mammography 02/19/2024 2:10 PM EDT Narrative 03/17/2024 10:25 PM EDT ? [facility] ? [address] ?[place] [address] ? Mammography Report ? Signed ? Patient: Pedersen,Christianne ?MR#: [id number] ?? [id number] ? : 1955 ?Acct:[id number] ? Age/Sex: 68 / F ?ADM Date: 04/12/24 ? Loc: HO.MAMMO ? Attending Dr: Renan Cabral MD ? Ordering Physician: Renan Cabral MD ?Resu ?? lts: 2Benign Findings ? Date of Service: 02/19/24 ?Follow Up: 1 Year From Orig ?? inal Mammogram ? Procedure(s): MM tomosynthesis screening BI ?? Accession Number(s): [id number] ? cc: Renan Cabral MD ? EXAMINATION: ?? MM SCREENING DIGITAL BREAST TOMOSYNTHESIS, BILATERAL ? CLINICAL INFORMATION: ? Screening. Asymptomatic. ? COMPARISON: ?? Mammography: This study is compared with prior exams dating back to ?? 2019. ? TECHNIQUE: ?? Digital breast tomosynthesis is performed in both the craniocaudal and ?? mediolateral oblique views along with computer-aided detection (CAD). ?? Synthesized 2D images are generated from the tomosynthesis. ? FINDINGS: ?? There are scattered areas of fibroglandular density (ACR BI-RADS breast ?? composition Category b). ? There are no significant masses, abnormal calcifications, or other ?? abnormalities. ? Few, unchanged, bilateral, benign calcifications are present in each ?? breast. ? MM/MM tomosynthesis screening BI ?? IMPRESSION: ?? No mammographic evidence of malignancy. ? ASSESSMENT: ? BI-RADS BI-RADS 2 - Benign Findings ? RECOMMENDATION: ?? Routine annual mammography screening. ? 1 year F/U ? This examination should not preclude the clinical evaluation of a ?? suspicious palpable abnormality. ? This patient's information was entered into a reminder system with a ?? target due date for their next mammogram. ? Dictated By: ?Greta Dotson MD ? Signed By: ?<Electronically signed by Greta Dotson MD in OV> ? 03/17/242220 ? DD/ 1410 ? TD/TT: ? Chef Concierge: ? Procedure Note Donotuseinterpreter, Image - 03/17/2024 [place] [facility] [address] [place] [address] Mammography Report Signed Patient: Naa Pedersen EMR#: [id number] : 6Acct:[id number] Age/Sex: 68 / FADM Date: 02/19/24 Loc: DIPTI Attending Dr: Renan Cabral MD Ordering Physician: Renan Cabral MDResu lts: 2Benign Findings Date of Service: 02/19/24Follow Up: 1 Year From Orig inal Mammogram Procedure(s): MM tomosynthesis screening BI Accession Number(s): [id number] cc: Renan Cabral MD EXAMINATION: MM SCREENING DIGITAL BREAST TOMOSYNTHESIS, BILATERAL CLINICAL INFORMATION: Screening. Asymptomatic. COMPARISON: Mammography: This study is compared with prior exams dating back to 2019. TECHNIQUE: Digital breast tomosynthesis is performed in both the craniocaudal and mediolateral oblique views along with computer-aided detection (CAD). Synthesized 2D images are generated from the tomosynthesis. FINDINGS: There are scattered areas of fibroglandular density (ACR BI-RADS breast composition Category b). There are no significant masses, abnormal calcifications, or other abnormalities. Few, unchanged, bilateral, benign calcifications are present in each breast. MM/MM tomosynthesis screening BI IMPRESSION: No mammographic evidence of malignancy. ASSESSMENT: BI-RADS BI-RADS 2 - Benign Findings RECOMMENDATION: Routine annual mammography screening. 1 year F/U This examination should not preclude the clinical evaluation of a suspicious palpable abnormality. This patient's information was entered into a reminder system with a target due date for their next mammogram. Dictated By: Greta Dotson MD Signed By: <Electronically signed by Greta Dotson MD in OV> 03/17/24 2221 DD/ 1410 TD/TT: Chef Concierge: Renan Aparicio MD IMG BI PROCEDURES Robert genia Result - Final * ALBUMIN, RANDOM URINE W/CREATININE (12/19/2021 8:51 AM EST) Microalbumin Urine 3.1 See Note: mg/dL [facility] Comment: Reference Range: ?? Reference Range Not established Microalb/Creat Ratio 29 <30 mcg/mg creat [facility] Comment: ?? The ADA defines abnormalities in albumin excretion as follows: ?? Albuminuria Category ?Result (mcg/mg creatinine) ?? Normal to Mildly increased ?? <30 Moderately increased ? 30-299 ?? Severely increased ? > OR = 300 ?? The ADA recommends that at least two of three specimens collected within a 3-6 month period be abnormal before considering a patient to be within a diagnostic category. Creatinine, Urine 108 20 - 275 mg/dL [facility] 12/19/2021 8:51 AM EST Renan Aparicio MD LAB URINE ORDERABLES Final Result [facility] [address] from Last 3 Months or Most Recently Relevant to Health Maintenance Insurance MEDICARE [facility] STANDARD Care Teams Rougher For [employer] Relationship Specialty Start Date End Date Renan Lawson MD [address] [place] [address] PCP - General Internal Medicine 12/10/21 Richelle Albarado PharmD [address] [place] [address] Pharmacist Internal Medicine 10/25/24
== END 2025-01-09 11:44 | disposition home or self-care (01) ==
PROVIDERS: PCP Internal Medicine; Visit Provider Internal Medicine
DX: R74.01 Elevation of levels of liver transaminase levels (principal); R93.2 Abnormal findings on diagnostic imaging of liver and biliary tract; K22.70 Barrett's esophagus without dysplasia
CPT/HCPCS: 99214; G2211

== ENCOUNTER → 2025-01-09 10:51 | Outpatient (BNVA) | payer MEDICARE, MEDICAID, SELFPAY | PROVIDERS: PCP Internal Medicine; Visit Provider Internal Medicine | DX: Z12.11 Encounter for screening for malignant neoplasm of colon (principal); R79.89 Other specified abnormal findings of blood chemistry; R93.2 Abnormal findings on diagnostic imaging of liver and biliary tract; K22.70 Barrett's esophagus without dysplasia | CPT/HCPCS: 99212 ==

== ENCOUNTER 2025-01-12 13:35 | Outpatient (REF) | payer MEDICARE, MEDICAID, SELFPAY ==
[2025-01-12 14:34] LABS: Hematocrit 38.5 % (37.0-47.0); Mean Corpuscular HGB Conc 31.2 g/dl (31.0-35.0); Mean Corpuscular Hemoglobin 25.6 pg (27.0-33.0); Mean Corpuscular Volume 82.1 fL (80.0-98.0); Mean Platelet Volume 9.8 fL (9.4-12.3); Platelet Count 203 X10*3/uL (160-400); Red Blood Count 4.69 X10*6/uL (4.20-5.50); Red Cell Distribution Width 13.8 % (11.0-16.0); White Blood Count 9.2 X10*3/uL (4.8-10.8)
[2025-01-12 14:41] LABS: Prothrombin Time 11.4 SEC (10.9-12.4)
[2025-01-12 15:27] LABS: Estimated Average Glucose 192 mg/dL; Hemoglobin A1c % 8.3 % (<6.0); Total Hemoglobin (HGBA1C) 3141.2891 umol/L
[2025-01-12 15:34] LABS: Alanine Aminotransferase 41 U/L (0-31); Albumin Level 3.9 g/dL (3.5-5.0); Alkaline Phosphatase 122 U/L (39-117); Anion Gap 14 (12-20); Aspartate Amino Transferase 41 U/L (5-31); Bilirubin Total 0.3 mg/dL (0.0-1.0); Blood Urea Nitrogen 10 mg/dL (9-16); Calcium 8.8 mg/dL (8.4-10.2); Carbon Dioxide 22 mmol/L (22-29); Chloride 107 mmol/L (96-108); Cholesterol 270 mg/dL (<200); Estimated Glomerular Filt Rate > 60; Ferritin 35 ng/mL (10-250); Gamma Glutamyl Transpeptidase 169 U/L (7-33); Glucose Random 297 mg/dL (60-115); HDL Cholesterol 43 mg/dL (>40); Iron 42 mcg/dL (30-160); LDL Cholesterol Calculated 173 mg/dL (<100); Percent Iron Saturation 16 % (15-50); Potassium 3.4 mmol/L (3.3-5.1); Sodium 140 mmol/L (135-145); Total Iron Binding Capacity 256 mcg/dL (228-428); Triglycerides 271 mg/dL (<150); Unsaturated Iron Binding 214 ug/dL
--- OUTSIDE RECORDS SUMMARY | 2025-01-12 16:30 | XMS_ITS | Encounter Summary ---
Author Organization [employer] [facility] Address [address] [place] [address] Care Team Providers Care Medical Coding Manager Name Role Phone Renan Lawson MD Primary Care Provide r Edilberto Barahona PharmD Unavailable [phone] Richelle Albarado PharmD Unavailable [phone] Encounter Details Date Type Department Care Team ([facility] Contact Info) Description 01/13/2023 Abstract [facility] [address] [place], [place] [phone] Renan Lawson MD [address] [place] [address] Social History Tobacco Use Types Packs/Day Years [...] Description 01/23/2025 2:30 PM EDT Medication Management [facility] [place] [address] Richelle [place] [address] 01/26/2025 1:15 PM EDT Office Visit [facility] [place] [address] [place] [address] documented as of this encounter Visit Diagnoses Not on filedocumented in this encounter Additional Health Concerns Assessment Noted Time PHQ-9 Depression Total Score: 0 12/02/19 10:15 AM EST documented as of this encounter Care Teams Medical Coding Manager Relationship Specialty Start Date End [place] [address] PCP - General Internal Medicine 12/10/21 [place]ber[place] [address] Pharmacist Internal Medicine 07/14/23 10/24/24 [place] [address] Pharmacist Internal Medicine 10/25/24 documented as of this encounter
--- OUTSIDE RECORDS SUMMARY | 2025-01-12 16:31 | XMS_ITS | Encounter Summary ---
Author Organization [employer] Address [address] [facility] 7t [place] [address] Care Team Providers Care Foreign Language Teacher Name Role Phone Renan Lawson MD Primary Care Provide r Richelle Albarado PharmD Unavailable [phone] Encounter Details Date Type Department Care Team ([facility] st Contact Info) Description 01/12/2025 Orders Only GENERIC EXTERNAL DATA DEPARTMENT Provider, Generic External Data Social History Tobacco Use Types Packs/Day Years [...] Description 01/23/2025 2:30 PM EDT Medication Management [facility] MEDICINE [address] [place] [phone] Richelle Albarado PharmD [address] [place] [phone] 01/26/2025 1:15 PM EDT Office Visit [facility] MEDICINE [address] [place] [phone] Renan Lawson MD [address] [place], [place] [phone] documented as of this encounter Goals Goal [...] Diabetes mellitus type 2 with neurological manifestations 8.3( 2:04 PM EST) No Barahona, Jerril, PharmD documented as of this encounter Procedures Procedure Name Priority Date/Time Associated Diagnosis Comments IRON AND TOTAL IRON BINDING CAPACITY Routine 01/12/2025 2:04 PM EST PROTHROMBIN TIME-INR Routine 01/12/2025 2:04 PM EST CBC Routine 01/12/2025 2:04 PM EST HEMOGLOBIN A1C Routine 01/12/2025 2:04 PM EST GGT Routine 01/12/2025 2:04 PM EST FERRITIN Routine 01/12/2025 2:04 PM EST LIPID PANEL, STANDARD Routine 01/12/2025 2:04 PM EST COMPREHENSIVE METABOLIC PANEL Routine 01/12/2025 2:04 PM EST documented in this encounter Results * (ABNORMAL) Lipid Panel, Standard (01/12/2025 2:04 PM EST) Triglycerides 271(H) <150 mg/dL [facility] Comment:Desirable Triglyceri de: less than 150 mg/dLBorderline High Triglyceride 150-199 mg/dLHigh Triglyceride: 200-499 mg/dLVery High Triglyceride: greater than or equal to 5OO mg/dL Cholesterol 270(H) <200 mg/dL [facility] Comment:Desirable Cholestero l: less than 200 mg/dLBorderline High Cholesterol: 200-239 mg/dLHigh Cholesterol: greater than 239 mg/dL LDL Cholesterol Calculated 173(H) <100 mg/dL [facility] Comment:Desirable LDL: less than 100 mg/dLNear Optimal/Above Optimal LDL: 110- 129 mg/dLBorderline High LDL: 130-159 mg/dLHigh LDL: 160-189 mg/dLVery High LDL: greater than or equal to 190 mg/dL HDL Cholesterol 43 >40 mg/dL [facility] Comment:Desirable HDL: great er than 40 mg/dL Note: This HDL assay may give artificially low results in patients with liver disease. 01/12/2025 2:04 PM EST 01/12/2025 2:04 PM EST us Generic External Data Provider LAB BLOOD ORDERAB LES Final Result Performing Organization Address [facility] de Phone Number [facility] [address] [place] [phone] * (ABNORMAL) Gamma Glutamyl Transferase (GGT) (01/12/2025 2:04 PM EST) Gamma Glutamyl Transpeptidase 169(H) 7 - 33 U/L [facility] 01/12/2025 2:04 PM EST 01/12/2025 2:04 PM EST us Generic External Data Provider LAB BLOOD ORDERAB LES Final Result Performing Organization Address [facility] Co az Phone Number [facility] [address] [place] [address] [phone] * Ferritin (01/12/2025 2:04 PM EST) Ferritin 35 10 - 250 ng/mL [facility] 01/12/2025 2:04 PM EST 01/12/2025 2:04 PM EST Generic External Data Provider LAB BLOOD ORDERAB LES Final Result Performing Organization Address [facility] Phone Number [facility] [address] [place] [phone] * Iron And Total Iron Binding Capacity (01/12/2025 2:04 PM EST) Iron 42 30 - 160 mcg/dL [facility] Total Iron Binding Capacity 256 228 - 428 mcg/dL [facility] Percent Iron Saturation 16 15 - 50 % [facility] Unsaturated Iron Binding 214 ug/dL [facility] 01/12/2025 2:04 PM EST 01/12/2025 2:04 PM EST us Generic External Data Provider LAB BLOOD ORDERAB LES Final Result Performing Organization Address [facility]/ZIP Co de Phone Number [facility] [address] [place] [address] [phone] * (ABNORMAL) Comprehensive Metabolic Panel (01/12/2025 2:04 PM EST) Sodium 140 135 - 145 mmol/L [facility] Potassium 3.4 3.3 - 5.1 mmol/L [facility] Chloride 107 96 - 108 mmol/L [facility] Carbon Dioxide 22 22 - 29 mmol/L [facility] Anion Gap 14 12 - [address] [facility] Urea Nitrogen (BUN) 10 9 - 16 mg/dL [facility] Creatinine, Serum 0.77 0.5 - 1.4 mg/dL [facility] Estimated Glomerular Filt Rate >[address] [facility] Comment:Chronic Kidney Disea se: Estimated GFR < 60 mL/min/1.91l4Qdpbvu Kidney Disease: Estimated GFR < 15 mL/min/1.73m2 Glucose 297(H) 60 - 115 mg/dL [facility] Calcium 8.8 8.4 - 10.2 mg/dL [facility] Bilirubin, Total 0.3 0.0 - 1.0 mg/dL [facility] Aspartate Amino Transferase 41(H) 5 - 31 U/L [facility] Alanine Aminotransferase 41(H) 0 - 31 U/L [facility] Total Protein 8.0 6.5 - 8.0 g/dL [facility] Albumin Level 3.9 3.5 - 5.0 g/dL [facility] Alkaline Phosphatase 122(H) 39 - 117 U/L [facility] 01/12/2025 2:04 PM EST 01/12/2025 2:04 PM EST us Generic External Data Provider LAB BLOOD ORDERAB LES Final Result Performing Organization Address [facility]/ZIP Co de Phone Number [facility] [address] [place] [phone] * (ABNORMAL) Hemoglobin A1c (01/12/2025 2:04 PM EST) Hemoglobin A1c 8.3(H) <6.0 % [facility] Comment:Hemoglobin A1C Refer ence Range Adults: 4.8 - 6.0 % Non diabetic: < 6.0 % Goal: < 7.0 %Additional Action Suggested: > 8.0 %Note: Hemoglobin A1c results are invalid for patients with abnormal amounts of HbF. Blood transfusions may impact the HbA1c concentration in the patient sample. Estimated Average Glucose 192 mg/dL [facility] Comment:eAG = Estimated ave rage glucose which is %A1C expressed asaverage glucose, using the formula of the W5Q-EsfrpdhXlfvqry Glucose study (ADAG), Diabetes Care, Vol.31,#8,2007 01/12/2025 2:04 PM EST 01/12/2025 2:04 PM EST Generic External Data Provider LAB BLOOD ORDERAB LES Final Result [facility] [address] [place] [address] [phone] * Prothrombin Time-INR (01/12/2025 2:04 PM EST) Prothrombin Time 11.4 10.9 - 12.[address] [facility] INTERNATIONAL NORM RATIO 1.0 0.9 - 1.[address] [facility] Comment:INTERNATIONAL NORMAL IZED RATIO (INR) REFERENCE RANGES Reference RangeFor patients not on anticoagulant therapy: 0.9 - 1.1INR ranges for oral anticoagulanttherapy:For prevention and treatment of venous thrombosis and pulmonary embolism: 2.0 - 3.0For acute myocardial infarction with aspirin therapy: 2.0 - 3.0For acute myocardial infarction without aspirin therapy: 3.0 - 4.0For patients with mechanical prosthetic heart valves: 2.5 - 3.5 01/12/2025 2:04 PM EST 01/12/2025 2:04 PM EST us Generic External Data Provider LAB BLOOD ORDERAB LES Final Result Performing Organization Address [facility]/ZIP Co de Phone Number [facility] [address] [place] [phone] * (ABNORMAL) CBC (01/12/2025 2:04 PM EST) White Blood Count 9.2 4.8 - 10.8 X10*3/uL [facility] Red Blood Count 4.69 4.20 - 5.50 X10*6/uL [facility] Hemoglobin 12.0 12.0 - 16.0 g/dl [facility] Hematocrit 38.5 37.0 - 47.0 % [facility] Mean Corpuscular Volume 82.1 80.0 - 98.[address] [facility] Mean Corpuscular Hemoglobin 25.6(L) 27.0 - 33.[address] [facility] Mean Corpuscular HGB Conc 31.2 31.0 - 35.0 g/dl [facility] Red Cell Distribution Width 13.8 11.0 - 16.0 % [facility] Platelet Count 203 160 - 400 X10*3/uL [facility] Mean Platelet Volume 9.8 9.4 - 12.[address] [facility] NRBC Pct Auto 0.0 0.0 - 0.2 /100WBC [facility] NRBC Abs Auto 0.000 0.0 - 0.012 X10*3/uL [facility] 01/12/2025 2:04 PM EST 01/12/2025 2:04 PM EST us Generic External Data Provider LAB BLOOD ORDERAB LES Final Result Performing Organization Address [facility]/ZIP Co de Phone Number [facility] [address] [place] [phone] documented in this encounter Visit Diagnoses Not on filedocumented in this encounter Additional Health Concerns Assessment Noted Time PHQ-9 Depression Total Score: 6 12/29/19 24 1:36 PM EST documented as of this encounter Care Teams Foreign Language Teacher Relationship Specialty Start Date End Date Renan Lawson MD [address] [place] [address] PCP - General Internal Medicine 12/10/21 Richelle Albarado PharmD [address] [place] [address] Pharmacist Internal Medicine 10/25/24 documented as of this encounter
--- OUTSIDE RECORDS SUMMARY | 2025-01-12 16:31 | XMS_ITS | Encounter Summary ---
Author Organization [facility] Address [address] [facility] 7t [place] [address] Care Team Providers Care Maintenance Scheduler Name Role Phone Renan Lawson MD Primary Care Provide r Edilberto Barahona PharmD Unavailable [phone] Richelle Albarado PharmD Unavailable [phone] Encounter Details Date Type Department Care Team ([facility] Contact Info) Description 11/14/2022 Telephone [facility] MEDICINE [address] [place], [place] [phone] Renan Lawson MD [address] [place] [address] Social History Tobacco Use Types Packs/Day Years [...] Upcoming Encounters Date Type Department Care Team ([facility] Contact Info) Description 01/23/2025 2:30 PM EDT Medication Management [facility] MEDICINE [address] [place] [address] Richelle Albarado PharmD [address] [place] [address] 01/26/2025 1:15 PM EDT Office Visit [facility] MEDICINE [address] [place] [address] [place], [place] [phone] Renan Lawson MD [facility] [place] [address] documented as of this encounter Visit Diagnoses Not on filedocumented in this encounter Care Teams Maintenance Scheduler Relationship Specialty Start Date End Date Renan Lawson MD [facility] [place], [place] [phone] PCP - General Internal Medicine 12/10/21 Edilberto Barahona, KyD [address] [place] [phone] Pharmacist Internal Medicine 07/14/23 10/24/24 Richelle Albarado, KyD [address] [place] [phone] Pharmacist Internal Medicine 10/25/24 documented as of this encounter
--- OUTSIDE RECORDS SUMMARY | 2025-01-12 16:31 | XMS_ITS ---
Author Organization [facility] Address [address] [place] [address] Care Team Providers Care Circulator Name Role Phone Deandre Aparicio MD, Renan Primary Care Provide r Eric Wyman [phone] REASON FOR VISIT Patient presents today for a COLON SCREENING Encounters Encounter Location Date Provider Diagnosis [facility] [address] [place] [phone] 01/28/2024 Eric Emmanuel Plan Of Treatment No Information Progress Notes * COLE BOWLESDOB: (69 yo F)Acc No.[id number]:01/28/2024 Progress Notes Patient:?COLE BOWLES Provider:?Eric Emmanuel MD :1955???Age:68 Y???Sex:Female D ate:01/28/2024 Address:[address] [place] [address] [address] , [id number] Pcp:Renan chavez MD Subjective: * Chief Complaints: * ???1. Patient presents today for a COLON SCREENING. * Medical History:? Objective: * Vitals:? Assessment: Plan: * Treatment: * * The named appointment provid er may or may not be the originator of this progress note, and it is not deemed complete until electronically signed by the appointment provider. Sign off status: Pending * Provider:?Eric Emmanuel MD Date:? 024 Generated for Rebecca valdez/Marco/eTransmitting on:?01/12/2025 04:30 PM EST
--- OUTSIDE RECORDS SUMMARY | 2025-01-12 16:31 | XMS_ITS | Patient Health Record ---
Author Organization [facility] Address [address] [place] [address] Care Team Providers Care Thumb Sewer Name Role Phone Deandre Aparicio MD, Renan Primary Care Provide r Eric Wyman [phone] Reason For Referral No Information Encounters Encounter Location Date Provider Diagnosis [facility] [address] [place] [address] 01/28/2024 Eric Emmanuel Plan Of Treatment No Information Insurance Providers Payer Name Payer Address Payer Phone Subscriber Number Group Number Insured Name Patient Relationship to Insured Coverage Start Date Coverage End Date MED[place] OF [place] [address] [place] [id number] COLE BOWLES Self - patient is the insured MEDICAID OF [facility] [address] [place] [phone] [id number] COLE BOWLES Self - patient is the insured
--- OUTSIDE RECORDS SUMMARY | 2025-01-12 16:31 | XMS_ITS | Encounter Summary ---
Author Organization [employer] Address [address] [facility] 7t [place] [address] Care Team Providers Care Varnish Blender Name Role Phone Renan Lawson MD Primary Care Provide r Edilberto Barahona PharmD Unavailable [phone] Richelle Albarado PharmD Unavailable [phone] Reason for Visit * Reason Comments Med Refill Encounter Details Date Type Department Care Team ([facility] st Contact Info) Description 01/15/2024 Refill [facility] MEDICINE [address] [place], [place] [phone] Shantell Will MD [address] [place], [place] [phone] Fibromyalgia Social History Tobacco Use Types Packs/Day [...] Description 01/23/2025 2:30 PM EDT Medication Management [facility] MEDICINE [address] [place] [address] Richelle Albarado PharmD [address] [place] [phone] 01/26/2025 1:15 PM EDT Office Visit [address] [address] Renan Lawson MD [address] [place], [place] [phone] documented as of this encounter Goals Goal [...] mellitus type 2 with neurological manifestations 8.3( 5 2:04 PM EST) No Edilberto Barahona PharmD documented as of this encounter Visit Diagnoses Diagnosis Fibromyalgia Unspecified myalgia and myositis documented in this encounter Additional Health Concerns Assessment Noted Time PHQ-9 Depression Total Score: 6 12/29/19 24 1:36 PM EST documented as of this encounter Care Teams Varnish Blender Relationship Specialty Start Date End Date Renan Lawson MD [address] [place] [phone] PCP - General Internal Medicine 12/10/21 Edilberto Barahona PharmD [address] [place] [phone] Pharmacist Internal Medicine 07/14/23 10/24/24 Richelle Albarado PharmD [address] [place] [phone] Pharmacist Internal Medicine 10/25/24 documented as of this encounter
--- OUTSIDE RECORDS SUMMARY | 2025-01-12 16:31 | XMS_ITS | Encounter Summary ---
Author Organization [employer] Address [address] [facility] 7t [place] [address] Care Team Providers Care Information Security Associate Name Role Phone Renan Lawson MD Primary Care Provide r Edilberto Barahona PharmD Unavailable [phone] Richelle Albarado PharmD Unavailable [phone] Reason for Visit * Reason Comments Med Refill Encounter Details Date Type Department Care Team ([facility] Contact Info) Description 02/09/2024 Refill [facility] MEDICINE [address] [place], [place] [phone] Renan Lawson MD [address] [place], [place] [phone] Fibromyalgia Social History Tobacco Use Types Packs/Day [...] Medication Management [facility] MEDICINE [address] [place] [phone] Richelle Albarado PharmD [address] [place] [address] 01/26/2025 1:15 PM EDT Office Visit [facility] [address] [place] [address] Renan Lawson MD [address] [place] [address] documented as of this encounter Goals Goal Patient Goal Type Associated Problems Recent Progress Patient-Stated? Author Blood Pressure < 140/90 Blood Pressure 138/89(2023 1:24 PM EST) No Edilberto Barahnoa PharmPercy Blood Pressure < 140/90 Blood Pressure [...] documented as of this encounter Care Teams Information Security Associate Relationship Specialty Start Date End Date Renan Lawson MD [address] [place] [address] PCP - General Internal Medicine 12/10/21 Edilberto Barahona PharmD [address] [place] [address] Pharmacist Internal Medicine 07/14/23 10/24/24 Richelle Albarado PharmD [address] [place] [address] Pharmacist Internal Medicine 10/25/24 documented as of this encounter
--- OUTSIDE RECORDS SUMMARY | 2025-01-12 16:31 | XMS_ITS | Encounter Summary ---
Author Organization [employer] Address [address] [facility] 7t [place] [address] Care Team Providers Care Rig Supervisor Name Role Phone Renan Lawson MD Primary Care Provide r Edilberto Barahona PharmD Unavailable [phone] Richelle Albarado PharmD Unavailable [phone] Reason for Visit * Reason Onset Date Comments Appointment Request 08/26/2023 Encounter Details Date Type Department Care Team ([facility] st Contact Info) Description 08/26/2023 Telephone [facility] MEDICINE [address] [place], [place] [phone] Renan Lawson MD [address] [place], [place] [phone] Appointment Request Social History Tobacco Use Types [...] Description 01/23/2025 2:30 PM EDT Medication Management [facility] MEDICINE [address] [place] [address] Richelle Albarado PharmD [address] [place] [address] 01/26/2025 1:15 PM EDT Office Visit [facility] MEDICINE [address] [place] [address] Renan Lawson MD [address] [place] [address] documented as of this encounter Goals Goal [...] neurological manifestations 8.3( 2:04 PM EST) No Edilberto Barahona PharmD documented as of this encounter Visit Diagnoses Not on filedocumented in this encounter Additional Health Concerns Assessment Noted Time PHQ-9 Depression Total Score: 0 12/02/19 23 10:15 AM EST documented as of this encounter Care Teams Rig Supervisor Relationship Specialty Start Date End Date Renan Lawson MD [address] [place] [address] PCP - General Internal Medicine 12/10/21 Edilberto Barahona PharmD [address] [place] [address] Pharmacist Internal Medicine 07/14/23 10/24/24 Richelle Albarado PharmD [address] [place] [address] Pharmacist Internal Medicine 10/25/24 documented as of this encounter
--- OUTSIDE RECORDS SUMMARY | 2025-01-12 16:31 | XMS_ITS ---
Author Organization [facility] Address [address] [place] [address] Care Team Providers Care Manufacturing Inspector Name Role Phone Deandre Aparicio MD, Renan Primary Care Provide r Unavailable Eric Emmanuel [phone] REASON FOR VISIT Pt no show Encounters Encounter Location Date Provider Diagnosis [facility] [address] [place] [address] 01/28/2024 Eric Emmanuel Plan Of Treatment No Information Progress Notes * BOWLES COLEDOB: (68 yo F)Acc No.[id number]:01/28/2024 Patient:?COLE BOWLES :1955???Age:68 Y???Sex:Female Address:[address] [place] [address] [address] , [place] * true * Date:? Generated for Rebecca valdez/Marco/eTransmitting on:?01/12/2025 04:31 PM EST
--- OUTSIDE RECORDS SUMMARY | 2025-01-12 16:31 | XMS_ITS | Encounter Summary ---
Author Organization [employer] [facility] Address [address] [facility] 7t [place] [address] Care Team Providers Care Tapeman Name Role Phone Reann Lawson MD Primary Care Provide r Richelle Albarado PharmD Unavailable [phone] Reason for Visit * Reason Comments Med Refill Encounter Details Date Type Department Care Team ([facility] Contact Info) Description 12/28/2024 Refill [facility] MEDICINE [address] [place], [place] [phone] Renan Lawson MD [address] [place], [place] [phone] Social History Tobacco Use Types Packs/Day Years [...] 2:30 PM EDT Medication Management [facility] MEDICINE [address] [place] [address] Richelle Albarado PharmD [address] [place] [address] 01/26/2025 1:15 PM EDT Office Visit [facility] MEDICINE [address] [place] [phone] Renan Lawson MD [address] [place] [address] documented as of this encounter Goals Goal [...] documented as of this encounter Care Teams Tapeman Relationship Specialty Start Date End Date Renan Lawson MD [address] [place] [address] PCP - General Internal Medicine 12/10/21 Richelle Albarado PharmD [address] [place] [address] Pharmacist Internal Medicine 10/25/24 documented as of this encounter
--- OUTSIDE RECORDS SUMMARY | 2025-01-12 16:31 | XMS_ITS | Encounter Summary ---
Author Organization [employer] Address [address] [facility] 7t [place] [address] Care Team Providers Care Perfumer Name Role Phone Renan Lawson MD Primary Care Provide r Edilberto Barahona PharmD Unavailable [phone] Richelle Albarado PharmD Unavailable [phone] Reason for Visit * Reason Onset Date Comments Reschedule 05/20/2023 Encounter Details Date Type Department Care Team ([facility] st Contact Info) Description 05/20/2023 Telephone [facility] MEDICINE [address] [place], [place] [phone] Renan Lawson MD [address] [place], [place] [phone] Reschedule Social History Tobacco Use Types Packs/Day [...] knee injection appointment. Please contact pt at [phone] (Malay speaker) documented in this encounter Plan of Treatment Upcoming Encounters Date Type Department Care Team (Late st Contact Info) Description 01/23/2025 2:30 PM EDT Medication Management [facility] MEDICINE [address] [place] [address] Richelle Albarado PharmD [address] [place] [address] 01/26/2025 1:15 PM EDT Office Visit [facility] MEDICINE [address] [place] [phone] Renan Lawson MD [address] [place] [address] documented as of this encounter Goals Goal [...] documented as of this encounter Care Teams Perfumer Relationship Specialty Start Date End Date Renan Lawson MD [address] [place] [address] [phone] PCP - General Internal Medicine 12/10/21 Edilberto Barahona PharmD [address] [place] [address] [phone] Pharmacist Internal Medicine 07/14/23 10/24/24 Richelle Albarado, KyD [address] [place] [phone] Pharmacist Internal Medicine 10/25/24 documented as of this encounter
--- OUTSIDE RECORDS SUMMARY | 2025-01-12 16:31 | XMS_ITS | Encounter Summary ---
Author Organization [employer] Address 75 [facility] 7t [place] [address] Care Team Providers Care Color Expert Name Role Phone Renan Lawson MD Primary Care Provide r Richelle Albarado PharmD Unavailable [phone] Reason for Visit * Reason Onset Date Comments Paperwork/Forms 10/31/2024 Encounter Details Date Type Department Care Team ([facility] st Contact Info) Description 10/31/2024 Telephone [facility] [address] [place], [place] [phone] Britni Brink, RN [address] [place] [address] Paperwork/Forms Social History Tobacco Use Types Packs/Day [...] Medication Management [facility] MED[facility]INE [address] [place] [address] [phone] Richelle Albarado PharmD [address] [place] [address] [phone] 01/26/2025 1:15 PM EDT Office Visit [facility] [address] [place] [address] [phone] Renan Lawson MD [address] [place], [place] [phone] documented as of this encounter Goals Goal [...] 8.3( 2:04 PM EST) No Edilberto Barahona PharmPercy documented as of this encounter Visit Diagnoses Not on filedocumented in this encounter Additional Health Concerns Assessment Noted Time PHQ-9 Depression Total Score: 6 12/29/19 24 1:36 PM EST documented as of this encounter Care Teams Color Expert Relationship Specialty Start Date End Date Renan Lawson MD [address] [place] [address] PCP - General Internal Medicine 12/10/21 Richelle Albarado PharmD [address] [place] [address] Pharmacist Internal Medicine 10/25/24 documented as of this encounter
--- OUTSIDE RECORDS SUMMARY | 2025-01-12 16:31 | XMS_ITS | Encounter Summary ---
Author Organization [employer] Address 75 [facility] 7t [place] [address] Care Team Providers Care Grading Clerk Name Role Phone Renan Lawson MD Primary Care Provide r Richelle Albarado PharmD Unavailable [phone] Reason for Visit * Reason Comments Med Refill Encounter Details Date Type Department Care Team ([facility] st Contact Info) Description 11/29/2024 Refill [facility] MED[facility]INE [address] [place], [place] [phone] Edilberto Barahona, PharmD [address] [place] [address] Diabetes mellitus type 2 with neurological manifestations [...] Description 01/23/2025 2:30 PM EDT Medication Management [facility] MED[facility] [address] [place] [phone] Richelle Albarado PharmD [address] [place] [address] 01/26/2025 1:15 PM EDT Office Visit [facility] [address] [place] [address] Renan Lawson MD [address] [place] [address] documented as of this encounter Goals Goal [...] documented as of this encounter Care Teams Grading Clerk Relationship Specialty Start Date End Date Renan Lawson MD [address] [place] [address] PCP - General Internal Medicine 12/10/21 Richelle Albarado PharmD [address] [place] [address] Pharmacist Internal Medicine 10/25/24 documented as of this encounter
--- OUTSIDE RECORDS SUMMARY | 2025-01-12 16:31 | XMS_ITS | Encounter Summary ---
Author Organization [employer] [facility] Address 75 [facility] 7t [place] [address] Care Team Providers Care Disability Program Navigator Name Role Phone Renan Lawson MD Primary Care Provide r Edilberto Barahona PharmD Unavailable [phone] Richelle Albarado PharmD Unavailable [phone] Encounter Details Date Type Department Care Team ([facility] Contact Info) Description 12/17/2022 Abstract [facility] MEDICINE 230 [place], [place] [phone] Renan Lawson MD 230 [place] [address] Social History Tobacco Use Types Packs/Day Years [...] Description 01/23/2025 2:30 PM EDT Medication Management [facility] [place] [address] Richelle [place] [address] 01/26/2025 1:15 PM EDT Office Visit [facility] [place] [address] [place] [address] documented as of this encounter Visit Diagnoses Not on filedocumented in this encounter Additional Health Concerns Assessment Noted Time PHQ-9 Depression Total Score: 0 12/02/19 10:15 AM EST documented as of this encounter Care Teams Disability Program Navigator Relationship Specialty Start Date End [place] [address] PCP - General Internal Medicine 12/10/21 [place] [address] Pharmacist Internal Medicine 07/14/23 10/24/24 [place] [address] Pharmacist Internal Medicine 10/25/24 documented as of this encounter
--- OUTSIDE RECORDS SUMMARY | 2025-01-12 16:31 | XMS_ITS | Encounter Summary ---
Author Organization [employer] Address 75 [facility] 7t [place] [address] Care Team Providers Care Rotary Peel Oven Tender Name Role Phone Renan Lawson MD Primary Care Provide r Edilberto Barahona PharmD Unavailable [phone] Richelle Albarado PharmD Unavailable [phone] Encounter Details Date Type Department Care Team (Late Contact Info) Description 10/22/2022 Orders Only [facility] MED & PEDS [address] [place] [address] Denise Leyva LPN Social History Tobacco Use [...] Description 01/23/2025 2:30 PM EDT Medication Management [facility] MEDICINE [address] [place] [phone] Richelle Albarado PharmD [address] [place] [address] 01/26/2025 1:15 PM EDT Office Visit [facility] MEDICINE [address] [place] [phone] Renan Lawson MD [address] [place] [address] documented as of this encounter Visit Diagnoses Not on filedocumented in this encounter Care Teams Rotary Peel Oven Tender Relationship Specialty Start Date End Date Renan Lawson MD [address] [place] [address] PCP - General Internal Medicine 12/10/21 Edilberto Barahona, KyD [address] [place] [address] Pharmacist Internal Medicine 07/14/23 10/24/24 Richelle Albarado, KyD [address] [place] [address] Pharmacist Internal Medicine 10/25/24 documented as of this encounter
--- OUTSIDE RECORDS SUMMARY | 2025-01-12 16:31 | XMS_ITS | Encounter Summary ---
Author Organization [employer] Address 75 [facility] 7t [place] [address] Care Team Providers Care Resident Hall Director Name Role Phone Renan Lawson MD Primary Care Provide r Edilberto Barahona PharmD Unavailable [phone] Richelle Albarado PharmD Unavailable [phone] Reason for Referral * Imaging (Routine) - Closed Specialty Diagnoses / Procedures Referred By Contac t Referred To Contact Radiology Diagnoses Right lower quadrant abdominal pain Procedures US Pelvis Transvaginal Moira Edouard FNP [address] [place] [address] Phone: tel: fax: [address] Phone: tel: fax: Referral ID Status Reason Start Date Expiration Date Visits Re quested Visits Authorized [id number] Closed 08/07/2023 08/06/2024 1 1 Encounter Details Date Type Department Care Team (Late st Contact Info) Description 08/07/2023 Orders Only [facility] [address] [place] [address] Moira Edouard FNP [address] [place] [address] Right lower quadrant abdominal pain (Primary Dx) [...] 2:30 PM EDT Medication Management [facility] MEDICINE [address] [place] [address] Richelle Albarado PharmD [address] [place] [address] 01/26/2025 1:15 PM EDT Office Visit [facility] [address] [place] [address] Renan Lawson MD [address] [place], [place] [phone] documented as of this encounter Goals Goal [...] EST Narrative 10/08/2023 5:03 PM EST ? [facility] ?[address] ?[place] [address] ? Ultrasound Report ? Signed ? Patient: Naa Pedersen ?MR#: [id number] ?? [id number] ? : 1955 ?Acct:[id number] ? Age/Sex: 67 / F ?ADM Date: 10/07/23 ? Loc: HO.US ? Attending Dr: Moira Edouard NP ? Ordering Physician: Moira Edouard NP ?? Date of Service: 10/07/23 ?? Procedure(s): US pelvic and transvaginal ?? Accession Number(s): [id number] ? cc: Moira Edouard NP; Renan Cabral MD ? EXAMINATION: ? [...] by Lynette Underwood MD in OV> ? 10/08/23 1659 ? DD/ 1146 ? TD/TT: ? Painter Set: ? Procedure Note Donotmary anneter, Image - 10/08/[address] [address] Ultrasound Report Signed Patient: Naa Pedersen EMR#: [id number] : 6Acct:[id number] Age/Sex: 67 / FADM Date: 10/07/23 Loc: HO.US Attending Dr: Moira Edouard NP Ordering Physician: Moira Edouard NP Date of Service: 10/07/23 Procedure(s): US pelvic and transvaginal Accession Number(s): [id number] cc: Moira Edouard NP; Renan Cabral MD [...] in OV> 10/08/23 1659 DD/ 1146 TD/TT: Painter Set: us Moira Edouard INSOLVENCY PRACTITIONER IMG US PROCEDURES Final Result documented in this encounter Visit Diagnoses Diagnosis Right lower quadrant abdominal pain- Primary documented in this encounter Additional Health Concerns Assessment Noted Time PHQ-9 Depression Total Score: 0 12/02/19 10:15 AM EST documented as of this encounter Care Teams Resident Hall Director Relationship Specialty Start Date End Date Renan Lawson MD [address] [place] [address] PCP - General Internal Medicine 12/10/21 Edilberto Barahona PharmD [address] [place] [address] Pharmacist Internal Medicine 07/14/23 10/24/24 Richelle Albarado PharmD [address] [place] [address] Pharmacist Internal Medicine 10/25/24 documented as of this encounter
--- OUTSIDE RECORDS SUMMARY | 2025-01-12 16:31 | XMS_ITS | Encounter Summary ---
Author Organization [employer] Address 75 [facility] 7t [place] [address] Care Team Providers Care Medieval English Literature Professor Name Role Phone Renan Lawson MD Primary Care Provide r Richelle Albarado PharmD Unavailable [phone] Reason for Visit * Reason Comments Med Refill Encounter Details Date Type Department Care Team ([facility] st Contact Info) Description 12/29/2024 Refill [facility] CHC MED & PEDS [address] [place], [place] [phone] Renan Lawson MD [address] [place] [address] Fibromyalgia Social History Tobacco Use Types Packs/Day [...] [facility] MEDICINE [address] [place] [address] Richelle Albarado PharmD [address] [place] [address] 01/26/2025 1:15 PM EDT Office Visit [facility] MEDICINE [address] [place] [address] Renan Lawson MD [address] [place] [phone] documented as of this encounter Goals Goal [...] documented as of this encounter Care Teams Medieval English Literature Professor Relationship Specialty Start Date End Date Renan Lawson MD [address] [place] [address] PCP - General Internal Medicine 12/10/21 Ricehlle Albarado PharmD [address] [place] [address] Pharmacist Internal Medicine 10/25/24 documented as of this encounter
--- OUTSIDE RECORDS SUMMARY | 2025-01-12 16:31 | XMS_ITS | Encounter Summary ---
Author Organization [employer] Address 75 [facility] 7t [place] [address] Care Team Providers Care Foundry Worker Apprentice Name Role Phone Renan Lawson MD Primary Care Provide r Richelle Albarado PharmD Unavailable [phone] Reason for Visit * Reason Comments Med Refill Encounter Details Date Type Department Care Team ([facility] st Contact Info) Description 12/27/2024 Refill [facility] MEDICINE [address] [place], [place] [phone] Renan Lawson MD [address] [place], [place] [phone] Primary hypertension; Diabetes mellitus type 2 with [...] 2:30 PM EDT Medication Management [facility] MEDICINE [address] [place] [address] Richelle Albarado PharmD [address] [place] [address] 01/26/2025 1:15 PM EDT Office Visit [facility] MEDICINE [address] [place] [address] Renan Lawson MD [address] [place] [address] documented as of this encounter Goals Goal [...] documented as of this encounter Care Teams Foundry Worker Apprentice Relationship Specialty Start Date End Date Renan Lawson MD [address] [place] [address] PCP - General Internal Medicine 12/10/21 Richelle Albarado PharmD [address] [place] [address] Pharmacist Internal Medicine 10/25/24 documented as of this encounter
--- OUTSIDE RECORDS SUMMARY | 2025-01-12 16:32 | XMS_ITS | Clinical Summary ---
Author Organization [employer] Address [address] [facility] 7t [place] [address] Care Team Providers Care Diet Aid Name Role Phone Renan Lawson MD Primary Care Provide r Richelle Albarado PharmD Unavailable [phone] Allergies Active Allergy Reactions Criticality Noted Date [...] 024 Active Blood Glucose Monitoring Suppl (FreeStyle [place] Lite) w/Device kit USE DIRECTED TO TEST [...] 2 each 024 2024 Active Continuous Glucose Technical Specialist Cytology (FreeStyle Richard 3 [place]) deviceIndication s:Diabetes mellitus type 2 with neurological [...] trigger notification to Pharmacy)) Continuous Blood Gluc Technical Specialist Cytology (FreeStyle Richard 2 [place]) device 1 each every 8 (eight) hours. [...] at home monitoring and current therapy - [facility] to check on status of Freestyle [...] Pt was seen by an orthopaedist at [facility]. [facility] care 12/02/2022 Overview (09/07/2023): Continues to use [...] for a HDF, She [place] [facility] [place] She presented with syncope with [...] acute finding. Pt was seen by her Automation Application Engineer Dr Freeman and is currently wearing an [...] atorvastatin, Zetia and Praluent. Last seen by Automation Application Engineer Dr Freeman 07/2024 Assessment & Plan (09/15/2023 [...] Patient under the care of [facility], last seen 07/29/2024 Currently on Ventolin , uses albuterol nebulizarions as well. Dr Carson stopped her other inhalers Assessment & Plan (09/15/2023 3:23 PM EST): Patient under the care of [facility], last seen April Currently on Ventolin and Breztri Aerosphere , uses albuterol nebulizarions as well Assessment & Plan (12/02/2022 8:52 AM EST): Patient under the care of [facility], last seen January 2022 Currently on Ventolin [...] PM EST): Pt under the care of Woodyard Operator at [facility] , last seen 10/2023 Currently on a regimen of Dexilant 60 mg po daily and Omeprazole 40 mg po daily Assessment & Plan (12/02/2022 8:52 AM EST): Pt under the care of Woodyard Operator at [facility] Currently on a regimen of Dexilant 60 [...] (05/04/2023 3:40 PM EDT): - Freestyle Richard [place] and Sensor Ordered - A1c is not [...] found on MRI of lower back at [facility] in 2008, unchanged 2009. Sl enlarged 2013. Ref uro Davis's esophagus 01/03/2013 Overview (12/02/2022): Last EGD - Dr. Parviz Sommers, [facility] 01.06.2020 Assessment & Plan (09/29/2024 2:39 PM [...] daily History: - followed by Nixon's office [facility] Cardiology Assessment & Plan (09/29/2024 12:59 PM [...] is being followed by Dr. Jarod Angelo ([address] ). She is now under the care of the Pain Clinic at [facility] Re cent x-ray ordered by them 12/22/2023 [...] is being followed by Dr. Jarod Angelo ([address] ). She is now under the care of the Pain Clinic at [facility] Re cent x-ray ordered by them 12/22/2023 [...] request records from most recent MRI at [facility] pt is being followed by Dr. Jarod Angelo ([address] [facility] ). Depressive disorder 11/09/1959 Assessment & Plan (12/23/2022 2:42 PM EST): Patient under the care of psychiatrist at [facility] Currently on a regimen of: Clonazepam 0.5 mg po BID PRN, Trazodone 100 mg po qhs and Mirtazapine 45 mg po at bedtime Pt reports she has agoraphobia and cannot attend Jury Duty She is requesting a letter that due to the fact that she does not speak polish and has a psychiatric condition that causes her extreme anxiety when she is surrounded by people, she cannot attend Jury duty Assessment & Plan (12/02/2022 8:44 AM EST): Patient under the care of psychiatrist at [facility] Currently on a regimen of: Clonazepam 0.5 [...] Encounters Date Type Department Care Team Description 01/12/2025 Orders Only GENERIC EXTERNAL DATA DEPARTMENT Provider, Generic External Data 12/29/2024 Refill [facility] [address] [place], [place] [phone] Renan Lawson MD Fibromyalgia 12/28/2024 Refill [facility] [address] [place] [address] Renan Lawson MD 12/27/2024 Refill [facility] [address] [place] [address] Renan Lawson MD Primary hypertension; 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); Type 2 diabetes mellitus without complication, without long-term current use of insulin ([facility]) 12/01/2024 Refill [facility] [address] [place] [address] Ashtyn Dill NP Primary hypertension 11/29/2024 Refill [facility] [address] [place] [address] Edilberto Barahona, Toni Diabetes mellitus type 2 with neurological manifestations ([facility]) 11/29/2024 Travel 11/29/2024 Refill [facility] [address] [place], [place] [phone] Renan Lawson MD Mixed hyperlipidemia; Fibromyalgia 11/21/2024 Refill [facility] [address] [place], [place] [phone] Renan Lawson MD Primary hypertension; Mixed hyperlipidemia; Seasonal allergies 10/31/2024 Telephone [facility] [address], [place] [phone] Britni Brink, MILES Paperwork/Forms from Last 3 Months Immunizations Name [...] Description 01/23/2025 2:30 PM EDT Medication Management [facility] [address] [place] [phone] Richelle Albarado, PharmD [address] [place] [address] 01/26/2025 1:15 PM EDT Office Visit [facility] [address] [place] [phone] Renan Lawson MD [address] [place], [place] [phone] Health Maintenance Due Date Last Done Comments [...] 3 - 19+ 3-dose series) 11/21/2024 10/24/2024 SDOH Screening 12/18/2024 12/18/2023 Depression Screening 12/29/2024 12/29/2023, 12/29/19 24 Mammogram 02/18/2025 02/19/2024, 03/14/2022 Diabetes: Hemoglobin A1C 04/14/2025 025, 09/09/2024, 07/07/2024, Additional history exists Alcohol/Substance Use Screening 09/29/2025 09/29/2024 Tobacco Screening 09/29/2025 09/29/2024 Eye Exam 12/18/2025 12/18/2023 Lipid Panel 01/12/2026 01/12/2025, 07/10, 05/19/2023, Additional history exists DTaP/Tdap/Td Vaccines (3 - Td or Tdap) [...] Hypertension 138/89(2023 1:24 PM EST) No Edilberto Barahona, Toni Keep fasting blood glucose between 70 and 130 Result Component No Edilberto Barahona PharmD Keep fasting blood glucose between 70 and 130 Result Component Diabetes mellitus type 2 with neurological manifestations On track( 023 2:54 PM EDT) No Edilberto Barahona PharmD Hemoglobin A1c < 7.0 Result Component Diabetes mellitus type 2 with neurological manifestations 8.3( 2:04 PM EST) No Edilberto Barahona PharmD Procedures Procedure Name Priority Date/Time Associated Diagnosis Comments LIPID PANEL, STANDARD Routine 01/12/2025 2:04 PM EST GGT Routine 01/12/2025 2:04 PM EST FERRITIN Routine 01/12/2025 2:04 PM EST IRON AND TOTAL IRON BINDING CAPACITY Routine 01/12/2025 2:04 PM EST COMPREHENSIVE METABOLIC PANEL Routine 01/12/2025 2:04 PM EST HEMOGLOBIN A1C Routine 01/12/2025 2:04 PM EST PROTHROMBIN TIME-INR Routine 01/12/2025 2:04 PM EST CBC Routine 01/12/2025 2:[address] CHEST WO CONTRAST Routine 11/14/2024 10:23 AM EST Right middle lobe pulmonary nodule BI MAMMOGRAM SCREENING TOMOSYNTHESIS BILATERAL Routine 02/19/2024 2:10 PM EDT ALBUMIN, RANDOM URINE W/CREATININE Routine 12/19/2021 8:51 AM EST from Last 3 Months or Most Recently Relevant to Health Maintenance Results * Iron And Total Iron Binding Capacity (01/12/2025 2:04 PM EST) Iron 42 30 - 160 mcg/dL [facility] Total Iron Binding Capacity 256 228 - 428 mcg/dL [facility] Percent Iron Saturation 16 15 - 50 % [facility] Unsaturated Iron Binding 214 ug/dL [facility] 01/12/2025 2:04 PM EST 01/12/2025 2:04 PM EST Generic External Data Provider LAB BLOOD ORDERAB LES Final Result Performing Organization Address [facility] Co de Phone Number [facility] [address] [place] [phone] * Prothrombin Time-INR (01/12/2025 2:04 PM EST) Prothrombin Time 11.4 10.9 - 12.4 SEC [facility] INTERNATIONAL NORM RATIO 1.0 0.9 - 1.1 [facility] Comment:INTERNATIONAL NORMAL IZED RATIO (INR) [...] ORDERAB LES Final Result Performing Organization Address [facility] Co de Phone Number [facility] [address] [place] [phone] * (ABNORMAL) CBC (01/12/2025 2:04 PM EST) White Blood Count 9.2 4.8 - 10.8 X10*3/uL [facility] Red Blood Count 4.69 4.20 - 5.50 X10*6/uL [facility] Hemoglobin 12.0 12.0 - 16.0 g/dl [facility] Hematocrit 38.5 37.0 - 47.0 % [facility] Mean Corpuscular Volume 82.1 80.0 - 98.0 fL [facility] Mean Corpuscular Hemoglobin 25.6(L) 27.0 - 33.0 pg [facility] Mean Corpuscular HGB Conc 31.2 31.0 - 35.0 g/dl [facility] Red Cell Distribution Width 13.8 11.0 - 16.0 % [facility] Platelet Count 203 160 - 400 X10*3/uL [facility] Mean Platelet Volume 9.8 9.4 - 12.3 fL [facility] NRBC Pct Auto 0.0 0.0 - 0.2 /100WBC [facility] NRBC Abs Auto 0.000 0.0 - 0.012 X10*3/uL [facility] 01/12/2025 2:04 PM EST 01/12/2025 2:04 PM EST us Generic External Data Provider LAB BLOOD ORDERAB LES Final Result [facility] [address] [place] [phone] * (ABNORMAL) Hemoglobin A1c (01/12/2025 2:04 PM EST) Hemoglobin A1c 8.3(H) <6.0 % [facility] Comment:Hemoglobin A1C Refer ence Range Adults: 4.8 - 6.0 % Non diabetic: < 6.0 % Goal: < 7.0 %Additional Action Suggested: > 8.0 %Note: Hemoglobin A1c results are invalid for patients with abnormal amounts of HbF. Blood transfusions may impact the HbA1c concentration in the patient sample. Estimated Average Glucose 192 mg/dL [facility] Comment:eAG = Estimated ave rage glucose which is %A1C expressed asaverage glucose, using the formula of the R5V-BalekxdUszfnar Glucose study (ADAG), Diabetes Care, Vol.31,#8,Jun. 2007 01/12/2025 2:04 PM EST 01/12/2025 2:04 PM EST us Generic External Data Provider LAB BLOOD ORDERAB LES Final Result Performing Organization Address [facility] Co de Phone Number [facility] [address] [place] [phone] * (ABNORMAL) Gamma Glutamyl Transferase (GGT) (01/12/2025 2:04 PM EST) Gamma Glutamyl Transpeptidase 169(H) 7 - 33 U/L [facility] 01/12/2025 2:04 PM EST 01/12/2025 2:04 PM EST Generic External Data Provider LAB BLOOD ORDERAB LES Final Result Performing Organization Address [facility] Co ms Phone Number [facility] [address] [place] [phone] * Ferritin (01/12/2025 2:04 PM EST) Pathologist [facility] Ferritin 35 10 - 250 ng/mL [facility] 01/12/2025 2:04 PM EST 01/12/2025 2:04 PM EST Generic External Data Provider LAB BLOOD ORDERAB LES Final Result Performing Organization Address [facility] Co ms Phone Number [facility] [address] [place] [phone] * (ABNORMAL) Lipid Panel, Standard (01/12/2025 2:04 PM EST) Triglycerides 271(H) <150 mg/dL [facility] Comment:Desirable Triglyceri de: less than 150 mg/dLBorderline High Triglyceride 150-199 mg/dLHigh Triglyceride: 200-499 mg/dLVery High Triglyceride: greater than or equal to 5OO mg/dL Cholesterol 270(H) <200 mg/dL [facility] Comment:Desirable Cholestero l: less than 200 mg/dLBorderline High Cholesterol: 200-239 mg/dLHigh Cholesterol: greater than 239 mg/dL LDL Cholesterol Calculated 173(H) <100 mg/dL [facility] Comment:Desirable LDL: less than 100 mg/dLNear Optimal/Above Optimal LDL: 110- 129 mg/dLBorderline High LDL: 130-159 mg/dLHigh LDL: 160-189 mg/dLVery High LDL: greater than or equal to 190 mg/dL HDL Cholesterol 43 >40 mg/dL [facility] Comment:Desirable HDL: great er than 40 mg/dL Note: This HDL assay may give artificially low results in patients with liver disease. 01/12/2025 2:04 PM EST 01/12/2025 2:04 PM EST us Generic External Data Provider LAB BLOOD ORDERAB LES Final Result [facility] [address] [place] [phone] * (ABNORMAL) Comprehensive Metabolic Panel (01/12/2025 2:04 PM EST) Sodium 140 135 - 145 mmol/L [facility] Potassium 3.4 3.3 - 5.1 mmol/L [facility] Chloride 107 96 - 108 mmol/L [facility] Carbon Dioxide 22 22 - 29 mmol/L [facility] Anion Gap 14 12 - 20 [facility] Urea Nitrogen (BUN) 10 9 - 16 mg/dL [facility] Creatinine, Serum 0.77 0.5 - 1.4 mg/dL [facility] Estimated Glomerular Filt Rate >60 [facility] Comment:Chronic Kidney Disea se: Estimated GFR < 60 mL/min/1.42l3Xhkidn Kidney Disease: Estimated GFR < 15 mL/min/1.73m2 Glucose 297(H) 60 - 115 mg/dL [facility] Calcium 8.8 8.4 - 10.2 mg/dL [facility] Bilirubin, Total 0.3 0.0 - 1.0 mg/dL [facility] Aspartate Amino Transferase 41(H) 5 - 31 U/L [facility] Alanine Aminotransferase 41(H) 0 - 31 U/L [facility] Total Protein 8.0 6.5 - 8.0 g/dL [facility] Albumin Level 3.9 3.5 - 5.0 g/dL [facility] Alkaline Phosphatase 122(H) 39 - 117 U/L [facility] 01/12/2025 2:04 PM EST 01/12/2025 2:04 PM EST us Generic External Data Provider LAB BLOOD ORDERAB LES Final Result [facility] [address] [place] [phone] * CT Chest w/o Contrast (11/14/2024 10:23 AM EST) Anatomical Region Laterality Modality Body, Chest Computed Tomogra phy 11/14/2024 10:2 3 AM EST Narrative 11/14/2024 10:25 AM EST ? [facility] ?[address] ?[place] [address] ? CT Scan Report ? Signed ? Patient: Naa Pedersen ?MR#: [id number] ?? [id number] ? : 1955 ?Acct:[id number] ? Age/Sex: 68 / F ?ADM Date: 11/11/24 ? Loc: HO.CT ? Attending Dr: Renan Cabral MD ? Ordering Physician: Renan Cabral MD ?? Date of Service: 11/11/24 ?? Procedure(s): CT chest wo IV con ?? Accession Number(s): [id number] ? cc: Renan Cabral MD ? Report Number: ?? [id number]: Total DLP = ??198.00 mGy-cm ? CLINICAL [...] full article can be viewed at: ?? https://goo.gl/Amilcar ? Follow up strategies in solid nodules [...] calculator of estimated risk is available at: https://goo.gl/Keke ? ##PFU## ? This document has been electronically signed by: Maggie Marina MD on ?? 11/14/2024 10:23:45 ? Dictated By: ?Maggie Marina MD ? Signed By: ?<Electronically signed by Maggie Marina MD in OV> ? 11/14/24 1025 ? DD/ 1023 ? TD/TT: 11/14/24 1023 ? Rivet Maker: ? Procedure Note [place] - 11/14/[address] [address] [address] Scan Report Signed Patient: Naa Pedersen EMR#: [id number] : 6Acct:[id number] Age/Sex: 68 / FADM Date: 11/11/24 Loc: HO.CT Attending Dr: Renan Cabral MD Ordering Physician: Renan Cabral MD Date of Service: 11/11/24 Procedure(s): CT chest wo IV con Accession Number(s): [id number] cc: Renan Cabral MD Report Number: [id number]: Total DLP = 198.00 mGy-cm CLINICAL HISTORY: [...] The full article can be viewed at: https://goo.gl/emmCELESTINOK Follow up strategies in solid nodules vary [...] 11/14/24 1025 DD/ 1023 TD/TT: 11/14/24 1023 Rivet Maker: us Renan Aparicio MD IMG CT PROCEDURES Robert genia Result - Final * BI Mammogram Screening Tomosynthesis Bilateral (02/19/2024 2:10 PM EDT) Anatomical Region Laterality Modality Breast Bilateral Mammography 02/19/2024 2:10 PM EDT Narrative 03/17/2024 10:25 PM EDT ? [facility] ? [address] ?[place] [address] ? Mammography Report ? Signed ? Patient: Naa Pedersen ?MR#: [id number] ?? [id number] ? : 1955 ?Acct:[id number] ? Age/Sex: 68 / F ?ADM Date: 02/19/24 ? Loc: HO.MAMMO ? Attending Dr: Renan Cabral MD ? Ordering Physician: Renan Cabral MD ?Resu ?? lts: 2Benign Findings ? Date of Service: 02/19/24 ?Follow Up: 1 Year From Orig ?? inal Mammogram ? Procedure(s): MM tomosynthesis screening BI ?? Accession Number(s): [id number] ? cc: Renan Cabral MD ? EXAMINATION: [...] 03/17/242220 ? DD/ 1410 ? TD/TT: ? Rivet Maker: ? Procedure Note [place], [place] - 03/17/2024 [facility] [address] [place] [address] Dr. [place], [place] [address] Mammography Report Signed Patient: Naa Pedersen EMR#: [id number] : 6Acct:[id number] Age/Sex: 68 / FADM Date: 02/19/24 Loc: HO.MAMMO Attending Dr: Renan Cabral MD Ordering Physician: Renan Cabral MDResu lts: 2Benign Findings Date of Service: 02/19/24Follow Up: 1 Year From Orig inal Mammogram Procedure(s): MM tomosynthesis screening BI Accession Number(s): [id number] cc: Renan Cabral MD EXAMINATION: MM SCREENING [...] in OV> 03/17/24 2221 DD/ 1410 TD/TT: Rivet Maker: us Renan Aparicio MD IMG BI PROCEDURES Robert [...] [facility] 12/19/2021 8:51 AM EST us Renan Aparicio MD LAB URINE ORDERABLES Final Result [facility] [address] from Last 3 Months or Most Recently Relevant to Health Maintenance Insurance MEDICARE [facility] STANDARD Care Teams Diet Aid Relationship Specialty Start Date End Date Renan Lawson MD [address] [place] [phone] PCP - General Internal Medicine 12/10/21 Richelle Albarado PharmD [address] [place] [phone] Pharmacist Internal Medicine 10/25/24
--- OUTSIDE RECORDS SUMMARY | 2025-01-12 16:32 | XMS_ITS | Encounter Summary ---
Author Organization [employer] Address [address] [facility] 7t [place] [address] Care Team Providers Care Wildlife Conservationist Name Role Phone Renan Lawson MD Primary Care Provide r Edilberto Barahona PharmD Unavailable [phone] Richelel Albarado PharmD Unavailable [phone] Reason for Visit * Reason Comments Med Refill Encounter Details Date Type Department Care Team ([facility] Contact Info) Description 08/26/2024 Refill [facility] [address] [place], [place] [phone] Renan Lawson MD [address] [place] [address] Social History Tobacco Use Types Packs/Day Years [...] Description 01/23/2025 2:30 PM EDT Medication Management [facility] [address] [place] [phone] Richelle Albarado PharmD [address] [place] [phone] 01/26/2025 1:15 PM EDT Office Visit [facility] [address] [place] [phone] Renan Lawson MD [address] [place] [phone] documented as of this encounter Goals Goal [...] documented as of this encounter Care Teams Wildlife Conservationist Relationship Specialty Start Date End Date Renan Lawson MD [address] [place] [address] PCP - General Internal Medicine 12/10/21 Edilberto Barahona PharmD [address] [place] [address] Pharmacist Internal Medicine 07/14/23 10/24/24 Richelle Albarado PharmD [address] [place] [address] Pharmacist Internal Medicine 10/25/24 documented as of this encounter
[2025-01-13 09:03] LABS: Hepatitis A Antibody IgG REACTIVE (Nonreactive); ~Hepatitis A Antibody IgG 11.09 S/CO (0.00-0.99)
[2025-01-13 09:10] LABS: HBS Num1 0.27 mIU/mL (0-7.99); HBc Num1 0.06 S/CO (0.00-0.79); HBsAGNum1 0.27 S/CO (0.00-0.99); HIV AB/AG Nonreactive (Nonreactive); HIV Num 1 0.05 S/CO (0.00-0.99); Hepatitis B Core Antibody Nonreactive (Nonreactive); Hepatitis B Surface Antigen Negative (Negative); ~HepC Num1 0.13 S/CO (0.00-0.79); ~Hepatitis B Surface Antibody NONREACTIVE (Nonreactive); ~Hepatitis C Antibody Nonreactive (Nonreactive)
[2025-01-13 11:53] LABS: Alpha Fetoprotein 4.2 ng/mL
[2025-01-13 13:43] LABS: Transglutaminase IgA <1.0 U/mL
[2025-01-13 15:24] LABS: Mitochondrial Antibodies NEGATIVE (NEGATIVE)
[2025-01-14 14:48] LABS: HCV RNA PCR Qn <1.18 NOT DETECTED Log IU/mL (NOT DETECTED); HCV RNA PCR Qn <15 NOT DETECTED IU/mL (NOT DETECTED)
[2025-01-14 21:23] LABS: Alpha 1 Anti-trypsin 172 mg/dL (83-199); Ceruloplasmin 33 mg/dL (14-48); Immunoglobulin A 383 mg/dL (70-320); Immunoglobulin G 1439 mg/dL (600-1540)
[2025-01-16 17:48] LABS: Smooth Muscle Antibody <20 U (<20)
[2025-01-17 06:34] LABS: Liver Kidney Microsomal Ab <=20.0 U (<=20.0)
[2025-01-17 09:04] LABS: Anti Nuclear Antibody Screen NEGATIVE (NEGATIVE)
[2025-01-24 10:58] LABS: Phosphatidylethanol 16:0-18:1 NEGATIVE; Phosphatidylethanol 16:0-18:2 NEGATIVE
== END 2025-01-12 13:36 | disposition home or self-care (01) ==
LOC: HO.LAB 13:35
PROVIDERS: PCP Internal Medicine; Visit Provider Internal Medicine
DX: K74.60 Unspecified cirrhosis of liver (principal); Z13.6 Encounter for screening for cardiovascular disorders
CPT/HCPCS: 36415; 80053; 80061; 80321; 82103; 82105; 82390; 82728; 82784; 82977; 83036; 83540; 85027; 85610; 86015; 86038; 86364; 86376; 86381; 86704; 86706; 86708; 86803; 87340; 87389; 87522

== ENCOUNTER → 2025-01-22 15:04 | Outpatient (BNV) | payer MEDICARE, MEDICAID, SELFPAY | PROVIDERS: PCP Internal Medicine; Visit Provider Radiology Diagnostic Radiology | DX: K74.60 Unspecified cirrhosis of liver (principal); R16.2 Hepatomegaly with splenomegaly, not elsewhere classified; N28.1 Cyst of kidney, acquired | CPT/HCPCS: 74183 ==

== ENCOUNTER 2025-01-22 15:26 | Outpatient (REF) | payer MEDICARE, MEDICAID, SELFPAY ==
--- NOTE | ~2025-01-22 | MR_ITS ---
EXAMINATION: MRI Abdomen without and with contrast HISTORY: K74.60 - Unspecified cirrhosis of liver COMPARISON: Correlation is made with an abdominal ultrasound dated 08/08/[address] dated 11/11/2024. TECHNIQUE: Axial in and out of phase T1-weighted gradient echo, axial diffusion weighted, and axial and coronal HASTE T2 with fat saturation images were obtained through the abdomen. Subsequently, fat suppressed axial and coronal T1-weighted images were obtained after the intravenous administration of 10 mL Gadavist. FINDINGS: There is diffuse loss of signal intensity within the liver on opposed phase images, compatible with steatosis. The liver is mildly enlarged. No enhancing mass is seen. The hepatic and portal veins are patent. There is no intra or extrahepatic biliary ductal dilatation. The gallbladder is unremarkable. The spleen is mildly enlarged. No focal splenic lesion is identified. The pancreas and adrenals are unremarkable. There is a 10.0 cm cyst at the lower pole of the right kidney and a 1.2 cm cyst at the lower pole of the left kidney. No retroperitoneal lymphadenopathy or ascites is identified in the upper abdomen. The visualized bones demonstrate normal signal intensity. There is a tiny nodule at the right lung base as noted on chest CT. MR/MR abdomen wo/w con IMPRESSION: 1. Hepatosplenomegaly and hepatic steatosis. No enhancing liver mass is identified. 2. Bilateral renal cysts as described. Electronically signed by: Eric Cooper MD 01/23/2025 07:06 AM EDT
--- OUTSIDE RECORDS SUMMARY | 2025-01-22 15:29 | XMS_ITS | Encounter Summary ---
Author Organization [facility] Address [address] [facility] [address] [address] [place] [address] Care Team Providers Care Surgical Device Sales Representative Name Role Phone Renan Lawson MD Primary Care Provide r Edilberto Barahona PharmD Unavailable [phone] Richelle Albarado PharmD Unavailable [phone] Encounter Details Date Type Department Care Team (Late st Contact Info) Description 12/17/2022 Abstract [facility] [address] [place], [place] [phone] Renan Lawson MD [address] [place], [place] [phone] Social History Tobacco Use Types Packs/Day Years [...] PM EDT Medication Management [facility] [place] [address] Richelle Albarado, [place] [address] 01/26/2025 1:15 PM EDT Office Visit [facility] [address] [place] [phone] Renan Lawson [place] [address] documented as of this encounter Visit Diagnoses Not on filedocumented in this encounter Additional Health Concerns Assessment Noted Time PHQ-9 Depression Total Score: 0 12/02/19 10:15 AM EST documented as of this encounter Care Teams Surgical Device Sales Representative Relationship Specialty Start Date End Date Renan Lawson MD [address] [place] [phone] PCP - General Internal Medicine 12/10/21 Edilberto Barahona PharmD [address] [place] [phone] Pharmacist Internal Medicine 07/14/23 10/24/24 Richelle Albarado PharmD [address] [place] [phone] Pharmacist Internal Medicine 10/25/24 documented as of this encounter
--- OUTSIDE RECORDS SUMMARY | 2025-01-22 15:29 | XMS_ITS | Encounter Summary ---
Author Organization [employer] Address [address] [facility] [address] 7[address] [place] [address] Care Team Providers Care Rn Ccu Name Role Phone Renan Lawson MD Primary Care Provide r Edilberto Barahona PharmD Unavailable [phone] Richelle Albarado PharmD Unavailable [phone] Reason for Visit * Reason Comments Med Refill Encounter Details Date Type Department Care Team ([facility] st Contact Info) Description 02/09/2024 Refill [facility] [address] [place], [place] [phone] Renan Lawson MD [address] [place], [place] [phone] Fibromyalgia Social History Tobacco Use Types Packs/Day [...] Description 01/23/2025 2:30 PM EDT Medication Management [facility] [address] [place] [phone] Richelle Albarado PharmD [address] [place] [phone] 01/26/2025 1:15 PM EDT Office Visit [facility] [address] [place] [phone] Renan Lawson MD [address] [place] [address] documented as of this encounter Goals Goal [...] documented as of this encounter Care Teams Rn Ccu Relationship Specialty Start Date End Date Renan Lawson MD [address] [place] [address] PCP - General Internal Medicine 12/10/21 Edilberto Barahona PharmD [address] [place] [address] Pharmacist Internal Medicine 07/14/23 10/24/24 Richelle Albarado PharmD [address] [place] [phone] Pharmacist Internal Medicine 10/25/24 documented as of this encounter
--- OUTSIDE RECORDS SUMMARY | 2025-01-22 15:29 | XMS_ITS | Encounter Summary ---
Author Organization [facility] Address [address] [place] [address] Care Team Providers Care Whiting Can Worker Name Role Phone Renan Lawson MD Primary Care Provide r Edilberto Barahona PharmD Unavailable [phone] Richelle Albarado PharmD Unavailable [phone] Reason for Visit * Reason Onset Date Comments Reschedule 05/20/2023 Encounter Details Date Type Department Care Team ([facility] st Contact Info) Description 05/20/2023 Telephone [facility] MEDICINE [address] [place], [place] [phone] Renan Lawson MD [address] [place], [place] [phone] Reschedule Social History Tobacco Use Types Packs/Day [...] knee injection appointment. Please contact pt at [phone] (Bulgarian speaker) documented in this encounter Plan of Treatment Upcoming Encounters Date Type Department Care Team ([facility] st Contact Info) Description 01/23/2025 2:30 PM EDT Medication Management [facility] MEDICINE [address] [place] [phone] Richelle Albarado PharmD [address] [place] [phone] 01/26/2025 1:15 PM EDT Office Visit [facility] MEDICINE [address] [place] [phone] Renan Lawson MD [address] [place] [address] documented as of this encounter Goals Goal Patient Goal Type Associated Problems Recent Progress Patient-Stated? Author Blood Pressure < 140/90 Blood Pressure 138/89(2023 1:24 PM EST) No Edilberto Barahona PharmD Keep fasting blood glucose between 70 and 130 Result Component No Edilberto Barahnoa PharmD documented as of this encounter Visit Diagnoses Not on filedocumented in this encounter Additional Health Concerns Assessment Noted Time PHQ-9 Depression Total Score: 0 12/02/19 23 10:15 AM EST documented as of this encounter Care Teams Whiting Can Worker Relationship Specialty Start Date End Date Renan Lawson MD [address] [place] [phone] PCP - General Internal Medicine 12/10/21 Edilberto Barahona PharmD [address] [place] [phone] Pharmacist Internal Medicine 07/14/23 10/24/24 Richelle Albarado PharmD [address] [place] [address] Pharmacist Internal Medicine 10/25/24 documented as of this encounter
--- OUTSIDE RECORDS SUMMARY | 2025-01-22 15:29 | XMS_ITS | Encounter Summary ---
Author Organization [employer] Address [address] [place] [address] Care Team Providers Care Marine Cargo Specialist Name Role Phone Renan Lawson MD Primary Care Provide r Richelle Albarado PharmD Unavailable [phone] Encounter Details Date Type Department Care Team ([facility] Contact Info) Description 01/12/2025 Orders Only GENERIC [...] Description 01/23/2025 2:30 PM EDT Medication Management [facility] MEDICINE [address] [place] [phone] Richelle Albarado PharmD [address] [place] [phone] 01/26/2025 1:15 PM EDT Office Visit [facility] MEDICINE [address] [place] [phone] Renan Lawson MD [address] [place] [address] [phone] Pending Results Name Type Priority Associated Diagnoses Date /Time Alpha-Fetoprotein, Tumor Marker Lab Routine 01/12/2025 2:04 PM EST Ceruloplasmin Lab Routine 01/12/2025 2:04 PM EST Lofua-[id number], Quantitative Lab Routine 01/12/2025 2:04 PM EST documented as of this encounter Goals Goal [...] Barahona PharmD documented as of this encounter Procedures Procedure Name Priority Date/Time Associated Diagnosis Comments HEPATITIS C ANTIBODY Routine 01/12/2025 2:04 PM EST HCV RNA BY PCR, QN RFX MADDISON Routine 01/12/2025 2:04 PM EST IRON AND TOTAL IRON BINDING CAPACITY Routine 01/12/2025 2:04 PM EST ACTIN (SMOOTH MUSCLE) ANTIBODY (IGG) Routine 01/12/2025 2:04 PM EST [id number] QN Routine 2:04 PM EST HEPATITIS A ANTIBODY, TOTAL Routine 01/12/2025 2:04 PM EST TISSUE TRANSGLUTAMINASE AB, IGA Routine 01/12/2025 2:04 PM EST CERULOPLASMIN Routine 01/12/2025 2:04 PM EST ALPHA FETOPROTEIN, TUMOR MARKER Routine 01/12/2025 2:04 PM EST HEPATITIS B SURFACE ANTIGEN, EIA Routine 01/12/2025 2:04 PM EST HEPATITIS B CORE AB TOTAL Routine 01/12/2025 2:04 PM EST LIVER KIDNEY MICROSOME (LKM-1) AB (IGG) Routine 01/12/2025 2:04 PM EST MITOCHONDRIAL ANTIBODY WITH REFLEX TO TITER Routine 01/12/2025 2:04 PM EST HIV 1/2 ANTIGEN/ANTIBODY, FOURTH GENERATION W/RFL Routine 01/12/2025 2:04 PM EST HEPATITIS B SURFACE ANTIBODY, QUALITATIVE Routine 01/12/2025 2:04 PM EST PROTHROMBIN TIME-INR Routine 01/12/2025 2:04 PM EST CBC Routine 01/12/2025 2:04 PM EST WALESKA SCREEN, IFA, W/REFL TITER AND PATTERN Routine 01/12/2025 2:04 PM EST HEMOGLOBIN A1C Routine 01/12/2025 2:04 PM EST GGT Routine 01/12/2025 2:04 PM EST IMMUNOGLOBULIN A Routine 01/12/2025 2:04 PM EST IMMUNOGLOBULIN G Routine 01/12/2025 2:04 PM EST FERRITIN Routine 01/12/2025 2:04 PM EST LIPID PANEL, STANDARD Routine 01/12/2025 2:04 PM EST COMPREHENSIVE METABOLIC PANEL Routine 01/12/2025 2:04 PM EST documented in this encounter Results * WALESKA Screen,IFA, with Reflex to Titer and Pattern (01/12/2025 2:04 PM EST) Anti Nuclear Antibody Screen NEGATIVE NEGATIVE [facility] Comment:WALESKA IFA is a first l ine screen for detecting thepresence of up to approximately 150 autoantibodies invarious autoimmune diseases. A negative WALESKA IFA resultsuggests an WALESKA-associated autoimmune disease is notpresent at this time, but is not definitive. If thereis high clinical suspicion for Sjogren's syndrome,testing for anti-SS-A/Ro antibody should be considered.Anti-Ondina-1 antibody should be considered for clinicallysuspected inflammatory myopathies.AC-0: NegativeInternational Consensus on WALESKA Patterns(https://doi.org/10.1515/qnsn-8298-1054)For additional information, please refer tohttp://education.Quest[employer].com/faq/KLN346(This link is being provided for informational/educational purposes only.)THIS TEST WAS PERFORMED AT:[facility] [place] [phone] SNOWDEN MD WALESKA Titer TNP [facility] WALESKA Pattern TNP [facility] WALESKA TITER 2 (REF LAB) TNP [facility] WALESKA Pattern 2 TNP [facility] WALESKA TITER 3 TNP [facility] WALESKA PATTERN 3 [facility] 01/12/2025 2:04 PM EST 01/12/2025 2:04 PM EST us Generic External Data Provider LAB BLOOD ORDERAB LES Final Result [facility] [address] [place] [address] [phone] * Liver Kidney Microsomal (LKM-1) Antibody??(IgG) (01/12/2025 2:04 PM EST) Liver Kidney Microsomal (LKM-1) Antibody IgG <=20.0 <=20.0 U [facility] Comment:Reference Range: <=2 0.0 Negative 20.1-24.9 Equivocal >=25.0 PositiveAnti-liver/kidney microsomal antibodies (Anti-LKM-1)were previously tested by indirect immunofluorescence(IF) using rodent liver/kidney substrate.Identification of a specific antibody target ascytochrome P450 IID6 has led to the current recombinantbased JESSICA. Antibodies to this cytochrome are presentin approximately 70% of patients with autoimmunehepatitis type 2. This antibody is also present inapproximately 10% of patients with hepatitis Cinfection.THIS TEST WAS PERFORMED AT:[email or web address] [place] [address]DBDSYGFHUSSEIN COREAS MD,PHD 01/12/2025 2:04 PM EST 01/12/2025 2:04 PM EST Generic External Data Provider LAB BLOOD ORDERAB LES Final Result Performing Organization Address [facility] Co de Phone Number [facility] [address] [place] [phone] * Actin (Smooth Muscle) Antibody (IgG) (01/12/2025 2:04 PM EST) Smooth Muscle Antibody <20 <20 U [facility] Comment:Reference Range: <20 U: Negative>or=20 U: PositiveAntibodies recognizing actin are the main componentof smooth muscle antibodies associated with auto- immune liver disease. Actin antibodies are found inapproximately 75% of patients with autoimmunehepatitis (AIH) type 1, approximately 65% of patientswith autoimmune cholangitis, approximately 30% ofpatients with primary biliary cirrhosis andapproximately 2% of healthy controls. High values areclosely correlated with AIH type 1.THIS TEST WAS PERFORMED AT:[email or web address] [place] [address]COZZSTOHUSSEIN COREAS MD,PHD 01/12/2025 2:04 PM EST 01/12/2025 2:04 PM EST Generic External Data Provider LAB BLOOD ORDERAB LES Final Result Performing Organization Address [facility] Co de Phone Number [facility] [address] [place] [phone] * (ABNORMAL) Immunoglobulin A (01/12/2025 2:04 PM EST) Immunoglobulin A 383(A) 70 - 320 mg/dL [facility] Comment:THIS TEST WAS PERFOR MED AT:[email or web address] [address] [phone] SNOWDEN MD 01/12/2025 2:04 PM EST 01/12/2025 2:04 PM EST Generic External Data Provider LAB BLOOD ORDERAB LES Final Result Performing Organization Address [facility] Co de Phone Number [facility] [address] [place] [address] [phone] * Immunoglobulin G (01/12/2025 2:04 PM EST) Pathologist [facility] Immunoglobulin G 1439 600 - 1540 mg/dL [facility] Comment:THIS TEST WAS PERFOR MED AT:[email or web address] [address] [id number] SNOWDEN MD 01/12/2025 2:04 PM EST 01/12/2025 2:04 PM EST us Generic External Data Provider LAB BLOOD ORDERAB LES Final Result Performing Organization Address [facility] Phone Number [facility] [address] [place] [phone] * HCV RNA BY PCR, QN RFX MADDISON (01/12/2025 2:04 PM EST) [facility] HCV RNA PCR QN <15 NOT DETECTED NOT DETECTED IU/mL [facility] HCV RNA PCR QN <1.18 NOT DETECTED NOT DETECTED Log IU/mL [facility] HCV RNA COMMENT SEE NOTE [facility] Comment:For additional infor mation, please refer tohttp://education.[employer]/faq/VDA19c1(This link is being provided for informational/Educational purposes only.)THIS TEST WAS PERFORMED AT:[email or web address] [address] [phone] SNOWDEN MD HCV RNA GENOTYPE,LIPA TNP [facility] Comment:Test not indicated. 01/12/2025 2:04 PM EST 01/12/2025 2:04 PM EST us Generic External Data Provider LAB BLOOD ORDERAB LES Final Result Performing Organization Address [facility] de Phone Number [facility] [address] [place] [phone] * Mitochondrial Antibody with Reflex to Titer (01/12/2025 2:04 PM EST) Mitochondrial Antibodies NEGATIVE NEGATIVE [facility] Comment:THIS TEST WAS PERFOR MED AT:[facility] [place] [phone] SNOWDEN MD Mitochondrial Ab Titer TNP [facility] 01/12/2025 2:04 PM EST 01/12/2025 2:04 PM EST Generic External Data Provider LAB BLOOD ORDERAB LES Final Result Performing Organization Address [facility] Co de Phone Number [facility] [address] [place] [address] [phone] * Tissue Transglutaminase Antibody, IgA (01/12/2025 2:04 PM EST) Transglutaminase IgA <1.0 U/mL [facility] Comment:Value Interpretation ----- <15.0 Antibody not detected> or = 15.0 Antibody detectedTHIS TEST WAS PERFORMED AT:[facility] [place] [phone] SNOWDEN MD 01/12/2025 2:04 PM EST 01/12/2025 2:04 PM EST Generic External Data Provider LAB BLOOD ORDERAB LES Final Result Performing Organization Address City/[facility]/ZIP Co de Phone Number [facility] [address] [place] [phone] * Hepatitis B surface antigen, EIA (01/12/2025 2:04 PM EST) Hepatitis B Surface Ag Negative Negative [facility] 01/12/2025 2:04 PM EST 01/12/2025 2:04 PM EST Generic External Data Provider LAB BLOOD ORDERAB LES Final Result Performing Organization Address City/[facility]/ZIP Co de Phone Number [facility] [address] [place] [phone] * HIV-1/2 Antigen and Antibodies, Fourth Generation, with Reflexes (01/12/2025 2:04 PM EST) HIV AB/AG Nonreactive Nonreactive [facility] Comment:HIV-1 p24 Ag and/or HIV-1/HIV-2 Ab not detected.A test result that is nonreactive does not exclude thepossibility of exposure to or infection with HIV-1 and/orHIV-2. Nonreactive results in this assay for individualswith prior exposure to HIV-1 and/or HIV-2 may be due toantigen and antibody levels that are below the limit ofdetection of this assay.The [employer] HIV Ag/Ab Combo assay result andsupplemental assay results should be interpreted inconjunction with the patient's clinical presentation,history and other laboratory results. If the results areinconsistent with clinical evidence, additional testing issuggested to confirm the result. 01/12/2025 2:04 PM EST 01/12/2025 2:04 PM EST us Generic External Data Provider LAB BLOOD ORDERAB LES Final Result Performing Organization Address [facility] Co de Phone Number [facility] [address] [place] [phone] * Hepatitis C Ab (01/12/2025 2:04 PM EST) Hepatitis C Antibody Nonreactive Nonreactive [facility] Comment:Antibodies to HCV no t detected; does not exclude early acuteHCV infection. 01/12/2025 2:04 PM EST 01/12/2025 2:04 PM EST us Generic External Data Provider LAB BLOOD ORDERAB LES Final Result Performing Organization Address City/[facility]/ZIP Co de Phone Number [facility] [address] [place] [phone] * Hepatitis B Core Antibody, Total (01/12/2025 2:04 PM EST) Pathologist [facility] Hepatitis B Core Antibody Nonreactive Nonreactive [facility] 01/12/2025 2:04 PM EST 01/12/2025 2:04 PM EST Generic External Data Provider LAB BLOOD ORDERAB LES Final Result Performing Organization Address [facility] Co de Phone Number [facility] [address] [place] [phone] * Hepatitis B Surface Antibody, Qualitative (01/12/2025 2:04 PM EST) Pathologist [facility] ~Hepatitis B Surface Antibody NONREACTIVE Nonreactive [facility] Comment:Nonreactive: < 8.00 mIU/mL 01/12/2025 2:04 PM EST 01/12/2025 2:04 PM EST Generic External Data Provider LAB BLOOD ORDERAB LES Final Result Performing Organization Address [facility] Phone Number [facility] [address] [place] [phone] * Hepatitis A Antibody, Total (01/12/2025 2:04 PM EST) Pathologist [facility] Hepatitis A Antibody IgG REACTIVE Nonreactive [facility] Comment:The presence of IgG anti-HAV implies past HAV infection(recent or distant) or vaccination against HAV. 01/12/2025 2:04 PM EST 01/12/2025 2:04 PM EST Generic External Data Provider LAB BLOOD ORDERAB LES Final Result Performing Organization Address [facility] Co de Phone Number [facility] [address] [place] [phone] * (ABNORMAL) Lipid Panel, Standard (01/12/2025 2:04 PM EST) Triglycerides 271(H) <150 mg/dL [facility] Comment:Desirable Triglyceri de: less than 150 mg/dLBorderline High Triglyceride 150-199 mg/dLHigh Triglyceride: 200-499 mg/dLVery High Triglyceride: greater than or equal to 5OO mg/dL Cholesterol 270(H) <200 mg/dL [facility] Comment:Desirable Cholestero l: less than 200 mg/dLBorderline High Cholesterol: 200-239 mg/dLHigh Cholesterol: greater than 239 mg/dL LDL Cholesterol Calculated 173(H) <100 mg/dL [facility] Comment:Desirable LDL: less than 100 mg/dLNear Optimal/Above Optimal LDL: 110- 129 mg/dLBorderline High LDL: 130-159 mg/dLHigh LDL: 160-189 mg/dLVery High LDL: greater than or equal to 190 mg/dL HDL Cholesterol 43 >40 mg/dL [facility] Comment:Desirable HDL: great er than 40 mg/dL Note: This HDL assay may give artificially low results in patients with liver disease. 01/12/2025 2:04 PM EST 01/12/2025 2:04 PM EST us Generic External Data Provider LAB BLOOD ORDERAB LES Final Result Performing Organization Address [facility] Co de Phone Number [facility] [address] [place] [phone] * (ABNORMAL) Gamma Glutamyl Transferase (GGT) (01/12/2025 2:04 PM EST) Gamma Glutamyl Transpeptidase 169(H) 7 - 33 U/L [facility] 01/12/2025 2:04 PM EST 01/12/2025 2:04 PM EST Generic External Data Provider LAB BLOOD ORDERAB LES Final Result Performing Organization Address [facility] Co de Phone Number [facility] [address] [place] [phone] * Ferritin (01/12/2025 2:04 PM EST) Ferritin 35 10 - 250 ng/mL [facility] 01/12/2025 2:04 PM EST 01/12/2025 2:04 PM EST Generic External Data Provider LAB BLOOD ORDERAB LES Final Result Performing Organization Address [facility] Co de Phone Number [facility] [address] [place] [phone] * Iron And Total Iron Binding Capacity (01/12/2025 2:04 PM EST) Pathologist [facility] Iron 42 30 - 160 mcg/dL [facility] Total Iron Binding Capacity 256 228 - 428 mcg/dL [facility] Percent Iron Saturation 16 15 - 50 % [facility] Unsaturated Iron Binding 214 ug/dL [facility] 01/12/2025 2:04 PM EST 01/12/2025 2:04 PM EST Generic External Data Provider LAB BLOOD ORDERAB LES Final Result Performing Organization Address [facility] Phone Number [facility] [address] [place] [address] [phone] * (ABNORMAL) Comprehensive Metabolic Panel (01/12/2025 2:04 PM EST) Sodium 140 135 - 145 mmol/L [facility] Potassium 3.4 3.3 - 5.1 mmol/L [facility] Chloride 107 96 - 108 mmol/L [facility] Carbon Dioxide 22 22 - 29 mmol/L [facility] Anion Gap 14 12 - 20 [facility] Urea Nitrogen (BUN) 10 9 - 16 mg/dL [facility] Creatinine, Serum 0.77 0.5 - 1.4 mg/dL [facility] Estimated Glomerular Filt Rate >60 [facility] Comment:Chronic Kidney Disea se: Estimated GFR < 60 mL/min/1.83o3Rbcbve Kidney Disease: Estimated GFR < 15 mL/min/1.73m2 Glucose 297(H) 60 - 115 mg/dL [facility] Calcium 8.8 8.4 - 10.2 mg/dL [facility] Bilirubin, Total 0.3 0.0 - 1.0 mg/dL [facility] Aspartate Amino Transferase 41(H) 5 - 31 U/L [facility] Alanine Aminotransferase 41(H) 0 - 31 U/L [facility] Total Protein 8.0 6.5 - 8.0 g/dL [facility] Albumin Level 3.9 3.5 - 5.0 g/dL [facility] Alkaline Phosphatase 122(H) 39 - 117 U/L [facility] 01/12/2025 2:04 PM EST 01/12/2025 2:04 PM EST us Generic External Data Provider LAB BLOOD ORDERAB LES Final Result Performing Organization Address City/State/[facility] Co de Phone Number [facility] [address] [place] [phone] * (ABNORMAL) Hemoglobin A1c (01/12/2025 2:04 PM EST) Hemoglobin A1c 8.3(H) <6.0 % [facility] Comment:Hemoglobin A1C Refer ence Range Adults: 4.8 - 6.0 % Non diabetic: < 6.0 % Goal: < 7.0 %Additional Action Suggested: > 8.0 %Note: Hemoglobin A1c results are invalid for patients with abnormal amounts of HbF. Blood transfusions may impact the HbA1c concentration in the patient sample. Estimated Average Glucose 192 mg/dL [facility] Comment:eAG = Estimated ave rage glucose which is %A1C expressed asaverage glucose, using the formula of the H7K-KbahxquJntvfcz Glucose study (ADAG), Diabetes Care, Vol.31,#8,Jun. 2007 01/12/2025 2:04 PM EST 01/12/2025 2:04 PM EST us Generic External Data Provider LAB BLOOD ORDERAB LES Final Result Performing Organization Address [facility] Co de Phone Number [facility] [address] [place] [phone] * Prothrombin Time-INR (01/12/2025 2:04 PM EST) [facility] Prothrombin Time 11.4 10.9 - 12.4 SEC [facility] INTERNATIONAL NORM RATIO 1.0 0.9 - 1.1 [facility] Comment:INTERNATIONAL NORMAL IZED RATIO (INR) [...] ORDERAB LES Final Result Performing Organization Address [facility] de Phone Number [facility] [address] [place] [address] [phone] * (ABNORMAL) CBC (01/12/2025 2:04 PM EST) [facility] White Blood Count 9.2 4.8 - 10.8 X10*3/uL [facility] Red Blood Count 4.69 4.20 - 5.50 X10*6/uL [facility] Hemoglobin 12.0 12.0 - 16.0 g/dl [facility] Hematocrit 38.5 37.0 - 47.0 % [facility] Mean Corpuscular Volume 82.1 80.0 - 98.0 fL [facility] Mean Corpuscular Hemoglobin 25.6(L) 27.0 - 33.0 pg [facility] Mean Corpuscular HGB Conc 31.2 31.0 - 35.0 g/dl [facility] Red Cell Distribution Width 13.8 11.0 - 16.0 % [facility] Platelet Count 203 160 - 400 X10*3/uL [facility] Mean Platelet Volume 9.8 9.4 - 12.3 fL [facility] NRBC Pct Auto 0.0 0.0 - 0.2 /100WBC [facility] NRBC Abs Auto 0.000 0.0 - 0.012 X10*3/uL [facility] 01/12/2025 2:04 PM EST 01/12/2025 2:04 PM EST us Generic External Data Provider LAB BLOOD ORDERAB LES Final Result Performing Organization Address City/State/[facility] Co de Phone Number [facility] [address] [place] [phone] documented in this encounter Visit Diagnoses Not on filedocumented in this encounter Additional Health Concerns Assessment Noted Time PHQ-9 Depression Total Score: 6 12/29/19 24 1:36 PM EST documented as of this encounter Care Teams Marine Cargo Specialist Relationship Specialty Start Date End Date Renan Lawson MD [address] [place] [phone] PCP - General Internal Medicine 12/10/21 Richelle Albarado PharmD [address] [place] [address] Pharmacist Internal Medicine 10/25/24 documented as of this encounter
--- OUTSIDE RECORDS SUMMARY | 2025-01-22 15:29 | XMS_ITS | Encounter Summary ---
Author Organization [employer] Address [address] [place] [address] Care Team Providers Care In School Suspension Aide Name Role Phone Renan Lawson MD Primary Care Provide r Richelle Albarado PharmD Unavailable [phone] Reason for Visit * Reason Comments Med Refill Encounter Details Date Type Department Care Team ([facility] st Contact Info) Description 12/29/2024 Refill [facility] [address] [place], [place] [phone] Renan Lawson MD [address] [place] [address] Fibromyalgia Social History Tobacco Use Types Packs/Day [...] 2:30 PM EDT Medication Management [facility] [address] [place] [phone] Richelle Albarado PharmD [address] [place] [phone] 01/26/2025 1:15 PM EDT Office Visit [facility] [address] [place] [phone] Renan Lawson MD [address] [place] [phone] documented as of this encounter Goals Goal [...] documented as of this encounter Care Teams In School Suspension Aide Relationship Specialty Start Date End Date Renan Lawson MD [address] [place] [address] PCP - General Internal Medicine 12/10/21 Richelle Albarado PharmD [address] [place] [address] Pharmacist Internal Medicine 10/25/24 documented as of this encounter
--- OUTSIDE RECORDS SUMMARY | 2025-01-22 15:29 | XMS_ITS | Encounter Summary ---
Author Organization [email or web address] Address [address] 7[address] [place] [address] Care Team Providers Care Senior Advocate Name Role Phone Renan Lawson MD Primary Care Provide r Richelle Albarado PharmD Unavailable [phone] Reason for Visit * Reason Comments Pre-visit Planning SDOH Screening posit gloria and Tobacco screening negative Encounter Details Date Type Department Care Team ([facility] st Contact Info) Description 01/18/2025 Patient Outreach [facility] [address] [place] [address] Renan Lawson MD [address] [place], [place] [phone] Pre-visit Planning (SDOH Screening positive and Tobacco screening negative) Social History Tobacco Use Types Packs/Day Years [...] housing situation today? I have vamshi naylor 01/18/[address] you li ve. Do you have problems with any of the following? None of the above 01/18/2025 Food Insecurity Answer Date Recorded Within the past 12 months, y ou worried that your food would run out before you got money to buy more: Sometimes True 2024 Within the past 12 months,th e food you bought just didn't last and you didn't have enough money to get more: Sometimes True 01/18/2025 Transportation Answer Date Recorded In the past 12 months, has l ack of transportation kept you from medical appts, meetings, work or from getting things needed for daily living? No 01/18/2025 Utilities Answer Date Recorded In the past 12 months, has t he electric, gas, oil or water company threatened to shut off services in your home? No 01/18/2025 Depression Answer Date Recorded Patient Health Questionnaire-2 [...] AM EDT documented as of this encounter Progress Notes * Daniela Mcnamara - 01/18/2025 9:26 AM EDT CC Daniela Borden placed successful outbound call to patient for pre-visit planning. Patient name and confirmed. Patient confirms appt date and time, and has transportation arrangements. Biggest concern for appointment at this time is right rib pain more than a month. Patient educated on extended clinic hours on Mondays and Wednesdays, and Walk-In Urgent Care Located in [facility]. Patient advised to bring to appointment a photo id and insurance card. Appropriate screenings completed in anticipation of appointment. SDOH positive. Patient looking for assistance with Food insecurities: Sometimes. Referral will be placed. documented in this encounter Plan of Treatment Upcoming Encounters Date Type Department Care Team (Late st Contact Info) Description 01/23/2025 2:30 PM EDT Medication Management [facility] [address] [place] [address] Richelle Albarado, PharmD [address] [place], [place] [phone] 01/26/2025 1:15 PM EDT Office Visit [facility] [address] [facility] [place] [address] Renan Lawson MD [address] [facility] [place] [address] documented as of this encounter Goals Goal Patient Goal Type Associated Problems Recent Progress Patient-Stated? Author Blood Pressure < 140/90 Blood Pressure 138/89(2023 1:24 PM EST) No Edilberto Barahona PharmD Blood Pressure < 140/90 Blood Pressure Hypertension 138/89(2023 1:24 PM EST) No Edilberto Barahona PharmD Keep fasting blood glucose between 70 and 130 Result Component No Danie Barahonaril PharmD Keep fasting blood glucose between 70 [...] as of this encounter Care Teams Senior Advocate Relationship Specialty Start Date End [place] [address] PCP - General Internal Medicine 12/10/21 [place] [address] Pharmacist Internal Medicine 10/25/24 documented as of this encounter
--- OUTSIDE RECORDS SUMMARY | 2025-01-22 15:29 | XMS_ITS | Data Portability ---
Author Organization [place] [facility], Allergy Address [address] [address] Assessment Encounter Date Assessment Date Assessment LastModified [...] Other: ?? Missed 1 week Dose Notes:?? [email or web address] Not available 07/29/2024 13:27:27 09/07/2024 09/07/2024 Administered By: Iamn Santos RN Use of Antihistamines: No If [...] Organization Details Recorded Time Itching of skin 291410978 Active 2018 Pruritus, unspecifi ed; Note: Date Diagnosed : 02/08/2019 3:52 PM (L29.9) Not Available [facility] 4 02:22:18 Asthenia 56249321 Active 2018 Asthenia NOS; Note: Date Diagnosed : 10/10/2019 9:51 AM (R53.1) Not Available [facility] 4 02:21:50 Gastro-eso phageal reflux disease with esophagiti s 501334194 Active 2018 Gastro-es ophageal reflux disease with esophagit is; Note: Date Diagnosed : 04/07/2019 1:10 PM (K21.0) Not Available [facility] 4 02:21:39 Allergic rhinitis 37614796 Active 2019 SCIT 03/2024 ANDREW ALEJANDRO MD [address] [place] [address], [facility] [place], [address] , [facility] - [facility] 4 13:42:19 Nasal congestion 52086507 Active 2018 Nasal congestio n; Note: Date Diagnosed : 02/08/2019 3:56 PM (R09.81) Not Available [facility] 02:21:46 Perennial allergic rhinitis 343260807 Active 2023 MECHE ALEJAC, RMA [address], [place], [address] , [facility] - [facility] [place] 13:30:45 Problem Notes None recorded. Procedures Surgical History Date Name Laterality Status Provider Name and Address Organization Details Recorded Time 09/21/20 24 Allergy Immunotherapy Injections completed MECHE ROSAANASTACIAC, RMA [address], [place], [address], [facility] - [facility] 09/21/2024 10:54:46 09/07/20 24 Allergy Immunotherapy Injections completed MECHE MASTERSONC, RMA [address], [place], [address], [facility] - [facility] 09/07/2024 15:26:03 07/29/20 24 Allergy Immunotherapy Injections completed LESA BRINK, RMA [address], [place], [address], [facility] - [facility] 07/29/2024 13:27:22 07/21/20 24 Allergy Immunotherapy Injections completed MECHE FERRIS, RMA [address] [place] [address], [address], [facility] - [facility] 07/21/2024 10:07:54 07/06/20 24 Allergy Immunotherapy Injections completed IMAN SANTOS RN [address], [place], [address], [facility] - [facility] 07/06/2024 14:13:42 06/23/20 24 Allergy Immunotherapy Injections completed MECHE FERRIS, RMA [address], [place], [address], [place] - [facility] 06/23/2024 13:25:45 06/15/20 24 Allergy Immunotherapy Injections completed MECHE FERRIS, RMA [address], [place], [address], [facility] - [facility] 06/15/2024 14:07:46 05/05/20 24 Allergy Immunotherapy Injections completed MECHE FERRIS [facility] [address] [facility],[address], [address], [facility] - [facility] 05/05/2024 13:06:00 04/28/20 24 Allergy Immunotherapy Injections completed LESA DENISSE [facility] [address] [facility],[address], [address], [facility] - [facility] 04/28/2024 14:05:19 04/20/20 24 Allergy Immunotherapy Injections completed LESATulio BRINK [address], [address], [facility] 04/20/2024 14:27:52 04/08/20 24 Allergy Immunotherapy Injections completed LESATulio BRINK [address], [address], [facility] 04/08/2024 13:04:02 03/30/20 24 Allergy Immunotherapy Injections completed MECHE MASTERSONShelia [address], [address], [facility] 03/30/2024 13:31:25 Imaging Results None recorded. Procedure Notes None recorded. Medical Equipment None Reported. Allergies Allergen ID Allergen Name Allergen Category Reaction Reaction Severity Criticality Documentation Date Start Date Code Code System Note Provider Name and Address Organization Details Recorded Time 19447 morphine medicatio n other Not available Not available 03/22/2024 7052 RxNorm React ion: unkno wn, unspe cifie d;; Not Available [facility] 00:54:57 Medications Name Sig Start Date Stop Date Status Note LastModified by Organization Details LastModified Time medbox status USE DIRECTED active Not Available Not Available No t Available metformin 500 mg tablet 03/10 completed Medicati on ID: [id number] D uration Value: 30 Brand Name: metformi [...] nebulizat ion 03/10 completed Medicati on ID: [id number] D uration Value: 15 Brand Name: albutero l sulfate Send Method: E-Prescr ibed Sub s Allowed: subs OK Speci al Instruct ion: INHALE 1 VIAL BY NEBULIZA TION EVERY 4 HOURS NEEDED FOR WHEEZING FOR UP TO 30 DAYS. Me dication GenericN meng: albutero l sulfate Not Available Not Available Not Available trazodone 50 mg tablet 03/10 completed Medicati on ID: [id number] D uration Value: 30 Brand Name: trazodon [...] mg tablet 03/10 completed Medicati on ID: [id number] D uration Value: 30 Brand Name: atorvast [...] mg tablet 03/10 completed Medicati on ID: [id number] D uration Value: 30 Brand Name: clonazep [...] mg tablet 03/18 completed Medicati on ID: [id number] D uration Value: 10 Reason: () Brand [...] topical patch 03/10 completed Medicati on ID: [id number] D uration Value: 28 Brand Name: lidocain e Send Method: E-Prescr ibed Sub s Allowed: subs OK Medic ationGen ericName : lidocain e Not Available Not Available Not Available verapamil ER (PM) 300 mg capsule 24hr pellet CT,ext.re lease 03/10 completed Medicati on ID: [id number] D uration Value: 30 Brand Name: verapami l Send Method: E-Prescr ibed Sub s Allowed: subs OK Speci al Instruct ion: TOME EVELIO CAPSULA POR V?A ORAL TODOS LOS D? Med icationG enericNa me: verapami l Not Available Not Available Not Available Advair Diskus 250 mcg-50 mcg/dose powder for inhalatio n active Medicati on ID: [id number] B rand Name: Advair Diskus S end Method: E-Prescr ibed Sub s Allowed: subs OK Medic ationGen ericName : Advair Diskus Not Available Not Available Not Available nitroglyc deonna 0.4 mg sublingua l tablet 03/10 completed Medicati on ID: 731325 B rand Name: nitrogly cerin Se nd Method: E-Prescr ibed Sub s Allowed: subs OK Medic ationGen ericName : nitrogly cerin Not Available Not Available Not Available mirtazapi ne 45 mg tablet TOME EVELIO TABLETA TODOS LOS D AL [employer] E active Not Available Not Available No t Available ammonium lactate 12 % topical cream 03/10 completed Medicati on ID: 562225 D uration Value: 30 Brand Name: ammonium [...] both nostrils 03/10 completed Medicati on ID: [id number] Vashti avalos d By Name: BEST Blackmon [...] mg tablet 03/10 completed Medicati on ID: [id number] D uration Value: 7 Brand Name: oxycodon e Send Method: E-Prescr ibed Sub s Allowed: subs OK Medic ationGen ericName : oxycodon e Not Available Not Available Not Available Vitamin B-12 ER 1,000 mcg tablet,ex tended release 03/10 completed Medicati on ID: 666191 D uration Value: 30 Brand Name: Vitamin [...] extended release 05/31 completed Medicati on ID: 544661 D uration Value: 30 Reason: () Brand [...] mg capsule 03/10 completed Medicati on ID: 741259 D uration Value: 30 Brand Name: Lyrica S end Method: E-Prescr ibed Sub s Allowed: subs OK Medic ationGen ericName : Lyrica Not Available Not Available Not Available morphine active Not Available Not Avai lable Not Available DermOtic Oil 0.01 % ear drops 2 drop 03/10 completed Medicati on ID: 354539 P rescribe d By Name: Andrew Alejandro M.D. Bra nd Name: DermOtic Oil Send Method: E-Prescr ibed Sub s Allowed: subs OK Medic ationGen ericName : DermOtic Oil Not Available Not Available Not Available ProAir HFA 03/10 completed Medicati on ID: 257436 D uration Value: 17 Brand Name: ProAir HFA Send Method: E-Prescr ibed Sub s Allowed: subs OK Speci al Instruct ion: INHALE 2 PUFFS INTO THE LUNGS 4 TIMES DAILY NEEDED FOR WHEEZING OR SHORTNES S OF BREATH. Medicati onGeneri cName: ProAir HFA Not Available Not Available Not Available FreeStyle [place] Lite kit USE DIRECTED TO CHECK BLOOD [...] gram oral soln active Medicati on ID: 091650 B rand Name: sodium,p otassium ,mag sulfates Send Method: E-Prescr ibed Sub s Allowed: subs OK Medic ationGen ericName : sodium,p otassium ,mag sulfates Not Available Not Available Not Available Vitamin D3 50 mcg (2,000 unit) capsule 03/10 completed Medicati on ID: 311322 D uration Value: 30 Brand Name: Vitamin [...] for inhalatio n active Medicati on ID: 532063 B rand Name: Breo Ellipta Send Method: [...] ous pen injector active Medicati on ID: 974265 B rand Name: Trulicit y Send Method: [...] Diagnosis Note 1170 ANDREW ALEJANDRO MD Allergy [address] [place] [address], ite [address] [place] [address] [place] J[place] [address] 03/30/2024 13:29:57 03/30/2024 15:45:29 Perennial allergic rhinitis 433505729 J30.89 2261 LESA BRINK, [facility] Allergy [address] [place] [address],[place] [address] [place] [address] 04/08/2024 12:39:27 04/08/2024 15:21:01 Perennial allergic rhinitis 781094013 J30.89 3805 LESA BRINK [facility] Allergy [address] [place] [address],[place] [address] [place] [address] 04/20/2024 13:25:00 04/20/2024 15:25:45 Perennial allergic rhinitis 026313029 J30.89 4947 LESA BRINK, [facility] Allergy [address] [place] [address],[place] [address] [place] [address] 04/28/2024 14:04:28 04/28/2024 15:40:21 Perennial allergic rhinitis 245009709 J30.89 5878 [facility] Allergy [address] [place] [address] it[address] [place] [address] 05/05/2024 12:11:55 05/05/2024 13:31:24 Perennial allergic rhinitis 232925335 J30.89 15374 [facility], [facility] Allergy [address] [place] [address], it[address] [place] [address] 06/15/2024 13:51:37 06/15/2024 15:10:46 Perennial allergic rhinitis 848129255 J30.89 19807 [facility] All[facility] [address] [place] [address],[place] [address] [place] [address] 06/23/2024 13:05:12 06/23/2024 15:14:31 Perennial allergic rhinitis 849292274 J30.89 33950 IMAN SANTOS RN Allergy [address] [place] [address],[place] [address] [place] [address] 07/06/2024 13:08:13 07/06/2024 14:15:45 Perennial allergic rhinitis 340580437 J30.89 81171 [facility] Allergy [address] [place] [address],[place] [address] [place] [address] 07/21/2024 10:07:04 07/21/2024 11:35:26 Perennial allergic rhinitis 438926624 J30.89 25742 LESA BRINK, A Allergy [address] [facility],[place] [address] [place] [address] 07/29/2024 13:19:08 07/29/2024 13:36:43 Perennial allergic rhinitis 329580642 J30.89 13395 MECHE MASTERSON A Allergy [address] [facility],[place] [address] 100 [place] [address] 09/07/2024 12:39:33 09/07/2024 15:27:20 Perennial allergic rhinitis 366369938 J30.89 40672 MECHE MASTERSON A Allergy [address] [facility],[place] [address] [place] [address] 09/21/2024 10:30:22 09/21/2024 10:55:14 Perennial allergic rhinitis 032464741 J30.89 Health Concerns Section Related Observation LastModified by Organization Detai ls LastModified Time None Recorded Concern Status LastModified by Organization Details LastModified Time None Recorded Advance Directives Directive None Recorded Payers Encounter Date Sequence Insurance Name Policy Number Policy Franks Covered Member ID Franks Member ID Guarantor Name 07/06/2024 1 [place] [employer] Naa Pedersen [id number] Naa Pedersen 07/06/2024 2 [place] Pedersen [id number] Naa Pedersen 07/21/2024 1 [place] [employer] Naa Pedersen [id number] Naa Pedersen 07/21/2024 2 [place] N[place] Pedersen [id number] Naa Pedersen 07/29/2024 1 [place] [employer] Naa Pedersen [id number] [id number] Naa Pedersen 07/29/2024 2 [place] Naa Pedersen [id number] Naa Pedersen 09/07/2024 1 [place] [employer] Naa Pedersen [id number] [id number] Naa Pedersen 09/07/2024 2 [place] [facility] Naa Baird Slava [id number] Naa Pedersen 09/21/2024 1 [place] [facility] Naa Pedersen [id number] [id number] Naa Pedersen 09/21/2024 2 [place] [facility] Naa Pedersen [id number] Naa Pedersen OBGyn Episode No OBEpisode recorded.
--- OUTSIDE RECORDS SUMMARY | 2025-01-22 15:29 | XMS_ITS | Encounter Summary ---
Author Organization [employer] Address [address] [place] [address] Care Team Providers Care Supervisor Boat Outfitting Name Role Phone Renan Lawson MD Primary Care Provide r Richelle Albarado PharmD Unavailable [phone] Reason for Visit * Reason Comments Med Refill Encounter Details Date Type Department Care Team ([facility] st Contact Info) Description 12/27/2024 Refill [facility] [address] [place] [address] Renan Lawson MD [address] [place] [address] Primary hypertension; Diabetes mellitus type 2 with [...] 01/23/2025 2:30 PM EDT Medication Management [facility] [address] [place] [address] Richelle Albarado PharmD [address] [place] [address] 01/26/2025 1:15 PM EDT Office Visit [facility] [address] [place] [address] Renan Lawson MD [address] [place] [address] documented as of this encounter Goals Goal [...] complication, without long-term current use of insulin (CMS/[facility]) documented in this encounter Additional Health Concerns Assessment Noted Time PHQ-9 Depression Total Score: 6 12/29/19 24 1:36 PM EST documented as of this encounter Care Teams Supervisor Boat Outfitting Relationship Specialty Start Date End Date Renan Lawson MD [address] [place] [address] PCP - General Internal Medicine 12/10/21 Richelle Albarado PharmD [address] [place] [address] Pharmacist Internal Medicine 10/25/24 documented as of this encounter
--- OUTSIDE RECORDS SUMMARY | 2025-01-22 15:29 | XMS_ITS | Encounter Summary ---
Author Organization [employer] Address [address] 7[address] [place] [address] Care Team Providers Care Policy Officer Name Role Phone Renan Lawson MD Primary Care Provide r Richelle Albarado PharmD Unavailable [phone] Reason for Visit * Reason Comments Med Refill Encounter Details Date Type Department Care Team ([facility] st Contact Info) Description 11/29/2024 Refill [facility] [address] [place] [address] Edilberto Barahona PharmD [address] [place] [address] Diabetes mellitus type 2 with neurological manifestations [...] Description 01/23/2025 2:30 PM EDT Medication Management [facility] [address] [place] [address] Richelle Albarado PharmD [address] [place] [address] 01/26/2025 1:15 PM EDT Office Visit [address] [address] Renan Lawson MD [address] [place] [address] documented as of this encounter Goals Goal Patient Goal Type Associated Problems Recent Progress Patient-Stated? Author Blood Pressure < 140/90 Blood Pressure 138/89(2023 1:24 PM EST) No Edilberto Barahona PharmD Blood Pressure < 140/90 Blood Pressure Hypertension 138/89(2023 1:24 PM EST) No Edilberto Barahona PharmD Keep fasting blood glucose between 70 and 130 Result Component No Barahona, Jerril, PharmD Keep fasting blood glucose between 70 [...] documented as of this encounter Care Teams Policy Officer Relationship Specialty Start Date End Date Renan Lawson MD [address] [place] [address] PCP - General Internal Medicine 12/10/21 Richelle Albarado PharmD [address] [place] [address] Pharmacist Internal Medicine 10/25/24 documented as of this encounter
--- OUTSIDE RECORDS SUMMARY | 2025-01-22 15:29 | XMS_ITS ---
Author Organization [facility] Address [address] [place] [address] Care Team Providers Care Security System Administrator Name Role Phone Deandre Aparicio MD, Renan Primary Care Provide r Eric Wyman [phone] REASON FOR VISIT Patient presents today for a COLON SCREENING Encounters Encounter Location Date Provider Diagnosis [facility] [address] [place] [address] 01/28/2024 Eric Emmanuel Plan Of Treatment No Information Progress Notes * COLE BOWLESDOB: (69 yo F)Acc No.[id number]:01/28/2024 Progress Notes Patient:?COLE BOWLES Provider:?Eric Emmanuel MD :[id number]???Age:68 Y???Sex:Female D ate:01/28/2024 Address:[address] [place] [address] [address] , [id number] Pcp:Renan chavez MD Subjective: * Chief Complaints: [...] MD Date:? 024 Generated for Rebecca valdez/Marco/eTransmitting on:?01/22/2025 03:29 PM EDT
--- OUTSIDE RECORDS SUMMARY | 2025-01-22 15:29 | XMS_ITS | Encounter Summary ---
Author Organization [employer] Address [address] [place] [address] Care Team Providers Care Cutting Machine Tender Decorative Name Role Phone Renan Lawson MD Primary Care Provide r Edilberto Barahona PharmD Unavailable [phone] Richelle Albarado PharmD Unavailable [phone] Reason for Visit * Reason Onset Date Comments Appointment Request 08/26/2023 Encounter Details Date Type Department Care Team ([facility] st Contact Info) Description 08/26/2023 Telephone [facility] [address] [place], [place] [phone] Renan Lawson MD [address] [place], [place] [phone] Appointment Request Social History Tobacco Use Types Packs/Day Years Used Date Smoking Tobacco: Never Passive Smoke Exposure: Never Smokeless Tobacco: Never Alcohol Use Standard Drinks/Week Comments Never 0 (1 standard drink = 0.6 oz pur e alcohol) Depression Answer Date Recorded Patient Health Questionnaire-9 Score 0 12/02/2022 Housing Stability Answer Date Recorded What is your housing situation today? I have vamshidonita naylor 08/25/[address] you li [...] EDT Medication Management [facility] [address] [place] [address] Richelle Albarado PharmD [address] [place] [address] 01/26/2025 1:15 PM EDT Office Visit [facility] [address] [place] [address] Renan Lawson MD [address] [place] [address] documented as of this encounter Goals Goal [...] 5 2:04 PM EST) No Edilberto Barahona PharmPercy documented as of this encounter Visit Diagnoses Not on filedocumented in this encounter Additional Health Concerns Assessment Noted Time PHQ-9 Depression Total Score: 0 12/02/19 10:15 AM EST documented as of this encounter Care Teams Cutting Machine Tender Decorative Relationship Specialty Start Date End Date Renan Lawson MD [address] [place] [address] PCP - General Internal Medicine 12/10/21 Edilberto Barahona PharmD [address] [place] [address] Pharmacist Internal Medicine 07/14/23 10/24/24 Richelle Albarado PharmD [address] [place] [address] Pharmacist Internal Medicine 10/25/24 documented as of this encounter
--- OUTSIDE RECORDS SUMMARY | 2025-01-22 15:29 | XMS_ITS | Encounter Summary ---
Author Organization [employer] [facility] Address [address] 7t [place] [address] Care Team Providers Care Sawdust Drier Name Role Phone Renan Lawson MD Primary Care Provide r Edilberto Barahona PharmD Unavailable [phone] Richelle Albarado PharmD Unavailable [phone] Reason for Visit * Reason Comments Med Refill Encounter Details Date Type Department Care Team ([facility] st Contact Info) Description 01/15/2024 Refill [facility] [address] [place], [place] [phone] Shantell Will MD [address] [place], [place] [phone] Fibromyalgia Social History Tobacco Use Types Packs/Day [...] Description 01/23/2025 2:30 PM EDT Medication Management [facility] [address] [place] [address] Richelle Albarado PharmD [address] [place] [address] 01/26/2025 1:15 PM EDT Office Visit [facility] [address] [place] [address] Renan Lawson MD [address] [place] [address] documented as of this encounter Goals Goal [...] documented as of this encounter Care Teams Sawdust Drier Relationship Specialty Start Date End Date Renan Lawson MD [address] [place] [address] PCP - General Internal Medicine 12/10/21 Edilberto Barahona PharmD [address] [place] [address] Pharmacist Internal Medicine 07/14/23 10/24/24 Richelle Albarado PharmD [address] [place] [address] Pharmacist Internal Medicine 10/25/24 documented as of this encounter
--- OUTSIDE RECORDS SUMMARY | 2025-01-22 15:29 | XMS_ITS ---
Author Organization [facility] Address [address] [place] [address] Care Team Providers Care Laundry Superintendent Name Role Phone Deandre Aparicio MD, Renan Primary Care Provide r Unavailable Eric Emmanuel [phone] REASON FOR VISIT Pt no show Encounters Encounter Location Date Provider Diagnosis [facility] [address] [place] [address] 01/28/2024 Eric Emmanuel Plan Of Treatment No Information Progress Notes * BOWLES COLEDOB: 6 (68 yo F)Acc No.[id number]:01/28/2024 Patient:?COLE BOWLES :1955???Age:68 Y???Sex:Female Address:[address] [place] [address] [address] , [place] * true * Date:? Generated for Cesari josé miguel/Marco/eTransmitting on:?01/22/2025 03:29 PM EDT
--- OUTSIDE RECORDS SUMMARY | 2025-01-22 15:29 | XMS_ITS | Patient Health Record ---
Author Organization [facility] Address [address] [place] [address] Care Team Providers Care Managing Consultant Name Role Phone Deandre Aparicio MD, Renan Primary Care Provide r Eric Wyman [phone] Reason For Referral No Information Encounters Encounter Location Date Provider Diagnosis [facility] [address] [place] [address] 01/28/2024 Eric Emmanuel Plan Of Treatment No Information Insurance Providers Payer Name Payer Address Payer Phone Subscriber Number Group Number Insured Name Patient Relationship to Insured Coverage Start Date Coverage End Date MEDICARE OF [place] [address] [place] [id number] COLE BOWLES Self - patient is the insured MEDICAID OF [facility] [address] [place] [address] [phone] [id number] COLE BOWLES Self - patient is the insured
--- OUTSIDE RECORDS SUMMARY | 2025-01-22 15:29 | XMS_ITS | Encounter Summary ---
Author Organization [facility] Address [address] 7t [place] [address] Care Team Providers Care Day Care Center Director Name Role Phone Renan Lawson MD Primary Care Provide r Edilberto Barahona PharmD Unavailable [phone] Richelle Albarado PharmD Unavailable [phone] Reason for Referral * Imaging (Routine) - Closed Specialty Diagnoses / Procedures Referred By Tiffany milian Referred To Contact Radiology Diagnoses Right lower quadrant abdominal pain Procedures US Pelvis Transvaginal Moira Edouard FNP [address] [place] [address] Phone: tel: fax: [address] Phone: tel: fax: Referral ID Status Reason Start Date Expiration Date Visits Re quested Visits Authorized [id number] Closed 08/07/2023 08/06/2024 1 1 Encounter Details Date Type Department Care Team (Late st Contact Info) Description 08/07/2023 Orders Only [facility] [address] [place] [address] Moira Edouard FNP [address] [place] [address] Right lower quadrant abdominal pain (Primary Dx) [...] 2:30 PM EDT Medication Management [facility] [address] [place] [address] Richelle Albarado PharmD [address] [place] [address] 01/26/2025 1:15 PM EDT Office Visit [facility] [address] [place] [address] Renan Lawson MD [address] [place] [address] [phone] documented as of this encounter Goals Goal [...] EST Narrative 10/08/2023 5:03 PM EST ? [facility] ?[address] ?[place] [address] ? Ultrasound Report ? Signed ? Patient: Naa Pedersen ?MR#: [id number] ?? [id number] ? : 1955 ?Acct:[id number] ? Age/Sex: 67 / F ?ADM Date: 10/07/23 ? Loc: HO.US ? Attending Dr: Moira Edouard NP ? Ordering Physician: Moira Edouard NP ?? Date of Service: 10/07/23 ?? Procedure(s): US pelvic and transvaginal ?? Accession Number(s): [id number] ? cc: Moira Edouard NP; Renan Cabral [...] by Lynette Underwood MD in OV> ? 10/08/231658 ? DD/ 1146 ? TD/TT: ? Oil Heater Operator: ? Procedure Note [place], [place] - 10/08/[address] [address] Ultrasound Report Signed Patient: Naa Pedersen EMR#: [id number] : 1955cct:[id number] Age/Sex: 67 / FADM Date: 10/07/23 Loc: HO.US Attending Dr: Moira Edouard NP Ordering Physician: Moira Edouard NP Date of Service: 10/07/23 Procedure(s): US pelvic and transvaginal Accession Number(s): [id number] cc: Moira Edouard NP; Renan Cabral MD [...] in OV> 10/08/23 1659 DD/ 1146 TD/TT: Oil Heater Operator: us Moira Edouard GROVE WORKER IMG US PROCEDURES Final Result documented in this encounter Visit Diagnoses Diagnosis Right lower quadrant abdominal pain- Primary documented in this encounter Additional Health Concerns Assessment Noted Time PHQ-9 Depression Total Score: 0 12/02/19 10:15 AM EST documented as of this encounter Care Teams Day Care Center Director Relationship Specialty Start Date End Date Renan Lawson MD [address] [place] [address] PCP - General Internal Medicine 12/10/21 Edilberto Barahona, KyD [address] [place] [address] Pharmacist Internal Medicine 07/14/23 10/24/24 Richelle Albarado PharmD [address] [place] [address] Pharmacist Internal Medicine 10/25/24 documented as of this encounter
--- OUTSIDE RECORDS SUMMARY | 2025-01-22 15:29 | XMS_ITS | Encounter Summary ---
Author Organization [employer] Address [address] 7t [place] [address] Care Team Providers Care Certified Appliance Service Technician Name Role Phone Renan Lawson MD Primary Care Provide r Richelle Albarado PharmD Unavailable [phone] Reason for Visit * Reason Onset Date Comments Chart Prep 01/18/2025 Encounter Details Date Type Department Care Team ([facility] st Contact Info) Description 01/18/[address] [facility] [address] [place] [address] Renan Lawson MD [address] [place], [place] [phone] Chart Prep Social History Tobacco Use Types Packs/Day Years [...] housing situation today? I have vamshi cyndy 01/18/[address] you li [...] encounter Miscellaneous Notes * Telephone Encounter - Shannon Marley [place] - 01/18/2025 1:25 PM EDT Chart Prep Labs: not applicable Images: done Vaccines due: Hep B Due and RSV in Pharmacy Due Referrals: Pain Management Completed and Radiology Completed Screenings: Colonoscopy , Mammogram, and Foot Exam Overdue care gaps: Glucose and PHQ-9 Chart prep for upcoming appt with Dr.Esparza vieyra. LB documented in this encounter Plan of Treatment Upcoming Encounters Date Type Department Care Team (Late st Contact Info) Description 01/23/2025 2:30 PM EDT Medication Management [facility] [address] [place] [address] Richelle Albarado, KyD [address] [place] [address] 01/26/2025 1:15 PM EDT Office Visit [facility] [address] [place] [address] Renan Lawson MD [address] [place] [address] documented as of this encounter Goals Goal [...] documented as of this encounter Care Teams Certified Appliance Service Technician Relationship Specialty Start Date End Date Renan Lawson MD [address] [place] [address] PCP - General Internal Medicine 12/10/21 Richelle Albarado PharmD [address] [place] [address] Pharmacist Internal Medicine 10/25/24 documented as of this encounter
--- OUTSIDE RECORDS SUMMARY | 2025-01-22 15:29 | XMS_ITS | Encounter Summary ---
Author Organization [employer] Address [address] 7t [place] [address] Care Team Providers Care Prefinish Operator Name Role Phone Renan Lawson MD Primary Care Provide r Richelle Albarado PharmD Unavailable [phone] Reason for Visit * Reason Comments Med Refill Encounter Details Date Type Department Care Team ([facility] st Contact Info) Description 12/28/2024 Refill [facility] [address] [place] [address] Renan Lawson MD [address] [place] [address] Social History Tobacco Use Types Packs/Day Years [...] Description 01/23/2025 2:30 PM EDT Medication Management [facility] [address] [place] [address] Richelle Albarado PharmD [address] [place] [address] 01/26/2025 1:15 PM EDT Office Visit [facility] [address] [place] [address] Renan Lawson MD [address] [place] [address] documented as of this encounter Goals Goal [...] documented as of this encounter Care Teams Prefinish Operator Relationship Specialty Start Date End Date Renan Lawson MD [address] [place] [address] PCP - General Internal Medicine 12/10/21 Richelle Albarado PharmD [address] [place] [address] Pharmacist Internal Medicine 10/25/24 documented as of this encounter
--- OUTSIDE RECORDS SUMMARY | 2025-01-22 15:29 | XMS_ITS | Encounter Summary ---
Author Organization [employer] Address [address] 7t [place] [address] Care Team Providers Care Scale Manager Name Role Phone Renan Lawson MD Primary Care Provide r Edilberto Barahona PharmD Unavailable [phone] Richelle Albarado PharmD Unavailable [phone] Encounter Details Date Type Department Care Team ([facility] Contact Info) Description 10/22/2022 Orders Only [facility] [address] [place] [address] Denise Leyva LPN Social History Tobacco Use [...] Description 01/23/2025 2:30 PM EDT Medication Management [facility] [address] [place] [address] Richelle Albarado PharmD [address] [place] [address] 01/26/2025 1:15 PM EDT Office Visit [facility] [address] [place] [address] [phone] Renan Lawson MD [address] [place] [address] documented as of this encounter Visit Diagnoses Not on filedocumented in this encounter Care Teams Scale Manager Relationship Specialty Start Date End Date Renan Lawson MD [address] [place] [address] PCP - General Internal Medicine 12/10/21 Edilberto Barahona PharmD [address] [place] [address] Pharmacist Internal Medicine 07/14/23 10/24/24 Richelle Albarado PharmD [address] [place] [address] Pharmacist Internal Medicine 10/25/24 documented as of this encounter
--- OUTSIDE RECORDS SUMMARY | 2025-01-22 15:29 | XMS_ITS | Encounter Summary ---
Author Organization [employer] Address [address] 7t [place] [address] Care Team Providers Care Senior Sales Operations Manager Name Role Phone Renan Lawson MD Primary Care Provide r Richelle Albarado PharmD Unavailable [phone] Reason for Visit * Reason Comments Care Coordination CHW outreach for SDO H food needs-referral completed Encounter Details Date Type Department Care Team (Latest Contact Info) Description 01/18/2025 Patient Outreach [facility] [address] [place] [address] Renan Lawson MD [address] [place] [address] Care Coordination (CHW outreach for SDOH food needs-referral completed /) Social History Tobacco Use Types Packs/Day Years [...] got money to buy more: Sometimes True 03/12/ 2025 Within the past 12 months,th e food [...] as of this encounter Progress Notes * Rosas Brown - 01/18/2025 10:00 AM EDT CHW Rosas Brown, placed outbound call to patient for assistance with SDOH as a referral was received by the provider. Patient's name and were confirmed. Patient screened positive for the following SDOH food insecurities. CHW referral patient to the local list of pantries in the area for help. Patient verbalizes understanding, and able to agree with plan to follow up. Patient educated on ex tended clinic hours on Mondays through Wednesdays, and Walk-In Urgent Care Located in [facility].Patient provided with after-hours line for [facility], , which offer night time triage serviceand option to transfer to application support technician provider if needed. documented in this encounter Plan of Treatment Upcoming Encounters Date Type Department Care Team (Late st Contact Info) Description 01/23/2025 2:30 PM EDT Medication Management [facility] [address] [place] [address] Richelle Albarado PharmD [address] [place] [address] 01/26/2025 1:15 PM EDT Office Visit [facility] [address] [place] [address] Renan Lawson MD [address] [place], [place] [phone] documented as of this encounter Goals Goal [...] as of this encounter Care Teams Senior Sales Operations Manager Relationship Specialty Start Date End Date Renan Lawson MD [address] [facility] [place] [address] PCP - General Internal Medicine 12/10/21 Richelle Albarado PharmD [address] [place], [place] [address] [place] [address] Pharmacist Internal Medicine 10/25/24 documented as of this encounter
--- OUTSIDE RECORDS SUMMARY | 2025-01-22 15:29 | XMS_ITS | Encounter Summary ---
Author Organization [employer] [facility] Address [address] 7t [place] [address] Care Team Providers Care Tool Worker Name Role Phone Renan Lawson MD Primary Care Provide r Edilberto Barahona PharmD Unavailable [phone] Richelle Albarado PharmD Unavailable [phone] Encounter Details Date Type Department Care Team ([facility] Contact Info) Description 11/14/2022 Telephone [facility] [address] [place], [place] [phone] Renan Lawson MD [address] [place] [address] [phone] Social History Tobacco Use Types Packs/Day Years [...] Upcoming Encounters Date Type Department Care Team ([facility] Contact Info) Description 01/23/2025 2:30 PM EDT Medication Management [facility] [address] [place], [place] [phone] Richelle Albarado, [place] [address] 01/26/2025 1:15 PM EDT Office Visit [facility] [place] [place] [address] Renan Lawson MD Jyoti [place] [phone] documented as of this encounter Visit Diagnoses Not on filedocumented in this encounter Care Teams Tool Worker Relationship Specialty Start Date End Date Renan Lawson MD [place]oti [place] [phone] PCP - General Internal Medicine 12/10/21 Edilberto Barahona, KyD [place] [phone] Pharmacist Internal Medicine 07/14/23 10/24/24 Richelle Albarado, KyD Jyoti [place] [phone] Pharmacist Internal Medicine 10/25/24 documented as of this encounter
--- OUTSIDE RECORDS SUMMARY | 2025-01-22 15:30 | XMS_ITS | Clinical Summary ---
Author Organization [employer] Address [address] [facility] [address] [place] [address] Care Team Providers Care Retail Account Executive Name Role Phone Renan Lawson MD Primary Care Provide r Richelle Albarado PharmD Unavailable [phone] Allergies Active Allergy Reactions Criticality Noted Date [...] to check blood pressure daily 1 kit Active Praluent 75 MG/ML injection PLEASE SEE ATTACHED FOR DETAILED DIRECTIONS Active Breztri Aerosphere 160-9-4.8 MCG/ACT aerosol Active clonazePAM (KlonoPIN) 1 MG tablet Active omeprazole (PriLOSEC) [address] capsuleIndicatio ns:Davis's esophagus without dysplasia TAKE 1 CAPSULE BY MOUTH TWICE DAILY IN THE MORNING AND AT BEDTIME 60 capsule 4 023 Active venlafaxine XR (Effexor XR) 37.5 MG 24 hr capsule TOME EVELIO C PSULA TODOS LOS D EN LA MA WAL[place]KA 023 Active metoclopramide (Reglan) 5 MG tablet Take 5 mg by mouth 3 times daily. 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 Use daily as directed for CGM 1 each Active amLODIPine (Norvasc) 10 MG tabletIndication s:Primary [...] trigger notification to Pharmacy)) Continuous Blood Gluc Relief Man (FreeStyle Richard 2 [place]) device 1 each every 8 (eight) hours. 1 each 023 2024 Discontinued(M ed list cleanup (will not trigger notification to Pharmacy)) glucose blood test strip 1 each by Other route 4 times daily. 100 each 11 023 2024 Discontinued(M ed list cleanup (will [...] home monitoring and current therapy - [facility] to check on status of Freestyle [...] Pt was seen by an orthopaedist at [facility]. Preventative health care 12/02/2022 Overview (09/07/2023): Continues to use [...] for a HDF, She was admitted to [facility] from 11/10--05/2023 She presented with syncope with [...] acute finding. Pt was seen by her Property And Supply Officer Dr Freeman and is currently wearing an [...] atorvastatin, Zetia and Praluent. Last seen by Property And Supply Officer Dr Freeman 07/2024 Assessment & Plan (09/15/2023 [...] Patient under the care of Ben Carson Studio Manager, last seen 07/29/2024 Currently on Ventolin , uses albuterol nebulizarions as well. Dr Carson stopped her other inhalers Assessment & Plan (09/15/2023 3:23 PM EST): Patient under the care of Ben Casron Studio Manager, last seen April Currently on Ventolin and Breztri Aerosphere , uses albuterol nebulizarions as well Assessment & Plan (12/02/2022 8:52 AM EST): Patient under the care of [employer] Studio Manager, last seen January 2022 Currently on [...] PM EST): Pt under the care of Paleology Teacher at [facility] , last seen 10/2023 Currently on a regimen of Dexilant 60 mg po daily and Omeprazole 40 mg po daily Assessment & Plan (12/02/2022 8:52 AM EST): Pt under the care of Paleology Teacher at [facility] Currently on a regimen of Dexilant 60 [...] (05/04/2023 3:40 PM EDT): - Freestyle Richard [place] and Sensor Ordered - A1c is not [...] found on MRI of lower back at [facility] in 2008, unchanged 2009. Sl enlarged 2013. Ref uro Davis's esophagus 01/03/2013 Overview (12/02/2022): Last EGD - Dr. Parviz Sommers, [facility] 01.06.2020 Assessment & Plan (09/29/2024 2:39 PM [...] daily History: - followed by Nixon's office [facility] Cardiology Assessment & Plan (09/29/2024 12:59 PM [...] is being followed by Dr. Jarod Angelo ([address] ). She is now under the care of the Pain Clinic at [facility] Re cent x-ray ordered by them 12/22/2023 [...] is being followed by Dr. Jarod Angelo ([address] ). She is now under the care of the Pain Clinic at [facility] Re cent x-ray ordered by them 12/22/2023 [...] request records from [facility] pt is being followed by Dr. Jarod Angelo ([address] [facility] ). Depressive disorder 11/09/1959 Assessment & Plan (12/23/2022 2:42 PM EST): Patient under the care of psychiatrist at [facility] Currently on a regimen of: Clonazepam 0.5 mg po BID PRN, Trazodone 100 mg po qhs and Mirtazapine 45 mg po at bedtime Pt reports she has agoraphobia and cannot attend Jury Duty She is requesting a letter that due to the fact that she does not speak slovak and has a psychiatric condition that causes her extreme anxiety when she is surrounded by people, she cannot attend Jury duty Assessment & Plan (12/02/2022 8:44 AM EST): Patient under the care of psychiatrist at [facility] Currently on a regimen of: Clonazepam 0.5 [...] Encounters Date Type Department Care Team Description 01/18/2025 Telephone [facility] MEDICINE [address] [place] [phone] Renan Lawson MD Chart Prep 01/18/2025 Patient Outreach [address] [address] Renan Lawson MD Care Coordination (CHW outreach for SDOH food needs-referral completed /) 01/18/2025 Patient Outreach [address] [address] Renan Lawson MD Pre-visit Planning (SDOH Screening positive and Tobacco screening negative) 01/12/2025 Orders Only GENERIC EXTERNAL DATA DEPARTMENT Provider, Generic External Data 12/29/2024 Refill [facility] PEDS [address] [place] [address] Renan Lawson MD Fibromyalgia 12/28/2024 Refill [facility] MEDICINE [address] [place] [address] Renan Lawson MD 12/27/2024 Refill [facility] MEDICINE [address] [place] [address] Renan Lawson MD Primary hypertension; Diabetes mellitus type 2 with neurological manifestations ([facility]/HCC); Type 2 diabetes mellitus without complication, without long-term current use of insulin (CMS/HCC) 12/01/2024 Refill C MEDICINE [address] [place], [place] [phone] Ashtyn Dill NP Primary hypertension 11/29/2024 Refill C MEDICINE [address] [place] [address] Edilberto Barahona, KyD Diabetes mellitus type 2 with neurological manifestations ([facility]/HCC) 11/29/2024 Travel 11/29/2024 Refill C [facility] [address] [place] [address] Renan Lawson MD Mixed hyperlipidemia; Fibromyalgia 11/21/2024 Refill [facility] [address] [place], [place] [phone] Renan Lawson MD Primary hypertension; Mixed hyperlipidemia; Seasonal allergies 10/31/2024 Telephone [facility] MEDICINE [address] [place], [place] [phone] Britni Brink, RN Paperwork/Forms from Last 3 [...] 2:30 PM EDT Medication Management [facility] MEDICINE [address] [place] [phone] Richelle Albarado, PharmD [address] [place] [phone] 01/26/2025 1:15 PM EDT Office Visit [facility] MEDICINE [address] [place] [phone] Renan Lawson MD [address] [place] [address] Health Maintenance Due Date Last Done Comments CT Colonography 1955 Colonoscopy 1955 Colorectal Cancer Screening 1955 FIT DNA/Cologuard 1955 FIT 1955 FOBT 1955 Sigmoidoscopy 1955 Diabetes: Foot Exam 1965 RSV Patients and Patients Aged 60 years or older (1 - Risk 60-74 years 1-dose series) 2015 Diabetes: Urine Protein Screening 12/19/2022 12/19/2021 Hepatitis B Vaccines (2 of 3 - 19+ 3-dose series) 11/21/2024 10/24/2024 Depression Screening 12/29/2024 12/29/2023, 12/29/19 24 Mammogram 02/18/2025 02/19/2024, 03/14/2022 Diabetes: Hemoglobin A1C 04/14/2025 025, 09/09/2024, 07/07/2024, Additional history exists Alcohol/Substance Use Screening 09/29/2025 09/29/2024 Tobacco Screening 09/29/2025 09/29/2024 Eye Exam 12/18/2025 12/18/2023 Lipid Panel 01/12/2026 01/12/2025, 07/10, 05/19/2023, Additional history exists SDOH Screening 01/18/2026 01/18/2025 DTaP/Tdap/Td Vaccines (3 - Td or Tdap) 09/29/2034 09/29/2024, 06/02/2013, 07/29/2007, Additional history exists Zoster Vaccines Completed 05/23/2022, 12/2021, 12/31/2017 Pneumococcal Vaccine: 50+ Years Completed 03/20/2023, 03/10/2022, 08/07/2016, Additional history exists Influenza Vaccine Completed 09/29/2024, , 07/18/2021, Additional history exists COVID-19 Vaccine Completed 10/24/2024, 08/2022, 03/10/2021, Additional history exists Hepatitis C Screening Completed 01/12/2025 HIB Vaccines Aged Out No longer eligi [...] Procedure Name Priority Date/Time Associated Diagnosis Comments [place] SCREEN, IFA, W/REFL TITER AND PATTERN Routine 01/12/2025 2:04 PM EST LIVER KIDNEY MICROSOME (LKM-1) AB (IGG) Routine 01/12/2025 2:04 PM EST ACTIN (SMOOTH MUSCLE) ANTIBODY (IGG) Routine 01/12/2025 2:04 PM EST IMMUNOGLOBULIN A Routine 01/12/2025 2:04 PM EST IMMUNOGLOBULIN G Routine 01/12/2025 2:04 PM EST [id number] QN Routine 2:04 PM EST CERULOPLASMIN Routine 01/12/2025 2:04 PM EST HCV RNA BY PCR, QN RFX MADDISON Routine 01/12/2025 2:04 PM EST MITOCHONDRIAL ANTIBODY WITH REFLEX TO TITER Routine 01/12/2025 2:04 PM EST TISSUE TRANSGLUTAMINASE AB, IGA Routine 01/12/2025 2:04 PM EST ALPHA FETOPROTEIN, TUMOR MARKER Routine 01/12/2025 2:04 PM EST HEPATITIS B SURFACE ANTIGEN, EIA Routine 01/12/2025 2:04 PM EST HIV 1/2 ANTIGEN/ANTIBODY, FOURTH GENERATION W/RFL Routine 01/12/2025 2:04 PM EST HEPATITIS C ANTIBODY Routine 01/12/2025 2:04 PM EST HEPATITIS B CORE AB TOTAL Routine 01/12/2025 2:04 PM EST HEPATITIS B SURFACE ANTIBODY, QUALITATIVE Routine 01/12/2025 2:04 PM EST HEPATITIS A ANTIBODY, TOTAL Routine 01/12/2025 2:04 PM EST LIPID PANEL, [...] Recently Relevant to Health Maintenance Results * Hepatitis C Ab (01/12/2025 2:04 PM EST) Pathologist [facility] Hepatitis C Antibody Nonreactive Nonreactive [facility] Comment:Antibodies to HCV no t detected; does not exclude early acuteHCV infection. 01/12/2025 2:04 PM EST 01/12/2025 2:04 PM EST us Generic External Data Provider LAB BLOOD ORDERAB LES Final Result Performing Organization Address [facility] Co de Phone Number [facility] [address] [place] [address] [phone] * HCV RNA BY PCR, QN RFX MADDISON (01/12/2025 2:04 PM EST) Pathologist [facility] HCV RNA PCR QN <15 NOT DETECTED NOT DETECTED IU/mL [facility] HCV RNA PCR QN <1.18 NOT DETECTED NOT DETECTED Log IU/mL [facility] HCV RNA COMMENT SEE NOTE [facility] Comment:For additional infor matdru, please refer tohttp://education.ePaisa - Payments Anytime | Anywhere/faq/ENK40i3(This link is being provided for informational/Educational purposes only.)THIS TEST WAS PERFORMED AT:[facility] [place] [id number] SNOWDEN MD HCV RNA GENOTYPE,LIPA TNP [facility] Comment:Test not indicated. 01/12/2025 2:04 PM EST 01/12/2025 2:04 PM EST us Generic External Data Provider LAB BLOOD ORDERAB LES Final Result Performing Organization Address [facility] Co de Phone Number [facility] [address] [place] [phone] * Iron And Total Iron Binding Capacity (01/12/2025 2:04 PM EST) Iron 42 30 - 160 mcg/dL [facility] Total Iron Binding Capacity 256 228 - 428 mcg/dL [facility] Percent Iron Saturation 16 15 - 50 % [facility] Unsaturated Iron Binding 214 ug/dL [facility] 01/12/2025 2:04 PM EST 01/12/2025 2:04 PM EST us Generic External Data Provider LAB BLOOD ORDERAB LES Final Result Performing Organization Address [facility] Co de Phone Number [facility] [address] [place] [phone] * Actin (Smooth Muscle) Antibody (IgG) (01/12/2025 2:04 PM EST) Smooth Muscle Antibody <20 <20 U [facility] Comment:Reference Range: <20 U: Negative>or=20 U: [...] with AIH type 1.THIS TEST WAS PERFORMED AT:[id number] [place] [address]ESPZEDYHUSSEIN COREAS MD,PHD 01/12/2025 2:04 PM EST 01/12/2025 2:04 PM EST us Generic External Data Provider LAB BLOOD ORDERAB LES Final Result Performing Organization Address [facility]/ZIP Co de Phone Number [facility] [address] [place] [phone] * Hepatitis A Antibody, Total (01/12/2025 2:04 PM EST) Hepatitis A Antibody IgG REACTIVE Nonreactive [facility] Comment:The presence of IgG anti-HAV implies past HAV infection(recent or distant) or vaccination against HAV. 01/12/2025 2:04 PM EST 01/12/2025 2:04 PM EST Generic External Data Provider LAB BLOOD ORDERAB LES Final Result Performing Organization Address [facility] Co de Phone Number [facility] [address] [place] [phone] * Tissue Transglutaminase Antibody, IgA (01/12/2025 2:04 PM EST) Pathologist [facility] Transglutaminase IgA <1.0 U/mL [facility] Comment:Value Interpretation ----- <15.0 Antibody not detected> or = 15.0 Antibody detectedTHIS TEST WAS PERFORMED AT:[facility] [address] [id number] SNOWDEN MD 01/12/2025 2:04 PM EST 01/12/2025 2:04 PM EST Generic External Data Provider LAB BLOOD ORDERAB LES Final Result Performing Organization Address City/[facility]/ZIP Co de Phone Number [facility] [address] [place] [phone] * Hepatitis B surface antigen, EIA (01/12/2025 2:04 PM EST) Pathologist [facility] Hepatitis B Surface Ag Negative Negative [facility] 01/12/2025 2:04 PM EST 01/12/2025 2:04 PM EST Generic External Data Provider LAB BLOOD ORDERAB LES Final Result Performing Organization Address [facility]/ZIP Co de Phone Number [facility] [address] [place] [phone] * Hepatitis B Core Antibody, Total (01/12/2025 2:04 PM EST) Hepatitis B Core Antibody Nonreactive Nonreactive [facility] 01/12/2025 2:04 PM EST 01/12/2025 2:04 PM EST us Generic External Data Provider LAB BLOOD ORDERAB LES Final Result Performing Organization Address [facility] Co de Phone Number [facility] [address] [place] [phone] * Liver Kidney Microsomal (LKM-1) Antibody??(IgG) (01/12/2025 2:04 PM EST) Liver Kidney Microsomal (LKM-1) Antibody IgG <=20.0 <=20.0 U [facility] Comment:Reference Range: <=2 0.0 Negative 20.1-24.9 [...] patients with hepatitis Cinfection.THIS TEST WAS PERFORMED AT:[employer]/[id number] [place] [address]LJVSQJQHUSSEIN COREAS MD,PHD 01/12/2025 2:04 PM EST 01/12/2025 2:04 PM EST Generic External Data Provider LAB BLOOD ORDERAB LES Final Result Performing Organization Address [facility] Co de Phone Number [facility] [address] [place] [phone] * Mitochondrial Antibody with Reflex to Titer (01/12/2025 2:04 PM EST) Mitochondrial Antibodies NEGATIVE NEGATIVE [facility] Comment:THIS TEST WAS PERFOR MED AT:[facility] [place] [id number] SNOWDEN MD Mitochondrial Ab Titer TNP [facility] 01/12/2025 2:04 PM EST 01/12/2025 2:04 PM EST us Generic External Data Provider LAB BLOOD ORDERAB LES Final Result Performing Organization Address [facility]/ZIP Co de Phone Number [facility] [address] [place] [phone] * HIV-1/2 Antigen and Antibodies, Fourth Generation, with Reflexes (01/12/2025 2:04 PM EST) Pathologist [facility] HIV AB/AG Nonreactive Nonreactive [facility] Comment:HIV-1 p24 Ag and/or HIV-1/HIV-2 Ab not detected.A test result that is nonreactive does not exclude thepossibility of exposure to or infection with HIV-1 and/orHIV-2. Nonreactive results in this assay for individualswith prior exposure to HIV-1 and/or HIV-2 may be due toantigen and antibody levels that are below the limit ofdetection of this assay.The [employer]ovion[employer]Vropa HIV Ag/Ab Combo assay result andsupplemental assay results should be interpreted inconjunction with the patient's clinical presentation,history and other laboratory results. If the results areinconsistent with clinical evidence, additional testing issuggested to confirm the result. 01/12/2025 2:04 PM EST 01/12/2025 2:04 PM EST us Generic External Data Provider LAB BLOOD ORDERAB LES Final Result Performing Organization Address [facility]/ZIP Co de Phone Number [facility] [address] [place] [phone] * Hepatitis B Surface Antibody, Qualitative (01/12/2025 2:04 PM EST) Pathologist [facility] ~Hepatitis B Surface Antibody NONREACTIVE Nonreactive [facility] Comment:Nonreactive: < 8.00 mIU/mL 01/12/2025 2:04 PM EST 01/12/2025 2:04 PM EST Generic External Data Provider LAB BLOOD ORDERAB LES Final Result Performing Organization Address [facility] Co de Phone Number [facility] [address] [place] [phone] * Prothrombin Time-INR (01/12/2025 2:04 PM EST) Pathologist [facility] Prothrombin Time 11.4 10.9 - 12.4 SEC [facility] INTERNATIONAL NORM RATIO 1.0 0.9 - 1.1 [facility] Comment:INTERNATIONAL NORMAL IZED RATIO (INR) REFERENCE [...] 2:04 PM EST 01/12/2025 2:04 PM EST Meaningo External Data Provider LAB BLOOD ORDERAB LES Final Result Performing Organization Address [facility] Co de Phone Number [facility] [address] [place] [phone] * (ABNORMAL) CBC (01/12/2025 2:04 PM EST) Pathologist [facility] White Blood Count 9.2 4.8 - 10.8 X10*3/uL [facility] Red Blood Count 4.69 4.20 - 5.50 X10*6/uL [facility] Hemoglobin 12.0 12.0 - 16.0 g/dl [facility] Hematocrit 38.5 37.0 - 47.0 % [facility] Mean Corpuscular Volume 82.1 80.0 - 98.0 fL [facility] Mean Corpuscular Hemoglobin 25.6(L) 27.0 - 33.0 pg [facility] Mean Corpuscular HGB Conc 31.2 31.0 - 35.0 g/dl [facility] Red Cell Distribution Width 13.8 11.0 - 16.0 % [facility] Platelet Count 203 160 - 400 X10*3/uL [facility] Mean Platelet Volume 9.8 9.4 - 12.3 fL [facility] NRBC Pct Auto 0.0 0.0 - 0.2 /100WBC [facility] NRBC Abs Auto 0.000 0.0 - 0.012 X10*3/uL [facility] 01/12/2025 2:04 PM EST 01/12/2025 2:04 PM EST us Generic External Data Provider LAB BLOOD ORDERAB LES Final Result [facility] [address] [place] [phone] * [place] Screen,IFA, with Reflex to Titer and Pattern (01/12/2025 2:04 PM EST) Anti Nuclear Antibody Screen NEGATIVE NEGATIVE [facility] Comment:[place] IFA is a first l [...] clinicallysuspected inflammatory myopathies.AC-0: NegativeInternational Consensus on W[place]KA Patterns(https://doi.org/10.1515/bzaf-8653-2300)For additional information, please refer tohttp://education.[employer]/faq/VNM835(This link is being provided for informational/educational purposes only.)THIS TEST WAS PERFORMED AT:[facility] [address] [id number] SNOWDEN MD [place] Titer [facility] [place] Pattern TNP [facility] WALES[place] TITER 2 (REF LAB) [facility] [place] Pattern 2 [facility] [place] TITER 3 [facility] [place] PATTERN 3 [facility] 01/12/2025 2:04 PM EST 01/12/2025 2:04 PM EST us Generic External Data Provider LAB BLOOD ORDERAB LES Final Result Performing Organization Address [facility]/ZIP Co de Phone Number [facility] [address] [place] [phone] * (ABNORMAL) Hemoglobin A1c (01/12/2025 2:04 PM EST) Hemoglobin A1c 8.3(H) <6.0 % [facility] Comment:Hemoglobin A1C Refer ence Range Adults: 4.8 - 6.0 % Non diabetic: < 6.0 % Goal: < 7.0 %Additional Action Suggested: > 8.0 %Note: Hemoglobin A1c results are invalid for patients with abnormal amounts of HbF. Blood transfusions may impact the HbA1c concentration in the patient sample. Estimated Average Glucose 192 mg/dL [facility] Comment:eAG = Estimated ave rage glucose which is %A1C expressed asaverage glucose, using the formula of the C2H-MwuihilTcctmsa Glucose study (ADAG), Diabetes Care, Vol.31,#8,Jun. 2007 01/12/2025 2:04 PM EST 01/12/2025 2:04 PM EST us Generic External Data Provider LAB BLOOD ORDERAB LES Final Result Performing Organization Address [facility]/ZIP Co de Phone Number [facility] [address] [place] [phone] * (ABNORMAL) Gamma Glutamyl Transferase (GGT) (01/12/2025 2:04 PM EST) Gamma Glutamyl Transpeptidase 169(H) 7 - 33 U/L [facility] 01/12/2025 2:04 PM EST 01/12/2025 2:04 PM EST us Generic External Data Provider LAB BLOOD ORDERAB LES Final Result Performing Organization Address [facility] Co de Phone Number [facility] [address] [place] [phone] * (ABNORMAL) Immunoglobulin A (01/12/2025 2:04 PM EST) Immunoglobulin A 383(A) 70 - 320 mg/dL [facility] Comment:THIS TEST WAS PERFOR MED AT:[facility] [id number] [place] [address]TAICPFABI SNOWDEN MD 01/12/2025 2:04 PM EST 01/12/2025 2:04 PM EST Generic External Data Provider LAB BLOOD ORDERAB LES Final Result Performing Organization Address [facility] Co de Phone Number [facility] [address] [place] [phone] * Immunoglobulin G (01/12/2025 2:04 PM EST) Immunoglobulin G 1439 600 - 1540 mg/dL [facility] Comment:THIS TEST WAS PERFOR MED AT:[facility] [address] [place], [place] HERMELINDA SNOWDEN MD 01/12/2025 2:04 PM EST 01/12/2025 2:04 PM EST us Generic External Data Provider LAB BLOOD ORDERAB LES Final Result Performing Organization Address City/[facility]/ZIP Co de Phone Number [facility] [address] [place] [phone] * Ferritin (01/12/2025 2:04 PM EST) Ferritin 35 10 - 250 ng/mL [facility] 01/12/2025 2:04 PM EST 01/12/2025 2:04 PM EST Generic External Data Provider LAB BLOOD ORDERAB LES Final Result Performing Organization Address [facility] Co de Phone Number [facility] [address] [place] [address] [phone] * (ABNORMAL) Lipid Panel, Standard (01/12/2025 2:04 PM EST) Triglycerides 271(H) <150 mg/dL [facility] Comment:Desirable Triglyceri de: less than 150 mg/dLBorderline High Triglyceride 150-199 mg/dLHigh Triglyceride: 200-499 mg/dLVery High Triglyceride: greater than or equal to 5OO mg/dL Cholesterol 270(H) <200 mg/dL [facility] Comment:Desirable Cholestero l: less than 200 mg/dLBorderline High Cholesterol: 200-239 mg/dLHigh Cholesterol: greater than 239 mg/dL LDL Cholesterol Calculated 173(H) <100 mg/dL [facility] Comment:Desirable LDL: less than 100 mg/dLNear Optimal/Above Optimal LDL: 110- 129 mg/dLBorderline High LDL: 130-159 mg/dLHigh LDL: 160-189 mg/dLVery High LDL: greater than or equal to 190 mg/dL HDL Cholesterol 43 >40 mg/dL [facility] Comment:Desirable HDL: great er than 40 mg/dL Note: This HDL assay may give artificially low results in patients with liver disease. 01/12/2025 2:04 PM EST 01/12/2025 2:04 PM EST us Generic External Data Provider LAB BLOOD ORDERAB LES Final Result Performing Organization Address City/[facility]/ZIP Co de Phone Number [facility] [address] [place] [address] [phone] * (ABNORMAL) Comprehensive Metabolic Panel (01/12/2025 2:04 PM EST) Sodium 140 135 - 145 mmol/L [facility] Potassium 3.4 3.3 - 5.1 mmol/L [facility] Chloride 107 96 - 108 mmol/L [facility] Carbon Dioxide 22 22 - 29 mmol/L [facility] Anion Gap 14 12 - 20 [facility] Urea Nitrogen (BUN) 10 9 - 16 mg/dL [facility] Creatinine, Serum 0.77 0.5 - 1.4 mg/dL [facility] Estimated Glomerular Filt Rate >60 [facility] Comment:Chronic Kidney Disea se: Estimated GFR < 60 mL/min/1.64n4Lfnulv Kidney Disease: Estimated GFR < 15 mL/min/1.73m2 Glucose 297(H) 60 - 115 mg/dL [facility] Calcium 8.8 8.4 - 10.2 mg/dL [facility] Bilirubin, Total 0.3 0.0 - 1.0 mg/dL [facility] Aspartate Amino Transferase 41(H) 5 - 31 U/L [facility] Alanine Aminotransferase 41(H) 0 - 31 U/L [facility] Total Protein 8.0 6.5 - 8.0 g/dL [facility] Albumin Level 3.9 3.5 - 5.0 g/dL [facility] Alkaline Phosphatase 122(H) 39 - 117 U/L [facility] 01/12/2025 2:04 PM EST 01/12/2025 2:04 PM EST us Generic External Data Provider LAB BLOOD ORDERAB LES Final Result Performing Organization Address [facility]/ZIP Co de Phone Number [facility] [address] [place] [address] [phone] * CT Chest w/o Contrast (11/14/2024 10:23 AM EST) Anatomical Region Laterality Modality Body, Chest Computed Tomogra phy 11/14/2024 10:2 3 AM EST Narrative 11/14/2024 10:25 AM EST ? [facility] ?[address] ?[place] [address] ? CT Scan Report ? Signed ? Patient: Slava,Naa Baird ?MR#: [id number] ?? [id number] ? : 1955 ?Acct:[id number] ? Age/Sex: 68 / F ?ADM Date: 11/11/24 ? Loc: HO.CT ? Attending Dr: Renan Cabral MD ? Ordering Physician: Renan Cabral MD ?? Date of Service: 11/11/24 ?? Procedure(s): CT chest wo IV con ?? Accession Number(s): [id number] ? cc: Renan Cabral MD ? Report Number: ?? [id number]: Total DLP = ??198.00 mGy-cm ? CLINICAL [...] full article can be viewed at: ?? [email or web address]://[email or web address] ? Follow up strategies in solid nodules [...] of estimated risk is available at: https://[email or web address]/[email or web address] ? ##PFU## ? This document has been electronically signed by: Maggie Marina MD on ?? 11/14/2024 10:23:45 ? Dictated By: ?Maggie Marina MD ? Signed By: ?<Electronically signed by Maggie Marina MD in OV> ? 11/14/24 1025 ? DD/ 1023 ? TD/TT: 11/14/24 1023 ? Winding Rack Operator: ? Procedure Note [place] - 11/14/[address] [address] [place] Scan Report Signed Patient: Naa Pedersen EMR#: [id number] : 1955cct:[id number] Age/Sex: 68 / FADM Date: 11/11/24 Loc: HO.CT Attending Dr: Renan Cabral MD Ordering Physician: Renan Cabral MD Date of Service: 11/11/24 Procedure(s): CT chest wo IV con Accession Number(s): [id number] cc: Renan Cabral MD Report Number: [id number]: Total DLP = 198.00 mGy-cm CLINICAL HISTORY: [...] The full article can be viewed at: [email or web address]://goo.[email or web address] Follow up strategies in solid nodules vary [...] 11/14/24 1025 DD/ 1023 TD/TT: 11/14/24 1023 Winding Rack Operator: us Renan Aparicio MD IMG CT PROCEDURES Robert genia Result - Final * BI Mammogram Screening Tomosynthesis Bilateral (02/19/2024 2:10 PM EDT) Anatomical Region Laterality Modality Breast Bilateral Mammography 02/19/2024 2:10 PM EDT Narrative 03/17/2024 10:25 PM EDT ? [facility] ? [address] ?[place], [place] [address] ? Mammography Report ? Signed ? Patient: Pedersen,Christianne ?MR#: [id number] ?? [id number] ? : 1955 ?Acct:[id number] ? Age/Sex: 68 / F ?ADM Date: 02/19/24 ? Loc: HO.MAMMO ? Attending Dr: Renan Cabral MD ? Ordering Physician: Renan Cabral MD ?Resu ?? lts: 2Benign Findings ? Date of Service: 02/19/24 ?Follow Up: 1 Year From Orig ?? inal Mammogram ? Procedure(s): MM tomosynthesis screening BI ?? Accession Number(s): [id number] ? cc: Renan Cabral MD ? EXAMINATION: [...] ? Signed By: ?<Electronically signed by Greta Dotosn MD in OV> ? 03/17/241 ? DD/ 1410 ? TD/TT: ? Winding Rack Operator: ? Procedure Note [place], [place] - 03/17/2024 [facility] [address] [place] [address] [place] [address] Mammography Report Signed Patient: Naa Pedersen EMR#: [id number] : 6Acct:[id number] Age/Sex: 68 / FADM Date: 02/19/24 Loc: HO.MAMMO Attending Dr: Renan Cabral MD Ordering Physician: Renan Cabral MDResu lts: 2Benign Findings Date of Service: 02/19/24Follow Up: 1 Year From Orig inal Mammogram Procedure(s): MM tomosynthesis screening BI Accession Number(s): [id number] cc: Renan Cabral MD EXAMINATION: MM SCREENING [...] in OV> 03/17/24 2221 DD/ 1410 TD/TT: Winding Rack Operator: us Renan Aparicio MD IMG BI PROCEDURES Robert genia Result - Final * ALBUMIN, RANDOM URINE W/CREATININE (12/19/2021 8:51 AM EST) Microalbumin Urine 3.1 See Note: mg/dL [facility] Comment: Reference Range: ?? Reference [...] Creatinine, Urine 108 20 - 275 mg/dL [facility] 12/19/2021 8:51 AM EST us Renan Aparicio MD LAB URINE ORDERABLES Final Result [facility] [address] from Last 3 Months or Most Recently Relevant to Health Maintenance Insurance MEDICARE Member Subscriber Plan / Payer (Ef fective 2024-Present) Name:Naa Pedersen Member ID:[id number] Relation to Subscriber:Self Name:Naa Pedersen Subscriber ID:[id number] Payer ID:STATE Group ID:Not on file Type:Medicare Address: [facility] [address] [phone] [facility] * Guarantor: PedersenNaa moore Account Type Relation to Patient Date of Phone Billing Address Personal/Family Self [address] Care Teams Retail Account Executive Relationship Specialty Start Date End Date Renan Lawson MD [address] [place] [address] PCP - General Internal Medicine 12/10/21 Richelle Albarado PharmD [address] [place] [address] Pharmacist Internal Medicine 10/25/24"
--- OUTSIDE RECORDS SUMMARY | 2025-01-22 15:30 | XMS_ITS | Encounter Summary ---
Author Organization [employer] [facility] Address [address] [place] [address] Care Team Providers Care Soft Metals Hand Engraver Name Role Phone Renan Lawson MD Primary Care Provide r Edilberto Barahona PharmD Unavailable [phone] Richelle Albarado PharmD Unavailable [phone] Reason for Visit * Reason Comments Med Refill Encounter Details Date Type Department Care Team ([facility] st Contact Info) Description 08/26/2024 Refill [facility] [address] [place], [place] [phone] Renan Lawson MD [address] [place], [place] [phone] Social History Tobacco Use Types Packs/Day Years [...] Description 01/23/2025 2:30 PM EDT Medication Management [facility] [address] [place] [phone] Richelle Albarado PharmD [address] [place] [phone] 01/26/2025 1:15 PM EDT Office Visit [facility] [address] [place] [phone] Renan Lawson MD [address] [place] [phone] documented as of this encounter Goals Goal [...] documented as of this encounter Care Teams Soft Metals Hand Engraver Relationship Specialty Start Date End Date Renan Lawson MD [address] [place] [phone] PCP - General Internal Medicine 12/10/21 Edilberto Barahona PharmD [address] [place] [phone] Pharmacist Internal Medicine 07/14/23 10/24/24 Richelle Albarado PharmD [address] [place] [phone] Pharmacist Internal Medicine 10/25/24 documented as of this encounter
[2025-01-22] MEDS: gadobutroL 10 ML VIAL IVPUSH (15:53)
== END 2025-01-22 15:27 | disposition home or self-care (01) ==
LOC: HO.MRI 15:26
PROVIDERS: PCP Internal Medicine; Visit Provider Internal Medicine
DX: K74.60 Unspecified cirrhosis of liver (principal)
CPT/HCPCS: 74183; A9585

== ENCOUNTER 2025-02-01 12:59 | Outpatient (REF) | payer MEDICARE, MEDICAID, SELFPAY | END 2025-02-01 13:00 | disposition home or self-care (01) | LOC: HO.LNP 12:59 | PROVIDERS: PCP Internal Medicine; Visit Provider Nurse Practitioner Family | DX: N39.0 Urinary tract infection, site not specified (principal); Z13.9 Encounter for screening, unspecified | CPT/HCPCS: 81003; 87086; 87088; 87186; 99212 ==

== ENCOUNTER 2025-02-01 12:59 | Outpatient (AMB) | payer MEDICARE, MEDICAID, SELFPAY ==
--- NOTE | 2025-02-01 13:06 | A.OFFVIS_ITS ---
Intake Visit Reasons: 3m/PVR Intake Note: Patient presents to office today for a 3 month follow up on recurrent UTI/PVR Urology Medications: Estradiol Blood Thinner: Aspirin PVR:0ml Wind Farm Engineer Required: Yes Wind Farm Engineer Services: Wind Farm Engineer Present Wind Farm Engineer Name: KATELYN RANDLE Accompanied by: Self / Same As Patient Allergies bee pollen [BEE STINGS] Allergy (Unknown, Verified 02/01/25 13:26) ANAPHYLAXIS morphine [MORPHINE] Allergy (Unknown, Verified 02/01/25 13:26) ITCHING Medication List - Last Reconciled 02/01/25 by AJ Delatorre- albuterol sulfate 2.5 mg (3 mL) inhalation Q4H PRN 30 days albuterol sulfate 90 mcg/actuation (Ventolin HFA) 2 puffs PO QID PRN alirocumab (Praluent Pen) 75 mg subcut Q2W amitriptyline 200 mg PO BEDTIME amlodipine 10 mg PO DAILY 90 days aspirin 81 mg PO DAILY atorvastatin 80 mg PO DAILY blood sugar diagnostic (FreeStyle Lite Strips) Test four times a day or as directed. blood-glucose meter (FreeStyle Lite Meter kit) As Directed vwqzqxiyvc-eglglwdtpfuzd-rfzc 50-325-40 mg 1 tab PO TID PRN cetirizine 10 mg PO BEDTIME cholecalciferol (vitamin D3) 50 mcg PO DAILY clonazepam 1 mg PO BID PRN cyanocobalamin (vitamin B-12) 1,000 mcg PO DAILY cyclobenzaprine 5 mg PO TID PRN 7 days dulaglutide (Trulicity) mg subcut dulaglutide (Trulicity) mg subcut epinephrine 3 mg IM DIRECTED estradiol 0.01%(0.1mg/gram) (Estrace) 1 g vaginal 3XW 90 days ezetimibe (Zetia) 10 mg PO DAILY 90 days fluticasone propionate 50 mcg/actuation 2 sprays intranasal DAILY insulin glargine (Lantus Solostar U-100 Insulin) 40 units (0.4 mL) subcut DAILY insulin lispro (Humalog KwikPen (U-100) Insulin) 1 sliding scale dose subcut QIDACHS lancets (FreeStyle Lancets) Test four times a day or as directed. lancets (TRUEplus Lancets) As directed lisinopril 2.5 mg PO DAILY metformin ER 1,000 mg PO QAM metoclopramide HCl 5 mg PO TID mirtazapine 45 mg PO BEDTIME nebulizers As directed omeprazole 40 mg PO BID pen needle, diabetic Use four times a day or as directed. pregabalin 200 mg PO BID sennosides (senna) 17.2 mg (2 x 8.6 mg) PO BEDTIME 30 days simethicone 180 mg PO QID PRN topiramate 100 mg PO BID trazodone 100 mg PO BEDTIME venlafaxine ER 37.5 mg PO DAILY HPI Comments Details: Naa is a pleasant 69 year old Trinidadian speaking patient of Dr. Misha cormier accompanied by her granddaughter at today's office visit. She has a PMH of obstructive sleep apnea on CPAP, chronic restrictive lung disease, chronic allergic rhinitis, asthma, hypertension, type 2 diabetes, and ACD. She presents to the office today for a follow-up of her recurrent urinary tract infections. In discussion with the patient today she reports having completed antibiotic therapy as prescribed during last office visit and feels resolution of foul- smelling urine shortly after completion of antibiotic therapy. However within a few days feels foul-smelling urine reoccurs. In office urinalysis results reviewed with the patient today 1+ leukocytes positive nitrates. We discussed at length potential causes of recurrent urinary tract infections we also discussed possibility of colonization. Urine culture: 24 E coli, 6/24 E coli, 8/ E coli, 09/01 E coli, 10/02 E coli Previous workup has included a bladder and renal ultrasound that noted bilateral kidneys with no hydronephrosis or renal calculi. Right kidney with benign simple cyst which requires no additional follow-up per radiology report. The bladder is well distended and normal. No bladder mass or diverticula is seen. Pre void bladder volume is approximately 515 mL. Postvoid bladder volume is approximately 90 mL. In office urinalysis results reviewed with the patient and her granddaughter today. PVR 0 mL. When asked she reports compliance with Estrace cream as prescribed. We discussed at length potential causes of recurrent urinary tract infections as well as further treatment options and risks and benefits of these treatment options. When asked she denies urinary urgency, urinary frequency, incontinence, nocturia, hematuria, dysuria, foul smelling urine, changes to urinary stream, flank pain, fever, and or chills. She is happy with her current voiding parameters. She otherwise offers no other issues or concerns at this time. Plan For the management of the recurrent urinary tract infection due to Escherichia coli, I will prescribe Macrobid nitrofurantoin), 100 mg, to be taken twice daily for 14 days. Following the antibiotic treatment, I will start the patient on methenamine and vitamin C therapy to prevent recurrence. This will alter the urinary tract environment to lessen Escherichia coli colonization. The continued use of topical hormone cream and increased fluid intake are recommended. Once the infection is resolved, a further evaluation of her bladder may be considered. Patient was informed and verbally consented to the use of an ambient scribe for clinic note documentation during this visit. Discussion Notes During this visit, I discussed with the patient that her recurrent urinary tract infections are caused by Escherichia coli. I explained that the antibiotic Macrobid will be used initially to treat the active infection, and it should be taken as prescribed for a complete course to maximize effectiveness. I highlighted the role of methenamine and vitamin C post-antibiotic therapy in preventing new infections, emphasizing that vitamin C activates methenamine. Risks, benefits, and expectations of these treatments were reviewed in detail, acknowledging that bladder inspection could not be conducted while she has an active infection as it may worsen her condition. I instructed on the need for careful adherence to treatment regimens and maintaining adequate hydration and advised continuing current hormonal therapy. We discussed that if the recurrent infections persist, further bladder inspection might be warranted. [facility] Medical History Periumbilical abdominal pain EDWIN on CPAP Chronic restrictive lung disease Chronic allergic rhinitis Asthma Other and unspecified hyperlipidemia Essential hypertension Type 2 diabetes mellitus with unspecified complications Atherosclerotic cardiovascular disease Surgical History History of esophagogastroduodenoscopy (EGD) Hx of colonoscopy Family History Mother HTN (hypertension) Heart disease Asthma Maternal Aunt Breast cancer Maternal Aunt Tumor Maternal Aunt Cancer Social History Household Members: Spouse and Family Household Members Other:: 4 household members Housing: Apartment Do you presently have visiting nurse or other home services: No Alcohol intake: never Patient Tobacco Use Status: Never used Tobacco service: No Review of Systems Eyes Reports no additional complaints ENT Reports as per HPI Card Reports as per HPI Resp Reports as per HPI GI Reports as per HPI Reports as per HPI Musc Reports no additional complaints Neuro Reports no additional complaints Psych Reports no additional complaints Endo Reports as per HPI Leo/Lymph Reports no additional complaints Aller/Immun Reports no additional complaints Physical Exam Const General: cooperative, healthy appearing, comfortable, no acute distress, well developed, alert and awake Nutritional Appearance: obese Orientation/consciousness: patient oriented x3 Limitations: no limitations HEENT Head: Yes normal to inspection, Yes normocephalic and Yes atraumatic Ears: hearing grossly normal bilaterally Eyes General: appearance normal, both eyes and all related structures Neck Neck: Yes normal visual inspection and Yes trachea midline Chest Chest palpation & inspection: normal inspection of the chest Resp Effort & Inspection: normal respiratory effort and able to speak in complete sentences Cardio Rate: regular rate GI Inspection: Yes normal to inspection General: Yes no CVA tenderness Back/Spine/Pelvis Back: no CVA tenderness Skin General skin exam: no rashes or lesions noted Neuro General: patient oriented x3 Extrem General: Yes normal to inspection Psych Appearance: grossly normal and well kempt Mental Status: mental status grossly normal Speech and movement: Normal speech and movement present and Clear speech present Affect: normal affect Attitude: cooperative Thought process: Normal thought process present Thought content: Normal thought content present Insight: Fair insight present (Psych) Judgement: Fair judgement present (Psych) Results AMB Urinalysis, Automated UA Leukoctes 15 Bola/uL Last Edit by Aniya Roth on 02/01/25 13:25 UA Nitrite Positive Last Edit by Aniya Roth on 02/01/25 13:25 UA Urobilinogen 17 mg/dL Last Edit by Aniya Roth on 02/01/25 13:25 UA Protein 1 mg/dL Last Edit by Aniya Roth on 02/01/25 13:25 UA pH 6.0 Last Edit by Aniya Roth on 02/01/25 13:25 UA Blood 0 Phil/uL Last Edit by Aniya Roth on 02/01/25 13:25 UA Specific [place] 1.015 Last Edit by Aniya Roth on 02/01/25 13:25 UA Ketone Negative Last Edit by Aniya Roth on 02/01/25 13:25 UA Bilirubin 0 mg/dL Last Edit by Aniya Roth on 02/01/25 13:25 UA Glucose 0 mg/dL Last Edit by Aniya Roth on 02/01/25 13:25 Results Reviewed Results Reviewed: Laboratory Last Values Urine pH (Auto) 6.0 02/01/25 13:23 Specific [place] (Auto) 1.015 02/01/25 13:23 Urine Protein (Auto) 1 mg/dL 02/01/25 13:23 Glucose (UA)(Auto) 0 mg/dL 02/01/25 13:23 Urine Ketones (Auto) Negative 02/01/25 13:23 Urine Blood (Auto) 0 Phil/uL 02/01/25 13:23 Urine Nitrite (Auto) Positive 02/01/25 13:23 Urine Bilirubin (Auto) 0 mg/dL 02/01/25 13:23 Urine Urobilinogen (Auto) 17 mg/dL 02/01/25 13:23 Leukocyte Esterase (Auto) 15 Bola/uL 02/01/25 13:23 Assessment & Plan Assessment & Plan (1) Renal cyst: Code(s): N28.1 - Cyst of kidney, acquired Category: Medical (2) Foul smelling urine: Code(s): R82.90 - Unspecified abnormal findings in urine Category: Medical (3) Recurrent UTI: Code(s): N39.0 - Urinary tract infection, site not specified Category: Medical Plan In office urinalysis results reviewed with the patient today; as noted above; will send for urine culture. PVR 0 mL. Start Macrobid as discussed and prescribed. Continue Estrace cream. Discussed initiation of methenamine and vitamin-C once completed with current antibiotic therapy. We discussed potential near future in office cystoscopy for further assessment evaluation. We discussed potential causes of recurrent urinary tract infections and further treatment options. Educated, and stressed the importance of continuing to drink plenty of water daily. Follow-up in 1-2 months with PVR; or sooner with any issues, concerns, and or questions. Orders: Orders AMB Urinalysis Automated Today Z13.9 - Encounter for screening, unspecified Urine Culture Today N39.0 - Urinary tract infection, site not specified AMB Post Void Residual by ultrasound Today N39.0 - Urinary tract infection, site not specified Medications: New nitrofurantoin macrocrystal must administer with a meal/food 100 mg PO BID 28 caps 0RF 14 days N39.0 - Urinary tract infection, site not specified methenamine hippurate Start once completed antibiotic therapy for current infection 1 g PO DAILY 90 tabs 1RF 90 days N39.0 - Urinary tract infection, site not specified ascorbic acid (vitamin C) Start once completed antibiotic therapy 1 g PO DAILY 90 tabs 1RF 90 days N39.0 - Urinary tract infection, site not specified Patient Instructions: The patient had an opportunity to ask questions regarding the treatment plan. All questions were answered. Physical exam, labs, and imaging were discussed and reviewed in detail. As well as risks, benefits, and discussion of treatment choices. No major barriers to understanding were identified. The patient expressed understanding and agreement with the above treatment plan. The patient was made aware they should contact our office by phone for worsening of their current condition, the appearance of new symptoms, or with any questions or concerns. Compliance is encouraged with any medications and follow up testing that is ordered. It is a privilege to be allowed the opportunity to participate in? your urological care.? Again, if you have any questions or concerns If you have any questions or concerns please do not hesitate to contact me. The office is [phone]. This note is constructed using voice recognition software. While every effort has been made to ensure accuracy division superintendent errors may have been included. Yours sincerely, GALE Delatorre Coding Level of Care Code Est Pt Level 4 (31025) Diagnoses Renal cyst N28.1 Foul smelling urine R82.90 Recurrent UTI N39.0
--- OUTSIDE RECORDS SUMMARY | 2025-02-01 15:25 | XMS_ITS | Encounter Summary ---
Author Organization [employer] Address [address] 7t [place] [address] Care Team Providers Care Employment Counselor Name Role Phone Renan Lawson MD Primary Care Provide r Richelle Albarado PharmD Unavailable [phone] Reason for Visit * Reason Comments Care Coordination CHW outreach for SDO H food needs-referral completed Encounter Details Date Type Department Care Team (Latest Contact Info) Description 01/18/2025 Patient Outreach [facility] MEDICINE 230 [place] [address] Renan Lawson MD 230 [place] [address] Care Coordination (CHW outreach for SDOH food [...] Wednesdays, and Walk-In Urgent Care Located in [facility].Patient provided with after-hours line for [facility], , which offer night time triage serviceand option to transfer to front attendant provider if needed. documented in this encounter Plan of Treatment Upcoming Encounters Date Type Department Care Team ([facility] st Contact Info) Description 03/23/2025 1:15 PM EDT Office Visit [facility] MEDICINE [address] [place] [address] Renan Lawson MD 230 [place] [address] documented as of this encounter Goals Goal Patient Goal Type Associated Problems Recent Progress Patient-Stated? Author Blood Pressure < 140/90 Blood Pressure 138/89(2023 1:24 PM EST) No Edilberto Barahona PharmD Blood Pressure < 140/90 Blood Pressure Hypertension 138/89(2023 1:24 PM EST) No BarahonaDanie molinaril PharmD Keep fasting blood glucose between 70 and 130 Result Component No BarahonaDanieril, PharmD Keep fasting blood glucose between 70 [...] documented as of this encounter Care Teams Employment Counselor Relationship Specialty Start Date End Date Renan Lawson MD [address] [place] [address] PCP - General Internal Medicine 12/10/21 Richelle Albarado PharmD [address] [place] [address] Pharmacist Internal Medicine 10/25/24 documented as of this encounter
--- OUTSIDE RECORDS SUMMARY | 2025-02-01 15:25 | XMS_ITS | Encounter Summary ---
Author Organization [employer] Address [address] 7t [place] [address] Care Team Providers Care Store Sales Consultant Name Role Phone Renan Lawson MD Primary Care Provide r Richelle Albarado PharmD Unavailable [phone] Reason for Visit * Reason Comments Pre-visit Planning SDOH Screening posit gloria and Tobacco screening negative Encounter Details Date Type Department Care Team ([facility] st Contact Info) Description 01/18/2025 Patient Outreach [facility] MEDICINE 230 [place], [place] [phone] Renan Lawson MD [address] [place], [place] [phone] Pre-visit Planning (SDOH Screening positive and Tobacco [...] Wednesdays, and Walk-In Urgent Care Located in [facility]. Patient advised to bring to appointment a photo id and insurance card. Appropriate screenings completed in anticipation of appointment. SDOH positive. Patient looking for assistance with Food insecurities: Sometimes. Referral will be placed. documented in this encounter Plan of Treatment Upcoming Encounters Date Type Department Care Team (Late st Contact Info) Description 03/23/2025 1:15 PM EDT Office Visit [facility] MEDICINE 230 [place], [place] [phone] Renan Lawson MD [address] [place], [place] [phone] documented as of this encounter Goals Goal [...] documented as of this encounter Care Teams Store Sales Consultant Relationship Specialty Start Date End Date Renan Lawson MD [address] [place] [address] PCP - General Internal Medicine 12/10/21 Richelle Albarado PharmD [address] [place] [address] Pharmacist Internal Medicine 10/25/24 documented as of this encounter
--- OUTSIDE RECORDS SUMMARY | 2025-02-01 15:25 | XMS_ITS | Encounter Summary ---
Author Organization [facility] Address [address] 7t [place] [address] Care Team Providers Care Car Restorer Name Role Phone Renan Lawson MD Primary Care Provide r Edilberto Barahona PharmD Unavailable [phone] Richelle Albarado PharmD Unavailable [phone] Encounter Details Date Type Department Care Team (Late st Contact Info) Description 01/13/2023 Abstract [facility] MEDICINE 230 [place], [place] [phone] Renan Lawson MD 230 [place], [place] [phone] Social History Tobacco Use Types Packs/Day Years [...] Description 03/23/2025 1:15 PM EDT Office Visit [facility] MEDICINE [address] [facility] [place] [address] Ren[place] [address] documented as of this encounter Visit Diagnoses Not on filedocumented in this encounter Additional Health Concerns Assessment Noted Time PHQ-9 Depression Total Score: 0 12/02/19 10:15 AM EST documented as of this encounter Care Teams Car Restorer Relationship Specialty Start Date End Date Renan Lawson MD [facility] [place] [address] PCP - General Internal Medicine 12/10/21 Edilberto Barahona, KyD [address] [place] [address] Pharmacist Internal Medicine 07/14/23 10/24/24 Richelle Albarado, KyD [address] [place] [address] Pharmacist Internal Medicine 10/25/24 documented as of this encounter
--- OUTSIDE RECORDS SUMMARY | 2025-02-01 15:26 | XMS_ITS ---
Author Organization [facility] Address [address] [place] [address] Care Team Providers Care English As A Second Language Teacher Name Role Phone Deandre Aparicio MD, Renan Primary Care Provide r Eric Wyman [phone] REASON FOR VISIT Pt no show Encounters Encounter Location Date Provider Diagnosis [facility] [address] [place] [address] 01/28/2024 Eric Emmanuel Plan Of Treatment No Information Progress Notes * BOWLES COLEDOB: (68 yo F)Acc No.[id number]:01/28/2024 Patient:?COLE BOWLES :1955???Age:68 Y???Sex:Female Address:[address] [place] [address] [address] , [place] * true * Date:? Generated for Rebecca valdez/Marco/eTransmitting on:?02/01/2025 03:26 PM EDT
--- OUTSIDE RECORDS SUMMARY | 2025-02-01 15:26 | XMS_ITS | Encounter Summary ---
Author Organization [employer] Address [address] 7t [place] [address] Care Team Providers Care Payroll Administrative Assistant Name Role Phone Renan Lawson MD Primary Care Provide r Richelle Albarado PharmD Unavailable [phone] Reason for Visit * Reason Comments Med Refill Encounter Details Date Type Department Care Team ([facility] st Contact Info) Description 01/23/2025 Refill [facility] MEDICINE 230 [place], [place] [phone] Renan Lawson MD 230 [place], [place] [phone] Diabetes mellitus type 2 with neurological manifestations [...] Description 03/23/2025 1:15 PM EDT Office Visit [facility] MED[facility]INE 230 [place] [address] Renan Lawson MD 230 [place] [address] documented as of this encounter Goals Goal Patient Goal Type Associated Problems Recent Progress Patient-Stated? Author Blood Pressure < 140/90 Blood Pressure 138/89(2023 1:24 PM EST) No Edilberto Barahona PharmPercy Blood Pressure < 140/90 Blood Pressure Hypertension 138/89(2023 1:24 PM EST) No Edilberto Barahona, PharmD Keep fasting blood glucose between 70 and 130 Result Component No Edilberto Barahona PharmD Keep fasting blood glucose between 70 and 130 Result Component Diabetes mellitus type 2 with neurological manifestations On track( 023 2:54 PM EDT) No Edilberto Barahona PharmPercy Hemoglobin A1c < 7.0 Result Component Diabetes mellitus type 2 with neurological manifestations 8.3( 2:04 PM EST) Edilberto Herrera, KyD documented as of this encounter Visit Diagnoses Diagnosis 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
--- OUTSIDE RECORDS SUMMARY | 2025-02-01 15:26 | XMS_ITS | Encounter Summary ---
Author Organization [employer] Address [address] 7t [place] [address] Care Team Providers Care Dredge Boat Engineer Name Role Phone Renan Lawson MD Primary Care Provide r Richelle Albarado PharmD Unavailable [phone] Reason for Visit * Reason Onset Date Comments Paperwork/Forms 01/30/2025 Encounter Details Date Type Department Care Team ([facility] st Contact Info) Description 01/30/2025 Telephone [facility] MEDICINE 230 [place], [place] [phone] Britni Brink, RN 230 [place] [address] Paperwork/Forms Social History Tobacco Use Types Packs/Day [...] Telephone Encounter - Britni Brink RN - 01/30/2025 3:59 PM EDT Received fax from, [employer] requesting OV note to send to Medicare to support need for CGM. Note needs to be in the last 6months and pertain to pt's diabetes. documented in this encounter Plan of Treatment Upcoming Encounters Date Type Department Care Team (Late st Contact Info) Description 03/23/2025 1:15 PM EDT Office Visit [facility] MEDICINE 230 [place] [address] Renan Lawson MD [address] [place] [address] documented as of this encounter Goals Goal Patient Goal Type Associated Problems Recent Progress Patient-Stated? Author Blood Pressure < 140/90 Blood Pressure 138/89(2023 1:24 PM EST) No Edilberto Barahona PharmD Blood Pressure < 140/90 Blood Pressure Hypertension 138/89(2023 1:24 PM EST) No Edliberto Barahona PharmD Keep fasting blood glucose between [...] documented as of this encounter Care Teams Dredge Boat Engineer Relationship Specialty Start Date End Date Renan Lawson MD [address] [place] [address] PCP - General Internal Medicine 12/10/21 Richelle Albarado PharmD [address] [place] [address] Pharmacist Internal Medicine 10/25/24 documented as of this encounter
--- OUTSIDE RECORDS SUMMARY | 2025-02-01 15:26 | XMS_ITS | Encounter Summary ---
Author Organization [employer] Address [address] 7t [place] [address] Care Team Providers Care Fire Dispatcher Name Role Phone Renan Lawson MD Primary Care Provide r Edilberto Barahona PharmD Unavailable [phone] Richelle Albarado PharmD Unavailable [phone] Reason for Visit * Reason Comments Med Refill Encounter Details Date Type Department Care Team ([facility] st Contact Info) Description 02/09/2024 Refill [facility] MEDICINE 230 [place], [place] [phone] Renan Lawson MD 230 [place], [place] [phone] Fibromyalgia Social History Tobacco Use Types Packs/Day [...] Description 03/23/2025 1:15 PM EDT Office Visit [facility] MEDICINE 230 [place] [address] Renan Lawson MD 230 [place] [address] documented as of this encounter Goals Goal [...] documented as of this encounter Care Teams Fire Dispatcher Relationship Specialty Start Date End Date Renan Lawson MD 230 [place] [address] PCP - General Internal Medicine 12/10/21 Edilberto Barahona PharmD [address] [place] [address] Pharmacist Internal Medicine 07/14/23 10/24/24 Richelle Albarado PharmD 230 [place] [address] Pharmacist Internal Medicine 10/25/24 documented as of this encounter
--- OUTSIDE RECORDS SUMMARY | 2025-02-01 15:26 | XMS_ITS | Encounter Summary ---
Author Organization [facility] [facility] Address [address] 7t [place] [address] Care Team Providers Care Customer Support Assistant Name Role Phone Renan Lawson MD Primary Care Provide r Edilberto Barahona PharmD Unavailable [phone] Richelle Albarado PharmD Unavailable [phone] Encounter Details Date Type Department Care Team ([facility] Contact Info) Description 11/14/[address] [facility] MEDICINE 230 [place], [place] [phone] Renan Lawson MD [address] [place] [address] [phone] Social History Tobacco Use Types Packs/Day Years [...] Upcoming Encounters Date Type Department Care Team ([facility] Contact Info) Description 03/23/2025 1:15 PM EDT Office Visit [facility] MEDICINE [address] [place] [address] [phone] Renan Lawson MD [address] [place] [address] documented as of this encounter Visit Diagnoses Not on filedocumented in this encounter Care Teams Customer Support Assistant Relationship Specialty Start Date End Date Renan Lawson MD [address] [place] [address] PCP - General Internal Medicine 12/10/21 Edilberto Barahona PharmD [address] [place] [address] Pharmacist Internal Medicine 07/14/23 10/24/24 Richelle Albarado, KyD [address] [place] [address] Pharmacist Internal Medicine 10/25/24 documented as of this encounter
--- OUTSIDE RECORDS SUMMARY | 2025-02-01 15:26 | XMS_ITS | Encounter Summary ---
Author Organization [employer] Address [address] [facility] [address] 7t [place] [address] Care Team Providers Care Engine Designer Name Role Phone Renan Lawson MD Primary Care Provide r Edilberto Barahona PharmD Unavailable [phone] Richelle Albarado PharmD Unavailable [phone] Reason for Visit * Reason Onset Date Comments Appointment Request 08/26/2023 Encounter Details Date Type Department Care Team ([facility] st Contact Info) Description 08/26/2023 Telephone [facility] MEDICINE 230 [place], [place] [phone] Renan Lawson MD 230 [place], [place] [phone] Appointment Request Social History Tobacco Use Types [...] 03/23/2025 1:15 PM EDT Office Visit [facility] MEDICINE 230 [place] [address] Renan Lawson MD [address] [place] [address] documented as of this encounter Goals Goal [...] documented as of this encounter Care Teams Engine Designer Relationship Specialty Start Date End Date Renan Lawson MD 230 [place] [address] PCP - General Internal Medicine 12/10/21 Edilberto Barahona, Toni [address] [place] [address] Pharmacist Internal Medicine 07/14/23 10/24/24 Richelle Albarado PharmD 230 [place] [address] Pharmacist Internal Medicine 10/25/24 documented as of this encounter
--- OUTSIDE RECORDS SUMMARY | 2025-02-01 15:26 | XMS_ITS | Encounter Summary ---
Author Organization [facility] Address [address] 7t [place] [address] Care Team Providers Care Actuarial Manager Name Role Phone Renan Lawson MD Primary Care Provide r Edilberto Barahona PharmD Unavailable [phone] Richelle Albarado PharmD Unavailable [phone] Encounter Details Date Type Department Care Team (Late st Contact Info) Description 12/17/2022 Abstract [facility] MEDICINE 230 [place], [place] [phone] Renan Lawson MD 230 [place], [place] [phone] Social History Tobacco Use Types Packs/Day Years [...] Description 03/23/2025 1:15 PM EDT Office Visit [facility] [place] [address] [place] [address] documented as of this encounter Visit Diagnoses Not on filedocumented in this encounter Additional Health Concerns Assessment Noted Time PHQ-9 Depression Total Score: 0 12/02/19 10:15 AM EST documented as of this encounter Care Teams Actuarial Manager Relationship Specialty Start Date End Date [place] [address] PCP - General Internal Medicine 12/10/21 Edilberto Barahona, KyD [address] [place] [address] Pharmacist Internal Medicine 07/14/23 10/24/24 Richelle Albarado, KyD [address] [place] [address] Pharmacist Internal Medicine 10/25/24 documented as of this encounter
--- OUTSIDE RECORDS SUMMARY | 2025-02-01 15:26 | XMS_ITS | Encounter Summary ---
Author Organization [employer] Address [address] 7t [place] [address] Care Team Providers Care Brand Protection Manager Name Role Phone Renan Lawson MD Primary Care Provide r Richelle Albarado PharmD Unavailable [phone] Reason for Visit * Reason Onset Date Comments Chart Prep 01/18/2025 Encounter Details Date Type Department Care Team ([facility] st Contact Info) Description 01/18/2025 Telephone [facility] MEDICINE 230 [place] [address] Renan Lawson MD 230 [place], [place] [phone] Chart Prep Social History Tobacco Use Types [...] Description 03/23/2025 1:15 PM EDT Office Visit [facility] MEDICINE [address] [place] [address] Renan Lawson MD 230 [place] [address] documented as of this encounter Goals Goal Patient Goal Type Associated Problems Recent Progress Patient-Stated? Author Blood Pressure < 140/90 Blood Pressure 138/89(2023 1:24 PM EST) No Edilberto Barahona, PharmPercy Blood Pressure < 140/90 Blood Pressure [...] documented as of this encounter Care Teams Brand Protection Manager Relationship Specialty Start Date End Date Renan Lawson MD 230 [place] [address] PCP - General Internal Medicine 12/10/21 Richelle Albarado PharmD 230 [place] [address] Pharmacist Internal Medicine 10/25/24 documented as of this encounter
--- OUTSIDE RECORDS SUMMARY | 2025-02-01 15:26 | XMS_ITS | Encounter Summary ---
Author Organization [email or web address] Address [address] 7t [place] [address] Care Team Providers Care Silica Dry Press Helper Name Role Phone Renan Lawson MD Primary Care Provide r Richelle Albarado PharmD Unavailable [phone] Reason for Visit * Reason Comments Med Refill Encounter Details Date Type Department Care Team ([facility] st Contact Info) Description 11/29/2024 Refill [facility] MEDICINE 230 [place] [address] Edilberto Barahona PharmD 230 [place] [address] Diabetes mellitus type 2 with neurological manifestations [...] encounter Miscellaneous Notes * Telephone Encounter - Edilberto Barahona PharmD - 01/23/2025 2:29 PM EDT Refill already responded to documented in this encounter Plan of Treatment Upcoming Encounters Date Type Department Care Team (Late st Contact Info) Description 03/23/2025 1:15 PM EDT Office Visit [facility] MEDICINE 230 [place] [address] Renan Lawson MD 230 [place] [address] documented as of this encounter Goals Goal Patient Goal Type Associated Problems Recent Progress Patient-Stated? Author Blood Pressure < 140/90 Blood Pressure 138/89(2023 1:24 PM EST) Edilberto Herrera PharmD Blood Pressure < 140/90 Blood Pressure [...] documented as of this encounter Care Teams Silica Dry Press Helper Relationship Specialty Start Date End Date Renan Lawson MD [address] [place] [address] PCP - General Internal Medicine 12/10/21 Richelle Albarado PharmD [address] [place] [address] Pharmacist Internal Medicine 10/25/24 documented as of this encounter
--- OUTSIDE RECORDS SUMMARY | 2025-02-01 15:26 | XMS_ITS ---
Author Organization [facility] Address [address] [place] [address] Care Team Providers Care Master Fire Control Technician Name Role Phone Deandre Aparicio MD, Renan Primary Care Provide r Eric Wyman [phone] REASON FOR VISIT Patient presents today for a COLON SCREENING Encounters Encounter Location Date Provider Diagnosis [facility] [address] [place] [phone] 01/28/2024 Eric Emmanuel Plan Of Treatment No Information Progress Notes * COLE BOWLESDOB: (69 yo F)Acc No.[id number]:01/28/2024 Progress Notes Patient:?COLE BOWLES Provider:?Eric Emmanuel MD :1955???Age:68 Y???Sex:Female D ate:01/28/2024 Address:[address] [place] [address] [address] [id number] Pcp:Renan chavez MD Subjective: * Chief Complaints: [...] MD Date:? 024 Generated for Rebecca valdez/Marco/eTransmitting on:?02/01/2025 03:25 PM EDT
--- OUTSIDE RECORDS SUMMARY | 2025-02-01 15:26 | XMS_ITS | Encounter Summary ---
Author Organization [employer] Address [address] 7t [place] [address] Care Team Providers Care Bandsaw Operator Name Role Phone Renan Lawson MD Primary Care Provide r Richlele Albarado PharmD Unavailable [phone] Encounter Details Date Type Department Care Team (Latest Contact Info) Description 01/23/2025 Travel Social History Tobacco Use Types Packs/Day Years [...] t he electric, gas, oil or water Verious threatened to shut off services in your [...] 03/23/2025 1:15 PM EDT Office Visit [facility] MEDICINE 230 [place] [address] Renan Lawson MD 230 [place] [address] documented as of this encounter Goals Goal Patient Goal Type Associated Problems Recent Progress Patient-Stated? Author Blood Pressure < 140/90 Blood Pressure 138/89(2023 1:24 PM EST) No Edilberto Barahona PharmPercy Blood Pressure < 140/90 Blood Pressure Hypertension 138/89(2023 1:24 PM EST) No Edilberto Barahona, PharmD Keep fasting blood glucose between 70 and 130 Result Component No Danie Barahonaril, PharmD Keep fasting blood glucose between 70 and 130 Result Component Diabetes mellitus type 2 with neurological manifestations On track( 023 2:54 PM EDT) No Edilberto Barahona, PharmD Hemoglobin A1c < 7.0 Result Component Diabetes mellitus type 2 with neurological manifestations 8.3( 2:04 PM EST) No Edilberto Barahona PharmD documented as of this encounter Visit Diagnoses Not on filedocumented in this encounter Additional Health Concerns Assessment Noted Time PHQ-9 Depression Total Score: 6 12/29/19 24 1:36 PM EST documented as of this encounter Care Teams Bandsaw Operator Relationship Specialty Start Date End Date Renan Lawson MD [address] [place] [address] PCP - General Internal Medicine 12/10/21 Richelle Albarado PharmD [address] [place] [address] Pharmacist Internal Medicine 10/25/24 documented as of this encounter
--- OUTSIDE RECORDS SUMMARY | 2025-02-01 15:26 | XMS_ITS | Encounter Summary ---
Author Organization [employer] [facility] Address [address] [place] [address] Care Team Providers Care Hoisting Engineer Name Role Phone Renan Lawson MD Primary Care Provide r Edilberto Barahona PharmD Unavailable [phone] Richelle Albarado PharmD Unavailable [phone] Reason for Referral * Imaging (Routine) - Closed Specialty Diagnoses / Procedures Referred By Tiffany milian Referred To Contact Radiology Diagnoses Right lower quadrant abdominal pain Procedures US Pelvis Transvaginal Moira Edouard FNP [address] [place] [address] Phone: tel: fax: [address] Phone: tel: fax: Referral ID Status Reason Start Date Expiration Date Visits Re quested Visits Authorized [id number] Closed 08/07/2023 08/06/2024 1 1 Encounter Details Date Type Department Care Team (Late st Contact Info) Description 08/07/2023 Orders Only [facility] [address] [place] [address] Moira Edouard FNP [address] [place] [address] Right lower quadrant abdominal pain (Primary Dx) [...] Description 03/23/2025 1:15 PM EDT Office Visit [facility] MEDICINE [address] [place] [address] Renan Lawson MD [address] [place] [address] documented as of this encounter Goals Goal [...] EST Narrative 10/08/2023 5:03 PM EST ? [facility] ?[address] ?[place] [address] ? Ultrasound Report ? Signed ? Patient: Slava,Naa Baird ?MR#: [id number] ?? [id number] ? : 1955 ?Acct:[id number] ? Age/Sex: 67 / F ?ADM Date: 10/07/23 ? Loc: HO.US ? Attending Dr: Moira Edouard NP ? Ordering Physician: Moira Edouard NP ?? Date of Service: 10/07/23 ?? Procedure(s): US pelvic and transvaginal ?? Accession Number(s): [id number] ? cc: Moira Edouard NP; Renan Cabral [...] by Lynette Underwood MD in OV> ? 11/30/23 1659 ? DD/DT: 11/29/ 1146 ? TD/TT: ? Deposition Operator: ? Procedure Note Donotuseinterpreter, Image - 10/08/[address] [address] Ultrasound Report Signed Patient: Naa Pedersen EMR#: [id number] : 6Acct:[id number] Age/Sex: 67 / FADM Date: 10/07/23 Loc: HO.US Attending Dr: Moira Edouard NP Ordering Physician: Moira Edouard NP Date of Service: 10/07/23 Procedure(s): US pelvic and transvaginal Accession Number(s): [id number] cc: Moira Edouard NP; Renan Cabral MD [...] in OV> 10/08/23 1659 DD/ 1146 TD/TT: Deposition Operator: us Moira Edouard MANAGER OF ORGANIZATIONAL DEVELOPMENT IMG US PROCEDURES Final Result documented in this encounter Visit Diagnoses Diagnosis Right lower quadrant abdominal pain- Primary documented in this encounter Additional Health Concerns Assessment Noted Time PHQ-9 Depression Total Score: 0 01/24/20 23 10:15 AM EST documented as of this encounter Care Teams Hoisting Engineer Relationship Specialty Start Date End Date Renan Lawson MD [address] [place] [address] PCP - General Internal Medicine 12/10/21 Edilberto Barahona PharmD [address] [place] [phone] Pharmacist Internal Medicine 07/14/23 10/24/24 Richelle Albarado PharmD [address] [place] [phone] Pharmacist Internal Medicine 10/25/24 documented as of this encounter
--- OUTSIDE RECORDS SUMMARY | 2025-02-01 15:26 | XMS_ITS | Encounter Summary ---
Author Organization [employer] Address [address] [place] [address] Care Team Providers Care Software Development Specialist Name Role Phone Renan Lawson MD Primary Care Provide r Richelle Albarado PharmD Unavailable Reason for Visit * Reason Comments Med Refill Encounter Details Date Type Department Care Team ([facility] st Contact Info) Description 01/25/2025 Refill [facility] MED & PEDS [address] [place], [place] [phone] Renan Lawson MD [address] [place] [address] Fibromyalgia Social History Tobacco Use Types Packs/Day [...] 03/23/2025 1:15 PM EDT Office Visit [facility] MEDICINE [address] [place] [address] Renan aLwson MD [address] [place] [address] documented as of this encounter Goals Goal [...] Jerril, PharmD documented as of this encounter Visit Diagnoses Diagnosis Fibromyalgia Unspecified myalgia and myositis documented in this encounter Additional Health Concerns Assessment Noted Time PHQ-9 Depression Total Score: 6 12/29/19 24 1:36 PM EST documented as of this encounter Care Teams Software Development Specialist Relationship Specialty Start Date End Date Renan Lawson MD [address] [place] [address] PCP - General Internal Medicine 12/10/21 Richelle Albarado, KyD [address] [place] [address] Pharmacist Internal Medicine 10/25/24 documented as of this encounter
--- OUTSIDE RECORDS SUMMARY | 2025-02-01 15:26 | XMS_ITS | Encounter Summary ---
Author Organization [facility] Address [address] [place] [address] Care Team Providers Care Ski Maker Wood Name Role Phone Renan Lawson MD Primary Care Provide r Edilberto Barahona PharmD Unavailable [phone] Richelle Albarado PharmD Unavailable [phone] Reason for Visit * Reason Comments Med Refill Encounter Details Date Type Department Care Team ([facility] st Contact Info) Description 01/15/2024 Refill [facility] MEDICINE [address] [place], [place] [phone] Shantell iWll MD [address] [place], [place] [phone] Fibromyalgia Social History Tobacco Use Types Packs/Day [...] 1:15 PM EDT Office Visit [facility] MEDICINE [address] [place] [address] Renan Lawson MD [address] [place] [address] documented as of this encounter Goals Goal [...] documented as of this encounter Care Teams Ski Maker Wood Relationship Specialty Start Date End Date Renan Lawson MD [address] [place] [address] PCP - General Internal Medicine 12/10/21 Edilberto Barahona PharmD [address] [place] [address] Pharmacist Internal Medicine 07/14/23 10/24/24 Richelle Albarado PharmD [address] [place] [phone] Pharmacist Internal Medicine 10/25/24 documented as of this encounter
--- OUTSIDE RECORDS SUMMARY | 2025-02-01 15:26 | XMS_ITS | Encounter Summary ---
Author Organization [employer] [facility] Address [address] [place] [address] Care Team Providers Care Cap And Hat Production Supervisor Name Role Phone Renan Lawson MD Primary Care Provide r Edilberto Barahona PharmD Unavailable [phone] Richelle Albarado PharmD Unavailable [phone] Encounter Details Date Type Department Care Team (Late Contact Info) Description 10/22/2022 Orders Only [facility] MED [facility] PEDS [address] [place] [address] Denise Leyva LPN Social History Tobacco Use [...] Department Care Team (Late Contact Info) Description 03/23/2025 1:15 PM EDT Office Visit [facility] MEDICINE [address] [place] [address] Renan Lawson MD [address] [place] [address] documented as of this encounter Visit Diagnoses Not on filedocumented in this encounter Care Teams Cap And Hat Production Supervisor Relationship Specialty Start Date End Date Renan Lawson MD [address] [place] [address] PCP - General Internal Medicine 12/10/21 Edilberto Barahona, KyD [address] [place] [phone] Pharmacist Internal Medicine 07/14/23 10/24/24 Richelle Albarado, KyD [address] [place] [phone] Pharmacist Internal Medicine 10/25/24 documented as of this encounter
--- OUTSIDE RECORDS SUMMARY | 2025-02-01 15:26 | XMS_ITS | Encounter Summary ---
Author Organization [employer] Address [address] [place] [address] Care Team Providers Care Telepathist Name Role Phone Renan Lawson MD Primary Care Provide r Richelle Albarado PharmD Unavailable [phone] Encounter Details Date Type Department Care Team ([facility] Contact Info) Description 01/12/2025 Orders Only [...] Office Visit [facility] [address] [place] [address] Renan Lawson MD [address] [place] [address] documented as of this encounter Goals Goal [...] Procedure Name Priority Date/Time Associated Diagnosis Comments MR ABDOMEN W AND WO CONTRAST Routine 01/22/2025 3:49 PM EDT HEPATITIS C ANTIBODY Routine 01/12/2025 2:04 PM EST HCV RNA BY PCR, QN RFX MADDISON Routine 01/12/2025 2:04 PM EST DRUG MONITORING, PHOSPHATIDYLETHANOL (PETH), BLOOD Routine 01/12/2025 2:04 PM EST IRON AND TOTAL IRON BINDING CAPACITY Routine 01/12/2025 2:04 PM EST ACTIN (SMOOTH MUSCLE) ANTIBODY (IGG) Routine 01/12/2025 2:04 PM EST [id number] QN Routine 2:04 PM EST HEPATITIS A ANTIBODY, TOTAL Routine 01/12/2025 2:04 PM EST TISSUE TRANSGLUTAMINASE AB, IGA Routine 01/12/2025 2:04 PM EST CERULOPLASMIN Routine 01/12/2025 2:04 PM EST ALPHA FETOPROTEIN, TUMOR MARKER Routine 01/12/2025 2:04 PM EST HEPATITIS B SURFACE ANTIGEN, EIA Routine 01/12/2025 2:04 PM EST HEPATITIS B CORE AB TOTAL Routine 2024 2:04 PM EST LIVER KIDNEY MICROSOME (LKM-1) [...] EST documented in this encounter Results * MR Abdomen w/ and w/o Contrast (01/22/2025 3:49 PM EDT) Anatomical Region Laterality Modality Abdomen Magnetic Resonan ce 01/22/2025 3:49 PM EDT Narrative 01/23/2025 7:09 AM EDT ? [facility] ?[address] ?[place] [address] ? Magnetic Resonance Report ? Signed ? Patient: Pedersen,Christianne ?MR#: [id number] ?? [id number] ? : 1955 ?Acct:[id number] ? Age/Sex: 69 / F ?ADM Date: 03/16/25 ? Loc: HO.MRI ? Attending Diego Conn MD ? Ordering Physician: Jennifer Conn MD ?? Date of Service: 01/22/25 ?? Procedure(s): MR abdomen wo/w con ?? Accession Number(s): [id number] ? cc: Renan Cabral MD; Jennifer Conn MD ? EXAMINATION: ??MRI Abdomen without and with contrast ? HISTORY: K74.60 - Unspecified cirrhosis of liver ? COMPARISON: ??Correlation is made with an abdominal ultrasound dated ?? 08/08/[address] dated 11/11/2024. ? TECHNIQUE: Axial in and out of phase T1-weighted gradient echo, axial ?? diffusion weighted, and axial and coronal HASTE T2 with fat saturation ?? images were obtained through the abdomen. ?? Subsequently, fat ?? suppressed axial and coronal T1-weighted images were obtained after the ?? intravenous administration of 10 mL Gadavist. ? FINDINGS: ??There is diffuse loss of signal intensity within the liver ?? on opposed phase images, compatible with steatosis. The liver is mildly ?? enlarged. No enhancing mass is seen. The hepatic and portal veins are ?? patent. There is no intra or extrahepatic biliary ductal dilatation. ?? The gallbladder is unremarkable. ? The spleen is mildly enlarged. No focal splenic lesion is identified. ?? The pancreas and adrenals are unremarkable. There is a 10.0 cm cyst at ?? the lower pole of the right kidney and a 1.2 cm cyst at the lower pole ?? of the left kidney. No retroperitoneal lymphadenopathy or ascites is ?? identified in the upper abdomen. The visualized bones demonstrate ?? normal signal intensity. There is a tiny nodule at the right lung base ?? as noted on chest CT. ? MR/MR abdomen wo/w con ?? IMPRESSION: ? 1. Hepatosplenomegaly and hepatic steatosis. No enhancing liver mass is ?? identified. ? 2. Bilateral renal cysts as described. ? Electronically signed by: ??Eric Cooper MD ??01/23/2025 07:06 AM EDT ?? RP ? Dictated By: ?Eric Cooper MD ? Signed By: ?<Electronically signed by Eric Cooper MD in OV> ?01/23/25 0706 ? DD/ 1549 ? TD/TT: 01/22/25 1612 ? [facility]: ? Procedure Note Martin, Image - 01/23/[address] [address] Magnetic Resonance Report Signed Patient: Naa Pedersen EMR#: [id number] : 6Acct:[id number] Age/Sex: 69 / FADM Date: 01/22/25 Loc: HO.MRI Attending Dr: Jennifer Conn MD Ordering Physician: Jennifer Conn MD Date of Service: 01/22/25 Procedure(s): MR abdomen wo/w con Accession Number(s): [id number] cc: Renan Cabral MD; Jennifer Conn MD EXAMINATION: MRI Abdomen without and with contrast HISTORY: K74.60 - Unspecified cirrhosis of liver COMPARISON: Correlation is made with an abdominal ultrasound dated 08/08/[address] dated 11/11/2024. TECHNIQUE: Axial in and out of phase T1-weighted gradient echo, axial diffusion weighted, and axial and coronal HASTE T2 with fat saturation images were obtained through the abdomen. Subsequently, fat suppressed axial and coronal T1-weighted images were obtained after the intravenous administration of 10 mL Gadavist. FINDINGS: There is diffuse loss of signal intensity within the liver on opposed phase images, compatible with steatosis. The liver is mildly enlarged. No enhancing mass is seen. The hepatic and portal veins are patent. There is no intra or extrahepatic biliary ductal dilatation. The gallbladder is unremarkable. The spleen is mildly enlarged. No focal splenic lesion is identified. The pancreas and adrenals are unremarkable. There is a 10.0 cm cyst at the lower pole of the right kidney and a 1.2 cm cyst at the lower pole of the left kidney. No retroperitoneal lymphadenopathy or ascites is identified in the upper abdomen. The visualized bones demonstrate normal signal intensity. There is a tiny nodule at the right lung base as noted on chest CT. MR/MR abdomen wo/w con IMPRESSION: 1. Hepatosplenomegaly and hepatic steatosis. No enhancing liver mass is identified. 2. Bilateral renal cysts as described. Electronically signed by: Eric Cooper MD 01/23/2025 07:06 AM EDT Dictated By: Eric Cooper MD Signed By: <Electronically signed by Eric Cooper MD in OV> 01/23/25 0706 DD/ 1549 TD/TT: 01/22/25 1612 [facility]: [facility] External Provider IMG MRI PROCEDURES Final Result * Drug Monitoring, Phosphatidylethanol (PEth), Blood (01/12/2025 2:04 PM EST) Phosphatidylethanol, Blood NEGATIVE [facility] Comment:REFERENCE RANGE: <20 ng/mLTHIS TEST PERFORMED AT:[employer] [phone] DIRECTOR: HUSSEIN COREAS MD, PHD [facility] 16:0/18:2 (PLPEth) NEGATIVE [facility] Comment:REFERENCE RANGE: <20 ng/mLTHIS TEST PERFORMED AT:[employer]/[facility]ITALFAA[facility]DA[facility] [id number] [place] [phone] DIRECTOR: HUSSEIN COREAS MD, PHD [facility] Comments SEE NOTE [facility] Comment:This drug testing is for medical treatment only. Analysiswas performed as non-forensic testing and these resultsshould be used only by healthcare providers to renderdiagnosis or treatment, or to monitor progress of medicalconditions.LDT Notes:Confirmation tests were developed and their analyticalperformance characteristics have been determined by [employer]. It has not been cleared or approved by the FDA.This assay has been validated pursuant to the CLIAregulations and is used for clinical purposes.Healthcare Providers needing Interpretation assistance,please contact us at [phone] ( ) M-F,8am to 10pm ESTTHIS TEST PERFORMED AT:[employer] [address] [phone] DIRECTOR: JESUS SNOWDEN MD 01/12/2025 2:04 PM EST 01/12/2025 2:04 PM EST us Generic External Data Provider LAB BLOOD ORDERAB LES Final Result Performing Organization Address [facility]/ZIP Co de Phone Number [facility] [address] [place] [phone] * WALESKA Screen,IFA, with Reflex to Titer and Pattern (01/12/2025 2:04 PM EST) Anti Nuclear Antibody Screen NEGATIVE NEGATIVE [facility] Comment:WALESKA IFA is a first l ine screen for detecting thepresence of up to approximately 150 autoantibodies invarious autoimmune diseases. A negative WALESKA IFA resultsuggests an WALESKA-associated autoimmune disease is notpresent at this time, but is not definitive. If thereis high clinical suspicion for Sjogren's syndrome,testing for anti-SS-A/Ro antibody should be considered.Anti-Ondian-1 antibody should be considered for clinicallysuspected inflammatory myopathies.AC-0: NegativeInternational Consensus on WALESKA Patterns(https://doi.org/10.1515/dhpq-5315-3138)For additional information, please refer tohttp://education.Scodix/faq/RRT437(This link is being provided for informational/educational purposes only.)THIS TEST WAS PERFORMED AT:[employer] [place] [id number] SNOWDEN MD WALESKA Titer [facility] W[place] Pattern [facility] WALESKA TITER 2 (REF LAB) [facility] W[place]KA Pattern 2 [facility] W[place]KA TITER 3 [facility] W[place] PATTERN 3 [facility] 01/12/2025 2:04 PM EST 01/12/2025 2:04 PM EST us Generic External Data Provider LAB BLOOD ORDERAB LES Final Result Performing Organization Address City/[facility]/ZIP Co de Phone Number [facility] [address] [place] [address] [phone] * Liver Kidney Microsomal (LKM-1) Antibody??(IgG) (01/12/2025 2:04 PM EST) Liver Kidney Microsomal (LKM-1) Antibody IgG <=20.0 <=20.0 U [facility] Comment:Reference Range: <=2 0.0 Negative 20.1-24.9 [...] patients with hepatitis Cinfection.THIS TEST WAS PERFORMED AT:[employer]/[id number] [place] [address]RMRJZTVHUSSEIN COREAS MD,PHD 01/12/2025 2:04 PM EST 01/12/2025 2:04 PM EST us Generic External Data Provider LAB BLOOD ORDERAB LES Final Result [facility] [address] [place] [address] [phone] * Actin (Smooth Muscle) Antibody (IgG) (01/12/2025 2:04 PM EST) Smooth Muscle Antibody <20 <20 U [facility] Comment:Reference Range: <20 U: Negative>or=20 U: [...] with AIH type 1.THIS TEST WAS PERFORMED AT:[employer]/[id number] [place] [address]MOQCGBHHUSSEIN COREAS MD,PHD 01/12/2025 2:04 PM EST 01/12/2025 2:04 PM EST us Generic External Data Provider LAB BLOOD ORDERAB LES Final Result Performing Organization Address City/[facility] Co de Phone Number [facility] [address] [place] [phone] * (ABNORMAL) Immunoglobulin A (01/12/2025 2:04 PM EST) Immunoglobulin A 383(A) 70 - 320 mg/dL [facility] Comment:THIS TEST WAS PERFOR MED AT:[employer] [address] [address]ZMZNWJESUS SNOWDEN MD 01/12/2025 2:04 PM EST 01/12/2025 2:04 PM EST us Generic External Data Provider LAB BLOOD ORDERAB LES Final Result Performing Organization Address [facility] Phone Number [facility] [address] [place] [phone] * Immunoglobulin G (01/12/2025 2:04 PM EST) Immunoglobulin G 1439 600 - 1540 mg/dL [facility] Comment:THIS TEST WAS PERFOR MED AT:[employer] [address] [address]QXXJYJESUS SNOWDEN MD 01/12/2025 2:04 PM EST 01/12/2025 2:04 PM EST us Generic External Data Provider LAB BLOOD ORDERAB LES Final Result Performing Organization Address [facility] Co de Phone Number [facility] [address] [place] [phone] * Rtxlp-5-Egnanlfdaar, Quantitative (01/12/2025 2:04 PM EST) Zhdxe-0-Mipwlifs sin QN 172 83 - 199 mg/dL [facility] Comment:THIS TEST WAS PERFOR MED AT:[employer] [address] [address]MGXOFJESUS SNOWDEN MD 01/12/2025 2:04 PM EST 01/12/2025 2:04 PM EST Generic External Data Provider LAB BLOOD ORDERAB LES Final Result Performing Organization Address City/[facility]/ZIP Co de Phone Number [facility] [address] [place] [address] [phone] * Ceruloplasmin (01/12/2025 2:04 PM EST) Pathologist [facility] Ceruloplasmin 33 14 - 48 mg/dL [facility] Comment:THIS TEST WAS PERFOR MED AT:[employer] [address] [address]BXFIMJESUS SNOWDEN MD 01/12/2025 2:04 PM EST 01/12/2025 2:04 PM EST Generic External Data Provider LAB BLOOD ORDERAB LES Final Result Performing Organization Address [facility]/ZIP Co de Phone Number [facility] [address] [place] [phone] * HCV RNA BY PCR, QN RFX MADDISON (01/12/2025 2:04 PM EST) Pathologist [facility] HCV RNA PCR QN <15 NOT DETECTED NOT DETECTED IU/mL [facility] HCV RNA PCR QN <1.18 NOT DETECTED NOT DETECTED Log IU/mL [facility] HCV RNA COMMENT SEE NOTE [facility] Comment:For additional infor matdru, please refer tohttp://education.IKOTECH/faq/FAZ48g8(This link is being provided for informational/Educational purposes only.)THIS TEST WAS PERFORMED AT:[employer] [address] [address]MZONYRENETTA SNOWDEN MD HCV RNA GENOTYPE,LIPA [facility] Comment:Test not indicated. 01/12/2025 2:04 PM EST 01/12/2025 2:04 PM EST Generic External Data Provider LAB BLOOD ORDERAB LES Final Result Performing Organization Address City/[facility] Co de Phone Number [facility] [address] [place] [phone] * Mitochondrial Antibody with Reflex to Titer (01/12/2025 2:04 PM EST) Pathologist [facility] Mitochondrial Antibodies NEGATIVE NEGATIVE [facility] Comment:THIS TEST WAS PERFOR MED AT:[employer] [address] [address]UFKHEGWYN SNOWDEN MD Mitochondrial Ab Titer [facility] 01/12/2025 2:04 PM EST 01/12/2025 2:04 PM EST [employer] External Data Provider LAB BLOOD ORDERAB LES Final Result Performing Organization Address [facility] de Phone Number [facility] [address] [place] [phone] * Tissue Transglutaminase Antibody, IgA (01/12/2025 2:04 PM EST) Transglutaminase IgA <1.0 U/mL [facility] Comment:Value Interpretation ----- <15.0 Antibody not detected> or = 15.0 Antibody detectedTHIS TEST WAS PERFORMED AT:[employer] [address] [address]DCOIRRENETTA SNOWDEN MD 01/12/2025 2:04 PM EST 01/12/2025 2:04 PM EST Generic External Data Provider LAB BLOOD ORDERAB LES Final Result Performing Organization Address [facility] Co de Phone Number [facility] [address] [place] [phone] * Alpha-Fetoprotein, Tumor Marker (01/12/2025 2:04 PM EST) Pathologist [facility] Alpha Fetoprotein 4.2 ng/mL [facility] Comment:Reference Range: <6. 1The use of AFP as a tumor marker in females is not recommended.This test was performed using the Jaky Coulterchemiluminescent method. Values obtained fromdifferent assay methods cannot be usedinterchangeably. AFP levels, regardless ofvalue, should not be interpreted as absoluteevidence of the presence or absence of disease.THIS TEST WAS PERFORMED AT:[employer] [place] [address]BUICTJESUS SNOWDEN MD 01/12/2025 2:04 PM EST 01/12/2025 2:04 PM EST Generic External Data Provider LAB BLOOD ORDERAB LES Final Result Performing Organization Address [facility] Co de Phone Number [facility] [address] [place] [phone] * Hepatitis B surface antigen, EIA (01/12/2025 2:04 PM EST) [facility] Hepatitis B Surface Ag Negative Negative [facility] 01/12/2025 2:04 PM EST 01/12/2025 2:04 PM EST Generic External Data Provider LAB BLOOD ORDERAB LES Final Result Performing Organization Address [facility] Co de Phone Number [facility] [address] [place] [phone] * HIV-1/2 Antigen and Antibodies, Fourth Generation, with Reflexes (01/12/2025 2:04 PM EST) [facility] HIV AB/AG Nonreactive Nonreactive [facility] Comment:HIV-1 p24 Ag and/or HIV-1/HIV-2 Ab not detected.A test result that is nonreactive does not exclude thepossibility of exposure to or infection with HIV-1 and/orHIV-2. Nonreactive results in this assay for individualswith prior exposure to HIV-1 and/or HIV-2 may be due toantigen and antibody levels that are below the limit ofdetection of this assay.The [employer] HIV Ag/Ab Combo assay result andsupplemental assay results should be interpreted inconjunction with the patient's clinical presentation,history and other laboratory results. If the results areinconsistent with clinical evidence, additional testing issuggested to confirm the result. 01/12/2025 2:04 PM EST 01/12/2025 2:04 PM EST Generic External Data Provider LAB BLOOD ORDERAB LES Final Result Performing Organization Address [facility] Co de Phone Number [facility] [address] [place] [address] [phone] * Hepatitis C Ab (01/12/2025 2:04 PM EST) Hepatitis C Antibody Nonreactive Nonreactive [facility] Comment:Antibodies to HCV no t detected; does not exclude early acuteHCV infection. 01/12/2025 2:04 PM EST 01/12/2025 2:04 PM EST Generic External Data Provider LAB BLOOD ORDERAB LES Final Result Performing Organization Address [facility] Co de Phone Number [facility] [address] [place] [phone] * Hepatitis B Core Antibody, Total (01/12/2025 2:04 PM EST) Hepatitis B Core Antibody Nonreactive Nonreactive [facility] 01/12/2025 2:04 PM EST 01/12/2025 2:04 PM EST Generic External Data Provider LAB BLOOD ORDERAB LES Final Result Performing Organization Address [facility] Co de Phone Number [facility] [address] [place] [phone] * Hepatitis B Surface Antibody, Qualitative (01/12/2025 2:04 PM EST) ~Hepatitis B Surface Antibody NONREACTIVE Nonreactive [facility] Comment:Nonreactive: < 8.00 mIU/mL 01/12/2025 2:04 PM EST 01/12/2025 2:04 PM EST Generic External Data Provider LAB BLOOD ORDERAB LES Final Result Performing Organization Address [facility] Co de Phone Number [facility] [address] [place] [phone] * Hepatitis A Antibody, Total (01/12/2025 2:04 PM EST) Pathologist [facility] Hepatitis A Antibody IgG REACTIVE Nonreactive [facility] Comment:The presence of IgG anti-HAV implies past HAV infection(recent or distant) or vaccination against HAV. 01/12/2025 2:04 PM EST 01/12/2025 2:04 PM EST Generic External Data Provider LAB BLOOD ORDERAB LES Final Result Performing Organization Address [facility] Co de Phone Number [facility] [address] [place] [phone] * (ABNORMAL) Lipid Panel, Standard (01/12/2025 2:04 PM EST) Pathologist [facility] Triglycerides 271(H) <150 mg/dL [facility] Comment:Desirable Triglyceri de: less than 150 mg/dLBorderline High Triglyceride 150-199 mg/dLHigh Triglyceride: 200-499 mg/dLVery High Triglyceride: greater than or equal to 5OO mg/dL Cholesterol 270(H) <200 mg/dL [facility] Comment:Desirable Cholestero l: less than 200 mg/dLBorderline High Cholesterol: 200-239 mg/dLHigh Cholesterol: greater than 239 mg/dL LDL Cholesterol Calculated 173(H) <100 mg/dL [facility] Comment:Desirable LDL: less than 100 mg/dLNear Optimal/Above Optimal LDL: 110- 129 mg/dLBorderline High LDL: 130-159 mg/dLHigh LDL: 160-189 mg/dLVery High LDL: greater than or equal to 190 mg/dL HDL Cholesterol 43 >40 mg/dL [facility] Comment:Desirable HDL: great er than 40 mg/dL Note: This HDL assay may give artificially low results in patients with liver disease. 01/12/2025 2:04 PM EST 01/12/2025 2:04 PM EST us Generic External Data Provider LAB BLOOD ORDERAB LES Final Result Performing Organization Address [facility] Co de Phone Number [facility] [address] [place] [phone] * (ABNORMAL) Gamma Glutamyl Transferase (GGT) (01/12/2025 2:04 PM EST) Gamma Glutamyl Transpeptidase 169(H) 7 - 33 U/L [facility] 01/12/2025 2:04 PM EST 01/12/2025 2:04 PM EST us Generic External Data Provider LAB BLOOD ORDERAB LES Final Result Performing Organization Address City/[facility]/ZIP Co de Phone Number [facility] [address] [place] [phone] * Ferritin (01/12/2025 2:04 PM EST) Ferritin 35 10 - 250 ng/mL [facility] 01/12/2025 2:04 PM EST 01/12/2025 2:04 PM EST us Generic External Data Provider LAB BLOOD ORDERAB LES Final Result Performing Organization Address City/[facility]/ZIP Co de Phone Number [facility] [address] [place] [phone] * Iron And Total Iron Binding Capacity (01/12/2025 2:04 PM EST) Iron 42 30 - 160 mcg/dL [facility] Total Iron Binding Capacity 256 228 - 428 mcg/dL [facility] Percent Iron Saturation 16 15 - 50 % [facility] Unsaturated Iron Binding 214 ug/dL [facility] 01/12/2025 2:04 PM EST 01/12/2025 2:04 PM EST us Generic External Data Provider LAB BLOOD ORDERAB LES Final Result Performing Organization Address [facility] Co de Phone Number [facility] [address] [place] [phone] * (ABNORMAL) Comprehensive Metabolic Panel (01/12/2025 2:04 PM EST) Pathologist [facility] Sodium 140 135 - 145 mmol/L [facility] Potassium 3.4 3.3 - 5.1 mmol/L [facility] Chloride 107 96 - 108 mmol/L [facility] Carbon Dioxide 22 22 - 29 mmol/L [facility] Anion Gap 14 12 - 20 [facility] Urea Nitrogen (BUN) 10 9 - 16 mg/dL [facility] Creatinine, Serum 0.77 0.5 - 1.4 mg/dL [facility] Estimated Glomerular Filt Rate >60 [facility] Comment:Chronic Kidney Disea se: Estimated GFR < 60 mL/min/1.72y1Nmvwzd Kidney Disease: Estimated GFR < 15 mL/min/1.73m2 Glucose 297(H) 60 - 115 mg/dL [facility] Calcium 8.8 8.4 - 10.2 mg/dL [facility] Bilirubin, Total 0.3 0.0 - 1.0 mg/dL [facility] Aspartate Amino Transferase 41(H) 5 - 31 U/L [facility] Alanine Aminotransferase 41(H) 0 - 31 U/L [facility] Total Protein 8.0 6.5 - 8.0 g/dL [facility] Albumin Level 3.9 3.5 - 5.0 g/dL [facility] Alkaline Phosphatase 122(H) 39 - 117 U/L [facility] 01/12/2025 2:04 PM EST 01/12/2025 2:04 PM EST Generic External Data Provider LAB BLOOD ORDERAB LES Final Result Performing Organization Address [facility] Co de Phone Number [facility] [facility] [address] [place] [phone] * (ABNORMAL) Hemoglobin A1c (01/12/2025 2:04 PM EST) Hemoglobin A1c 8.3(H) <6.0 % [facility] Comment:Hemoglobin A1C Refer ence Range Adults: 4.8 - 6.0 % Non diabetic: < 6.0 % Goal: < 7.0 %Additional Action Suggested: > 8.0 %Note: Hemoglobin A1c results are invalid for patients with abnormal amounts of HbF. Blood transfusions may impact the HbA1c concentration in the patient sample. Estimated Average Glucose 192 mg/dL [facility] Comment:eAG = Estimated ave rage glucose which is %A1C expressed asaverage glucose, using the formula of the D7E-EpfuzcwSmkjebs Glucose study (ADAG), Diabetes Care, Vol.31,#8,2007 01/12/2025 2:04 PM EST 01/12/2025 2:04 PM EST Generic External Data Provider LAB BLOOD ORDERAB LES Final Result Performing Organization Address [facility] Co de Phone Number [facility] [address] [place] [phone] * Prothrombin Time-INR (01/12/2025 2:04 PM EST) Prothrombin Time 11.4 10.9 - 12.4 SEC [facility] INTERNATIONAL NORM RATIO 1.0 0.9 - 1.1 [facility] Comment:INTERNATIONAL NORMAL IZED RATIO (INR) REFERENCE [...] ORDERAB LES Final Result Performing Organization Address City/State/[facility] Co de Phone Number [facility] [address] [place] [phone] * (ABNORMAL) CBC (01/12/2025 2:04 PM EST) White Blood Count 9.2 4.8 - 10.8 X10*3/uL [facility] Red Blood Count 4.69 4.20 - 5.50 X10*6/uL [facility] Hemoglobin 12.0 12.0 - 16.0 g/dl [facility] Hematocrit 38.5 37.0 - 47.0 % [facility] Mean Corpuscular Volume 82.1 80.0 - 98.0 fL [facility] Mean Corpuscular Hemoglobin 25.6(L) 27.0 - 33.0 pg [facility] Mean Corpuscular HGB Conc 31.2 31.0 - 35.0 g/dl [facility] Red Cell Distribution Width 13.8 11.0 - 16.0 % [facility] Platelet Count 203 160 - 400 X10*3/uL [facility] Mean Platelet Volume 9.8 9.4 - 12.3 fL [facility] NRBC Pct Auto 0.0 0.0 - 0.2 /100WBC [facility] NRBC Abs Auto 0.000 0.0 - 0.012 X10*3/uL [facility] 01/12/2025 2:04 PM EST 01/12/2025 2:04 PM EST us Generic External Data Provider LAB BLOOD ORDERAB LES Final Result [facility] [address] [place] [phone] documented in this encounter Visit Diagnoses Not on filedocumented in this encounter Additional Health Concerns Assessment Noted Time PHQ-9 Depression Total Score: 6 12/29/19 24 1:36 PM EST documented as of this encounter Care Teams Telepathist Relationship Specialty Start Date End Date Renan Lawson MD [address] [place] [phone] PCP - General Internal Medicine 12/10/21 Richelle Albarado PharmD [address] [place] [phone] Pharmacist Internal Medicine 10/25/24 documented as of this encounter
--- OUTSIDE RECORDS SUMMARY | 2025-02-01 15:26 | XMS_ITS | Patient Health Record ---
Author Organization [facility] Address [address] [place] [address] Care Team Providers Care Director Cardiac Name Role Phone Deandre Aparicio MD, Renan Primary Care Provide r Unavailable Eric Emmanuel Unavailable [phone] Reason For Referral No Information Plan Of Treatment No Information Insurance Providers Payer Name Payer Address Payer Phone Subscriber Number Group Number Insured Name Patient Relationship to Insured Coverage Start Date Coverage End Date MEDICARE OF [place] [address] [place] [phone] [id number] [employer] Self - patient is the insured MEDICAID OF [facility] [address] [place] [address] [id number] [employer] Self - patient is the insured
--- OUTSIDE RECORDS SUMMARY | 2025-02-01 15:27 | XMS_ITS | Encounter Summary ---
Author Organization [employer] [facility] Address [address] [place] [address] Care Team Providers Care Ballet Teacher Name Role Phone Renan Lawson MD Primary Care Provide r Edilberto Barahona PharmD Unavailable [phone] Richelle Albarado PharmD Unavailable [phone] Reason for Visit * Reason Comments Med Refill Encounter Details Date Type Department Care Team ([facility] st Contact Info) Description 08/26/2024 Refill [facility] [address] [place], [place] [phone] Renan Lawson MD [address] [place], [place] [phone] Social History Tobacco Use Types Packs/Day Years [...] Description 03/23/2025 1:15 PM EDT Office Visit [facility] [address] [place] [phone] Renan Lawson MD [address] [place] [phone] documented as of this encounter Goals Goal [...] 8.3( 5 2:04 PM EST) No Edilberto Barahona, PharmD documented as of this encounter Visit Diagnoses Not on filedocumented in this encounter Additional Health Concerns Assessment Noted Time PHQ-9 Depression Total Score: 6 12/29/19 24 1:36 PM EST documented as of this encounter Care Teams Ballet Teacher Relationship Specialty Start Date End Date Renan Lawson MD [address] [place] [phone] PCP - General Internal Medicine 12/10/21 Edilberto Barahona, PharmD [address] [place] [phone] Pharmacist Internal Medicine 07/14/23 10/24/24 Richelle Albarado, KyD [address] [place] [phone] Pharmacist Internal Medicine 10/25/24 documented as of this encounter
--- OUTSIDE RECORDS SUMMARY | 2025-02-01 15:27 | XMS_ITS | Clinical Summary ---
Author Organization [employer] Address [address] [facility] [address] [place] [address] Care Team Providers Care Hanger Off Name Role Phone Renan Lawson MD Primary Care Provide r Richelle Albarado PharmD Unavailable [phone] Allergies Active Allergy Reactions Criticality Noted Date [...] by oral route daily at bedtime Active Praluent 75 MG/ML injection PLEASE SEE ATTACHED FOR DETAILED DIRECTIONS Active Breztri Aerosphere 160-9-4.8 MCG/ACT aerosol Active clonazePAM (KlonoPIN) 1 MG tablet Active omeprazole (PriLOSEC) [address] capsuleIndicatio ns:Davis's esophagus without dysplasia TAKE 1 CAPSULE BY MOUTH TWICE DAILY IN THE MORNING AND AT BEDTIME 60 capsule 4 Active venlafaxine XR (Effexor XR) 37.5 MG 24 hr capsule TOME EVELIO C PSULA TODOS LOS D EN LA ALONA GALEANO Active metoclopramide (Reglan) 5 MG tablet Take 5 mg by mouth 3 times daily. Active Blood Glucose Monitoring Suppl (FreeStyle [place] Lite) w/Device kit USE DIRECTED TO TEST BLOOD SUGAR FOUR TIMES DAILY 1 kit Active Simethicone Ultra Strength 180 MG capsule TAKE 1 CAPSULE BY MOUTH THREE TIMES DAILY IN THE MORNING, AT NOON, AND AT BEDTIME NEEDED FOR GAS 90 capsule 1 Active TRUEplus Lancets 33G miscIndications: Diabetes mellitus [...] 0.5 % ophthalmic solution Use as directed 024 Active Senna-Time 8.6 MG tablet Take 2 tablets by mouth at bedtime. Active Alcohol Swabs (CVS Prep) 70 % pads Apply 1 Swab topically if needed each day (for injection or CGM placement). 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 Use daily as directed for CGM 1 each 024 Active amLODIPine (Norvasc) 10 MG tabletIndication s:Primary hypertension TAKE 1 TABLET BY MOUTH EVERY DAY IN THE MORNING 90 tablet 025 Active atorvastatin (Lipitor) 80 MG tabletIndication s:Mixed hyperlipidemia TAKE 1 TABLET BY MOUTH EVERY DAY AT BEDTIME 90 tablet 1 025 Active cetirizine (ZyrTEC) 10 MG tabletIndication s:Seasonal allergies TAKE 1 TABLET BY MOUTH EVERY DAY AT BEDTIME 90 tablet 1 025 Active ezetimibe (Zetia) 10 MG tabletIndication s:Mixed hyperlipidemia TAKE 1 TABLET BY MOUTH EVERY MORNING 90 tablet 1 025 Active metoprolol succinate XL (Toprol-XL) 50 [...] ONCE DAILY 48 g 1 025 Active cyclobenzaprine (Flexeril) 5 MG tablet TOME 1 TABLETA POR V A ORAL TODOS LOS D AL ACOSTARSE CUANDO SEA NECESARIO FOR 30 DAYS 025 Active naproxen (Naprosyn) 500 MG tablet 025 Active BD Pen Needle Arti U/F 32G X 4 MM miscIndications: 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 2 mL 025 Active lisinopril 20 MG tabletIndication s:Primary hypertension Take 1 tablet (20 mg) by mouth Once per day. 30 tablet 025 Active Blood Pressure Monitoring (Blood Pressure Kit) kit Use to check blood pressure daily 1 kit 025 Active Continuous Glucose Sensor (FreeStyle Richard 3 Plus Sensor) misc 1 each every 15 days. 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 Apply 1 sensor as directed every 14 days for CGM. 2 each 024 2024 Discontinued(A lternate therapy) lisinopril 10 MG tabletIndication s:Primary hypertension TAKE 1 TABLET BY MOUTH EVERY DAY 30 tablet 2 025 2024 Discontinued(R eorder (will not trigger notification to Pharmacy)) pregabalin (Lyrica) 200 MG capsuleIndicatio ns:Fibromyalgia TAKE 1 CAPSULE BY MOUTH TWICE DAILY IN THE MORNING AND IN THE EVENING 60 capsule 025 2024 Discontinued Continuous Glucose Sensor (FreeStyle Richard 3 Plus Sensor) misc 1 each every 15 days. Apply 1 every 15 days as directed for CGM 2 each 025 2024 Discontinued Active Problems Problem Noted [...] at home monitoring and current therapy - [facility] to check on status of Freestyle [...] was seen by an orthopaedist at [facility]. Preventative health care 12/02/2022 Overview (09/07/2023): Continues [...] for a HDF, She was admitted to [facility] from 11/10--05/2023 She presented with syncope with [...] acute finding. Pt was seen by her Director Market Research Dr Freeman and is currently wearing an [...] atorvastatin, Zetia and Praluent. Last seen by Director Market Research Dr Freeman 07/2024 Assessment & Plan (09/15/2023 [...] Patient under the care of [facility], last seen 07/29/2024 Currently on Ventolin , uses albuterol nebulizarions as well. Dr Carson stopped her other inhalers Assessment & Plan (09/15/2023 3:23 PM EST): Patient under the care of [facility], last seen April Currently on Ventolin and Breztri Aerosphere , uses albuterol nebulizarions as well Assessment & Plan (12/02/2022 8:52 AM EST): Patient under the care of [facility], last seen January 2022 Currently on Ventolin [...] PM EST): Pt under the care of Machine Baster at [facility] , last seen 10/2023 Currently on a regimen of Dexilant 60 mg po daily and Omeprazole 40 mg po daily Assessment & Plan (12/02/2022 8:52 AM EST): Pt under the care of Machine Baster at [facility] Currently on a regimen of Dexilant 60 [...] (05/04/2023 3:40 PM EDT): - Freestyle Richard [place] and Sensor Ordered - A1c is not [...] found on MRI of lower back at [facility] in 2008, unchanged 2009. Sl enlarged 2013. Ref uro Davis's esophagus 01/03/2013 Overview (12/02/2022): Last EGD - Dr. Parviz Sommers, [facility] 01.06.2020 Assessment & Plan (09/29/2024 2:39 PM [...] daily History: - followed by Nixon's office [facility] Cardiology Assessment & Plan (09/29/2024 12:59 PM [...] is being followed by Dr. Jarod Angelo ([address] [facility] ). She is now under the care of the Pain Clinic at [facility] Re cent x-ray ordered by them 12/22/2023 [...] is being followed by Dr. Jarod Angelo ([address] ). She is now under the care of the Pain Clinic at [facility] Re cent x-ray ordered by them 12/22/2023 [...] request records from most recent MRI at [facility] pt is being followed by Dr. Jarod Angelo ([address] [facility] ). Depressive disorder 11/09/1959 Assessment & Plan (12/23/2022 2:42 PM EST): Patient under the care of psychiatrist at [facility] Currently on a regimen of: Clonazepam 0.5 mg po BID PRN, Trazodone 100 mg po qhs and Mirtazapine 45 mg po at bedtime Pt reports she has agoraphobia and cannot attend Jury Duty She is requesting a letter that due to the fact that she does not speak pashto and has a psychiatric condition that causes her extreme anxiety when she is surrounded by people, she cannot attend Jury duty Assessment & Plan (12/02/2022 8:44 AM EST): Patient under the care of psychiatrist at [facility] Currently on a regimen of: Clonazepam 0.5 [...] Encounters Date Type Department Care Team Description 01/30/2025 Telephone [facility] [address], [place] [phone] Britni Brink RN Paperwork/Forms 01/25/2025 Refill [facility] [address], [place] [phone] Renan Lawson MD Fibromyalgia 01/23/2025 Travel 01/23/2025 Refill [facility] [address], [place] [phone] Renan Lawson MD 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) 01/18/2025 Telephone [facility] [address], [place] [phone] Renan Lawson MD Chart Prep 01/18/2025 Patient Outreach [facility] [address] [place] [phone] Renan Lawson MD Care Coordination (CH[facility] outreach for SDOH food needs-referral completed /) 01/18/2025 Patient Outreach [facility] [address] [place] [address] Renan Lawson MD Pre-visit Planning (SDOH Screening positive and Tobacco screening negative) 01/12/2025 Orders Only GENERIC EXTERNAL DATA DEPARTMENT Provider, Generic External Data 12/29/2024 Refill [facility] [address], [place] [phone] Renan Lawson MD Fibromyalgia 12/28/2024 Refill [facility] [address] [place] [address] Renan Lawson MD 12/27/2024 Refill [facility] [address] [place] [address] Renan Lawson MD Primary hypertension; Diabetes mellitus type 2 with neurological manifestations ([facility]/HCC); Type 2 diabetes mellitus without complication, without long-term current use of insulin ([facility]/HCC) 12/01/2024 Refill [facility] [address] [place] [address] Ashtyn Dill, LAURYN Primary hypertension 11/29/2024 Refill [facility] [address] [place] [address] Edilberto Barahona, PharmD Diabetes mellitus type 2 with neurological manifestations ([facility]/HCC) 11/29/2024 Travel 11/29/2024 Refill [facility] [address], [place] [phone] Renan Lawson MD Mixed hyperlipidemia; Fibromyalgia 11/21/2024 Refill [facility] [address], [place] [phone] Renan Lawson MD Primary hypertension; Mixed hyperlipidemia; Seasonal allergies from Last 3 Months Immunizations Name Administration [...] 1:15 PM EDT Office Visit [facility] [address] [place] [address] Renan Lawson MD [address] [place] [address] Health Maintenance Due Date Last Done Comments [...] 2:04 PM EST) No Edilberto Barahona [facility] Procedures Procedure Name Priority Date/Time Associated Diagnosis Comments MR ABDOMEN W AND WO CONTRAST Routine 01/22/2025 3:49 PM EDT DRUG MONITORING, PHOSPHATIDYLETHANOL (PETH), BLOOD Routine 01/12/2025 2:04 PM EST WALESKA SCREEN, IFA, W/REFL TITER AND PATTERN Routine 01/12/2025 2:04 PM EST LIVER KIDNEY MICROSOME (LKM-1) AB (IGG) Routine 01/12/2025 2:04 PM EST ACTIN (SMOOTH MUSCLE) ANTIBODY (IGG) Routine 01/12/2025 2:04 PM EST IMMUNOGLOBULIN A Routine 01/12/2025 2:04 PM EST IMMUNOGLOBULIN G Routine 01/12/2025 2:04 PM EST [id number]-[id number] QN Routine 2:04 PM EST CERULOPLASMIN Routine [...] AB TOTAL Routine 2024 2:04 PM EST HEPATITIS B SURFACE ANTIBODY, [...] Recently Relevant to Health Maintenance Results * MR Abdomen w/ and w/o Contrast (01/22/2025 3:49 PM EDT) Anatomical Region Laterality Modality Abdomen Magnetic Resonan ce 01/22/2025 3:49 PM EDT Narrative 01/23/2025 7:09 AM EDT ? [facility] ?[address] ?[place] [address] ? Magnetic Resonance Report ? Signed ? Patient: Naa Pedersen ?MR#: [id number] ?? [id number] ? : 1955 ?Acct:[id number] ? Age/Sex: 69 / F ?ADM Date: 01/22/25 ? Loc: HO.MRI ? Attending Dr: Jennifer Conn MD ? Ordering Physician: Jennifer Conn MD ?? Date of Service: 01/22/25 ?? Procedure(s): MR abdomen wo/w con ?? Accession Number(s): [id number] ? cc: Renan Cabral MD; Jennifer Conn [...] AM EDT ?? RP ? Dictated By: ?Faberman,Eric MD ? Signed By: ?<Electronically signed by Eric Cooper MD in OV> ?01/23/25 0706 ? DD/ 1549 ? TD/TT: 01/22/25 1612 ? Nuclear Officer: ? Procedure Note [place] - 01/23/[address] [address] Magnetic Resonance Report Signed Patient: Naa Pedersen EMR#: [id number] : 6Acct:[id number] Age/Sex: 69 / FADM Date: 01/22/25 Loc: HO.MRI Attending Dr: Jennifer Conn MD Ordering Physician: Jennifer Conn MD Date of Service: 01/22/25 Procedure(s): MR abdomen wo/w con Accession Number(s): [id number] cc: Renan Cabral MD; Jennifer Conn MD [...] 01/23/25 0706 DD/ 1549 TD/TT: 01/22/25 1612 Nuclear Officer: us [facility] External Provider IMG MRI PROCEDURES Final Result * Hepatitis C Ab (01/12/2025 2:04 PM EST) [facility] Hepatitis C Antibody Nonreactive Nonreactive [facility] Comment:Antibodies to HCV no t detected; does not exclude early acuteHCV infection. 01/12/2025 2:04 PM EST 01/12/2025 2:04 PM EST Generic External Data Provider LAB BLOOD ORDERAB LES Final Result Performing Organization Address City/[facility]/ZIP Co de Phone Number [facility] [address] [place] [phone] * HCV RNA BY PCR, QN RFX MADDISON (01/12/2025 2:04 PM EST) [facility] HCV RNA PCR QN <15 NOT DETECTED NOT DETECTED IU/mL [facility] HCV RNA PCR QN <1.18 NOT DETECTED NOT DETECTED Log IU/mL [facility] HCV RNA COMMENT SEE NOTE [facility] Comment:For additional infor mation, please refer tohttp://education.Geddit/faq/FEC66y5(This link is being provided for informational/Educational purposes only.)THIS TEST WAS PERFORMED AT:[facility] [place] [phone] SNOWDEN MD HCV RNA GENOTYPE,LIPA TNP [facility] Comment:Test not indicated. 01/12/2025 2:04 PM EST 01/12/2025 2:04 PM EST Generic External Data Provider LAB BLOOD ORDERAB LES Final Result Performing Organization Address [facility]/ZIP Co de Phone Number [facility] [address] [place] [phone] * Drug Monitoring, Phosphatidylethanol (PEth), Blood (01/12/2025 2:04 PM EST) Phosphatidylethanol, Blood NEGATIVE [facility] Comment:REFERENCE RANGE: <20 ng/mLTHIS TEST PERFORMED AT:[place] [id number] [place], [place] [phone] DIRECTOR: HUSSEIN COREAS MD, PHD [facility] 16:0/18:2 (PLPEth) NEGATIVE [facility] Comment:REFERENCE RANGE: <20 ng/mLTHIS TEST PERFORMED AT:[place] [place], [place] [phone] DIRECTOR: HUSSEIN COREAS MD, PHD [facility] Comments SEE NOTE [facility] Comment:This drug testing is for medical treatment only. Analysiswas performed as non-forensic testing and these resultsshould be used only by healthcare providers to renderdiagnosis or treatment, or to monitor progress of medicalconditions.LDT Notes:Confirmation tests were developed and their analyticalperformance characteristics have been determined by [employer]. It has not been cleared or approved by the FDA.This assay has been validated pursuant to the CLIAregulations and is used for clinical purposes.Healthcare Providers needing Interpretation assistance,please contact us at [phone] ( ) M-F,8am to 10pm ESTTHIS TEST PERFORMED AT:[facility] [place] [phone] DIRECTOR: JESUS SNOWDEN MD 01/12/2025 2:04 PM EST 01/12/2025 2:04 PM EST us Generic External Data Provider LAB BLOOD ORDERAB LES Final Result [facility] [address] [place] [phone] * Iron And Total Iron Binding Capacity (01/12/2025 2:04 PM EST) Iron 42 30 - 160 mcg/dL [facility] Total Iron Binding Capacity 256 228 - 428 mcg/dL [facility] Percent Iron Saturation 16 15 - 50 % [facility] Unsaturated Iron Binding 214 ug/dL [facility] 01/12/2025 2:04 PM EST 01/12/2025 2:04 PM EST Generic External Data Provider LAB BLOOD ORDERAB LES Final Result Performing Organization Address City/[facility]/ZIP Co de Phone Number [facility] [address] [place] [phone] * Actin (Smooth Muscle) Antibody (IgG) (01/12/2025 2:04 PM EST) Pathologist [facility] Smooth Muscle Antibody <20 <20 U [facility] Comment:Reference Range: <20 U: Negative>or=20 [...] with AIH type 1.THIS TEST WAS PERFORMED AT:[place]/[facility] [place] [address]VNIVPWO W. MASON,MD,PHD 01/12/2025 2:04 PM EST 01/12/2025 2:04 PM EST us Generic External Data Provider LAB BLOOD ORDERAB LES Final Result Performing Organization Address City/[facility]/ZIP Co de Phone Number [facility] [address] [place] [phone] * Amyhb-6-Unhqnasmkrd, Quantitative (01/12/2025 2:04 PM EST) Pathologist [facility] Yhhdy-5-Vgklxjeh sin QN 172 83 - 199 mg/dL [facility] Comment:THIS TEST WAS PERFOR MED AT:[facility] [address] [phone] SNOWDEN MD 01/12/2025 2:04 PM EST 01/12/2025 2:04 PM EST Generic External Data Provider LAB BLOOD ORDERAB LES Final Result Performing Organization Address [facility] Co de Phone Number [facility] [address] [place] [phone] * Hepatitis A Antibody, Total (01/12/2025 2:04 PM EST) Hepatitis A Antibody IgG REACTIVE Nonreactive [facility] Comment:The presence of IgG anti-HAV implies past HAV infection(recent or distant) or vaccination against HAV. 01/12/2025 2:04 PM EST 01/12/2025 2:04 PM EST Generic External Data Provider LAB BLOOD ORDERAB LES Final Result Performing Organization Address [facility] Phone Number [facility] [address] [place] [phone] * Tissue Transglutaminase Antibody, IgA (01/12/2025 2:04 PM EST) Transglutaminase IgA <1.0 U/mL [facility] Comment:Value Interpretation ----- <15.0 Antibody not detected> or = 15.0 Antibody detectedTHIS TEST WAS PERFORMED AT:[facility] [address] [phone] SNOWDEN MD 01/12/2025 2:04 PM EST 01/12/2025 2:04 PM EST Generic External Data Provider LAB BLOOD ORDERAB LES Final Result Performing Organization Address [facility] Phone Number [facility] [address] [place] [phone] * Ceruloplasmin (01/12/2025 2:04 PM EST) Pathologist [facility] Ceruloplasmin 33 14 - 48 mg/dL [facility] Comment:THIS TEST WAS PERFOR MED AT:[facility] [place] [address] [phone] SNOWDEN MD 01/12/2025 2:04 PM EST 01/12/2025 2:04 PM EST Generic External Data Provider LAB BLOOD ORDERAB LES Final Result [facility] [address] [place] [phone] * Alpha-Fetoprotein, Tumor Marker (01/12/2025 2:04 PM EST) Pathologist [facility] Alpha Fetoprotein 4.2 ng/mL [facility] Comment:Reference Range: <6. 1The use of AFP as a tumor marker in females is not recommended.This test was performed using the Jaky Coulterchemiluminescent method. Values obtained fromdifferent assay methods cannot be usedinterchangeably. AFP levels, regardless ofvalue, should not be interpreted as absoluteevidence of the presence or absence of disease.THIS TEST WAS PERFORMED AT:[facility] [address] [phone] SNOWDEN MD 01/12/2025 2:04 PM EST 01/12/2025 2:04 PM EST us Generic External Data Provider LAB BLOOD ORDERAB LES Final Result [facility] [address] [place] [phone] * Hepatitis B surface antigen, EIA (01/12/2025 2:04 PM EST) Pathologist [facility] Hepatitis B Surface Ag Negative Negative [facility] 01/12/2025 2:04 PM EST 01/12/2025 2:04 PM EST us Generic External Data Provider LAB BLOOD ORDERAB LES Final Result Performing Organization Address City/[facility]/ZIP Co de Phone Number [facility] [address] [place] [phone] * Hepatitis B Core Antibody, Total (01/12/2025 2:04 PM EST) Hepatitis B Core Antibody Nonreactive Nonreactive [facility] 01/12/2025 2:04 PM EST 01/12/2025 2:04 PM EST Generic External Data Provider LAB BLOOD ORDERAB LES Final Result Performing Organization Address [facility] Co de Phone Number [facility] [address] [place] [phone] * Liver Kidney Microsomal (LKM-1) Antibody??(IgG) (01/12/2025 2:04 PM EST) Liver Kidney Microsomal (LKM-1) Antibody IgG <=20.0 <=20.0 U [facility] Comment:Reference Range: <=2 0.0 Negative [...] patients with hepatitis Cinfection.THIS TEST WAS PERFORMED AT:[place]/[id number] [place] [address]DNXWKXZHUSSEIN COREAS MD,PHD 01/12/2025 2:04 PM EST 01/12/2025 2:04 PM EST us Generic External Data Provider LAB BLOOD ORDERAB LES Final Result Performing Organization Address City/[facility]/ZIP Co de Phone Number [facility] [address] [place] [phone] * Mitochondrial Antibody with Reflex to Titer (01/12/2025 2:04 PM EST) Mitochondrial Antibodies NEGATIVE NEGATIVE [facility] Comment:THIS TEST WAS PERFOR MED AT:[facility] [place] [phone] SNOWDEN MD Mitochondrial Ab Titer TNP [facility] 01/12/2025 2:04 PM EST 01/12/2025 2:04 PM EST Generic External Data Provider LAB BLOOD ORDERAB LES Final Result Performing Organization Address [facility] Co de Phone Number [facility] [address] [place] [phone] * HIV-1/2 Antigen and Antibodies, Fourth Generation, with Reflexes (01/12/2025 2:04 PM EST) HIV AB/AG Nonreactive Nonreactive [facility] Comment:HIV-1 p24 Ag and/or HIV-1/HIV-2 Ab not detected.A test result that is nonreactive does not exclude thepossibility of exposure to or infection with HIV-1 and/orHIV-2. Nonreactive results in this assay for individualswith prior exposure to HIV-1 and/or HIV-2 may be due toantigen and antibody levels that are below the limit ofdetection of this assay.The You.Do HIV Ag/Ab Combo assay result andsupplemental assay results should be interpreted inconjunction with the patient's clinical presentation,history and other laboratory results. If the results areinconsistent with clinical evidence, additional testing issuggested to confirm the result. 01/12/2025 2:04 PM EST 01/12/2025 2:04 PM EST Generic External Data Provider LAB BLOOD ORDERAB LES Final Result Performing Organization Address [facility] Co de Phone Number [facility] [address] [place] [phone] * Hepatitis B Surface Antibody, Qualitative (01/12/2025 2:04 PM EST) ~Hepatitis B Surface Antibody NONREACTIVE Nonreactive [facility] Comment:Nonreactive: < 8.00 mIU/mL 01/12/2025 2:04 PM EST 01/12/2025 2:04 PM EST Generic External Data Provider LAB BLOOD ORDERAB LES Final Result Performing Organization Address [facility] Phone Number [facility] [address] [place] [phone] * Prothrombin Time-INR (01/12/2025 2:04 PM EST) Prothrombin Time 11.4 10.9 - 12.4 SEC [facility] INTERNATIONAL NORM RATIO 1.0 0.9 - 1.1 [facility] Comment:INTERNATIONAL NORMAL IZED RATIO (INR) [...] ORDERAB LES Final Result Performing Organization Address [facility] Co de Phone Number [facility] [address] [place] [address] [phone] * (ABNORMAL) CBC (01/12/2025 2:04 PM EST) White Blood Count 9.2 4.8 - 10.8 X10*3/uL [facility] Red Blood Count 4.69 4.20 - 5.50 X10*6/uL [facility] Hemoglobin 12.0 12.0 - 16.0 g/dl [facility] Hematocrit 38.5 37.0 - 47.0 % [facility] Mean Corpuscular Volume 82.1 80.0 - 98.0 fL [facility] Mean Corpuscular Hemoglobin 25.6(L) 27.0 - 33.0 pg [facility] Mean Corpuscular HGB Conc 31.2 31.0 - 35.0 g/dl [facility] Red Cell Distribution Width 13.8 11.0 - 16.0 % [facility] Platelet Count 203 160 - 400 X10*3/uL [facility] Mean Platelet Volume 9.8 9.4 - 12.3 fL [facility] NRBC Pct Auto 0.0 0.0 - 0.2 /100WBC [facility] NRBC Abs Auto 0.000 0.0 - 0.012 X10*3/uL [facility] 01/12/2025 2:04 PM EST 01/12/2025 2:04 PM EST us Generic External Data Provider LAB BLOOD ORDERAB LES Final Result [facility] [address] [place] [phone] * [place] Screen,IFA, with Reflex to Titer and Pattern (01/12/2025 2:04 PM EST) Pathologist [facility] Anti Nuclear Antibody Screen NEGATIVE NEGATIVE [facility] Comment:[place] IFA is a first [...] clinicallysuspected inflammatory myopathies.AC-0: NegativeInternational Consensus on [place] Patterns(https://doi.org/10.1515/xxpg-3291-5780)For additional information, please refer tohttp://education.Vaunte/faq/VXF635(This link is being provided for informational/educational purposes only.)THIS TEST WAS PERFORMED AT:[employer] [place] [phone] SNOWDEN MD [place] Titer TNP [facility] [place] Pattern TNP [facility] [place] TITER 2 (REF LAB) [facility] [place] Pattern 2 [facility] [place] TITER 3 [facility] [place] PATTERN 3 [facility] 01/12/2025 2:04 PM EST 01/12/2025 2:04 PM EST us Generic External Data Provider LAB BLOOD ORDERAB LES Final Result [facility] [address] [place] [phone] * (ABNORMAL) Hemoglobin A1c (01/12/2025 2:04 PM EST) Hemoglobin A1c 8.3(H) <6.0 % [facility] Comment:Hemoglobin A1C Refer ence Range Adults: 4.8 - 6.0 % Non diabetic: < 6.0 % Goal: < 7.0 %Additional Action Suggested: > 8.0 %Note: Hemoglobin A1c results are invalid for patients with abnormal amounts of HbF. Blood transfusions may impact the HbA1c concentration in the patient sample. Estimated Average Glucose 192 mg/dL [facility] Comment:eAG = Estimated ave rage glucose which is %A1C expressed asaverage glucose, using the formula of the B5T-XwsdfbpQkbyffj Glucose study (ADAG), Diabetes Care, Vol.31,#8,2007 01/12/2025 2:04 PM EST 01/12/2025 2:04 PM EST Generic External Data Provider LAB BLOOD ORDERAB LES Final Result Performing Organization Address [facility] Phone Number [facility] [address] [place] [phone] * (ABNORMAL) Gamma Glutamyl Transferase (GGT) (01/12/2025 2:04 PM EST) Gamma Glutamyl Transpeptidase 169(H) 7 - 33 U/L [facility] 01/12/2025 2:04 PM EST 01/12/2025 2:04 PM EST Generic External Data Provider LAB BLOOD ORDERAB LES Final Result Performing Organization Address [facility] Number [facility] [address] [place] [address] [phone] * (ABNORMAL) Immunoglobulin A (01/12/2025 2:04 PM EST) Immunoglobulin A 383(A) 70 - 320 mg/dL [facility] Comment:THIS TEST WAS PERFOR MED AT:[employer] [place] [phone] SNOWDEN MD 01/12/2025 2:04 PM EST 01/12/2025 2:04 PM EST Generic External Data Provider LAB BLOOD ORDERAB LES Final Result Performing Organization Address [facility] de Phone Number [facility] [address] [place] [address] [phone] * Immunoglobulin G (01/12/2025 2:04 PM EST) Immunoglobulin G 1439 600 - 1540 mg/dL [facility] Comment:THIS TEST WAS PERFOR MED AT:[employer] [place] [phone] SNOWDEN MD 01/12/2025 2:04 PM EST 01/12/2025 2:04 PM EST Generic External Data Provider LAB BLOOD ORDERAB LES Final Result Performing Organization Address [facility] Co de Phone Number [facility] [address] [place] [phone] [phone] * Ferritin (01/12/2025 2:04 PM EST) Ferritin 35 10 - 250 ng/mL [facility] 01/12/2025 2:04 PM EST 01/12/2025 2:04 PM EST Generic External Data Provider LAB BLOOD ORDERAB LES Final Result Performing Organization Address [facility] Phone Number [facility] [address] [place] [phone] * (ABNORMAL) Lipid Panel, Standard (01/12/2025 2:04 PM EST) Triglycerides 271(H) <150 mg/dL [facility] Comment:Desirable Triglyceri de: less than 150 mg/dLBorderline High Triglyceride 150-199 mg/dLHigh Triglyceride: 200-499 mg/dLVery High Triglyceride: greater than or equal to 5OO mg/dL Cholesterol 270(H) <200 mg/dL [facility] Comment:Desirable Cholestero l: less than 200 mg/dLBorderline High Cholesterol: 200-239 mg/dLHigh Cholesterol: greater than 239 mg/dL LDL Cholesterol Calculated 173(H) <100 mg/dL [facility] Comment:Desirable LDL: less than 100 mg/dLNear Optimal/Above Optimal LDL: 110- 129 mg/dLBorderline High LDL: 130-159 mg/dLHigh LDL: 160-189 mg/dLVery High LDL: greater than or equal to 190 mg/dL HDL Cholesterol 43 >40 mg/dL [facility] Comment:Desirable HDL: great er than 40 mg/dL Note: This HDL assay may give artificially low results in patients with liver disease. 01/12/2025 2:04 PM EST 01/12/2025 2:04 PM EST us Generic External Data Provider LAB BLOOD ORDERAB LES Final Result [facility] [address] [place] [phone] [phone] * (ABNORMAL) Comprehensive Metabolic Panel (01/12/2025 2:04 PM EST) Sodium 140 135 - 145 mmol/L [facility] Potassium 3.4 3.3 - 5.1 mmol/L [facility] Chloride 107 96 - 108 mmol/L [facility] Carbon Dioxide 22 22 - 29 mmol/L [facility] Anion Gap 14 12 - 20 [facility] Urea Nitrogen (BUN) 10 9 - 16 mg/dL [facility] Creatinine, Serum 0.77 0.5 - 1.4 mg/dL [facility] Estimated Glomerular Filt Rate >60 [facility] Comment:Chronic Kidney Disea se: Estimated GFR < 60 mL/min/1.45s0Rwxogv Kidney Disease: Estimated GFR < 15 mL/min/1.73m2 Glucose 297(H) 60 - 115 mg/dL [facility] Calcium 8.8 8.4 - 10.2 mg/dL [facility] Bilirubin, Total 0.3 0.0 - 1.0 mg/dL [facility] Aspartate Amino Transferase 41(H) 5 - 31 U/L [facility] Alanine Aminotransferase 41(H) 0 - 31 U/L [facility] Total Protein 8.0 6.5 - 8.0 g/dL [facility] Albumin Level 3.9 3.5 - 5.0 g/dL [facility] Alkaline Phosphatase 122(H) 39 - 117 U/L [facility] 01/12/2025 2:04 PM EST 01/12/2025 2:04 PM EST us Generic External Data Provider LAB BLOOD ORDERAB LES Final Result [facility] [address] [place] [phone] * CT Chest w/o Contrast (11/14/2024 10:23 AM EST) Anatomical Region Laterality Modality Body, Chest Computed Tomogra phy 11/14/2024 10:2 3 AM EST Narrative 11/14/2024 10:25 AM EST ? [facility] ?[address] ?[place] [address] ? CT Scan Report ? Signed ? Patient: Naa Pedersen ?MR#: [id number] ?? [id number] ? : 1955 ?Acct:[id number] ? Age/Sex: 68 / F ?ADM Date: 11/11/24 ? Loc: HO.CT ? Attending Dr: Renan Cabral MD ? Ordering Physician: Renan Cabral MD ?? Date of Service: 11/11/24 ?? Procedure(s): CT chest wo IV con ?? Accession Number(s): [id number] ? cc: Renan Cabral MD ? Report Number: ?? [id number]: Total DLP = ??198.00 mGy-cm ? CLINICAL [...] DD/ 1023 ? TD/TT: 11/14/24 1023 ? Nuclear Officer: ? Procedure Note [place] - 11/14/[address] [address] [address] Scan Report Signed Patient: Naa Pedersen EMR#: [id number] : 6Acct:[id number] Age/Sex: 68 / FADM Date: 11/11/24 Loc: HO.CT Attending Dr: Renan Cabral MD Ordering Physician: Renan Cabral MD Date of Service: 11/11/24 Procedure(s): CT chest wo IV con Accession Number(s): [id number] cc: Renan Cabral MD Report Number: [id number]: Total DLP = 198.00 mGy-cm CLINICAL HISTORY: [...] 11/14/24 1025 DD/ 1023 TD/TT: 11/14/24 1023 Nuclear Officer: us Renan Aparicio MD IMEnio CT PROCEDURES Robert genia Result - Final * BI Mammogram Screening Tomosynthesis Bilateral (02/19/2024 2:10 PM EDT) Anatomical Region Laterality Modality Breast Bilateral Mammography 02/19/2024 2:10 PM EDT Narrative 03/17/2024 10:25 PM EDT ? [facility] ? [address] ?[place] [address] ? Mammography Report ? Signed ? Patient: Pedersen,Christianne ?MR#: [id number] ?? [id number] ? : 1955 ?Acct:[id number] ? Age/Sex: 68 / F ?ADM Date: 02/19/24 ? Loc: HO.MAMMO ? Attending Dr: Renan Cabral MD ? Ordering Physician: Renan Cabral MD ?Resu ?? lts: 2Benign Findings ? Date of Service: 02/19/24 ?Follow Up: 1 Year From Orig ?? inal Mammogram ? Procedure(s): MM tomosynthesis screening BI ?? Accession Number(s): [id number] ? cc: Renan Cabral MD ? EXAMINATION: [...] by Greta Dotson MD in OV> ? 03/17/24 2221 ? DD/ 1410 ? TD/TT: ? Nuclear Officer: ? Procedure Note [place] - 03/17/2024 [facility] [address] [place] [address] [place] [address] Mammography Report Signed Patient: Naa Pedersen EMR#: [id number] : 6Acct:[id number] Age/Sex: 68 / FADM Date: 02/19/24 Loc: DIPTI Attending Dr: Renan Cabral MD Ordering Physician: Renan Cabral MDResu lts: 2Benign Findings Date of Service: 02/19/24Follow Up: 1 Year From Orig inal Mammogram Procedure(s): MM tomosynthesis screening BI Accession Number(s): [id number] cc: Renan Cabral MD EXAMINATION: MM SCREENING [...] in OV> 03/17/24 2221 DD/ 1410 TD/TT: Nuclear Officer: us Renan Aparicio MD IMG BI PROCEDURES Robert genia Result - Final * ALBUMIN, RANDOM URINE W/CREATININE (12/19/2021 8:51 AM EST) Microalbumin Urine 3.1 See Note: mg/dL [facility] Comment: Reference Range: ?? Reference [...] Creatinine, Urine 108 20 - 275 mg/dL [facility] 12/19/2021 8:51 AM EST us Renan Aparicio MD LAB URINE ORDERABLES Final Result [facility] [address] from Last 3 Months or Most Recently Relevant to Health Maintenance Insurance [place] [address] [place] [address] [place] [id number] [facility] Care Teams Hanger Off Relationship Specialty Start Date End Date Renan Lawson MD [address] [place] [address] PCP - General Internal Medicine 12/10/21 Richelle Albarado, Toni [address] [place] [address] Pharmacist Internal Medicine 10/25/24
--- OUTSIDE RECORDS SUMMARY | 2025-02-01 15:27 | XMS_ITS | Encounter Summary ---
Author Organization [facility] [facility] Address [address] [place] [address] Care Team Providers Care Wire Mesh Gate Assembler Name Role Phone Renan Lawson MD Primary Care Provide r Edilberto Barahona PharmD Unavailable [phone] Richelle Albarado PharmD Unavailable [phone] Reason for Visit * Reason Onset Date Comments Reschedule 05/20/2023 Encounter Details Date Type Department Care Team ([facility] st Contact Info) Description 05/20/[address] [facility] [address] [place], [place] [phone] Renan Lawson MD [address] [place], [place] [phone] Reschedule Social History Tobacco Use Types Packs/Day [...] knee injection appointment. Please contact pt at [phone] (Croatian speaker) documented in this encounter Plan of Treatment Upcoming Encounters Date Type Department Care Team (Late st Contact Info) Description 03/23/2025 1:15 PM EDT Office Visit [facility] [address] [place], [place] [phone] Renan Lawson MD [address] [place] [phone] documented as of this encounter Goals Goal [...] documented as of this encounter Care Teams Wire Mesh Gate Assembler Relationship Specialty Start Date End Date Renan Lawson MD [address] [place] [phone] PCP - General Internal Medicine 12/10/21 Edilberto Barahona PharmD [address] [place] [address] [phone] Pharmacist Internal Medicine 07/14/23 10/24/24 Richelle Albarado PharmD [address] [place] [address] [phone] Pharmacist Internal Medicine 10/25/24 documented as of this encounter
== END 2025-02-01 14:10 | disposition home or self-care (01) ==
LOC: HO.HUSH 13:00
PROVIDERS: PCP Internal Medicine; Visit Provider Nurse Practitioner Family
DX: N28.1 Cyst of kidney, acquired (principal); R82.90 Unspecified abnormal findings in urine; N39.0 Urinary tract infection, site not specified; Z13.9 Encounter for screening, unspecified
CPT/HCPCS: 99214

== ENCOUNTER → 2025-02-24 13:30 | Outpatient (BNV) | payer MEDICARE, MEDICAID, SELFPAY | PROVIDERS: PCP Internal Medicine; Visit Provider Internal Medicine | DX: Z12.31 Encounter for screening mammogram for malignant neoplasm of breast (principal) | CPT/HCPCS: 77063; 77067 ==

== ENCOUNTER 2025-02-24 13:48 | Outpatient (REF) | payer MEDICARE, MEDICAID, SELFPAY ==
--- OUTSIDE RECORDS SUMMARY | 2025-02-24 14:10 | XMS_ITS | Encounter Summary ---
Author Organization [employer] Address [address] [place] [address] Care Team Providers Care Trade Recruiter Name Role Phone Renan Lawson MD Primary Care Provide r Richelle Albarado PharmD Unavailable [phone] Reason for Visit * Reason Onset Date Comments Med Refill 02/21/2025 Encounter Details Date Type Department Care Team (Late st Contact Info) Description 02/21/2025 Refill [facility] [address] [place] [address] Renan Lawson MD [address] [place], [place] [phone] Diabetes mellitus type 2 with neurological manifestations [...] encounter Miscellaneous Notes * Telephone Encounter - Denise Leyva LPN - 02/21/2025 2:19 PM EDT Last seen 09/29/24. documented in this encounter Plan of Treatment Upcoming Encounters Date Type Department Care Team (Late st Contact Info) Description 03/23/2025 1:15 PM EDT Office Visit [facility] [address] [place] [address] Renan Lawson MD [address] [place] [address] documented as of this encounter Goals Goal Patient Goal Type Associated Problems Recent Progress Patient-Stated? Author Blood Pressure < 140/90 Blood Pressure 144/90(2024 10:03 AM EDT) No Edilberto Barahona PharmD Blood Pressure < 140/90 Blood Pressure Hypertension 144/90(2024 10:03 AM EDT) No Barahona, Jerril, PharmD Keep fasting blood [...] documented as of this encounter Care Teams Trade Recruiter Relationship Specialty Start Date End Date Renan Lawson MD [address] [place] [phone] PCP - General Internal Medicine 12/10/21 Richelle Albarado PharmD [address] [place] [address] Pharmacist Internal Medicine 10/25/24 documented as of this encounter
--- OUTSIDE RECORDS SUMMARY | 2025-02-24 14:10 | XMS_ITS ---
Author Organization [facility] Address [address] [place] [address] Care Team Providers Care Gig Tender Name Role Phone Deandre Aparicio MD, Renan Primary Care Provide r Eric Wyman [phone] REASON FOR VISIT Patient presents today for a COLON SCREENING Encounters Encounter Location Date Provider Diagnosis [facility] [address] [place] [phone] 01/28/2024 Eric Emmanuel Plan Of Treatment No Information Progress Notes * COLE BOWLESDOB: (69 yo F)Acc No.[id number]:01/28/2024 Progress Notes Patient:?COLE BOWLES Provider:?Eric Emmanuel MD :1955???Age:68 Y???Sex:Female D ate:01/28/2024 Address:[address] [place] [address] [address] [id number] Pcp:Renan chavez MD Subjective: * Chief Complaints: [...] MD Date:? 024 Generated for Rebecca valdez/Marco/eTransmitting on:?02/24/2025 02:10 PM EDT
--- OUTSIDE RECORDS SUMMARY | 2025-02-24 14:10 | XMS_ITS | Encounter Summary ---
Author Organization [employer] [facility] Address [address] [place] [address] Care Team Providers Care Line Dancer Name Role Phone Renan Lawson MD Primary Care Provide r Edilberto Barahona PharmD Unavailable [phone] Richelle Albarado PharmD Unavailable [phone] Encounter Details Date Type Department Care Team (Late st Contact Info) Description 12/17/2022 Abstract [facility] [address] [place], [place] [phone] Renan Lawson MD [address] [place], [place] [phone] Social History Tobacco Use Types Packs/Day Years [...] Description 03/23/2025 1:15 PM EDT Office Visit [facility] [place] [address] [place] [address] documented as of this encounter Visit Diagnoses Not on filedocumented in this encounter Additional Health Concerns Assessment Noted Time PHQ-9 Depression Total Score: 0 12/02/19 10:15 AM EST documented as of this encounter Care Teams Line Dancer Relationship Specialty Start Date End Date [place] [address] PCP - General Internal Medicine 12/10/21 Edilberto Barahona, KyD [address] [place] [phone] Pharmacist Internal Medicine 07/14/23 10/24/24 Richelle Albarado, KyD [address] [place] [phone] Pharmacist Internal Medicine 10/25/24 documented as of this encounter
--- OUTSIDE RECORDS SUMMARY | 2025-02-24 14:10 | XMS_ITS | Encounter Summary ---
Author Organization [employer] [facility] Address [address] [place] [address] Care Team Providers Care Rn Surgery Icu Name Role Phone Renan Lawson MD Primary Care Provide r Edilberto Barahona PharmD Unavailable [phone] Richelle Albarado PharmD Unavailable [phone] Encounter Details Date Type Department Care Team (Late Contact Info) Description 10/22/2022 Orders Only [facility] PEDS [address] [place] [address] Denise Leyva LPN Social History Tobacco Use [...] [facility] [address] [place] [address] Renan Lawson MD [address] [place] [address] documented as of this encounter Visit Diagnoses Not on filedocumented in this encounter Care Teams Rn Surgery Icu Relationship Specialty Start Date End Date Renan Lawson MD [address] [place] [phone] PCP - General Internal Medicine 12/10/21 Edilberot Barahona, KyD [address] [place] [phone] Pharmacist Internal Medicine 07/14/23 10/24/24 Richelle Albarado, KyD [address] [place] [phone] Pharmacist Internal Medicine 10/25/24 documented as of this encounter
--- OUTSIDE RECORDS SUMMARY | 2025-02-24 14:10 | XMS_ITS | Encounter Summary ---
Author Organization [employer] [facility] Address [address] [place] [address] Care Team Providers Care Stock Buyer Name Role Phone Renan Lawson MD Primary Care Provide r Edilberto Barahona PharmD Unavailable [phone] Richelle Albarado PharmD Unavailable [phone] Encounter Details Date Type Department Care Team ([facility] Contact Info) Description 11/14/2022 Telephone [facility] [address] [place], [place] [phone] Renan Lawson MD [address] [place] [address] [phone] Social History Tobacco Use Types Packs/Day Years [...] Upcoming Encounters Date Type Department Care Team ([facility] Contact Info) Description 03/23/2025 1:15 PM EDT Office Visit [facility] [address] [place] [address] [phone] Renan Lawson MD [address] [place] [phone] documented as of this encounter Visit Diagnoses Not on filedocumented in this encounter Care Teams Stock Buyer Relationship Specialty Start Date End Date Renan Lawson MD [address] [place] [phone] PCP - General Internal Medicine 12/10/21 Edilberto Barahona PharmD [address] [place] [phone] Pharmacist Internal Medicine 07/14/23 10/24/24 Richelle Albarado, KyD [address] [place] [phone] Pharmacist Internal Medicine 10/25/24 documented as of this encounter
--- OUTSIDE RECORDS SUMMARY | 2025-02-24 14:10 | XMS_ITS | Encounter Summary ---
Author Organization [employer] [facility] Address [address] [place] [address] Care Team Providers Care Packaging Line Attendant Name Role Phone Renan Lawson MD Primary Care Provide r Edilberto Barahona PharmD Unavailable [phone] Richelle Albarado PharmD Unavailable [phone] Encounter Details Date Type Department Care Team (Late st Contact Info) Description 01/13/2023 Abstract [facility] [address] [place], [place] [phone] Renan Lawson MD [address] [place], [place] [phone] Social History Tobacco Use Types Packs/Day Years [...] Description 03/23/2025 1:15 PM EDT Office Visit [facility] [address] [facility] [place] [address] [place] [address] documented as of this encounter Visit Diagnoses Not on filedocumented in this encounter Additional Health Concerns Assessment Noted Time PHQ-9 Depression Total Score: 0 12/02/19 10:15 AM EST documented as of this encounter Care Teams Packaging Line Attendant Relationship Specialty Start Date End Date Renan Lawson MD [facility] [place] [address] PCP - General Internal Medicine 12/10/21 Edilberto Barahona, KyD [address] [place] [phone] Pharmacist Internal Medicine 07/14/23 10/24/24 Richelle Albarado, KyD [address] [place] [phone] Pharmacist Internal Medicine 10/25/24 documented as of this encounter
--- OUTSIDE RECORDS SUMMARY | 2025-02-24 14:11 | XMS_ITS | Clinical Summary ---
Author Organization [employer] Address [address] [facility] [address] [place] [address] Care Team Providers Care Employee Development Specialist Name Role Phone Renan Lawson MD Primary Care Provide r Richelle Albarado PharmD Unavailable [phone] Allergies Active Allergy Reactions Criticality Noted Date [...] daily. Active Blood Glucose Monitoring Suppl (FreeStyle [place] Lite) w/Device kit USE DIRECTED TO TEST [...] CGM placement). 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 Use daily as directed for CGM 1 each 024 Active amLODIPine (Norvasc) 10 MG tabletIndication s:Primary hypertension TAKE 1 TABLET BY MOUTH EVERY DAY IN THE MORNING 90 tablet 025 Active atorvastatin (Lipitor) 80 MG tabletIndication s:Mixed hyperlipidemia TAKE 1 TABLET BY MOUTH EVERY DAY AT BEDTIME 90 tablet 025 Active cetirizine (ZyrTEC) 10 MG tabletIndication s:Seasonal allergies TAKE 1 TABLET BY MOUTH EVERY DAY AT BEDTIME 90 tablet 025 Active ezetimibe (Zetia) 10 MG tabletIndication s:Mixed hyperlipidemia TAKE 1 TABLET BY MOUTH EVERY MORNING 90 tablet 025 Active metoprolol succinate XL (Toprol-XL) 50 MG 24 hr tabletIndication s:Primary hypertension TAKE 1 TABLET BY MOUTH EVERY MORNING DO NOT BREAK, CRUSH, DISSOLVE OR CHEW 90 tablet 025 Active cyanocobalamin (Vitamin B-12) 1000 MCG tabletIndication s: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 2 mL Active lisinopril 20 MG tabletIndication s:Primary hypertension Take 1 tablet (20 mg) by mouth Once per day. 30 tablet 025 Active Blood Pressure Monitoring (Blood Pressure Kit) kit Use to check blood pressure daily 1 kit 025 Active Continuous Glucose Sensor (FreeStyle Richard 3 Plus Sensor) misc 1 each every 15 days. Apply 1 every 15 days as directed for CGM 2 each Active pregabalin (Lyrica) 200 MG capsuleIndicatio ns:Fibromyalgia TAKE 1 CAPSULE BY MOUTH TWICE DAILY IN THE MORNING AND IN THE EVENING 60 capsule 025 Active insulin glargine (Basaglar KwikPen) 100 UNIT/ML penIndications:D iabetes mellitus type 2 with neurological manifestations (CMS/HCC) INJECT 42 UNITS SUBCUTANEOUSLY EVERY DAY 15 mL 1 025 Active insulin glargine (Basaglar KwikPen) 100 UNIT/ML penIndications:D iabetes mellitus type 2 with neurological manifestations (CMS/HCC) INJECT 42 UNITS SUBCUTANEOUSLY EVERY DAY 024 2024 Discontinued(R eorder (will not trigger notification [...] at home monitoring and current therapy - [facility] to check on status of Freestyle richard [...] Pt was seen by an orthopaedist at [facility]. Preventative health care 12/02/2022 Overview (09/07/2023): [...] a HDF, She was admitted to [facility] from 11/10--05/2023 She presented with syncope with [...] acute finding. Pt was seen by her Baccarat Manager Dr Freeman and is currently wearing an [...] atorvastatin, Zetia and Praluent. Last seen by Baccarat Manager Dr Freeman 07/2024 Assessment & Plan (09/15/2023 [...] Patient under the care of [employer] Ships Equipment Engineer, last seen 07/29/2024 Currently on Ventolin , uses albuterol nebulizarions as well. Dr Carson stopped her other inhalers Assessment & Plan (09/15/2023 3:23 PM EST): Patient under the care of [employer] Equipment Engineer, last seen April Currently on Ventolin and Breztri Aerosphere , uses albuterol nebulizarions as well Assessment & Plan (12/02/2022 8:52 AM EST): Patient under the care of [employer] Equipment Engineer, last seen January 2022 Currently on Ventolin [...] PM EST): Pt under the care of Warranty Clerk at [facility] , last seen 10/2023 Currently on a regimen of Dexilant 60 mg po daily and Omeprazole 40 mg po daily Assessment & Plan (12/02/2022 8:52 AM EST): Pt under the care of Warranty Clerk at [facility] Currently on a regimen of Dexilant 60 [...] (05/04/2023 3:40 PM EDT): - Freestyle Richard [place] and Sensor Ordered - A1c is not [...] found on MRI of lower back at [facility] in 2008, unchanged 2009. Sl enlarged 2013. Ref uro Davis's esophagus 01/03/2013 Overview (12/02/2022): Last EGD - Dr. Parviz Sommers, [facility] 01.06.2020 Assessment & Plan (09/29/2024 2:39 PM [...] History: - followed by Nixon's office [facility] Cardiology Assessment & Plan (09/29/2024 12:59 PM [...] being followed by Dr. Jarod Angelo ([address] [facility] [address] ). She is now under the care of the Pain Clinic at [facility] Re cent x-ray ordered by them 12/22/2023 [...] is being followed by Dr. Jarod Angelo ([address] ). She is now under the care of the Pain Clinic at [facility] Re cent x-ray ordered by them 12/22/2023 [...] request records from most recent MRI at [facility] pt is being followed by Dr. Jarod Angelo ([address] [facility] ). Depressive disorder 11/09/1959 Assessment & Plan (12/23/2022 2:42 PM EST): Patient under the care of psychiatrist at [facility] Currently on a regimen of: Clonazepam 0.5 mg po BID PRN, Trazodone 100 mg po qhs and Mirtazapine 45 mg po at bedtime Pt reports she has agoraphobia and cannot attend Jury Duty She is requesting a letter that due to the fact that she does not speak croatian and has a psychiatric condition that causes her extreme anxiety when she is surrounded by people, she cannot attend Jury duty Assessment & Plan (12/02/2022 8:44 AM EST): Patient under the care of psychiatrist at [facility] Currently on a regimen of: Clonazepam 0.5 [...] Encounters Date Type Department Care Team Description 02/21/2025 Refill [facility] [address] [place] [address] Renan Lawson MD Diabetes mellitus type 2 with neurological manifestations ([facility]/HCC) 02/03/2025 Telephone [facility] [address] [place] [phone] Renan Lawson MD Results 02/01/2025 Orders Only GENERIC EXTERNAL DATA DEPARTMENT Provider, Generic External Data 01/30/2025 Telephone [facility] [address] [place] [address] Britni Brink, MILES Paperwork/Forms 01/25/2025 Refill [facility] [address] [place] [address] Renan Lawson MD Fibromyalgia 01/23/2025 Travel 01/23/2025 Refill [facility] [address] [place] [address] Renan Lawson MD Diabetes mellitus type 2 with neurological manifestations ([facility]/HCC) 01/18/2025 Telephone [facility] [address] [place] [phone] Renan Lawson MD Chart Prep 01/18/2025 Patient Outreach [facility] [address] [place] [phone] Renan Lawson MD Care Coordination ([facility] outreach for SDOH food needs-referral completed /) 01/18/2025 Patient Outreach [facility] [address] [place] [phone] Renan Lawson MD Pre-visit Planning (SDOH Screening positive and Tobacco screening negative) 01/12/2025 Orders Only GENERIC EXTERNAL DATA DEPARTMENT Provider, Generic External Data 12/29/2024 Refill [facility] [address] [facility] [place] [address] Renan Lawson MD Fibromyalgia 12/28/2024 Refill [facility] [address] [place] [address] Renan Lawson MD 12/27/2024 Refill [facility] [address] [place], [place] [phone] Renan Lawson MD Primary hypertension; Diabetes mellitus type 2 with neurological manifestations ([facility]); Type 2 diabetes mellitus without complication, without long-term current use of insulin ([facility]) 12/01/2024 Refill [facility] [address] [place], [place] [phone] Ashtyn Dill, LAURYN Primary hypertension 11/29/2024 Refill [facility] [address] [place], [place] [phone] Edilberto Barahona, PharmD Diabetes mellitus type 2 with neurological manifestations ([facility]) 11/29/2024 Travel 11/29/2024 Refill [facility] [address] [place], [place] [phone] Renan Lawson MD Mixed hyperlipidemia; Fibromyalgia from Last 3 Months Immunizations Name Administration Dates Next Due Hep B, adult 01/23/2025,10/24/2024 Influenza High-dose Quadriva lent Preservative Free 07/25/2023,07/18/2021 [...] Sign Reading Time Taken Comments Blood Pressure 144/90 01/23/2025 10:03 AM EDT Pulse 87 09/29/2024 1:16 PM EST Temperature [...] Description 03/23/2025 1:15 PM EDT Office Visit [facility] [address] [place], [place] [phone] Renan Lawson MD [address] [place], [place] [phone] Health Maintenance Due Date Last Done Comments CT Colonography 1955 Colonoscopy 1955 Colorectal Cancer Screening 1955 FIT DNA/Cologuard 1955 FIT 1955 FOBT 1955 Sigmoidoscopy 1955 Diabetes: Foot Exam 1965 RSV Patients and Patients Aged 60 years or older (1 - Risk 60-74 years 1-dose series) 2015 Diabetes: Urine Protein Screening 12/19/2022 12/19/2021 Depression Screening 12/29/2024 12/29/2023, 12/29/19 24 Mammogram 02/18/2025 02/19/2024, 03/14/2022 Diabetes: Hemoglobin A1C 04/14/2025 032 025, 09/09/2024, 07/07/2024, Additional history exists Hepatitis B Vaccines (3 of 3 - 19+ 3-dose series) 04/24/2025 01/23/2025, 10/24/2024 Alcohol/Substance Use Screening 09/29/2025 09/29/2024 Tobacco Screening [...] Pressure Hypertension 144/90(2024 10:03 AM EDT) No Edilberto Barahona PharmD Keep fasting blood [...] manifestations 8.3( 2:04 PM EST) No Edilberto Barahona, PharmPercy Procedures Procedure Name Priority Date/Time Associated Diagnosis Comments CULTURE, URINE, ROUTINE Routine 02/02/20 12:59 PM EDT MR ABDOMEN W AND WO CONTRAST Routine [...] IMMUNOGLOBULIN G Routine 01/12/2025 2:04 PM EST [id number] QN Routine 2:04 PM EST CERULOPLASMIN Routine [...] EST CBC Routine 01/12/2025 2:04 PM EST BI MAMMOGRAM SCREENING TOMOSYNTHESIS BILATERAL Routine 02/19/2024 2:10 PM EDT ALBUMIN, RANDOM URINE W/CREATININE Routine 12/19/2021 8:51 AM EST from Last 3 Months or Most Recently Relevant to Health Maintenance Results * Culture, Urine, Routine (02/01/2025 12:59 PM EDT) Urine Urine specimen obtained by clean catch procedure / Unknown 02/01/2025 12:59 PM EDT 02/01/2025 4:37 PM EDT Comment:UACC Narrative [facility] - 02/03/2025 7:43 AM EDT Escherichia coli Quant > 100,000 cfu/mL Escherichia coli: Ampicillin 8(S) Escherichia coli: Cefazolin (Urine) <=1(S) Escherichia coli: Cefepime <=0.12(S) Escherichia coli: Ceftriaxone <=0.25(S) Escherichia coli: Ciprofloxacin <=0.06(S) Escherichia coli: Gentamicin <=1(S) Escherichia coli: Nitrofurantoin <=16(S) Escherichia coli: Trimethoprim/Sulfamethoxazole <=20(S) Specimen Source: Urine clean catch us Generic External Data Provider LAB MICROBIOLOGY - GENERAL ORDERABLES Final Result Performing Organization Address [facility]/State/ZIP Co de Phone Number [facility] [address] [place] [address] [phone] * MR Abdomen w/ and w/o Contrast (01/22/2025 3:49 PM EDT) Anatomical Region Laterality Modality Abdomen Magnetic Resonan ce 01/22/2025 3:49 PM EDT Narrative 01/23/2025 7:09 AM EDT ? [facility] ?[address] ?[place] [address] ? Magnetic Resonance Report ? Signed ? Patient: Naa Pedersen ?MR#: [id number] ?? [id number] ? : 1955 ?Acct:[id number] ? Age/Sex: 69 / F ?ADM Date: 01/22/25 ? Loc: HO.MRI ? Attending Dr: Jennifer Conn MD ? Ordering Physician: Jennifer Conn MD ?? Date of Service: 01/22/25 ?? Procedure(s): MR abdomen wo/w con ?? Accession Number(s): [id number] ? cc: Renan Cabral MD; Jennifer Conn [...] DD/ 1549 ? TD/TT: 01/22/25 1612 ? Professor Of Literature: ? Procedure Note [place] - 01/23/[address] [address] Magnetic Resonance Report Signed Patient: Naa Pedersen EMR#: [id number] : 6Acct:[id number] Age/Sex: 69 / FADM Date: 01/22/25 Loc: HO.MRI Attending Dr: Jennifer Conn MD Ordering Physician: Jennifer Conn MD Date of Service: 01/22/25 Procedure(s): MR abdomen wo/w con Accession Number(s): [id number] cc: Renan Cabral MD; Jennifer Conn MD [...] 01/23/25 0706 DD/ 1549 TD/TT: 01/22/25 1612 Professor Of Literature: [facility] External Provider IMG MRI PROCEDURES Final Result * Hepatitis C Ab (01/12/2025 2:04 PM EST) Pathologist [facility] Hepatitis C Antibody Nonreactive Nonreactive [facility] Comment:Antibodies to HCV no t detected; does not exclude early acuteHCV infection. 01/12/2025 2:04 PM EST 01/12/2025 2:04 PM EST Generic External Data Provider LAB BLOOD ORDERAB LES Final Result Performing Organization Address [facility]/ZIP Co de Phone Number [facility] [address] [place] [phone] * HCV RNA BY PCR, QN RFX MADDISON (01/12/2025 2:04 PM EST) Pathologist [facility] HCV RNA PCR QN <15 NOT DETECTED NOT DETECTED IU/mL [facility] HCV RNA PCR QN <1.18 NOT DETECTED NOT DETECTED Log IU/mL [facility] HCV RNA COMMENT SEE NOTE [facility] Comment:For additional infor mation, please refer tohttp://education.UTStarcom/faq/VDZ45q2(This link is being provided for informational/Educational purposes only.)THIS TEST WAS PERFORMED AT:[id number] [place] [phone] SNOWDEN MD HCV RNA GENOTYPE,LIPA TNP [facility] Comment:Test not indicated. 01/12/2025 2:04 PM EST 01/12/2025 2:04 PM EST Generic External Data Provider LAB BLOOD ORDERAB LES Final Result Performing Organization Address [facility]/ZIP Co de Phone Number [facility] [address] [place] [phone] * Drug Monitoring, Phosphatidylethanol (PEth), Blood (01/12/2025 2:04 PM EST) Phosphatidylethanol, Blood NEGATIVE [facility] Comment:REFERENCE RANGE: <20 ng/mLTHIS TEST PERFORMED AT:[employer] [id number] [place], [place] [phone] DIRECTOR: HUSSEIN COREAS MD, PHD formerly [facility] 16:0/18:2 (PLPEth) NEGATIVE [facility] Comment:REFERENCE RANGE: <20 ng/mLTHIS TEST PERFORMED AT:[employer] [place] [id number] [place], [place] [phone] DIRECTOR: HUSSEIN COREAS MD, PHD formerly [facility] Comments SEE NOTE [facility] Comment:This drug testing is for medical treatment only. Analysiswas performed as non-forensic testing and these resultsshould be used only by healthcare providers to renderdiagnosis or treatment, or to monitor progress of medicalconditions.LDT Notes:Confirmation tests were developed and their analyticalperformance characteristics have been determined by [employer]. It has not been cleared or approved by the FDA.This assay has been validated pursuant to the CLIAregulations and is used for clinical purposes.Healthcare Providers needing Interpretation assistance,please contact us at [phone] ( ) M-F,8am to 10pm ESTTHIS TEST PERFORMED AT:[id number] [place] [phone] DIRECTOR: JESUS SNOWDEN MD 01/12/2025 2:04 PM EST 01/12/2025 2:04 PM EST us Generic External Data Provider LAB BLOOD ORDERAB LES Final Result [facility] [address] [place] [phone] * Iron And Total Iron Binding Capacity (01/12/2025 2:04 PM EST) Iron 42 30 - 160 mcg/dL [facility] Total Iron Binding Capacity 256 228 - 428 mcg/dL [facility] Percent Iron Saturation 16 15 - 50 % [facility] Unsaturated Iron Binding 214 ug/dL [facility] 01/12/2025 2:04 PM EST 01/12/2025 2:04 PM EST us Generic External Data Provider LAB BLOOD ORDERAB LES Final Result Performing Organization Address [facility]/ZIP Co de Phone Number [facility] [address] [place] [address] [phone] * Actin (Smooth Muscle) Antibody (IgG) (01/12/2025 2:04 PM EST) Smooth Muscle Antibody <20 <20 U [facility] Comment:Reference Range: <20 U: Negative>or=20 [...] with AIH type 1.THIS TEST WAS PERFORMED AT:[employer]/[id number] [place] [phone] COREAS MD,PHD 01/12/2025 2:04 PM EST 01/12/2025 2:04 PM EST us Generic External Data Provider LAB BLOOD ORDERAB LES Final Result Performing Organization Address [facility]/ZIP Co de Phone Number [facility] [address] [place] [phone] * Iicbz-8-Jtknnivsnod, Quantitative (01/12/2025 2:04 PM EST) Izlbq-9-Nttstegx sin QN 172 83 - 199 mg/dL [facility] Comment:THIS TEST WAS PERFOR MED AT:[id number] [place] [phone] SNOWDEN MD 01/12/2025 2:04 PM EST 01/12/2025 2:04 PM EST Generic External Data Provider LAB BLOOD ORDERAB LES Final Result Performing Organization Address [facility] Co de Phone Number [facility] [address] [place] [phone] * Hepatitis A Antibody, Total (01/12/2025 2:04 PM EST) Pathologist [facility] Hepatitis A Antibody IgG REACTIVE Nonreactive [facility] Comment:The presence of IgG anti-HAV implies past HAV infection(recent or distant) or vaccination against HAV. 01/12/2025 2:04 PM EST 01/12/2025 2:04 PM EST Generic External Data Provider LAB BLOOD ORDERAB LES Final Result Performing Organization Address [facility] de Phone Number [facility] [address] [place] [phone] * Tissue Transglutaminase Antibody, IgA (01/12/2025 2:04 PM EST) Pathologist [facility] Transglutaminase IgA <1.0 U/mL [facility] Comment:Value Interpretation ----- <15.0 Antibody not detected> or = 15.0 Antibody detectedTHIS TEST WAS PERFORMED AT:[id number] [place] [phone] SNOWDEN MD 01/12/2025 2:04 PM EST 01/12/2025 2:04 PM EST Generic External Data Provider LAB BLOOD ORDERAB LES Final Result Performing Organization Address City/[facility]/ZIP Co de Phone Number [facility] [address] [place] [address] [phone] * Ceruloplasmin (01/12/2025 2:04 PM EST) Ceruloplasmin 33 14 - 48 mg/dL [facility] Comment:THIS TEST WAS PERFOR MED AT:[facility] [address] [phone] SNOWDEN MD 01/12/2025 2:04 PM EST 01/12/2025 2:04 PM EST Generic External Data Provider LAB BLOOD ORDERAB LES Final Result Performing Organization Address [facility] Co de Phone Number [facility] [address] [place] [phone] * Alpha-Fetoprotein, Tumor Marker (01/12/2025 2:04 PM EST) Alpha Fetoprotein 4.2 ng/mL [facility] Comment:Reference Range: <6. 1The use of AFP as a tumor marker in females is not recommended.This test was performed using the Jaky Coulterchemiluminescent method. Values obtained fromdifferent assay methods cannot be usedinterchangeably. AFP levels, regardless ofvalue, should not be interpreted as absoluteevidence of the presence or absence of disease.THIS TEST WAS PERFORMED AT:[facility] [address] [phone] SNOWDEN MD 01/12/2025 2:04 PM EST 01/12/2025 2:04 PM EST Generic External Data Provider LAB BLOOD ORDERAB LES Final Result Performing Organization Address [facility] Co de Phone Number [facility] [address] [place] [address] [phone] * Hepatitis B surface antigen, EIA (01/12/2025 2:04 PM EST) Hepatitis B Surface Ag Negative Negative [facility] 01/12/2025 2:04 PM EST 01/12/2025 2:04 PM EST us Generic External Data Provider LAB BLOOD ORDERAB LES Final Result Performing Organization Address [facility]/ZIP Co de Phone Number [facility] [address] [place] [phone] * Hepatitis B Core Antibody, Total (01/12/2025 2:04 PM EST) Hepatitis B Core Antibody Nonreactive Nonreactive [facility] 01/12/2025 2:04 PM EST 01/12/2025 2:04 PM EST Generic External Data Provider LAB BLOOD ORDERAB LES Final Result Performing Organization Address [facility] de Phone Number [facility] [address] [place] [phone] * Liver Kidney Microsomal (LKM-1) Antibody??(IgG) (01/12/2025 2:04 PM EST) Liver Kidney Microsomal (LKM-1) Antibody IgG <=20.0 <=20.0 U [facility] Comment:Reference Range: <=2 0.0 Negative [...] patients with hepatitis Cinfection.THIS TEST WAS PERFORMED AT:[facility]/[id number] [place] [address]BKUZOQHHUSSEIN COREAS MD,PHD 01/12/2025 2:04 PM EST 01/12/2025 2:04 PM EST us Generic External Data Provider LAB BLOOD ORDERAB LES Final Result Performing Organization Address [facility] Co de Phone Number [facility] [address] [place] [phone] * Mitochondrial Antibody with Reflex to Titer (01/12/2025 2:04 PM EST) Mitochondrial Antibodies NEGATIVE NEGATIVE [facility] Comment:THIS TEST WAS PERFOR MED AT:[id number] [place] [phone] SNOWDEN MD Mitochondrial Ab Titer TNP [facility] 01/12/2025 2:04 PM EST 01/12/2025 2:04 PM EST Generic External Data Provider LAB BLOOD ORDERAB LES Final Result Performing Organization Address [facility] Co de Phone Number [facility] [address] [place] [phone] * HIV-1/2 Antigen and Antibodies, Fourth Generation, with Reflexes (01/12/2025 2:04 PM EST) HIV AB/AG Nonreactive Nonreactive [facility] Comment:HIV-1 p24 Ag and/or HIV-1/HIV-2 Ab not detected.A test result that is nonreactive does not exclude thepossibility of exposure to or infection with HIV-1 and/orHIV-2. Nonreactive results in this assay for individualswith prior exposure to HIV-1 and/or HIV-2 may be due toantigen and antibody levels that are below the limit ofdetection of this assay.The [employer] HIV Ag/Ab Combo assay result andsupplemental assay results should be interpreted inconjunction with the patient's clinical presentation,history and other laboratory results. If the results areinconsistent with clinical evidence, additional testing issuggested to confirm the result. 01/12/2025 2:04 PM EST 01/12/2025 2:04 PM EST us Generic External Data Provider LAB BLOOD ORDERAB LES Final Result Performing Organization Address [facility] Co de Phone Number [facility] [address] [place] [phone] * Hepatitis B Surface Antibody, Qualitative (01/12/2025 2:04 PM EST) ~Hepatitis B Surface Antibody NONREACTIVE Nonreactive [facility] Comment:Nonreactive: < 8.00 mIU/mL 01/12/2025 2:04 PM EST 01/12/2025 2:04 PM EST us Generic External Data Provider LAB BLOOD ORDERAB LES Final Result Performing Organization Address [facility] Phone Number [facility] [address] [place] [phone] * Prothrombin Time-INR (01/12/2025 2:04 PM EST) Prothrombin Time 11.4 10.9 - 12.4 SEC [facility] INTERNATIONAL NORM RATIO 1.0 0.9 - 1.1 [facility] Comment:INTERNATIONAL NORMAL IZED RATIO (INR) [...] ORDERAB LES Final Result Performing Organization Address [facility] Co de Phone Number [facility] [address] [place] [address] [phone] * (ABNORMAL) CBC (01/12/2025 2:04 PM EST) White Blood Count 9.2 4.8 - 10.8 X10*3/uL [facility] Red Blood Count 4.69 4.20 - 5.50 X10*6/uL [facility] Hemoglobin 12.0 12.0 - 16.0 g/dl [facility] Hematocrit 38.5 37.0 - 47.0 % [facility] Mean Corpuscular Volume 82.1 80.0 - 98.0 fL [facility] Mean Corpuscular Hemoglobin 25.6(L) 27.0 - 33.0 pg [facility] Mean Corpuscular HGB Conc 31.2 31.0 - 35.0 g/dl [facility] Red Cell Distribution Width 13.8 11.0 - 16.0 % [facility] Platelet Count 203 160 - 400 X10*3/uL [facility] Mean Platelet Volume 9.8 9.4 - 12.3 fL [facility] NRBC Pct Auto 0.0 0.0 - 0.2 /100WBC [facility] NRBC Abs Auto 0.000 0.0 - 0.012 X10*3/uL [facility] 01/12/2025 2:04 PM EST 01/12/2025 2:04 PM EST us Generic External Data Provider LAB BLOOD ORDERAB LES Final Result [facility] [address] [place] [address] [phone] * [place] Screen,IFA, with Reflex to Titer and Pattern (01/12/2025 2:04 PM EST) Anti Nuclear Antibody Screen NEGATIVE NEGATIVE [facility] Comment:[place] IFA is a first [...] clinicallysuspected inflammatory myopathies.AC-0: NegativeInternational Consensus on [place] Patterns(https://doi.org/10.1515/kipa-7253-1850)For additional information, please refer tohttp://education.Channelkit/faq/UXY549(This link is being provided for informational/educational purposes only.)THIS TEST WAS PERFORMED AT:[employer] [place] [phone] SNOWDEN MD [place] Titer TNP [facility] [place] Pattern [facility] [place] TITER 2 (REF LAB) [facility] [place] Pattern 2 [facility] [place] TITER 3 [facility] [place] PATTERN 3 [facility] 01/12/2025 2:04 PM EST 01/12/2025 2:04 PM EST us Generic External Data Provider LAB BLOOD ORDERAB LES Final Result [facility] [address] [place] [phone] * (ABNORMAL) Hemoglobin A1c (01/12/2025 2:04 PM EST) Hemoglobin A1c 8.3(H) <6.0 % [facility] Comment:Hemoglobin A1C Refer ence Range Adults: 4.8 - 6.0 % Non diabetic: < 6.0 % Goal: < 7.0 %Additional Action Suggested: > 8.0 %Note: Hemoglobin A1c results are invalid for patients with abnormal amounts of HbF. Blood transfusions may impact the HbA1c concentration in the patient sample. Estimated Average Glucose 192 mg/dL [facility] Comment:eAG = Estimated ave rage glucose which is %A1C expressed asaverage glucose, using the formula of the A8E-DyilxifEehcgea Glucose study (ADAG), Diabetes Care, Vol.31,#8,2007 01/12/2025 2:04 PM EST 01/12/2025 2:04 PM EST Generic External Data Provider LAB BLOOD ORDERAB LES Final Result Performing Organization Address [facility] Phone Number [facility] [address] [place] [phone] * (ABNORMAL) Gamma Glutamyl Transferase (GGT) (01/12/2025 2:04 PM EST) Gamma Glutamyl Transpeptidase 169(H) 7 - 33 U/L [facility] 01/12/2025 2:04 PM EST 01/12/2025 2:04 PM EST Generic External Data Provider LAB BLOOD ORDERAB LES Final Result Performing Organization Address [facility] [address] [place] [phone] * (ABNORMAL) Immunoglobulin A (01/12/2025 2:04 PM EST) Immunoglobulin A 383(A) 70 - 320 mg/dL [facility] Comment:THIS TEST WAS PERFOR MED AT:[employer] [address] [phone] SNOWDEN MD 01/12/2025 2:04 PM EST 01/12/2025 2:04 PM EST Generic External Data Provider LAB BLOOD ORDERAB LES Final Result Performing Organization Address [facility] Phone Number [facility] [address] [place] [phone] * Immunoglobulin G (01/12/2025 2:04 PM EST) Immunoglobulin G 1439 600 - 1540 mg/dL [facility] Comment:THIS TEST WAS PERFOR MED AT:[facility] [facility] [address] [phone] SNOWDEN MD 01/12/2025 2:04 PM EST 01/12/2025 2:04 PM EST us Generic External Data Provider LAB BLOOD ORDERAB LES Final Result Performing Organization Address [facility]/ZIP Co de Phone Number [facility] [address] [place] [phone] * Ferritin (01/12/2025 2:04 PM EST) Ferritin 35 10 - 250 ng/mL [facility] 01/12/2025 2:04 PM EST 01/12/2025 2:04 PM EST Generic External Data Provider LAB BLOOD ORDERAB LES Final Result Performing Organization Address [facility] de Phone Number [facility] [address] [place] [phone] * (ABNORMAL) Lipid Panel, Standard (01/12/2025 2:04 PM EST) Triglycerides 271(H) <150 mg/dL [facility] Comment:Desirable Triglyceri de: less than 150 mg/dLBorderline High Triglyceride 150-199 mg/dLHigh Triglyceride: 200-499 mg/dLVery High Triglyceride: greater than or equal to 5OO mg/dL Cholesterol 270(H) <200 mg/dL [facility] Comment:Desirable Cholestero l: less than 200 mg/dLBorderline High Cholesterol: 200-239 mg/dLHigh Cholesterol: greater than 239 mg/dL LDL Cholesterol Calculated 173(H) <100 mg/dL [facility] Comment:Desirable LDL: less than 100 mg/dLNear Optimal/Above Optimal LDL: 110- 129 mg/dLBorderline High LDL: 130-159 mg/dLHigh LDL: 160-189 mg/dLVery High LDL: greater than or equal to 190 mg/dL HDL Cholesterol 43 >40 mg/dL [facility] Comment:Desirable HDL: great er than 40 mg/dL Note: This HDL assay may give artificially low results in patients with liver disease. 01/12/2025 2:04 PM EST 01/12/2025 2:04 PM EST us Generic External Data Provider LAB BLOOD ORDERAB LES Final Result [facility] [address] [place] [phone] [phone] * (ABNORMAL) Comprehensive Metabolic Panel (01/12/2025 2:04 PM EST) Sodium 140 135 - 145 mmol/L [facility] Potassium 3.4 3.3 - 5.1 mmol/L [facility] Chloride 107 96 - 108 mmol/L [facility] Carbon Dioxide 22 22 - 29 mmol/L [facility] Anion Gap 14 12 - 20 [facility] Urea Nitrogen (BUN) 10 9 - 16 mg/dL [facility] Creatinine, Serum 0.77 0.5 - 1.4 mg/dL [facility] Estimated Glomerular Filt Rate >60 [facility] Comment:Chronic Kidney Disea se: Estimated GFR < 60 mL/min/1.61w1Botsth Kidney Disease: Estimated GFR < 15 mL/min/1.73m2 Glucose 297(H) 60 - 115 mg/dL [facility] Calcium 8.8 8.4 - 10.2 mg/dL [facility] Bilirubin, Total 0.3 0.0 - 1.0 mg/dL [facility] Aspartate Amino Transferase 41(H) 5 - 31 U/L [facility] Alanine Aminotransferase 41(H) 0 - 31 U/L [facility] Total Protein 8.0 6.5 - 8.0 g/dL [facility] Albumin Level 3.9 3.5 - 5.0 g/dL [facility] Alkaline Phosphatase 122(H) 39 - 117 U/L [facility] 01/12/2025 2:04 PM EST 01/12/2025 2:04 PM EST us Generic External Data Provider LAB BLOOD ORDERAB LES Final Result [facility] [address] [place] [phone] * BI Mammogram Screening Tomosynthesis Bilateral (02/19/2024 2:10 PM EDT) Anatomical Region Laterality Modality Breast Bilateral Mammography 02/19/2024 2:10 PM EDT Narrative 03/17/2024 10:25 PM EDT ? [facility] ? [address] ?[place] [address] ? Mammography Report ? Signed ? Patient: Naa Pedersen ?MR#: [id number] ?? [id number] ? : 1955 ?Acct:[id number] ? Age/Sex: 68 / F ?ADM Date: 02/19/24 ? Loc: HO.MAMMO ? Attending Dr: Renan Cabral MD ? Ordering Physician: Renan Cabral MD ?Resu ?? lts: 2Benign Findings ? Date of Service: 02/19/24 ?Follow Up: 1 Year From Orig ?? inal Mammogram ? Procedure(s): MM tomosynthesis screening BI ?? Accession Number(s): [id number] ? cc: Renan Cabral MD ? EXAMINATION: ?? MM SCREENING DIGITAL BREAST TOMOSYNTHESIS, BILATERAL ? CLINICAL INFORMATION: ? Screening. Asymptomatic. ? COMPARISON: ?? Mammography: This study is compared with prior exams dating back to ?? 2018. ? TECHNIQUE: ?? Digital breast tomosynthesis is [...] 2221 ? DD/ 1410 ? TD/TT: ? Professor Of Literature: ? Procedure Note Martin, Image - 03/17/2024 [facility] [address] [place], [place] [address] Mammography Report Signed Patient: Naa Pedersen [facility]#: [id number] : 6Acct:[id number] Age/Sex: 68 / FADM Date: 02/19/24 Loc: DIPTI Attending Dr: Renan Cabral MD Ordering Physician: Renan Cabralu lts: 2Benign Findings Date of Service: 02/19/24Follow Up: 1 Year From Orig inal Mammogram Procedure(s): MM tomosynthesis screening BI Accession Number(s): [id number] cc: Renan Cabral MD EXAMINATION: MM SCREENING [...] in OV> 03/17/24 2221 DD/ 1410 TD/TT: Professor Of Literature: us Renan Aparicio MD IMG BI PROCEDURES [...] Creatinine, Urine 108 20 - 275 mg/dL [facility] 12/19/2021 8:51 AM EST us Renan Aparicio MD LAB URINE ORDERABLES Final Result [facility] [address] from Last 3 Months or Most Recently Relevant to Health Maintenance Insurance MEDICARE [facility] STANDARD Care Teams Employee Development Specialist Relationship Specialty Start Date End Date Renan Lawson MD [address] [place] [address] PCP - General Internal Medicine 12/10/21 Richelle Albarado PharmD [address] [place] [address] Pharmacist Internal Medicine 10/25/24
--- OUTSIDE RECORDS SUMMARY | 2025-02-24 14:11 | XMS_ITS | Encounter Summary ---
Author Organization [employer] [facility] Address [address] 7[address] [place] [address] Care Team Providers Care Cam Milling Machine Operator Name Role Phone Renan Lawson MD Primary Care Provide r Edilberto Barahona PharmD Unavailable [phone] Richelle Albarado PharmD Unavailable [phone] Reason for Visit * Reason Comments Med Refill Encounter Details Date Type Department Care Team ([facility] st Contact Info) Description 08/26/2024 Refill [facility]INE [address] [place], [place] [phone] Renan Lawson MD [address] [place], [place] [phone] Social History Tobacco Use Types Packs/Day Years [...] 1:15 PM EDT Office Visit [facility] MEDICINE [address] [place] [phone] Renan Lawson MD [address] [place] [address] documented as of this encounter Goals Goal Patient Goal Type Associated Problems Recent Progress Patient-Stated? Author Blood Pressure < 140/90 Blood Pressure 144/90(2024 10:03 AM EDT) No Edilberto Barahona PharmPercy Blood Pressure < [...] documented as of this encounter Care Teams Cam Milling Machine Operator Relationship Specialty Start Date End Date Renan Lawson MD [address] [place] [address] PCP - General Internal Medicine 12/10/21 Edilberto Braahona, PharmD [address] [place] [address] Pharmacist Internal Medicine 07/14/23 10/24/24 Richelle Albarado, KyD [address] [place] [address] Pharmacist Internal Medicine 10/25/24 documented as of this encounter
--- OUTSIDE RECORDS SUMMARY | 2025-02-24 14:11 | XMS_ITS | Patient Health Record ---
Author Organization [facility] Address [address] [place] [address] Care Team Providers Care Insulation Applicator Name Role Phone Deandre Aparicio MD, Renan Primary Care Provide r Unavailable Eric Emmanuel Unavailable [phone] Reason For Referral No Information Plan Of Treatment No Information Insurance Providers Payer Name Payer Address Payer Phone Subscriber Number Group Number Insured Name Patient Relationship to Insured Coverage Start Date Coverage End Date MEDICARE OF [place] [address] [place] [address] [id number] COLE BOW[place] Self - patient is the insured MEDICAID OF [facility] [address] [place] [address] [id number] COLE [place]OWLES Self - patient is the insured
--- OUTSIDE RECORDS SUMMARY | 2025-02-24 14:11 | XMS_ITS | Encounter Summary ---
Author Organization [employer] Address [address] 7t [place] [address] Care Team Providers Care Flexo Operator Name Role Phone Renan Lawson MD Primary Care Provide r Edilberto Barahona PharmD Unavailable [phone] Richelle Albarado PharmD Unavailable [phone] Reason for Visit * Reason Comments Med Refill Encounter Details Date Type Department Care Team ([facility] st Contact Info) Description 02/09/[address] [facility] MEDICINE [address] [place], [place] [phone] Renan Lawson MD [address] [place], [place] [phone] Fibromyalgia Social History Tobacco Use Types Packs/Day [...] 1:15 PM EDT Office Visit [facility] MEDICINE [address] [place] [address] Renan Lawson MD [address] [place] [address] documented as of this encounter Goals Goal [...] documented as of this encounter Care Teams Flexo Operator Relationship Specialty Start Date End Date Renan Lawson MD [address] [place] [address] PCP - General Internal Medicine 12/10/21 Edilberto Barahona PharmD [address] [place] [address] Pharmacist Internal Medicine 07/14/23 10/24/24 Richelle Albarado PharmD [address] [place] [address] Pharmacist Internal Medicine 10/25/24 documented as of this encounter
--- OUTSIDE RECORDS SUMMARY | 2025-02-24 14:11 | XMS_ITS ---
Author Organization [facility] Address [address] [place] [address] Care Team Providers Care Sampler First Name Role Phone Deandre Aparicio MD, Renan Primary Care Provide r Eric Wyman [phone] REASON FOR VISIT Pt no show Encounters Encounter Location Date Provider Diagnosis [facility] [address] [place] [address] 01/28/2024 Eric Emmanuel Plan Of Treatment No Information Progress Notes * BOWLES COLEDOB: 6 (68 yo F)Acc No.[id number]:01/28/2024 Patient:?COLE BOWLES :1955???Age:68 Y???Sex:Female Address:[address] [place] [address] [address] , [place] * true * Date:? Generated for Cesari josé miguel/Marco/eTransmitting on:?02/24/2025 02:10 PM EDT
--- OUTSIDE RECORDS SUMMARY | 2025-02-24 14:11 | XMS_ITS | Encounter Summary ---
Author Organization [employer] [facility] Address [address] 7[address] [place] [address] Care Team Providers Care Case Specialist Name Role Phone Renan Lawson MD Primary Care Provide r Edilberto Barahona PharmD Unavailable [phone] Richelle Albarado PharmD Unavailable [phone] Reason for Visit * Reason Onset Date Comments Reschedule 05/20/2023 Encounter Details Date Type Department Care Team ([facility] st Contact Info) Description 05/20/2023 Telephone [facility] MEDICINE [address] [place], [place] [phone] Renan Lawson MD [address] [place], [place] [phone] Reschedule Social History Tobacco Use Types Packs/Day [...] knee injection appointment. Please contact pt at [phone] (Azeri speaker) documented in this encounter Plan of Treatment Upcoming Encounters Date Type Department Care Team (Late st Contact Info) Description 03/23/2025 1:15 PM EDT Office Visit [facility] [address] [place], [place] [phone] Renan Lawson MD [address] [place] [address] documented as of this encounter Goals Goal Patient Goal Type Associated Problems Recent Progress Patient-Stated? Author Blood Pressure < 140/90 Blood Pressure 144/90(2024 10:03 AM EDT) No Edilberto Barahona PharmPercy Keep fasting blood glucose between 70 and 130 Result Component No Edilberto Barahona PharmD documented as of this encounter Visit Diagnoses Not on filedocumented in this encounter Additional Health Concerns Assessment Noted Time PHQ-9 Depression Total Score: 0 12/02/19 23 10:15 AM EST documented as of this encounter Care Teams Case Specialist Relationship Specialty Start Date End Date Renan Lawson MD [address] [place] [address] [phone] PCP - General Internal Medicine 12/10/21 Edilberto Barahona PharmD [address] [place] [address] [phone] Pharmacist Internal Medicine 07/14/23 10/24/24 Richelle Albarado PharmD [address] [place] [address] [phone] Pharmacist Internal Medicine 10/25/24 documented as of this encounter
--- OUTSIDE RECORDS SUMMARY | 2025-02-24 14:11 | XMS_ITS | Encounter Summary ---
Author Organization [facility] Address [address] [place] [address] Care Team Providers Care Heel Reducer Name Role Phone Renan Lawson MD Primary Care Provide r Edilberto Barahona PharmD Unavailable [phone] Richelle Albarado PharmD Unavailable [phone] Reason for Referral * Imaging (Routine) - Closed Specialty Diagnoses / Procedures Referred By Tiffany milian Referred To Contact Radiology Diagnoses Right lower quadrant abdominal pain Procedures US Pelvis Transvaginal Moira Edouard FNP [address] [place] [address] Phone: tel: fax: [address] Phone: tel: fax: Referral ID Status Reason Start Date Expiration Date Visits Re quested Visits Authorized [id number] Closed 08/07/2023 08/06/2024 1 1 Encounter Details Date Type Department Care Team (Late st Contact Info) Description 08/07/2023 Orders Only [facility] [address] [place] [address] Moira Edouard FNP [address] [place] [address] Right lower quadrant abdominal pain (Primary Dx) [...] 03/23/2025 1:15 PM EDT Office Visit [facility] [address] [place] [address] Renan Lawson MD [address] [place] [address] documented as of this encounter Goals Goal [...] EST Narrative 10/08/2023 5:03 PM EST ? [facility] ?[address] ?[place] [address] ? Ultrasound Report ? Signed ? Patient: Slava,Christianne ?MR#: [id number] ?? [id number] ? : 1955 ?Acct:[id number] ? Age/Sex: 67 / F ?ADM Date: 10/07/23 ? Loc: HO.US ? Attending Dr: Moira Edouard NP ? Ordering Physician: Moira Edouard NP ?? Date of Service: 10/07/23 ?? Procedure(s): US pelvic and transvaginal ?? Accession Number(s): [id number] ? cc: Moira Edouard NP; Renan Cabral [...] by Lynette Underwood MD in OV> ? 11/30/ 1659 ? DD/DT: // 1146 ? TD/TT: ? Receptionist/Telephone Operator: ? Procedure Note Donotuseinterpreter, Image - 10/08/[address] [address] Ultrasound Report Signed Patient: Naa Pedersen EMR#: [id number] : 6Acct:[id number] Age/Sex: 67 / FADM Date: 10/07/23 Loc: HO.US Attending Dr: Moira Edouard NP Ordering Physician: Moira Edouard NP Date of Service: 10/07/23 Procedure(s): US pelvic and transvaginal Accession Number(s): [id number] cc: Moira Edouard NP; Renan Cabral MD [...] in OV> 10/08/23 1659 DD/ 1146 TD/TT: Receptionist/Telephone Operator: us Moira Edouard NURSE EXAMINER IMG US PROCEDURES Final Result documented in this encounter Visit Diagnoses Diagnosis Right lower quadrant abdominal pain- Primary documented in this encounter Additional Health Concerns Assessment Noted Time PHQ-9 Depression Total Score: 0 12/02/19 10:15 AM EST documented as of this encounter Care Teams Heel Reducer Relationship Specialty Start Date End Date Renan Lawson MD [address] [place] [address] PCP - General Internal Medicine 12/10/21 Edilberto Barahona, KyD [address] [place] [address] Pharmacist Internal Medicine 07/14/23 10/24/24 Richelle Albarado PharmD [address] [place] [phone] Pharmacist Internal Medicine 10/25/24 documented as of this encounter
--- OUTSIDE RECORDS SUMMARY | 2025-02-24 14:11 | XMS_ITS | Encounter Summary ---
Author Organization [employer] [facility] Address [address] [place] [address] Care Team Providers Care Safety Compliance Specialist Name Role Phone Renan Lawson MD Primary Care Provide r Edilberto Barahona PharmD Unavailable [phone] Richelle Albarado PharmD Unavailable [phone] Reason for Visit * Reason Comments Med Refill Encounter Details Date Type Department Care Team ([facility] st Contact Info) Description 01/15/2024 Refill [facility] MED[facility]INE [address] [place], [place] [phone] Shantell Will MD [address] [place], [place] [phone] Fibromyalgia Social History Tobacco Use Types Packs/Day [...] 03/23/2025 1:15 PM EDT Office Visit [facility] [address] [place] [address] Renan Lawson MD [address] [place] [address] documented as of this encounter Goals Goal [...] documented as of this encounter Care Teams Safety Compliance Specialist Relationship Specialty Start Date End Date Renan Lawson MD [address] [place] [address] PCP - General Internal Medicine 12/10/21 Edilberto Barahona PharmD [address] [place] [address] Pharmacist Internal Medicine 07/14/23 10/24/24 Richelle Albarado PharmD [address] [place] [address] Pharmacist Internal Medicine 10/25/24 documented as of this encounter
--- OUTSIDE RECORDS SUMMARY | 2025-02-24 14:11 | XMS_ITS | Encounter Summary ---
Author Organization [employer] Address [address] [place] [address] Care Team Providers Care Systems Support Officer Name Role Phone Renan Lawson MD Primary Care Provide r Edilberto Barahona PharmD Unavailable [phone] Richelle Albarado PharmD Unavailable [phone] Reason for Visit * Reason Onset Date Comments Appointment Request 08/26/2023 Encounter Details Date Type Department Care Team ([facility] st Contact Info) Description 08/26/2023 Telephone [facility] [address] [place], [place] [phone] Renan Lawson MD [address] [place], [place] [phone] Appointment Request Social History Tobacco Use Types [...] Visit [facility] [address] [place] [address] Renan Lawson MD [address] [place] [address] documented as of this encounter Goals Goal [...] documented as of this encounter Care Teams Systems Support Officer Relationship Specialty Start Date End Date Renan Lawson MD [address] [place] [address] PCP - General Internal Medicine 12/10/21 Edilberto Barahona PharmD [address] [place] [address] Pharmacist Internal Medicine 07/14/23 10/24/24 Richelle Albarado PharmD [address] [place] [address] Pharmacist Internal Medicine 10/25/24 documented as of this encounter
--- OUTSIDE RECORDS SUMMARY | 2025-02-24 14:11 | XMS_ITS | Encounter Summary ---
Author Organization [employer] Address [address] [place] [address] Care Team Providers Care Explosives Engineer Name Role Phone Renan Lawson MD Primary Care Provide r Richelle Albarado PharmD Unavailable [phone] Reason for Visit * Reason Comments Med Refill Encounter Details Date Type Department Care Team ([facility] st Contact Info) Description 11/29/2024 Refill [facility] MED[facility]INE [address] [place] [address] Edilberto Barahona PharmD [address] [place] [address] Diabetes mellitus type 2 with neurological manifestations [...] Description 03/23/2025 1:15 PM EDT Office Visit [facility] MEDICINE [address] [place] [address] Renan Lawson MD [address] [place] [address] documented as of this encounter Goals Goal Patient Goal Type Associated Problems Recent Progress Patient-Stated? Author Blood Pressure < 140/90 Blood Pressure 144/90(2024 10:03 AM EDT) Edilberto Herrera PharmD Blood Pressure < 140/90 [...] documented as of this encounter Care Teams Explosives Engineer Relationship Specialty Start Date End Date Renan Lawson MD [address] [place] [address] PCP - General Internal Medicine 12/10/21 Richelle Albarado PharmD [address] [place] [address] Pharmacist Internal Medicine 10/25/24 documented as of this encounter
== END 2025-02-24 13:49 | disposition home or self-care (01) ==
LOC: HO.MAMMO 13:48
PROVIDERS: PCP Internal Medicine; Visit Provider Internal Medicine
DX: Z12.31 Encounter for screening mammogram for malignant neoplasm of breast (principal)
CPT/HCPCS: 77063; 77067

== ENCOUNTER 2025-03-15 13:31 | Outpatient (AMB) | payer MEDICARE, MEDICAID, SELFPAY ==
[2025-03-15 13:33] VITALS: BP 140/80; PULSE 89; BMI 34.5
--- NOTE | 2025-03-15 13:33 | A.OFFVIS_ITS ---
Vital Signs 03/15/25 13:33 Height 5 ft 6 in Weight 213 lb 13.574 oz BMI 34.5 BP 140/80 H Blood Pressure Location Lt brachial Position Sitting Pulse 89 Pulse Source Monitor Intake Visit Reasons: 6 mth f/up Senior Director Insight Required: Yes Senior Director Insight Name: LIZZY [id number] Allergies bee pollen [BEE STINGS] Allergy (Unknown, Verified 02/01/25 13:26) ANAPHYLAXIS morphine [MORPHINE] Allergy (Unknown, Verified 02/01/25 13:26) ITCHING Medication List - Last Reconciled 03/15/25 by Dileep Freeman MD albuterol sulfate 2.5 mg (3 mL) inhalation Q4H PRN 30 days albuterol sulfate 90 mcg/actuation (Ventolin HFA) 2 puffs PO QID PRN alirocumab (Praluent Pen) 75 mg subcut Q2W amitriptyline 200 mg PO BEDTIME amlodipine 10 mg PO DAILY 90 days ascorbic acid (vitamin C) 1 g PO DAILY 90 days aspirin 81 mg PO DAILY atorvastatin 80 mg PO DAILY blood sugar diagnostic (FreeStyle Lite Strips) Test four times a day or as directed. blood-glucose meter (FreeStyle Lite Meter kit) As Directed uyfpirberk-mrqhbgoaoytfh-xkhw 50-325-40 mg 1 tab PO TID PRN cetirizine 10 mg PO BEDTIME cholecalciferol (vitamin D3) 50 mcg PO DAILY clonazepam 1 mg PO BID PRN cyanocobalamin (vitamin B-12) 1,000 mcg PO DAILY cyclobenzaprine 5 mg PO TID PRN 7 days dulaglutide (Trulicity) mg subcut dulaglutide (Trulicity) mg subcut epinephrine 3 mg IM DIRECTED estradiol 0.01%(0.1mg/gram) (Estrace) 1 g vaginal 3XW 90 days ezetimibe (Zetia) 10 mg PO DAILY 90 days fluticasone propionate 50 mcg/actuation 2 sprays intranasal DAILY insulin glargine (Lantus Solostar U-100 Insulin) 40 units (0.4 mL) subcut DAILY insulin lispro (Humalog KwikPen (U-100) Insulin) 1 sliding scale dose subcut QIDACHS lancets (FreeStyle Lancets) Test four times a day or as directed. lancets (TRUEplus Lancets) As directed lisinopril 2.5 mg PO DAILY metformin ER 1,000 mg PO QAM methenamine hippurate 1 g PO DAILY 90 days metoclopramide HCl 5 mg PO TID mirtazapine 45 mg PO BEDTIME nebulizers As directed nitrofurantoin macrocrystal 100 mg PO BID 14 days omeprazole 40 mg PO BID pen needle, diabetic Use four times a day or as directed. pregabalin 200 mg PO BID sennosides (senna) 17.2 mg (2 x 8.6 mg) PO BEDTIME 30 days simethicone 180 mg PO QID PRN topiramate 100 mg PO BID trazodone 100 mg PO BEDTIME venlafaxine ER 37.5 mg PO DAILY HPI Comments Details: Naa returns for follow-up regarding coronary disease. In the past, due to chest pains, she has undergone stress testing, coronary CTA as well as cardiac catheterization. 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 Multiple cardiovascular risk factors. She gets some random episodes of chest tightness that could be anginal versus something noncardiac. Otherwise, more or less the same. No new issues. [facility] Medical History Periumbilical abdominal pain EDWIN on CPAP Chronic restrictive lung disease Chronic allergic rhinitis Asthma Other and unspecified hyperlipidemia Essential hypertension Type 2 diabetes mellitus with unspecified complications Atherosclerotic cardiovascular disease Surgical History History of esophagogastroduodenoscopy (EGD) Hx of colonoscopy Family History Mother HTN (hypertension) Heart disease Asthma Maternal Aunt Breast cancer Maternal Aunt Tumor Maternal Aunt Cancer Social History Household Members: Spouse and Family Household Members Other:: 4 household members Housing: Apartment Do you presently have visiting nurse or other home services: No Alcohol intake: never Patient Tobacco Use Status: Never used Tobacco service: No Review of Systems Const Denies weakness ENT Denies dizziness Card Denies chest pain, Denies chest pain with activity, Denies syncope, Denies rapid heart rate, Denies pedal edema, Denies edema, Denies leg edema, Denies lightheadedness, Denies palpitations, Denies dyspnea, Denies dyspnea on exertion and Denies orthopnea Resp Denies cough, Denies dyspnea and Denies dyspnea on exertion GI Denies hematochezia and Denies change in stool character Musc Denies abnormal gait, Denies muscle cramps, Denies muscle weakness, Denies numbness, Denies radiating pain into limb and Denies tingling Neuro Denies abnormal gait, Denies dizziness, Denies syncope, Denies numbness, Denies tingling and Denies weakness Endo Denies palpitations Physical Exam Vital Signs: Last Vital Signs Pulse 89 03/15/25 13:33 BP 140/80 H 03/15/25 13:33 BMI result Body Mass Index 34.5 Const General: comfortable and no acute distress Orientation/consciousness: patient oriented x3 HEENT Other: Unremarkable Head: Yes normal to inspection Neck Neck: Yes normal visual inspection Chest Chest palpation & inspection: normal inspection of the chest Resp Auscultation: clear to auscultation bilaterally Cardio Palpation: normal PMI Heart sounds: S1 normal heart sound present, S2 normal heart sound present, no gallops, no murmurs and no rubs GI Palpation (GI): Soft to palpation Back/Spine/Pelvis Other: unremarkable Skin General skin exam: no rashes or lesions noted Neuro General: patient oriented x3 Extrem General: Yes normal to inspection Psych Mental Status: mental status grossly normal Assessment & Plan Assessment & Plan (1) Atherosclerotic cardiovascular disease: Code(s): I25.10 - Atherosclerotic heart disease of [place] coronary artery without angina pectoris Category: Medical Plan: Myocardial perfusion imaging study in the past showed mild intensity apical ischemia. Coronary CTA had shown moderate calcification the LAD and circumflex; luminal patency cannot be assessed adequately but there was no occlusion. Cardiac lzgyaxcthkcocpl-[id number]-[id number] disease in the LAD and circumflex. Ostial RCA with approximately 40% stenosis. Nothing hemodynamically significant. Aggressive risk factor modification. Continue aspirin and statins. Still not taking Praluent and she states pharmacy has not dispensed. We will need to check on that. Due to history of EpiPen use, off metoprolol. (2) RBBB: Code(s): I45.10 - Unspecified right bundle-branch block Category: Medical Plan: Can follow for any progressive conduction system disease. (3) Type 2 diabetes mellitus with unspecified complications: Code(s): E11.8 - Type 2 diabetes mellitus with unspecified complications Category: Medical Plan: Listed to be on Trulicity, insulin, metformin. Previously, poor diabetes control. Most recent hemoglobin A1c is 8.3%. Does not ideal. (4) Essential hypertension: Code(s): I10 - Essential (primary) hypertension Category: Medical Plan: Continue amlodipine. We can go up on the lisinopril dosing. Check labs few days after that. (5) Other and unspecified hyperlipidemia: Code(s): E78.5 - Hyperlipidemia, unspecified Category: Medical Plan: Listed to be on statins, Zetia, Praluent. However, patient states she does not take Praluent. We will need to contact pharmacy. (6) EDWIN on CPAP: Code(s): G47.33 - Obstructive sleep apnea (adult) (pediatric); Z99.89 - Dependence on other enabling machines and devices Category: Medical Plan Discussion Notes During the consultation, we discussed the patient's challenges with controlling her hypertension and hypercholesterolemia. I elaborated on adjusting the lisinopril dosage and maintaining the current antihypertensive and cholesterol regimes. We also reviewed the potential benefits and risks of continuing current medications. I explained the rationale behind the increased lisinopril dosage considering the pressure control requirements. For her chest tightness, we agreed on issuing fresh nitroglycerin tablets. Follow-up blood tests in two weeks post-medication adjustment will be crucial to gauge our treatment plan's efficacy. I will see the patient in six months to discuss progress, ensuring her symptoms or medication tolerance is adequate. Patient was informed and verbally consented to the use of an ambient scribe for clinic note documentation during this visit. Orders: Orders Basic Metabolic Panel 2 Weeks I25.10 - Atherosclerotic heart disease of [place] coronary artery without angina pectoris Medications: New nitroglycerin do not exceed 3 doses per episode 0.4 mg sublingual Q5M PRN 30 tabs 5RF chest pain R07.2 - Precordial pain lisinopril 10 mg PO DAILY 90 tabs 3RF Patient Instructions: - Increase lisinopril to 10 mg daily. - Continue taking amlodipine as prescribed. - Take atorvastatin for cholesterol control, as directed. - Use new nitroglycerin tablets for chest tightness, as needed. - Get blood work done in two weeks after medication changes. - Monitor for any changes or worsening of symptoms and report immediately. - Follow up with me in six months for a review of your condition and medication effectiveness. Coding Level of Care Code Est Pt Level 4 (54067) Complex EM visit Add On G2211 Diagnoses Atherosclerotic cardiovascular disease I25.10 RBBB I45.10 Type 2 diabetes mellitus with unspecified complications E11.8 Essential hypertension I10 Other and unspecified hyperlipidemia E78.5 EDWIN on CPAP G47.33; Z99.89
--- OUTSIDE RECORDS SUMMARY | 2025-03-15 14:49 | XMS_ITS | Encounter Summary ---
Author Organization [employer] Address [address] [place] [address] Care Team Providers Care Financial Analyst Accountant Name Role Phone Renan Lawson MD Primary Care Provide r Edilberto Barahona PharmD Unavailable [phone] Richelle Albarado PharmD Unavailable [phone] Reason for Visit * Reason Onset Date Comments Reschedule 05/20/2023 Encounter Details Date Type Department Care Team ([facility] st Contact Info) Description 05/20/2023 Telephone [facility] [address] [place], [place] [phone] Renan Lawson MD [address] [place], [place] [phone] Reschedule Social History Tobacco Use Types Packs/Day [...] knee injection appointment. Please contact pt at [phone] (Belgian speaker) documented in this encounter Plan of Treatment Upcoming Encounters Date Type Department Care Team (Late st Contact Info) Description 05/11/2025 1:00 PM EDT Office Visit [facility] MEDICINE [address] [place], [place] [phone] Renan Lawson MD [address] [place], [place] documented as of this encounter Goals Goal [...] documented as of this encounter Care Teams Financial Analyst Accountant Relationship Specialty Start Date End Date Renan Lawson MD [address] [place] [address] [phone] PCP - General Internal Medicine 12/10/21 Edilberto Barahona PharmD [address] [place] [address] [phone] Pharmacist Internal Medicine 07/14/23 10/24/24 Richelle Albarado PharmD [address] [place] [address] [phone] Pharmacist Internal Medicine 10/25/24 documented as of this encounter
--- OUTSIDE RECORDS SUMMARY | 2025-03-15 14:49 | XMS_ITS | Encounter Summary ---
Author Organization [employer] [facility] Address [address] [place] [address] Care Team Providers Care Director Of Global Talent Name Role Phone Renan Lawson MD Primary Care Provide r Edilberto Barahona PharmD Unavailable [phone] Richelle Albarado PharmD Unavailable [phone] Encounter Details Date Type Department [facility] Team ([facility] Contact Info) Description 11/14/2022 Telephone [facility] MEDICINE [address] [place], [place] [phone] Renan Lawson MD [address] [place], [place] [phone] Social History Tobacco Use Types Packs/Day Years [...] Upcoming Encounters Date Type Department Care Team ([facility] Contact Info) Description 05/11/2025 1:00 PM EDT Office Visit [facility] MEDICINE [address] [place], [place] [phone] Renan Lawson MD [address] [place] [address] documented as of this encounter Visit Diagnoses Not on filedocumented in this encounter Care Teams Director Of Global Talent Relationship Specialty Start Date End Date Renan Lawson MD [address] [place] [id number] PCP - General Internal Medicine 12/10/21 Edilberto Barahona, KyD [address] [place] [address] Pharmacist Internal Medicine 07/14/23 10/24/24 Richelle Albarado, KyD [address] [place] [phone] Pharmacist Internal Medicine 10/25/24 documented as of this encounter
--- OUTSIDE RECORDS SUMMARY | 2025-03-15 14:49 | XMS_ITS | Encounter Summary ---
Author Organization [employer] Address [address] [place] [address] Care Team Providers Care Shoe Caser Name Role Phone Renan Lawson MD Primary Care Provide r Richelle Albarado PharmD Unavailable [phone] Reason for Visit * Reason Onset Date Comments Medication Question 03/15/2025 Encounter Details Date Type Department Care Team ([facility] Contact Info) Description 03/15/2025 Telephone [facility] MEDICINE [address] [place], [place] [phone] Renan Lawson MD [address] [place], [place] [phone] Medication Question Social History Tobacco Use Types Packs/Day Years [...] encounter Miscellaneous Notes * Telephone Encounter - Stefany Soto - 03/15/2025 2:00 PM EDT Tc from [facility] with [facility] requesting new script for continuous glucose monitor and recent chart notes. F. [phone] P. [phone] documented in this encounter Plan of Treatment Upcoming Encounters Date Type Department Care Team (Late st Contact Info) Description 05/11/2025 1:00 PM EDT Office Visit [facility] MEDICINE [address] [place] [address] Renan Lawson MD [address] [place] [address] documented as of this encounter Goals Goal [...] documented as of this encounter Care Teams Shoe Caser Relationship Specialty Start Date End Date Renan Lawson MD [address] [place] [address] PCP - General Internal Medicine 12/10/21 Richelle Albarado PharmD [address] [place] [address] Pharmacist Internal Medicine 10/25/24 documented as of this encounter
--- OUTSIDE RECORDS SUMMARY | 2025-03-15 14:49 | XMS_ITS ---
Author Organization [facility] Address [address] [place] [address] Care Team Providers Care Senior It Assistant Name Role Phone Deandre Aparicio MD, Renan Primary Care Provide r Eric Wyman [phone] REASON FOR VISIT Pt no show Encounters Encounter Location Date Provider Diagnosis [facility] [address] [place] [address] 01/28/2024 Eric Emmanuel Plan Of Treatment No Information Progress Notes * BOWLES COLEDOB: 6 (68 yo F)Acc No.[id number]:01/28/2024 Patient:?COLE BOWLES :1955???Age:68 Y???Sex:Female Address:[address] [place] [address] [address] , [place] * true * Date:? Generated for Rebecca valdez/Marco/eTransmitting on:?03/15/2025 02:49 PM EDT
--- OUTSIDE RECORDS SUMMARY | 2025-03-15 14:49 | XMS_ITS | Encounter Summary ---
Author Organization [employer] Address [address] [place] [address] Care Team Providers Care Orthopedic Physician Assistant Name Role Phone Renan Lawson MD Primary Care Provide r Edilberto Barahona PharmD Unavailable [phone] Richelle Albarado PharmD Unavailable [phone] Reason for Visit * Reason Comments Med Refill Encounter Details Date Type Department Care Team ([facility] st Contact Info) Description 02/09/2024 Refill [facility] MEDICINE [address] [place], [place] [phone] Renan Lawson MD [address] [place], [place] [phone] Fibromyalgia Social History Tobacco Use Types Packs/Day [...] Description 05/11/2025 1:00 PM EDT Office Visit [facility] MEDICINE [address] [place] [address] Renan Lawson MD [address] [place] [address] documented as of this encounter Goals Goal [...] documented as of this encounter Care Teams Orthopedic Physician Assistant Relationship Specialty Start Date End Date Renan Lawson MD [address] [place] [address] PCP - General Internal Medicine 12/10/21 Edilberto Barahona PharmD [address] [place] [address] Pharmacist Internal Medicine 07/14/23 10/24/24 Richelle Albarado PharmD [address] [place] [address] Pharmacist Internal Medicine 10/25/24 documented as of this encounter
--- OUTSIDE RECORDS SUMMARY | 2025-03-15 14:49 | XMS_ITS | Encounter Summary ---
Author Organization [employer] Address [address] [place] [address] Care Team Providers Care Nursery Helper Name Role Phone Renan Lawson MD Primary Care Provide r Edilberto Barahona PharmD Unavailable [phone] Richelle Albarado PharmD Unavailable [phone] Reason for Visit * Reason Onset Date Comments Appointment Request 08/26/2023 Encounter Details Date Type Department Care Team ([facility] Contact Info) Description 08/26/2023 Telephone [facility] MEDICINE [address] [place], [place] [phone] Renan Lawson MD [address] [place], [place] [phone] Appointment Request Social History Tobacco Use Types [...] Description 05/11/2025 1:00 PM EDT Office Visit [facility] MEDICINE [address] [place] [address] Renan Lawson MD [address] [place] [address] documented as of this encounter Goals Goal [...] documented as of this encounter Care Teams Nursery Helper Relationship Specialty Start Date End Date Renan Lawson MD [address] [place] [address] PCP - General Internal Medicine 12/10/21 Edilberto Barahona, Toni [address] [place] [phone] Pharmacist Internal Medicine 07/14/23 10/24/24 Richelle Albarado PharmD [address] [place] [address] Pharmacist Internal Medicine 10/25/24 documented as of this encounter
--- OUTSIDE RECORDS SUMMARY | 2025-03-15 14:49 | XMS_ITS | Clinical Summary ---
Author Organization [employer] Address [address] [facility] 7[address] [place] [address] Care Team Providers Care Rn Imcu Name Role Phone Renan Lawson MD Primary Care Provide r Richelle Albarado PharmD Unavailable [phone] Allergies Active Allergy Reactions Criticality Noted Date [...] PSULA TODOS LOS D EN LA ALONA WALESKA Active metoclopramide (Reglan) 5 MG tablet Take 5 mg by mouth 3 times daily. 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 [facility] health care 12/02/2022 Overview (09/07/2023): Continues to [...] finding. Pt was seen by her Automation Qa Lead Dr Freeman and is currently wearing an [...] Zetia and Praluent. Last seen by Automation Qa Lead Dr Freeman 07/2024 Assessment & Plan (09/15/2023 [...] Patient under the care of Ben Carson Director Oncology, last seen 07/29/2024 Currently on Ventolin , uses albuterol nebulizarions as well. Dr Carson stopped her other inhalers Assessment & Plan (09/15/2023 3:23 PM EST): Patient under the care of Ben Carson Director Oncology, last seen April Currently on Ventolin and Breztri Aerosphere , uses albuterol nebulizarions as well Assessment & Plan (12/02/2022 8:52 AM EST): Patient under the care of Ben Carson Director Oncology, last seen January 2022 Currently on Ventolin [...] PM EST): Pt under the care of Operations Supervisor Chemical Cleaning at [facility] , last seen 10/2023 Currently on a regimen of Dexilant 60 mg po daily and Omeprazole 40 mg po daily Assessment & Plan (12/02/2022 8:52 AM EST): Pt under the care of Operations Supervisor Chemical Cleaning at [facility] Currently [...] (05/04/2023 3:40 PM EDT): - Freestyle Richard [place] and Sensor Ordered - A1c is not [...] found on MRI of lower back at [facility] in 2008, unchanged 2009. Sl enlarged [...] being followed by Dr. Jarod Angelo ([address] [facility] ). She is now under the care [...] is being followed by Dr. Jarod Angelo ([address] ). She is now under [...] request records from most recent [facility] pt is being followed by Dr. Jarod Angelo ([address] ). Depressive disorder 11/09/1959 Assessment & Plan (12/23/2022 2:42 PM EST): Patient under the care of psychiatrist at [facility] Currently on a regimen of: Clonazepam 0.5 mg po BID PRN, Trazodone 100 mg po qhs and Mirtazapine 45 mg po at bedtime Pt reports she has agoraphobia and cannot attend Jury Duty She is requesting a letter that due to the fact that she does not speak swedish and has a psychiatric condition that causes her extreme anxiety when she is surrounded by people, she cannot attend Jury duty Assessment & Plan (12/02/2022 8:44 AM EST): Patient under the care of psychiatrist at [facility] Currently on a regimen of: Clonazepam 0.5 [...] Encounters Date Type Department Care Team Description 03/15/2025 Telephone [facility] [place] [address] Renan Lawson MD Medication Question 02/28/2025 Refill [facility] [address] [place] [address] Renan Lawson MD Fibromyalgia 02/21/2025 Refill [facility] [address] [place] [address] Renan Lawson MD Diabetes mellitus type 2 with neurological manifestations ([facility]/HCC) 02/03/2025 Telephone [facility] [address] [place] [phone] Renan Lawson MD Results 02/01/2025 Orders Only GENERIC EXTERNAL DATA DEPARTMENT Provider, Generic External Data 01/30/2025 Telephone [facility] [address] [place] [phone] Britni Brink, MILES Paperwork/Forms 01/25/2025 Refill [facility] [address] [place] [address] Renan Lawson MD Fibromyalgia 01/23/2025 Travel 01/23/2025 Refill [facility] [address] [place] [phone] Renan Lawson MD Diabetes mellitus type 2 with neurological manifestations ([facility]/HCC) 01/18/[address] [address] Renan Lawson MD Chart Prep 01/18/2025 Patient Outreach [address] [address] Renan Lawson MD Care Coordination (CH[facility] outreach for SDOH food needs-referral completed /) 01/18/2025 Patient Outreach [facility] [address] [place] [phone] Renan Lawson MD Pre-visit Planning (SDOH Screening positive and Tobacco screening negative) 01/12/2025 Orders Only GENERIC EXTERNAL DATA DEPARTMENT Provider, Generic External Data 12/29/2024 Refill [facility] [address] [place] [address] Renan Lawson MD Fibromyalgia 12/28/2024 Refill [facility] [address] [place], [place] [phone] Renan Lawson MD 12/27/2024 Refill [facility] [address] [place], [place] [phone] Renan Lawson MD Primary hypertension; Diabetes mellitus type 2 with neurological manifestations ([facility]/HCC); Type 2 diabetes mellitus without complication, without long-term current use of insulin ([facility]) from Last 3 Months Immunizations Name Administration [...] Description 05/11/2025 1:00 PM EDT Office Visit [facility] [address] [place] [address] Renan Lawson MD [address] [place] [address] Health Maintenance Due Date Last Done Comments CT Colonography 1955 Colonoscopy 1955 Colorectal Cancer Screening 1955 FIT DNA/Cologuard 1955 FIT 1955 FOBT 1955 Sigmoidoscopy 1955 Diabetes: Foot Exam 1965 RSV Patients and Patients Aged 60 years or older (1 - Risk 60-74 years 1-dose series) 2015 Diabetes: Urine Protein Screening 12/19/2022 12/19/2021 Depression Screening 12/29/2024 12/29/2023, 12/29/19 24 Diabetes: Hemoglobin A1C 04/14/2025 03 025, 09/09/2024, 07/07/2024, Additional history exists Hepatitis B Vaccines (3 of 3 - 19+ 3-dose series) 04/24/2025 01/23/2025, 10/24/2024 Alcohol/Substance Use Screening 09/29/2025 09/29/2024 Tobacco Screening 09/29/2025 09/29/2024 Eye Exam 12/18/2025 12/18/2023 Lipid Panel 01/12/2026 01/12/2025, 07/10, 05/19/2023, Additional history exists SDOH Screening 01/18/2026 01/18/2025 Mammogram 02/24/2026 02/24/2025, 02/07, 03/14/2022 DTaP/Tdap/Td Vaccines (3 - Td or Tdap) [...] Procedure Name Priority Date/Time Associated Diagnosis Comments BI MAMMOGRAM SCREENING TOMOSYNTHESIS BILATERAL Routine 02/24/2025 1:53 PM EDT CULTURE, URINE, ROUTINE Routine 02/02/20 25 12:59 PM EDT MR ABDOMEN W AND [...] IMMUNOGLOBULIN G Routine 01/12/2025 2:04 PM EST [id number] QN Routine 2:04 PM EST CERULOPLASMIN Routine [...] EST CBC Routine 01/12/2025 2:04 PM EST ALBUMIN, RANDOM URINE W/CREATININE Routine 12/19/2021 8:51 AM EST from Last 3 Months or Most Recently Relevant to Health Maintenance Results * BI Mammogram Screening Tomosynthesis Bilateral (02/24/2025 1:53 PM EDT) Anatomical Region Laterality Modality Breast Bilateral Mammography 02/24/2025 1:53 PM EDT Narrative 03/05/2025 9:42 AM EDT ? [facility] ? [address] ?[place] [address] ?[phone] ? Mammography Report ? Signed ? Patient: Pedersen,Christianne ?MR#: [id number] ?? [id number] ? : 1955 ?Acct:[id number] ? Age/Sex: 69 / F ?ADM Date: 02/24/25 ? Loc: HO.MAMMO ? Attending Dr: Renan Cabral MD ? Ordering Physician: Renan Cabral MD ?Resu ?? lts: 1Negative ? Date of Service: 02/24/25 ?Follow Up: 1 Year From Orig ?? inal Mammogram ? Procedure(s): MM tomosynthesis screening BI ?? Accession Number(s): [id number] ? cc: Renan Cabral MD ? EXAMINATION: ?? MM SCREENING DIGITAL BREAST TOMOSYNTHESIS, BILATERAL ? CLINICAL INFORMATION: ? Screening. Asymptomatic. ? COMPARISON: ?? Mammography: Comparison is made with available priors ? TECHNIQUE: ?? Digital breast mammography with tomosynthesis is performed in both the ?? craniocaudal and mediolateral oblique views along with computer-aided ?? detection (CAD). ? FINDINGS: ?? There are scattered areas of fibroglandular density (ACR BI-RADS breast ?? composition Category b). ? There are no significant masses, abnormal calcifications, or other ?? abnormalities. ? MM/MM tomosynthesis screening BI ?? IMPRESSION: ?? No mammographic evidence of malignancy. ? ASSESSMENT: ? BI-RADS BI-RADS 1 - Negative ? RECOMMENDATION: ?? Routine annual mammography screening. ? 1 year F/U ? This examination should not preclude the clinical evaluation of a ?? suspicious palpable abnormality. ? This patient's information was entered into a reminder system with a ?? target due date for their next mammogram. ? Electronically signed by: ??Poppy Mendes DO ??03/05/2025 09:40 AM EDT ?? RP ? Dictated By: ?Poppy Mendes DO ? Signed By: ?<Electronically signed by Poppy Mendes, DO in OV> ? 03/05/25 0940 ? DD/ 1353 ? TD/TT: 02/24/25 1403 ? Cpa Tax: ? Procedure Note Doncabrerainterpreter, Image - 03/05/2025 [facility] [address] [place] [address] Mammography Report Signed Patient: Naa Pedersen EMR#: [id number] : 6Acct:[id number] Age/Sex: 69 / FADM Date: 02/24/25 Loc: KYLE.GRABIELO Attending Dr: Renan Cabral MD Ordering Physician: Renan Cabral MDResu lts: 1Negative Date of Service: 02/24/25Follow Up: 1 Year From Orig inal Mammogram Procedure(s): MM tomosynthesis screening BI Accession Number(s): [id number] cc: Renan Cabral MD EXAMINATION: MM SCREENING DIGITAL BREAST TOMOSYNTHESIS, BILATERAL CLINICAL INFORMATION: Screening. Asymptomatic. COMPARISON: Mammography: Comparison is made with available priors TECHNIQUE: Digital breast mammography with tomosynthesis is performed in both the craniocaudal and mediolateral oblique views along with computer-aided detection (CAD). FINDINGS: There are scattered areas of fibroglandular density (ACR BI-RADS breast composition Category b). There are no significant masses, abnormal calcifications, or other abnormalities. MM/MM tomosynthesis screening BI IMPRESSION: No mammographic evidence of malignancy. ASSESSMENT: BI-RADS BI-RADS 1 - Negative RECOMMENDATION: Routine annual mammography screening. 1 year F/U This examination should not preclude the clinical evaluation of a suspicious palpable abnormality. This patient's information was entered into a reminder system with a target due date for their next mammogram. Electronically signed by: Poppy Mendes DO 03/05/2025 09:40 AM EDT RP Dictated By: Poppy Mendes DO Signed By: <Electronically signed by Poppy Mendes DO in OV> 03/05/25 0940 DD/ 1353 TD/TT: 02/24/25 1403 Cpa Tax: Renan Aparicio MD IMG BI PROCEDURES Robert genia Result - Final * Culture, Urine, Routine (02/01/2025 12:59 PM EDT) Urine Urine specimen obtained by clean catch procedure / Unknown 02/01/2025 12:59 PM EDT 02/01/2025 4:37 PM EDT Comment:[facility] - 02/03/2025 7:43 AM EDT Escherichia coli Quant > 100,000 cfu/mL Escherichia coli: Ampicillin 8(S) Escherichia coli: Cefazolin (Urine) <=1(S) Escherichia coli: Cefepime <=0.12(S) Escherichia coli: Ceftriaxone <=0.25(S) Escherichia coli: Ciprofloxacin <=0.06(S) Escherichia coli: Gentamicin <=1(S) Escherichia coli: Nitrofurantoin <=16(S) Escherichia coli: Trimethoprim/Sulfamethoxazole <=20(S) Specimen Source: Urine clean catch Generic External Data Provider LAB MICROBIOLOGY - GENERAL ORDERABLES Final Result [facility] [address] [place] [phone] * MR Abdomen w/ and w/o Contrast (01/22/2025 3:49 PM EDT) Anatomical Region Laterality Modality Abdomen Magnetic Resonan ce 01/22/2025 3:49 PM EDT Narrative 01/23/2025 7:09 AM EDT ? [facility] ?[address] ?[place] [address] ? Magnetic Resonance Report ? Signed ? Patient: Pedersen,Christianne ?MR#: [id number] ?? [id number] ? : 1955 ?Acct:[id number] ? Age/Sex: 69 / F ?ADM Date: 01/22/25 ? Loc: HO.MRI ? Attending Dr: Jennifer Conn MD ? Ordering Physician: Jennifer Conn MD ?? Date of Service: 01/22/25 ?? Procedure(s): MR abdomen wo/w con ?? Accession Number(s): [id number] ? cc: Renan Cabral MD; Jennifer Conn [...] ??Eric Cooper MD ??01/23/2025 07:06 AM EDT ? Dictated By: ?Eric Cooper MD ? Signed By: ?<Electronically signed by Eric Cooper MD in OV> ?01/23/25 0706 ? DD/ 1549 ? TD/TT: 01/22/25 1612 ? Cpa Tax: ? Procedure Note Dontwilater, Image - 01/23/2025 [place] [address] Magnetic Resonance Report Signed Patient: Naa Pedersen EMR#: [id number] : 6Acct:[id number] Age/Sex: 69 / FADM Date: 01/22/25 Loc: HO.MRI Attending Dr: Jennifer Conn MD Ordering Physician: Jennifer Conn MD Date of Service: 01/22/25 Procedure(s): MR abdomen wo/w con Accession Number(s): [id number] cc: Renan Cabral MD; Jennifer Conn MD [...] Eric Cooper MD 01/23/2025 07:06 AM EDT RP Dictated By: Eric Cooper MD Signed By: <Electronically signed by Eric Cooper MD in OV> 01/23/25 0706 DD/ 1549 TD/TT: 01/22/25 1612 Cpa Tax: [facility] External Provider IMG MRI PROCEDURES Final Result * Hepatitis C Ab (01/12/2025 2:04 PM EST) Pathologist [facility] Hepatitis C Antibody Nonreactive Nonreactive [facility] Comment:Antibodies to HCV no t detected; does not exclude early acuteHCV infection. 01/12/2025 2:04 PM EST 01/12/2025 2:04 PM EST Generic External Data Provider LAB BLOOD ORDERAB LES Final Result [facility] [address] [place] [phone] * HCV RNA BY PCR, QN RFX MADDISON (01/12/2025 2:04 PM EST) Pathologist [facility] HCV RNA PCR QN <15 NOT DETECTED NOT DETECTED IU/mL [facility] HCV RNA PCR QN <1.18 NOT DETECTED NOT DETECTED Log IU/mL [facility] HCV RNA COMMENT SEE NOTE [facility] Comment:For additional infor reina, please refer tohttp://education.SocialVolt/faq/WJE61t6(This link is being provided for informational/Educational purposes only.)THIS TEST WAS PERFORMED AT:[facility] [address] [phone] SNOWDEN MD HCV RNA GENOTYPE,LIPA TNP [facility] Comment:Test not indicated. 01/12/2025 2:04 PM EST 01/12/2025 2:04 PM EST us Generic External Data Provider LAB BLOOD ORDERAB LES Final Result [facility] [address] [place] [phone] * Drug Monitoring, Phosphatidylethanol (PEth), Blood (01/12/2025 2:04 PM EST) Phosphatidylethanol, Blood NEGATIVE [facility] Comment:REFERENCE RANGE: <20 ng/mLTHIS TEST PERFORMED AT:[facility] [place] [id number] [place] [phone] DIRECTOR: HUSSEIN COREAS MD, PHD formerly [facility] 16:0/18:2 (PLPEth) NEGATIVE [facility] Comment:REFERENCE RANGE: <20 ng/mLTHIS TEST PERFORMED AT:[facility] [place] [id number] [place] [phone] DIRECTOR: HUSSEIN COREAS MD, PHD formerly [facility] Comments SEE NOTE [facility] Comment:This drug testing is for medical treatment only. Analysiswas performed as non-forensic testing and these resultsshould be used only by healthcare providers to renderdiagnosis or treatment, or to monitor progress of medicalconditions.LDT Notes:Confirmation tests were developed and their analyticalperformance characteristics have been determined by [facility]. It has not been cleared or approved by the FDA.This assay has been validated pursuant to the CLIAregulations and is used for clinical purposes.Healthcare Providers needing Interpretation assistance,please contact us at [phone] ( ) M-F,8am to 10pm ESTTHIS TEST PERFORMED AT:[facility] [place] [phone] DIRECTOR: JESUS SNOWDEN MD 01/12/2025 2:04 PM EST 01/12/2025 2:04 PM EST Generic External Data Provider LAB BLOOD ORDERAB LES Final Result Performing Organization Address [facility]/ZIP Co de Phone Number [facility] [address] [place] [phone] * Iron And Total Iron Binding Capacity (01/12/2025 2:04 PM EST) Iron 42 30 - 160 mcg/dL [facility] Total Iron Binding Capacity 256 228 - 428 mcg/dL [facility] Percent Iron Saturation 16 15 - 50 % [facility] Unsaturated Iron Binding 214 ug/dL [facility] 01/12/2025 2:04 PM EST 01/12/2025 2:04 PM EST us Generic External Data Provider LAB BLOOD ORDERAB LES Final Result Performing Organization Address [facility] Co de Phone Number [facility] [address] [place] [phone] * Actin (Smooth Muscle) Antibody (IgG) (01/12/2025 2:04 PM EST) Smooth Muscle Antibody <20 <20 U [facility] Comment:Reference Range: <2 0 U: Negative>or=20 U: PositiveAntibodies recognizing actin are the main componentof smooth muscle antibodies associated with auto- immune liver disease. Actin antibodies are found inapproximately 75% of patients with autoimmunehepatitis (AIH) type 1, approximately 65% of patientswith autoimmune cholangitis, approximately 30% ofpatients with primary biliary cirrhosis andapproximately 2% of healthy controls. High values areclosely correlated with AIH type 1.THIS TEST WAS PERFORMED AT:[facility] [id number] [place] [address]QCOXLNXHUSSEIN COREAS MD,PHD 01/12/2025 2:04 PM EST 01/12/2025 2:04 PM EST Generic External Data Provider LAB BLOOD ORDERAB LES Final Result Performing Organization Address [facility]/ZIP Co de Phone Number [facility] [address] [place] [phone] * Ieqvn-3-Xsshmsnefmu, Quantitative (01/12/2025 2:04 PM EST) Kvfbo-8-Gerfsdpg sin QN 172 83 - 199 mg/dL [facility] Comment:THIS TEST WAS PERFOR MED AT:[facility] [address] [address]YAMGYJESUS SNOWDEN MD 01/12/2025 2:04 PM EST 01/12/2025 2:04 PM EST Generic External Data Provider LAB BLOOD ORDERAB LES Final Result Performing Organization Address [facility]/ZIP Co de Phone Number [facility] [address] [place] [phone] * Hepatitis A Antibody, Total (01/12/2025 2:04 PM EST) Hepatitis A Antibody IgG REACTIVE Nonreactive [facility] Comment:The presence of IgG anti-HAV implies past HAV infection(recent or distant) or vaccination against HAV. 01/12/2025 2:04 PM EST 01/12/2025 2:04 PM EST us Generic External Data Provider LAB BLOOD ORDERAB LES Final Result Performing Organization Address [facility]/ZIP Co de Phone Number [facility] [address] [place] [phone] * Tissue Transglutaminase Antibody, IgA (01/12/2025 2:04 PM EST) Transglutaminase IgA <1.0 U/mL [facility] Comment:Value Interpretatio n----- <15.0 Antibody not detected> or = 15.0 Antibody detectedTHIS TEST WAS PERFORMED AT:[facility] [address] [address]LOMAPJESUS SNOWDEN MD 01/12/2025 2:04 PM EST 01/12/2025 2:04 PM EST us Generic External Data Provider LAB BLOOD ORDERAB LES Final Result Performing Organization Address [facility] Co de Phone Number [facility] [address] [place] [phone] * Ceruloplasmin (01/12/2025 2:04 PM EST) Ceruloplasmin 33 14 - 48 mg/dL [facility] Comment:THIS TEST WAS PERFOR MED AT:[facility] [address] [phone] SNOWDEN MD 01/12/2025 2:04 PM EST 01/12/2025 2:04 PM EST us Generic External Data Provider LAB BLOOD ORDERAB LES Final Result Performing Organization Address [facility] Co de Phone Number [facility] [address] [place] [phone] * Alpha-Fetoprotein, Tumor Marker (01/12/2025 2:04 PM EST) Alpha Fetoprotein 4.2 ng/mL [facility] Comment:Reference Range: <6. 1The use of AFP as a tumor marker in females is not recommended.This test was performed using the Jaky Coulterchemiluminescent method. Values obtained fromdifferent assay methods cannot be usedinterchangeably. AFP levels, regardless ofvalue, should not be interpreted as absoluteevidence of the presence or absence of disease.THIS TEST WAS PERFORMED AT:[facility] [place] [phone] SNOWDEN MD 01/12/2025 2:04 PM EST 01/12/2025 2:04 PM EST Generic External Data Provider LAB BLOOD ORDERAB LES Final Result Performing Organization Address [facility] Co vt Phone Number [facility] [address] [place] [phone] * Hepatitis B surface antigen, EIA (01/12/2025 2:04 PM EST) Pathologist [facility] Hepatitis B Surface Ag Negative Negative [facility] 01/12/2025 2:04 PM EST 01/12/2025 2:04 PM EST Generic External Data Provider LAB BLOOD ORDERAB LES Final Result Performing Organization Address [facility] Co de Phone Number [facility] [address] [place] [phone] * Hepatitis B Core Antibody, Total (01/12/2025 2:04 PM EST) Pathologist [facility] Hepatitis B Core Antibody Nonreactive Nonreactive [facility] 01/12/2025 2:04 PM EST 01/12/2025 2:04 PM EST Generic External Data Provider LAB BLOOD ORDERAB LES Final Result Performing Organization Address [facility] Co de Phone Number [facility] [address] [place] [phone] * Liver Kidney Microsomal (LKM-1) Antibody??(IgG) (01/12/2025 2:04 PM EST) Liver Kidney Microsomal (LKM-1) Antibody IgG <=20.0 <=20.0 U [facility] Comment:Reference Range: <=2 0.0 Negative [...] patients with hepatitis Cinfection.THIS TEST WAS PERFORMED AT:[facility] [place] [address]AQKCRMSHUSSEIN COREAS MD,PHD 01/12/2025 2:04 PM EST 01/12/2025 2:04 PM EST Generic External Data Provider LAB BLOOD ORDERAB LES Final Result Performing Organization Address [facility]/ZIP Co de Phone Number [facility] [address] [place] [phone] [phone] * Mitochondrial Antibody with Reflex to Titer (01/12/2025 2:04 PM EST) Mitochondrial Antibodies NEGATIVE NEGATIVE [facility] Comment:THIS TEST WAS PERFOR MED AT:[facility] [address] [phone] SNOWDEN MD Mitochondrial Ab Titer TNP [facility] 01/12/2025 2:04 PM EST 01/12/2025 2:04 PM EST Generic External Data Provider LAB BLOOD ORDERAB LES Final Result [facility] [address] [place] [phone] * HIV-1/2 Antigen and Antibodies, Fourth Generation, with Reflexes (01/12/2025 2:04 PM EST) HIV AB/AG Nonreactive Nonreactive [facility] Comment:HIV-1 p24 Ag and/or HIV-1/HIV-2 Ab not detected.A test result that is nonreactive does not exclude thepossibility of exposure to or infection with HIV-1 and/orHIV-2. Nonreactive results in this assay for individualswith prior exposure to HIV-1 and/or HIV-2 may be due toantigen and antibody levels that are below the limit ofdetection of this assay.The [employer] HIV Ag/Ab Combo assay result andsupplemental assay results should be interpreted inconjunction with the patient's clinical presentation,history and other laboratory results. If the results areinconsistent with clinical evidence, additional testing issuggested to confirm the result. 01/12/2025 2:04 PM EST 01/12/2025 2:04 PM EST us Generic External Data Provider LAB BLOOD ORDERAB LES Final Result Performing Organization Address [facility]/ZIP Co de Phone Number [facility] [address] [place] [address] [phone] * Hepatitis B Surface Antibody, Qualitative (01/12/2025 2:04 PM EST) ~Hepatitis B Surface Antibody NONREACTIVE Nonreactive [facility] Comment:Nonreactive: < 8.00 mIU/mL 01/12/2025 2:04 PM EST 01/12/2025 2:04 PM EST us Generic External Data Provider LAB BLOOD ORDERAB LES Final Result Performing Organization Address [facility]/ZIP Co de Phone Number [facility] [address] [place] [address] [phone] * Prothrombin Time-INR (01/12/2025 2:04 PM EST) Pathologist [facility] Prothrombin Time 11.4 10.9 - 12.4 SEC [facility] INTERNATIONAL NORM RATIO 1.0 0.9 - 1.1 [facility] Comment:INTERNATIONAL NORMAL IZED RATIO (INR) [...] ORDERAB LES Final Result Performing Organization Address City/State/[facility] de Phone Number [facility] [address] [place] [phone] * (ABNORMAL) CBC (01/12/2025 2:04 PM EST) [facility] White Blood Count 9.2 4.8 - 10.8 X10*3/uL [facility] Red Blood Count 4.69 4.20 - 5.50 X10*6/uL [facility] Hemoglobin 12.0 12.0 - 16.0 g/dl [facility] Hematocrit 38.5 37.0 - 47.0 % [facility] Mean Corpuscular Volume 82.1 80.0 - 98.0 fL [facility] Mean Corpuscular Hemoglobin 25.6(L) 27.0 - 33.0 pg [facility] Mean Corpuscular HGB Conc 31.2 31.0 - 35.0 g/dl [facility] Red Cell Distribution Width 13.8 11.0 - 16.0 % [facility] Platelet Count 203 160 - 400 X10*3/uL [facility] Mean Platelet Volume 9.8 9.4 - 12.3 fL [facility] NRBC Pct Auto 0.0 0.0 - 0.2 /100WBC [facility] NRBC Abs Auto 0.000 0.0 - 0.012 X10*3/uL [facility] 01/12/2025 2:04 PM EST 01/12/2025 2:04 PM EST us Generic External Data Provider LAB BLOOD ORDERAB LES Final Result [facility] [address] [place] [phone] * [place] Screen,IFA, with Reflex to Titer and Pattern (01/12/2025 2:04 PM EST) Anti Nuclear Antibody Screen NEGATIVE NEGATIVE [facility] Comment:[place] IFA is a first [...] clinicallysuspected inflammatory myopathies.AC-0: NegativeInternational Consensus on [place] Patterns(https://doi.org/10.1515/kxbq-5669-8398)For additional information, please refer tohttp://education.[employer]/faq/FZQ957(This link is being provided for informational/educational purposes only.)THIS TEST WAS PERFORMED AT:[facility] [place] [phone] SNOWDEN MD [place] Titer TNP [facility] [place] Pattern [facility] [place] TITER 2 (REF LAB) [facility] [place] Pattern 2 [facility] [place] TITER 3 [facility] [place] PATTERN 3 [facility] 01/12/2025 2:04 PM EST 01/12/2025 2:04 PM EST us Generic External Data Provider LAB BLOOD ORDERAB LES Final Result Performing Organization Address [facility]/ZIP Co de Phone Number [facility] [address] [place] [phone] * (ABNORMAL) Hemoglobin A1c (01/12/2025 2:04 PM EST) Hemoglobin A1c 8.3(H) <6.0 % [facility] Comment:Hemoglobin A1C Refer ence Range Adults: 4.8 - 6.0 % Non diabetic: < 6.0 % Goal: < 7.0 %Additional Action Suggested: > 8.0 %Note: Hemoglobin A1c results are invalid for patients with abnormal amounts of HbF. Blood transfusions may impact the HbA1c concentration in the patient sample. Estimated Average Glucose 192 mg/dL [facility] Comment:eAG = Estimated ave rage glucose which is %A1C expressed asaverage glucose, using the formula of the R4X-CkcezlqHtxztkx Glucose study (ADAG), Diabetes Care, Vol.31,#8,2007 01/12/2025 2:04 PM EST 01/12/2025 2:04 PM EST us Generic External Data Provider LAB BLOOD ORDERAB LES Final Result Performing Organization Address [facility]/ZIP Co de Phone Number [facility] [address] [place] [phone] * (ABNORMAL) Gamma Glutamyl Transferase (GGT) (01/12/2025 2:04 PM EST) Gamma Glutamyl Transpeptidase 169(H) 7 - 33 U/L [facility] 01/12/2025 2:04 PM EST 01/12/2025 2:04 PM EST us Generic External Data Provider LAB BLOOD ORDERAB LES Final Result Performing Organization Address [facility]/ZIP Co de Phone Number [facility] [address] [place] [address] [place] [phone] * (ABNORMAL) Immunoglobulin A (01/12/2025 2:04 PM EST) Immunoglobulin A 383(A) 70 - 320 mg/dL [facility] Comment:THIS TEST WAS PERFOR MED AT:[facility] [address] [phone] SNOWDEN MD 01/12/2025 2:04 PM EST 01/12/2025 2:04 PM EST us Generic External Data Provider LAB BLOOD ORDERAB LES Final Result Performing Organization Address [facility] Co de Phone Number [facility] [address] [place] [phone] * Immunoglobulin G (01/12/2025 2:04 PM EST) Immunoglobulin G 1439 600 - 1540 mg/dL [facility] Comment:THIS TEST WAS PERFOR MED AT:[facility] [address] [phone] SNOWDEN MD 01/12/2025 2:04 PM EST 01/12/2025 2:04 PM EST us Generic External Data Provider LAB BLOOD ORDERAB LES Final Result Performing Organization Address City/[facility]/ZIP Co de Phone Number [facility] [address] [place] [phone] * Ferritin (01/12/2025 2:04 PM EST) Pathologist [facility] Ferritin 35 10 - 250 ng/mL [facility] 01/12/2025 2:04 PM EST 01/12/2025 2:04 PM EST Generic External Data Provider LAB BLOOD ORDERAB LES Final Result Performing Organization Address City/[facility] Co de Phone Number [facility] [address] [place] [phone] * (ABNORMAL) Lipid Panel, Standard (01/12/2025 2:04 PM EST) Triglycerides 271(H) <150 mg/dL [facility] Comment:Desirable Triglyceri de: less than 150 mg/dLBorderline High Triglyceride 150-199 mg/dLHigh Triglyceride: 200-499 mg/dLVery High Triglyceride: greater than or equal to 5OO mg/dL Cholesterol 270(H) <200 mg/dL [facility] Comment:Desirable Cholestero l: less than 200 mg/dLBorderline High Cholesterol: 200-239 mg/dLHigh Cholesterol: greater than 239 mg/dL LDL Cholesterol Calculated 173(H) <100 mg/dL [facility] Comment:Desirable LDL: less than 100 mg/dLNear Optimal/Above Optimal LDL: 110- 129 mg/dLBorderline High LDL: 130-159 mg/dLHigh LDL: 160-189 mg/dLVery High LDL: greater than or equal to 190 mg/dL HDL Cholesterol 43 >40 mg/dL [facility] Comment:Desirable HDL: great er than 40 mg/dL Note: This HDL assay may give artificially low results in patients with liver disease. 01/12/2025 2:04 PM EST 01/12/2025 2:04 PM EST us Generic External Data Provider LAB BLOOD ORDERAB LES Final Result [facility] [address] [place] [phone] [phone] * (ABNORMAL) Comprehensive Metabolic Panel (01/12/2025 2:04 PM EST) Sodium 140 135 - 145 mmol/L [facility] Potassium 3.4 3.3 - 5.1 mmol/L [facility] Chloride 107 96 - 108 mmol/L [facility] Carbon Dioxide 22 22 - 29 mmol/L [facility] Anion Gap 14 12 - 20 [facility] Urea Nitrogen (BUN) 10 9 - 16 mg/dL [facility] Creatinine, Serum 0.77 0.5 - 1.4 mg/dL [facility] Estimated Glomerular Filt Rate >60 [facility] Comment:Chronic Kidney Disea se: Estimated GFR < 60 mL/min/1.38j0Nslbjy Kidney Disease: Estimated GFR < 15 mL/min/1.73m2 Glucose 297(H) 60 - 115 mg/dL [facility] Calcium 8.8 8.4 - 10.2 mg/dL [facility] Bilirubin, Total 0.3 0.0 - 1.0 mg/dL [facility] Aspartate Amino Transferase 41(H) 5 - 31 U/L [facility] Alanine Aminotransferase 41(H) 0 - 31 U/L [facility] Total Protein 8.0 6.5 - 8.0 g/dL [facility] Albumin Level 3.9 3.5 - 5.0 g/dL [facility] Alkaline Phosphatase 122(H) 39 - 117 U/L [facility] 01/12/2025 2:04 PM EST 01/12/2025 2:04 PM EST us Generic External Data Provider LAB BLOOD ORDERAB LES Final Result Performing Organization Address City/State/[facility] Co de Phone Number [facility] [address] [place] [phone] * ALBUMIN, RANDOM URINE W/CREATININE (12/19/2021 8:51 AM EST) Microalbumin Urine 3.1 See Note: mg/dL [facility] Comment: Reference Range: ?? Reference [...] Creatinine, Urine 108 20 - 275 mg/dL [facility] 12/19/2021 8:51 AM EST us Renan Aparicio MD LAB URINE ORDERABLES Final Result [facility] [address] [place] [address], from Last 3 Months or Most Recently Relevant to Health Maintenance Insurance [place] [address] [place] [id number] [facility] Care Teams Rn Imcu Relationship Specialty Start Date End Date Renan Lawson MD [address] [place] [address] PCP - General Internal Medicine 12/10/21 Richelle Albarado, Toni [address] [place] [address] Pharmacist Internal Medicine 10/25/24
--- OUTSIDE RECORDS SUMMARY | 2025-03-15 14:49 | XMS_ITS | Encounter Summary ---
Author Organization [employer] Address [address] [place] [address] Care Team Providers Care Foot Miter Operator Name Role Phone Renan Lawson MD Primary Care Provide r Edilberto Barahona PharmD Unavailable [phone] Richelle Albarado PharmD Unavailable [phone] Reason for Visit * Reason Comments Med Refill Encounter Details Date Type Department Care Team (Late st Contact Info) Description 01/15/2024 Refill [facility] [address] [place], [place] [phone] Shantell Will MD [address] [place], [place] [phone] Fibromyalgia Social History Tobacco Use Types Packs/Day [...] Description 05/11/2025 1:00 PM EDT Office Visit [facility] [address] [place] [address] Renan Lawson MD [address] [place] [address] documented as of this encounter Goals Goal [...] documented as of this encounter Care Teams Foot Miter Operator Relationship Specialty Start Date End Date Renan Lawson MD [address] [place] [address] PCP - General Internal Medicine 12/10/21 Edilberto Barahona PharmD [address] [place] [address] Pharmacist Internal Medicine 07/14/23 10/24/24 Richelle Albarado PharmD [address] [place] [address] Pharmacist Internal Medicine 10/25/24 documented as of this encounter
--- OUTSIDE RECORDS SUMMARY | 2025-03-15 14:49 | XMS_ITS | Encounter Summary ---
Author Organization [employer] Address [address] [place] [address] Care Team Providers Care Superintendent Logging Name Role Phone Renan Lawson MD Primary Care Provide r Edilberto Barahona PharmD Unavailable [phone] Richelle Albarado PharmD Unavailable [phone] Encounter Details Date Type Department Care Team (Late st Contact Info) Description 01/13/2023 Abstract [facility] [address] [place] [address] Renan Lawson MD [address] [place], [place] [phone] Social History Tobacco Use Types Packs/Day Years [...] Description 05/11/2025 1:00 PM EDT Office Visit [facility] [address] [place] [address] Renan Lawson MD [address] [place] [address] documented as of this encounter Visit Diagnoses Not on filedocumented in this encounter Additional Health Concerns Assessment Noted Time PHQ-9 Depression Total Score: 0 12/02/19 10:15 AM EST documented as of this encounter Care Teams Superintendent Logging Relationship Specialty Start Date End [place] [address] PCP - General Internal Medicine 12/10/21 Edilberto Barahona, KyD [address] [place] [address] Pharmacist Internal Medicine 07/14/23 10/24/24 Richelle Albarado, KyD [address] [place] [phone] Pharmacist Internal Medicine 10/25/24 documented as of this encounter
--- OUTSIDE RECORDS SUMMARY | 2025-03-15 14:49 | XMS_ITS | Encounter Summary ---
Author Organization [employer] Address [address] [facility] 7t [place] [address] Care Team Providers Care Dispute Resolution Analyst Name Role Phone Renan Lawson MD Primary Care Provide r Edilberto Barahona PharmD Unavailable [phone] Richelle Albarado PharmD Unavailable [phone] Encounter Details Date Type Department Care Team (Late Contact Info) Description 10/22/2022 Orders Only [facility] [address] [place] [address] Denise Leyva LPN Social History Tobacco Use [...] Department Care Team (Late Contact Info) Description 05/11/2025 1:00 PM EDT Office Visit [facility] [address] [place], [place] [phone] Renan Lawson MD [address] [place] [address] documented as of this encounter Visit Diagnoses Not on filedocumented in this encounter Care Teams Dispute Resolution Analyst Relationship Specialty Start Date End Date Renan Lawson MD [address] [place] [address] PCP - General Internal Medicine 12/10/21 Edilberto Barahona, KyD [address] [place] [address] Pharmacist Internal Medicine 07/14/23 10/24/24 Richelle Albarado, KyD [address] [place] [phone] Pharmacist Internal Medicine 10/25/24 documented as of this encounter
--- OUTSIDE RECORDS SUMMARY | 2025-03-15 14:49 | XMS_ITS | Encounter Summary ---
Author Organization [facility] Address [address] [facility] 7t [place] [address] Care Team Providers Care Office Nurse Practitioner Name Role Phone Renan Lawson MD Primary Care Provide r Edilberto Barahona PharmD Unavailable [phone] Richelle Albarado PharmD Unavailable [phone] Reason for Referral * Imaging (Routine) - Closed Specialty Diagnoses / Procedures Referred By Contac maicol Referred To Contact Radiology Diagnoses Right lower quadrant abdominal pain Procedures US Pelvis Transvaginal Moira Edouard FNP [address] [place] [address] Phone: tel: fax: [address] Phone: tel: fax: Referral ID Status Reason Start Date Expiration Date Visits Re quested Visits Authorized [id number] Closed 08/07/2023 08/06/2024 1 1 Encounter Details Date Type Department Care Team (Late st Contact Info) Description 08/07/2023 Orders Only [facility] [address] [place] [address] Moira Edouard FNP [address] [place] [address] Right lower quadrant abdominal pain (Primary Dx) [...] Description 05/11/2025 1:00 PM EDT Office Visit [facility] [address] [place] [address] Renan Lawsno MD [address] [place] [address] documented as of this encounter Goals Goal [...] EST Narrative 10/08/2023 5:03 PM EST ? [facility] ?[address] ?[place] [address] ? Ultrasound Report ? Signed ? Patient: Slava,Naa Baird ?MR#: [id number] ?? [id number] ? : 1955 ?Acct:[id number] ? Age/Sex: 67 / F ?ADM Date: 10/07/23 ? Loc: HO.US ? Attending Dr: Moira Edouard NP ? Ordering Physician: Moira Edouard NP ?? Date of Service: 10/07/23 ?? Procedure(s): US pelvic and transvaginal ?? Accession Number(s): [id number] ? cc: Moira Edouard NP; Renan Cabral [...] ? DD/DT: 11/29/ 1146 ? TD/TT: ? Pulley Worker: ? Procedure Note Donotuseinterpreter, Image - 10/08/[address] [address] Ultrasound Report Signed Patient: Naa Pedersen EMR#: [id number] : 6Acct:[id number] Age/Sex: 67 / FADM Date: 10/07/23 Loc: HO.US Attending Dr: Moira Edouard NP Ordering Physician: Moira Edouard NP Date of Service: 10/07/23 Procedure(s): US pelvic and transvaginal Accession Number(s): [id number] cc: Moira Edouard NP; Renan Cabral MD [...] in OV> 10/08/23 1659 DD/ 1146 TD/TT: Pulley Worker: us Moira Edouard WELT SLASHER IMG US PROCEDURES Final Result documented in this encounter Visit Diagnoses Diagnosis Right lower quadrant abdominal pain- Primary documented in this encounter Additional Health Concerns Assessment Noted Time PHQ-9 Depression Total Score: 0 01/24/20 23 10:15 AM EST documented as of this encounter Care Teams Office Nurse Practitioner Relationship Specialty Start Date End Date Renan Lawson MD [address] [place] [address] PCP - General Internal Medicine 12/10/21 Edilberto Barahona PharmD [address] [place] [address] Pharmacist Internal Medicine 07/14/23 10/24/24 Richelle Albarado PharmD [address] [place] [address] Pharmacist Internal Medicine 10/25/24 documented as of this encounter
--- OUTSIDE RECORDS SUMMARY | 2025-03-15 14:49 | XMS_ITS | Patient Health Record ---
Author Organization [facility] Address [address] [place] [address] Care Team Providers Care Metal Furniture Glazier Name Role Phone Deandre Aparicio MD, Renan Primary Care Provide r Unavailable Eric Emmanuel Unavailable [phone] Reason For Referral No Information Plan Of Treatment No Information Insurance Providers Payer Name Payer Address Payer Phone Subscriber Number Group Number Insured Name Patient Relationship to Insured Coverage Start Date Coverage End Date MEDICARE OF [place] [address] [place] [id number] [phone] [id number] [place] Self - patient is the insured MEDICAID OF [facility] [address] [place] [address] [id number] [employer] Self - patient is the insured
--- OUTSIDE RECORDS SUMMARY | 2025-03-15 14:49 | XMS_ITS ---
Author Organization [facility] Address [address] [place] [address] Care Team Providers Care Mid Level Net Developer Name Role Phone Deandre Aparicio MD, Renan Primary Care Provide r Eric Wyman [phone] REASON FOR VISIT Patient presents today for a COLON SCREENING Encounters Encounter Location Date Provider Diagnosis [facility] [address] [place] [phone] 01/28/2024 Eric Emmanuel Plan Of Treatment No Information Progress Notes * COLE BOWLESDOB: (69 yo F)Acc No.[id number]:01/28/2024 Progress Notes Patient:?COLE [employer]OWLES Provider:?Eric Emmanuel MD :1955???Age:68 Y???Sex:Female D ate:01/28/2024 Address:[address] [place] [address] [address] [id number] Pcp:Renan chavez MD Subjective: * Chief Complaints: [...] MD Date:? 024 Generated for Rebecca valdez/Marco/eTransmitting on:?03/15/2025 02:49 PM EDT
--- OUTSIDE RECORDS SUMMARY | 2025-03-15 14:49 | XMS_ITS | Encounter Summary ---
Author Organization [employer] Address [address] [place] [address] Care Team Providers Care Lamp Replacer Name Role Phone Renan Lawson MD Primary Care Provide r Edilberto Barahona PharmD Unavailable [phone] Richelle Albarado PharmD Unavailable [phone] Encounter Details Date Type Department Care Team (Late st Contact Info) Description 12/17/2022 Abstract [facility] [address] [place] [address] Renan Lawson MD [address] [place], [place] [phone] Social History Tobacco Use Types Packs/Day Years [...] Description 05/11/2025 1:00 PM EDT Office Visit [facility] [address] [place] [address] Renan Lawson MD [address] [place] [address] documented as of this encounter Visit Diagnoses Not on filedocumented in this encounter Additional Health Concerns Assessment Noted Time PHQ-9 Depression Total Score: 0 12/02/19 10:15 AM EST documented as of this encounter Care Teams Lamp Replacer Relationship Specialty Start Date End [place] [address] PCP - General Internal Medicine 12/10/21 Edilberto Barahona, KyD [address] [place] [address] Pharmacist Internal Medicine 07/14/23 10/24/24 Richelle Albarado, yKD [address] [place] [phone] Pharmacist Internal Medicine 10/25/24 documented as of this encounter
--- OUTSIDE RECORDS SUMMARY | 2025-03-15 14:50 | XMS_ITS | Encounter Summary ---
Author Organization [employer] Address [address] [place] [address] Care Team Providers Care Calculus Professor Name Role Phone Renan Lawson MD Primary Care Provide r Edilberto Barahona PharmD Unavailable [phone] Richelle Albarado PharmD Unavailable [phone] Reason for Visit * Reason Comments Med Refill Encounter Details Date Type Department Care Team ([facility] st Contact Info) Description 08/26/2024 Refill [facility] [address] [place], [place] [phone] Renan Lawson MD [address] [place], [place] [phone] Social History Tobacco Use Types Packs/Day Years [...] Description 05/11/2025 1:00 PM EDT Office Visit [facility] [address] [place] [address] Renan Lawson MD [address] [place] [address] documented as of this encounter Goals Goal [...] Diabetes mellitus type 2 with neurological manifestations 8.3(03/06/202 5 2:04 PM EST) No Edilberto Barahona, PharmD documented as of this encounter Visit Diagnoses Not on filedocumented in this encounter Additional Health Concerns Assessment Noted Time PHQ-9 Depression Total Score: 6 12/29/19 24 1:36 PM EST documented as of this encounter Care Teams Calculus Professor Relationship Specialty Start Date End Date Renan Lawson MD [address] [place] [address] PCP - General Internal Medicine 12/10/21 Edilberto Barahona, PharmD [address] [place] [address] Pharmacist Internal Medicine 07/14/23 10/24/24 Richelle Albarado, KyD [address] [place] [address] Pharmacist Internal Medicine 10/25/24 documented as of this encounter
== END 2025-03-15 13:56 | disposition home or self-care (01) ==
LOC: HO.HCS 13:31
PROVIDERS: PCP Internal Medicine; Visit Provider Internal Medicine
DX: I25.10 Atherosclerotic heart disease of native coronary artery without angina pectoris (principal); I45.10 Unspecified right bundle-branch block; E11.8 Type 2 diabetes mellitus with unspecified complications; I10 Essential (primary) hypertension; E78.5 Hyperlipidemia, unspecified; G47.33 Obstructive sleep apnea (adult) (pediatric); Z99.89 Dependence on other enabling machines and devices
CPT/HCPCS: 99214; G2211

== ENCOUNTER → 2025-03-15 13:31 | Outpatient (BNVA) | payer MEDICARE, MEDICAID, SELFPAY | PROVIDERS: PCP Internal Medicine; Visit Provider Internal Medicine | DX: I25.10 Atherosclerotic heart disease of native coronary artery without angina pectoris (principal); I45.10 Unspecified right bundle-branch block; I10 Essential (primary) hypertension; E78.5 Hyperlipidemia, unspecified; E11.8 Type 2 diabetes mellitus with unspecified complications; G47.33 Obstructive sleep apnea (adult) (pediatric); Z99.89 Dependence on other enabling machines and devices; Z79.899 Other long term (current) drug therapy | CPT/HCPCS: 99212 ==

== ENCOUNTER 2025-03-29 13:34 | Outpatient (AMB) | payer MEDICARE, MEDICAID, SELFPAY ==
--- NOTE | 2025-03-29 13:38 | A.OFFVIS_ITS ---
Vital Signs 03/29/25 13:40 Height 5 ft 6 in Weight 217 lb 6.012 oz BMI 35.1 BP 170/85 H Blood Pressure Location Lt brachial Position Sitting Pulse 97 Pulse Source Pulse Oximeter Pulse Oximetry (%) 95 Oxygen Delivery Method Room Air Intake Visit Reasons: cirrhosis Intake Note: Pt presents to the office today for cirrhosis. Allergies bee pollen [BEE STINGS] Allergy (Unknown, Verified 03/29/25 13:38) ANAPHYLAXIS morphine [MORPHINE] Allergy (Unknown, Verified 03/29/25 13:38) ITCHING HPI Comments Details: Naa is a 69 y.o F with PMH of asthma, EDWIN, T2DM who is here for second opinion. 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 Seen with the assistance of Da SAGE for ukrainian interpretation. Accompanied by grand daughter. Here for R sided pain that started almost a month ago. Not assoc with change in appetite, N/V. There all the time per her report. Sometimes notices it more with certain positions such as bending down or laying down in opposite direction. Pain has been bothering enough to seek pain management consultation. Recent chest CT shows possible cirrhosis for which she made this appt. Pt has had known fatty liver. Most recent liver imagin07/12/24: US Abd 1. There is hepatomegaly. 2. There is generalized increase in hepatic echotexture, consistent with fatty infiltration or hepatocellular disease. Please correlate clinically. No focal hepatic mass or intrahepatic biliary dilatation is seen. 3. Technically limited ultrasound examination of the pancreas and abdominal great vessels. SHe does not drink. No current or past drug use. No fam hx of liver disease. Has known DM and HLD - suboptimally controlled based on available labs. BMI 35. CRC screening: Cologuaareli 09/2024 - NEGATIVE. 03/29/25: Seen in follow up. reports no acute GI concerns including abd pain, N,V. No pruritus, or abd distention. Labs reviewed, consistent with MASH. MRI reviewed 1. Hepatosplenomegaly and hepatic steatosis. No enhancing liver mass is identified. 2. Bilateral renal cysts as described. Again reminded pt to discuss elevated A1c with PCP. She was also updated re large renal cysts with one measuring 10 cm. [facility] Medical History Periumbilical abdominal pain EDWIN on CPAP Chronic restrictive lung disease Chronic allergic rhinitis Asthma Other and unspecified hyperlipidemia Essential hypertension Type 2 diabetes mellitus with unspecified complications Atherosclerotic cardiovascular disease Surgical History History of esophagogastroduodenoscopy (EGD) Hx of colonoscopy Family History Mother HTN (hypertension) Heart disease Asthma Maternal Aunt Breast cancer Maternal Aunt Tumor Maternal Aunt Cancer Social History Household Members: Spouse and Family Household Members Other:: 4 household members Housing: Apartment Do you presently have visiting nurse or other home services: No Alcohol intake: never Patient Tobacco Use Status: Never used Tobacco service: No Review of Systems Const All systems reviewed & are unremarkable except as noted in HPI and below Physical Exam Vital Signs: Last Vital Signs Pulse 97 03/29/25 13:40 BP 170/85 H 03/29/25 13:40 Pulse Ox 95 03/29/25 13:40 Oxygen Delivery Method Room Air 03/29/25 13:40 BMI result Body Mass Index 35.1 appears older than stated age Nonicteric Abdomen soft, RUQ tenderness, palpable liver edge, diastasis recti Alert and oriented x3, normal gait Palmar erythema, spider angioma Assessment & Plan Assessment & Plan (1) Elevated LFTs: Code(s): R79.89 - Other specified abnormal findings of blood chemistry Category: Medical (2) Abnormal liver diagnostic imaging: Code(s): R93.2 - Abnormal findings on diagnostic imaging of liver and biliary tract Category: Medical (3) Davis's esophagus determined by biopsy: Comment: 01/2020 EGD SSBE not visualized but evident on biopsy, repeat in 2021 Code(s): K22.70 - Davis's esophagus without dysplasia Category: Medical (4) Colon cancer screening: Code(s): Z12.11 - Encounter for screening for malignant neoplasm of colon Category: Medical (5) Diabetes: Code(s): E11.9 - Type 2 diabetes mellitus without complications Category: Medical (6) Obesity: Code(s): E66.9 - Obesity, unspecified Category: Medical Plan 1. Elevated LFTs ? cirrhosis Reviewed with the pt that based on testing done, does not appear to have cirrhosis at this time but advanced fibrosis not ruled out. Fib 4 is 2.18. Again counseled extensively on modification of metabolic risk factors including obesity, DM, HLD. Pt already on GLP1 dulaglutide and has lost 5 lbs since she was last seen. Plan: - Although no stigmata of cirrhosis based on testing so far, can not rule out advanced fibrosis - Will elect for q6m HCC screening - Consider switching to tirzepatide which has been shown to have better weight loss - Pt again reminded to take her statin 2. SSBE Overdue for surveillance. EGD to be booked. Pt aware to HOLD her trulicity x 7 days prior to the procedure. 3. CRC screening Cologuard neg 2023. Next CRC screening due 2026. Follow up after egd Coding Level of Care Code Est Pt Level 4 (73967) Complex EM visit Add On G2211 Diagnoses Elevated LFTs R79.89 Abnormal liver diagnostic imaging R93.2 Davis's esophagus determined by biopsy K22.70 Colon cancer screening Z12.11 Diabetes E11.9 Obesity E66.9
[2025-03-29 13:40] VITALS: BP 170/85; PULSE 97; O2SAT 95; BMI 35.1
--- OUTSIDE RECORDS SUMMARY | 2025-03-29 14:09 | XMS_ITS | Encounter Summary ---
Author Organization [facility] [employer] [facility] Address [address] 7t [place] [address] Care Team Providers Care Capacity Planning Engineer Name Role Phone Renan Lawson MD Primary Care Provide r Richelle Albarado PharmD Unavailable [phone] Reason for Visit * Reason Onset Date Comments Prior Authorization 03/15/2025 Durable Medical Equipment 03/15/2025 Encounter Details Date Type Department Care Team (Late st Contact Info) Description 03/15/[address] [facility] [address] [place] [address] Renan Lawson MD [address] [place], [place] [phone] Prior Authorization; Durable Medical Equipment Social History Tobacco Use Types Packs/Day Years [...] encounter Miscellaneous Notes * Telephone Encounter - Graciela Willis RN - 03/27/2025 10:46 AM EDT Faxed signed packet to [facility] at [phone]. Confirmation received. * Telephone Encounter - Britni Brink RN - 03/16/2025 9:33 AM EDT Scripts generated and placed on PCP's desk. Pending signature. * Telephone Encounter - Stefany Soto - 03/15/2025 2:00 PM EDT Tc from [facility] with [facility] requesting new script for continuous glucose monitor and recent chart notes. F. [phone] P. [phone] documented in this encounter Plan of Treatment Upcoming Encounters Date Type Department Care Team (Late st Contact Info) Description 05/11/2025 1:00 PM EDT Office Visit [facility] [address] [place] [address] Renan Lawson MD [address] [place] [address] documented as of this encounter Goals Goal [...] documented as of this encounter Care Teams Capacity Planning Engineer Relationship Specialty Start Date End Date Renan Lawson MD [address] [place] [address] PCP - General Internal Medicine 12/10/21 Richelle Albarado PharmD [address] [place] [address] Pharmacist Internal Medicine 10/25/24 documented as of this encounter
--- OUTSIDE RECORDS SUMMARY | 2025-03-29 14:09 | XMS_ITS | Encounter Summary ---
Author Organization [employer] Address [address] [place] [address] Care Team Providers Care Well Driller Name Role Phone Renan Lawson MD Primary Care Provide r Edilberto Barahona PharmD Unavailable + Richelle Albarado PharmD Unavailable [phone] Reason for Visit * Reason Comments Med Refill Encounter Details Date Type Department Care Team ([facility] st Contact Info) Description 01/15/2024 Refill [facility] [address] [place], [place] [phone] Shantell Will MD [address] [place], [place] [phone] Fibromyalgia Social History Tobacco Use Types Packs/Day [...] Description 05/11/2025 1:00 PM EDT Office Visit [facility] [address] [place] [address] Renan Lawson MD [address] [place] [address] documented as of this encounter Goals Goal [...] documented as of this encounter Care Teams Well Driller Relationship Specialty Start Date End Date Renan Lawson MD [address] [place] [address] PCP - General Internal Medicine 12/10/21 Edilberto Barahona PharmD [address] [place] [address] Pharmacist Internal Medicine 07/14/23 10/24/24 Richelle Albarado PharmD [address] [place] [address] Pharmacist Internal Medicine 10/25/24 documented as of this encounter
--- OUTSIDE RECORDS SUMMARY | 2025-03-29 14:09 | XMS_ITS | Encounter Summary ---
Author Organization [employer] Address [address] 7[address] [place] [address] Care Team Providers Care Pharmacologist Name Role Phone Renan Lawson MD Primary Care Provide r Edilberto Barahona PharmD Unavailable [phone] Richelle Albarado PharmD Unavailable [phone] Reason for Visit * Reason Comments Med Refill Encounter Details Date Type Department Care Team ([facility] st Contact Info) Description 02/09/2024 Refill [facility] [address] [place], [place] [phone] Renan Lawson MD [address] [place], [place] [phone] Fibromyalgia Social History Tobacco Use Types Packs/Day [...] Description 05/11/2025 1:00 PM EDT Office Visit [facility] [address] [place] [address] Renan Lawson MD [address] [place] [address] documented as of this encounter Goals Goal [...] documented as of this encounter Care Teams Pharmacologist Relationship Specialty Start Date End Date Renan Lawson MD [address] [place] [address] PCP - General Internal Medicine 12/10/21 Edilberto Barahona PharmD [address] [place] [address] Pharmacist Internal Medicine 07/14/23 10/24/24 Richelle Albarado PharmD [address] [place] [address] Pharmacist Internal Medicine 10/25/24 documented as of this encounter
--- OUTSIDE RECORDS SUMMARY | 2025-03-29 14:09 | XMS_ITS | Encounter Summary ---
Author Organization [facility] Address [address] [place] [address] Care Team Providers Care House Decorator Name Role Phone Renan Lawson MD Primary Care Provide r Edilberto Barahona PharmD Unavailable [phone] Richelle Albarado PharmD Unavailable [phone] Encounter Details Date Type Department Care Team (Late st Contact Info) Description 12/17/2022 Abstract [facility] [address] [place], [place] [phone] Renan Lawson MD [address] [place], [place] [phone] Social History Tobacco Use Types Packs/Day Years [...] Description 05/11/2025 1:00 PM EDT Office Visit [facility] [address] [place] [address] [place] [address] documented as of this encounter Visit Diagnoses Not on filedocumented in this encounter Additional Health Concerns Assessment Noted Time PHQ-9 Depression Total Score: 0 12/02/19 10:15 AM EST documented as of this encounter Care Teams House Decorator Relationship Specialty Start Date End Date Ren[place] [address] PCP - General Internal Medicine 12/10/21 Edilberto Barahona, KyD [address] [place] [address] Pharmacist Internal Medicine 07/14/23 10/24/24 Richelle Albarado, KyD [address] [place] [address] Pharmacist Internal Medicine 10/25/24 documented as of this encounter
--- OUTSIDE RECORDS SUMMARY | 2025-03-29 14:09 | XMS_ITS ---
Author Organization [facility] Address [address] [place] [address] Care Team Providers Care Quality Assurance Supervisor Body Name Role Phone Deandre Aparicio MD, Renan Primary Care Provide r Eric Wyman [phone] REASON FOR VISIT Patient presents today for a COLON SCREENING Encounters Encounter Location Date Provider Diagnosis [facility] [address] [place] [phone] 01/28/2024 Eric Emmanuel Plan Of Treatment No Information Progress Notes * COLE BOWLESDOB: (69 yo F)Acc No.[id number]:01/28/2024 Progress Notes Patient:?COLE BOWLES Provider:?Eric Emmanuel MD :1955???Age:68 Y???Sex:Female D ate:01/28/2024 Address:[address] [place] [address] [address] , [id number] Pcp:Renan chavez MD Subjective: * Chief Complaints: [...] MD Date:? 024 Generated for Rebecca valdez/Marco/eTransmitting on:?03/29/2025 02:08 PM EDT
--- OUTSIDE RECORDS SUMMARY | 2025-03-29 14:09 | XMS_ITS | Encounter Summary ---
Author Organization [facility] Address [address]t [place] [address] Care Team Providers Care Curriculum Advisory Teacher Name Role Phone Renan Lawson MD Primary Care Provide r Edilberto Barahona PharmD Unavailable [phone] Richelle Albarado PharmD Unavailable [phone] Reason for Visit * Reason Onset Date Comments Reschedule 05/20/2023 Encounter Details Date Type Department Care Team ([facility] Contact Info) Description 05/20/2023 Telephone [facility] [address] [place], [place] [phone] Renan Lawson MD [address] [place], [place] [phone] Reschedule Social History Tobacco Use Types Packs/Day [...] knee injection appointment. Please contact pt at [phone] (Turkmen speaker) documented in this encounter Plan of Treatment Upcoming Encounters Date Type Department Care Team (Late st Contact Info) Description 05/11/2025 1:00 PM EDT Office Visit [facility] [address] [place], [place] [phone] Renan Lawson MD [address] [place] [address] documented as of this encounter Goals Goal [...] documented as of this encounter Care Teams Curriculum Advisory Teacher Relationship Specialty Start Date End Date Renan Lawson MD [address] [place] [phone] PCP - General Internal Medicine 12/10/21 Edilberto Barahona PharmD [address] [place] [phone] Pharmacist Internal Medicine 07/14/23 10/24/24 Richelle Albarado PharmD [address] [place] [phone] Pharmacist Internal Medicine 10/25/24 documented as of this encounter
--- OUTSIDE RECORDS SUMMARY | 2025-03-29 14:09 | XMS_ITS | Encounter Summary ---
Author Organization [employer] [facility] Address [address] 7t [place] [address] Care Team Providers Care Armament Repairer Name Role Phone Renan Lawson MD Primary Care Provide r Edilberto Barahona PharmD Unavailable [phone] Richelle Albarado PharmD Unavailable [phone] Reason for Referral * Imaging (Routine) - Closed Specialty Diagnoses / Procedures Referred By Tiffany milian Referred To Contact Radiology Diagnoses Right lower quadrant abdominal pain Procedures US Pelvis Transvaginal Moira Edouard FNP [address] [place] [address] Phone: tel: fax: [address] Phone: tel: fax: Referral ID Status Reason Start Date Expiration Date Visits Re quested Visits Authorized [id number] Closed 08/07/2023 08/06/2024 1 1 Encounter Details Date Type Department Care Team (Late st Contact Info) Description 08/07/2023 Orders Only [facility] [address] [place] [address] Moira Edouard FNP [address] [place] [address] Right lower quadrant abdominal pain (Primary Dx) [...] Description 05/11/2025 1:00 PM EDT Office Visit [facility] [address] [place] [address] Renan Lawson MD [address] [place] [address] documented as of this encounter Goals Goal [...] EST Narrative 10/08/2023 5:03 PM EST ? [facility] ?[address] ?[place] [address] ? Ultrasound Report ? Signed ? Patient: Slava,Christianne ?MR#: [id number] ?? [id number] ? : 1955 ?Acct:[id number] ? Age/Sex: 67 / F ?ADM Date: 10/07/23 ? Loc: HO.US ? Attending Dr: Moira Edouard NP ? Ordering Physician: Moira Edouard NP ?? Date of Service: 10/07/23 ?? Procedure(s): US pelvic and transvaginal ?? Accession Number(s): [id number] ? cc: Moira Edouard NP; Renan Cabral [...] ? DD/DT: // 1146 ? TD/TT: ? Boat Canvas Maker Installer: ? Procedure Note Donotuseinterpreter, Image - 10/08/[address] [address] Ultrasound Report Signed Patient: Naa Pedersen EMR#: [id number] : 6Acct:[id number] Age/Sex: 67 / FADM Date: 10/07/23 Loc: HO.US Attending Dr: Moira Edouard NP Ordering Physician: Moira Edouard NP Date of Service: 10/07/23 Procedure(s): US pelvic and transvaginal Accession Number(s): [id number] cc: Moira Edouard NP; Renan Cabral MD [...] in OV> 10/08/23 1659 DD/ 1146 TD/TT: Boat Canvas Maker Installer: us Moira Edouard STEAM FLATTENER IMG US PROCEDURES Final Result documented in this encounter Visit Diagnoses Diagnosis Right lower quadrant abdominal pain- Primary documented in this encounter Additional Health Concerns Assessment Noted Time PHQ-9 Depression Total Score: 0 12/02/19 10:15 AM EST documented as of this encounter Care Teams Armament Repairer Relationship Specialty Start Date End Date Renan Lawson MD [address] [place] [address] PCP - General Internal Medicine 12/10/21 Edilberto Barahona, KyD [address] [place] [address] Pharmacist Internal Medicine 07/14/23 10/24/24 Richelle Albarado PharmD [address] [place] [phone] Pharmacist Internal Medicine 10/25/24 documented as of this encounter
--- OUTSIDE RECORDS SUMMARY | 2025-03-29 14:09 | XMS_ITS | Patient Health Record ---
Author Organization [facility] Address [address] [place] [address] Care Team Providers Care Licensed Aircraft Maintenance Engineer Name Role Phone Deandre Aparicio MD, Renan Primary Care Provide r Unavailable Eric Emmanuel Unavailable [phone] Reason For Referral No Information Plan Of Treatment No Information Insurance Providers Payer Name Payer Address Payer Phone Subscriber Number Group Number Insured Name Patient Relationship to Insured Coverage Start Date Coverage End Date MEDICARE OF [place] [address] [place] [phone] [id number] COLE BOWLES Self - patient is the insured MEDICAID OF [facility] [address] [place] [address] [id number] COLE BOWLES Self - patient is the insured
--- OUTSIDE RECORDS SUMMARY | 2025-03-29 14:09 | XMS_ITS | Encounter Summary ---
Author Organization [employer] Address [address] 7t [place] [address] Care Team Providers Care Data Recovery Planner Name Role Phone Renan Lawson MD Primary Care Provide r Edilberto Barahona PharmD Unavailable + Richelle Albarado PharmD Unavailable [phone] Encounter Details Date Type Department Care Team (Late Contact Info) Description 10/22/2022 Orders Only [facility] [address] [place] [address] Denise Leyva LPN Social History Tobacco Use [...] Office Visit [facility] [address] [place], [place] [phone] Renan Lawson MD [address] [place] [address] documented as of this encounter Visit Diagnoses Not on filedocumented in this encounter Care Teams Data Recovery Planner Relationship Specialty Start Date End Date Renan Lawson MD [address] [place] [address] PCP - General Internal Medicine 12/10/21 Edilberto Barahona, KyD [address] [place] [address] Pharmacist Internal Medicine 07/14/23 10/24/24 Richelle Albarado, KyD [address] [place] [address] Pharmacist Internal Medicine 10/25/24 documented as of this encounter
--- OUTSIDE RECORDS SUMMARY | 2025-03-29 14:09 | XMS_ITS ---
Author Organization [facility] Address [address] [place] [address] Care Team Providers Care Heating And Cooling Systems Engineer Name Role Phone Deandre Aparicio MD, Renan Primary Care Provide r Eric Wyman [phone] REASON FOR VISIT Pt no show Encounters Encounter Location Date Provider Diagnosis [facility] [address] [place] [address] 01/28/2024 Eric Emmanuel Plan Of Treatment No Information Progress Notes * BOWLES COLEDOB: 6 (68 yo F)Acc No.[id number]:01/28/2024 Patient:?COLE BOWLES :1955???Age:68 Y???Sex:Female Address:[address] [place] [address] [address] , [place] * true * Date:? Generated for Cesari josé miguel/Marco/eTransmitting on:?03/29/2025 02:08 PM EDT
--- OUTSIDE RECORDS SUMMARY | 2025-03-29 14:09 | XMS_ITS | Encounter Summary ---
Author Organization [employer] Address [address] [place] [address] Care Team Providers Care Network Relay Tester Name Role Phone Renan Lawson MD Primary Care Provide r Edilberto Barahona PharmD Unavailable +[phone] Richelle Albarado PharmD Unavailable [phone] Reason for Visit * Reason Onset Date Comments Appointment Request 08/26/2023 Encounter Details Date Type Department Care Team ([facility] st Contact Info) Description 08/26/2023 Telephone [facility] [address] [place], [place] [phone] Renan Lawson MD [address] [place], [place] [phone] Appointment Request Social History Tobacco Use Types [...] Description 05/11/2025 1:00 PM EDT Office Visit [facility] [address] [place] [address] Renan Lawson MD [address] [place] [address] documented as of this encounter Goals Goal [...] documented as of this encounter Care Teams Network Relay Tester Relationship Specialty Start Date End Date Renan Lawson MD [address] [place] [address] PCP - General Internal Medicine 12/10/21 Edilberto Barahona PharmD [address] [place] [address] Pharmacist Internal Medicine 07/14/23 10/24/24 Richelle Albarado PharmD [address] [place] [address] Pharmacist Internal Medicine 10/25/24 documented as of this encounter
--- OUTSIDE RECORDS SUMMARY | 2025-03-29 14:09 | XMS_ITS | Clinical Summary ---
Author Organization [employer] Address [address] [facility] [address] [place] [address] Care Team Providers Care Harpooner Name Role Phone Renan Lawson MD Primary Care Provide r Richelle Albarado PharmD Unavailable [phone] Allergies Active Allergy Reactions Criticality Noted Date [...] tablets by mouth at bed time. Active butalbital-acetam inophen-caffeine 50-325-40 MG tablet TOME EVELIO TABLETA CADA [...] tablet Active omeprazole (PriLOSEC) [address] capsuleIndication s:Davis's esophagus without dysplasia TAKE 1 CAPSULE BY MOUTH TWICE DAILY IN THE MORNING AND AT BEDTIME 60 capsule 4 Active venlafaxine XR (Effexor XR) 37.5 MG 24 hr capsule TOME EVELIO C PSULA TODOS LOS D EN LA ALONA WALESKA Active metoclopramide (Reglan) 5 MG tablet Take 5 mg by mouth 3 times daily. 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 RINSE MOUTH AFTER USING.. Active Azelastine HCl 137 MCG/SPRAY solution 2 spray into both nostrils Active estradiol (Estrace) 0.1 MG/GM vaginal cream APPLY PEA-SIZED AMOUNT TO URETHRA DAILY FOR 1 MONTH. AFTER 1 MONTH APPLY 3 TIMES A WEEK Active ketorolac (Acular) 0.5 % ophthalmic solution Use as directed 11/05/2 024 Active Senna-Time 8.6 MG tablet Take 2 tablets by mouth at bedtime. Active Alcohol Swabs (CVS Prep) 70 % pads Apply 1 Swab topically if needed each day (for injection or CGM placement). 100 each 3 024 Active glucose blood (FreeStyle Precision Cheikh Test) test stripIndications: 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) Use to test blood sugar up to 3 times daily, as directed 100 each 11 024 Active Continuous Glucose Back Grinder (FreeStyle Richard 3 Hunter) deviceIndications :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) 1 each 3 times daily. Use daily as directed for CGM 1 each 024 Active amLODIPine (Norvasc) 10 MG tabletIndications :Primary hypertension TAKE 1 TABLET BY MOUTH EVERY DAY IN THE MORNING 90 tablet 025 Active atorvastatin (Lipitor) 80 MG tabletIndications :Mixed hyperlipidemia TAKE 1 TABLET BY MOUTH EVERY DAY AT BEDTIME 90 tablet 025 Active cetirizine (ZyrTEC) 10 MG tabletIndications :Seasonal allergies TAKE 1 TABLET BY MOUTH EVERY DAY AT BEDTIME 90 tablet 025 Active ezetimibe (Zetia) 10 MG tabletIndications :Mixed hyperlipidemia TAKE 1 TABLET BY MOUTH EVERY MORNING 90 tablet 025 Active metoprolol succinate XL (Toprol-XL) 50 MG 24 hr tabletIndications :Primary hypertension TAKE 1 TABLET BY MOUTH EVERY MORNING DO NOT BREAK, CRUSH, DISSOLVE OR CHEW 90 tablet 025 Active cyanocobalamin (Vitamin B-12) 1000 MCG tabletIndications :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) TAKE 1 TABLET BY MOUTH EVERY MORNING 90 tablet 025 Active metFORMIN XR (Glucophage-XR) 500 MG 24 hr tabletIndications :Type 2 diabetes mellitus without complication, without long-term current use of insulin (CMS/HCC) TAKE 2 TABLETS BY MOUTH TWICE DAILY IN THE MORNING AND IN THE EVENING 360 tablet 025 Active fluticasone (Flonase) 50 MCG/ACT nasal spray USE 2 SPRAYS IN EACH NOSTRIL ONCE DAILY 48 g 025 Active cyclobenzaprine (Flexeril) 5 MG tablet TOME 1 TABLETA POR V A ORAL TODOS LOS D AL ACOSTARSE CUANDO SEA NECESARIO FOR 30 DAYS 025 Active naproxen (Naprosyn) 500 MG tablet 025 Active BD Pen Needle Arti U/F 32G X 4 MM miscIndications: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 2 mL 025 Active lisinopril 20 MG tabletIndications :Primary hypertension Take 1 tablet (20 mg) by [...] Active insulin glargine (Basaglar KwikPen) 100 UNIT/ML penIndications:Di abetes mellitus type 2 with neurological manifestations (CMS/HCC) INJECT 42 UNITS SUBCUTANEOUSLY EVERY DAY 15 mL 1 025 Active pregabalin (Lyrica) 200 MG capsuleIndication s:Fibromyalgia TAKE 1 CAPSULE BY MOUTH TWICE DAILY IN THE MORNING AND IN THE EVENING 60 capsule 025 Active Aspirin Low Dose 81 MG EC tabletIndications :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) TAKE 1 TABLET BY MOUTH DAILY AT BEDTIME 90 tablet 1 025 Active Aspirin Low Dose 81 MG EC tabletIndications :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) TAKE 1 TABLET BY MOUTH EVERY DAY AT BEDTIME 90 tablet 1 024 2024 Discontinued pregabalin (Lyrica) 200 MG capsuleIndication s:Fibromyalgia TAKE 1 CAPSULE BY MOUTH TWICE DAILY [...] at home monitoring and current therapy - [facility] ED to check on status of Freestyle richard [...] Pt was seen by an orthopaedist at [facility]. [facility] health care 12/02/2022 Overview (09/07/2023): Continues [...] for a HDF, She was admitted to [facility] from 11/10--05/2023 She presented with syncope with [...] acute finding. Pt was seen by her Drawing Tender Dr Freeman and is currently wearing an [...] atorvastatin, Zetia and Praluent. Last seen by Drawing Tender Dr Freeman 07/2024 Assessment & Plan (09/15/2023 [...] under the care of Ben Carson Director Account Management, last seen 07/29/2024 Currently on Ventolin , uses albuterol nebulizarions as well. Dr Carson stopped her other inhalers Assessment & Plan (09/15/2023 3:23 PM EST): Patient under the care of Ben Carson Director Account Management, last seen April Currently on Ventolin and Breztri Aerosphere , uses albuterol nebulizarions as well Assessment & Plan (12/02/2022 8:52 AM EST): Patient under the care of Ben Carson Director Account Management, last seen January 2022 Currently on Ventolin [...] PM EST): Pt under the care of Reefer Engineer at [facility] , last seen 10/2023 Currently on a regimen of Dexilant 60 mg po daily and Omeprazole 40 mg po daily Assessment & Plan (12/02/2022 8:52 AM EST): Pt under the care of Reefer Engineer at [facility] Currently on a regimen of Dexilant 60 [...] (05/04/2023 3:40 PM EDT): - Freestyle Richard Hunter and Sensor Ordered - A1c is not [...] found on MRI of lower back at [facility] in 2008, unchanged 2009. Sl enlarged 2013. Ref uro Davis's esophagus 01/03/2013 Overview (12/02/2022): Last EGD - Dr. Parviz Sommers, [facility] 01.06.2020 Assessment & Plan (09/29/2024 2:39 PM EST): She has been under the care of tad Paz seen 07/2024 She is due to repeat [...] daily History: - followed by Nixon's office [facility] Cardiology Assessment & Plan (09/29/2024 12:59 PM [...] being followed by Dr. Jarod Angelo ([address] ). She is now under the care of the Pain Clinic at [facility] Re cent x-ray ordered by them 12/22/2023 [...] is being followed by Dr. Jarod Angelo ([address] ). She is now under the care of the Pain Clinic at [facility] Re cent x-ray ordered by them 12/22/2023 [...] is being followed by Dr. Jarod Angelo ([address] ). Depressive disorder 11/09/1959 Assessment & Plan (12/23/2022 2:42 PM EST): Patient under the care of psychiatrist at [place] Currently on a regimen of: Clonazepam 0.5 mg po BID PRN, Trazodone 100 mg po qhs and Mirtazapine 45 mg po at bedtime Pt reports she has agoraphobia and cannot attend Jury Duty She is requesting a letter that due to the fact that she does not speak venezuelan and has a psychiatric condition that causes her extreme anxiety when she is surrounded by people, she cannot attend Jury duty Assessment & Plan (12/02/2022 8:44 AM EST): Patient under the care of psychiatrist at [place] [facility] Currently on a regimen of: Clonazepam 0.5 [...] Encounters Date Type Department Care Team Description 03/22/2025 Refill [facility] [address] [place] [phone] Renan Lawson MD Diabetes mellitus type 2 with neurological manifestations ([facility]/HCC) 03/15/2025 Telephone [facility] [address] [place], [place] [address] [address] Renan Lawson MD Prior Authorization; Durable Medical Equipment 02/28/2025 Refill [facility] [address] [place] [address] Renan Lawson MD Fibromyalgia 02/21/2025 Refill [facility] [address] [place] [address] Renan Lawson MD Diabetes mellitus type 2 with neurological manifestations ([facility]/HCC) 02/03/2025 Telephone [facility] [address] [place] [phone] Renan Lawson MD Results 02/01/2025 Orders Only GENERIC EXTERNAL DATA DEPARTMENT Provider, Generic External Data 01/30/2025 Telephone [facility] [address] [place] [phone] Britni Brink, MILES Paperwork/Forms 01/25/2025 Refill [facility] [address] [place] [address] Renan Lawson MD Fibromyalgia 01/23/2025 Travel 01/23/2025 Refill [facility] [address] [place] [phone] Renan Lawson MD Diabetes mellitus type 2 with neurological manifestations ([facility]/HCC) 01/18/2025 Telephone [facility] [address] [place] [phone] Renan Lawson MD Chart Prep 01/18/2025 Patient Outreach [address] [address] Renan Lawson MD Care Coordination ([facility] outreach for SDOH food needs-referral completed /) 01/18/2025 Patient Outreach [facility] [address] [place] [phone] Renan Lawson MD Pre-visit Planning (SDOH Screening positive and Tobacco screening negative) 01/12/2025 Orders Only GENERIC EXTERNAL DATA DEPARTMENT Provider, Generic External Data from Last 3 Months Immunizations Immunization Administration Dates Next Due Hep B, adult [...] Description 05/11/2025 1:00 PM EDT Office Visit [facility] [address] [place] [address] Renan Lawson MD [address] [place] [address] Health Maintenance Due Date Last Done Comments CT Colonography 1955 Colonoscopy 1955 Colorectal Cancer Screening 1955 FIT DNA/Cologuard 1955 FIT 1955 FOBT 1955 Sigmoidoscopy 1955 Diabetes: Foot Exam 1965 RSV Patients and Patients Aged 60 years or older (1 - Risk 60-74 years 1-dose series) 2015 Diabetes: Urine Protein Screening 12/19/2022 12/19/2021 Depression Screening 12/29/2024 12/29/2023, 12/29/19 24 Diabetes: Hemoglobin A1C 04/14/2025 025, 09/09/2024, 07/07/2024, Additional history exists COVID-19 Vaccine ( season) 2025 10/24/2024, 12/19/2021, 03/10/2021, Additional history exists Hepatitis B Vaccines (3 [...] Additional history exists Zoster Vaccines Completed 05/23/2022, 0512/2021, 12/31/2017 Pneumococcal Vaccine: 50+ Years Completed 03/20/2023, 03/10/2022, 08/07/2016, Additional history exists Influenza Vaccine Completed 09/29/2024, , 07/18/2021, Additional history exists Hepatitis C Screening Completed [...] patient's age to complete this topic Meningococcal B Vaccine Aged Out No l onger eligible based on patient's age to complete [...] PM EDT CULTURE, URINE, ROUTINE Routine 02/02/20 12:59 PM [...] IMMUNOGLOBULIN G Routine 01/12/2025 2:04 PM EST [id number] QN Routine 2:04 PM EST CERULOPLASMIN Routine [...] EDT Narrative 03/05/2025 9:42 AM EDT ? [facility] ? [address] ?[place] [address] ?[phone] ? Mammography Report ? Signed ? Patient: Naa Pedersen ?MR#: [id number] ?? [id number] ? : 1955 ?Acct:[id number] ? Age/Sex: 69 / F ?ADM Date: 04/18/25 ? Loc: HO.MAMMO ? Attending Dr: Renan Cabral MD ? Ordering Physician: Renan Cabral MD ?Resu ?? lts: 1Negative ? Date of Service: 02/24/25 ?Follow Up: 1 Year From Orig ?? inal Mammogram ? Procedure(s): MM tomosynthesis screening BI ?? Accession Number(s): [id number] ? cc: Renan Cabral MD ? EXAMINATION: [...] DD/ 1353 ? TD/TT: 02/24/25 1403 ? Greige Goods Examiner: ? Procedure Note Donotuseinterpreter, Image - 03/05/2025 [facility] [address] [place], [place] [address] Mammography Report Signed Patient: Naa Pedersen EMR#: [id number] : 1955cct:[id number] Age/Sex: 69 / FADM Date: 02/24/25 Loc: HO.MAMMO Attending Dr: Renan Cabral MD Ordering Physician: Renan Cabral MDResu lts: 1Negative Date of Service: 02/24/25Follow Up: 1 Year From Orig inal Mammogram Procedure(s): MM tomosynthesis screening BI Accession Number(s): [id number] cc: Renan Cabral MD EXAMINATION: MM SCREENING [...] 03/05/25 0940 DD/ 1353 TD/TT: 02/24/25 1403 Greige Goods Examiner: us Renan Aparicio MD IMG BI PROCEDURES Robert genia Result - Final * Culture, Urine, Routine (02/01/2025 12:59 PM EDT) Urine Urine specimen obtained by clean catch procedure / Unknown 02/01/2025 12:59 PM EDT 02/01/2025 4:37 PM EDT Comment:[facility] Narrative [facility] - 02/03/2025 7:43 AM EDT [...] GENERAL ORDERABLES Final Result Performing Organization Address City/State/[facility] Co de Phone Number [facility] [address] [place] [phone] * MR Abdomen w/ and w/o Contrast (01/22/2025 3:49 PM EDT) Anatomical Region Laterality Modality Abdomen Magnetic Resonan ce 01/22/2025 3:49 PM EDT Narrative 01/23/2025 7:09 AM EDT ? [facility] ?[address] ?[place] [address] ? Magnetic Resonance Report ? Signed ? Patient: Pedersen,Christianne ?MR#: [id number] ?? [id number] ? : 1955 ?Acct:[id number] ? Age/Sex: 69 / F ?ADM Date: 03/16/25 ? Loc: HO.MRI ? Attending Dr: Jennifer Conn MD ? Ordering Physician: Jennifer Conn MD ?? Date of Service: 01/22/25 ?? Procedure(s): MR abdomen wo/w con ?? Accession Number(s): [id number] ? cc: Renan Cabral MD; Jennifer Conn [...] by Eric Cooper MD in OV> ?01/23/25 07 ? DD/ 1549 ? TD/TT: 01/22/25 1612 ? Greige Goods Examiner: ? Procedure Note Donotuseinterpreter, Image - 01/23/[address] [address] Magnetic Resonance Report Signed Patient: Naa Pedersen EMR#: [id number] : 6Acct:[id number] Age/Sex: 69 / FADM Date: 01/22/25 Loc: HO.MRI Attending Dr: Jennifer Conn MD Ordering Physician: Jennifer Conn MD Date of Service: 01/22/25 Procedure(s): MR abdomen wo/w con Accession Number(s): [id number] cc: Renan Cabral MD; Jennifer Conn MD [...] 01/23/25 0706 DD/ 1549 TD/TT: 01/22/25 1612 Greige Goods Examiner: [facility] External Provider IMG MRI PROCEDURES Final Result * Hepatitis C Ab (01/12/2025 2:04 PM EST) Pathologist [facility] Hepatitis C Antibody Nonreactive Nonreactive [facility] Comment:Antibodies to HCV no t detected; does not exclude early acuteHCV infection. 01/12/2025 2:04 PM EST 01/12/2025 2:04 PM EST Generic External Data Provider LAB BLOOD ORDERAB LES Final Result [facility] [address] [place] [address] [phone] * HCV RNA BY PCR, QN RFX MADDISON (01/12/2025 2:04 PM EST) Pathologist [facility] HCV RNA PCR QN <15 NOT DETECTED NOT DETECTED IU/mL [facility] HCV RNA PCR QN <1.18 NOT DETECTED NOT DETECTED Log IU/mL [facility] HCV RNA COMMENT SEE NOTE [facility] Comment:For additional infor mation, please refer tohttp://education.Zoutons/faq/ASY32l9(This link is being provided for informational/Educational purposes only.)THIS TEST WAS PERFORMED AT:[facility] [place] [phone] SNOWDEN MD HCV RNA GENOTYPE,LIPA TNP [facility] Comment:Test not indicated. 01/12/2025 2:04 PM EST 01/12/2025 2:04 PM EST us Generic External Data Provider LAB BLOOD ORDERAB LES Final Result [facility] [address] [place] [address] [phone] * Drug Monitoring, Phosphatidylethanol (PEth), Blood (01/12/2025 2:04 PM EST) Phosphatidylethanol, Blood NEGATIVE [facility] Comment:REFERENCE RANGE: <20 ng/mLTHIS TEST PERFORMED AT:[facility] [phone] DIRECTOR: HUSSEIN COREAS MD, PHD [facility] 16:0/18:2 (PLPEth) NEGATIVE [facility] Comment:REFERENCE RANGE: <20 ng/mLTHIS TEST PERFORMED AT:[facility] [place] [id number] [place] [phone] DIRECTOR: HUSSEIN COREAS MD, PHD [facility] Comments SEE NOTE [facility] Comment:This drug testing is for medical treatment only. Analysiswas performed as non-forensic testing and these resultsshould be used only by healthcare providers to renderdiagnosis or treatment, or to monitor progress of medicalconditions.LDT Notes:Confirmation tests were developed and their analyticalperformance characteristics have been determined by [employer]. It has not been cleared or approved by the FDA.This assay has been validated pursuant to the CLIAregulations and is used for clinical purposes.Healthcare Providers needing Interpretation assistance,please contact us at [phone] ( ) M-F,8am to 10pm ESTTHIS TEST PERFORMED AT:[facility] [address] [phone] DIRECTOR: JESUS SNOWDEN MD 01/12/2025 2:04 PM EST 01/12/2025 2:04 PM EST Generic External Data Provider LAB BLOOD ORDERAB LES Final Result Performing Organization Address [facility] Co de Phone Number [facility] [address] [place] [phone] * Iron And Total Iron Binding Capacity (01/12/2025 2:04 PM EST) Pathologist [facility] Iron 42 30 - 160 mcg/dL [facility] [...] ORDERAB LES Final Result Performing Organization Address [facility] [address] [place] [phone] * Actin (Smooth Muscle) Antibody (IgG) (01/12/2025 2:04 PM EST) Smooth Muscle Antibody <20 <[address] [facility] Comment:Reference Range: <20 U: Negative>or=20 [...] with AIH type 1.THIS TEST WAS PERFORMED AT:[facility] [place] [address]OIDEWPDHUSSEIN COREAS MD,PHD 01/12/2025 2:04 PM EST 01/12/2025 2:04 PM EST Generic External Data Provider LAB BLOOD ORDERAB LES Final Result Performing Organization Address [facility] Co de Phone Number [facility] [address] [place] [phone] * Ixboq-6-Qykzjsjmykr, Quantitative (01/12/2025 2:04 PM EST) Cqlfo-0-Rszpfgxx sin QN 172 83 - 199 mg/dL [facility] Comment:THIS TEST WAS PERFOR MED AT:[facility] [place] [phone] SNOWDEN MD 01/12/2025 2:04 PM EST 01/12/2025 2:04 PM EST Generic External Data Provider LAB BLOOD ORDERAB LES Final Result Performing Organization Address [facility] Phone Number [facility] [address] [place] [phone] * Hepatitis A Antibody, Total (01/12/2025 2:04 PM EST) Hepatitis A Antibody IgG REACTIVE Nonreactive [facility] Comment:The presence of IgG anti-HAV implies past HAV infection(recent or distant) or vaccination against HAV. 01/12/2025 2:04 PM EST 01/12/2025 2:04 PM EST us Generic External Data Provider LAB BLOOD ORDERAB LES Final Result Performing Organization Address [facility] Co de Phone Number [facility] [address] [place] [phone] * Tissue Transglutaminase Antibody, IgA (01/12/2025 2:04 PM EST) Transglutaminase IgA <1.0 U/mL [facility] Comment:Value Interpretatio n----- <15.0 Antibody not detected> or = 15.0 Antibody detectedTHIS TEST WAS PERFORMED AT:[facility] [address] [phone] SNOWDEN MD 01/12/2025 2:04 PM EST 01/12/2025 2:04 PM EST Generic External Data Provider LAB BLOOD ORDERAB LES Final Result Performing Organization Address City/[facility]/ZIP Co de Phone Number [facility] [address] [place] [phone] * Ceruloplasmin (01/12/2025 2:04 PM EST) Pathologist [facility] Ceruloplasmin 33 14 - 48 mg/dL [facility] Comment:THIS TEST WAS PERFOR MED AT:[facility] [address] [phone] SNOWDEN MD 01/12/2025 2:04 PM EST 01/12/2025 2:04 PM EST Generic External Data Provider LAB BLOOD ORDERAB LES Final Result Performing Organization Address City/[facility]/ZIP Co de Phone Number [facility] [address] [place] [phone] * Alpha-Fetoprotein, Tumor Marker (01/12/2025 2:04 PM EST) Pathologist [facility] Alpha Fetoprotein 4.2 ng/mL [facility] Comment:Reference Range: <6. 1The use of AFP as a tumor marker in females is not recommended.This test was performed using the Jaky Coulterchemiluminescent method. Values obtained fromdifferent assay methods cannot be usedinterchangeably. AFP levels, regardless ofvalue, should not be interpreted as absoluteevidence of the presence or absence of disease.THIS TEST WAS PERFORMED AT:[facility] [place] [id number] SNOWDEN MD 01/12/2025 2:04 PM EST 01/12/2025 2:04 PM EST Generic External Data Provider LAB BLOOD ORDERAB LES Final Result Performing Organization Address [facility]/ZIP Co de Phone Number [facility] [address] [place] [phone] * Hepatitis B surface antigen, EIA (01/12/2025 2:04 PM EST) Hepatitis B Surface Ag Negative Negative [facility] 01/12/2025 2:04 PM EST 01/12/2025 2:04 PM EST Generic External Data Provider LAB BLOOD ORDERAB LES Final Result Performing Organization Address [facility] Co de Phone Number [facility] [address] [place] [phone] * Hepatitis B Core Antibody, Total (01/12/2025 2:04 PM EST) Hepatitis B Core Antibody Nonreactive Nonreactive [facility] 01/12/2025 2:04 PM EST 01/12/2025 2:04 PM EST Generic External Data Provider LAB BLOOD ORDERAB LES Final Result Performing Organization Address [facility] Co de Phone Number [facility] [address] [place] [phone] * Liver Kidney Microsomal (LKM-1) Antibody??(IgG) (01/12/2025 2:04 PM EST) Liver Kidney Microsomal (LKM-1) Antibody IgG <=20.0 <=20.[address] [facility] Comment:Reference Range: <=2 0.0 Negative [...] patients with hepatitis Cinfection.THIS TEST WAS PERFORMED AT:[facility] [id number] [place] [address]PUSDOTSHUSSEIN COREAS MD,PHD 01/12/2025 2:04 PM EST 01/12/2025 2:04 PM EST Generic External Data Provider LAB BLOOD ORDERAB LES Final Result Performing Organization Address [facility]/ZIP Co de Phone Number [facility] [address] [place] [address] [phone] * Mitochondrial Antibody with Reflex to Titer (01/12/2025 2:04 PM EST) Mitochondrial Antibodies NEGATIVE NEGATIVE [facility] Comment:THIS TEST WAS PERFOR MED AT:[facility] [address] [phone] SNOWDEN MD Mitochondrial Ab Titer TNP [facility] 01/12/2025 2:04 PM EST 01/12/2025 2:04 PM EST us Generic External Data Provider LAB BLOOD ORDERAB LES Final Result Performing Organization Address [facility] [facility]/ZIP Co de Phone Number [facility] [address] [place] [phone] * HIV-1/2 Antigen and Antibodies, Fourth Generation, with Reflexes (01/12/2025 2:04 PM EST) HIV AB/AG Nonreactive Nonreactive [facility] Comment:HIV-1 p24 Ag and/or HIV-1/HIV-2 Ab not detected.A test result that is nonreactive does not exclude thepossibility of exposure to or infection with HIV-1 and/orHIV-2. Nonreactive results in this assay for individualswith prior exposure to HIV-1 and/or HIV-2 may be due toantigen and antibody levels that are below the limit ofdetection of this assay.The [facility] HIV Ag/Ab Combo assay result andsupplemental assay results should be interpreted inconjunction with the patient's clinical presentation,history and other laboratory results. If the results areinconsistent with clinical evidence, additional testing issuggested to confirm the result. 01/12/2025 2:0 4 PM EST 01/12/2025 2:04 PM EST Generic External Data Provider LAB BLOOD ORDERAB LES Final Result Performing Organization Address [facility] Co de Phone Number [facility] [address] [place] [address] [phone] * Hepatitis B Surface Antibody, Qualitative (01/12/2025 2:04 PM EST) ~Hepatitis B Surface Antibody NONREACTIVE Nonreactive [facility] Comment:Nonreactive: < 8.00 mIU/mL 01/12/2025 2:04 PM EST 01/12/2025 2:04 PM EST Generic External Data Provider LAB BLOOD ORDERAB LES Final Result Performing Organization Address [facility] Co de Phone Number [facility] [address] [place] [address] [phone] * Prothrombin Time-INR (01/12/2025 2:04 PM [...] Final Result [facility] [address] [place] [phone] * (ABNORMAL) CBC (01/12/2025 2:04 PM [...] ORDERAB LES Final Result Performing Organization Address City/[facility]/ZIP Co de Phone Number [facility] [address] [place] [address] [phone] * [place] Screen,IFA, with Reflex to Titer and Pattern (01/12/2025 2:04 PM EST) Anti Nuclear Antibody Screen NEGATIVE NEGATIVE [facility] Comment:[place] IFA is a first [...] clinicallysuspected inflammatory myopathies.AC-0: NegativeInternational Consensus on [place] Patterns(https://doi.org/10.1515/hlud-1283-3731)For additional information, please refer tohttp://education.CloudTags/faq/WUG863(This link is being provided for informational/educational purposes only.)THIS TEST WAS PERFORMED AT:[facility] [place] [phone] SNOWDEN MD [place] Titer [facility] [place] Pattern [facility] [place] TITER 2 (REF LAB) [facility] [place] Pattern 2 [facility] [place] TITER 3 [facility] [place] PATTERN 3 [facility] 01/12/2025 2:04 PM EST 01/12/2025 2:04 PM EST us Generic External Data Provider LAB BLOOD ORDERAB LES Final Result Performing Organization Address City/[facility]/ZIP Co de Phone Number [facility] [address] [place] [phone] [phone] * (ABNORMAL) Hemoglobin A1c (01/12/2025 2:04 PM EST) Hemoglobin A1c 8.3(H) <6.0 % [facility] Comment:Hemoglobin A1C Refer ence Range [...] asaverage glucose, using the formula of the J5P-YsjanurEwinuvt Glucose study (ADAG), Diabetes Care, Vol.31,#8,2007 01/12/2025 2:04 PM EST 01/12/2025 2:04 PM EST Generic External Data Provider LAB BLOOD ORDERAB LES Final Result Performing Organization Address City/[facility]/ZIP Co de Phone Number [facility] [address] [place] [phone] * (ABNORMAL) Gamma Glutamyl Transferase (GGT) (01/12/2025 2:04 PM EST) Pathologist [facility] Gamma Glutamyl Transpeptidase 169(H) 7 - 33 U/L [facility] 01/12/2025 2:04 PM EST 01/12/2025 2:04 PM EST Generic External Data Provider LAB BLOOD ORDERAB LES Final Result Performing Organization Address [facility] Co de Phone Number [facility] [address] [place] [phone] * (ABNORMAL) Immunoglobulin A (01/12/2025 2:04 PM EST) Immunoglobulin A 383(A) 70 - 320 mg/dL [facility] Comment:THIS TEST WAS PERFOR MED AT:[facility] [place] [phone] SNOWDEN MD 01/12/2025 2:04 PM EST 01/12/2025 2:04 PM EST Generic External Data Provider LAB BLOOD ORDERAB LES Final Result Performing Organization Address [facility] Co de Phone Number [facility] [address] [place] [phone] * Immunoglobulin G (01/12/2025 2:04 PM EST) Immunoglobulin G 1439 600 - 1540 mg/dL [facility] Comment:THIS TEST WAS PERFOR MED AT:[facility] [place] [phone] SNOWDEN MD 01/12/2025 2:04 PM EST 01/12/2025 2:04 PM EST Generic External Data Provider LAB BLOOD ORDERAB LES Final Result Performing Organization Address [facility] Co mi Phone Number [facility] [address] [place] [address] [phone] * Ferritin (01/12/2025 2:04 PM EST) Ferritin 35 10 - 250 ng/mL [facility] 01/12/2025 2:04 PM EST 01/12/2025 2:04 PM EST Generic External Data Provider LAB BLOOD ORDERAB LES Final Result Performing Organization Address [facility] Phone Number [facility] [address] [place] [address] [phone] * (ABNORMAL) Lipid Panel, Standard (01/12/2025 2:04 PM EST) Triglycerides 271(H) <150 mg/dL [facility] Comment:Desirable Triglyceri de: less than [...] 190 mg/dL HDL Cholesterol 43 >40 mg/dL [facility] Comment:Desirable HDL: great er than 40 mg/dL Note: This HDL assay may give artificially low results in patients with liver disease. 01/12/2025 2:04 PM EST 01/12/2025 2:04 PM EST us Generic External Data Provider LAB BLOOD ORDERAB LES Final Result [facility] [address] [place] [phone] [phone] * (ABNORMAL) Comprehensive Metabolic Panel (01/12/2025 [...] Kidney Disea se: Estimated GFR < 60 mL/min/1.35r6Hsgftz Kidney Disease: Estimated GFR < 15 mL/min/1.73m2 [...] ORDERAB LES Final Result Performing Organization Address City/[facility]/ZIP Co de Phone Number [facility] [address] [place] [address] [phone] * ALBUMIN, RANDOM URINE W/CREATININE (12/19/2021 [...] Aparicio MD LAB URINE ORDERABLES Final Result Performing Organization Address City/[facility]/ZIP Co de Phone Number [facility] [address] [place], [place] [address] from Last 3 Months or Most Recently Relevant to Health Maintenance Insurance MEDICARE [facility] Care Teams Harpooner Relationship Specialty Start Date End Date Renan Lawson MD [address] [place] [phone] PCP - General Internal Medicine 12/10/21 Richelle Albarado, PharmD [address] [place] [phone] Pharmacist Internal Medicine 10/25/24
--- OUTSIDE RECORDS SUMMARY | 2025-03-29 14:09 | XMS_ITS | Encounter Summary ---
Author Organization [facility] [employer] [facility] Address [address] [facility] [address] [place] [address] Care Team Providers Care System Manager Name Role Phone Renan Lawson MD Primary Care Provide r Edilberto Barahona PharmD Unavailable [phone] Richelle Albarado PharmD Unavailable [phone] Encounter Details Date Type Department Care Team ([facility] Contact Info) Description 11/14/2022 Telephone [facility] [address] [place], [place] [phone] Renan Lawson MD [address] [place] [address] [phone] Social History Tobacco Use Types Packs/Day Years [...] Upcoming Encounters Date Type Department Care Team ([facility] Contact Info) Description 05/11/2025 1:00 PM EDT Office Visit [facility] [address] [place] [address] [phone] Renan Lawson MD [address] [place] [phone] documented as of this encounter Visit Diagnoses Not on filedocumented in this encounter Care Teams System Manager Relationship Specialty Start Date End Date Renan Lawson MD [address] [place] [address] [phone] PCP - General Internal Medicine 12/10/21 Edilberto Barahona PharmD [address] [place] [address] [phone] Pharmacist Internal Medicine 07/14/23 10/24/24 Richelle Albarado, KyD [address] [place] [address] [phone] Pharmacist Internal Medicine 10/25/24 documented as of this encounter
--- OUTSIDE RECORDS SUMMARY | 2025-03-29 14:09 | XMS_ITS | Encounter Summary ---
Author Organization [employer] [facility] Address [address] [place] [address] Care Team Providers Care Electrical Accessories Assembler Name Role Phone Renan Lawson MD Primary Care Provide r Edilberto Barahona PharmD Unavailable [phone] Richelle Albarado PharmD Unavailable [phone] Encounter Details Date Type Department Care Team (Late st Contact Info) Description 01/13/2023 Abstract [facility] [address] [place], [place] [phone] Renan Lawson MD [address] [place], [place] [phone] Social History Tobacco Use Types Packs/Day Years [...] Description 05/11/2025 1:00 PM EDT Office Visit [facility] [address] [facility] [place] [phone] [place] [address] documented as of this encounter Visit Diagnoses Not on filedocumented in this encounter Additional Health Concerns Assessment Noted Time PHQ-9 Depression Total Score: 0 12/02/19 10:15 AM EST documented as of this encounter Care Teams Electrical Accessories Assembler Relationship Specialty Start Date End Date Renan Lawson MD [facility] [place] [address] PCP - General Internal Medicine 12/10/21 Edilberto Barahona, KyD [address] [place] [phone] Pharmacist Internal Medicine 07/14/23 10/24/24 Richelle Albarado, KyD [address] [place] [address] [phone] Pharmacist Internal Medicine 10/25/24 documented as of this encounter
--- OUTSIDE RECORDS SUMMARY | 2025-03-29 14:10 | XMS_ITS | Encounter Summary ---
Author Organization [employer] Address [address] [place] [address] Care Team Providers Care Superintendent Local Name Role Phone Renan Lawson MD Primary Care Provide r Edilberto Barahona PharmD Unavailable [phone] Richelle Albarado PharmD Unavailable [phone] Reason for Visit * Reason Comments Med Refill Encounter Details Date Type Department Care Team ([facility] st Contact Info) Description 08/26/2024 Refill [facility] [address] [place], [place] [phone] Renan Lawson MD [address] [place], [place] [phone] Social History Tobacco Use Types Packs/Day Years [...] PM EDT Office Visit [facility] [address] [place] [address] Renan Lawson MD [address] [place] [address] documented as of this encounter Goals Goal Patient Goal Type Associated Problems Recent Progress Patient-Stated? Author Blood Pressure < 140/90 Blood Pressure 144/90(2024 10:03 AM EDT) No Edilberto Barahona, PharmPercy Blood Pressure < [...] as of this encounter Care Teams Superintendent Local Relationship Specialty Start Date End Date Renan Lawson MD [address] [place] [phone] PCP - General Internal Medicine 12/10/21 Edilberto Barahona, PharmD [address] [place] [address] Pharmacist Internal Medicine 07/14/23 10/24/24 Richelle Albarado, KyD [address] [place] [address] Pharmacist Internal Medicine 10/25/24 documented as of this encounter
== END 2025-03-29 14:09 | disposition home or self-care (01) ==
LOC: HO.HGI 13:37
PROVIDERS: PCP Internal Medicine; Visit Provider Internal Medicine
DX: R74.01 Elevation of levels of liver transaminase levels (principal); R93.2 Abnormal findings on diagnostic imaging of liver and biliary tract; K22.70 Barrett's esophagus without dysplasia; E11.9 Type 2 diabetes mellitus without complications; E66.9 Obesity, unspecified
CPT/HCPCS: 99214; G2211

== ENCOUNTER → 2025-03-29 13:34 | Outpatient (BNVA) | payer MEDICARE, MEDICAID, SELFPAY | PROVIDERS: PCP Internal Medicine; Visit Provider Internal Medicine | DX: Z12.11 Encounter for screening for malignant neoplasm of colon (principal); R93.2 Abnormal findings on diagnostic imaging of liver and biliary tract; E11.9 Type 2 diabetes mellitus without complications; E66.9 Obesity, unspecified; R79.89 Other specified abnormal findings of blood chemistry; K22.70 Barrett's esophagus without dysplasia; Z68.35 Body mass index [BMI] 35.0-35.9, adult | CPT/HCPCS: 99212 ==

== ENCOUNTER 2025-04-11 14:49 | Outpatient (AMB) | payer MEDICARE, MEDICAID, SELFPAY ==
[2025-04-11 14:53] VITALS: BP 150/80; PULSE 95; O2SAT 96; BMI 34.9
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
--- OUTSIDE RECORDS SUMMARY | 2025-04-11 16:33 | XMS_ITS | Encounter Summary ---
Author Organization [facility] Address [address] [place] [address] Care Team Providers Care Business Services Sales Agent Name Role Phone Renan Lawson MD Primary Care Provide r Edilberto Barahona PharmD Unavailable +[phone] Richelle Albarado PharmD Unavailable [phone] Encounter Details Date Type Department Care Team (Late st Contact Info) Description 01/13/[address] [facility] [address] [place], [place] [phone] Renan Lawson MD [address] [place], [place] [phone] Social History Tobacco Use Types Packs/Day Years [...] Description 05/11/2025 1:00 PM EDT Office Visit [facility] [place] [address] Renan Lawson MD [facility] [place] [address] 06/22/2025 11:00 AM EDT Medication Management [facility] [place] [address] Richelle Albarado PharmD [facility] [place] [address] documented as of this encounter Visit Diagnoses Not on filedocumented in this encounter Additional Health Concerns Assessment Noted Time PHQ-9 Depression Total Score: 0 12/02/19 10:15 AM EST documented as of this encounter Care Teams Business Services Sales Agent Relationship Specialty Start Date End Date Renan Lawson MD [facility] [place] [address] PCP - General Internal Medicine 12/10/21 Edilberto Barahona PharmD [facility] [place] [address] Pharmacist Internal Medicine 07/14/23 10/24/24 Richelle Albarado PharmD [facility] [place] [address] Pharmacist Internal Medicine 10/25/24 documented as of this encounter
== END 2025-04-11 15:18 | disposition home or self-care (01) ==
LOC: HO.HPS 14:49
PROVIDERS: PCP Internal Medicine; Visit Provider Hospitalist
DX: J45.40 Moderate persistent asthma, uncomplicated (principal); J30.9 Allergic rhinitis, unspecified; K21.00 Gastro-esophageal reflux disease with esophagitis, without bleeding; J98.4 Other disorders of lung; G47.33 Obstructive sleep apnea (adult) (pediatric); Z99.89 Dependence on other enabling machines and devices
CPT/HCPCS: 99214

== ENCOUNTER → 2025-04-11 14:49 | Outpatient (BNVA) | payer MEDICARE, MEDICAID, SELFPAY | PROVIDERS: PCP Internal Medicine; Visit Provider Hospitalist | DX: J45.40 Moderate persistent asthma, uncomplicated (principal); J30.9 Allergic rhinitis, unspecified; J98.4 Other disorders of lung; G47.33 Obstructive sleep apnea (adult) (pediatric); K21.00 Gastro-esophageal reflux disease with esophagitis, without bleeding; Z99.89 Dependence on other enabling machines and devices | CPT/HCPCS: 99212 ==

== ENCOUNTER 2025-05-10 14:31 | Outpatient (REF) | payer MEDICARE, MEDICAID, SELFPAY ==
--- OUTSIDE RECORDS SUMMARY | 2024-01-28 07:00 | XMS_ITS ---
Author Organization [facility] Address [address] [place] [address] Care Team Providers Care Key Account Coordinator Name Role Phone Deandre Aparicio MD, Renan Primary Care Provide Eric Faust [phone] REASON FOR VISIT Patient presents today for a COLON SCREENING Encounters Encounter Location Date Provider Diagnosis [facility] [address] [place] [phone] 01/28/2024 Eric Emmanuel Plan Of Treatment No Information Progress Notes * COLE BOWLESDOB: 6 (69 yo F)Acc No.[id number]:01/28/2024 Progress Notes Patient: COLE GUAMAN Provider: Adelaida Emmanuel MD :1955 A ge:68 Y S ex:Female Date:01/28/2024 Address:[address] [place] [address] [address] , [id number] Pcp:Renan chavez MD Subjective: * Chief Complaints: [...] Date: 01/28/2024 Generated for Rebecca valdez/Marco/eTransmitting on: 05/10/2025 03:02 PM EDT
--- OUTSIDE RECORDS SUMMARY | 2025-05-10 15:02 | XMS_ITS | Encounter Summary ---
Author Organization [facility] Address [address] [place] [address] Care Team Providers Care Sales Engineer Account Manager Name Role Phone Renan Lawson MD Primary Care Provide r Edilberto Barahona PharmD Unavailable [phone] Richelle Albarado PharmD Unavailable [phone] Encounter Details Date Type Department Care Team (Late st Contact Info) Description 01/13/2023 Abstract [facility] [address] [place], [place] [phone] Renan Lawson MD [address] [place], [place] [phone] Social History Tobacco Use Types Packs/Day Years [...] Description 05/11/2025 1:00 PM EDT Office Visit [facility] [place] [address] Renan Lawson MD [facility] [place] [address] 06/22/2025 11:00 AM EDT Medication Management [facility] [place] [address] Richelle Albarado PharmD [facility] [place] [address] documented as of this encounter Visit Diagnoses Not on filedocumented in this encounter Additional Health Concerns Assessment Noted Time PHQ-9 Depression Total Score: 0 12/02/19 10:15 AM EST documented as of this encounter Care Teams Sales Engineer Account Manager Relationship Specialty Start Date End Date Renan Lawson MD [facility] [place] [address] PCP - General Internal Medicine 12/10/21 Edilberto Barahona PharmD [facility] [place] [address] Pharmacist Internal Medicine 07/14/23 10/24/24 Richelle Albarado PharmD [facility] [place] [address] Pharmacist Internal Medicine 10/25/24 documented as of this encounter
[2025-05-10 15:44] LABS: Appearance Urine Cloudy; Glucose Urine UA Negative (Negative); PH 6.0 (5.0-9.0); Specific Gravity - Urine 1.015 (1.005-1.025); UMIC TRIGGER UA YES; UMIC TRIGGER UACC YES
[2025-05-10 15:49] LABS: UACC Culture Trigger YES
[2025-05-10 16:08] LABS: Anion Gap 13 (12-20); Blood Urea Nitrogen 11 mg/dL (9-16); Calcium 8.9 mg/dL (8.4-10.2); Carbon Dioxide 24 mmol/L (22-29); Chloride 107 mmol/L (96-108); Estimated Glomerular Filt Rate > 60; Potassium 3.8 mmol/L (3.3-5.1); Sodium 140 mmol/L (135-145)
== END 2025-05-10 14:32 | disposition home or self-care (01) ==
LOC: HO.LAB 14:31
PROVIDERS: Internal Medicine; PCP Internal Medicine; Visit Provider Nurse Practitioner Family
DX: R82.90 Unspecified abnormal findings in urine (principal); N39.0 Urinary tract infection, site not specified; I25.10 Atherosclerotic heart disease of native coronary artery without angina pectoris
CPT/HCPCS: 36415; 80048; 81001; 87086; 87088; 87186

== ENCOUNTER 2025-05-19 08:06 | Outpatient (REF) | payer MEDICARE, MEDICAID, SELFPAY ==
--- NOTE | ~2025-05-19 | XR_ITS ---
EXAMINATION: XR KNEE 3 VIEWS BILATERAL HISTORY: pain COMPARISON: Comparison is made with the prior examination of the right knee dated 04/17/2023 and the prior examination of the left knee dated 12/03/2022. FINDINGS: Standing AP views of both knees and additional lateral and sunrise patellar views of the bilateral knees are submitted. Osseous mineralization is normal. There is no fracture or dislocation. On the right, there is mild narrowing of the patellofemoral compartment. On the left, there is moderate osteoarthritis of the medial compartment with joint space narrowing and osteophyte formation and mild narrowing of the patellofemoral compartment. There is no joint effusion. XR/XR Knee Lino 3V IMPRESSION: Degenerative changes of the bilateral knees as described. Electronically signed by: Eric Cooper MD 05/19/2025 08:54 AM EDT
== END 2025-05-19 08:07 | disposition home or self-care (01) ==
LOC: HO.HOSX 08:06
PROVIDERS: PCP Internal Medicine; Visit Provider Physician Assistant
DX: M17.12 Unilateral primary osteoarthritis, left knee (principal); M23.8X1 Other internal derangements of right knee
CPT/HCPCS: 20610; 73562; 99212; J1010; J2003

== ENCOUNTER 2025-05-19 08:06 | Outpatient (AMB) | payer MEDICARE, MEDICAID, SELFPAY ==
--- OUTSIDE RECORDS SUMMARY | 2024-01-28 07:00 | XMS_ITS ---
Author Organization [facility] Address [address] [place] [address] Care Team Providers Care Testing Consultant Name Role Phone Deandre Aparicio MD, Renan Primary Care Provide Eric Faust [phone] REASON FOR VISIT Patient presents today for a COLON SCREENING Encounters Encounter Location Date Provider Diagnosis [facility] [address] [place] [phone] 01/28/2024 Eric Emmanuel Plan Of Treatment No Information Progress Notes * COLE BOWLESDOB: 6 (69 yo F)Acc No.[id number]:01/28/2024 Progress Notes Patient: COLE GUAMAN Provider: Adelaida Emmanuel MD :1955 A ge:68 Y S ex:Female Date:01/28/2024 Address:[address] [place] [address] [address] , [id number] Pcp:Renan chavez MD Subjective: * Chief Complaints: [...] Date: 01/28/2024 Generated for Rebecca valdez/Marco/eTransmitting on: 0 05/19/2025 08:09 AM EDT
--- OUTSIDE RECORDS SUMMARY | 2025-05-19 08:09 | XMS_ITS | Encounter Summary ---
Author Organization [employer] [facility] Address [address] [place] [address] Care Team Providers Care Crown Blocker Name Role Phone Renan Lawson MD Primary Care Provide r Edilberto Barahona PharmD Unavailable [phone] Richelle Albarado PharmD Unavailable [phone] Encounter Details Date Type Department Care Team (Late st Contact Info) Description 01/13/2023 Abstract [facility]INE [address] [place], [place] [phone] Renan Lawson MD [address] [place], [place] [phone] Social History Tobacco Use Types Packs/Day Years [...] Care Team (Late st Contact Info) Description 06/22/2025 11:00 AM EDT Medication Management [facility]INE [address] [place] [address] Richelle Albarado PharmD [address] [place] [address] 08/10/2025 1:15 PM EDT Office Visit [facility] [address] [place] [address] [place] [address] documented as of this encounter Visit Diagnoses Not on filedocumented in this encounter Additional Health Concerns Assessment Noted Time PHQ-9 Depression Total Score: 0 12/02/19 10:15 AM EST documented as of this encounter Care Teams Crown Blocker Relationship Specialty Start Date End Date Renan Lawson MD [address] [place] [address] PCP - General Internal Medicine 12/10/21 Edilberto Barahona PharmD [address] [place] [address] Pharmacist Internal Medicine 07/14/23 10/24/24 Richelle Albarado PharmD [address] [place] [address] Pharmacist Internal Medicine 10/25/24 documented as of this encounter
--- NOTE | 2025-05-19 08:19 | A.OFFVIS_ITS ---
Vital Signs 05/19/25 08:20 Height 5 ft 6 in Weight 216 lb BMI 34.9 Intake Visit Reasons: OV-B/L knee pain, right knee injection 12/03/22 Intake Note: Naa is a 69 year old female who presents for a follow up on bilateral knee pain. Patient was seen on 12/03/22 and had a right knee injection. Today patient reports her last injection in her right knee gave her about a year of relief and then her pain started to slowly come back. Patient is wanting to repeat injection in the right knee. Braid Pattern Setter Required: Yes Braid Pattern Setter Language: Field Marketer Services: Braid Pattern Setter Present (Maya ([id number])) Allergies bee pollen (BEE STINGS) Allergy (Unknown, Verified 05/19/25 08:20) ANAPHYLAXIS morphine (MORPHINE) Allergy (Unknown, Verified 05/19/25 08:20) ITCHING HPI HPI OV-B/L knee pain, right knee injection 12/03/22: Details: 69-year-old female returns to the office today for bilateral knee pain. Right knee is worse than the left at the moment. Her last injection was in 2022 which provided significant relief. She is diabetic and states her sugars are well controlled. [facility] Medical History Periumbilical abdominal pain EDWIN on CPAP Chronic restrictive lung disease Chronic allergic rhinitis Asthma Other and unspecified hyperlipidemia Essential hypertension Type 2 diabetes mellitus with unspecified complications Atherosclerotic cardiovascular disease Surgical History History of esophagogastroduodenoscopy (EGD) Hx of colonoscopy Family History Mother HTN (hypertension) Heart disease Asthma Maternal Aunt Breast cancer Maternal Aunt Tumor Maternal Aunt Cancer Social History Household Members: Spouse and Family Household Members Other:: 4 household members Housing: Apartment Do you presently have visiting nurse or other home services: No Alcohol intake: never Patient Tobacco Use Status: Never used Tobacco service: No Review of Systems Const All systems reviewed & are unremarkable except as noted in HPI and below Physical Exam Vital Signs: BMI result Body Mass Index 34.9 Extrem Other: Bilateral knees are to inspection she has diffuse medial and lateral joint line tenderness. full range of motion crepitus. Neurovascularly intact. Office Procedures AMB Joint Injection/Aspiration Joint Injection/Aspiration Primary Site: right knee Prep: site was prepped using aseptic technique, ethochloride spray was applied and injection warnings given Injected: 40 mg of, DepoMedrol, with 8 mL of, 1% plain lidocaine and in the joint Approach Used: anterolateral Procedure: The patient tolerated the procedure well and there was some relief with the local anesthesia Coding 04973 - Glenohumeral/Tronchanteric Bursa/Intraarticular Procedure code (CPT) selection complete Results Reviewed Results Reviewed: X-rays of both knees obtained in the office today and reviewed by me show moderate arthritis and patellofemoral arthritis Assessment & Plan Assessment & Plan (1) Patellofemoral arthritis: Comment: Bilateral Code(s): M17.10 - Unilateral primary osteoarthritis, unspecified knee Category: Medical Plan: We discussed options today which include steroid injections. The right knee was injected today which the patient tolerates well. She will see me back in 2 weeks for left knee injection. We also discussed their diabetes and the effect the steroid can have on thier blood glucose levels; therefore, they will continue to monitor these very closely over the next 72 hours Orders: Orders XR Knee Lino 3V Today M25.561 - Pain in right knee, M25.562 - Pain in left knee Coding Level of Care Code Est Pt Level 3 (69501) Complex EM visit Add On G2211 Diagnoses Patellofemoral arthritis M17.10 CPT Codes Coding - Joint 7: 20766 - Glenohumeral/Tronchanteric Bursa/Intraarticular ([id number])
[2025-05-19 08:20] VITALS: BMI 34.9
== END 2025-05-19 08:59 | disposition home or self-care (01) ==
LOC: HO.HOS 08:07
PROVIDERS: PCP Internal Medicine; Visit Provider Physician Assistant
DX: M17.0 Bilateral primary osteoarthritis of knee (principal); E11.9 Type 2 diabetes mellitus without complications
CPT/HCPCS: 20610; 99213

== ENCOUNTER → 2025-05-19 08:30 | Outpatient (BNV) | payer MEDICARE, MEDICAID, SELFPAY | PROVIDERS: PCP Internal Medicine; Visit Provider Radiology Diagnostic Radiology | DX: M17.0 Bilateral primary osteoarthritis of knee (principal) | CPT/HCPCS: 73562 ==

== ENCOUNTER 2025-06-09 13:26 | Outpatient (AMB) | payer MEDICARE, MEDICAID, SELFPAY ==
--- OUTSIDE RECORDS SUMMARY | 2025-06-09 13:32 | XMS_ITS | Encounter Summary ---
Author Organization [employer] [facility] Address [address] [place] [address] Care Team Providers Care Dairy Equipment Mechanic Name Role Phone Renan Lawson MD Primary Care Provide r Edilberto Barahona PharmD Unavailable [phone] Richelle Albarado PharmD Unavailable [phone] Encounter Details Date Type Department Care Team (Late st Contact Info) Description 01/13/2023 Abstract [facility] [address] [place], [place] [phone] Renan Lawson MD [address] [place], [place] [phone] Social History Tobacco Use Types Packs/Day Years [...] Description 06/22/2025 11:00 AM EDT Medication Management [facility] [address] [place] [address] Richelle Albarado PharmD [address] [place] [address] 08/10/2025 1:15 PM EDT Office Visit [facility] [address] [place] [address] [place] [address] documented as of this encounter Visit Diagnoses Not on filedocumented in this encounter Additional Health Concerns Assessment Noted Time PHQ-9 Depression Total Score: 0 12/02/19 10:15 AM EST documented as of this encounter Care Teams Dairy Equipment Mechanic Relationship Specialty Start Date End Date Renan Lawson MD [address] [place] [address] PCP - General Internal Medicine 12/10/21 Edilberto Barahona PharmD [address] [place] [address] Pharmacist Internal Medicine 07/14/23 10/24/24 Richelle Albarado PharmD [address] [place] [address] Pharmacist Internal Medicine 10/25/24 documented as of this encounter
[2025-06-09 13:36] VITALS: BMI 34.9
--- NOTE | 2025-06-09 13:36 | MHC.OFFVIS ---
Vital Signs 06/09/25 13:36 Height 5 ft 6 in Weight 216 lb BMI 34.9 Intake Visit Reasons: INJ- left knee injection 12/03/22 Intake Note: Naa is a 69 year old female who presents today for a left knee injection. At her last visit on 05/19/23, she was given a left knee injection. Patient reports she is having a constant stabbing pain in her left knee. Allergies bee pollen (BEE STINGS) Allergy (Unknown, Verified 06/09/25 13:44) ANAPHYLAXIS morphine (MORPHINE) Allergy (Unknown, Verified 06/09/25 13:44) ITCHING Medication List - Last Reconciled 06/09/25 by Constantin Milian PA-C albuterol sulfate 2.5 mg (3 mL) inhalation Q4H PRN 30 days albuterol sulfate 90 mcg/actuation (Ventolin HFA) 2 puffs PO QID PRN alirocumab (Praluent Pen) 75 mg subcut Q2W amitriptyline 200 mg PO BEDTIME amlodipine 10 mg PO DAILY 90 days ascorbic acid (vitamin C) 1 g PO DAILY 90 days aspirin 81 mg PO DAILY atorvastatin 80 mg PO DAILY benzonatate 200 mg PO BID PRN 30 days blood sugar diagnostic (FreeStyle Lite Strips) Test four times a day or as directed. blood-glucose meter (FreeStyle Lite Meter kit) As Directed xwlkexprdk-nzccbwqxssyai-qrbt 50-325-40 mg 1 tab PO TID PRN cetirizine 10 mg PO BEDTIME cholecalciferol (vitamin D3) 50 mcg PO DAILY clonazepam 1 mg PO BID PRN cyanocobalamin (vitamin B-12) 1,000 mcg PO DAILY cyclobenzaprine 5 mg PO TID PRN 7 days dulaglutide (Trulicity) mg subcut dulaglutide (Trulicity) mg subcut epinephrine 3 mg IM DIRECTED estradiol 0.01%(0.1mg/gram) (Estrace) 1 g vaginal 3XW 90 days ezetimibe (Zetia) 10 mg PO DAILY 90 days fluticasone propionate 50 mcg/actuation 2 sprays intranasal DAILY insulin glargine (Lantus Solostar U-100 Insulin) 40 units (0.4 mL) subcut DAILY insulin lispro (Humalog KwikPen (U-100) Insulin) 1 sliding scale dose subcut QIDACHS lancets (FreeStyle Lancets) Test four times a day or as directed. lancets (TRUEplus Lancets) As directed lisinopril 10 mg PO DAILY metformin ER 1,000 mg PO QAM methenamine hippurate 1 g PO DAILY 90 days metoclopramide HCl 5 mg PO TID mirtazapine 45 mg PO BEDTIME nebulizers As directed nitroglycerin 0.4 mg sublingual Q5M PRN omeprazole 40 mg PO BID pen needle, diabetic Use four times a day or as directed. pregabalin 200 mg PO BID sennosides (senna) 17.2 mg (2 x 8.6 mg) PO BEDTIME 30 days simethicone 180 mg PO QID PRN sulfamethoxazole-trimethoprim 800-160 mg (Bactrim DS) 1 tab PO BID 10 days topiramate 100 mg PO BID trazodone 100 mg PO BEDTIME venlafaxine ER 37.5 mg PO DAILY HPI HPI INJ- left knee injection 12/03/22: Details: 69-year-old female returns to the office today for left knee pain. She states she was recently in [place] when she was getting out of the car she fell and injured the left knee. She has discomfort along the anterior portion of the knee with stairs and prolonged standing. [facility] Medical History Periumbilical abdominal pain EDWIN on CPAP Chronic restrictive lung disease Chronic allergic rhinitis Asthma Other and unspecified hyperlipidemia Essential hypertension Type 2 diabetes mellitus with unspecified complications Atherosclerotic cardiovascular disease Surgical History History of esophagogastroduodenoscopy (EGD) Hx of colonoscopy Family History Mother HTN (hypertension) Heart disease Asthma Maternal Aunt Breast cancer Maternal Aunt Tumor Maternal Aunt Cancer Social History Household Members: Spouse and Family Household Members Other:: 4 household members Housing: Apartment Do you presently have visiting nurse or other home services: No Alcohol intake: never Patient Tobacco Use Status: Never used Tobacco service: No Review of Systems Const All systems reviewed & are unremarkable except as noted in HPI and below Physical Exam Vital Signs: BMI result Body Mass Index 34.9 Extrem Other: Left knees are to inspection she has diffuse medial and lateral joint line tenderness. full range of motion crepitus. Neurovascularly intact. Office Procedures AMB Joint Injection/Aspiration Joint Injection/Aspiration Primary Site: left knee Prep: site was prepped using aseptic technique, ethochloride spray was applied and injection warnings given Injected: 40 mg of, DepoMedrol, with 8 mL of, 1% plain lidocaine and in the joint Approach Used: anterolateral Procedure: The patient tolerated the procedure well and there was some relief with the local anesthesia Coding 48544 - Glenohumeral/Tronchanteric Bursa/Intraarticular Procedure code (CPT) selection complete Assessment & Plan Assessment & Plan (1) Patellofemoral arthritis: Comment: Bilateral Code(s): M17.10 - Unilateral primary osteoarthritis, unspecified knee Category: Medical Plan: We discussed options today, which include steroid injection. The patient did consent to move forward with the left knee injection, which was tolerated well.? I recommended rest, ice and elevation and OTC antiinflammatories prn for discomfort. If symptoms persist over the next 6-8 weeks, they will contact our office, otherwise, prn We also discussed their diabetes and the effect the steroid can have on thier blood glucose levels; therefore, they will continue to monitor these very closely over the next 72 hours Coding Level of Care Code Est Pt Level 3 (48721) Complex EM visit Add On G2211 Diagnoses Patellofemoral arthritis M17.10 CPT Codes Coding - Joint 7: 06629 - Glenohumeral/Tronchanteric Bursa/Intraarticular ([id number])
== END 2025-06-09 14:27 | disposition home or self-care (01) ==
LOC: HO.HOS 13:27
PROVIDERS: PCP Internal Medicine; Visit Provider Physician Assistant
DX: M17.12 Unilateral primary osteoarthritis, left knee (principal)
CPT/HCPCS: 20610; 99213

== ENCOUNTER → 2025-06-09 13:26 | Outpatient (BNVA) | payer MEDICARE, MEDICAID, SELFPAY | PROVIDERS: PCP Internal Medicine; Visit Provider Physician Assistant | DX: M17.12 Unilateral primary osteoarthritis, left knee (principal) | CPT/HCPCS: 20610; 99212; J1010; J2003 ==

== ENCOUNTER 2025-06-22 11:33 | Outpatient (REF) | payer MEDICARE, MEDICAID, SELFPAY ==
--- OUTSIDE RECORDS SUMMARY | 2024-01-28 07:00 | XMS_ITS ---
Author Organization [facility] Address [address] [place] [address] Care Team Providers Care Poultry Farmer Name Role Phone Deandre Aparicio MD, Renan Primary Care Provide Eric Faust [phone] REASON FOR VISIT Patient presents today for a COLON SCREENING Encounters Encounter Location Date Provider Diagnosis [facility] [address] [place] [phone] 01/28/2024 Eric Emmanuel Plan Of Treatment No Information Progress Notes * COLE BOWLESDOB: 6 (69 yo F)Acc No.[id number]:01/28/2024 Progress Notes Patient: COLE GUAMAN Provider: Adelaida Emmanuel MD :1955 A ge:68 Y S ex:Female Date:01/28/2024 Address:[address] [place] [address] [address] , [id number] Pcp:Renan chavez MD Subjective: * Chief Complaints: [...] Pending * Provider: Adelaida Emmanuel MD Date: 0 01/28/2024 Generated for Rebecca valdez/Marco/eTransmitting on: 0 06/22/2025 09:39 AM EDT
--- OUTSIDE RECORDS SUMMARY | 2025-06-22 12:39 | XMS_ITS | Encounter Summary ---
Author Organization [facility] Address [address] [place] [address] Care Team Providers Care Dot Compliance Specialist Name Role Phone Renan Lawson MD Primary Care Provide r Edilberto Barahona PharmD Unavailable [phone] Richelle Albarado PharmD Unavailable [phone] Encounter Details Date Type Department Care Team (Late st Contact Info) Description 01/13/2023 Abstract [facility]ICINE [address] [place], [place] [phone] Renan Lawson MD [address] [place], [place] [phone] Social History Tobacco Use Types Packs/Day Years [...] Care Team (Late st Contact Info) Description 08/10/2025 1:15 PM EDT Office Visit [facility] [place] [address] [place] [address] 09/25/2025 2:00 PM EST Medication Management [facility] [place] [address] [place]helle [place] [address] documented as of this encounter Visit Diagnoses Not on filedocumented in this encounter Additional Health Concerns Assessment Noted Time PHQ-9 Depression Total Score: 0 12/02/19 10:15 AM EST documented as of this encounter Care Teams Dot Compliance Specialist Relationship Specialty Start Date End [place] [address] PCP - General Internal Medicine 12/10/21 Edilberto [place] [address] Pharmacist Internal Medicine 07/14/23 10/24/24 Richelle [place] [address] Pharmacist Internal Medicine 10/25/24 documented as of this encounter
[2025-06-22 13:40] LABS: MANUAL DIFF FLAG NO
[2025-06-22 13:44] LABS: Hematocrit 38.9 % (37.0-47.0); Hemoglobin 11.9 g/dl (12.0-16.0); Imm Gran Abs Auto 0.05 X10*3/uL (0.00-0.03); Imm Gran Pct Auto 0.4 % (0.0-0.4); Lymphocytes Absolute Auto 3.7 X10*3/uL (1.2-4.9); Mean Corpuscular HGB Conc 30.6 g/dl (31.0-35.0); Mean Corpuscular Hemoglobin 25.5 pg (27.0-33.0); Mean Corpuscular Volume 83.5 fL (80.0-98.0); NRBC Abs Auto 0.000 X10*3/uL (0.0-0.012); NRBC Pct Auto 0.0 /100WBC (0.0-0.2); Platelet Count 274 X10*3/uL (160-400); Red Blood Count 4.66 X10*6/uL (4.20-5.50); White Blood Count 12.8 X10*3/uL (4.8-10.8)
[2025-06-22 14:04] LABS: Alanine Aminotransferase 27 U/L (0-31); Albumin Level 4.3 g/dL (3.5-5.0); Alkaline Phosphatase 95 U/L (39-117); Anion Gap 14 (12-20); Aspartate Amino Transferase 29 U/L (5-31); Blood Urea Nitrogen 13 mg/dL (9-16); Calcium 9.5 mg/dL (8.4-10.2); Carbon Dioxide 26 mmol/L (22-29); Chloride 108 mmol/L (96-108); Estimated Glomerular Filt Rate > 60; Lipase 20 U/L (8-78); Potassium 4.1 mmol/L (3.3-5.1); Sodium 144 mmol/L (135-145); Total Protein 7.6 g/dL (6.5-8.0)
== END 2025-06-22 11:34 | disposition home or self-care (01) ==
LOC: HO.HHCL 11:33
PROVIDERS: PCP Internal Medicine; Visit Provider Family Medicine
DX: R53.83 Other fatigue (principal); R10.13 Epigastric pain
CPT/HCPCS: 36415; 80053; 83690; 84443; 85025

== ENCOUNTER 2025-06-29 15:37 | Outpatient (AMB) | payer MEDICARE, MEDICAID, SELFPAY ==
--- OUTSIDE RECORDS SUMMARY | 2024-01-28 07:00 | XMS_ITS ---
Author Organization [facility] Address [address] [place] [address] Care Team Providers Care Manager Msw Name Role Phone Deandre Aparicio MD, Renan Primary Care Provide Eric Faust [phone] REASON FOR VISIT Patient presents today for a COLON SCREENING Encounters Encounter Location Date Provider Diagnosis [facility] [address] [place] [phone] 01/28/2024 Eric Emmanuel Plan Of Treatment No Information Progress Notes * COLE BOWLESDOB: 6 (69 yo F)Acc No.[id number]:01/28/2024 Progress Notes Patient: COLE GUAMAN Provider: Adelaida Emmanuel MD :1955 A ge:68 Y S ex:Female Date:01/28/2024 Address:[address] [place] [address] [address] , [id number] Pcp:Renan chavez MD Subjective: * Chief Complaints: * 1 . Patient presents today for a COLON SCREENING. * Medical History: Objective: * Vitals: Assessment: Plan: * Treatment: * * The named appointment provid er may or may not be the originator of this progress note, and it is not deemed complete until electronically signed by the appointment provider. Sign off status: Pending * Provider: Adelaida Emmanuel MD Date: 01/28/2024 Generated for Rebecca valdez/Marco/eTransmitting on: 06/29/2025 03:40 PM EDT
--- OUTSIDE RECORDS SUMMARY | 2025-06-29 15:40 | XMS_ITS | Encounter Summary ---
Author Organization [employer] [facility] Address [address] [place] [address] Care Team Providers Care It Help Desk Manager Name Role Phone Renan Lawson MD Primary Care Provide r Edilberto Barahona PharmD Unavailable [phone] Richelle Albarado PharmD Unavailable [phone] Encounter Details Date Type Department Care Team (Late st Contact Info) Description 01/13/2023 Abstract [facility]ICINE [address] [place], [place] [phone] Renan Lawson MD [address] [place], [place] [phone] Social History Tobacco Use Types Packs/Day Years [...] Description 08/10/2025 1:15 PM EDT Office Visit [facility] [place] [place] [address] [place] [address] 09/25/2025 2:00 PM EST Medication Management [facility] [place] [address] [place]hel[place] [address] documented as of this encounter Visit Diagnoses Not on filedocumented in this encounter Additional Health Concerns Assessment Noted Time PHQ-9 Depression Total Score: 0 12/02/19 10:15 AM EST documented as of this encounter Care Teams It Help Desk Manager Relationship Specialty Start Date End [place] [address] PCP - General Internal Medicine 12/10/21 Edilberto Barahona [place] [address] Pharmacist Internal Medicine 07/14/23 10/24/24 Richelle Albarado [place] [address] Pharmacist Internal Medicine 10/25/24 documented as of this encounter
--- NOTE | 2025-06-29 15:44 | A.OFFVIS_ITS ---
Intake Visit Reasons: lab results Intake Note: Patient presents to office today for a follow up/lab results Urology Medications: Estradiol Blood Thinner: Aspirin PVR:10ml Sole Trimmer Required: Yes Accompanied by: Self / Same As Patient Allergies bee pollen (BEE STINGS) Allergy (Unknown, Verified 06/29/25 16:16) ANAPHYLAXIS morphine (MORPHINE) Allergy (Unknown, Verified 06/29/25 16:16) ITCHING Medication List - Last Reconciled 06/29/25 by AJ Delatorre- albuterol sulfate 2.5 mg (3 mL) inhalation Q4H PRN 30 days albuterol sulfate 90 mcg/actuation (Ventolin HFA) 2 puffs PO QID PRN alirocumab (Praluent Pen) 75 mg subcut Q2W amitriptyline 200 mg PO BEDTIME amlodipine 10 mg PO DAILY 90 days ascorbic acid (vitamin C) 1 g PO DAILY 90 days aspirin 81 mg PO DAILY atorvastatin 80 mg PO DAILY benzonatate 200 mg PO BID PRN 30 days blood sugar diagnostic (FreeStyle Lite Strips) Test four times a day or as directed. blood-glucose meter (FreeStyle Lite Meter kit) As Directed hbrdfbbgaa-efuhcggvproxp-ycud 50-325-40 mg 1 tab PO TID PRN cetirizine 10 mg PO BEDTIME cholecalciferol (vitamin D3) 50 mcg PO DAILY clonazepam 1 mg PO BID PRN cyanocobalamin (vitamin B-12) 1,000 mcg PO DAILY cyclobenzaprine 5 mg PO TID PRN 7 days dulaglutide (Trulicity) mg subcut dulaglutide (Trulicity) mg subcut epinephrine 3 mg IM DIRECTED estradiol 0.01%(0.1mg/gram) (Estrace) 1 g vaginal 3XW 90 days ezetimibe (Zetia) 10 mg PO DAILY 90 days fluticasone propionate 50 mcg/actuation 2 sprays intranasal DAILY insulin glargine (Lantus Solostar U-100 Insulin) 40 units (0.4 mL) subcut DAILY insulin lispro (Humalog KwikPen (U-100) Insulin) 1 sliding scale dose subcut QIDACHS lancets (FreeStyle Lancets) Test four times a day or as directed. lancets (TRUEplus Lancets) As directed lisinopril 10 mg PO DAILY metformin ER 1,000 mg PO QAM methenamine hippurate 1 g PO DAILY 90 days metoclopramide HCl 5 mg PO TID mirtazapine 45 mg PO BEDTIME nebulizers As directed nitroglycerin 0.4 mg sublingual Q5M PRN omeprazole 40 mg PO BID pen needle, diabetic Use four times a day or as directed. pregabalin 200 mg PO BID sennosides (senna) 17.2 mg (2 x 8.6 mg) PO BEDTIME 30 days simethicone 180 mg PO QID PRN topiramate 100 mg PO BID trazodone 100 mg PO BEDTIME venlafaxine ER 37.5 mg PO DAILY HPI Comments Details: Naa is a pleasant 69 year old Ukrainian speaking patient of Dr. Cabral. She has a PMH of obstructive sleep apnea on CPAP, chronic restrictive lung disease, chronic allergic rhinitis, asthma, hypertension, type 2 diabetes, and ACD. She presents to the office today for a follow-up of her recurrent urinary tract infections. In discussion with the patient today she reports compliance with methenamine, vitamin-C, and Estrace cream as prescribed. She reports since last office visit she has had one urinary tract infection and completed Bactrim as prescribed. She currently denies any UTI like symptoms. PVR 10 mL. Previous urine cultures were reviewed as noted and trended below: Urine culture: 04/01 E coli, 05/02 E coli, 07/02 E coli, 09/01 E coli, 10/02 E coli, 01/31 E coli, 06/02 E coli urine Cytology: 07/02 Negative for high-grade urothelial carcinoma Previous workup has included a bladder and renal ultrasound 08/02 that noted bilateral kidneys with no hydronephrosis or renal calculi. Right kidney with benign simple cyst which requires no additional follow-up per radiology report. The bladder is well distended and normal. No bladder mass or diverticula is seen. Pre void bladder volume is approximately 515 mL. Postvoid bladder volume is approximately 90 mL. We discussed at length potential causes of recurrent uri nary tract infections as well as further treatment options and risks and benefits of these treatment options. When asked she denies urinary urgency, urinary frequency, incontinence, nocturia, hematuria, dysuria, foul smelling urine, changes to urinary stream, flank pain, fever, and or chills. She is happy with her current voiding parameters. We did discuss in office cystoscopy given recurrent urinary tract infections. She would like to think about this. She otherwise offers no other issues or concerns at this time. [facility] Medical History Periumbilical abdominal pain EDWIN on CPAP Chronic restrictive lung disease Chronic allergic rhinitis Asthma Other and unspecified hyperlipidemia Essential hypertension Type 2 diabetes mellitus with unspecified complications Atherosclerotic cardiovascular disease Surgical History History of esophagogastroduodenoscopy (EGD) Hx of colonoscopy Family History Mother HTN (hypertension) Heart disease Asthma Maternal Aunt Breast cancer Maternal Aunt Tumor Maternal Aunt Cancer Social History Household Members: Spouse and Family Household Members Other:: 4 household members Housing: Apartment Do you presently have visiting nurse or other home services: No Alcohol intake: never Patient Tobacco Use Status: Never used Tobacco service: No Review of Systems Eyes Reports no additional complaints ENT Reports as per HPI Card Reports as per HPI Resp Reports as per HPI GI Reports as per HPI Reports as per HPI Musc Reports no additional complaints Neuro Reports no additional complaints Psych Reports no additional complaints Endo Reports as per HPI Leo/Lymph Reports no additional complaints Aller/Immun Reports no additional complaints Physical Exam Const General: cooperative, healthy appearing, comfortable, no acute distress, well developed, alert and awake Nutritional Appearance: obese Orientation/consciousness: patient oriented x3 Limitations: language barrier HEENT Head: Yes normal to inspection, Yes normocephalic and Yes atraumatic Ears: hearing grossly normal bilaterally Eyes General: appearance normal, both eyes and all related structures Neck Neck: Yes normal visual inspection and Yes trachea midline Chest Chest palpation & inspection: normal inspection of the chest Resp Effort & Inspection: normal respiratory effort and able to speak in complete sentences Cardio Rate: regular rate GI Inspection: Yes normal to inspection General: Yes no CVA tenderness Back/Spine/Pelvis Back: no CVA tenderness Skin General skin exam: no rashes or lesions noted Neuro General: patient oriented x3 Extrem General: Yes normal to inspection Psych Appearance: grossly normal and well kempt Mental Status: mental status grossly normal Speech and movement: Normal speech and movement present and Clear speech present Affect: normal affect Attitude: cooperative Thought process: Normal thought process present Thought content: Normal thought content present Insight: Fair insight present (Psych) Judgement: Fair judgement present (Psych) Assessment & Plan Assessment & Plan (1) Renal cyst: Code(s): N28.1 - Cyst of kidney, acquired Category: Medical (2) Recurrent UTI: Code(s): N39.0 - Urinary tract infection, site not specified Category: Medical Plan In office urinalysis results reviewed with the patient today; as noted above. PVR 10 mL Continue methenamine, vitamin-C, and Estrace cream as prescribed. She currently denies any bothersome urinary issues or concerns. She reports be happy with current voiding parameters. We discussed calling office with any UTI like symptoms. We discussed at length potential causes of recurrent urinary tract infections as well as further treatment options and risks and benefits of these treatment options. We discussed in office cystoscopy for further assessment evaluation. Previous urine culture and urine cytology results were reviewed. Discussed UTI prevention with D mannose supplement, vitamin-C, increasing fluid intake, behavioral therapy with timed voiding, perineal hygiene and postcoital voiding, and management of constipation with stool softeners and increased fiber intake. We also discussed importance of management and diabetes for improvement overall health and well-being. Follow-up in 3 months with PVR; or sooner with any issues, concerns, and or questions. Orders: Orders AMB Urinalysis Automated Today Z13.9 - Encounter for screening, unspecified AMB Post Void Residual by ultrasound Today N39.0 - Urinary tract infection, site not specified Medications: Changed From ascorbic acid (vitamin C) Start once completed antibiotic therapy 1 g PO DAILY 90 days 90 tabs 1RF N39.0 - Urinary tract infection, site not specified To ascorbic acid (vitamin C) 1 g PO DAILY 90 tabs 3RF 90 days N39.0 - Urinary tract infection, site not specified From methenamine hippurate Start once completed antibiotic therapy for current infection 1 g PO DAILY 90 days 90 tabs 1RF N39.0 - Urinary tract infection, site not specified To methenamine hippurate 1 g PO DAILY 90 tabs 3RF 90 days N39.0 - Urinary tract infection, site not specified Patient Instructions: The patient had an opportunity to ask questions regarding the treatment plan. All questions were answered. Physical exam, labs, and imaging were discussed and reviewed in detail. As well as risks, benefits, and discussion of treatment choices. No major barriers to understanding were identified. The patient expressed understanding and agreement with the above treatment plan. The patient was made aware they should contact our office by phone for worsening of their current condition, the appearance of new symptoms, or with any questions or concerns. Compliance is encouraged with any medications and follow up testing that is ordered. It is a privilege to be allowed the opportunity to participate in? your urological care.? Again, if you have any questions or concerns If you have any questions or concerns please do not hesitate to contact me. The office is [phone]. This note is constructed using voice recognition software. While every effort hanyes s been made to ensure accuracy fibre cement moulder errors may have been included. Yours sincerely, GALE Delatorre Coding Level of Care Code Est Pt Level 3 (56423) Complex EM visit Add On G2211 Diagnoses Renal cyst N28.1 Recurrent UTI N39.0
== END 2025-06-29 16:24 | disposition home or self-care (01) ==
LOC: HO.HUSH 15:38
PROVIDERS: PCP Internal Medicine; Visit Provider Nurse Practitioner Family
DX: N28.1 Cyst of kidney, acquired (principal); N39.0 Urinary tract infection, site not specified; Z13.9 Encounter for screening, unspecified
CPT/HCPCS: 99213; G2211

== ENCOUNTER 2025-06-29 15:37 | Outpatient (REF) | payer MEDICARE, MEDICAID, SELFPAY | END 2025-06-29 15:38 | disposition home or self-care (01) | LOC: HO.LAB 15:37 | PROVIDERS: PCP Internal Medicine; Visit Provider Nurse Practitioner Family | DX: N28.1 Cyst of kidney, acquired (principal); N39.0 Urinary tract infection, site not specified; Z79.899 Other long term (current) drug therapy; Z79.82 Long term (current) use of aspirin; Z79.4 Long term (current) use of insulin; Z79.84 Long term (current) use of oral hypoglycemic drugs; Z13.89 Encounter for screening for other disorder | CPT/HCPCS: 81003; 88112; 99212 ==

== ENCOUNTER 2025-09-12 13:58 | Outpatient (AMB) | payer MEDICARE, MEDICAID, SELFPAY ==
[2025-09-12 14:01] VITALS: BP 140/80; PULSE 95; O2SAT 96; BMI 33.4
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
--- OUTSIDE RECORDS SUMMARY | 2025-09-12 17:01 | XMS_ITS | Encounter Summary ---
Author Organization [facility] Address [address] [place] [address] Care Team Providers Care Wireless Manager Name Role Phone Renan Lawson MD Primary Care Provide r Edilberto Barahona PharmD Unavailable + Richelle Albarado PharmD Unavailable [phone] Encounter Details Date Type Department Care Team ([facility] Contact Info) Description 10/22/2022 Orders Only [facility] [address] [place] [address] Denise Leyva LPN Social History Tobacco Use [...] Department Care Team (Late Contact Info) Description 09/25/2025 2:00 PM EST Medication Management [facility] [address] [place] [address] Richelle Albarado PharmD [address] [place] [address] documented as of this encounter Visit Diagnoses Not on filedocumented in this encounter Care Teams Wireless Manager Relationship Specialty Start Date End Date Renan Lawson MD [address] [place] [address] PCP - General Internal Medicine 12/10/21 Edilberto Barahona, KyD [address] [place] [address] Pharmacist Internal Medicine 07/14/23 10/24/24 Richelle Albarado, Toni [address] [place] [address] Pharmacist Internal Medicine 10/25/24 documented as of this encounter
--- OUTSIDE RECORDS SUMMARY | 2025-09-12 17:01 | XMS_ITS | Encounter Summary ---
Author Organization [employer] Address [address] [address] [facility] [facility] [address] [place] [address] Care Team Providers Care Site Coordinator Name Role Phone Renan Lawson MD Primary Care Provide r Edilberto Barahona PharmD Unavailable +3 Richelle Albarado PharmD Unavailable [phone] Reason for Visit * Reason Comments Med Refill Encounter Details Date Type Department Care Team ([facility] st Contact Info) Description 02/09/2024 Refill [facility] [address] [place], [place] [phone] Renan Lawson MD [address] [place], [place] [phone] Fibromyalgia Social History Tobacco Use Types Packs/Day [...] Care Team (Late st Contact Info) Description 09/25/2025 2:00 PM EST Medication Management [facility] [address] [place] [address] Richelle Albarado PharmD [address] [place] [address] documented as of this encounter Goals Goal Patient Goal Type Associated Problems Recent Progress Patient-Stated? Author Blood Pressure < 140/90 Blood Pressure 122/80(2024 11:31 AM EDT) No Edilberto Barahona PharmPercy Blood Pressure < 140/90 Blood Pressure Hypertension 122/80(2024 11:31 AM EDT) No Edilberto Barahona PharmD Keep fasting blood glucose between 70 and 130 Result Component No Edilberto Barahona PharmD Keep fasting blood glucose between 70 and 130 Result Component Diabetes mellitus type 2 with neurological manifestations On track( 023 2:54 PM EDT) No Edilberto Barahona PharmD Hemoglobin A1c < 7.0 Result Component Diabetes mellitus type 2 with neurological manifestations 8.1( 1:03 PM EDT) No Edilberto Barahona PharmPercy documented as of this encounter Visit Diagnoses Diagnosis Fibromyalgia Unspecified myalgia and myositis documented in this encounter Additional Health Concerns Assessment Noted Time PHQ-9 Depression Total Score: 6 12/29/19 24 1:36 PM EST documented as of this encounter Care Teams Site Coordinator Relationship Specialty Start Date End Date Renan Lawson MD [address] [place] [address] PCP - General Internal Medicine 12/10/21 Edilberto Barahona PharmD [address] [place] [address] Pharmacist Internal Medicine 07/14/23 10/24/24 Richelle Albarado PharmD [address] [place] [address] Pharmacist Internal Medicine 10/25/24 documented as of this encounter
--- OUTSIDE RECORDS SUMMARY | 2025-09-12 17:01 | XMS_ITS | Encounter Summary ---
Author Organization [employer] [facility] Address [address] [facility] [address] [place] [address] Care Team Providers Care Child Care Centre Director Name Role Phone Renan Lawson MD Primary Care Provide r Edilberto Barahona PharmD Unavailable [phone] Richelle Albarado PharmD Unavailable [phone] Encounter Details Date Type Department Care Team (Late st Contact Info) Description 01/13/2023 Abstract [facility] MED[facility]INE [address] [place], [place] [phone] Renan Lawson MD 230 [place], [place] [phone] Social History Tobacco Use Types Packs/Day Years [...] Description 09/25/2025 2:00 PM EST Medication Management [facility] [address] [place] [address] Richelle Albarado, Toni [address] [place] [address] documented as of this encounter Visit Diagnoses Not on filedocumented in this encounter Additional Health Concerns Assessment Noted Time PHQ-9 Depression Total Score: 0 12/02/19 10:15 AM EST documented as of this encounter Care Teams Child Care Centre Director Relationship Specialty Start Date End Date Renan Lawson MD [address] [place] [address] PCP - General Internal Medicine 12/10/21 Edilberto Barahona PharmD [address] [place] [address] Pharmacist Internal Medicine 07/14/23 10/24/24 Richelle Albarado PharmD [address] [place] [address] Pharmacist Internal Medicine 10/25/24 documented as of this encounter
--- OUTSIDE RECORDS SUMMARY | 2025-09-12 17:01 | XMS_ITS | Patient Health Record ---
Author Organization [facility] Address [address] [place] [address] Care Team Providers Care Gm Mobile Name Role Phone Deandre Aparicio MD, Renan Primary Care Provide r Unavailable Eric Emmanuel Unavailable [phone] Reason For Referral No Information Plan Of Treatment No Information Insurance Providers Payer Name Payer Address Payer Phone Subscriber Number Group Number Insured Name Patient Relationship to Insured Coverage Start Date Coverage End Date MEDICARE OF [place] [address] [place] [id number] [employer] Self - patient is the insured MEDICAID OF [facility] [address] [place] [address] [id number] [employer] Self - patient is the insured
--- OUTSIDE RECORDS SUMMARY | 2025-09-12 17:01 | XMS_ITS | Encounter Summary ---
Author Organization [employer] [facility] Address [address] [facility] 7t [place] [address] Care Team Providers Care Impregnator Electrolytic Capacitors Name Role Phone Renan Lawson MD Primary Care Provide r Edilberto Barahona PharmD Unavailable [phone] Richelle Albarado PharmD Unavailable [phone] Encounter Details Date Type Department Care Team ([facility] Contact Info) Description 11/14/2022 Telephone [facility] 230 [place], [place] [phone] Renan Lawson MD [address] [place] [address] [phone] Social History Tobacco Use Types Packs/Day Years [...] Upcoming Encounters Date Type Department Care Team ([facility] Contact Info) Description 09/25/2025 2:00 PM EST Medication Management [facility] [address] [place] [phone] AlbaradoRichelle PharmD 230 [place] [address] documented as of this encounter Visit Diagnoses Not on filedocumented in this encounter Care Teams Impregnator Electrolytic Capacitors Relationship Specialty Start Date End Date Renan Lawson MD [address] [place] [address] PCP - General Internal Medicine 12/10/21 Edilberto Barahona PharmD [address] [place] [address] Pharmacist Internal Medicine 07/14/23 10/24/24 Richelle Albarado, KyD [address] [place] [address] Pharmacist Internal Medicine 10/25/24 documented as of this encounter
--- OUTSIDE RECORDS SUMMARY | 2025-09-12 17:01 | XMS_ITS | Encounter Summary ---
Author Organization [employer] Address [address] [facility] [address] 7[address] [place] [address] Care Team Providers Care Stock Room Manager Name Role Phone Renan Lawson MD Primary Care Provide r Edilberto Barahona PharmD Unavailable [phone] Richelle Albarado PharmD Unavailable [phone] Reason for Visit * Reason Comments Med Refill Encounter Details Date Type Department Care Team ([facility] st Contact Info) Description 01/15/2024 Refill [facility] 230 [place], [place] [phone] Shantell Will MD 230 [place], [place] [phone] Fibromyalgia Social History Tobacco Use Types Packs/Day [...] Description 09/25/2025 2:00 PM EST Medication Management [facility] [address] [place] [address] Richelle Albarado PharmD [address] [place] [address] documented as of this encounter Goals Goal Patient Goal Type Associated Problems Recent Progress Patient-Stated? Author Blood Pressure < 140/90 Blood Pressure 122/80(2024 11:31 AM EDT) No Edilberto Barahona PharmD Blood Pressure < 140/90 Blood Pressure Hypertension 122/80(2024 11:31 AM EDT) No Edilberto Barahona, PharmD Keep fasting blood glucose between 70 and 130 Result Component No Virginia Barahonal, PharmD Keep fasting blood glucose between 70 and 130 Result Component Diabetes mellitus type 2 with neurological manifestations On track( 023 2:54 PM EDT) No Edilberto Barahona, PharmD Hemoglobin A1c < 7.0 Result Component Diabetes mellitus type 2 with neurological manifestations 8.1( 1:03 PM EDT) No Edilberto Barahona PharmD documented as of this encounter Visit Diagnoses Diagnosis Fibromyalgia Unspecified myalgia and myositis documented in this encounter Additional Health Concerns Assessment Noted Time PHQ-9 Depression Total Score: 6 12/29/19 24 1:36 PM EST documented as of this encounter Care Teams Stock Room Manager Relationship Specialty Start Date End Date Renan Lawson MD [address] [place] [address] PCP - General Internal Medicine 12/10/21 Edilberto Barahona PharmD 230 [place] [address] Pharmacist Internal Medicine 07/14/23 10/24/24 Richelle Albarado PharmD [address] [place] [address] Pharmacist Internal Medicine 10/25/24 documented as of this encounter
--- OUTSIDE RECORDS SUMMARY | 2025-09-12 17:01 | XMS_ITS | Encounter Summary ---
Author Organization [employer] [facility] Address [address] [facility] 7t [place] [address] Care Team Providers Care Decal Maker Name Role Phone Renan Lawson MD Primary Care Provide r Edilberto Barahona PharmD Unavailable + Richelle Albarado PharmD Unavailable [phone] Reason for Referral * Imaging (Routine) - Closed Specialty Diagnoses / Procedures Referred By Tiffany milian Referred To Contact Radiology Diagnoses Right lower quadrant abdominal pain Procedures US Pelvis Transvaginal Moira Edouard FNP [address] [place] [address] Phone: tel: fax: [address] Phone: tel: fax: Referral ID Status Reason Start Date Expiration Date Visits Re quested Visits Authorized [id number] Closed 08/07/2023 08/06/2024 1 1 Encounter Details Date Type Department Care Team (Late st Contact Info) Description 08/07/2023 Orders Only [facility] [address] [place] [address] Moira Edouard FNP [address] [place] [address] Right lower quadrant abdominal pain (Primary Dx) [...] Description 09/25/2025 2:00 PM EST Medication Management [facility] [address] [place] [address] Richelle Albarado PharmD [address] [place] [address] documented as of this encounter Goals Goal Patient Goal Type Associated Problems Recent Progress Patient-Stated? Author Blood Pressure < 140/90 Blood Pressure 122/80(2024 11:31 AM EDT) No Edilberto Barahona PharmD Blood Pressure < 140/90 Blood Pressure Hypertension 122/80(2024 11:31 AM EDT) No Edilberto Barahona PharmD Keep fasting blood glucose between 70 and 130 Result Component No Edliberto Barahona PharmD Keep fasting blood [...] AM EST Narrative 10/08/2023 5:03 PM EST [address] [address] Ultrasound Report Signed Patient: Naa Pedersen MR#: [id number] : 1955 Acct:[id number] Age/Sex: 67 / F ADM Date: 10/07/23 Loc: HO.US Attending Dr: Moira Edouard NP Ordering Physician: Moira Edouard NP Date of Service: 10/07/23 Procedure(s): US pelvic and transvaginal Accession Number(s): [id number] cc: Moira Edouard NP; Renan Cabral MD [...] in OV> 10/08/23 1659 DD/ 1146 TD/TT: Travel Journalist: Procedure Note Donotuseinterpreter, Image - 10/08/[address] [address] Ultrasound Report Signed Patient: Naa Pedersen EMR#: [id number] : 6Acct:[id number] Age/Sex: 67 / FADM Date: 10/07/23 Loc: HO.US Attending Dr: Moira Edouard NP Ordering Physician: Moira Edouard NP Date of Service: 10/07/23 Procedure(s): US pelvic and transvaginal Accession Number(s): [id number] cc: Moira Edouard TENTER FRAME BACK TENDER; Renan Cabral MD EXAMINATION: US PELVIS CLINICAL [...] in OV> 10/08/23 1659 DD/ 1146 TD/TT: Travel Journalist: us Moira Edouard REPAIR SPECIALIST IMG US PROCEDURES Final Result documented in this encounter Visit Diagnoses Diagnosis Right lower quadrant abdominal pain- Primary documented in this encounter Additional Health Concerns Assessment Noted Time PHQ-9 Depression Total Score: 0 12/02/19 10:15 AM EST documented as of this encounter Care Teams Decal Maker Relationship Specialty Start Date End Date Renan Lawson MD [address] [place] [address] PCP - General Internal Medicine 12/10/21 Edilberto Barahona, KyD [address] [place] [address] Pharmacist Internal Medicine 07/14/23 10/24/24 Richelle Albarado PharmD [address] [place] [address] Pharmacist Internal Medicine 10/25/24 documented as of this encounter
--- OUTSIDE RECORDS SUMMARY | 2025-09-12 17:01 | XMS_ITS | Encounter Summary ---
Author Organization [employer] [facility] Address [address] [facility] [address] [facility] [address] [place] [address] Care Team Providers Care Gum Sprayer Name Role Phone Renan Lawson MD Primary Care Provide r Edilberto Barahona PharmD Unavailable [phone] Richelle Albarado PharmD Unavailable [phone] Encounter Details Date Type Department Care Team (Late st Contact Info) Description 12/17/2022 Abstract [facility] [address] [place], [place] [phone] Renan Lawson MD [address] [place], [place] [phone] Social History Tobacco Use Types Packs/Day Years [...] Description 09/25/2025 2:00 PM EST Medication Management [facility] [address] [place] [address] Richelle Albarado, Toni [address] [place] [address] documented as of this encounter Visit Diagnoses Not on filedocumented in this encounter Additional Health Concerns Assessment Noted Time PHQ-9 Depression Total Score: 0 12/02/19 10:15 AM EST documented as of this encounter Care Teams Gum Sprayer Relationship Specialty Start Date End Date Renan Lawson MD [address] [place] [address] PCP - General Internal Medicine 12/10/21 Edilberto Barahona PharmD [address] [place] [address] Pharmacist Internal Medicine 07/14/23 10/24/24 Richelle Albarado PharmD [address] [place] [address] Pharmacist Internal Medicine 10/25/24 documented as of this encounter
--- OUTSIDE RECORDS SUMMARY | 2025-09-12 17:01 | XMS_ITS | Encounter Summary ---
Author Organization [employer] Address [address] [place] [address] Care Team Providers Care Candle Extrusion Machine Operator Name Role Phone Renan Lawson MD Primary Care Provide r Edilberto Barahona PharmD Unavailable +[phone] Richelle Albarado PharmD Unavailable [phone] Reason for Visit * Reason Onset Date Comments Appointment Request 08/26/2023 Encounter Details Date Type Department Care Team ([facility] st Contact Info) Description 08/26/2023 Telephone [facility] MEDICINE 230 [place], [place] [phone] Renan Lawson MD [address] [place], [place] [phone] Appointment Request Social History Tobacco Use Types [...] Description 09/25/2025 2:00 PM EST Medication Management [facility]INE 230 [place] [address] Richelle Albarado PharmD [address] [place] [address] documented as of this encounter Goals Goal [...] mellitus type 2 with neurological manifestations 8.1( 5 1:03 PM EDT) No Edilberto Barahona PharmD documented as of this encounter Visit Diagnoses Not on filedocumented in this encounter Additional Health Concerns Assessment Noted Time PHQ-9 Depression Total Score: 0 12/02/19 10:15 AM EST documented as of this encounter Care Teams Candle Extrusion Machine Operator Relationship Specialty Start Date End Date Renan Lawson MD [address] [place] [address] PCP - General Internal Medicine 12/10/21 Edilberto Barahona, Toni [address] [place] [address] Pharmacist Internal Medicine 07/14/23 10/24/24 Richelle Albarado PharmD [address] [place] [address] Pharmacist Internal Medicine 10/25/24 documented as of this encounter
--- OUTSIDE RECORDS SUMMARY | 2025-09-12 17:01 | XMS_ITS | Clinical Summary ---
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 Driver Name Role Phone Renan Lawson MD Primary Care Provide r Richelle Albarado PharmD Unavailable [phone] Allergies Active Allergy Reactions Criticality Noted Date Comments Bee Venom Angioedema,Anaphylaxis High 01/10/2016 Morphine 06/10/2012 Other reaction(s): RASH ITCH Other reaction(s): RASH Medications albuterol (2.5 MG/3ML) [...] daily to affected area Active EPINEPHrine (EpiPen 2-Srnii) 0.3 MG/0.3ML injection syringe Inject as directed [...] 024 Active Blood Glucose Monitoring Suppl (FreeStyle [place] Lite) w/Device kit USE DIRECTED TO TEST BLOOD SUGAR FOUR TIMES DAILY 1 kit Active Simethicone Ultra Strength 180 MG capsule TAKE 1 CAPSULE BY MOUTH THREE TIMES DAILY IN THE MORNING, AT NOON, AND AT BEDTIME NEEDED FOR GAS 90 capsule 1 Active TRUEplus Lancets 33G miscIndications: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 Use daily as directed for CGM 1 each 024 Active fluticasone (Flonase) 50 MCG/ACT nasal spray [...] iabetes mellitus type 2 with neurological manifestations (HCC) USE DIRECTED WITH INSULIN FOUR TIMES DAILY 100 each 11 025 Active Blood Pressure Monitoring (Blood Pressure Kit) kit Use to check blood pressure daily 1 kit 025 Active Continuous Glucose Sensor (FreeStyle Richard 3 Plus Sensor) misc 1 each every 15 days. Apply 1 every 15 days as directed for CGM 2 each 025 Active Aspirin Low Dose 81 MG EC tabletIndications :Diabetes mellitus type 2 with neurological manifestations (HCC) TAKE 1 TABLET BY MOUTH DAILY AT BEDTIME 90 tablet 1 025 Active atorvastatin (Lipitor) 80 MG tabletIndications :Mixed hyperlipidemia TAKE 1 TABLET BY MOUTH EVERY DAY AT BEDTIME 90 tablet 1 025 Active amLODIPine (Norvasc) 10 MG tabletIndications :Primary hypertension TAKE 1 TABLET BY MOUTH EVERY DAY IN THE MORNING 90 tablet 1 025 Active cetirizine (ZyrTEC) 10 MG tabletIndications :Seasonal allergies TAKE 1 TABLET BY MOUTH EVERY DAY AT BEDTIME 90 tablet 1 Active ezetimibe (Zetia) 10 MG tabletIndications :Mixed hyperlipidemia TAKE 1 TABLET BY MOUTH DAILY IN THE MORNING 90 tablet 1 Active Dulaglutide (Trulicity) 3 MG/0.5ML solution auto-injectorIndi cations:Diabetes mellitus type 2 with neurological manifestations (HCC) Inject 3 mg under the skin 1 (one) time per week. 2 mL 11 Active Ascorbic Acid (vitamin C) 1000 MG tablet Take 1,000 mg by mouth Once per day. Active methenamine hippurate (Hiprex) 1 g tablet PLEASE SEE ATTACHED FOR DETAILED DIRECTIONS Active tiZANidine (Zanaflex) 2 MG tablet TOME 1 TABLETA POR V A ORAL TODOS LOS D AL ACOSTARSE CUANDO SEA NECESARIO FOR 30 DAYS Active lisinopril 10 MG tablet Take 10 mg by mouth Once per day. Active metoprolol succinate XL (Toprol-XL) 50 MG 24 hr tabletIndications :Primary hypertension TAKE 1 TABLET BY MOUTH EVERY MORNING. DO NOT BREAK, CRUSH, DISSOLVE OR CHEW. 90 tablet 1 Active metFORMIN XR (Glucophage-XR) 500 MG 24 hr tabletIndications :Type 2 diabetes mellitus without complication, without long-term current use of insulin (HCC) TAKE 2 TABLETS BY MOUTH TWICE DAILY IN THE MORNING AND EVENING 360 tablet 1 Active cyanocobalamin (Vitamin B-12) 1000 MCG tabletIndications :Diabetes mellitus type 2 with neurological manifestations (HCC) TAKE 1 TABLET BY MOUTH EVERY MORNING 90 tablet 1 Active pregabalin (Lyrica) 200 MG capsuleIndication s:Fibromyalgia TAKE 1 CAPSULE BY MOUTH TWICE DAILY IN THE MORNING AND IN THE EVENING 60 capsule Active pregabalin (Lyrica) 200 MG capsuleIndication s:Fibromyalgia TAKE 1 CAPSULE BY MOUTH TWICE DAILY IN THE MORNING AND IN THE EVENING 60 capsule 025 2024 Discontinued Active Problems Problem Noted Date Diagnosed Date Fatty liver 05/11/2025 Assessment & Plan (05/11/2025 12:53 PM EDT): Under the care of GI Dr Fabien Rodriguez, last seen 03/2025 Her impression was: That based on testing done, pt does not appear to have cirrhosis at this time but advanced fibrosis not ruled out. Fib 4 is 2.18. She counseled her extensively on modification of metabolic risk factors including obesity, DM, HLD. She stated that although no stigmata of cirrhosis based on testing so far, can not rule out advanced fibrosis, she will elect for q6m HCC screening. Rib pain on right side 07/07/2024 Assessment & Plan (05/11/2025 1:00 PM EDT): Pt with c/o persistent pain right rib cage in the absence of any trauma On exam, there is no redness, Plain films right rib cage showed non displaced fractures, pt was seen at the pain clinic 11/14/2024. They diagnosed her with a post laminectomy syndrome and asked that she consider intrathecal pain pump. Assessment & Plan (09/29/2024 1:32 PM EST): [...] Plan: Will refer to Ortho for evaluation Skin lesion of back 12/23/2022 Assessment & [...] Pt was seen by an orthopaedist at [facility]. [facility] health care 12/02/2022 Overview (09/07/2023): Continues to use vials; on medication synchronization program in pharmacy so looks like the patient is using medboxes but is NOT. Is able to self manage medications on her own. Assessment & Plan (05/11/2025 1:05 PM EDT): Mammogram: 02/24/2025 Normal Colonoscopy: Per GI notes: 03/04/2012 Minor diverticulosis , cecal asymptomatic AVM Cologuard neg 2023. Next CRC screening due 2026. Per Gi noted Assessment & Plan (09/29/2024 1:31 PM EST): [...] for a HDF, She was admitted to [facility] from 11/10--05/2023 She presented with [...] acute finding. Pt was seen by her Dry Cleaner Presser Dr Freeman and is currently wearing an event monitor Forgetfulness 12/02/2022 Assessment & Plan (07/07/2024 1:26 PM EDT): Patient c/o worsening forgetfulness for months now Pt will be referred for a formal Neurology evaluation Assessment & Plan (12/02/2022 3:56 PM EST): Patient c/o worsening forgetfulness for months now Pt will be referred for a formal Neurology evaluation Risk for falls 10/30/2022 Assessment & Plan [...] falls Coronary arteriosclerosis 10/22/2022 Assessment & Plan (05/11/2025 12:54 PM EDT): Pt here for a follow up Pt's stress test from 2020 showed mild [...] atorvastatin, Zetia and Praluent. Last seen by Dry Cleaner Presser Dr Freeman 03/15/2025 Assessment & Plan (09/29/2024 12:42 PM EST): [...] atorvastatin, Zetia and Praluent. Last seen by Dry Cleaner Presser Dr Freeman 07/2024 Assessment & Plan (09/15/2023 [...] asthma without complication 10/22/2022 Assessment & Plan (05/11/2025 12:49 PM EDT): Patient under the care of [facility] Insulation Machine Operator, last seen 04/11/2025 Currently on Ventolin , uses albuterol nebulizarions as well. Dr Carson stopped her other inhalers He mentioned that patient had a CT scan of the chest back in November 2024 which was reassuring without any evidence of parenchymal lung disease and stable findings. He recommended to consider repeating the CAT scan in a year's time. Has follow up 09/12/2025 Assessment & Plan (09/29/2024 12:44 PM EST): Patient under the care of [facility] Insulation Machine Operator, last seen 07/29/2024 Currently on Ventolin , uses albuterol nebulizarions as well. Dr Carson stopped her other inhalers Assessment & Plan (09/15/2023 3:23 PM EST): Patient under the care of [facility] Insulation Machine Operator, last seen April Currently on Ventolin and Breztri Aerosphere , uses albuterol nebulizarions as well Assessment & Plan (12/02/2022 8:52 AM EST): Patient under the care of [facility] Insulation Machine Operator, last seen January 2022 Currently on Ventolin [...] lobe pulmonary nodule 10/22/2022 Assessment & Plan (05/11/2025 1:02 PM EDT): Chest CT done in the ER 05/09/2022 [...] axillary lymph nodes. No enlarged lymph nodes. Repeat Chest CT 09/29/2024 showed: Bilateral lung calcified scattered lung nodules measuring up to 5 mm are nonspecific. Follow-up per Fleischner society criteria recommended. Partial left hepatic lobe surface lobulation. Query cirrhosis. Mild splenomegaly. Assessment & Plan (09/29/2024 2:38 PM EST): [...] with esophagiti s 10/22/2022 Assessment & Plan (05/11/2025 12:51 PM EDT): Pt under the care of Gift Basket Packer at [facility] , last seen 03/29/2025 Currently on a regimen of Dexilant 60 mg po daily and Omeprazole 40 mg po daily Assessment & Plan (12/29/2023 1:11 PM EST): Pt under the care of Gift Basket Packer at [facility] , last seen 10/2023 Currently on a regimen of Dexilant 60 mg po daily and Omeprazole 40 mg po daily Assessment & Plan (12/02/2022 8:52 AM EST): Pt under the care of Gift Basket Packer at [facility] Currently on a regimen of [...] neurological manif estations 05/03/2019 Assessment & Plan (06/27/2025 12:30 PM EDT): Last PCP's note as following: Pt is here for a f/u DM She is on a regimen of: Metformin ER 500 mg 2 tabs po twice daily, Trulicity 3 mg once a week , and Tresiba 36 units at bedtime and short acting Insulin sliding scale from 4-6 units QAC She tests 4 times a day, benefits from CGM Hgb A1c 05/11/2025: 8.1 Eye exam 08/30/2024 [facility] Microalbumin 12/19/2021 was 3.1 Pt not on any ZIGGY inhibitor/ARB Foot check today is risk of: zero Pt reports compliance with Asa 81 mg po daily Pt adviced to: adhere to diabetic diet She did not bring her glucometer Plan: Increase Trulicity to 4.5 mg. once a week check your blood sugars regularly check your feet on a daily basis. F/u 4 months Today: Decrease dulaglutide (Trulicity) to 3 mg again due to hypoglycemia. Assessment & Plan (05/11/2025 1:17 PM EDT): Pt is here for a f/u DM She is on a regimen of: Metformin ER 500 mg 2 tabs po twice daily, Trulicity 3 mg once a week , and Tresiba 36 units at bedtime and short acting Insulin sliding scale from 4-6 units QAC She tests 4 times a day, benefits from CGM Hgb A1c 05/11/2025: 8.1 Eye exam 08/30/2024 at [facility] Microalbumin 12/19/2021 was 3.1 Pt not on any ZIGGY inhibitor/ARB Foot check today is risk of: zero Pt reports compliance with Asa 81 mg po daily Pt adviced to: adhere to diabetic diet She did not bring her glucometer Plan: Increase Trulicity to 4.5 mg. once a week check your blood sugars regularly check your feet on a daily basis. F/u 4 months Assessment & Plan (09/29/2024 12:54 PM EST): [...] (05/04/2023 3:40 PM EDT): - Freestyle Richard [place] and Sensor Ordered - A1c is not [...] 11/30/2018 Peripheral neuropathy 02/16/2018 Assessment & Plan (05/11/2025 1:09 PM EDT): Due to underlying DM Assessment & Plan (09/29/2024 2:30 PM EST): Due to underlying DM Assessment & Plan (12/02/2022 3:54 PM EST): Due to underlying DM Urinary incontinence 02/14/2015 Obesity 02/14/2015 Assessment & Plan (05/11/2025 1:07 PM EDT): Patient has been counseled and educated about diet and exercise. Personal goal of weight loss discussedPatient has comorbidity of: HTN, DM Assessment & Plan (09/29/2024 1:27 PM EST): [...] on MRI of lower back at [facility] in 2008, unchanged 2009. Sl enlarged 2013. Ref uro Assessment & Plan (05/11/2025 12:57 PM EDT): Under the care of Urology, last seen 01/12/2025 Davis's esophagus 01/03/2013 Overview (12/02/2022): Last EGD - Dr. Parviz Sommers, [facility] 01.06.2020 Assessment & Plan (09/29/2024 [...] daily History: - followed by Nixon's office [facility] Cardiology Assessment & Plan (05/11/2025 12:55 PM EDT): Patient with elevated lipids. Lipid profile Lab Results Component Value Date TRIG 271 (H) 01/12/2025 TRIG 167 (H) 07/19/2024 CHOL 270 (H) 01/12/2025 CHOL 202 (H) 07/19/2024 LDLCHOLCAL 173 (H) 01/12/2025 LDLCHOLCAL 131 (H) 07/19/2024 HDL 43 01/12/2025 HDL 38 (L) 07/19/2024 Currently on a regimen of: Atorvastatin 80 mg po daily . Praluent 75 and Ezetimibe 10 mg daily . For now will continue with current regimen advised to try to adhere to a low cholesterol diet, counseled and educated about diet and exercise, Patient encouraged to come up with a personal goal for weight loss. Assessment & Plan (09/29/2024 12:59 PM EST): [...] Hypertension 04/21/2012 Overview (09/09/2024): Assessment & Plan (05/11/2025 12:55 PM EDT): Patient here for a f/u with Hypertension currently controlled on a regimen of: Toprol XL 50 mg po daily and Amlodipine 10 mg po daily BMP Lab Results Component Value Date NA 140 01/12/2025 NA 140 07/21/2024 K 3.4 01/12/2025 K 3.9 07/21/2024 CL 107 01/12/2025 CL 108 07/21/2024 BUN 10 01/12/2025 BUN 12 07/21/2024 CREATININE 0.77 01/12/2025 CREATININE 0.80 07/21/2024 wnl. patient advised to adhere to a low sodium diet, encouraged about medication compliance, counseled about weight loss. Plan:Continue current regimen f/u 4 months Assessment & Plan (09/29/2024 12:55 PM EST): [...] is being followed by Dr. Jarod Angelo ([address] [facility] ). She is now under the care of the Pain Clinic at [facility] Re cent x-ray ordered by [...] is being followed by Dr. Jarod Angelo ([address] ). She is now under the care of the Pain Clinic at [facility] Re cent x-ray ordered by [...] request records from most recent MRI at [facility] pt is being followed by Dr. Jarod Angelo ([address] [facility] ). Depressive disorder 11/09/1959 Assessment & Plan (12/23/2022 2:42 PM EST): Patient under the care of psychiatrist at [place] Currently on a regimen of: Clonazepam 0.5 mg po BID PRN, Trazodone 100 mg po qhs and Mirtazapine 45 mg po at bedtime Pt reports she has agoraphobia and cannot attend Jury Duty She is requesting a letter that due to the fact that she does not speak belarusian and has a psychiatric condition that causes her extreme anxiety when she is surrounded by people, she cannot attend Jury duty Assessment & Plan (12/02/2022 8:44 AM EST): Patient under the care of psychiatrist at [place] Currently on a regimen of: Clonazepam 0.5 [...] surgery with a small sip of water. Type 2 diabetes mellitus wit hout complication, with long-term current use of insulin 06/12/2023 05/11/2025 Overview (12/18/2023): Pharmacotherapy: (updated 09/07/2023) - Metformin [...] monitoring and current therapy - [facility] to check on status of Freestyle richard Assessment & Plan (07/14/2023 4:14 PM EDT): - A1c checked today; 8.4% not at goal of less than 7% per ADA guidelines - Trulicity increased to 3 mg/dl weekly - Medicare B form needed for CGM Closed fracture of nasal bon e with routine healing 11/10/2022 05/11/2025 Asthenia 10/10/2019 09/29/2024 Overview (09/09/2024): Asthenia NOS; [...] Encounters Date Type Department Care Team Description 08/28/2025 Refill [facility] PEDS [address] [place] [address] Renan Lawson MD Fibromyalgia 08/09/2025 Telephone [facility] MEDICINE [address] [place] [address] Renan Lawson MD chart prep 07/27/2025 Orders Only [facility] [address] [place] [address] Renan Lawson MD 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) (Primary Dx) 07/25/2025 Telephone [facility] MEDICINE [address] [place] [address] Renan Lawson MD 07/01/2025 Refill [facility] [address] [place] [address] Renan Lawson MD Fibromyalgia 06/29/2025 Orders Only GENERIC EXTERNAL DATA DEPARTMENT Provider, Generic External Data 06/26/[address] [address] Renan Lawson MD Primary hypertension; Type 2 diabetes mellitus without complication, without long-term current use of insulin ([facility]); Diabetes mellitus type 2 with neurological manifestations ([facility]/HCC) 06/23/2025 Results Follow-Up [address] [address] Mili Verdin MD POCT glucose manually resulted, CBC auto differential, Comprehensive Metabolic Panel, Additional followed-up results: 2 06/22/[address] [address] Renan Lawson MD 06/22/2025 Travel 06/20/2025 3:45 PM EDT Office Visit [address] [address] Mili Verdin MD Fatigue, unspecified type (Primary Dx); Diabetes mellitus type 2 with neurological manifestations ([facility]); Hypoglycemia; Epigastric pain 06/20/[address] [address] Renan Lawson MD Nurse Triage from Last 3 Months Immunizations Immunization Administration Dates Next Due Hep B, adult 01/23/2025,10/24/2024 Influenza High-dose Quadriva lent Preservative Free 07/25/2023,07/18/2021 Influenza Injectable Quadriv alant Preservative Free IIV4 MDCK 07/21/2019,08/14/2017 Influenza injectable quadriv alent preservative free 07/15/2020,07/08/2018 Influenza, High Dose Seasona l, Preservative Free 09/29/2024 Influenza, IIV3, injectable 07/08/2018, 3,07/09/2011 Influenza, injectable, quadr ivalent, preservative free, pediatric 07/20/2013 Moderna Covid-19 Vaccine 12+ 12/19/2021,03/10/20,02/10/2021 Pfizer Covid-19 Vaccine 12+ 10/24/2024 Pneumococcal Conjugate [...] housing situation today? I have vamshidonita naylor 01/18/[address] you [...] Sign Reading Time Taken Comments Blood Pressure 122/80 06/22/2025 11:31 AM EDT Pulse 90 06/20/2025 4:08 PM EDT Temperature 36.2 C (97.1 F) 06/20/2025 4:08 PM EDT Respiratory Rate 17 06/20/2025 4:08 PM EDT Oxygen Saturation 97% 06/20/2025 4:08 PM EDT Inhaled Oxygen Concentration - - Weight 95.3 kg (210 lb) 06/20/2025 4:08 PM EDT Height 165.1 cm (5' 5 ) 05/11/2025 12:52 PM EDT Body Mass Index 34.95 05/11/2025 12:52 PM EDT Plan of Treatment Upcoming Encounters Date Type Department Care Team (Late st Contact Info) Description 09/25/2025 2:00 PM EST Medication Management [facility] MEDICINE [address] [place] [address] Richelle Albarado, PharmD [address] [place] [address] Health Maintenance Due Date Last Done Comments CT Colonography 1955 Colonoscopy 1955 Colorectal Cancer Screening 1955 FIT DNA/Cologuard 1955 FIT 1955 FOBT 1955 Sigmoidoscopy 1955 Diabetes: Foot Exam 1965 Hepatitis A Vaccines (1 of 2 - Risk 2-dose series) 1974 RSV Patients and Patients Aged 60 years or older (1 - Risk 60-74 years 1-dose series) 2015 Diabetes: Urine Protein Screening 12/19/2022 12/19/2021 Depression Screening 12/29/2024 12/29/2023, 12/29/19 24 Hepatitis B Vaccines (3 of 3 - Risk 3-dose series) 04/24/2025 01/23/2025, 10/24/2024 COVID-19 Vaccine ( season) 2025 10/24/2024, 12/19/2021, 03/10/2021, Additional history exists Influenza Vaccine (#1) 2025 4, 07/25/2023, 07/18/2021, Additional history exists Diabetes: Hemoglobin A1C 08/11/2025 025, 01/12/2025, 09/09/2024, Additional history exists Alcohol/Substance Use Screening 09/29/2025 09/29/2024 Eye Exam 12/18/2025 12/18/2023 Lipid Panel 01/12/2026 01/12/2025, 07/10, 05/19/2023, Additional history exists SDOH Screening 01/18/2026 01/18/2025 Mammogram 02/24/2026 02/24/2025, 02/07, 03/14/2022 Tobacco Screening 06/20/2026 06/20/2025 DTaP/Tdap/Td Vaccines (3 - Td or Tdap) 09/29/2034 09/29/2024, 06/02/2013, 07/29/2007, Additional history exists Zoster Vaccines Completed 05/23/2022, 12/2021, 12/31/2017 Pneumococcal Vaccine: 50+ Years Completed 03/20/2023, 03/10/2022, 08/07/2016, Additional history exists Hepatitis C Screening Completed [...] 1:03 PM EDT) No Edilberto Barahona PharmD Procedures Procedure Name Priority Date/Time Associated Diagnosis Comments CYTOPATH-CELL ENHANCED Routine 06/29/2025 4:35 PM EDT TSH W/REFLEX TO FT4 Routine 06/22/2025 1 1:39 AM EDT Fatigue, unspecified type LIPASE Routine 06/22/2025 11:39 AM EDT Epigastric pain COMPREHENSIVE METABOLIC PANEL Routine 06/22/2025 11:39 AM EDT Fatigue, unspecified type CBC WITH AUTO DIFFERENTIAL Routine 06/22/2025 11:39 AM EDT Fatigue, unspecified type POCT GLUCOSE Routine 06/20/2025 3:59 PM EDT 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) POCT GLYCATED HEMOGLOBIN, TOTAL Routine 05/11/2025 1:03 PM EDT 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) BI MAMMOGRAM SCREENING TOMOSYNTHESIS BILATERAL Routine 02/24/2025 1:53 PM EDT HEPATITIS C ANTIBODY Routine 01/12/2025 2:04 PM EST LIPID PANEL, STANDARD Routine 01/12/2025 2:04 PM EST ALBUMIN, RANDOM URINE W/CREATININE Routine 12/19/2021 8:51 AM EST from Last 3 Months or Most Recently Relevant to Health Maintenance Results * Cytopath-cell enhanced (06/29/2025 4:35 PM EDT) 06/29/2025 4:35 PM EDT 06/30/2025 9:27 AM EDT [facility] - 07/03/2025 12:58 PM EDT ----- ------- Name: Naa Pedersen Age/Sex: 69/F : 1955 Unit#: [id number] Attend Dr: Oanh Camp [facility] Re06/29/25 Status: DEP [facility]F [facility] Disch: ----- ------- SPEC : [id number] RECD: 06/30/25 STATUS: EASTON ROSADO NUM: [id number] MINNA: 06/29/25-[address] [facility] [address]: Oanh Camp [facility] ENTERED: 06/30/25-100 SP TYPE: Cytology OT DR: Renan Cabral MD ORDERED: Cyto-enhanced Diagnosis Urine: Negative for high-grade urothelial carcinoma. See comment. COMMENT: Cellular specimen consisting of few single urothelial cells, squamous cells, rare red blood cells, few mixed inflammatory cells and rare crystals. Clinical History Frequent urinary tract infections Material Received Urine Gross Description Received is 15 cc of clear yellow fluid from which a ThinPrep slide is prepared. IHC S/NG Disclaimer NOTE: Unless otherwise stated, all tissue is formalin-fixed and paraffin-embedded. Some or all of the immunohistochemical tests reported herein may have been developed and their performance characteristics determined by [facility]. They have not been cleared or approved by the U.S. Food and Drug Administration (FDA). However, the FDA has determined that such clearance or approval is not necessary. This laboratory is certified under the Clinical Laboratory Improvement Amendments of 1988 (CLIA) as qualified to perform high complexity clinical laboratory testing. Copies To: Renan Cabral MD [address] [address] Oanh Camp [facility] [address] [place] [address] Dr. [address] [place] [address] [email or web address] CONTINUED ON NEXT PAGE ----- ------- Name: Naa Pedersen Age/Sex: 69/F : 1955 Unit#: [id number] Attend Dr: Oanh Camp [facility] Re06/29/25 Status: DEP REF [facility] Disch: ----- ------- SPEC : [id number] RECD: 06/30/25 STATUS: EASTON ROSADO NUM: [id number] MINNA: 06/29/25-[address] [facility] [address]: Oanh Camp [facility]- ENTERED: 06/30/25-100 SP TYPE: Cytology OTHR DR: Renan Cabral MD ORDERED: Cyto-enhanced ----- ------- Signed (signature on file) Teddy Fleming MD 07/03/25 1258 ----- ------- END OF REPORT us Generic External Data Provider LAB CYTOLOGY [facility] Final Result [facility] [address] [place] [phone] * TSH with Reflex to Free T4 (06/22/2025 11:39 AM EDT) TSH reflex Free T4 1.24 0.32 - 4.0 uIU/mL [facility] Blood 06/22/2025 11:3 9 AM EDT 06/22/2025 1:35 PM EDT us Mili Verdin MD LAB BLOOD ORDERABLES Final Resul t [facility] [address] [place], [place] [id number] [phone] * (ABNORMAL) CBC auto differential (06/22/2025 11:39 AM EDT) White Blood Count 12.8(H) 4.8 - 10.8 X10*3/uL [facility] Red Blood Count 4.66 4.20 - 5.50 X10*6/uL [facility] Hemoglobin 11.9(L) 12.0 - 16.0 g/dl [facility] Hematocrit 38.9 37.0 - 47.0 % [facility] Mean Corpuscular Volume 83.5 80.0 - 98.0 fL [facility] Mean Corpuscular Hemoglobin 25.5(L) 27.0 - 33.0 pg [facility] Mean Corpuscular HGB Conc 30.6(L) 31.0 - 35.0 g/dl [facility] Red Cell Distribution Width 15.0 11.0 - 16.0 % [facility] Platelet Count 274 160 - 400 X10*3/uL [facility] Mean Platelet Volume 10.4 9.4 - 12.3 fL [facility] Neutrophils Percent Auto 64.3 45 - 73 % [facility] Imm Gran Pct Auto 0.4 0.0 - 0.4 % [facility] Lymphocytes Percent Auto 28.6 20 - 40 % [facility] Monocytes Percent Auto 4.3 2 - 11 % [facility] Eosinophils Percent Auto 2.0 0 - 4 % [facility] Basophils Percent Auto 0.4 0 - 2 % [facility] NRBC Pct Auto 0.0 0.0 - 0.2 /100WBC [facility] Neutrophils Absolute Auto 8.3 2.0 - 8.3 x10*3/uL [facility] Imm Gran Abs Auto 0.05(H) 0.00 - 0.03 X10*3/uL [facility] Lymphocytes Absolute Auto 3.7 1.2 - 4.9 X10*3/uL [facility] Monocytes Absolute Auto 0.6 0.1 - 1.2 X10*3/uL [facility] Eosinophils Absolute Auto 0.3 0.0 - 0.4 X10*3/uL [facility] Basophils Absolute Auto 0.1 0.0 - 0.2 X10*3/uL [facility] NRBC Abs Auto 0.000 0.0 - 0.012 X10*3/uL [facility] Blood Venous blood specimen / Unknown 06/22/2025 11:39 AM EDT 06/22/2025 1:35 PM EDT Mili Verdin MD LAB BLOOD ORDERABLES Final Resul t Performing Organization Address [facility] de Phone Number [facility] [address] [place] [address] [phone] * Lipase (06/22/2025 11:39 AM EDT) Lipase 20 8 - 78 U/L [facility] Blood Venous blood specimen / Unknown 06/22/2025 11:39 AM EDT 06/22/2025 1:35 PM EDT Mili Verdin MD LAB BLOOD ORDERABLES Final Resul t Performing Organization Address [facility] de Phone Number [facility] [address] [place] [address] [phone] * Comprehensive Metabolic Panel (06/22/2025 11:39 AM EDT) Sodium 144 135 - 145 mmol/L [facility] Potassium 4.1 3.3 - 5.1 mmol/L [facility] Chloride 108 96 - 108 mmol/L [facility] Carbon Dioxide 26 22 - 29 mmol/L [facility] Anion Gap 14 12 - 20 [facility] Urea Nitrogen (BUN) 13 9 - 16 mg/dL [facility] Creatinine, Serum 0.66 0.5 - 1.4 mg/dL [facility] Estimated Glomerular Filt Rate >60 [facility] Comment:Chronic Kidney Disea se: Estimated GFR < 60 mL/min/1.59u8Wmlkbi Kidney Disease: Estimated GFR < 15 mL/min/1.73m2 Glucose 94 60 - 115 mg/dL [facility] Calcium 9.5 8.4 - 10.2 mg/dL [facility] Bilirubin, Total 0.3 0.0 - 1.0 mg/dL [facility] Aspartate Amino Transferase 29 5 - 31 U/L [facility] Alanine Aminotransferase 27 0 - 31 U/L [facility] Total Protein 7.6 6.5 - 8.0 g/dL [facility] Albumin Level 4.3 3.5 - 5.0 g/dL [facility] Alkaline Phosphatase 95 39 - 117 U/L [facility] Blood Venous blood specimen / Unknown 06/22/2025 11:39 AM EDT 06/22/2025 1:35 PM EDT us Mili Verdin MD LAB BLOOD ORDERABLES Final Resul t [facility] [address] [place] [address] [phone] * POCT glucose manually resulted (06/20/2025 3:59 PM EDT) Pathologist [facility] Glucose Blood, POC 122 60 - 200 mg/dL QC Media Lot # [id number] Lot# Expiration Date [id number] Blood Capillary blood specimen / Unknown 06/20/2025 3:59 PM EDT us Mili Verdin MD POINT OF CARE TEST ENTER/EDIT OR DERABLES Final Result * (ABNORMAL) POCT HGB A1C (05/11/2025 1:03 PM EDT) Hemoglobin A1C 8.1(A) 4.0 - 5.7 % QC Media Lot # [id number] Lot# Expiration Date ,[id number] Blood 05/11/2025 1:03 PM EDT Renan Aparicio MD POINT OF CARE TEST EN TER/EDIT ORDERABLES Final Result * BI Mammogram Screening Tomosynthesis Bilateral (02/24/2025 1:53 PM EDT) Anatomical Region Laterality Modality Breast Bilateral Mammography 02/24/2025 1:53 PM EDT Narrative 03/05/2025 9:42 AM EDT [facility] [address] [place], [place] [address] Mammography Report Signed Patient: Naa Pedersen MR#: [id number] : 1955 Acct:[id number] Age/Sex: 69 / F ADM Date: 02/24/25 Loc: [facility] Attending Dr: Renan Cabral MD Ordering Physician: Renan Cabral MD Resu lts: 1Negative Date of Service: 02/24/25 Follow Up: 1 Year From Orig inal Mammogram Procedure(s): MM tomosynthesis screening BI Accession Number(s): [id number] cc: Renan Cabral MD EXAMINATION: MM SCREENING [...] Poppy Mendes DO 03/05/2025 09:40 AM EDT Dictated By: Poppy Mendes DO Signed By: <Electronically signed by Poppy Mendes DO in OV> 03/05/25 0940 DD/ 1353 TD/TT: 02/24/25 1403 Heavy Forger: Procedure Note Donotuseinterpreter, Image - 03/05/2025 [facility] [address] [place] [address] Mammography Report Signed Patient: Naa Pedersen EMR#: [id number] : 6Acct:[id number] Age/Sex: 69 / FADM Date: 02/24/25 Loc: HO.MAMMO Attending Dr: Renan Cabral MD Ordering Physician: Renan Cabral MDResu lts: 1Negative Date of Service: 02/24/25Follow Up: 1 Year From Orig inal Mammogram Procedure(s): MM tomosynthesis screening BI Accession Number(s): [id number] cc: Renan Cabral MD EXAMINATION: MM SCREENING [...] Poppy Mendes DO 03/05/2025 09:40 AM EDT Dictated By: Poppy Mendes DO Signed By: <Electronically signed by Poppy Mendes DO in OV> 03/05/25 0940 DD/ 1353 TD/TT: 02/24/25 1403 Heavy Forger: us Renan Aparicio MD IMG BI PROCEDURES Robert genia Result - Final * Hepatitis C Ab (01/12/2025 2:04 PM EST) Hepatitis C Antibody Nonreactive Nonreactive [facility] Comment:Antibodies to HCV no t detected; does not exclude early acuteHCV infection. 01/12/2025 2:04 PM EST 01/12/2025 2:04 PM EST us Generic External Data Provider LAB BLOOD ORDERAB LES Final Result [facility] [address] [place] [address] [phone] * (ABNORMAL) Lipid Panel, Standard (01/12/2025 2:04 PM EST) Triglycerides 271(H) <150 mg/dL [facility] Comment:Desirable Triglyceri de: less than 150 mg/dLBorderline High Triglyceride 150-199 mg/dLHigh Triglyceride: 200-499 mg/dLVery High Triglyceride: greater than or equal to 5OO mg/dL Cholesterol 270(H) <200 mg/dL [facility] Comment:Desirable Cholestero l: less than 200 mg/dLBorderline High Cholesterol: 200-239 mg/dLHigh Cholesterol: greater than 239 mg/dL LDL Cholesterol Calculated 173(H) <100 mg/dL [facility] Comment:Desirable LDL: less than 100 mg/dLNear Optimal/Above Optimal LDL: 110- 129 mg/dLBorderline High LDL: 130-159 mg/dLHigh LDL: 160-189 mg/dLVery High LDL: greater than or equal to 190 mg/dL HDL Cholesterol 43 >40 mg/dL [facility] Comment:Desirable HDL: great er than 40 mg/dL Note: This HDL assay may give artificially low results in patients with liver disease. 01/12/2025 2:04 PM EST 01/12/2025 2:04 PM EST us Generic External Data Provider LAB BLOOD ORDERAB LES Final Result [facility] [address] [place] [phone] * ALBUMIN, RANDOM URINE W/CREATININE (12/19/2021 8:51 AM EST) Microalbumin Urine 3.1 See Note: mg/dL [facility] Comment: Reference Range: Reference Range Not established Microalb/Creat Ratio 29 <30 mcg/mg creat [facility] Comment: The ADA defines abnormalities in albumin excretion as follows: Albuminuria Category Result (mcg/mg creatinine) Normal to Mildly increased <30 Moderately increased 30-299 Severely increased > OR = 300 The ADA recommends that at least two of three specimens collected within a 3-6 month period be abnormal before considering a patient to be within a diagnostic category. Creatinine, Urine 108 20 - 275 mg/dL [facility] 12/19/2021 8:51 AM EST us Renan Aparicio MD LAB URINE ORDERABLES Final Result [facility] [address] from Last 3 Months or Most Recently Relevant to Health Maintenance Insurance MEDICARE [facility] STANDARD MEDICARE Care Teams Motorcycle Delivery Driver Relationship Specialty Start Date End Date Renan Lawson MD [address] [place] [address] [phone] PCP - General Internal Medicine 12/10/21 Richelle Albarado, Toni [address] [place] [address] Pharmacist Internal Medicine 10/25/24
--- OUTSIDE RECORDS SUMMARY | 2025-09-12 17:01 | XMS_ITS | Encounter Summary ---
Author Organization [facility] [facility] Address [address] [facility] [address] [place] [address] Care Team Providers Care Shipyard Laborer Name Role Phone Renan Lawson MD Primary Care Provide r Edilberto Barahona PharmD Unavailable + Richelle Albarado PharmD Unavailable [phone] Reason for Visit * Reason Onset Date Comments Reschedule 05/20/2023 Encounter Details Date Type Department Care Team ([facility] Contact Info) Description 05/20/2023 Telephone [facility] MEDICINE [address] [place], [place] [phone] Renan Lawson MD [address] [place], [place] [phone] Reschedule Social History Tobacco Use Types Packs/Day [...] knee injection appointment. Please contact pt at [phone] (Citizen Of [place] speaker) documented in this encounter Plan of Treatment Upcoming Encounters Date Type Department Care Team (Late st Contact Info) Description 09/25/2025 2:00 PM EST Medication Management [facility] [address] [place], [place] [phone] Richelle Albarado PharmD [address] [place], [place] documented as of this encounter Goals [...] documented as of this encounter Care Teams Shipyard Laborer Relationship Specialty Start Date End Date Renan Lawson MD [address] [place] [address] [phone] PCP - General Internal Medicine 12/10/21 Edilberto Barahona PharmD [address] [place] [address] [phone] Pharmacist Internal Medicine 07/14/23 10/24/24 Richelle Albarado PharmD [address] [place] [address] [phone] Pharmacist Internal Medicine 10/25/24 documented as of this encounter
--- OUTSIDE RECORDS SUMMARY | 2025-09-12 17:01 | XMS_ITS | Encounter Summary ---
Author Organization [facility] Address [address] [place] [address] Care Team Providers Care Product Assurance Engineer Name Role Phone Renan Lawson MD Primary Care Provide r Edilberto Barahona PharmD Unavailable [phone] Richelle Albarado PharmD Unavailable [phone] Reason for Visit * Reason Comments Med Refill Encounter Details Date Type Department Care Team ([facility] st Contact Info) Description 08/26/2024 Refill [facility] [address] [place], [place] [phone] Renan Lawson MD [address] [place], [place] [phone] Social History Tobacco Use Types Packs/Day Years [...] Description 09/25/2025 2:00 PM EST Medication Management [facility] [address] [place] [address] Richelle Albarado PharmD [address] [place] [address] documented as of this encounter Goals Goal Patient Goal Type Associated Problems Recent Progress Patient-Stated? Author Blood Pressure < 140/90 Blood Pressure 122/80(2024 11:31 AM EDT) No Edilberto Barahona PharmD Blood Pressure < 140/90 Blood Pressure Hypertension 122/80(2024 11:31 AM EDT) No Edilberto Barahona PharmPercy Keep fasting blood glucose between 70 and 130 Result Component No Edilberto Barahona PharmPercy Keep fasting blood glucose between 70 and 130 Result Component Diabetes mellitus type 2 with neurological manifestations On track( 023 2:54 PM EDT) No Edilberto Barahona PharmPercy Hemoglobin A1c < 7.0 Result Component Diabetes mellitus type 2 with neurological manifestations 8.1(07/03/202 5 1:03 PM EDT) No Edilberto Barahona, PharmD documented as of this encounter Visit Diagnoses Not on filedocumented in this encounter Additional Health Concerns Assessment Noted Time PHQ-9 Depression Total Score: 6 12/29/19 24 1:36 PM EST documented as of this encounter Care Teams Product Assurance Engineer Relationship Specialty Start Date End Date Renan Lawson MD [address] [place] [address] PCP - General Internal Medicine 12/10/21 Edilberto Barahona, PharmD [address] [place] [address] Pharmacist Internal Medicine 07/14/23 10/24/24 Richelle Albarado, KyD [address] [place] [address] Pharmacist Internal Medicine 10/25/24 documented as of this encounter
== END 2025-09-12 14:25 | disposition home or self-care (01) ==
LOC: HO.HPS 13:59
PROVIDERS: PCP Internal Medicine; Visit Provider Hospitalist
DX: J45.40 Moderate persistent asthma, uncomplicated (principal); J30.9 Allergic rhinitis, unspecified; K21.00 Gastro-esophageal reflux disease with esophagitis, without bleeding; J98.4 Other disorders of lung; G47.33 Obstructive sleep apnea (adult) (pediatric); Z99.89 Dependence on other enabling machines and devices
CPT/HCPCS: 99214; G2211

== ENCOUNTER → 2025-09-12 13:58 | Outpatient (BNVA) | payer MEDICARE, MEDICAID, SELFPAY | PROVIDERS: PCP Internal Medicine; Visit Provider Hospitalist | DX: J45.40 Moderate persistent asthma, uncomplicated (principal); J30.9 Allergic rhinitis, unspecified; K21.00 Gastro-esophageal reflux disease with esophagitis, without bleeding; J98.4 Other disorders of lung; G47.33 Obstructive sleep apnea (adult) (pediatric); Z99.89 Dependence on other enabling machines and devices | CPT/HCPCS: 99212 ==

== ENCOUNTER 2025-09-20 13:30 | Outpatient (AMB) | payer MEDICARE, MEDICAID, SELFPAY ==
[2025-09-20 13:34] VITALS: BP 124/62; PULSE 91; BMI 33.1
--- NOTE | 2025-09-20 13:34 | MHC.OFFVIS ---
Vital Signs 09/20/25 13:34 Height 5 ft 6 in Weight 205 lb 0.478 oz BMI 33.1 BP 124/62 Blood Pressure Location Lt brachial Position Sitting Pulse 91 Pulse Source Monitor Intake Visit Reasons: 6m follow up Store Loss Prevention Manager Required: Yes Store Loss Prevention Manager Name: LIZZY [phone] Allergies bee pollen (BEE STINGS) Allergy (Unknown, Verified 09/12/25 14:04) ANAPHYLAXIS morphine (MORPHINE) Allergy (Unknown, Verified 09/12/25 14:04) ITCHING Medication List - Last Reconciled 09/20/25 by Dileep Freeman MD albuterol sulfate 2.5 mg (3 mL) inhalation Q4H PRN 30 days albuterol sulfate 90 mcg/actuation (Ventolin HFA) 2 puffs PO QID PRN alirocumab (Praluent Pen) 75 mg subcut Q2W amitriptyline 200 mg PO BEDTIME amlodipine 10 mg PO DAILY 90 days ascorbic acid (vitamin C) 1 g PO DAILY 90 days aspirin 81 mg PO DAILY atorvastatin 80 mg PO DAILY benzonatate 200 mg PO BID PRN 30 days blood sugar diagnostic (FreeStyle Lite Strips) Test four times a day or as directed. blood-glucose meter (FreeStyle Lite Meter kit) As Directed [id number]-[id number]-aoum 50-325-40 mg 1 tab PO TID PRN cetirizine 10 mg PO BEDTIME cholecalciferol (vitamin D3) 50 mcg PO DAILY clonazepam 1 mg PO BID PRN cyanocobalamin (vitamin B-12) 1,000 mcg PO DAILY cyclobenzaprine 5 mg PO TID PRN 7 days dulaglutide (Trulicity) mg subcut epinephrine 3 mg IM DIRECTED estradiol 0.01%(0.1mg/gram) (Estrace) 1 g vaginal 3XW 90 days ezetimibe (Zetia) 10 mg PO DAILY 90 days fluticasone propionate 50 mcg/actuation 2 sprays intranasal DAILY insulin lispro (Humalog KwikPen (U-100) Insulin) 1 sliding scale dose subcut QIDACHS lancets (FreeStyle Lancets) Test four times a day or as directed. lancets (TRUEplus Lancets) As directed lisinopril 10 mg PO DAILY metformin ER 1,000 mg PO QAM methenamine hippurate 1 g PO DAILY 90 days metoclopramide HCl 5 mg PO TID mirtazapine 45 mg PO BEDTIME nebulizers As directed nitroglycerin 0.4 mg sublingual Q5M PRN omeprazole 40 mg PO BID pen needle, diabetic Use four times a day or as directed. pregabalin 200 mg PO BID sennosides (senna) 17.2 mg (2 x 8.6 mg) PO BEDTIME 30 days simethicone 180 mg PO QID PRN topiramate 100 mg PO BID trazodone 100 mg PO BEDTIME venlafaxine ER 37.5 mg PO DAILY HPI Comments Details: Naa returns for follow-up regarding coronary disease. In the past, due to chest pains, she has undergone stress testing, coronary CTA as well as cardiac catheterization. 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 Multiple cardiovascular risk factors. In the past, she had reported random chest pains of uncertain nature. Currently, she is again complaining of pains but more so at rest but not with activity. Again very atypical. On touching her chest she has some tenderness and hence not clear if it is just muscular. Otherwise, doing okay. 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 Surgical History History of esophagogastroduodenoscopy (EGD) Hx of colonoscopy Family History Mother HTN (hypertension) Heart disease Asthma Maternal Aunt Breast cancer Maternal Aunt Tumor Maternal Aunt Cancer Social History Household Members: Spouse and Family Household Members Other:: 4 household members Housing: Apartment Do you presently have visiting nurse or other home services: No Alcohol intake: never Patient Tobacco Use Status: Never used Tobacco service: No Review of Systems Const Denies weakness ENT Denies dizziness Card Reports chest pain, Reports chest pain at rest, Reports chest pain with activity, Denies syncope, Denies rapid heart rate, Denies pedal edema, Denies edema, Denies leg edema, Denies lightheadedness, Denies palpitations, Denies dyspnea, Denies dyspnea on exertion and Denies orthopnea Resp Denies cough, Denies dyspnea and Denies dyspnea on exertion GI Denies hematochezia and Denies change in stool character Musc Denies abnormal gait, Denies muscle cramps, Denies muscle weakness, Reports numbness, Denies radiating pain into limb and Reports tingling Neuro Denies abnormal gait, Denies dizziness, Denies syncope, Reports numbness, Reports tingling and Denies weakness Endo Denies palpitations Physical Exam Vital Signs: Last Vital Signs Pulse 91 09/20/25 13:34 BP 124/62 09/20/25 13:34 BMI result Body Mass Index 33.1 Const General: comfortable and no acute distress Orientation/consciousness: patient oriented x3 HEENT Other: Unremarkable Head: Yes normal to inspection Neck Neck: Yes normal visual inspection Chest Chest palpation & inspection: normal inspection of the chest Resp Auscultation: clear to auscultation bilaterally Cardio Palpation: normal PMI Heart sounds: S1 normal heart sound present, S2 normal heart sound present, no gallops, no murmurs and no rubs GI Palpation (GI): Soft to palpation Back/Spine/Pelvis Other: unremarkable Skin General skin exam: no rashes or lesions noted Neuro General: patient oriented x3 Extrem General: Yes normal to inspection Psych Mental Status: mental status grossly normal Office Procedures EKG Details: EKG with underlying sinus rhythm at 91/Min; leftward axis; right bundle-branch block pattern; cannot exclude old anterolateral infarct but could be from body habitus; [place] [address]-[place], Complete Assessment & Plan Assessment & Plan (1) Atherosclerotic cardiovascular disease: Code(s): I25.10 - Atherosclerotic heart disease of [place] coronary artery without angina pectoris Category: Medical Plan: Myocardial perfusion imaging study in the past showed mild intensity apical ischemia. Coronary CTA had shown moderate calcification the LAD and circumflex; luminal patency cannot be assessed adequately but there was no occlusion. Cardiac [id number]-qsmc disease in the LAD and circumflex. Ostial RCA with approximately 40% stenosis. Nothing hemodynamically significant. Aggressive risk factor modification. She remains on aspirin, statins, Zetia, Praluent. Due to history of EpiPen use, off metoprolol. The current chest pains very atypical and also with some chest tenderness. If indeed she gets something exertional then we will need further assessment. We discussed about this today. (2) RBBB: Code(s): I45.10 - Unspecified right bundle-branch block Category: Medical Plan: Can follow for any progressive conduction system disease. (3) Type 2 diabetes mellitus with unspecified complications: Code(s): E11.8 - Type 2 diabetes mellitus with unspecified complications Category: Medical Plan: Listed to be on Trulicity, insulin, metformin. Previously, poor diabetes control. Most recent hemoglobin A1c is 8.3%. Does not ideal. (4) Essential hypertension: Code(s): I10 - Essential (primary) hypertension Category: Medical Plan: Stable. (5) Other and unspecified hyperlipidemia: Code(s): E78.5 - Hyperlipidemia, unspecified Category: Medical Plan: Listed to be on statins, Zetia, Praluent. Check lipids. (6) EDWIN on CPAP: Code(s): G47.33 - Obstructive sleep apnea (adult) (pediatric); Z99.89 - Dependence on other enabling machines and devices Category: Medical Plan Discussion Notes I discussed with the patient that her chest pain is unlikely to be cardiac in origin due to its occurrence primarily when sitting. I advised her to monitor the pain and report if it becomes more frequent with exertion. We also reviewed her cholesterol management plan, including the continuation of her bi-weekly injections and the need for a follow-up cholesterol test. Patient was informed and verbally consented to the use of an ambient scribe for clinic note documentation during this visit. Orders: Orders Lipid Panel Today E78.5 - Hyperlipidemia, unspecified, I25.10 - Atherosclerotic heart disease of [place] coronary artery without angina pectoris Patient Instructions: - Monitor chest pain and report if it worsens or occurs more with exertion. - Continue cholesterol injections every two weeks. - Complete the cholesterol test as ordered. Coding Level of Care Code Est Pt Level 4 (32535) Complex EM visit Add On G2211 Diagnoses Atherosclerotic cardiovascular disease I25.10 RBBB I45.10 Type 2 diabetes mellitus with unspecified complications E11.8 Essential hypertension I10 Other and unspecified hyperlipidemia E78.5 EDWIN on CPAP G47.33; Z99.89 CPT Codes EKG - CPT: 58033-Tgotzkljexgkwsxog, Complete ([id number])
--- OUTSIDE RECORDS SUMMARY | 2025-09-20 16:23 | XMS_ITS | Encounter Summary ---
Author Organization [facility] [facility] Address [address] [facility] 7[address] [place] [address] Care Team Providers Care Corporate Quality Engineer Name Role Phone Renan Lawson MD Primary Care Provide r Edilberto Barahona PharmD Unavailable + Richelle Albarado PharmD Unavailable [phone] Reason for Visit * Reason Onset Date Comments Reschedule 05/20/2023 Encounter Details Date Type Department Care Team ([facility] Contact Info) Description 05/20/2023 Telephone [facility] MEDICINE [address] [place], [place] [phone] Renan Lawson MD [address] [place], [place] [phone] Reschedule Social History Tobacco Use Types Packs/Day [...] knee injection appointment. Please contact pt at [phone] (Telugu speaker) documented in this encounter Plan of Treatment Upcoming Encounters Date Type Department Care Team (Late st Contact Info) Description 09/25/2025 2:00 PM EST Medication Management [facility] MEDICINE [address] [place], [place] [phone] Richelle Albarado PharmD [address] [place], [place] documented as of this encounter Goals [...] documented as of this encounter Care Teams Corporate Quality Engineer Relationship Specialty Start Date End Date Renan Lawson MD [address] [place] [phone] PCP - General Internal Medicine 12/10/21 Edilberto Barahona PharmD [address] [place] [address] [phone] Pharmacist Internal Medicine 07/14/23 10/24/24 Richelle Albarado PharmD [address] [place] [address] [phone] Pharmacist Internal Medicine 10/25/24 documented as of this encounter
--- OUTSIDE RECORDS SUMMARY | 2025-09-20 16:23 | XMS_ITS | Encounter Summary ---
Author Organization [employer] [facility] Address [address] [place] [address] Care Team Providers Care Mobile Device Developer Name Role Phone Renan Lawson MD Primary Care Provide r Edilberto Barahona PharmD Unavailable + Richelle Albarado PharmD Unavailable [phone] Encounter Details Date Type Department Care Team (Late st Contact Info) Description 12/17/2022 Abstract [facility] [address] [place], [place] [phone] Renan Lawson MD [address] [place], [place] [phone] Social History Tobacco Use Types Packs/Day Years [...] Description 09/25/2025 2:00 PM EST Medication Management [facility] [address] [place] [address] Richelle Albarado, Toni [address] [place] [address] documented as of this encounter Visit Diagnoses Not on filedocumented in this encounter Additional Health Concerns Assessment Noted Time PHQ-9 Depression Total Score: 0 12/02/19 10:15 AM EST documented as of this encounter Care Teams Mobile Device Developer Relationship Specialty Start Date End Date Renan Lawson MD [address] [place] [phone] PCP - General Internal Medicine 12/10/21 Edilberto Barahona PharmD [address] [place] [phone] Pharmacist Internal Medicine 07/14/23 10/24/24 Richelle Albarado PharmD [address] [place] [address] Pharmacist Internal Medicine 10/25/24 documented as of this encounter
--- OUTSIDE RECORDS SUMMARY | 2025-09-20 16:23 | XMS_ITS | Encounter Summary ---
Author Organization [employer] Address [address] 7[address] [place] [address] Care Team Providers Care Test And Turn Up Technician Name Role Phone Renan Lawson MD Primary Care Provide r Edilberto Barahona PharmD Unavailable [phone] Richelle Albarado PharmD Unavailable [phone] Reason for Visit * Reason Onset Date Comments Appointment Request 08/26/2023 Encounter Details Date Type Department Care Team ([facility] st Contact Info) Description 08/26/2023 Telephone [facility] [address] [place], [place] [phone] Renan Lawson MD [address] [place], [place] [phone] Appointment Request Social History Tobacco Use Types [...] Description 09/25/2025 2:00 PM EST Medication Management [facility] [address] [place] [address] Richelle Albarado PharmD [address] [place] [address] documented as of this encounter Goals Goal [...] documented as of this encounter Care Teams Test And Turn Up Technician Relationship Specialty Start Date End Date Renan Lawson MD [address] [place] [address] PCP - General Internal Medicine 12/10/21 Edilberto Barahona, Toni [address] [place] [address] Pharmacist Internal Medicine 07/14/23 10/24/24 Richelle Albarado PharmD [address] [place] [address] Pharmacist Internal Medicine 10/25/24 documented as of this encounter
--- OUTSIDE RECORDS SUMMARY | 2025-09-20 16:23 | XMS_ITS | Encounter Summary ---
Author Organization [employer] [facility] Address [address] [facility] 7t [place] [address] Care Team Providers Care Special Education Case Manager Name Role Phone Renan Lawson MD Primary Care Provide r Edilberto Barahona PharmD Unavailable + Richelle Albarado PharmD Unavailable [phone] Encounter Details Date Type Department Care Team ([facility] Contact Info) Description 10/22/2022 Orders Only [facility] [address] [place] [address] Denise Leyva LPN Social History Tobacco Use [...] Description 09/25/2025 2:00 PM EST Medication Management [facility] [address] [place] [address] Richelle Albarado PharmD [address] [place] [address] documented as of this encounter Visit Diagnoses Not on filedocumented in this encounter Care Teams Special Education Case Manager Relationship Specialty Start Date End Date Renan Lawson MD [address] [place] [address] PCP - General Internal Medicine 12/10/21 Edilberto Barahona, KyD [address] [place] [address] Pharmacist Internal Medicine 07/14/23 10/24/24 Richelle Albarado, Toni [address] [place] [address] Pharmacist Internal Medicine 10/25/24 documented as of this encounter
--- OUTSIDE RECORDS SUMMARY | 2025-09-20 16:23 | XMS_ITS | Encounter Summary ---
Author Organization [employer] [facility] Address [address] [facility] 7[address] [place] [address] Care Team Providers Care Cullet Crusher And Washer Name Role Phone Renan Lawson MD Primary Care Provide r Edilberto Barahona PharmD Unavailable [phone] Richelle Albarado PharmD Unavailable [phone] Encounter Details Date Type Department Care Team ([facility] Contact Info) Description 11/14/2022 Telephone [facility] [address] [place], [place] [phone] Renan Lawson MD [address] [place] [address] [phone] Social History Tobacco Use Types Packs/Day Years [...] Upcoming Encounters Date Type Department Care Team ([facility] Contact Info) Description 09/25/2025 2:00 PM EST Medication Management [facility] [address] [place] [address] [phone] AlbaradoRichelle PharmD [address] [place] [address] documented as of this encounter Visit Diagnoses Not on filedocumented in this encounter Care Teams Cullet Crusher And Washer Relationship Specialty Start Date End Date Renan Lawson MD [address] [place] [phone] PCP - General Internal Medicine 12/10/21 Edilberto Barahona PharmD [address] [place] [phone] Pharmacist Internal Medicine 07/14/23 10/24/24 Richelle Albarado, KyD [address] [place] [phone] Pharmacist Internal Medicine 10/25/24 documented as of this encounter
--- OUTSIDE RECORDS SUMMARY | 2025-09-20 16:23 | XMS_ITS | Encounter Summary ---
Author Organization [employer] Address [address] [place] [address] Care Team Providers Care Hearing Therapy Director Name Role Phone Renan Lawson MD Primary Care Provide r Edilberto Barahona PharmD Unavailable [phone] Richelle Albarado PharmD Unavailable [phone] Reason for Visit * Reason Comments Med Refill Encounter Details Date Type Department Care Team ([facility] st Contact Info) Description 02/09/2024 Refill [facility] [address] [place], [place] [phone] Renan Lawson MD [address] [place], [place] [phone] Fibromyalgia Social History Tobacco Use Types Packs/Day [...] 09/25/2025 2:00 PM EST Medication Management [facility] [address] [place] [address] Richelle Albarado PharmD [address] [place] [address] documented as of this encounter Goals Goal [...] documented as of this encounter Care Teams Hearing Therapy Director Relationship Specialty Start Date End Date Renan Lawson MD [address] [place] [address] PCP - General Internal Medicine 12/10/21 Edilberto Barahona PharmD [address] [place] [address] Pharmacist Internal Medicine 07/14/23 10/24/24 Richelle Albarado PharmD [address] [place] [address] Pharmacist Internal Medicine 10/25/24 documented as of this encounter
--- OUTSIDE RECORDS SUMMARY | 2025-09-20 16:23 | XMS_ITS | Encounter Summary ---
Author Organization [employer] Address [address] [facility] [address] [address] [place] [address] Care Team Providers Care Senior Partner Name Role Phone Renan Lawson MD Primary Care Provide r Edilberto Barahona PharmD Unavailable [phone] Richelle Albarado PharmD Unavailable [phone] Reason for Visit * Reason Comments Med Refill Encounter Details Date Type Department Care Team ([facility] st Contact Info) Description 01/15/2024 Refill [facility] [address] [place], [place] [phone] Shantell Will MD [address] [place], [place] [phone] Fibromyalgia Social History Tobacco Use Types Packs/Day [...] Description 09/25/2025 2:00 PM EST Medication Management [facility] [address] [place] [address] Richelle Albarado PharmD [address] [place] [address] documented as of this encounter Goals Goal Patient Goal Type Associated Problems Recent Progress Patient-Stated? Author Blood Pressure < 140/90 Blood Pressure 122/80(2024 11:31 AM EDT) No Edilberto Barahona PharmD Blood Pressure < 140/90 Blood Pressure Hypertension 122/80(2024 11:31 AM EDT) No Edilbetro Barahona, PharmD Keep fasting blood glucose between [...] as of this encounter Care Teams Senior Partner Relationship Specialty Start Date End Date Renan Lawson MD [address] [place] [address] PCP - General Internal Medicine 12/10/21 Edilberto Barahona PharmD [address] [place] [address] Pharmacist Internal Medicine 07/14/23 10/24/24 Richelle Albarado PharmD [address] [place] [phone] Pharmacist Internal Medicine 10/25/24 documented as of this encounter
--- OUTSIDE RECORDS SUMMARY | 2025-09-20 16:23 | XMS_ITS | Clinical Summary ---
Author Organization [employer] Address [address] [facility] 7t [place] [address] Care Team Providers Care Compensation Analyst Name Role Phone Renan Lawson MD Primary Care Provide r Richelle Albarado PharmD Unavailable [phone] Allergies Active Allergy Reactions Criticality Noted Date [...] 024 Active Blood Glucose Monitoring Suppl (FreeStyle [place]) w/Device kit USE DIRECTED TO TEST [...] 100 each 11 024 Active Continuous Glucose Wood Mill Supervisor (FreeStyle Richard 3 [place]) deviceIndications :Diabetes mellitus type 2 with neurological [...] Pt was seen by an orthopaedist at [facility]. [facility] health care 12/02/2022 Overview (09/07/2023): Continues to [...] for a HDF, She was admitted to [facility] from 11/10--05/2023 She presented with syncope with [...] finding. Pt was seen by her Director Of Physical Therapy Dr Freeman and is currently wearing an [...] Zetia and Praluent. Last seen by Director Of Physical Therapy Dr Freeman 03/15/2025 Assessment & Plan (09/29/2024 [...] Zetia and Praluent. Last seen by Director Of Physical Therapy Dr Freeman 07/2024 Assessment & Plan (09/15/2023 [...] Patient under the care of [facility] [employer] Worker, last seen 04/11/2025 Currently on Ventolin , [...] Patient under the care of [facility] [employer] Worker, last seen 07/29/2024 Currently on Ventolin , uses albuterol nebulizarions as well. Dr Carson stopped her other inhalers Assessment & Plan (09/15/2023 3:23 PM EST): Patient under the care of [facility] [employer] Worker, last seen April Currently on Ventolin and Breztri Aerosphere , uses albuterol nebulizarions as well Assessment & Plan (12/02/2022 8:52 AM EST): Patient under the care of [facility] [employer] Worker, last seen January 2022 Currently on Ventolin [...] PM EDT): Pt under the care of Wire Spiral Binder at [facility] , last seen 03/29/2025 Currently on a regimen of Dexilant 60 mg po daily and Omeprazole 40 mg po daily Assessment & Plan (12/29/2023 1:11 PM EST): Pt under the care of Wire Spiral Binder at [facility] , last seen 10/2023 Currently on a regimen of Dexilant 60 mg po daily and Omeprazole 40 mg po daily Assessment & Plan (12/02/2022 8:52 AM EST): Pt under the care of Wire Spiral Binder at [facility] Currently on a regimen of Dexilant 60 [...] (05/04/2023 3:40 PM EDT): - Freestyle Richard [place] and Sensor Ordered - A1c is not [...] found on MRI of lower back at [facility] in 2008, unchanged 2009. Sl enlarged 2013. Ref uro Assessment & Plan (05/11/2025 12:57 PM EDT): Under the care of Urology, last seen 01/12/2025 Davis's esophagus 01/03/2013 Overview (12/02/2022): Last EGD - Dr. Parviz Sommers, [facility] 01.06.2020 Assessment & Plan (09/29/2024 2:39 PM [...] daily History: - followed by Nixon's office [facility] Cardiology Assessment & Plan (05/11/2025 12:55 PM [...] is being followed by Dr. Jarod Angelo ([address] [facility] ). She is now under the care of the Pain Clinic at [facility] Re cent x-ray ordered by them 12/22/2023 [...] is being followed by Dr. Jarod Angelo ([address] ). She is now under the care of the Pain Clinic at [facility] Re cent x-ray ordered by them 12/22/2023 [...] request records from most recent MRI at [facility] pt is being followed by Dr. Jarod Angelo ([address] [facility] ). Depressive disorder 11/09/1959 Assessment & Plan (12/23/2022 2:42 PM EST): Patient under the care of psychiatrist at [facility] Currently on a regimen of: Clonazepam 0.5 [...] Patient under the care of psychiatrist at [facility] Currently on a regimen of: Clonazepam 0.5 [...] at home monitoring and current therapy - [facility] to check on status of [...] Type Department Care Team Description 08/28/2025 Refill [facility] MED & PEDS [address] [place] [address] Renan Lawson MD Fibromyalgia 08/09/2025 Telephone [facility] MEDICINE [address] [place] [address] Renan Lawson MD chart prep 07/27/2025 Orders Only [facility]IC[facility] [address] [place] [address] Renan Lawson MD 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) (Primary Dx) 07/25/2025 Telephone [facility] MEDICINE [address] [place] [address] Renan Lawson MD 07/01/2025 Refill [facility] PEDS [address] [place] [address] Renan Lawson MD Fibromyalgia 06/29/2025 Orders Only GENERIC EXTERNAL DATA DEPARTMENT Provider, Generic External Data 06/26/[address] [address] Renan Lawson MD Primary hypertension; Type 2 diabetes mellitus without complication, without long-term current use of insulin ([facility]); Diabetes mellitus type 2 with neurological manifestations ([facility]/HCC) 06/23/2025 Results Follow-Up [address] [address] Mili Verdin MD POCT glucose manually resulted, CBC auto differential, Comprehensive Metabolic Panel, Additional followed-up results: 2 06/22/[address] [address] Renan Lawson MD 06/22/2025 Travel 06/20/2025 3:45 PM EDT Office Visit [address] [address] Mili Verdin MD Fatigue, unspecified type (Primary Dx); Diabetes mellitus type 2 with neurological manifestations ([facility]); Hypoglycemia; Epigastric pain 06/20/[address] [address] Renan Lawson MD Nurse Triage from Last [...] Description 09/25/2025 2:00 PM EST Medication Management [facility] MEDICINE [address] [place] [address] Richelle Albarado, PharmD [address] [place] [address] Health Maintenance Due Date Last Done Comments CT Colonography 1955 Colonoscopy 1955 Colorectal Cancer Screening 1955 FIT DNA/Cologuard 1955 FIT 1955 FOBT 1955 Sigmoidoscopy 1955 Diabetes: Foot Exam 1965 Hepatitis A Vaccines (1 of 2 - Risk 2-dose series) 1974 RSV Patients and Patients Aged 60 years or older (1 - Risk 50-74 years 1-dose series) 2005 Diabetes: Urine Protein Screening 12/19/2022 12/19/2021 Depression [...] 4:35 PM EDT 06/30/2025 9:27 AM EDT [facility] LABS - 07/03/2025 12:58 PM EDT ----- ------- Name: Naa Pedersen Age/Sex: 69/F : 1955 Unit#: [id number] Attend Dr: Oanh Camp [facility] Re06/29/25 Status: DEP [facility] Disch: ----- ------- SPEC : [id number] RECD: 06/30/25 STATUS: EASTON ROSADO NUM: [id number] MINNA: 06/29/25-1634 [facility] DR: Oanh Camp [facility] ENTERED: 06/30/25-100 SP TYPE: Cytology OT [...] developed and their performance characteristics determined by [facility]. They have not been cleared or approved by the U.S. Food and Drug Administration (FDA). However, the FDA has determined that such clearance or approval is not necessary. This laboratory is certified under the Clinical Laboratory Improvement Amendments of 1988 (CLIA) as qualified to perform high complexity clinical laboratory testing. Copies To: Renan Cabral MD [address] [address] Oanh Camp [facility] [address] [place] [address] Dr. Stafford [address] [place] [address] [email or web address] CONTINUED ON NEXT PAGE ----- ------- Name: Naa Pedersen Age/Sex: 69/F : 1955 Unit#: [id number] Attend Dr: Oanh Camp [facility] Re06/29/25 Status: DEP [facility]F [facility] Disch: ----- ------- SPEC : [id number] RECD: 06/30/25 STATUS: EASTON ROSADO NUM: [id number] MINNA: 06/29/25-1634 [facility] DR: Oanh Camp [facility] ENTERED: 06/30/25-100 SP TYPE: Cytology OTHR DR: Renan Cabral MD ORDERED: Cyto-enhanced ----- ------- Signed (signature on file) Teddy Fleming MD 07/03/25 1258 ----- ------- END OF REPORT us Generic External Data Provider LAB CYTOLOGY [facility] Final Result [facility] [address] [place] [phone] * TSH with Reflex to Free T4 (06/22/2025 11:39 AM EDT) TSH reflex Free T4 1.24 0.32 - 4.0 uIU/mL [facility] Blood 06/22/2025 11:3 9 AM EDT 06/22/2025 1:35 PM EDT us Mili Verdin MD LAB BLOOD ORDERABLES Final Resul t [facility] [address] [place], [place] [phone] * (ABNORMAL) CBC auto differential (06/22/2025 11:39 AM EDT) White Blood Count 12.8(H) 4.8 - 10.8 X10*3/uL [facility] Red Blood Count 4.66 4.20 - 5.50 X10*6/uL [facility] Hemoglobin 11.9(L) 12.0 - 16.0 g/dl [facility] Hematocrit 38.9 37.0 - 47.0 % [facility] Mean Corpuscular Volume 83.5 80.0 - 98.0 fL [facility] Mean Corpuscular Hemoglobin 25.5(L) 27.0 - 33.0 pg [facility] Mean Corpuscular HGB Conc 30.6(L) 31.0 - 35.0 g/dl [facility] Red Cell Distribution Width 15.0 11.0 - 16.0 % [facility] Platelet Count 274 160 - 400 X10*3/uL [facility] Mean Platelet Volume 10.4 9.4 - 12.3 fL [facility] Neutrophils Percent Auto 64.3 45 - 73 % [facility] Imm Gran Pct Auto 0.4 0.0 - 0.4 % [facility] Lymphocytes Percent Auto 28.6 20 - 40 % [facility] Monocytes Percent Auto 4.3 2 - 11 % [facility] Eosinophils Percent Auto 2.0 0 - 4 % [facility] Basophils Percent Auto 0.4 0 - 2 % [facility] NRBC Pct Auto 0.0 0.0 - 0.2 /100WBC [facility] Neutrophils Absolute Auto 8.3 2.0 - 8.3 x10*3/uL [facility] Imm Gran Abs Auto 0.05(H) 0.00 - 0.03 X10*3/uL [facility] Lymphocytes Absolute Auto 3.7 1.2 - 4.9 X10*3/uL [facility] Monocytes Absolute Auto 0.6 0.1 - 1.2 X10*3/uL [facility] Eosinophils Absolute Auto 0.3 0.0 - 0.4 X10*3/uL [facility] Basophils Absolute Auto 0.1 0.0 - 0.2 X10*3/uL [facility] NRBC Abs Auto 0.000 0.0 - 0.012 X10*3/uL [facility] Blood Venous blood specimen / Unknown 06/22/2025 11:39 AM EDT 06/22/2025 1:35 PM EDT Mili Verdin MD LAB BLOOD ORDERABLES Final Resul t Performing Organization Address [facility] de Phone Number [facility] [address] [place] [phone] * Lipase (06/22/2025 11:39 AM EDT) Lipase 20 8 - 78 U/L [facility] Blood Venous blood specimen / Unknown 06/22/2025 11:39 AM EDT 06/22/2025 1:35 PM EDT Mili Verdin MD LAB BLOOD ORDERABLES Final Resul t Performing Organization Address [facility] de Phone Number [facility] [address] [place] [phone] * Comprehensive Metabolic Panel (06/22/2025 11:39 AM EDT) Sodium 144 135 - 145 mmol/L [facility] Potassium 4.1 3.3 - 5.1 mmol/L [facility] Chloride 108 96 - 108 mmol/L [facility] Carbon Dioxide 26 22 - 29 mmol/L [facility] Anion Gap 14 12 - 20 [facility] Urea Nitrogen (BUN) 13 9 - 16 mg/dL [facility] Creatinine, Serum 0.66 0.5 - 1.4 mg/dL [facility] Estimated Glomerular Filt Rate >60 [facility] Comment:Chronic Kidney Disea se: Estimated GFR < 60 mL/min/1.10g1Facpvz Kidney Disease: Estimated GFR < 15 mL/min/1.73m2 Glucose 94 60 - 115 mg/dL [facility] Calcium 9.5 8.4 - 10.2 mg/dL [facility] Bilirubin, Total 0.3 0.0 - 1.0 mg/dL [facility] Aspartate Amino Transferase 29 5 - 31 U/L [facility] Alanine Aminotransferase 27 0 - 31 U/L [facility] Total Protein 7.6 6.5 - 8.0 g/dL [facility] Albumin Level 4.3 3.5 - 5.0 g/dL [facility] Alkaline Phosphatase 95 39 - 117 U/L [facility] Blood Venous blood specimen / Unknown 06/22/2025 11:39 AM EDT 06/22/2025 1:35 PM EDT us Mili Verdni MD LAB BLOOD ORDERABLES Final Resul t [facility] [address] [place] [phone] * POCT glucose manually resulted (06/20/2025 3:59 PM EDT) Pathologist [facility] Glucose Blood, POC 122 60 - 200 mg/dL QC Media Lot # [id number] Lot# Expiration Date [id number] Blood Capillary blood specimen / Unknown 06/20/2025 3:59 PM EDT us Mili Verdin MD POINT OF CARE TEST ENTER/EDIT OR DERABLES Final Result * (ABNORMAL) POCT HGB A1C (05/11/2025 1:03 PM EDT) Hemoglobin A1C 8.1(A) 4.0 - 5.7 % QC Media Lot # [id number] Lot# Expiration Date ,[id number] Blood 05/11/2025 1:03 PM EDT Renan Aparicio MD POINT OF CARE TEST EN TER/EDIT ORDERABLES Final Result * BI Mammogram Screening Tomosynthesis Bilateral (02/24/2025 1:53 PM EDT) Anatomical Region Laterality Modality Breast Bilateral Mammography 02/24/2025 1:53 PM EDT Narrative 03/05/2025 9:42 AM EDT [facility] [address] [place], [place] [address] Mammography Report Signed Patient: Naa Pedersen MR#: [id number] : 1955 Acct:[id number] Age/Sex: 69 / F ADM Date: 02/24/25 Loc: [facility] Attending Dr: Renan Cabral MD Ordering Physician: Renan Cabral MD Resu lts: 1Negative Date of Service: 02/24/25 Follow Up: 1 Year From Orig inal Mammogram Procedure(s): MM tomosynthesis screening BI Accession Number(s): [id number] cc: Renan Cabral MD EXAMINATION: MM SCREENING [...] 03/05/25 0940 DD/ 1353 TD/TT: 02/24/25 1403 Restaurant Delivery Driver: Procedure Note Donotuseinterpreter, Image - 03/05/2025 [facility] [address] [place] [address] Mammography Report Signed Patient: Naa Pedersen EMR#: [id number] : 6Acct:[id number] Age/Sex: 69 / FADM Date: 02/24/25 Loc: HO.MAMMO Attending Dr: Renan Cabral MD Ordering Physician: Renan Cabral MDResu lts: 1Negative Date of Service: 02/24/25Follow Up: 1 Year From Orig inal Mammogram Procedure(s): MM tomosynthesis screening BI Accession Number(s): [id number] cc: Renan Cabral MD EXAMINATION: MM SCREENING [...] 03/05/25 0940 DD/ 1353 TD/TT: 02/24/25 1403 Restaurant Delivery Driver: us Renan Aparicio MD IMG BI PROCEDURES Robert genia Result - Final * Hepatitis C Ab (01/12/2025 2:04 PM EST) Hepatitis C Antibody Nonreactive Nonreactive [facility] Comment:Antibodies to HCV no t detected; does not exclude early acuteHCV infection. 01/12/2025 2:04 PM EST 01/12/2025 2:04 PM EST us Generic External Data Provider LAB BLOOD ORDERAB LES Final Result [facility] [address] [place] [phone] * (ABNORMAL) Lipid Panel, Standard (01/12/2025 2:04 PM EST) Triglycerides 271(H) <150 mg/dL [facility] Comment:Desirable Triglyceri de: less than 150 mg/dLBorderline High Triglyceride 150-199 mg/dLHigh Triglyceride: 200-499 mg/dLVery High Triglyceride: greater than or equal to 5OO mg/dL Cholesterol 270(H) <200 mg/dL [facility] Comment:Desirable Cholestero l: less than 200 mg/dLBorderline High Cholesterol: 200-239 mg/dLHigh Cholesterol: greater than 239 mg/dL LDL Cholesterol Calculated 173(H) <100 mg/dL [facility] Comment:Desirable LDL: less than 100 mg/dLNear Optimal/Above Optimal LDL: 110- 129 mg/dLBorderline High LDL: 130-159 mg/dLHigh LDL: 160-189 mg/dLVery High LDL: greater than or equal to 190 mg/dL HDL Cholesterol 43 >40 mg/dL [facility] Comment:Desirable HDL: great er than 40 mg/dL Note: This HDL assay may give artificially low results in patients with liver disease. 01/12/2025 2:04 PM EST 01/12/2025 2:04 PM EST us Generic External Data Provider LAB BLOOD ORDERAB LES Final Result [facility] [address] [place] [phone] * ALBUMIN, RANDOM URINE W/CREATININE (12/19/2021 [...] MD LAB URINE ORDERABLES Final Result [facility] [address] from Last 3 Months or Most Recently Relevant to Health Maintenance Insurance MEDICARE [facility] STANDARD MEDICARE Care Teams Compensation Analyst Relationship Specialty Start Date End Date Renan Lawson MD [address] [place] [phone] PCP - General Internal Medicine 12/10/21 Richelle Albarado, Toni [address] [place] [address] Pharmacist Internal Medicine 10/25/24
--- OUTSIDE RECORDS SUMMARY | 2025-09-20 16:23 | XMS_ITS | Encounter Summary ---
Author Organization [facility] Address [address] [facility] [address] [place] [address] Care Team Providers Care Food Production Manager Name Role Phone Renan Lawson MD Primary Care Provide r Edilberto Barahona PharmD Unavailable [phone] Richelle Albarado PharmD Unavailable [phone] Encounter Details Date Type Department Care Team (Late st Contact Info) Description 01/13/2023 Abstract [facility] MEDICINE [address] [place], [place] [phone] Renan Lawson MD [address] [place], [place] [phone] Social History Tobacco Use Types Packs/Day Years [...] 2:00 PM EST Medication Management [facility] MEDICINE [address] [place] [address] Richelle Albarado, Toni [address] [place] [address] documented as of this encounter Visit Diagnoses Not on filedocumented in this encounter Additional Health Concerns Assessment Noted Time PHQ-9 Depression Total Score: 0 12/02/19 10:15 AM EST documented as of this encounter Care Teams Food Production Manager Relationship Specialty Start Date End Date Renan Lawson MD [address] [place] [phone] PCP - General Internal Medicine 12/10/21 Edilberto Barahona PharmD [address] [place] [phone] Pharmacist Internal Medicine 07/14/23 10/24/24 Richelle Albarado PharmD [address] [place] [phone] Pharmacist Internal Medicine 10/25/24 documented as of this encounter
--- OUTSIDE RECORDS SUMMARY | 2025-09-20 16:23 | XMS_ITS | Encounter Summary ---
Author Organization [employer] Address [address] [facility] [address] [place] [address] Care Team Providers Care Or Rn Name Role Phone Renan Lawson MD Primary Care Provide r Edilberto Barahona PharmD Unavailable [phone] Richelle Albarado PharmD Unavailable [phone] Reason for Visit * Reason Comments Med Refill Encounter Details Date Type Department Care Team ([facility] st Contact Info) Description 08/26/2024 Refill [facility] MEDICINE [address] [place], [place] [phone] Renan Lawson MD [address] [place], [place] [phone] Social History Tobacco Use Types Packs/Day Years [...] Description 09/25/2025 2:00 PM EST Medication Management [facility] MEDICINE [address] [place] [address] Richelle Albarado PharmD [address] [place] [address] documented as of this encounter Goals Goal [...] documented as of this encounter Care Teams Or Rn Relationship Specialty Start Date End Date Renan Lawson MD [address] [place] [address] PCP - General Internal Medicine 12/10/21 Edilberto Barahona, PharmD [address] [place] [address] Pharmacist Internal Medicine 07/14/23 10/24/24 Richelle Albarado, KyD [address] [place] [address] Pharmacist Internal Medicine 10/25/24 documented as of this encounter
--- OUTSIDE RECORDS SUMMARY | 2025-09-20 16:23 | XMS_ITS | Patient Health Record ---
Author Organization [facility] Address [address] [place] [address] Care Team Providers Care Mail Messenger Name Role Phone Deandre Aparicio MD, Renan Primary Care Provide r Unavailable Eric Emmanuel Unavailable [phone] Reason For Referral No Information Plan Of Treatment No Information Insurance Providers Payer Name Payer Address Payer Phone Subscriber Number Group Number Insured Name Patient Relationship to Insured Coverage Start Date Coverage End Date [place]ARE OF [place] [address] [place] [phone] [id number] [employer] Self - patient is the insured MEDICAID OF [facility] [address] [place] [address] [id number] [employer] Self - patient is the insured
--- OUTSIDE RECORDS SUMMARY | 2025-09-20 16:23 | XMS_ITS | Encounter Summary ---
Author Organization [employer] [facility] Address [address] [facility] 7t [place] [address] Care Team Providers Care Quick Mixer Operator Name Role Phone Renan Lawson MD Primary Care Provide r Edilberto Barahona PharmD Unavailable [phone] Richelle Albarado PharmD Unavailable [phone] Reason for Referral * Imaging (Routine) - Closed Specialty Diagnoses / Procedures Referred By Tiffany milian Referred To Contact Radiology Diagnoses Right lower quadrant abdominal pain Procedures US Pelvis Transvaginal Moira Edouard FNP [address] [place] [address] Phone: tel: fax: [address] Phone: tel: fax: Referral ID Status Reason Start Date Expiration Date Visits Re quested Visits Authorized [id number] Closed 08/07/2023 08/06/2024 1 1 Encounter Details Date Type Department Care Team (Late st Contact Info) Description 08/07/2023 Orders Only [facility] [address] [place] [address] Moira Edouard FNP [address] [place] [address] Right lower quadrant abdominal pain (Primary Dx) [...] 2:00 PM EST Medication Management [facility] [address] [place] [address] Richelle Albarado PharmD [address] [place] [address] documented as of this encounter Goals Goal [...] AM EST Narrative 10/08/2023 5:03 PM EST [address] [address] Ultrasound Report Signed Patient: Naa Pedersen MR#: [id number] : 1955 Acct:[id number] Age/Sex: 67 / F ADM Date: 10/07/23 Loc: HO.US Attending Dr: Moira Edouard NP Ordering Physician: Moira Edouard NP Date of Service: 10/07/23 Procedure(s): US pelvic and transvaginal Accession Number(s): [id number] cc: Moira Edouard NP; Renan Cabral MD [...] in OV> 10/08/23 1659 DD/ 1146 TD/TT: Superintendent Renting Managing: Procedure Note Donotuseinterpreter, Image - 10/08/[address] [address] Ultrasound Report Signed Patient: Naa Pedersen EMR#: [id number] : 6Acct:[id number] Age/Sex: 67 / FADM Date: 10/07/23 Loc: HO.US Attending Dr: Moira Edouard NP Ordering Physician: Moira Edouard NP Date of Service: 10/07/23 Procedure(s): US pelvic and transvaginal Accession Number(s): [id number] cc: Moira Edouard VINE FRUIT FARMING SUPERVISOR; Renan Cabral MD EXAMINATION: US PELVIS CLINICAL [...] in OV> 10/08/23 1659 DD/ 1146 TD/TT: Superintendent Renting Managing: us Moira Edouard HUMAN RESOURCES SUPPORT SPECIALIST IMG US PROCEDURES Final Result documented in this encounter Visit Diagnoses Diagnosis Right lower quadrant abdominal pain- Primary documented in this encounter Additional Health Concerns Assessment Noted Time PHQ-9 Depression Total Score: 0 12/02/19 10:15 AM EST documented as of this encounter Care Teams Quick Mixer Operator Relationship Specialty Start Date End Date Renan Lawson MD [address] [place] [id number] PCP - General Internal Medicine 12/10/21 Edilberto Barahona, KyD [address] [place] [address] Pharmacist Internal Medicine 07/14/23 10/24/24 Richelle Albarado PharmD [address] [place] [address] Pharmacist Internal Medicine 10/25/24 documented as of this encounter
== END 2025-09-20 13:59 | disposition home or self-care (01) ==
LOC: HO.HCS 13:30
PROVIDERS: PCP Internal Medicine; Visit Provider Internal Medicine
DX: I25.10 Atherosclerotic heart disease of native coronary artery without angina pectoris (principal); I45.10 Unspecified right bundle-branch block; E11.8 Type 2 diabetes mellitus with unspecified complications; I10 Essential (primary) hypertension; E78.5 Hyperlipidemia, unspecified; G47.33 Obstructive sleep apnea (adult) (pediatric); Z99.89 Dependence on other enabling machines and devices
CPT/HCPCS: 93010; 99214; G2211

== ENCOUNTER → 2025-09-20 13:30 | Outpatient (BNVA) | payer MEDICARE, MEDICAID, SELFPAY | PROVIDERS: PCP Internal Medicine; Visit Provider Internal Medicine | DX: I10 Essential (primary) hypertension (principal); I45.10 Unspecified right bundle-branch block; I25.10 Atherosclerotic heart disease of native coronary artery without angina pectoris; E78.5 Hyperlipidemia, unspecified; E11.65 Type 2 diabetes mellitus with hyperglycemia; Z79.4 Long term (current) use of insulin; Z79.82 Long term (current) use of aspirin; Z79.85 Long-term (current) use of injectable non-insulin antidiabetic drugs; G47.33 Obstructive sleep apnea (adult) (pediatric); Z99.89 Dependence on other enabling machines and devices; I25.84 Coronary atherosclerosis due to calcified coronary lesion | CPT/HCPCS: 93005; 99212 ==

== ENCOUNTER 2025-09-26 15:22 | Outpatient (AMB) | payer MEDICARE, MEDICAID, SELFPAY ==
--- NOTE | 2025-09-26 16:00 | MHC.OFFVIS ---
Intake Visit Reasons: 3m/PVR Intake Note: Patient presents to office today for a 3m follow up/PVR Urology Medications: Estradiol Blood Thinner: Aspirin Antibiotic Allergy:None PVR:0ml Fig Bar Machine Operator Required: Yes Fig Bar Machine Operator Services: Fig Bar Machine Operator Present Fig Bar Machine Operator Name: Yan Accompanied by: Self / Same As Patient Allergies bee pollen (BEE STINGS) Allergy (Unknown, Verified 09/26/25 16:43) ANAPHYLAXIS morphine (MORPHINE) Allergy (Unknown, Verified 09/26/25 16:43) ITCHING Medication List - Last Reconciled 09/26/25 by AJ Delatorre- albuterol sulfate 2.5 mg (3 mL) inhalation Q4H PRN 30 days albuterol sulfate 90 mcg/actuation (Ventolin HFA) 2 puffs PO QID PRN alirocumab (Praluent Pen) 75 mg subcut Q2W amitriptyline 200 mg PO BEDTIME amlodipine 10 mg PO DAILY 90 days ascorbic acid (vitamin C) 1 g PO DAILY 90 days aspirin 81 mg PO DAILY atorvastatin 80 mg PO DAILY benzonatate 200 mg PO BID PRN 30 days blood sugar diagnostic (FreeStyle Lite Strips) Test four times a day or as directed. blood-glucose meter (FreeStyle Lite Meter kit) As Directed bahntfqsij-ouaimrpjioxxj-spzq 50-325-40 mg 1 tab PO TID PRN cetirizine 10 mg PO BEDTIME cholecalciferol (vitamin D3) 50 mcg PO DAILY clonazepam 1 mg PO BID PRN cyanocobalamin (vitamin B-12) 1,000 mcg PO DAILY cyclobenzaprine 5 mg PO TID PRN 7 days dulaglutide (Trulicity) mg subcut epinephrine 3 mg IM DIRECTED estradiol 0.01%(0.1mg/gram) (Estrace) 1 g vaginal 3XW 90 days ezetimibe (Zetia) 10 mg PO DAILY 90 days fluticasone propionate 50 mcg/actuation 2 sprays intranasal DAILY insulin lispro (Humalog KwikPen (U-100) Insulin) 1 sliding scale dose subcut QIDACHS lancets (FreeStyle Lancets) Test four times a day or as directed. lancets (TRUEplus Lancets) As directed lisinopril 10 mg PO DAILY metformin ER 1,000 mg PO QAM methenamine hippurate 1 g PO DAILY 90 days metoclopramide HCl 5 mg PO TID mirtazapine 45 mg PO BEDTIME nebulizers As directed nitroglycerin 0.4 mg sublingual Q5M PRN omeprazole 40 mg PO BID pen needle, diabetic Use four times a day or as directed. pregabalin 200 mg PO BID sennosides (senna) 17.2 mg (2 x 8.6 mg) PO BEDTIME 30 days simethicone 180 mg PO QID PRN topiramate 100 mg PO BID trazodone 100 mg PO BEDTIME venlafaxine ER 37.5 mg PO DAILY HPI Comments Details: Naa is a pleasant 69 year old Greek speaking patient of Dr. Cabral. She has a PMH of obstructive sleep apnea on CPAP, chronic restrictive lung disease, chronic allergic rhinitis, asthma, hypertension, type 2 diabetes, and ACD. She presents to the office today for a follow-up of her recurrent urinary tract infections. In discussion with the patient today she reports compliance with methenamine, vitamin-C, and Estrace cream as prescribed. She denies having had any UTIs and or UTI like symptoms since sometime in May. She reports her main concern at this time is left lower lumbar discomfort she has been experiencing that she feels radiates down her left lower extremity. She reports having followed up with her PCP in his due to follow-up again later this week. In office urinalysis results reviewed with the patient today. PVR 0 mL. Previous urine cultures were reviewed as noted and trended below: Urine culture: 04/01 E coli, 05/02 E coli, 07/02 E coli, 09/01 E coli, 10/02 E coli, 01/31 E coli, 06/02 E coli urine Cytology: 07/02 Negative for high-grade urothelial carcinoma Previous workup has included a bladder and renal ultrasound 08/02 that noted bilateral kidneys with no hydronephrosis or renal calculi. Right kidney with benign simple cyst which requires no additional follow-up per radiology report. The bladder is well distended and normal. No bladder mass or diverticula is seen. Pre void bladder volume is approximately 515 mL. Postvoid bladder volume is approximately 90 mL. We discussed at length potential causes of recurrent urinary tract infections as well as further treatment options and risks and benefits of these treatment options. When asked she denies urinary urgency, urinary frequency, incontinence, nocturia, hematuria, dysuria, foul smelling urine, changes to urinary stream, flank pain, fever, and or chills. She is happy with her current voiding parameters. We did discuss in office cystoscopy given recurrent urinary tract infections. She would like to think about this. All questions were answered. She otherwise offers no other issues or concerns at this time. [facility] Medical History EDWIN (obstructive sleep apnea) Periumbilical abdominal pain EDWIN on CPAP Chronic restrictive lung disease Chronic allergic rhinitis Asthma Other and unspecified hyperlipidemia Essential hypertension Type 2 diabetes mellitus with unspecified complications Atherosclerotic cardiovascular disease Surgical History History of esophagogastroduodenoscopy (EGD) Hx of colonoscopy Family History Mother HTN (hypertension) Heart disease Asthma Maternal Aunt Breast cancer Maternal Aunt Tumor Maternal Aunt Cancer Social History Household Members: Spouse and Family Household Members Other:: 4 household members Housing: Apartment Do you presently have visiting nurse or other home services: No Alcohol intake: never Patient Tobacco Use Status: Never used Tobacco service: No Review of Systems Eyes Reports no additional complaints ENT Reports as per HPI Card Reports as per HPI Resp Reports as per HPI GI Reports as per HPI Reports as per HPI Musc Reports no additional complaints Neuro Reports no additional complaints Psych Reports no additional complaints Endo Reports as per HPI Leo/Lymph Reports no additional complaints Aller/Immun Reports no additional complaints Physical Exam Const General: cooperative, healthy appearing, comfortable, no acute distress, well developed, alert and awake Nutritional Appearance: obese Orientation/consciousness: patient oriented x3 Limitations: language barrier HEENT Head: Yes normal to inspection, Yes normocephalic and Yes atraumatic Ears: hearing grossly normal bilaterally Eyes General: appearance normal, both eyes and all related structures Neck Neck: Yes normal visual inspection and Yes trachea midline Chest Chest palpation & inspection: normal inspection of the chest Resp Effort & Inspection: normal respiratory effort and able to speak in complete sentences Cardio Rate: regular rate GI Inspection: Yes normal to inspection General: Yes no CVA tenderness Back/Spine/Pelvis Back: no CVA tenderness Skin General skin exam: no rashes or lesions noted Neuro General: patient oriented x3 Extrem General: Yes normal to inspection Psych Appearance: grossly normal and well kempt Mental Status: mental status grossly normal Speech and movement: Normal speech and movement present and Clear speech present Affect: normal affect Attitude: cooperative Thought process: Normal thought process present Thought content: Normal thought content present Insight: Fair insight present (Psych) Judgement: Fair judgement present (Psych) Assessment & Plan Assessment & Plan (1) Renal cyst: Code(s): N28.1 - Cyst of kidney, acquired Category: Medical (2) Recurrent UTI: Code(s): N39.0 - Urinary tract infection, site not specified Category: Medical Plan In office urinalysis results reviewed with the patient today; as noted above. PVR 0 mL. She currently denies any bothersome urinary issues. She reports be happy with current voiding parameters. Will obtain retroperitoneal ultrasound for further assessment evaluation. Continue methenamine, vitamin-C, and Estrace cream as discussed and prescribed. We did discussed potential causes of recurrent urinary tract infections as well as renal cyst. Follow-up in 3 months with imaging and PVR; or sooner with any issues, concerns, and or questions. Orders: Orders AMB Post Void Residual by ultrasound Today N39.0 - Urinary tract infection, site not specified, R82.90 - Unspecified abnormal findings in urine US retroperitoneal comp Today N28.1 - Cyst of kidney, acquired, N39.0 - Urinary tract infection, site not specified AMB Urinalysis Automated Today N39.0 - Urinary tract infection, site not specified, R82.90 - Unspecified abnormal findings in urine Coding Level of Care Code Est Pt Level 3 (36696) Complex EM visit Add On G2211 Diagnoses Renal cyst N28.1 Recurrent UTI N39.0
== END 2025-09-26 16:37 | disposition home or self-care (01) ==
LOC: HO.HUSH 15:23
PROVIDERS: PCP Internal Medicine; Visit Provider Nurse Practitioner Family
DX: N39.0 Urinary tract infection, site not specified (principal); R82.90 Unspecified abnormal findings in urine
CPT/HCPCS: 99213; G2211

== ENCOUNTER → 2025-09-26 15:22 | Outpatient (BNVA) | payer MEDICARE, MEDICAID, SELFPAY | PROVIDERS: PCP Internal Medicine; Visit Provider Nurse Practitioner Family | DX: N28.1 Cyst of kidney, acquired (principal); N39.0 Urinary tract infection, site not specified; R82.90 Unspecified abnormal findings in urine; Z13.9 Encounter for screening, unspecified | CPT/HCPCS: 81003; 99212 ==

== ENCOUNTER 2025-10-04 08:50 | Outpatient (AMB) | payer MEDICARE, MEDICAID, SELFPAY ==
--- NOTE | 2025-10-04 08:52 | A.OFFVIS_ITS ---
Vital Signs 10/04/25 08:57 Height 5 ft 6 in Weight 205 lb BMI 33.1 Intake Visit Reasons: OV-left knee pain Intake Note: Naa is a 69 year old female who presents today for a follow up with complaints of left knee pain. At her last visit on 06/19/25, she was given a left knee injection. Patient reports injection helped for about a month. Complaints of constant knee pain. She was recently seen at [facility] due to increased pain that was traveling from her foot to her hip. She was prescribed prednisone and oxycodone as needed for her pain. Senior Technical Architect Required: Yes Senior Technical Architect Services: Senior Technical Architect Present Senior Technical Architect Name: Erick ID#[id number] Allergies bee pollen (BEE STINGS) Allergy (Unknown, Verified 10/04/25 09:05) ANAPHYLAXIS morphine (MORPHINE) Allergy (Unknown, Verified 10/04/25 09:05) ITCHING HPI HPI OV-left knee pain: Details: 69 yo female returns to the office today f/u lt knee pain s/p injection 06/19/25. She states the injection was helpful for pain but she did not feel her activity level improved. She has pain in the anterior and medial aspect of the knee. [facility] Medical History EDWIN (obstructive sleep apnea) Periumbilical abdominal pain EDWIN on CPAP Chronic restrictive lung disease Chronic allergic rhinitis Asthma Other and unspecified hyperlipidemia Essential hypertension Type 2 diabetes mellitus with unspecified complications Atherosclerotic cardiovascular disease Surgical History History of esophagogastroduodenoscopy (EGD) Hx of colonoscopy Family History Mother HTN (hypertension) Heart disease Asthma Maternal Aunt Breast cancer Maternal Aunt Tumor Maternal Aunt Cancer Social History Household Members: Spouse and Family Household Members Other:: 4 household members Housing: Apartment Do you presently have visiting nurse or other home services: No Alcohol intake: never Patient Tobacco Use Status: Never used Tobacco service: No Review of Systems Const All systems reviewed & are unremarkable except as noted in HPI and below Physical Exam Vital Signs: BMI result Body Mass Index 33.1 Extrem Other: Left knees are to inspection she has diffuse medial and lateral joint line tenderness. full range of motion crepitus. Neurovascularly intact. Assessment & Plan Assessment & Plan (1) Patellofemoral arthritis of left knee: Code(s): M17.12 - Unilateral primary osteoarthritis, left knee Category: Medical Plan: We discussed options which include gel injections which she is interested in. I will have the office submit for authorization and contact her once approved. We also discussed MRI imaging, an MRI of the left knee has been ordered to further evaluate the extent of the OA and determine the next step in treatment . She is content with this plan and will f/u accordingly. Coding Level of Care Code Complex visit Add On G2211 Diagnoses Patellofemoral arthritis of left knee M17.12
[2025-10-04 08:57] VITALS: BMI 33.1
--- OUTSIDE RECORDS SUMMARY | 2025-10-04 09:18 | XMS_ITS | Encounter Summary ---
Author Organization [employer] Address [address] 7[address] [place] [address] Care Team Providers Care Public Health Professor Name Role Phone Renan Lawson MD Primary Care Provide r Edilberto Barahona PharmD Unavailable [phone] Richelle Albarado PharmD Unavailable [phone] Reason for Visit * Reason Comments Med Refill Encounter Details Date Type Department Care Team ([facility] st Contact Info) Description 02/09/2024 Refill [facility] [address] [place], [place] [phone] eRnan Lawson MD [address] [place], [place] [phone] Fibromyalgia Social History Tobacco Use Types Packs/Day [...] Care Team (Late st Contact Info) Description 11/13/2025 1:00 PM EST Medication Management [facility] [address] [place] [address] Richelle Albarado PharmD [address] [place] [address] documented as of this encounter Goals Goal Patient Goal Type Associated Problems Recent Progress Patient-Stated? Author Blood Pressure < 140/90 Blood Pressure 158/76(2024 1:39 PM EST) No Edilberto Barahona PharmD Blood Pressure < 140/90 Blood Pressure Hypertension 158/76(2024 1:39 PM EST) No Edilberto Barahona, PharmD Keep fasting blood glucose between 70 and 130 Result Component No Danie Barahonaril, PharmD Keep fasting blood glucose between 70 and 130 Result Component Diabetes mellitus type 2 with neurological manifestations On track( 023 2:54 PM EDT) No Virginia Barahonal, PharmD Hemoglobin A1c < 7.0 Result Component Diabetes mellitus type 2 with neurological manifestations 6.3( 2:39 PM EST) No Edilberto Barahona PharmD documented as of this encounter Visit Diagnoses Diagnosis Fibromyalgia Unspecified myalgia and myositis documented in this encounter Additional Health Concerns Assessment Noted Time PHQ-9 Depression Total Score: 6 12/29/19 24 1:36 PM EST documented as of this encounter Care Teams Public Health Professor Relationship Specialty Start Date End Date Renan Lawson MD [address] [place] [address] PCP - General Internal Medicine 12/10/21 Edilberto Barahona PharmD [address] [place] [address] Pharmacist Internal Medicine 07/14/23 10/24/24 Richelle Albarado PharmD [address] [place] [address] Pharmacist Internal Medicine 10/25/24 documented as of this encounter
--- OUTSIDE RECORDS SUMMARY | 2025-10-04 09:18 | XMS_ITS | Encounter Summary ---
Author Organization [employer] Address [address] [facility] [address] [place] [address] Care Team Providers Care Rehabilitation Services Aide Name Role Phone Renan Lawson MD Primary Care Provide r Edilberto Barahona PharmD Unavailable [phone] Richelle Albarado PharmD Unavailable [phone] Encounter Details Date Type Department Care Team (Late Contact Info) Description 10/22/2022 Orders Only [facility] [address] [place] [address] Denise Leyva LPN Social History Tobacco Use [...] Description 11/13/2025 1:00 PM EST Medication Management [facility] [address] [place] [address] Richelle Albarado PharmD [address] [place] [address] documented as of this encounter Visit Diagnoses Not on filedocumented in this encounter Care Teams Rehabilitation Services Aide Relationship Specialty Start Date End Date Renan Lawson MD [address] [place] [address] PCP - General Internal Medicine 12/10/21 Edilberto Barahona, KyD [address] [place] [address] Pharmacist Internal Medicine 07/14/23 10/24/24 Richelle Albarado PharmD [address] [place] [address] Pharmacist Internal Medicine 10/25/24 documented as of this encounter
--- OUTSIDE RECORDS SUMMARY | 2025-10-04 09:18 | XMS_ITS | Encounter Summary ---
Author Organization [employer] Address [address] [facility] [address] [place] [address] Care Team Providers Care Pie Maker Machine Name Role Phone Renan Lawson MD Primary Care Provide r Richelle Albarado PharmD Unavailable [phone] Reason for Visit * Reason Comments Med Refill Encounter Details Date Type Department Care Team ([facility] st Contact Info) Description 10/01/2025 Refill [facility] [address] [place] [address] Renan Lawson MD [address] [place] [address] Diabetes mellitus type 2 with neurological manifestations (HCC) Social History Tobacco Use Types Packs/Day Years [...] housing situation today? I have vamshi sing 01/18/[address] you li [...] Description 11/13/2025 1:00 PM EST Medication Management [facility] [address] [place] [address] Richelle Albarado PharmD [address] [place] [address] documented as of this encounter Goals Goal Patient Goal Type Associated Problems Recent Progress Patient-Stated? Author Blood Pressure < 140/90 Blood Pressure 158/76(2024 1:39 PM EST) No Edilberto Barahona PharmPercy Blood Pressure < 140/90 Blood Pressure Hypertension 158/76(2024 1:39 PM EST) No Edilberto Barahona PharmD Keep [...] neurological manifestations 6.3( 2:39 PM EST) No BarahonaEdilberto kirk PharmD Help patients manage their type 2 diabetes Care Plan Help patients manage their type 2 diabetes No Richelle Albarado PharmD Weekly blood pressure task Care Plan Weekly blood pressure task No Richelle Albarado PharmPercy Help patients manage their type 2 diabetes Care Plan Help patients manage their type 2 diabetes No Richelle Albarado PharmPercy Patient has chronic kidney disease Care Plan Patient has chronic kidney disease No Richelle Albarado PharmD Weekly blood pressure task Care Plan Weekly blood pressure task No Richelle Albarado PharmPercy Patient has chronic kidney disease Care Plan Patient has chronic kidney disease No Richelle Albarado PharmD Weekly blood pressure task Care Plan Weekly blood pressure task No [place] Weekly blood pressure task Care Plan Weekly blood pressure task No [place] Patient has chronic kidney disease Care Plan Patient has chronic kidney disease No [place] Patient has chronic kidney disease Care Plan Patient has chronic kidney disease No [place] Weekly blood pressure task Care Plan Weekly blood pressure task No Ashtyn Dill NP Weekly blood pressure task Care Plan Weekly blood pressure task No Ashtyn Dill NEWS PRODUCER Patient has chronic kidney disease Care Plan Patient has chronic kidney disease No Ashtyn Dill NEWS PRODUCER Patient has chronic kidney disease Care Plan Patient has chronic kidney disease No Ashtyn Dill NP Weekly blood pressure task Care Plan Weekly blood pressure task No Socorro Sampson RN Weekly blood pressure task Care Plan Weekly blood pressure task No Socorro Sampson RN Patient has chronic kidney disease Care Plan Patient has chronic kidney disease No Socorro Sampson, RN Patient has chronic kidney disease Care Plan Patient has chronic kidney disease No Socorro Sampson RN documented as of this encounter Visit Diagnoses Diagnosis Diabetes mellitus type 2 with neurological manifestations (HCC) documented in this encounter Additional Health Concerns Active Problems Noted Date Diagnosed Date Help patients manage their type 2 diabetes 09/25 Weekly blood pressure task 09/25/2025 Help patients manage their type 2 diabetes 09/25 Patient has chronic kidney disease 09/25/2025 Weekly blood pressure task 09/25/2025 Patient has chronic kidney disease 09/25/2025 Weekly blood pressure task 09/25/2025 Weekly blood pressure task 09/25/2025 Patient has chronic kidney disease 09/25/2025 Patient has chronic kidney disease 09/25/2025 Weekly blood pressure task 09/25/2025 Weekly blood pressure task 09/25/2025 Patient has chronic kidney disease 09/25/2025 Patient has chronic kidney disease 09/25/2025 Weekly blood pressure task 09/29/2025 Weekly blood pressure task 09/29/2025 Patient has chronic kidney disease 09/29/2025 Patient has chronic kidney disease 09/29/2025 Assessment Noted Time PHQ-9 Depression Total Score: 6 12/29/19 24 1:36 PM EST documented as of this encounter Care Teams Pie Maker Machine Relationship Specialty Start Date End Date Renan Lawson MD [address] [place] [address] PCP - General Internal Medicine 12/10/21 Richelle Albarado PharmD [address] [place] [address] Pharmacist Internal Medicine 10/25/24 documented as of this encounter
--- OUTSIDE RECORDS SUMMARY | 2025-10-04 09:18 | XMS_ITS | Encounter Summary ---
Author Organization [employer] Address [address] [place] [address] Care Team Providers Care Medical Accounts Receivable Specialist Name Role Phone Renan Lawson MD Primary Care Provide r Richelle Albarado PharmD Unavailable [phone] Reason for Visit * Reason Onset Date Comments Status Check 09/29/2025 Encounter Details Date Type Department Care Team ([facility] Contact Info) Description 09/29/2025 Telephone [facility] [address] [place], [place] [phone] Ashtyn Dill NP [address] [place], [place] [phone] Status Check Social History Tobacco Use Types Packs/Day Years [...] encounter Miscellaneous Notes * Telephone Encounter - Socorro Sampson RN - 09/29/2025 3:55 PM EST TC x 2 placed to pt at phone number [phone] via [employer] ([employer] ID#[id number]) per below provider message. No answer, unable to LVM as voicemail box is full. TC placed to pt at phone number [phone]. Per instructor bus trolley and taxi, number is restricted or is unavailable. Message forwarded to [employer] for review. ----- Message from Ashtyn Dill sent at 09/26/2025 1:51 PM EST ----- Please call pt on Saturday 09/29 to check in on sciatica, if no improvement with prednisone prescription, it is important pt discontinues medication on . If helpful continue taper as prescribed. Please also check how blood sugars are at home with prednisone thank you documented in this encounter Plan of Treatment Upcoming Encounters Date Type Department Care Team ([facility] st Contact Info) Description 11/13/2025 1:00 PM EST Medication Management [facility] [address] [place] [address] Richelle Albarado PharmD [address] [place] [address] documented as of this encounter Goals Goal [...] 6.3( 2:39 PM EST) No Edilberto Barahona PharmPercy Help patients manage their type 2 diabetes Care Plan Help patients manage their type 2 diabetes No Richelle Albarado PharmD Weekly blood pressure task Care Plan Weekly blood pressure task No Richelle Albarado PharmD Help patients manage their type 2 diabetes Care Plan Help patients manage their type 2 diabetes No Richelle Albarado PharmD Patient has chronic kidney disease Care Plan Patient has chronic kidney disease No Richelle Albarado PharmD Weekly blood pressure task Care Plan Weekly blood pressure task No Richelle Albarado PharmD Patient has chronic kidney disease Care Plan Patient has chronic kidney disease No Richelle Albarado PharmD Weekly blood pressure task Care Plan Weekly blood pressure task No Ted [place] Weekly blood pressure task [...] blood pressure task No Ashtyn Dill NP Patient has chronic kidney disease Care Plan Patient has chronic kidney disease No Ashtyn Dill NP Patient has chronic kidney disease Care Plan [...] filedocumented in this encounter Additional Health Concerns Active [...] as of this encounter Care Teams Medical Accounts Receivable Specialist Relationship Specialty Start Date End Date Renan Lawson MD [address] [place] [address] PCP - General Internal Medicine 12/10/21 Richelle Albarado PharmD [address] [place] [address] Pharmacist Internal Medicine 10/25/24 documented as of this encounter
--- OUTSIDE RECORDS SUMMARY | 2025-10-04 09:18 | XMS_ITS | Encounter Summary ---
Author Organization [employer] Address [address] [place] [address] Care Team Providers Care Assembler Molded Frames Name Role Phone Renan Lawson MD Primary Care Provide r Edilberto Barahona PharmD Unavailable [phone] Richelle Albarado PharmD Unavailable [phone] Encounter Details Date Type Department Care Team (Late st Contact Info) Description 12/17/2022 Abstract [facility] [address] [place], [place] [phone] Renan Lawson MD [address] [place], [place] [phone] Social History Tobacco Use Types Packs/Day Years [...] Description 11/13/2025 1:00 PM EST Medication Management [facility] [address] [place] [address] Richelle Albarado, Toni [address] [place] [address] documented as of this encounter Visit Diagnoses Not on filedocumented in this encounter Additional Health Concerns Assessment Noted Time PHQ-9 Depression Total Score: 0 12/02/19 10:15 AM EST documented as of this encounter Care Teams Assembler Molded Frames Relationship Specialty Start Date End Date Renan Lawson MD [address] [place] [phone] PCP - General Internal Medicine 12/10/21 Edilberto Barahona PharmD [address] [place] [phone] Pharmacist Internal Medicine 07/14/23 10/24/24 Richelle Albarado PharmD [address] [place] [phone] Pharmacist Internal Medicine 10/25/24 documented as of this encounter
--- OUTSIDE RECORDS SUMMARY | 2025-10-04 09:18 | XMS_ITS | Encounter Summary ---
Author Organization [employer] Address [address] [place] [address] Care Team Providers Care Masonry Inspector Name Role Phone Renan Lawson MD Primary Care Provide r Edilberto Barahona PharmD Unavailable [phone] Richelle Albarado PharmD Unavailable [phone] Encounter Details Date Type Department Care Team (Late st Contact Info) Description 01/13/2023 Abstract [facility] MEDICINE [address] [place], [place] [phone] Renan Lawson MD [address] [place], [place] [phone] Social History Tobacco Use Types Packs/Day Years [...] Description 11/13/2025 1:00 PM EST Medication Management [facility] [address] [place] [address] Richelle Albarado, Toni [address] [place] [address] documented as of this encounter Visit Diagnoses Not on filedocumented in this encounter Additional Health Concerns Assessment Noted Time PHQ-9 Depression Total Score: 0 12/02/19 10:15 AM EST documented as of this encounter Care Teams Masonry Inspector Relationship Specialty Start Date End Date Renan Lawson MD [address] [place] [phone] PCP - General Internal Medicine 12/10/21 Edilberto Barahona PharmD [address] [place] [phone] Pharmacist Internal Medicine 07/14/23 10/24/24 Richelle Albarado PharmD [address] [place] [address] Pharmacist Internal Medicine 10/25/24 documented as of this encounter
--- OUTSIDE RECORDS SUMMARY | 2025-10-04 09:18 | XMS_ITS | Encounter Summary ---
Author Organization [employer] [facility] Address [address] [place] [address] Care Team Providers Care Galvanizer Name Role Phone Renan Lawson MD Primary Care Provide r Edilberto Barahona PharmD Unavailable [phone] Richelle Albarado PharmD Unavailable [phone] Encounter Details Date Type Department Care Team ([facility] Contact Info) Description 11/14/2022 Telephone [facility] MEDICINE [address] [place], [place] [phone] Renan Lawson MD [address] [place] [address] [phone] Social History Tobacco Use Types Packs/Day Years [...] Upcoming Encounters Date Type Department Care Team ([facility] Contact Info) Description 11/13/2025 1:00 PM EST Medication Management [facility] MEDICINE [address] [place] [address] [phone] Richelle Albarado PharmD [address] [place] [address] documented as of this encounter Visit Diagnoses Not on filedocumented in this encounter Care Teams Galvanizer Relationship Specialty Start Date End Date Renan Lawson MD [address] [place] [phone] PCP - General Internal Medicine 12/10/21 Edilberto Barahona PharmD [address] [place] [phone] Pharmacist Internal Medicine 07/14/23 10/24/24 Richelle Albarado PharmD [address] [place] [phone] Pharmacist Internal Medicine 10/25/24 documented as of this encounter
--- OUTSIDE RECORDS SUMMARY | 2025-10-04 09:19 | XMS_ITS | Patient Health Record ---
Author Organization [facility] Address [address] [place] [address] Care Team Providers Care Orthodontist Vice President Name Role Phone Deandre Aparicio MD, Renan Primary Care Provide r Unavailable Eric Emmanuel Unavailable [phone] Reason For Referral No Information Plan Of Treatment No Information Insurance Providers Payer Name Payer Address Payer Phone Subscriber Number Group Number Insured Name Patient Relationship to Insured Coverage Start Date Coverage End Date [place] [address] [place] [phone] [id number] [employer] Self - patient is the insured MEDICAID OF [facility] [address] [place] [address] [id number] [employer] Self - patient is the insured
--- OUTSIDE RECORDS SUMMARY | 2025-10-04 09:19 | XMS_ITS | Encounter Summary ---
Author Organization [employer] Address [address] [place] [address] Care Team Providers Care Rocket Test Fire Worker Name Role Phone Renan Lawson MD Primary Care Provide r Edilberto Barahona PharmD Unavailable [phone] Richelle Albarado PharmD Unavailable [phone] Reason for Visit * Reason Onset Date Comments Reschedule 05/20/2023 Encounter Details Date Type Department Care Team ([facility] Contact Info) Description 05/20/2023 Telephone [facility]INE [address] [place], [place] [phone] Renan Lawson MD [address] [place], [place] [phone] Reschedule Social History Tobacco Use Types Packs/Day [...] knee injection appointment. Please contact pt at [phone] (Georgian speaker) documented in this encounter Plan of Treatment Upcoming Encounters Date Type Department Care Team (Late st Contact Info) Description 11/13/2025 1:00 PM EST Medication Management [facility] [address] [place], [place] [phone] Richelle Albarado PharmD [address] [place], [place] documented as of this encounter Goals [...] documented as of this encounter Care Teams Rocket Test Fire Worker Relationship Specialty Start Date End Date Renan Lawson MD [address] [place] [address] PCP - General Internal Medicine 12/10/21 Edilberto Barahona PharmD [address] [place] [address] [phone] Pharmacist Internal Medicine 07/14/23 10/24/24 Richelle Albarado PharmD [address] [place] [address] [phone] Pharmacist Internal Medicine 10/25/24 documented as of this encounter
--- OUTSIDE RECORDS SUMMARY | 2025-10-04 09:19 | XMS_ITS | Clinical Summary ---
Author Organization [employer] Address [address] [facility] 7[address] [place] [address] Care Team Providers Care Blanking Machine Operator Name Role Phone Renan Lawson MD Primary Care Provide r Richelle Albarado PharmD Unavailable [phone] Allergies Active Allergy Reactions Criticality Noted Date [...] HORAS CUANDO SEA NECESARIO FOR 30 DAYS 022 Active EPINEPHrine (EpiPen 2-Srini) 0.3 MG/0.3ML injection [...] injection PLEASE SEE ATTACHED FOR DETAILED DIRECTIONS 023 Active clonazePAM (KlonoPIN) 1 MG tablet 023 Active omeprazole (PriLOSEC) [address] capsuleIndication s:Davis's esophagus without dysplasia TAKE 1 CAPSULE BY MOUTH TWICE DAILY IN THE MORNING AND AT BEDTIME 60 capsule 4 023 Active venlafaxine XR (Effexor XR) 37.5 MG 24 hr capsule TOME EVELIO C PSULA TODOS LOS D EN MYESHA GALEANO 023 Active metoclopramide (Reglan) 5 MG tablet Take 5 mg by mouth 3 times daily. 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 RINSE MOUTH AFTER USING.. Active estradiol (Estrace) 0.1 MG/GM vaginal cream [...] injection or CGM placement). 100 each 3 10/02/20 25 11:34 AM EST 024 Active glucose blood (FreeStyle Precision Cheikh Test) test stripIndications: Diabetes mellitus type 2 with neurological manifestations (HCC) Use to test blood sugar up to 3 times daily, as directed 100 each 11 024 Active Continuous Glucose Maintainer Central Office (FreeStyle Richard 3 Maybrook) deviceIndications :Diabetes mellitus type 2 with neurological manifestations (HCC) 1 each 3 times daily. Use daily as directed for CGM 1 each 024 Active fluticasone (Flonase) 50 MCG/ACT nasal spray USE 2 SPRAYS IN EACH NOSTRIL ONCE DAILY 48 g 1 025 Active naproxen (Naprosyn) 500 MG tablet 025 Active Blood Pressure Monitoring (Blood Pressure Kit) kit Use to check blood pressure daily 1 kit 025 Active Continuous Glucose Sensor (FreeStyle Richard 3 Plus Sensor) misc 1 each every 15 days. Apply 1 every 15 days as directed for CGM 2 each 11 025 Active atorvastatin (Lipitor) 80 MG tabletIndications [...] 1 025 Active ezetimibe (Zetia) 10 MG tabletIndications :Mixed hyperlipidemia TAKE 1 TABLET BY MOUTH DAILY IN THE MORNING 90 tablet 1 025 Active Dulaglutide (Trulicity) 3 MG/0.5ML solution auto-injectorIndi cations:Diabetes mellitus type 2 with neurological manifestations (HCC) Inject 3 mg under the skin 1 (one) time per week. 2 mL 11 10/02/20 25 11:34 AM EST 025 Active Ascorbic Acid (vitamin C) 1000 MG tablet Take 1,000 mg by mouth Once per day. 025 Active methenamine hippurate (Hiprex) 1 g tablet PLEASE SEE ATTACHED FOR DETAILED DIRECTIONS 025 Active tiZANidine (Zanaflex) 2 MG tablet TOME 1 TABLETA POR V A ORAL TODOS LOS D AL ACOSTARSE CUANDO SEA NECESARIO FOR 30 DAYS 025 Active lisinopril 10 MG tablet Take 10 mg by mouth Once per day. 025 Active metoprolol succinate XL (Toprol-XL) 50 MG 24 hr tabletIndications :Primary hypertension TAKE 1 TABLET BY MOUTH EVERY MORNING. DO NOT BREAK, CRUSH, DISSOLVE OR CHEW. 90 tablet 1 10/02/20 25 11:34 AM EST Active metFORMIN XR (Glucophage-XR) 500 MG 24 hr tabletIndications :Type 2 diabetes mellitus without complication, without long-term current use of insulin (HCC) TAKE 2 TABLETS BY MOUTH TWICE DAILY IN THE MORNING AND EVENING 360 tablet 1 10/02/20 11:34 AM EST Active cyanocobalamin (Vitamin B-12) 1000 MCG tabletIndications :Diabetes mellitus type 2 with neurological manifestations (HCC) TAKE 1 TABLET BY MOUTH EVERY MORNING 90 tablet 1 10/02/20 25 11:34 AM EST Active Aspirin Low Dose 81 MG EC tabletIndications :Diabetes mellitus type 2 with neurological manifestations (HCC) TAKE 1 TABLET BY MOUTH DAILY AT BEDTIME 90 tablet 1 Active pregabalin (Lyrica) 200 MG capsuleIndication s:Fibromyalgia TAKE 1 CAPSULE BY MOUTH TWICE DAILY IN THE MORNING AND IN THE EVENING 60 capsule Active predniSONE (Deltasone) 20 MG tablet Take 1 tablet (20 mg) by mouth 3 times daily for 5 days, THEN 1 tablet (20 mg) 2 times daily for 4 days, THEN 1 tablet (20 mg) Once per day for 4 days, THEN 0.5 tablets (10 mg) Once per day for 4 days. 29 tablet 09/26/20 3:08 PM EST 2024 Active cyclobenzaprine (Flexeril) 5 MG tabletIndications :Sciatica of left side Take 1 tablet (5 mg) by mouth if needed at bedtime for muscle spasms for up to 10 days. 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) USE DIRECTED WITH INSULIN FOUR TIMES DAILY 100 each 11 Active capsaicin (Capzasin-HP) 0.1 % cream apply twice daily to affected area 022 2024 Discontinued(M ed list cleanup (will not trigger notification to Pharmacy)) Breztri Aerosphere 160-9-4.8 MCG/ACT aerosol 023 2024 Discontinued(M ed list cleanup (will not trigger notification to Pharmacy)) Simethicone Ultra Strength 180 MG capsule TAKE 1 CAPSULE BY MOUTH THREE TIMES DAILY IN THE MORNING, AT NOON, AND AT BEDTIME NEEDED FOR GAS 90 capsule 1 024 2024 Discontinued(M ed list cleanup (will not trigger notification to Pharmacy)) Azelastine HCl 137 MCG/SPRAY solution 2 spray into both nostrils 021 2024 Discontinued(M ed list cleanup (will not trigger notification to Pharmacy)) cyclobenzaprine (Flexeril) 5 MG tablet TOME 1 TABLETA POR V A ORAL TODOS LOS D AL ACOSTARSE CUANDO SEA NECESARIO FOR 30 DAYS 025 2024 Discontinued(R eorder (will not trigger notification to Pharmacy)) BD Pen Needle Arti U/F 32G X 4 MM miscIndications: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) USE DIRECTED WITH INSULIN FOUR TIMES DAILY 100 each 11 025 2024 Discontinued Aspirin Low Dose 81 MG EC tabletIndications :Diabetes mellitus type 2 with neurological manifestations (HCC) TAKE 1 TABLET BY MOUTH DAILY AT BEDTIME 90 tablet 1 025 2024 Discontinued pregabalin (Lyrica) 200 MG capsuleIndication s:Fibromyalgia TAKE 1 CAPSULE BY MOUTH TWICE DAILY IN THE MORNING AND IN THE EVENING 60 capsule 025 2024 Discontinued oxyCODONE (Roxicodone) 5 MG immediate release tablet 025 2024 Discontinued oxyCODONE (Roxicodone) 5 MG immediate release tabletIndications :Sciatica of left side Take 1 tablet (5 mg) by mouth if needed in the morning and at bedtime for severe pain for up to 4 days. 8 tablet 09/26/20 25 3:08 PM EST 025 2024 Active Problems Problem Noted Date Diagnosed Date Sciatica of left side 09/26/2025 Assessment & Plan (09/26/2025 2:10 PM EST): Orders: cyclobenzaprine (Flexeril) 5 MG tablet; Take 1 tablet (5 mg) by mouth if needed at bedtime for muscle spasms for up to 10 days. oxyCODONE (Roxicodone) 5 MG immediate release tablet; Take 1 tablet (5 mg) by mouth if needed in the morning and at bedtime for severe pain for up to 4 days. Fatty liver 05/11/2025 Assessment & Plan (05/11/2025 [...] was seen by an orthopaedist at [facility]. [facility] health care 12/02/2022 Overview (09/07/2023): Continues [...] for a HDF, She was admitted to [facility] from 11/10--05/2023 She presented with syncope with [...] acute finding. Pt was seen by her Anesthetic Assistant Dr Freeman and is currently wearing an [...] atorvastatin, Zetia and Praluent. Last seen by Anesthetic Assistant Dr Freeman 03/15/2025 Assessment & Plan (09/29/2024 [...] atorvastatin, Zetia and Praluent. Last seen by Anesthetic Assistant Dr Freeman 07/2024 Assessment & Plan (09/15/2023 [...] Patient under the care of [facility], last seen 04/11/2025 Currently on Ventolin , [...] Patient under the care of [facility] [employer] [facility], last seen 07/29/2024 Currently on Ventolin , uses albuterol nebulizarions as well. Dr Carson stopped her other inhalers Assessment & Plan (09/15/2023 3:23 PM EST): Patient under the care of [facility] [employer] [facility], last seen April Currently on Ventolin and Breztri Aerosphere , uses albuterol nebulizarions as well Assessment & Plan (12/02/2022 8:52 AM EST): Patient under the care of [facility] [employer] [facility], last seen January 2022 Currently on Ventolin [...] PM EDT): Pt under the care of Assignment Editor at [facility] , last seen 03/29/2025 Currently on a regimen of Dexilant 60 mg po daily and Omeprazole 40 mg po daily Assessment & Plan (12/29/2023 1:11 PM EST): Pt under the care of Assignment Editor at [facility] , last seen 10/2023 Currently on a regimen of Dexilant 60 mg po daily and Omeprazole 40 mg po daily Assessment & Plan (12/02/2022 8:52 AM EST): Pt under the care of Assignment Editor at [facility] Currently on a regimen of Dexilant 60 [...] (05/04/2023 3:40 PM EDT): - Freestyle Richard Maybrook and Sensor Ordered - A1c is not [...] found on MRI of lower back at [facility] in 2008, unchanged 2009. Sl enlarged 2013. Ref uro Assessment & Plan (05/11/2025 12:57 PM EDT): Under the care of Urology, last seen 01/12/2025 Davis's esophagus 01/03/2013 Overview (12/02/2022): Last EGD - Dr. Parviz Sommers, [facility] 01.06.2020 Assessment & Plan (09/29/2024 2:39 PM [...] daily History: - followed by [facility] Cardiology Assessment & Plan (05/11/2025 12:55 PM [...] is being followed by Dr. Jarod Angelo ([address] ). She is now under the care of the Pain Clinic at [facility] Re cent x-ray ordered by them 12/22/2023 [...] is being followed by Dr. Jarod Angelo ([address] ). She is now under the care of the Pain Clinic at [facility] Re cent x-ray ordered by them 12/22/2023 [...] request records from most recent MRI at [facility] pt is being followed by Dr. Jarod Angelo ([address] [facility] ). Depressive disorder 11/09/1959 Assessment & Plan (12/23/2022 2:42 PM EST): Patient under the care of psychiatrist at [facility] Currently on a regimen of: Clonazepam 0.5 mg po BID PRN, Trazodone 100 mg po qhs and Mirtazapine 45 mg po at bedtime Pt reports she has agoraphobia and cannot attend Jury Duty She is requesting a letter that due to the fact that she does not speak maldivian and has a psychiatric condition that causes her extreme anxiety when she is surrounded by people, she cannot attend Jury duty Assessment & Plan (12/02/2022 8:44 AM EST): Patient under the care of psychiatrist at [facility] Currently on a regimen of: Clonazepam 0.5 [...] at home monitoring and current therapy - [facility] to check on status of Freestyle richard [...] Encounters Date Type Department Care Team Description 10/01/2025 Refill [facility] [address] [place] [phone] Renan Lawson MD Diabetes mellitus type 2 with neurological manifestations (HCC) 09/29/2025 Telephone [facility] [address] [place] [address] Ashtyn Dill NP Status Check 09/26/2025 1:30 PM EST Office Visit [facility] [address] [place] [address] Ashtyn Dill NP Sciatica of left side (Primary Dx) 09/26/2025 Travel 09/25/2025 Refill [facility] [address] [facility] [place] [place] [address] Renan Lawson MD Fibromyalgia 09/25/2025 Travel 09/25/2025 Telephone [facility] [address] [place] [address] Renan Lawson MD ER Follow-up 09/24/2025 Refill [facility] [address] [place] [address] Renan Lawson MD Diabetes mellitus type 2 with neurological manifestations (HCC) 08/28/2025 Refill [facility] [address] [facility] [address] Renan Lawson MD Fibromyalgia 08/09/2025 Telephone [facility] [address] [place] [address] Renan Lawson MD chart prep 07/27/2025 Orders Only [facility] [place] [address] Renan Lawson MD 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) (Primary Dx) 07/25/2025 Telephone [facility] [address] [place] [address] Renan Lawson MD from Last 3 Months Immunizations Immunization Administration Dates Next Due Hep B, adult 09/25/2025,01/23/2025,10/24/2024 Influenza High-dose Quadriva lent Preservative Free 07/25/2023,07/18/2021 Influenza Injectable Quadriv alant Preservative Free IIV4 MDCK 07/21/2019,08/14/2017 Influenza injectable quadriv alent preservative free 07/15/2020,07/08/2018 Influenza, High Dose Seasona l, Preservative Free 09/29/2024 Influenza, IIV3, injectable 07/08/2018, 3,07/09/2011 Influenza, injectable, quadr ivalent, preservative free, pediatric 07/20/2013 Moderna Covid-19 Vaccine 12+ 12/19/2021,03/10/20 21,02/10/2021 Pfizer Covid-19 Vaccine 12+ 09/25/2025, 4 Pneumococcal Conjugate PCV 13 03/10/2022 Pneumococcal Polysaccharide PPSV23 03/20/2023,,10/12/2014 TD (adult), 2 Lf tetanus tox oid, preservative free, adsorbed 09/29/2024,07/29/2007 Td (adult) 07/29/2007 Tdap 06/02/2013 Zoster, Recombinant 05/23/2022,03/10/2022 Zoster, live 12/31/2017 Social History Tobacco Use Types Packs/Day Years Used Date Smoking Tobacco: Never Passive Smoke Exposure: Never Smokeless Tobacco: Never Tobacco Cessation:Counseling Given: Not [...] Sign Reading Time Taken Comments Blood Pressure 158/76 09/26/2025 1:39 PM EST Pulse 89 09/26/2025 1:39 PM EST Temperature 36.7 C (98 F) 09/26/2025 1:39 PM EST Respiratory Rate 16 09/26/2025 1:39 PM EST Oxygen Saturation 95% 09/26/2025 1:39 PM EST Inhaled Oxygen Concentration - - Weight 94.3 kg (208 lb) 09/26/2025 1:39 PM EST Height 165.1 cm (5' 5 ) 09/26/2025 1:39 PM EST Body Mass Index 34.61 09/26/2025 1:39 PM EST Plan of Treatment Upcoming Encounters Date Type Department Care Team (Late st Contact Info) Description 11/13/2025 1:00 PM EST Medication Management [facility] [address] [place] [address] Richelle Albarado, PharmD [address] [place] [address] Health Maintenance Due Date Last Done Comments CT Colonography 1955 Colonoscopy 1955 Colorectal Cancer Screening 1955 FIT DNA/Cologuard 1955 FIT 1955 FOBT 1955 Sigmoidoscopy 1955 Diabetes: Foot Exam 1965 Alcohol/Substance Use Screening 1967 Hepatitis A Vaccines (1 of 2 - Risk 2-dose series) 1974 RSV Patients and Patients Aged 60 years or older (1 - Risk 50-74 years 1-dose series) 2005 Diabetes: Urine Protein Screening 12/19/2022 12/19/2021, 12/19/2021 Depression Screening 12/29/2024 12/29/2023, 12/29/19 24 Influenza Vaccine (#1) 2025 , 07/25/2023, 07/18/2021, Additional history exists Eye Exam 12/18/2025 12/18/2023 Lipid Panel 01/12/2026 01/12/2025, 07/10, 05/19/2023, Additional history exists SDOH Screening 01/18/2026 01/18/2025 Mammogram 02/24/2026 02/24/2025, 02/07, 03/14/2022 COVID-19 Vaccine ( season) 2026 09/25/2025, 10/24/2024, 12/19/2021, Additional history exists Diabetes: Hemoglobin A1C 03/25/2026 025, 05/11/2025, 01/12/2025, Additional history exists Tobacco Screening 09/26/2026 09/26/2025 DTaP/Tdap/Td Vaccines (3 - Td or Tdap) 09/29/2034 09/29/2024, 06/02/2013, 07/29/2007, Additional history exists Zoster Vaccines Completed 05/23/2022, 12/2021, 12/31/2017 Pneumococcal Vaccine: 50+ Years Completed 03/20/2023, 03/10/2022, 08/07/2016, Additional history exists Hepatitis C Screening Completed 01/12/2025 Hepatitis B Vaccines Completed 09/25/2025, 01/23/2025, 10/24/2024 HIB Vaccines Aged Out No longer eligi [...] 2:39 PM EST) No Edilberto Barahona PharmD Help patients manage their type 2 [...] chronic kidney disease No Socorro Sampson RN Patient has chronic kidney disease Care Plan Patient has chronic kidney disease No Socorro Sampson RN Procedures Procedure Name Priority Date/Time Associated Diagnosis Comments POCT GLYCATED HEMOGLOBIN, TOTAL Routine 09/25/2025 2:39 PM EST Diabetes mellitus type 2 with neurological manifestations (HCC) BI MAMMOGRAM SCREENING TOMOSYNTHESIS BILATERAL Routine 02/24/2025 1:53 PM EDT HEPATITIS C ANTIBODY Routine 01/12/2025 2:04 PM EST LIPID PANEL, STANDARD Routine 01/12/2025 2:04 PM EST ALBUMIN, RANDOM URINE W/CREATININE Routine 12/19/2021 8:51 AM EST from Last 3 Months or Most Recently Relevant to Health Maintenance Results * (ABNORMAL) POCT A1c (09/25/2025 2:39 PM EST) Hemoglobin A1C 6.3(A) 4.0 - 5.7 % QC Media Lot # [id number] Lot# Expiration Date [id number] Blood 09/25/2025 2:39 PM EST us Krys Talbot MD POINT OF CARE TEST ENTER/ED IT ORDERABLES Final Result * BI Mammogram Screening Tomosynthesis Bilateral (02/24/2025 1:53 PM EDT) Anatomical Region Laterality Modality Breast Bilateral Mammography 02/24/2025 1:53 PM EDT Narrative 03/05/2025 9:42 AM EDT [place] [place] [address] Mammography Report Signed Patient: Naa Pedersen MR#: [id number] : 1955 Acct:[id number] Age/Sex: 69 / F ADM Date: 02/24/25 Loc: HO.MAMMO Attending Dr: Renan Cabral MD Ordering Physician: Renan Cabral MD Resu lts: 1Negative Date of Service: 02/24/25 Follow Up: 1 Year From Orig inal Mammogram Procedure(s): MM tomosynthesis screening BI Accession Number(s): [id number] cc: Renan Cabral MD EXAMINATION: MM SCREENING [...] 03/05/25 0940 DD/ 1353 TD/TT: 02/24/25 1403 Nursing Program Manager: Procedure Note Donotuseinterpreter, Image - 03/05/2025 Roxanne [facility] [address] [place], [place] [address] Mammography Report Signed Patient: Naa Pedersen EMR#: [id number] : 6Acct:[id number] Age/Sex: 69 / FADM Date: 02/24/25 Loc: HO.MAMMO Attending Dr: Renan Cabral MD Ordering Physician: Renan Cabral MDResu lts: 1Negative Date of Service: 02/24/25Follow Up: 1 Year From Orig ina Mammogram Procedure(s): MM tomosynthesis screening BI Accession Number(s): [id number] cc: Renan Cabral MD EXAMINATION: MM SCREENING [...] 03/05/25 0940 DD/ 1353 TD/TT: 02/24/25 1403 Nursing Program Manager: us Reann Aparicio MD IMG BI PROCEDURES Robert genia Result - Final * Hepatitis C Ab (01/12/2025 2:04 PM EST) Hepatitis C Antibody Nonreactive Nonreactive [facility] Comment:Antibodies to HCV no t detected; does not exclude early acuteHCV infection. 01/12/2025 2:04 PM EST 01/12/2025 2:04 PM EST Generic External Data Provider LAB BLOOD ORDERAB LES Final Result Performing Organization Address [facility] Co de Phone Number [facility] [address] [place] [phone] * (ABNORMAL) Lipid Panel, Standard (01/12/2025 2:04 PM EST) Triglycerides 271(H) <150 mg/dL [facility] Comment:Desirable Triglyceri de: less than 150 mg/dLBorderline High Triglyceride 150-199 mg/dLHigh Triglyceride: 200-499 mg/dLVery High Triglyceride: greater than or equal to 5OO mg/dL Cholesterol 270(H) <200 mg/dL [facility] Comment:Desirable Cholestero l: less than 200 mg/dLBorderline High Cholesterol: 200-239 mg/dLHigh Cholesterol: greater than 239 mg/dL LDL Cholesterol Calculated 173(H) <100 mg/dL [facility] Comment:Desirable LDL: less than 100 mg/dLNear Optimal/Above Optimal LDL: 110- 129 mg/dLBorderline High LDL: 130-159 mg/dLHigh LDL: 160-189 mg/dLVery High LDL: greater than or equal to 190 mg/dL HDL Cholesterol 43 >40 mg/dL [facility] Comment:Desirable HDL: great er than 40 mg/dL Note: This HDL assay may give artificially low results in patients with liver disease. 01/12/2025 2:04 PM EST 01/12/2025 2:04 PM EST Generic External Data Provider LAB BLOOD ORDERAB LES Final Result Performing Organization Address [facility] Co de Phone Number [facility] [address] [place] [phone] * ALBUMIN, RANDOM URINE W/CREATININE (12/19/2021 [...] Aparicio MD LAB URINE ORDERABLES Final Result [facility] [address] from Last 3 Months or Most Recently Relevant to Health Maintenance Additional Health Concerns Active Problems Noted Date [...] 09/29/2025 Patient has chronic kidney disease 09/29/2025 Insurance [facility] STANDARD [place] [id number] Care Teams Blanking Machine Operator Relationship Specialty Start Date End Date Renan Lawson MD [address] [place] [address] PCP - General Internal Medicine 12/10/21 Richelle Albarado PharmD [address] [place] [address] Pharmacist Internal Medicine 10/25/24
--- OUTSIDE RECORDS SUMMARY | 2025-10-04 09:19 | XMS_ITS | Encounter Summary ---
Author Organization [employer] Address [address] [place] [address] Care Team Providers Care Hematology Nurse Educator Name Role Phone Renan Lawson MD Primary Care Provide r Edilberto Barahona PharmD Unavailable [phone] Richelle Albarado PharmD Unavailable [phone] Reason for Visit * Reason Onset Date Comments Appointment Request 08/26/2023 Encounter Details Date Type Department Care Team ([facility] Contact Info) Description 08/26/2023 Telephone [facility] [address] [place], [place] [phone] Renan Lawson MD [address] [place], [place] [phone] Appointment Request Social History Tobacco Use Types [...] Description 11/13/2025 1:00 PM EST Medication Management [facility] [address] [place] [address] Richelle Albarado PharmD [address] [place] [address] documented as of this encounter Goals Goal [...] mellitus type 2 with neurological manifestations On track(08/28/2 023 2:54 PM EDT) No Edilberto Barahona PharmD Hemoglobin A1c < 7.0 Result Component Diabetes mellitus type 2 with neurological manifestations 6.3( 5 2:39 PM EST) No Edilberto Barahona PharmD documented as of this encounter Visit Diagnoses Not on filedocumented in this encounter Additional Health Concerns Assessment Noted Time PHQ-9 Depression Total Score: 0 12/02/19 23 10:15 AM EST documented as of this encounter Care Teams Hematology Nurse Educator Relationship Specialty Start Date End Date Renan Lawson MD [address] [place] [phone] PCP - General Internal Medicine 12/10/21 Edilberto Barahona PharmD [address] [place] [phone] Pharmacist Internal Medicine 07/14/23 10/24/24 Richelle Albarado PharmD [address] [place] [phone] Pharmacist Internal Medicine 10/25/24 documented as of this encounter
--- OUTSIDE RECORDS SUMMARY | 2025-10-04 09:19 | XMS_ITS | Encounter Summary ---
Author Organization [facility] Address [address] [facility] 7t [place] [address] Care Team Providers Care Welding Machine Assembler Name Role Phone Renan Lawson MD Primary Care Provide r Edilberto Barahona PharmD Unavailable [phone] Richelle Albarado PharmD Unavailable [phone] Reason for Referral * Imaging (Routine) - Closed Specialty Diagnoses / Procedures Referred By Tiffany milian Referred To Contact Radiology Diagnoses Right lower quadrant abdominal pain Procedures US Pelvis Transvaginal Moira Edouard FNP [address] [place] [address] Phone: tel: fax: [facility] [address] [place] [phone] Phone: tel: fax: Referral ID Status Reason Start Date Expiration Date Visits Re quested Visits Authorized [id number] Closed 08/07/2023 08/06/2024 1 1 Encounter Details Date Type Department Care Team (Late st Contact Info) Description 08/07/2023 Orders Only [facility] [address] [place] [address] Moira Edouard FNP [address] [place] [address] Right lower quadrant abdominal pain (Primary Dx) [...] Description 11/13/2025 1:00 PM EST Medication Management [facility] [address] [place], [place] [phone] Richelle Albarado PharmD [address] [place] [address] documented as of this encounter Goals Goal [...] AM EST Narrative 10/08/2023 5:03 PM EST [address] [address] Ultrasound Report Signed Patient: Naa Pedersen MR#: [id number] : 1955 Acct:[id number] Age/Sex: 67 / F ADM Date: 10/07/23 Loc: HO.US Attending Dr: Moira Edouard NP Ordering Physician: Moira Edouard NP Date of Service: 10/07/23 Procedure(s): US pelvic and transvaginal Accession Number(s): [id number] cc: Moira Edouard NP; Renan Cabral MD [...] in OV> 10/08/23 1659 DD/ 1146 TD/TT: Metal Burnisher: Procedure Note Donotuseinterpreter, Image - 10/08/[address] [address] Ultrasound Report Signed Patient: Naa Pedersen EMR#: [id number] : 6Acct:[id number] Age/Sex: 67 / FADM Date: 10/07/23 Loc: HO.US Attending Dr: Moira Edouard NP Ordering Physician: Moira Edouard NP Date of Service: 10/07/23 Procedure(s): US pelvic and transvaginal Accession Number(s): [id number] cc: Moira Edouard ASSOCIATE PROFESSOR OF COUNSELING; Renan Cabral MD EXAMINATION: US PELVIS CLINICAL [...] in OV> 10/08/23 1659 DD/ 1146 TD/TT: Metal Burnisher: us Moira Edouard SCRAP SHEAR OPERATOR IMG US PROCEDURES Final Result documented in this encounter Visit Diagnoses Diagnosis Right lower quadrant abdominal pain- Primary documented in this encounter Additional Health Concerns Assessment Noted Time PHQ-9 Depression Total Score: 0 12/02/19 10:15 AM EST documented as of this encounter Care Teams Welding Machine Assembler Relationship Specialty Start Date End Date Renan Lawson MD [address] [place] [address] PCP - General Internal Medicine 12/10/21 Edilberto Barahona, KyD [address] [place] [address] Pharmacist Internal Medicine 07/14/23 10/24/24 Richelle Albarado PharmD [address] [place] [phone] Pharmacist Internal Medicine 10/25/24 documented as of this encounter
--- OUTSIDE RECORDS SUMMARY | 2025-10-04 09:19 | XMS_ITS | Encounter Summary ---
Author Organization [employer] Address [address] 7t [place] [address] Care Team Providers Care Cigarette Filter Inspector Name Role Phone Renan Lawson MD Primary Care Provide r Edilberto Barahona PharmD Unavailable [phone] Richelle Albarado PharmD Unavailable [phone] Reason for Visit * Reason Comments Med Refill Encounter Details Date Type Department Care Team ([facility] st Contact Info) Description 01/15/2024 Refill [facility] [address] [place], [place] [phone] Shantell Will MD [address] [place], [place] [phone] Fibromyalgia Social History Tobacco Use Types Packs/Day [...] 11/13/2025 1:00 PM EST Medication Management [facility] [address] [place] [address] Richelle Albarado PharmD [address] [place] [address] documented as of this encounter Goals Goal [...] documented as of this encounter Care Teams Cigarette Filter Inspector Relationship Specialty Start Date End Date Renan Lawson MD [address] [place] [address] PCP - General Internal Medicine 12/10/21 Edilberto Barahona PharmD [address] [place] [address] Pharmacist Internal Medicine 07/14/23 10/24/24 Richelle Albarado PharmD [address] [place] [address] Pharmacist Internal Medicine 10/25/24 documented as of this encounter
--- OUTSIDE RECORDS SUMMARY | 2025-10-04 09:19 | XMS_ITS | Encounter Summary ---
Author Organization [employer] Address [address] [facility] [address] 7t [place] [address] Care Team Providers Care Community Health Worker Name Role Phone Renan Lawson MD Primary Care Provide r Edilberto Barahona PharmD Unavailable [phone] Richelle Albarado PharmD Unavailable [phone] Reason for Visit * Reason Comments Med Refill Encounter Details Date Type Department Care Team ([facility] st Contact Info) Description 08/26/2024 Refill [facility] [address] [place], [place] [phone] Renan Lawson MD [address] [place], [place] [phone] Social History Tobacco Use Types Packs/Day Years [...] Description 11/13/2025 1:00 PM EST Medication Management [facility] [address] [place] [address] Richelle Albarado PharmD [address] [place] [address] documented as of this encounter Goals Goal [...] Diabetes mellitus type 2 with neurological manifestations 6.3(11/17/202 5 2:39 PM EST) No Edilberto Barahona, PharmD documented as of this encounter Visit Diagnoses Not on filedocumented in this encounter Additional Health Concerns Assessment Noted Time PHQ-9 Depression Total Score: 6 12/29/19 1:36 PM EST documented as of this encounter Care Teams Community Health Worker Relationship Specialty Start Date End Date Renan Lawson MD [address] [place] [address] PCP - General Internal Medicine 12/10/21 Edilberto Barahona, PharmD [address] [place] [address] Pharmacist Internal Medicine 07/14/23 10/24/24 Richelle Albarado, KyD [address] [place] [address] Pharmacist Internal Medicine 10/25/24 documented as of this encounter
== END 2025-10-04 09:21 | disposition home or self-care (01) ==
LOC: HO.HOS 08:51
PROVIDERS: PCP Internal Medicine; Visit Provider Physician Assistant
DX: M17.12 Unilateral primary osteoarthritis, left knee (principal)
CPT/HCPCS: 99213; G2211

== ENCOUNTER → 2025-10-04 08:50 | Outpatient (BNVA) | payer MEDICARE, MEDICAID, SELFPAY | PROVIDERS: PCP Internal Medicine; Visit Provider Physician Assistant | DX: M17.12 Unilateral primary osteoarthritis, left knee (principal) | CPT/HCPCS: 99212 ==

== ENCOUNTER 2025-10-15 10:26 | Outpatient (REF) | payer MEDICARE, MEDICAID, SELFPAY ==
--- NOTE | ~2025-10-15 | MR_ITS ---
EXAMINATION: MR KNEE WITHOUT CONTRAST, LEFT CLINICAL INFORMATION: Unilateral primary osteoarthritis . Patient reports no prior left knee surgery. Patient reports pain, symptoms 1 week. COMPARISON: X-ray knee 05/19/2025 . MRI left knee 06/10/2018 TECHNIQUE: MRI of the knee without contrast was performed using routine sequences on a high-field scanner. FINDINGS: MENISCI: Medial Meniscus: Small caliber of the posterior horn and posterior root, with irregularity of the posterior root/central posterior horn. These findings could represent evolution of the previously noted tear versus age-indeterminate tearing. The body is partially medially subluxed, with degeneration and tibial articular surface fraying/ill-defined tear. Lateral Meniscus: Degenerative fraying/ill-defined tear of the posterior root/central posterior horn. Findings new as compared to the prior study. LIGAMENTS: Cruciate: ACL mucoid degeneration. Intact PCL. Collateral: Intact EXTENSOR MECHANISM: Intact ARTICULAR CARTILAGE/BONE: Patellofemoral Compartment: Mild arthritis, with areas of chondral thinning, including involving the lateral patella facet. Medial Compartment: Mild-moderate arthritis, with nonuniform chondral loss in the weightbearing compartment, marginal osteophytes. Lateral Compartment: Mild arthritis. Mild chondral thinning in the medial aspect of the tibial plateau. No acute fracture. No aggressive marrow replacing lesion. JOINT FLUID AND BURSAE: Small effusion. Low signal foci in the joint space, could reflect synovitis or debris. Trace Garzon's cyst. Subcutaneous edema. MR/MR knee LT wo con IMPRESSION: * Abnormal findings in the medial meniscal posterior horn and posterior root, could reflect evolution of the previously noted tear versus recurrent age-indeterminate tearing.. Degenerative fraying/ill-defined tear of the body. * Degenerative fraying/tear of the posterior root/central posterior horn of the lateral meniscus. * ACL mucoid degeneration * Tricompartment arthritis *Small effusion, possible mild synovitis/debris. Electronically signed by: Aly Garcia MD 10/17/2025 07:55 AM EST
--- OUTSIDE RECORDS SUMMARY | 2025-10-15 10:29 | XMS_ITS | Encounter Summary ---
Author Organization [employer] Address [address] [facility] [address] 7t [place] [address] Care Team Providers Care Machine I Coremaker Name Role Phone Renan Lawson MD Primary Care Provide r Edilberto Barahona PharmD Unavailable [phone] Richelle Albarado PharmD Unavailable [phone] Reason for Visit * Reason Onset Date Comments Reschedule 05/20/2023 Encounter Details Date Type Department Care Team ([facility] Contact Info) Description 05/20/2023 Telephone [facility] [address] [place], [place] [phone] Renan Lawson MD 230 [place], [place] [phone] Reschedule Social History Tobacco Use Types Packs/Day [...] knee injection appointment. Please contact pt at [phone] (Yakut speaker) documented in this encounter Plan of Treatment Upcoming Encounters Date Type Department Care Team (Late st Contact Info) Description 11/13/2025 1:00 PM EST Medication Management [facility] [address] [place], [place] [phone] Richelle Albarado PharmD [address] [place], [place] documented as of this encounter Goals [...] documented as of this encounter Care Teams Machine I Coremaker Relationship Specialty Start Date End Date Renan Lawson MD [address] [place] [address] PCP - General Internal Medicine 12/10/21 Edilberto Barahona PharmD [address] [place] [address] [phone] Pharmacist Internal Medicine 07/14/23 10/24/24 Richelle Albarado PharmD [address] [place] [phone] Pharmacist Internal Medicine 10/25/24 documented as of this encounter
--- OUTSIDE RECORDS SUMMARY | 2025-10-15 10:29 | XMS_ITS | Patient Health Record ---
Author Organization [facility] Address [address] [place] [address] Care Team Providers Care Application Specialist Name Role Phone Deandre Aparicio MD, eRnan Primary Care Provide r Unavailable Eric Emmanuel Unavailable [phone] Reason For Referral No Information Plan Of Treatment No Information Insurance Providers Payer Name Payer Address Payer Phone Subscriber Number Group Number Insured Name Patient Relationship to Insured Coverage Start Date Coverage End Date [place] [address] [place] [id number] COLE BOWLES Self - patient is the insured MEDICAID OF [facility] [address] [place] [address] [id number] COLE BOWLES Self - patient is the insured
--- OUTSIDE RECORDS SUMMARY | 2025-10-15 10:29 | XMS_ITS | Clinical Summary ---
Author Organization [employer] Address [address] [facility] 7t [place] [address] Care Team Providers Care Tire Tester Name Role Phone Renan Lawson MD Primary Care Provide r Richelle Albarado PharmD Unavailable [phone] Allergies Active Allergy Reactions Criticality Noted Date [...] 024 Active Blood Glucose Monitoring Suppl (FreeStyle K[place] Lite) w/Device kit USE DIRECTED TO TEST [...] 100 each 11 024 Active Continuous Glucose Test Fixture Assembler (FreeStyle Richard 3 [place]) deviceIndications :Diabetes mellitus type 2 with neurological [...] days as directed for CGM 2 each 10/09/20 11:32 AM EST 025 Active atorvastatin (Lipitor) 80 MG tabletIndications [...] 1 (one) time per week. 2 mL 10/02/20 25 11:34 AM EST 025 Active [...] DISSOLVE OR CHEW. 90 tablet 1 10/02/20 11:34 AM EST 025 Active metFORMIN XR (Glucophage-XR) 500 MG 24 hr tabletIndications :Type 2 diabetes mellitus without complication, without long-term current use of insulin (HCC) TAKE 2 TABLETS BY MOUTH TWICE DAILY IN THE MORNING AND EVENING 360 tablet 1 10/02/20 11:34 AM EST 025 Active cyanocobalamin (Vitamin B-12) 1000 MCG tabletIndications :Diabetes mellitus type 2 with neurological manifestations (HCC) TAKE 1 TABLET BY MOUTH EVERY MORNING 90 tablet 1 10/02/20 11:34 AM EST 025 Active Aspirin Low Dose 81 MG EC tabletIndications :Diabetes mellitus type 2 with neurological manifestations (HCC) TAKE 1 TABLET BY MOUTH DAILY AT BEDTIME 90 tablet 1 10/09/20 11:32 AM EST 025 Active pregabalin (Lyrica) 200 MG capsuleIndication s:Fibromyalgia TAKE 1 CAPSULE BY MOUTH TWICE DAILY IN THE MORNING AND IN THE EVENING 60 capsule Active Embecta Pen Needle Arti 32G X 4 MM miscIndications: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) USE DIRECTED WITH INSULIN FOUR TIMES DAILY 100 each 11 10/09/20 11:32 AM EST Active capsaicin (Capzasin-HP) 0.1 % cream apply [...] ACOSTARSE CUANDO SEA NECESARIO FOR 30 DAYS 2024 Discontinued(R eorder (will not trigger notification to Pharmacy)) BD Pen Needle Arti U/F 32G X 4 MM miscIndications: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) USE DIRECTED WITH INSULIN FOUR TIMES DAILY 100 each 11 2024 Discontinued Aspirin Low Dose 81 MG EC tabletIndications :Diabetes mellitus type 2 with neurological manifestations (HCC) TAKE 1 TABLET BY MOUTH DAILY AT BEDTIME 90 tablet 1 2024 Discontinued pregabalin (Lyrica) 200 MG capsuleIndication s:Fibromyalgia TAKE 1 CAPSULE BY MOUTH TWICE DAILY IN THE MORNING AND IN THE EVENING 60 capsule 2024 Discontinued oxyCODONE (Roxicodone) 5 MG immediate release tablet 2024 Discontinued predniSONE (Deltasone) 20 MG tablet Take 1 tablet (20 mg) by mouth 3 times daily for 5 days, THEN 1 tablet (20 mg) 2 times daily for 4 days, THEN 1 tablet (20 mg) Once per day for 4 days, THEN 0.5 tablets (10 mg) Once per day for 4 days. 29 tablet 09/26/20 25 3:08 PM EST 2024 cyclobenzaprine (Flexeril) 5 MG tabletIndications :Sciatica of left side Take 1 tablet (5 mg) by mouth if needed at bedtime for muscle spasms for up to 10 days. 10 tablet 2024 oxyCODONE (Roxicodone) 5 MG immediate release tabletIndications :Sciatica of left side Take 1 tablet (5 mg) by mouth if needed in the morning and at bedtime for severe pain for up to 4 days. 8 tablet 09/26/20 25 3:08 PM EST 22/ 2025 Active Problems Problem Noted Date Diagnosed Date [...] Pt was seen by an orthopaedist at [facility]. [facility] health care 12/02/2022 Overview (09/07/2023): Continues [...] for a HDF, She was admitted to [facility] from 11/10--05/2023 She presented with syncope with [...] acute finding. Pt was seen by her Electronics Engineering Manager Dr Freeman and is currently wearing [...] atorvastatin, Zetia and Praluent. Last seen by Electronics Engineering Manager Dr Freeman 03/15/2025 Assessment & Plan (09/29/2024 [...] atorvastatin, Zetia and Praluent. Last seen by Electronics Engineering Manager Dr Freeman 07/2024 Assessment & Plan [...] Patient under the care of [facility] Access Representative, last seen 04/11/2025 Currently on Ventolin , [...] Patient under the care of [facility] Access Representative, last seen 07/29/2024 Currently on Ventolin , uses albuterol nebulizarions as well. Dr Carson stopped her other inhalers Assessment & Plan (09/15/2023 3:23 PM EST): Patient under the care of [facility] Access Representative, last seen April Currently on Ventolin and Breztri Aerosphere , uses albuterol nebulizarions as well Assessment & Plan (12/02/2022 8:52 AM EST): Patient under the care of [facility] Access Representative, last seen January 2022 Currently on Ventolin [...] PM EDT): Pt under the care of Reel Winder at [facility] , last seen 03/29/2025 Currently on a regimen of Dexilant 60 mg po daily and Omeprazole 40 mg po daily Assessment & Plan (12/29/2023 1:11 PM EST): Pt under the care of Reel Winder at [facility] , last seen 10/2023 Currently on a regimen of Dexilant 60 mg po daily and Omeprazole 40 mg po daily Assessment & Plan (12/02/2022 8:52 AM EST): Pt under the care of Reel Winder at [facility] Currently on a regimen of Dexilant 60 [...] (05/04/2023 3:40 PM EDT): - Freestyle Richard [place] and Sensor Ordered - A1c is not [...] found on MRI of lower back at [facility] in 2008, unchanged 2009. Sl enlarged 2013. Ref uro Assessment & Plan (05/11/2025 12:57 PM EDT): Under the care of Urology, last seen 01/12/2025 Davis's esophagus 01/03/2013 Overview (12/02/2022): Last EGD - Dr. Parviz Sommers, [facility] 01.06.2020 Assessment & Plan (09/29/2024 2:39 PM [...] daily History: - followed by Nixon's office [facility] Cardiology Assessment & Plan (05/11/2025 12:55 PM [...] followed by Dr. Jarod Angelo ([address] ). She is now under the care of the Pain Clinic at [facility] Re cent x-ray ordered by them 12/22/2023 [...] is being followed by Dr. Jarod Angelo ([address] [facility] ). She is now under the care of the Pain Clinic at [facility] Re cent x-ray ordered by them 12/22/2023 [...] request records from most recent MRI at [facility] pt is being followed by Dr. Jarod Angelo ([address] [place] [address] ). Depressive disorder 11/09/1959 Assessment & Plan (12/23/2022 2:42 PM EST): Patient under the care of psychiatrist at [facility] Currently on a regimen of: Clonazepam 0.5 mg po BID PRN, Trazodone 100 mg po qhs and Mirtazapine 45 mg po at bedtime Pt reports she has agoraphobia and cannot attend Jury Duty She is requesting a letter that due to the fact that she does not speak greenlandic and has a psychiatric condition that causes her extreme anxiety when she is surrounded by people, she cannot attend Jury duty Assessment & Plan (12/02/2022 8:44 AM EST): Patient under the care of psychiatrist at [facility] Currently on a regimen of: Clonazepam 0.5 [...] Encounters Date Type Department Care Team Description 10/10/2025 Telephone [facility] [address] [place] [address] Renan Lawson MD 10/01/2025 Refill [facility] [address] [place] [address] Renan Lawson MD Diabetes mellitus type 2 with neurological manifestations (HCC) 09/29/2025 Telephone [facility] [place] [address] Ashtyn Dill NP Status Check 09/26/2025 1:30 PM EST Office Visit [facility] [address] [place] [address] Ashtyn Dill NP Sciatica of left side (Primary Dx) 09/26/2025 Travel 09/25/2025 Refill [facility] [address] [facility] [place] [address] Renan Lawson MD Fibromyalgia 09/25/2025 Travel 09/25/2025 Telephone [facility] [place] [place] [address] Renan Lawson MD ER Follow-up 09/24/2025 Refill [facility] [place] [address] Renan Lawson MD Diabetes mellitus type 2 with neurological manifestations (HCC) 08/28/2025 Refill [facility] P[facility] [address] [facility] [place] [address] Renan Lawson MD Fibromyalgia 08/09/2025 Telephone [facility] [place] [place] [address] Renan Lawson MD chart prep 07/27/2025 Orders Only [facility] [place] [place] [address] Renan Lawson MD 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) (Primary Dx) 07/25/2025 Telephone [facility] [place] [address] Renan Lawson MD from Last 3 Months [...] Description 11/13/2025 1:00 PM EST Medication Management [facility] [address] [place] [address] Richelle Albarado, PharmD [address] [place] [address] Health Maintenance Due Date Last Done Comments [...] Author Blood Pressure < 140/90 Blood Pressure 158/76(09/26 1:39 PM EST) No Edilberto Barahona PharmD Blood Pressure < 140/90 Blood Pressure Hypertension 158/76(09/26 1:39 PM EST) No Edilberto Barahona PharmD Keep fasting blood glucose between 70 and 130 Result Component No Edilberto Barahona PharmD Keep fasting blood glucose between 70 and 130 Result Component Diabetes mellitus type 2 with neurological manifestations On track(2022 2:54 PM EDT) No Edilberto Barahona PharmD Hemoglobin A1c < 7.0 Result Component Diabetes mellitus type 2 with neurological manifestations 6.3(09/25/20 2:39 PM EST) No Edilberto Barahona PharmD [...] Plan Patient has chronic kidney disease No Alli Ted Weekly blood pressure task Care Plan Weekly [...] chronic kidney disease No Socorro Sampson RN Weekly blood pressure task Care Plan Weekly blood pressure task No Stephanie Evans Weekly blood pressure task Care Plan Weekly blood pressure task No Nathan Stephanie Patient has chronic kidney disease Care Plan Patient has chronic kidney disease No Nathan Stephanie Patient has chronic kidney disease Care Plan Patient has chronic kidney disease No Alphonso Evansa Procedures Procedure Name Priority Date/Time Associated Diagnosis [...] Media Lot # [id number] Lot# Expiration Date [id number] Blood 09/25/2025 2:39 PM EST us Krys Talbot MD POINT OF CARE TEST ENTER/ED IT ORDERABLES Final Result * BI Mammogram Screening Tomosynthesis Bilateral (02/24/2025 1:53 PM EDT) Anatomical Region Laterality Modality Breast Bilateral Mammography 02/24/2025 1:53 PM EDT Narrative 03/05/2025 9:42 AM EDT [facility] [address] [place], [place] [address] Mammography Report Signed Patient: Naa Pedersen MR#: [id number] : 1955 Acct:[id number] Age/Sex: 69 / F ADM Date: 02/24/25 Loc: HO.MAMMO Attending Dr: Renan Cabral MD Ordering Physician: Renan Cabral MD Resu lts: 1Negative Date of Service: 02/24/25 Follow Up: 1 Year From Orig ina Mammogram Procedure(s): MM tomosynthesis screening BI Accession Number(s): [id number] cc: Renan Cabral MD EXAMINATION: MM SCREENING [...] 03/05/25 0940 DD/ 1353 TD/TT: 02/24/25 1403 Authorization Coordinator: Procedure Note Donotuseinterpreter, Image - 03/05/2025 [facility] [address] [place] [address] Mammography Report Signed Patient: Naa Pedersen EMR#: [id number] : 1955cct:[id number] Age/Sex: 69 / FADM Date: 02/24/25 Loc: HO.MAMMO Attending Dr: Renan Cabral MD Ordering Physician: Renan Cabral MDResu lts: 1Negative Date of Service: 02/24/25Follow Up: 1 Year From Orig inal Mammogram Procedure(s): MM tomosynthesis screening BI Accession Number(s): [id number] cc: Renan Cabral MD EXAMINATION: MM SCREENING [...] 03/05/25 0940 DD/ 1353 TD/TT: 02/24/25 1403 Authorization Coordinator: us Renan Aparicio MD IMG BI PROCEDURES Robert genia Result - Final * Hepatitis C Ab (01/12/2025 2:04 PM EST) Hepatitis C Antibody Nonreactive Nonreactive [facility] Comment:Antibodies to HCV no t detected; does not exclude early acuteHCV infection. 01/12/2025 2:04 PM EST 01/12/2025 2:04 PM EST us Generic External Data Provider LAB BLOOD ORDERAB LES Final Result [facility] [address] [place] [address] [phone] * (ABNORMAL) Lipid Panel, Standard (01/12/2025 2:04 PM EST) Triglycerides 271(H) <150 mg/dL [facility] Comment:Desirable Triglyceri de: less than 150 mg/dLBorderline High Triglyceride 150-199 mg/dLHigh Triglyceride: 200-499 mg/dLVery High Triglyceride: greater than or equal to 5OO mg/dL Cholesterol 270(H) <200 mg/dL [facility] Comment:Desirable Cholestero l: less than 200 mg/dLBorderline High Cholesterol: 200-239 mg/dLHigh Cholesterol: greater than 239 mg/dL LDL Cholesterol Calculated 173(H) <100 mg/dL [facility] Comment:Desirable LDL: less than 100 mg/dLNear Optimal/Above Optimal LDL: 110- 129 mg/dLBorderline High LDL: 130-159 mg/dLHigh LDL: 160-189 mg/dLVery High LDL: greater than or equal to 190 mg/dL HDL Cholesterol 43 >40 mg/dL [facility] Comment:Desirable HDL: great er than 40 mg/dL Note: This HDL assay may give artificially low results in patients with liver disease. 01/12/2025 2:04 PM EST 01/12/2025 2:04 PM EST us Generic External Data Provider LAB BLOOD ORDERAB LES Final Result [facility] [address] [place] [address] [phone] * ALBUMIN, RANDOM URINE W/CREATININE (12/19/2021 [...] [facility] [address] from Last 3 Months or Most [...] 09/29/2025 Patient has chronic kidney disease 09/29/2025 Weekly blood pressure task 10/10/2025 Weekly blood pressure task 10/10/2025 Patient has chronic kidney disease 10/10/2025 Patient has chronic kidney disease 10/10/2025 Insurance [facility] STAND[facility] [place] [phone] Care Teams Tire Tester Relationship Specialty Start Date End Date Renan Lawson MD [address] [place] [address] PCP - General Internal Medicine 12/10/21 Richelle Albarado PharmD [address] [place] [address] Pharmacist Internal Medicine 10/25/24
--- OUTSIDE RECORDS SUMMARY | 2025-10-15 10:29 | XMS_ITS | Encounter Summary ---
Author Organization [employer] Address [address] [facility] [address] 7[address] [place] [address] Care Team Providers Care Marker Assembler Name Role Phone Renan Lawson MD Primary Care Provide r Edilberto Barahona PharmD Unavailable [phone] Richelle Albarado PharmD Unavailable [phone] Encounter Details Date Type Department Care Team (Late st Contact Info) Description 12/17/2022 Abstract [facility] [address] [place], [place] [phone] Renan Lawson MD [address] [place], [place] [phone] Social History Tobacco Use Types Packs/Day Years [...] Description 11/13/2025 1:00 PM EST Medication Management [facility] [address] [place] [address] Richelle Albarado, Toni [address] [place] [address] documented as of this encounter Visit Diagnoses Not on filedocumented in this encounter Additional Health Concerns Assessment Noted Time PHQ-9 Depression Total Score: 0 12/02/19 10:15 AM EST documented as of this encounter Care Teams Marker Assembler Relationship Specialty Start Date End Date Renan Lawson MD [address] [place] [address] PCP - General Internal Medicine 12/10/21 Edilberto Barahona PharmD [address] [place] [address] Pharmacist Internal Medicine 07/14/23 10/24/24 Richelle Albarado PharmD [address] [place] [address] Pharmacist Internal Medicine 10/25/24 documented as of this encounter
--- OUTSIDE RECORDS SUMMARY | 2025-10-15 10:29 | XMS_ITS | Encounter Summary ---
Author Organization [employer] Address [address] 7[address] [place] [address] Care Team Providers Care Distance Learning Unit Leader Name Role Phone Renan Lawson MD Primary Care Provide r Edilberto Barahona PharmD Unavailable [phone] Richelle Albarado PharmD Unavailable [phone] Reason for Visit * Reason Comments Med Refill Encounter Details Date Type Department Care Team ([facility] st Contact Info) Description 01/15/2024 Refill [facility] [address] [place], [place] [phone] Shantell Will MD 230 [place], [place] [phone] Fibromyalgia Social History Tobacco Use Types Packs/Day [...] Description 11/13/2025 1:00 PM EST Medication Management [facility] [address] [place] [address] Richelle Albarado PharmD 230 [place] [address] documented as of this encounter Goals Goal [...] documented as of this encounter Care Teams Distance Learning Unit Leader Relationship Specialty Start Date End Date Renan Lawson MD 230 [place] [address] PCP - General Internal Medicine 12/10/21 Edilberto Barahona PharmD [address] [place] [address] Pharmacist Internal Medicine 07/14/23 10/24/24 Richelle Albarado PharmD [address] [place] [address] Pharmacist Internal Medicine 10/25/24 documented as of this encounter
--- OUTSIDE RECORDS SUMMARY | 2025-10-15 10:29 | XMS_ITS | Encounter Summary ---
Author Organization [facility] Address [address] [facility] 7t [place] [address] Care Team Providers Care Damage Assessor Name Role Phone Renan Lawson MD Primary Care Provide r Edilberto Barahona PharmD Unavailable [phone] Richelle Albarado PharmD Unavailable [phone] Reason for Referral * Imaging (Routine) - Closed Specialty Diagnoses / Procedures Referred By Tiffany milian Referred To Contact Radiology Diagnoses Right lower quadrant abdominal pain Procedures US Pelvis Transvaginal Moira Edouard FNP 230 [place] [address] Phone: tel: fax: [facility] [address] [place] [phone] Phone: tel: fax: Referral ID Status Reason Start Date Expiration Date Visits Re quested Visits Authorized [id number] Closed 08/07/2023 08/06/2024 1 1 Encounter Details Date Type Department Care Team (Late st Contact Info) Description 08/07/2023 Orders Only [facility] [address] [place] [address] Moira Edouard FNP [address] [place] [address] Right lower quadrant abdominal pain (Primary Dx) [...] Description 11/13/2025 1:00 PM EST Medication Management [facility] [address] [place], [place] [phone] Richelle Albarado PharmD [address] [place] [address] documented as of this encounter Goals Goal [...] AM EST Narrative 10/08/2023 5:03 PM EST [address] [address] Ultrasound Report Signed Patient: Naa Pedersen MR#: [id number] : 1955 Acct:[id number] Age/Sex: 67 / F ADM Date: 10/07/23 Loc: HO.US Attending Dr: Moira Edouard NP Ordering Physician: Moira Edouard NP Date of Service: 10/07/23 Procedure(s): US pelvic and transvaginal Accession Number(s): [id number] cc: Moira Edouard NP; Renan Cabral MD [...] in OV> 10/08/23 1659 DD/ 1146 TD/TT: Spanish Professor: Procedure Note Donotuseinterpreter, Image - 10/08/[address] [address] Ultrasound Report Signed Patient: Naa Pedersen EMR#: [id number] : 6Acct:[id number] Age/Sex: 67 / FADM Date: 10/07/23 Loc: HO.US Attending Dr: Moira Edouard NP Ordering Physician: Moira Edouard NP Date of Service: 10/07/23 Procedure(s): US pelvic and transvaginal Accession Number(s): [id number] cc: Moira Edouard EVIDENCE SPECIALIST; Renan Cabral MD EXAMINATION: US PELVIS CLINICAL [...] MD Signed By: <Electronically signed by Lynette Unedrwood MD in OV> 10/08/23 1659 DD/ 1146 TD/TT: Spanish Professor: us Moira Edouard JACKSPOOLER IMG US PROCEDURES Final Result documented in this encounter Visit Diagnoses Diagnosis Right lower quadrant abdominal pain- Primary documented in this encounter Additional Health Concerns Assessment Noted Time PHQ-9 Depression Total Score: 0 12/02/19 10:15 AM EST documented as of this encounter Care Teams Damage Assessor Relationship Specialty Start Date End Date Renan Lawson MD [address] [place] [address] PCP - General Internal Medicine 12/10/21 Edilberto Barahona, KyD [address] [place] [address] Pharmacist Internal Medicine 07/14/23 10/24/24 Richelle Albarado PharmD [address] [place] [address] Pharmacist Internal Medicine 10/25/24 documented as of this encounter
--- OUTSIDE RECORDS SUMMARY | 2025-10-15 10:29 | XMS_ITS | Encounter Summary ---
Author Organization [employer] [place] [employer] Address [address] [facility] [facility] [address] 7t [place] [address] Care Team Providers Care Meter Setter Name Role Phone Renan Lawson MD Primary Care Provide r Edilberto Barahona PharmD Unavailable [phone] Richelle Albarado PharmD Unavailable [phone] Reason for Visit * Reason Comments Med Refill Encounter Details Date Type Department Care Team ([facility] st Contact Info) Description 02/09/2024 Refill [facility] 230 [place], [place] [phone] Renan Lawson MD 230 [place], [place] [phone] Fibromyalgia Social History Tobacco Use Types Packs/Day [...] Description 11/13/2025 1:00 PM EST Medication Management [facility] [address] [place] [address] Richelle Albarado PharmD 230 [place] [address] documented as of this encounter Goals Goal [...] documented as of this encounter Care Teams Meter Setter Relationship Specialty Start Date End Date Renan Lawson MD [address] [place] [address] PCP - General Internal Medicine 12/10/21 Edilberto Barahona PharmD [address] [place] [address] Pharmacist Internal Medicine 07/14/23 10/24/24 Richelle Albarado PharmD [address] [place] [address] Pharmacist Internal Medicine 10/25/24 documented as of this encounter
--- OUTSIDE RECORDS SUMMARY | 2025-10-15 10:29 | XMS_ITS | Encounter Summary ---
Author Organization [employer] Address [address] [facility] [facility] [address] 7t [place] [address] Care Team Providers Care Peoplesoft Fscm Developer Name Role Phone Renan Lawson MD Primary Care Provide r Richelle Albarado PharmD Unavailable [phone] Encounter Details Date Type Department Care Team ([facility] Contact Info) Description 10/10/2025 Telephone [facility] 230 [place], [place] [phone] Renan Lawson MD 230 [place] [address] Social History Tobacco Use Types Packs/Day Years [...] encounter Miscellaneous Notes * Telephone Encounter - Stephanie Evans - 10/10/2025 8:31 AM EST PA initiated on Covermymeds for Cyclobenzaprine. Approval/denial pending. Malloy: [id number] documented in this encounter Plan of Treatment Upcoming Encounters Date Type Department Care Team (Late st Contact Info) Description 11/13/2025 1:00 PM EST Medication Management [facility] 230 [place] [address] Richelle Albarado PharmD [address] [place] [address] documented as of this encounter Goals Goal [...] Plan Weekly blood pressure task No Socorro Sampson, MILES Patient has chronic kidney disease Care Plan Patient has chronic kidney disease No Scoorro Sampson, MILES Patient has chronic kidney disease Care Plan Patient has chronic kidney disease No Socorro Sampson RN Weekly blood pressure task Care Plan Weekly blood pressure task No Stephanie Evans Weekly blood pressure task Care Plan Weekly blood pressure task No Stephanie Evans Patient has chronic kidney disease Care Plan Patient has chronic kidney disease No Stephanie Evans Patient has chronic kidney disease Care Plan Patient has chronic kidney disease No Evans, Stephanie documented as of this encounter Visit Diagnoses [...] 10/10/2025 Patient has chronic kidney disease 10/10/2025 Assessment Noted Time PHQ-9 Depression Total Score: 6 12/29/19 24 1:36 PM EST documented as of this encounter Care Teams Peoplesoft Fscm Developer Relationship Specialty Start Date End Date Renan Lawson MD [address] [place] [address] PCP - General Internal Medicine 12/10/21 Richelle Albarado PharmD [address] [place] [address] Pharmacist Internal Medicine 10/25/24 documented as of this encounter
--- OUTSIDE RECORDS SUMMARY | 2025-10-15 10:29 | XMS_ITS | Encounter Summary ---
Author Organization [employer] Address [address] [facility] [address] 7[address] [place] [address] Care Team Providers Care Fiscal Clerk Name Role Phone Renan Lawson MD Primary Care Provide r Edilberto Barahona PharmD Unavailable [phone] Richelle Albarado PharmD Unavailable [phone] Reason for Visit * Reason Onset Date Comments Appointment Request 08/26/2023 Encounter Details Date Type Department Care Team ([facility] Contact Info) Description 08/26/2023 Telephone [facility] [address] [place], [place] [phone] Renan Lawson MD 230 [place], [place] [phone] Appointment Request Social History Tobacco Use Types [...] Description 11/13/2025 1:00 PM EST Medication Management [facility] [address] [place] [address] Richelle Albarado PharmD [address] [place] [address] documented as of this encounter Goals Goal Patient Goal Type Associated Problems Recent Progress Patient-Stated? Author Blood Pressure < 140/90 Blood Pressure 158/76(2024 1:39 PM EST) No Edilberto Barahona PharmPercy Blood Pressure < 140/90 Blood Pressure Hypertension 158/76(2024 1:39 PM EST) No dEilberto Barahona, PharmD Keep fasting blood glucose between [...] documented as of this encounter Care Teams Fiscal Clerk Relationship Specialty Start Date End Date Renan Lawson MD [address] [place] [address] PCP - General Internal Medicine 12/10/21 Edilberto Barahona PharmD [address] [place] [address] Pharmacist Internal Medicine 07/14/23 10/24/24 Richelle Albarado PharmD [address] [place] [address] Pharmacist Internal Medicine 10/25/24 documented as of this encounter
--- OUTSIDE RECORDS SUMMARY | 2025-10-15 10:29 | XMS_ITS | Encounter Summary ---
Author Organization [employer] Address [address] 7[address] [place] [address] Care Team Providers Care Printmaker Name Role Phone Renan Lawson MD Primary Care Provide r Edilberto Barahona PharmD Unavailable [phone] Richelle Albarado PharmD Unavailable [phone] Encounter Details Date Type Department Care Team (Late st Contact Info) Description 01/13/2023 Abstract [facility] 230 [place], [place] [phone] Renan Lawson MD 230 [place], [place] [phone] Social History Tobacco Use Types Packs/Day Years [...] 1:00 PM EST Medication Management [facility] 230 [place] [address] Richelle Albarado, Toni 230 [place] [address] documented as of this encounter Visit Diagnoses Not on filedocumented in this encounter Additional Health Concerns Assessment Noted Time PHQ-9 Depression Total Score: 0 12/02/19 10:15 AM EST documented as of this encounter Care Teams Printmaker Relationship Specialty Start Date End Date Renan Lawson MD [address] [place] [address] PCP - General Internal Medicine 12/10/21 Edilberto Barahona PharmD [address] [place] [address] Pharmacist Internal Medicine 07/14/23 10/24/24 Richelle Albarado PharmD [address] [place] [address] Pharmacist Internal Medicine 10/25/24 documented as of this encounter
--- OUTSIDE RECORDS SUMMARY | 2025-10-15 10:29 | XMS_ITS | Encounter Summary ---
Author Organization [employer] Address [address] [facility] [address] 7[address] [place] [address] Care Team Providers Care Discharge Specialist Name Role Phone Renan Lawson MD Primary Care Provide r Edilberto Barahona PharmD Unavailable [phone] Richelle Albarado PharmD Unavailable [phone] Reason for Visit * Reason Comments Med Refill Encounter Details Date Type Department Care Team ([facility] st Contact Info) Description 08/26/2024 Refill [facility] 230 [place], [place] [phone] Renan Lawson MD 230 [place], [place] [phone] Social History Tobacco Use Types Packs/Day Years [...] Description 11/13/2025 1:00 PM EST Medication Management [facility] [address] [place] [address] Richelle Albarado PharmD 230 [place] [address] documented as of this encounter Goals Goal [...] documented as of this encounter Care Teams Discharge Specialist Relationship Specialty Start Date End Date Renan Lawson MD 230 [place] [address] PCP - General Internal Medicine 12/10/21 Edilberto Barahona, PharmD 230 [place] [address] Pharmacist Internal Medicine 07/14/23 10/24/24 Richelle Albarado, KyD 230 [place] [address] Pharmacist Internal Medicine 10/25/24 documented as of this encounter
--- OUTSIDE RECORDS SUMMARY | 2025-10-15 10:29 | XMS_ITS | Encounter Summary ---
Author Organization [employer] [facility] Address [address] [facility] 7t [place] [address] Care Team Providers Care Horseback Excavator Name Role Phone Renan Lawson MD Primary Care Provide r Edilberto Barahona PharmD Unavailable [phone] Richelle Albarado PharmD Unavailable [phone] Encounter Details Date Type Department Care Team ([facility] Contact Info) Description 11/14/2022 Telephone [facility] 230 [place], [place] [phone] Renan Lawson MD [address] [place] [address] [phone] Social History Tobacco Use Types Packs/Day Years [...] Upcoming Encounters Date Type Department Care Team ([facility] Contact Info) Description 11/13/2025 1:00 PM EST Medication Management [facility] [address] [place] [phone] Richelle Albarado PharmD [address] [place] [address] documented as of this encounter Visit Diagnoses Not on filedocumented in this encounter Care Teams Horseback Excavator Relationship Specialty Start Date End Date Renan Lawson MD [address] [place] [address] PCP - General Internal Medicine 12/10/21 Edilberto Barahona PharmD [address] [place] [address] Pharmacist Internal Medicine 07/14/23 10/24/24 Richelle Albarado PharmD [address] [place] [address] Pharmacist Internal Medicine 10/25/24 documented as of this encounter
--- OUTSIDE RECORDS SUMMARY | 2025-10-15 10:29 | XMS_ITS | Encounter Summary ---
Author Organization [employer] Address [address] [facility] 7t [place] [address] Care Team Providers Care Bottom Stainer Name Role Phone Renan Lawson MD Primary Care Provide r Edilberto Barahona PharmD Unavailable [phone] Richelle Albarado PharmD Unavailable [phone] Encounter Details Date Type Department Care Team (Late Contact Info) Description 10/22/2022 Orders Only [facility] [address] [place] [address] Denise Leyva LPN Social History Tobacco Use [...] Description 11/13/2025 1:00 PM EST Medication Management [facility] 230 [place] [address] Richelle Albarado PharmD 230 [place] [address] documented as of this encounter Visit Diagnoses Not on filedocumented in this encounter Care Teams Bottom Stainer Relationship Specialty Start Date End Date Renan Lawson MD 230 [place] [address] PCP - General Internal Medicine 12/10/21 Edilberto Barahona, KyD [address] [place] [address] Pharmacist Internal Medicine 07/14/23 10/24/24 Richelle Albarado PharmD [address] [place] [address] Pharmacist Internal Medicine 10/25/24 documented as of this encounter
== END 2025-10-15 10:27 | disposition home or self-care (01) ==
LOC: HO.MRI 10:26
PROVIDERS: Visit Provider Physician Assistant
DX: M17.12 Unilateral primary osteoarthritis, left knee (principal)
CPT/HCPCS: 73721

== ENCOUNTER → 2025-10-15 10:34 | Outpatient (BNV) | payer MEDICARE, MEDICAID, SELFPAY | PROVIDERS: Visit Provider Radiology Diagnostic Ultrasound | DX: M17.12 Unilateral primary osteoarthritis, left knee (principal); M25.462 Effusion, left knee | CPT/HCPCS: 73721 ==

== ENCOUNTER 2025-10-19 12:56 | Outpatient (REF) | payer MEDICARE, MEDICAID, SELFPAY ==
--- OUTSIDE RECORDS SUMMARY | 2025-10-19 20:51 | XMS_ITS | Encounter Summary ---
Author Organization [employer] Address [address] [place] [address] Care Team Providers Care Brake Repairer Name Role Phone Renan Lawson MD Primary Care Provide r Edilberto Barahona PharmD Unavailable [phone] Richelle Albarado PharmD Unavailable [phone] Reason for Visit * Reason Comments Med Refill Encounter Details Date Type Department Care Team ([facility] st Contact Info) Description 02/09/2024 Refill [facility] MED[facility] [address] [place], [place] [phone] Renan Lawson MD [address] [place], [place] [phone] Fibromyalgia Social History Tobacco Use Types Packs/Day [...] Description 11/13/2025 1:00 PM EST Medication Management [facility] [address] [place] [address] Richelle Albarado PharmD [address] [place] [address] documented as of this encounter Goals Goal [...] documented as of this encounter Care Teams Brake Repairer Relationship Specialty Start Date End Date Renan Lawson MD [address] [place] [phone] PCP - General Internal Medicine 12/10/21 Edilberto Barahona PharmD [address] [place] [phone] Pharmacist Internal Medicine 07/14/23 10/24/24 Richelle Albarado PharmD [address] [place] [address] Pharmacist Internal Medicine 10/25/24 documented as of this encounter
--- OUTSIDE RECORDS SUMMARY | 2025-10-19 20:51 | XMS_ITS | Patient Health Record ---
Author Organization [facility] Address [address] [place] [address] Care Team Providers Care Dump Motorman Name Role Phone Deandre Aparicio MD, Renan Primary Care Provide r Unavailable Eric Emmanuel Unavailable [phone] Reason For Referral No Information Plan Of Treatment No Information Insurance Providers Payer Name Payer Address Payer Phone Subscriber Number Group Number Insured Name Patient Relationship to Insured Coverage Start Date Coverage End Date MEDICARE OF [place] [address] [place] [phone] [id number] [employer] Self - patient is the insured MEDICAID OF [facility] [address] [place] [address] [id number] [employer] Self - patient is the insured
--- OUTSIDE RECORDS SUMMARY | 2025-10-19 20:51 | XMS_ITS | Encounter Summary ---
Author Organization [email or web address] Address [address] [place] [address] Care Team Providers Care Solution Make Up Operator Name Role Phone Renan Lawson MD Primary Care Provide r Edilberto Barahona PharmD Unavailable [phone] Richelle Albarado PharmD Unavailable [phone] Encounter Details Date Type Department Care Team (Late st Contact Info) Description 01/13/2023 Abstract [facility] [address] [place], [place] [phone] Renan Lawson MD [address] [place], [place] [phone] Social History Tobacco Use Types Packs/Day Years [...] Description 11/13/2025 1:00 PM EST Medication Management [facility] [address] [place] [address] Richelle Albarado, Toni [address] [place] [address] documented as of this encounter Visit Diagnoses Not on filedocumented in this encounter Additional Health Concerns Assessment Noted Time PHQ-9 Depression Total Score: 0 12/02/19 10:15 AM EST documented as of this encounter Care Teams Solution Make Up Operator Relationship Specialty Start Date End Date Renan Lawson MD [address] [place] [phone] PCP - General Internal Medicine 12/10/21 Edilberto Barahona PharmD [address] [place] [phone] Pharmacist Internal Medicine 07/14/23 10/24/24 Richelle Albarado PharmD [address] [place] [address] Pharmacist Internal Medicine 10/25/24 documented as of this encounter
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
--- OUTSIDE RECORDS SUMMARY | 2025-10-19 20:51 | XMS_ITS | Encounter Summary ---
Author Organization [employer] Address [address] [place] [address] Care Team Providers Care Wafer Production Lead Worker Name Role Phone Renan Lawson MD Primary Care Provide r Edilberto Barahona PharmD Unavailable [phone] Richelle Albarado PharmD Unavailable [phone] Encounter Details Date Type Department Care Team (Late st Contact Info) Description 12/17/2022 Abstract [facility] MEDICINE [address] [place], [place] [phone] Renan Lawson MD [address] [place], [place] [phone] Social History Tobacco Use Types Packs/Day Years [...] Description 11/13/2025 1:00 PM EST Medication Management [facility] MEDICINE [address] [place] [address] Richelle Albarado, Toni [address] [place] [address] documented as of this encounter Visit Diagnoses Not on filedocumented in this encounter Additional Health Concerns Assessment Noted Time PHQ-9 Depression Total Score: 0 12/02/19 10:15 AM EST documented as of this encounter Care Teams Wafer Production Lead Worker Relationship Specialty Start Date End Date Renan Lawson MD [address] [place] [address] PCP - General Internal Medicine 12/10/21 Edilberto Barahona PharmD [address] [place] [address] Pharmacist Internal Medicine 07/14/23 10/24/24 Richelle Albarado PharmD [address] [place] [address] Pharmacist Internal Medicine 10/25/24 documented as of this encounter
--- OUTSIDE RECORDS SUMMARY | 2025-10-19 20:51 | XMS_ITS | Encounter Summary ---
Author Organization [employer] Address [address] [place] [address] Care Team Providers Care Gear Finisher Name Role Phone Renan Lawson MD Primary Care Provide r Edilberto Barahona PharmD Unavailable [phone] Richelle Albarado PharmD Unavailable [phone] Reason for Visit * Reason Comments Med Refill Encounter Details Date Type Department Care Team ([facility] st Contact Info) Description 01/15/2024 Refill [facility] [address] [place], [place] [phone] Shantell Will MD [address] [place], [place] [phone] Fibromyalgia Social History Tobacco Use Types Packs/Day [...] Description 11/13/2025 1:00 PM EST Medication Management [facility] [address] [place] [address] Richelle Albarado PharmD [address] [place] [address] documented as of this encounter Goals Goal [...] documented as of this encounter Care Teams Gear Finisher Relationship Specialty Start Date End Date Renan Lawson MD [address] [place] [address] PCP - General Internal Medicine 12/10/21 Edilberto Barahona PharmD [address] [place] [address] Pharmacist Internal Medicine 07/14/23 10/24/24 Richelle Albarado PharmD [address] [place] [address] Pharmacist Internal Medicine 10/25/24 documented as of this encounter
--- OUTSIDE RECORDS SUMMARY | 2025-10-19 20:51 | XMS_ITS | Encounter Summary ---
Author Organization [employer] Address [address] [facility] [address] [place] [address] Care Team Providers Care Mask Designer Name Role Phone Renan Lawson MD Primary Care Provide r Edilberto Barahona PharmD Unavailable [phone] Richelle Albarado PharmD Unavailable [phone] Encounter Details Date Type Department Care Team (Late Contact Info) Description 10/22/2022 Orders Only [facility] [address] [place] [address] Denise Leyva LPN Social History Tobacco Use [...] 11/13/2025 1:00 PM EST Medication Management [facility] [address] [place] [address] Richelle Albarado PharmD [address] [place] [address] documented as of this encounter Visit Diagnoses Not on filedocumented in this encounter Care Teams Mask Designer Relationship Specialty Start Date End Date Renan Lawson MD [address] [place] [address] PCP - General Internal Medicine 12/10/21 Edilberto Barahona, yKD [address] [place] [address] Pharmacist Internal Medicine 07/14/23 10/24/24 Richelle Albarado PharmD [address] [place] [address] Pharmacist Internal Medicine 10/25/24 documented as of this encounter
--- OUTSIDE RECORDS SUMMARY | 2025-10-19 20:51 | XMS_ITS | Encounter Summary ---
Author Organization [facility] Address [address] [place] [address] Care Team Providers Care Wheel Setter Name Role Phone Renan Lawson MD Primary Care Provide r Edilberto Barahona PharmD Unavailable [phone] Richelle Albarado PharmD Unavailable [phone] Encounter Details Date Type Department Care Team ([facility] Contact Info) Description 11/14/2022 Telephone [facility] MEDICINE [address] [place], [place] [phone] Renan Lawson MD [address] [place] [address] [phone] Social History Tobacco Use Types Packs/Day Years [...] Upcoming Encounters Date Type Department Care Team ([facility] Contact Info) Description 11/13/2025 1:00 PM EST Medication Management [facility] MEDICINE [address] [place] [address] [phone] Richelle Albarado PharmD [address] [place] [address] documented as of this encounter Visit Diagnoses Not on filedocumented in this encounter Care Teams Wheel Setter Relationship Specialty Start Date End Date Renan Lawson MD [address] [place] [phone] PCP - General Internal Medicine 12/10/21 Edilberto Barahona PharmD [address] [place] [phone] Pharmacist Internal Medicine 07/14/23 10/24/24 Richelle Albarado PharmD [address] [place] [phone] Pharmacist Internal Medicine 10/25/24 documented as of this encounter
--- OUTSIDE RECORDS SUMMARY | 2025-10-19 20:52 | XMS_ITS | Encounter Summary ---
Author Organization [employer] [facility] Address [address] [facility] 7t [place] [address] Care Team Providers Care Strap Sewer Name Role Phone Renan Lawson MD Primary Care Provide r Edilberto Barahona PharmD Unavailable [phone] Richelle Albarado PharmD Unavailable [phone] Reason for Referral * Imaging (Routine) - Closed Specialty Diagnoses / Procedures Referred By Tiffany milian Referred To Contact Radiology Diagnoses Right lower quadrant abdominal pain Procedures US Pelvis Transvaginal Moira Edouard FNP [address] [place] [address] Phone: tel: fax: [facility] [address] [place] [phone] Phone: tel: fax: Referral ID Status Reason Start Date Expiration Date Visits Re quested Visits Authorized [id number] Closed 08/07/2023 08/06/2024 1 1 Encounter Details Date Type Department Care Team (Late st Contact Info) Description 08/07/2023 Orders Only [facility] [address] [place] [address] Moira Edouard FNP [address] [place] [address] Right lower quadrant abdominal pain (Primary Dx) [...] Description 11/13/2025 1:00 PM EST Medication Management [facility] [address] [place], [place] [phone] Richelle Albarado PharmD [address] [place] [address] documented as of this encounter Goals Goal [...] AM EST Narrative 10/08/2023 5:03 PM EST [address] [address] Ultrasound Report Signed Patient: Naa Pedersen MR#: [id number] : 1955 Acct:[id number] Age/Sex: 67 / F ADM Date: 10/07/23 Loc: HO.US Attending Dr: Moira Edouard NP Ordering Physician: Moira Edouard NP Date of Service: 10/07/23 Procedure(s): US pelvic and transvaginal Accession Number(s): [id number] cc: Moira Edouard NP; Renan Cabral MD [...] in OV> 10/08/23 1659 DD/ 1146 TD/TT: Key Filer: Procedure Note Donotuseinterpreter, Image - 10/08/[address] [address] Ultrasound Report Signed Patient: Naa Pedersen EMR#: [id number] : 6Acct:[id number] Age/Sex: 67 / FADM Date: 10/07/23 Loc: HO.US Attending Dr: Moira Edouard NP Ordering Physician: Moira Edouard NP Date of Service: 10/07/23 Procedure(s): US pelvic and transvaginal Accession Number(s): [id number] cc: Moira Edouard FABRICATION INSPECTOR; Renan Cabral MD EXAMINATION: US PELVIS CLINICAL [...] in OV> 10/08/23 1659 DD/ 1146 TD/TT: Key Filer: us Moira Edouard RESIN COATER IMG US PROCEDURES Final Result documented in this encounter Visit Diagnoses Diagnosis Right lower quadrant abdominal pain- Primary documented in this encounter Additional Health Concerns Assessment Noted Time PHQ-9 Depression Total Score: 0 12/02/19 10:15 AM EST documented as of this encounter Care Teams Strap Sewer Relationship Specialty Start Date End Date Renan Lawson MD [address] [place] [address] PCP - General Internal Medicine 12/10/21 Edilberto Barahona, KyD [address] [place] [address] Pharmacist Internal Medicine 07/14/23 10/24/24 Richelle Albarado PharmD [address] [place] [address] Pharmacist Internal Medicine 10/25/24 documented as of this encounter
--- OUTSIDE RECORDS SUMMARY | 2025-10-19 20:52 | XMS_ITS | Encounter Summary ---
Author Organization [employer] Address [address] [facility] [address] 7t [place] [address] Care Team Providers Care Corn Press Operator Name Role Phone Renan Lawson MD Primary Care Provide r Edilberto Barahona PharmD Unavailable [phone] Richelle Albarado PharmD Unavailable [phone] Reason for Visit * Reason Onset Date Comments Reschedule 05/20/2023 Encounter Details Date Type Department Care Team ([facility] Contact Info) Description 05/20/2023 Telephone [facility] [address] [place], [place] [phone] Renan Lawson MD [address] [place], [place] [phone] Reschedule Social History Tobacco Use Types Packs/Day [...] knee injection appointment. Please contact pt at [phone] (Mohawk speaker) documented in this encounter Plan of Treatment Upcoming Encounters Date Type Department Care Team (Late st Contact Info) Description 11/13/2025 1:00 PM EST Medication Management [facility] MEDICINE [address] [place], [place] [phone] Richelle Albarado PharmD [address] [place], [place] documented as of this encounter Goals [...] documented as of this encounter Care Teams Corn Press Operator Relationship Specialty Start Date End Date Renan Lawson MD [address] [place] [address] PCP - General Internal Medicine 12/10/21 Edilberto Barahona PharmD [address] [place] [phone] Pharmacist Internal Medicine 07/14/23 10/24/24 Richelle Albarado PharmD [address] [place] [phone] Pharmacist Internal Medicine 10/25/24 documented as of this encounter
--- OUTSIDE RECORDS SUMMARY | 2025-10-19 20:52 | XMS_ITS | Encounter Summary ---
Author Organization [employer] Address [address] [facility] 7t [place] [address] Care Team Providers Care It Application Administrator Name Role Phone Renan Lawson MD Primary Care Provide r Edilberto Barahona PharmD Unavailable [phone] Richelle Albarado PharmD Unavailable [phone] Reason for Visit * Reason Comments Med Refill Encounter Details Date Type Department Care Team ([facility] st Contact Info) Description 08/26/[address] [facility] MEDICINE [address] [place], [place] [phone] Renan Lawson MD [address] [place], [place] [phone] Social History Tobacco Use Types Packs/Day Years [...] Description 11/13/2025 1:00 PM EST Medication Management [facility] [address] [place] [address] Richelle Albarado PharmD [address] [place] [address] documented as of this encounter Goals Goal [...] as of this encounter Care Teams It Application Administrator Relationship Specialty Start Date End Date Renan Lawson MD [address] [place] [address] PCP - General Internal Medicine 12/10/21 Edilberto Barahona, PharmD [address] [place] [address] Pharmacist Internal Medicine 07/14/23 10/24/24 Richelle Albarado, yKD [address] [place] [address] Pharmacist Internal Medicine 10/25/24 documented as of this encounter
--- OUTSIDE RECORDS SUMMARY | 2025-10-19 20:52 | XMS_ITS | Encounter Summary ---
Author Organization [employer] Address [address] [facility] [facility] [address] 7t [place] [address] Care Team Providers Care Beauty Operator Name Role Phone Renan Lawson MD Primary Care Provide r Edilberto Barahona PharmD Unavailable [phone] Richelle Albarado PharmD Unavailable [phone] Reason for Visit * Reason Onset Date Comments Appointment Request 08/26/2023 Encounter Details Date Type Department Care Team ([facility] Contact Info) Description 08/26/2023 Telephone [facility] [address] [place], [place] [phone] Renan Lawson MD [address] [place], [place] [phone] Appointment Request Social History Tobacco Use Types [...] 1:00 PM EST Medication Management [facility] [address] [place] [address] Richelle Albarado PharmD [address] [place] [address] documented as of this encounter Goals Goal [...] documented as of this encounter Care Teams Beauty Operator Relationship Specialty Start Date End Date Renan Lawson MD [address] [place] [address] PCP - General Internal Medicine 12/10/21 Edilberto Barahona PharmD [address] [place] [address] Pharmacist Internal Medicine 07/14/23 10/24/24 Richelle Albarado PharmD [address] [place] [address] Pharmacist Internal Medicine 10/25/24 documented as of this encounter
--- OUTSIDE RECORDS SUMMARY | 2025-10-19 20:52 | XMS_ITS | Data Portability ---
Author Organization [place] [facility], Allergy Address [address] [address] Assessment Encounter Date Assessment Date Assessment LastModified by Organization Details LastModified Time 07/06/2024 07/06/2024 Administered By: Iman Santos RN Use of Antihistamines: No If yes: Vial Test Change in medications: No If yes Increase in asthma symptoms No If yes, inhaler use: Reaction to last injections: No If yes: Allergy Symptoms: Other: Missed 1 week Dose Notes:aware of vial test [email or web address] Not available 07/06/2024 14:13:56 07/21/2024 07/21/2024 Administered By: ELIZABETH Edmondson Use of Antihistamines: No If yes: Vial Test Yes Change in medications: No If yes Increase in asthma symptoms If yes, inhaler use: Reaction to last injections: No If yes: Allergy Symptoms: Other: Missed 1 week Yes Dose Repeated Notes: norman Not available 07/21/2024 10:08:03 07/29/2024 07/29/2024 Administered By: Lesa Brink Use of Antihistamines: No If yes: Vial Test Change in medications: No If yes Increase in asthma symptoms If yes, inhaler use: Reaction to last injections: No If yes: Allergy Symptoms: Other: Missed 1 week Dose Notes: Not available 07/29/2024 13:27:27 09/07/2024 09/07/2024 Administered By: Iman Santos RN Use of Antihistamines: No If yes: Vial Test Change in medications: No If yes Increase in asthma symptoms If yes, inhaler use: Reaction to last injections: No If yes: Allergy Symptoms: Other: Missed 1 week Dose Notes:missed 1 month dose decreased skorzec Not available 09/07/2024 15:26:46 09/21/2024 09/21/2024 Administered By: ELIZABETH Edmondson Use of Antihistamines: No If yes: Vial Test Change in medications: No If yes Increase in asthma symptoms If yes, inhaler use: Reaction to last injections: No If yes: Allergy Symptoms: Other: Missed 1 week Dose Notes: skorzec Not available 09/21/2024 10:54:52 Plan of [...] Organization Details Recorded Time Itching of skin 614674322 Active 2018 Pruritus, unspecifi ed; Note: Date Diagnosed : 02/08/2019 3:52 PM (L29.9) Not Available [facility] 4 02:22:18 Nasal congestion 27890464 Active 2018 Nasal congestio n; Note: Date Diagnosed : 02/08/2019 3:56 PM (R09.81) Not Available [facility] 4 02:21:46 Gastro-eso phageal reflux disease with esophagiti s 147917108 Active 2018 Gastro-es ophageal reflux disease with esophagit is; Note: Date Diagnosed : 04/07/2019 1:10 PM (K21.0) Not Available [facility] 4 02:21:39 Asthenia 40572825 Active 2018 Asthenia NOS; Note: Date Diagnosed : 10/10/2019 9:51 AM (R53.1) Not Available [facility] 4 02:21:50 Allergic rhinitis 38619909 Active 2019 [facility]CIT 03/2024 ANDREW ALEJANDRO MD [address] [place] [address], [facility] [place], [address] , [place] - [facility] 13:42:19 Perennial allergic rhinitis 488717854 Active 2023 MECHE BARRINGTON, RMA [address],[place] [address], [place], [address] , [place] - [facility] 13:30:45 Problem Notes None recorded. Procedures Surgical History Date Name Laterality Status Provider Name and Address Organization Details Recorded Time 09/21/20 24 Allergy Immunotherapy Injections completed MECHE BARRINGTON, RMA [address], [place], [address], [facility] - [facility] 09/21/2024 10:54:46 09/07/20 24 Allergy Immunotherapy Injections completed MECHE FERRIS, RMA [address],[place] [address] [place] [address], [phone], [facility] - [facility] 09/07/2024 15:26:03 07/29/20 24 Allergy Immunotherapy Injections completed LESA BRINK A [address],[place] [address] [place] [address], [phone], [facility] - [facility] 07/29/2024 13:27:22 07/21/20 24 Allergy Immunotherapy Injections completed MECHE FERRIS RMA [address],[place] [address] [place] [address], [phone], [facility] - [facility] 07/21/2024 10:07:54 07/06/20 24 Allergy Immunotherapy Injections completed IMAN SANTOS RN [address] [facility] [place],[address], [address], [facility] - [facility] 07/06/2024 14:13:42 06/23/20 24 Allergy Immunotherapy Injections completed MECHE FERRIS, RMA [address],[place] [address] [place] [address], [phone], [place] - [facility] 06/23/2024 13:25:45 06/15/20 24 Allergy Immunotherapy Injections completed MECHE MASTERSONC, RMA [address],[place] [address], [place], [address], [place] - [facility] 06/15/2024 14:07:46 05/05/20 24 Allergy Immunotherapy Injections completed MECHE FERRIS, A [address] [place],[address], [place], [address], [facility] - [facility] 05/05/2024 13:06:00 04/28/20 24 Allergy Immunotherapy Injections completed LESA BRINK, A [address] [facility] [place] [address], [place], [address], [facility] - [facility] 04/28/2024 14:05:19 04/20/20 24 Allergy Immunotherapy Injections completed LESA BRINK, [facility] [address] [facility],[place] [address], [place], [address], [facility] - [facility] 04/20/2024 14:27:52 04/08/20 24 Allergy Immunotherapy Injections completed LESA BRINK, [facility] [address] [facility],[address], [address], [facility] - [facility] 04/08/2024 13:04:02 03/30/20 24 Allergy Immunotherapy Injections completed MECHE ALEJA, [facility] [address] [facility],[address], [address], [facility] - [facility] 03/30/2024 13:31:25 Imaging Results None recorded. Procedure Notes None recorded. Medical Equipment None Reported. Allergies Allergen ID Allergen Name Allergen Category Reaction Reaction Severity Criticality Documentation Date Start Date Code Code System Note Provider Name and Address Organization Details Recorded Time 32362 morphine medicatio n other Not available Not available 03/22/2024 7052 RxNorm React ion: unkno wn, unspe cifie d;; Not Available [facility] 00:54:57 Medications Name Sig Start Date Stop Date Status Note LastModified by Organization Details LastModified Time medbox status USE DIRECTED active Not Available Not Available No t Available metformin 500 mg tablet 03/10 completed Medicati on ID: [id number] D uration Value: 30 Brand Name: metformi [...] nebulizat ion 03/10 completed Medicati on ID: [id number] D uration Value: 15 Brand Name: albutero l sulfate Send Method: E-Prescr ibed Sub s Allowed: subs OK Speci al Instruct ion: INHALE 1 VIAL BY NEBULIZA TION EVERY 4 HOURS NEEDED FOR WHEEZING FOR UP TO 30 DAYS. Me dication GenericN meng: albutero l sulfate Not Available Not Available Not Available trazodone 50 mg tablet 03/10 completed Medicati on ID: [id number] D uration Value: 30 Brand Name: trazodon [...] mg tablet 03/10 completed Medicati on ID: [id number] D uration Value: 30 Brand Name: atorvast [...] mg tablet 03/10 completed Medicati on ID: [id number] D uration Value: 30 Brand Name: clonazep [...] mg tablet 03/18 completed Medicati on ID: [id number] D uration Value: 10 Reason: () Brand [...] topical patch 03/10 completed Medicati on ID: [id number] D uration Value: 28 Brand Name: lidocain e Send Method: E-Prescr ibed Sub s Allowed: subs OK Medic ationGen ericName : lidocain e Not Available Not Available Not Available verapamil ER (PM) 300 mg capsule 24hr pellet CT,ext.re lease 03/10 completed Medicati on ID: [id number] D uration Value: 30 Brand Name: verapami l Send Method: E-Prescr ibed Sub s Allowed: subs OK Speci al Instruct ion: TOME EVELIO CAPSULA POR V?A ORAL TODOS LOS D? Med icationG enericNa me: verapami l Not Available Not Available Not Available Advair Diskus 250 mcg-50 mcg/dose powder for inhalatio n active Medicati on ID: 841354 B rand Name: Advair Diskus S end Method: E-Prescr ibed Sub s Allowed: subs OK Medic ationGen ericName : Advair Diskus Not Available Not Available Not Available nitroglyc deonna 0.4 mg sublingua l tablet 03/10 completed Medicati on ID: 665335 B rand Name: nitrogly cerin Se nd Method: E-Prescr ibed Sub s Allowed: subs OK Medic ationGen ericName : nitrogly cerin Not Available Not Available Not Available mirtazapi ne 45 mg tablet TOME EVELIO TABLETA TODOS LOS D AL [employer] E active Not Available Not Available No t Available ammonium lactate 12 % topical cream 03/10 completed Medicati on ID: 590565 D uration Value: 30 Brand Name: ammonium [...] both nostrils 03/10 completed Medicati on ID: [id number] P raquelrirosemarie d By Name: BEST Blackmon nd Name: [...] mg tablet 03/10 completed Medicati on ID: [id number] D uration Value: 7 Brand Name: oxycodon e Send Method: E-Prescr ibed Sub s Allowed: subs OK Medic ationGen ericName : oxycodon e Not Available Not Available Not Available Vitamin B-12 ER 1,000 mcg tablet,ex tended release 03/10 completed Medicati on ID: [id number] D uration Value: 30 Brand Name: Vitamin [...] extended release 05/31 completed Medicati on ID: [id number] D uration Value: 30 Reason: () Brand [...] Available pregabali n 150 mg capsule TOME EVELOI C PSULA DOS VECES AL D A FOR 30 DAYS active Not Available Not Available No t Available pregabali n 200 mg capsule TAKE 1 CAPSULE BY MOUTH TWICE DAILY IN THE MORNING AND IN THE EVENING active Not Available Not Available No t Available Lyrica 50 mg capsule 03/10 completed Medicati on ID: 847495 D uration Value: 30 Brand Name: Lyrica S end Method: E-Prescr ibed Sub s Allowed: subs OK Medic ationGen ericName : Lyrica Not Available Not Available Not Available morphine active Not Available Not Avai lable Not Available DermOtic Oil 0.01 % ear drops 2 drop 03/10 completed Medicati on ID: [id number] P rescribe d By Name: Andrew Alejandro M.D. Bra nd Name: DermOtic Oil Send Method: E-Prescr ibed Sub s Allowed: subs OK Medic ationGen ericName : DermOtic Oil Not Available Not Available Not Available ProAir HFA 03/10 completed Medicati on ID: [id number] D uration Value: 17 Brand Name: ProAir HFA Send Method: E-Prescr ibed Sub s Allowed: subs OK Speci al Instruct ion: INHALE 2 PUFFS INTO THE LUNGS 4 TIMES DAILY NEEDED FOR WHEEZING OR SHORTNES S OF BREATH. Medicati onGeneri cName: ProAir HFA Not Available Not Available Not Available FreeStyle [place] Lite kit USE DIRECTED TO CHECK BLOOD [...] gram oral soln active Medicati on ID: 748634 B rand Name: sodium,p otassium ,mag sulfates Send Method: E-Prescr ibed Sub s Allowed: subs OK Medic ationGen ericName : sodium,p otassium ,mag sulfates Not Available Not Available Not Available Vitamin D3 50 mcg (2,000 unit) capsule 03/10 completed Medicati on ID: [id number] D uration Value: 30 Brand Name: Vitamin [...] for inhalatio n active Medicati on ID: 190338 B rand Name: Breo Ellipta Send Method: [...] ous pen injector active Medicati on ID: 702373 B rand Name: Trulicit y Send Method: [...] Diagnosis SNOMED-CT Code Diagnosis ICD10 Code Diagnosis IMO Codes Diagnosis Note [id number] MECHE MASTERSON, RMA Allergy [address] [facility] 100 [facility] [place] [address] 03/30/2024 13:29:57 03/30/2024 15:45:29 Perennial allergic rhinitis [id number] J30.89 2261 [facility], RMA Allergy [address] [facility],[address] [place] [address] 04/08/2024 12:39:27 04/08/2024 15:21:01 Perennial allergic rhinitis [id number] J30.89 3805 LESA BRINK, [facility] Allergy [address] [facility],[address] [place] [address] 04/20/2024 13:25:00 04/20/2024 15:25:45 Perennial allergic rhinitis [id number] J30.89 4947 [facility], RMA Allergy [address] [facility],[address] [place] [address] 04/28/2024 14:04:28 04/28/2024 15:40:21 Perennial allergic rhinitis [id number] J30.89 5878 [facility], A Allergy [address] [facility],[address] [place] [address] 05/05/2024 12:11:55 05/05/2024 13:31:24 Perennial allergic rhinitis [id number] J30.89 24143 [facility], A Allergy [address] [facility],[address] [place] [address] 06/15/2024 13:51:37 06/15/2024 15:10:46 Perennial allergic rhinitis [id number] J30.89 28[address] [facility], A Allergy [address] [facility],[address] [place] [address] 06/23/2024 13:05:12 06/23/2024 15:14:31 Perennial allergic rhinitis [id number] J30.89 85241 IMAN SANTOS, body cleaner [address] [facility],[address] [place] [address] 07/06/2024 13:08:13 07/06/2024 14:15:45 Perennial allergic rhinitis [id number] J30.89 [address] [facility], RMA Allergy [address] [facility],[address] [place] [address] 07/21/2024 10:07:04 07/21/2024 11:35:26 Perennial allergic rhinitis [id number] J30.89 23302 LESA BRINK, A Allergy [address] [facility],[address] [place] [address] 07/29/2024 13:19:08 07/29/2024 13:36:43 Perennial allergic rhinitis [id number] J30.89 90999 IMAN SANTOS RN Allergy [address] [facility],[address] [place] [address] 09/07/2024 12:39:33 09/07/2024 15:27:20 Perennial allergic rhinitis [id number] J30.89 [id number] MECHE FERRIS, [facility] Allergy [address] [facility],[address] [place] [address] 09/21/2024 10:30:22 09/21/2024 10:55:14 Perennial allergic rhinitis 892464576 J30.89 Health Concerns Section Related Observation LastModified by Organization Detai ls LastModified Time None Recorded Concern Status LastModified by Organization Details LastModified Time None Recorded Advance Directives Directive None Recorded Payers Insurance Date Sequence Insurance Name Policy Number Policy Franks Covered Member ID Franks Member ID Guarantor Name 02/15/2025 1 [place]IC[place] [employer] Naa Pedersen [id number] Naa Pedersen 02/15/2025 2 [place] [facility] Naa Pedersen [id number] Naa Pedersen OBGyn Episode No OBEpisode recorded.
--- OUTSIDE RECORDS SUMMARY | 2025-10-19 20:52 | XMS_ITS | Clinical Summary ---
Author Organization [employer] Address [address] [facility] 7t [place] [address] Care Team Providers Care Telephone Operator Receptionist Name Role Phone Renan Lawson MD Primary Care Provide r Richelle Albarado PharmD Unavailable [phone] Allergies Active Allergy Reactions Criticality Noted Date [...] 024 Active Blood Glucose Monitoring Suppl (FreeStyle [place] Lite) w/Device kit USE DIRECTED TO TEST [...] 100 each 11 024 Active Continuous Glucose Primary Care Sales Representative (FreeStyle Richard 3 [place]) deviceIndications :Diabetes mellitus type 2 with neurological [...] Pt was seen by an orthopaedist at [facility]. [facility] health care 12/02/2022 [...] for a HDF, She was admitted to [facility] from 11/10--05/2023 She presented with syncope with [...] acute finding. Pt was seen by her Record Searcher Dr Freeman and is currently wearing an [...] atorvastatin, Zetia and Praluent. Last seen by Record Searcher Dr Freeman 03/15/2025 Assessment & Plan (09/29/2024 [...] atorvastatin, Zetia and Praluent. Last seen by Record Searcher Dr Freeman 07/2024 Assessment & Plan (09/15/2023 [...] Patient under the care of [facility], last seen 04/11/2025 Currently on Ventolin , [...] Patient under the care of [facility], last seen 07/29/2024 Currently on Ventolin , uses albuterol nebulizarions as well. Dr Carson stopped her other inhalers Assessment & Plan (09/15/2023 3:23 PM EST): Patient under the care of [facility], last seen April Currently on Ventolin and Breztri Aerosphere , uses albuterol nebulizarions as well Assessment & Plan (12/02/2022 8:52 AM EST): Patient under the care of [facility], last seen January 2022 Currently on Ventolin [...] PM EDT): Pt under the care of [facility] at [facility] , last seen 03/29/2025 Currently on a regimen of Dexilant 60 mg po daily and Omeprazole 40 mg po daily Assessment & Plan (12/29/2023 1:11 PM EST): Pt under the care of [facility] at [facility] , last seen 10/2023 Currently on a regimen of Dexilant 60 mg po daily and Omeprazole 40 mg po daily Assessment & Plan (12/02/2022 8:52 AM EST): Pt under the care of [facility] at [facility] Currently on a regimen of Dexilant 60 [...] (05/04/2023 3:40 PM EDT): - Freestyle Richard [place] and Sensor Ordered - A1c is not [...] found on MRI of lower back at [facility] in 2008, unchanged 2009. Sl enlarged 2013. Ref uro Assessment & Plan (05/11/2025 12:57 PM EDT): Under the care of Urology, last seen 01/12/2025 Davis's esophagus 01/03/2013 Overview (12/02/2022): Last EGD - Dr. Parviz Sommers, [facility] 01.06.2020 Assessment & Plan (09/29/2024 2:39 PM [...] daily History: - followed by Nixon's office [facility] Cardiology Assessment & Plan (05/11/2025 12:55 PM [...] followed by Dr. Jarod Angelo ([address] ). She is now under the care of the Pain Clinic at [facility] Re cent x-ray ordered by them 12/22/2023 [...] is being followed by Dr. Jarod Angelo ([address] [facility] ). She is now under the care of the Pain Clinic at [facility] Re cent x-ray ordered by them 12/22/2023 [...] request records from most recent MRI at [facility] pt is being followed by Dr. Jarod Angelo ([address] [place] [address] ). Depressive disorder 11/09/1959 Assessment & Plan (12/23/2022 2:42 PM EST): Patient under the care of psychiatrist at [place] Currently on a regimen of: Clonazepam 0.5 mg po BID PRN, Trazodone 100 mg po qhs and Mirtazapine 45 mg po at bedtime Pt reports she has agoraphobia and cannot attend Jury Duty She is requesting a letter that due to the fact that she does not speak serbian and has a psychiatric condition that causes her extreme anxiety when she is surrounded by people, she cannot attend Jury duty Assessment & Plan (12/02/2022 8:44 AM EST): Patient under the care of psychiatrist at [place] Currently on a regimen of: Clonazepam 0.5 [...] monitoring and current therapy - [facility] to check on status of Freestyle richard [...] Encounters Date Type Department Care Team Description 10/19/2025 Orders Only GENERIC EXTERNAL DATA DEPARTMENT Provider, Generic External Data 10/10/2025 Telephone [facility] [place] [address] Renan Lawson MD 10/01/2025 Refill [facility] [place] [address] Renan Lawson MD Diabetes mellitus type 2 with neurological manifestations (HCC) 09/29/2025 Telephone [facility] [address] [place] [address] Ashtyn Dill NP Status Check 09/26/2025 1:30 PM EST Office Visit [facility] [place] [address] Ashtyn Dill NP Sciatica of left side (Primary Dx) 09/26/2025 Travel 09/25/2025 Refill [facility] [address] [place] [address] Renan Lawson MD Fibromyalgia 09/25/2025 Travel 09/25/2025 Telephone [facility] [place] [address] Renan Lawson MD ER Follow-up 09/24/2025 Refill [facility] [place] [address] Renan Lawson MD Diabetes mellitus type 2 with neurological manifestations (HCC) 08/28/2025 Refill [facility] [address] [place] [address] Renan Lawson MD Fibromyalgia 08/09/2025 Telephone [facility] [place] [address] Renan Lawson MD chart prep 07/27/2025 Orders Only [facility] [place] [address] Renan Lawson MD 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) (Primary Dx) 07/25/2025 Telephone [facility] [place] [address] Renan Lawson MD from Last 3 Months [...] Description 11/13/2025 1:00 PM EST Medication Management [facility] [address] [place] [address] Richelle Albarado, PharmD [address] [place] [address] Health Maintenance Due Date Last Done Comments [...] has chronic kidney disease No Alli Ted Patient has chronic kidney disease Care Plan [...] Weekly blood pressure task No Nathan Stephanie Weekly blood pressure task Care Plan Weekly blood pressure task No Evans, Stephanie Patient has chronic kidney disease Care Plan Patient has chronic kidney disease No Evasn, Stephanie Patient has chronic kidney disease Care Plan Patient has chronic kidney disease No Nathan Stephanie Procedures Procedure Name Priority Date/Time Associated Diagnosis Comments SED RATE BY MODIFIED WESTERGREN Routine 10/19/2025 1:44 PM EST C-REACTIVE PROTEIN Routine 10/19/2025 1: 44 PM EST POCT GLYCATED HEMOGLOBIN, TOTAL Routine 09/25/2025 2:39 [...] Relevant to Health Maintenance Results * (ABNORMAL) Sed Rate by Modified Westergren (10/19/2025 1:44 PM EST) Erythrocyte Sedimentation Rate 38(H) 1 - 30 MM/HR [facility] Comment:Patients with polycy themia and many hemoglobin abnormalitiesmay have depressed sed rates whereas patients with anemiamay have elevated sed rates. 10/19/2025 1:44 PM EST 10/19/2025 1:44 PM EST Generic External Data Provider LAB BLOOD ORDERAB LES Final Result Performing Organization Address [facility]/ZIP Co de Phone Number [facility] [address] [place] [phone] * C-reactive Protein (10/19/2025 1:44 PM EST) Pathologist [facility] C Reactive Protein 0.16 < or = 0.50 mg/dL [facility] 10/19/2025 1:44 PM EST 10/19/2025 1:44 PM EST [facility] External Data Provider LAB BLOOD ORDERAB LES Final Result Performing Organization Address [facility] Co de Phone Number [facility] [address] [place] [phone] * (ABNORMAL) POCT A1c (09/25/2025 2:39 PM EST) Pathologist [facility] Hemoglobin A1C 6.3(A) 4.0 - 5.7 % QC Media Lot # [id number] Lot# Expiration Date [id number] Blood 09/25/2025 2:39 PM EST Krys Talbot MD POINT OF CARE TEST ENTER/ED IT ORDERABLES Final Result * BI Mammogram Screening Tomosynthesis Bilateral (02/24/2025 1:53 PM EDT) Anatomical Region Laterality Modality Breast Bilateral Mammography 02/24/2025 1:53 PM EDT Narrative 03/05/2025 9:42 AM EDT [facility] [address] [place] [address] Mammography Report Signed Patient: Naa Pedersen MR#: [id number] : 1955 Acct:[id number] Age/Sex: 69 / F ADM Date: 02/24/25 Loc: HO.MAMMO Attending Dr: Renan Cabral MD Ordering Physician: Renan Cabral MD Resu lts: 1Negative Date of Service: 02/24/25 Follow Up: 1 Year From Orig inal Mammogram Procedure(s): MM tomosynthesis screening BI Accession Number(s): [id number] cc: Renan Cabral MD EXAMINATION: MM SCREENING [...] 03/05/25 0940 DD/ 1353 TD/TT: 02/24/25 1403 Automobile Accessories Installer: Procedure Note Donotuseinterpreter, Image - 04/27/2025 [facility] [address] [place] [address] Mammography Report Signed Patient: Naa Pedersen EMR#: [id number] : 6Acct:[id number] Age/Sex: 69 / FADM Date: 02/24/25 Loc: HO.MAMMO Attending Dr: Renan Cabral MD Ordering Physician: Renan Cabral MDResu lts: 1Negative Date of Service: 02/24/25Follow Up: 1 Year From Orig inal Mammogram Procedure(s): MM tomosynthesis screening BI Accession Number(s): [id number] cc: Renan Cabral MD EXAMINATION: MM SCREENING [...] 03/05/25 0940 DD/ 1353 TD/TT: 02/24/25 1403 Automobile Accessories Installer: us Renan Aparicio MD IMG BI PROCEDURES Robert genia Result - Final * Hepatitis C Ab (01/12/2025 2:04 PM EST) Hepatitis C Antibody Nonreactive Nonreactive [facility] Comment:Antibodies to HCV no t detected; does not exclude early acuteHCV infection. 01/12/2025 2:04 PM EST 01/12/2025 2:04 PM EST Generic External Data Provider LAB BLOOD ORDERAB LES Final Result Performing Organization Address [facility] Co de Phone Number [facility] [address] [place] [phone] * (ABNORMAL) Lipid Panel, Standard (01/12/2025 2:04 PM EST) Triglycerides 271(H) <150 mg/dL [facility] Comment:Desirable Triglyceri de: less than 150 mg/dLBorderline High Triglyceride 150-199 mg/dLHigh Triglyceride: 200-499 mg/dLVery High Triglyceride: greater than or equal to 5OO mg/dL Cholesterol 270(H) <200 mg/dL [facility] Comment:Desirable Cholestero l: less than 200 mg/dLBorderline High Cholesterol: 200-239 mg/dLHigh Cholesterol: greater than 239 mg/dL LDL Cholesterol Calculated 173(H) <100 mg/dL [facility] Comment:Desirable LDL: less than 100 mg/dLNear Optimal/Above Optimal LDL: 110- 129 mg/dLBorderline High LDL: 130-159 mg/dLHigh LDL: 160-189 mg/dLVery High LDL: greater than or equal to 190 mg/dL HDL Cholesterol 43 >40 mg/dL [facility] Comment:Desirable HDL: great er than 40 mg/dL Note: This HDL assay may give artificially low results in patients with liver disease. 01/12/2025 2:04 PM EST 01/12/2025 2:04 PM EST us Generic External Data Provider LAB BLOOD ORDERAB LES Final Result Performing Organization Address [facility]/ZIP Co de Phone Number [facility] [address] [place] [phone] * ALBUMIN, RANDOM URINE W/CREATININE (12/19/2021 8:51 AM EST) Microalbumin Urine 3.1 See Note: mg/dL [facility] Comment: Reference Range: Reference Range [...] Creatinine, Urine 108 20 - 275 mg/dL [facility] 12/19/2021 8:51 AM EST us Renan Aparicio MD LAB URINE ORDERABLES Final Result Performing Organization Address City/State/[facility] Co de Phone Number [facility] [address] from Last 3 Months or Most [...] Patient has chronic kidney disease 10/10/2025 Insurance [facility] STANDARD [place] [phone] Care Teams Telephone Operator Receptionist Relationship Specialty Start Date End Date Renan Lawson MD [address] [place] [address] PCP - General Internal Medicine 12/10/21 Richelle Albarado, KyD [address] [place] [phone] Pharmacist Internal Medicine 10/25/24
== END 2025-10-19 12:57 | disposition home or self-care (01) ==
LOC: HO.LAB 12:56
PROVIDERS: PCP Internal Medicine; Visit Provider Registered Nurse
DX: G43.709 Chronic migraine without aura, not intractable, without status migrainosus (principal); M79.7 Fibromyalgia; Z79.899 Other long term (current) drug therapy
CPT/HCPCS: 36415; 85652; 86140; 99212

== ENCOUNTER 2025-10-19 12:56 | Outpatient (AMB) | payer MEDICARE, MEDICAID, SELFPAY ==
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
== END 2025-10-19 13:30 | disposition home or self-care (01) ==
LOC: HO.HSM 12:57
PROVIDERS: PCP Internal Medicine; Visit Provider Registered Nurse
DX: G43.709 Chronic migraine without aura, not intractable, without status migrainosus (principal); M79.7 Fibromyalgia
CPT/HCPCS: 99214

== ENCOUNTER 2025-10-23 13:22 | Outpatient (AMB) | payer MEDICARE, MEDICAID, SELFPAY ==
--- NOTE | 2025-10-23 13:41 | A.OFFVIS_ITS ---
Intake Visit Reasons: INJ- LT knee Durolane injection Intake Note: Naa is a 69 year old female who presents today for a left knee Durolane injection. Premium Note Interest Calculator Clerk Required: Yes Premium Note Interest Calculator Clerk Services: Premium Note Interest Calculator Clerk Offered & Declined Accompanied by: Daughter Allergies bee pollen (BEE STINGS) Allergy (Unknown, Verified 10/23/25 13:43) ANAPHYLAXIS morphine (MORPHINE) Allergy (Unknown, Verified 10/23/25 13:43) ITCHING Medication List - Last Reconciled 10/23/25 by Constantin Milian PA-C albuterol sulfate 2.5 mg (3 mL) inhalation Q4H PRN 30 days albuterol sulfate 90 mcg/actuation (Ventolin HFA) 2 puffs PO QID PRN alirocumab (Praluent Pen) 75 mg subcut Q2W amitriptyline 200 mg (2 x 100 mg) PO BEDTIME 90 days amlodipine 10 mg PO DAILY 90 days ascorbic acid (vitamin C) 1 g PO DAILY 90 days aspirin 81 mg PO DAILY atorvastatin 80 mg PO DAILY benzonatate 200 mg PO BID PRN 30 days blood sugar diagnostic (FreeStyle Lite Strips) Test four times a day or as directed. blood-glucose meter (FreeStyle Lite Meter kit) As Directed ykhqpbjedx-yqhkqegrtgppc-jecj 50-325-40 mg 1 tab PO TID PRN cetirizine 10 mg PO BEDTIME cholecalciferol (vitamin D3) 50 mcg PO DAILY clonazepam 1 mg PO BID PRN cyanocobalamin (vitamin B-12) 1,000 mcg PO DAILY cyclobenzaprine 5 mg PO TID PRN 7 days dulaglutide (Trulicity) mg subcut epinephrine 3 mg IM DIRECTED estradiol 0.01%(0.1mg/gram) (Estrace) 1 g vaginal 3XW 90 days ezetimibe (Zetia) 10 mg PO DAILY 90 days fluticasone propionate 50 mcg/actuation 2 sprays intranasal DAILY insulin lispro (Humalog KwikPen (U-100) Insulin) 1 sliding scale dose subcut QIDACHS lancets (FreeStyle Lancets) Test four times a day or as directed. lancets (TRUEplus Lancets) As directed lisinopril 10 mg PO DAILY metformin ER 1,000 mg PO QAM methenamine hippurate 1 g PO DAILY 90 days metoclopramide HCl 5 mg PO TID mirtazapine 45 mg PO BEDTIME nebulizers As directed nitroglycerin 0.4 mg sublingual Q5M PRN omeprazole 40 mg PO BID oxycodone 5 mg PO BID PRN pen needle, diabetic Use four times a day or as directed. prednisone mg PO pregabalin 200 mg PO BID sennosides (senna) 17.2 mg (2 x 8.6 mg) PO BEDTIME 30 days simethicone 180 mg PO QID PRN sumatriptan succinate take 1 tab at onset of headache; if no relief, may repeat 1 tab after at least 2 hrs; max = 2 tabs/24 hrs PO 30 days tizanidine 2 mg PO BEDTIME topiramate 200 mg (2 x 100 mg) PO BID 90 days trazodone 100 mg PO BEDTIME venlafaxine ER 37.5 mg PO DAILY HPI HPI INJ- LT knee Durolane injection: Details: 69 yo female presents to the office today #1 durolane injtaction left knee. [facility] Medical History EDWIN (obstructive sleep apnea) Periumbilical abdominal pain EDWIN on CPAP Chronic restrictive lung disease Chronic allergic rhinitis Asthma Other and unspecified hyperlipidemia Essential hypertension Type 2 diabetes mellitus with unspecified complications Atherosclerotic cardiovascular disease Surgical History History of esophagogastroduodenoscopy (EGD) Hx of colonoscopy Family History Mother HTN (hypertension) Heart disease Asthma Maternal Aunt Breast cancer Maternal Aunt Tumor Maternal Aunt Cancer Social History Household Members: Spouse and Family Household Members Other:: 4 household members Housing: Apartment Do you presently have visiting nurse or other home services: No Alcohol intake: never Patient Tobacco Use Status: Never used Tobacco service: No Review of Systems Const All systems reviewed & are unremarkable except as noted in HPI and below Physical Exam Extrem Other: Left knees are to inspection she has diffuse medial and lateral joint line tenderness. full range of motion crepitus. Neurovascularly intact. Office Procedures AMB Joint Injection/Aspiration Joint Injection/Aspiration Primary Site: Left Knee Prep: site was prepped using aseptic technique, ethochloride spray was applied and injection warnings given Injected: Durolane (#1 ) Approach Used: anterolateral Procedure: The patient tolerated the procedure well Coding 87310 - Glenohumeral/Tronchanteric Bursa/Intraarticular Procedure code (CPT) selection complete Results Reviewed Results Reviewed: MR knee LT wo con IMPRESSION: * Abnormal findings in the medial meniscal posterior horn and posterior root, could reflect evolution of the previously noted tear versus recurrent age-indeterminate tearing.. Degenerative fraying/ill-defined tear of the body. * Degenerative fraying/tear of the posterior root/central posterior horn of the lateral meniscus. * ACL mucoid degeneration * Tricompartment arthritis *Small effusion, possible mild synovitis/debris. Assessment & Plan Assessment & Plan (1) Patellofemoral arthritis of left knee: Code(s): M17.12 - Unilateral primary osteoarthritis, left knee Category: Medical Plan: Plan was to proceed with gel injection today. #1 Durolane Injection performed today which the patient tolerated well. She will rest ice and use anti-inflammatories as needed for the next several days. I will see her back prn Coding Level of Care Code Procedure Only Diagnoses Patellofemoral arthritis of left knee M17.12 CPT Codes Coding - Joint 7: 68990 - Glenohumeral/Tronchanteric Bursa/Intraarticular ([id number])
--- OUTSIDE RECORDS SUMMARY | 2025-10-23 19:19 | XMS_ITS | Encounter Summary ---
Author Organization [employer] Address [address] [facility] [address] [facility] [address] 7[address] [place] [address] Care Team Providers Care Gate Person Name Role Phone Renan Lawson MD Primary Care Provide r Edilberto Barahona PharmD Unavailable [phone] Richelle Albarado PharmD Unavailable [phone] Encounter Details Date Type Department Care Team (Late st Contact Info) Description 01/13/2023 Abstract [facility] MEDICINE [address] [place], [place] [phone] Renan Lawson MD [address] [place], [place] [phone] Social History Tobacco Use Types Packs/Day Years [...] 11/13/2025 1:00 PM EST Medication Management [facility] [address] [place] [address] Richelle Albarado, Toni [address] [place] [address] documented as of this encounter Visit Diagnoses Not on filedocumented in this encounter Additional Health Concerns Assessment Noted Time PHQ-9 Depression Total Score: 0 12/02/19 10:15 AM EST documented as of this encounter Care Teams Gate Person Relationship Specialty Start Date End Date Renan Lawson MD [address] [place] [phone] PCP - General Internal Medicine 12/10/21 Edilberto Barahona PharmD [address] [place] [phone] Pharmacist Internal Medicine 07/14/23 10/24/24 Richelle Albarado PharmD [address] [place] [phone] Pharmacist Internal Medicine 10/25/24 documented as of this encounter
--- OUTSIDE RECORDS SUMMARY | 2025-10-23 19:19 | XMS_ITS | Encounter Summary ---
Author Organization [employer] Address [address] [facility] 7t [place] [address] Care Team Providers Care Communication Equipment Mechanic Name Role Phone Renan Lawson MD Primary Care Provide r Edilberto Barahona PharmD Unavailable [phone] Richelle Albarado PharmD Unavailable [phone] Encounter Details Date Type Department Care Team (Late Contact Info) Description 10/22/2022 Orders Only [facility] [address] [place] [address] Denise Leyva LPN Social History Tobacco Use [...] EST Medication Management [facility] [address] [place] [address] Richelle Albarado PharmD [address] [place] [address] documented as of this encounter Visit Diagnoses Not on filedocumented in this encounter Care Teams Communication Equipment Mechanic Relationship Specialty Start Date End Date Renan Lawson MD [address] [place] [address] PCP - General Internal Medicine 12/10/21 Edilberto Barahona, KyD [address] [place] [address] Pharmacist Internal Medicine 07/14/23 10/24/24 Richelle Albarado PharmD [address] [place] [address] Pharmacist Internal Medicine 10/25/24 documented as of this encounter
--- OUTSIDE RECORDS SUMMARY | 2025-10-23 19:19 | XMS_ITS | Encounter Summary ---
Author Organization [employer] Address [address] [facility] [address] [place] [address] Care Team Providers Care Wildlife Ecologist Name Role Phone Renan Lawson MD Primary Care Provide r Edilberto Barahona PharmD Unavailable [phone] Richelle Albarado PharmD Unavailable [phone] Encounter Details Date Type Department Care Team (Late st Contact Info) Description 12/17/2022 Abstract [facility] MEDICINE [address] [place], [place] [phone] Renan Lawson MD [address] [place], [place] [phone] Social History Tobacco Use Types Packs/Day Years [...] Description 11/13/2025 1:00 PM EST Medication Management [facility] [address] [place] [address] Richelle Albarado, Toni [address] [place] [address] documented as of this encounter Visit Diagnoses Not on filedocumented in this encounter Additional Health Concerns Assessment Noted Time PHQ-9 Depression Total Score: 0 12/02/19 10:15 AM EST documented as of this encounter Care Teams Wildlife Ecologist Relationship Specialty Start Date End Date Renan Lawson MD [address] [place] [phone] PCP - General Internal Medicine 12/10/21 Edilberto Barahona PharmD [address] [place] [phone] Pharmacist Internal Medicine 07/14/23 10/24/24 Richelle Albarado PharmD [address] [place] [address] Pharmacist Internal Medicine 10/25/24 documented as of this encounter
--- OUTSIDE RECORDS SUMMARY | 2025-10-23 19:19 | XMS_ITS | Encounter Summary ---
Author Organization [facility] Address [address] 7[address] [place] [address] Care Team Providers Care Embalmer Apprentice Name Role Phone Renan Lawson MD Primary Care Provide r Edilberto Barahona PharmD Unavailable [phone] Richelle Albarado PharmD Unavailable [phone] Encounter Details Date Type Department Care Team ([facility] Contact Info) Description 11/14/2022 Telephone [facility] MEDICINE [address] [place], [place] [phone] Renan Lawson MD [address] [place] [address] [phone] Social History Tobacco Use Types Packs/Day Years [...] Upcoming Encounters Date Type Department Care Team ([facility] Contact Info) Description 11/13/2025 1:00 PM EST Medication Management [facility] MED[facility]INE [address] [place] [address] [phone] Richelle Albarado PharmD [address] [place] [address] documented as of this encounter Visit Diagnoses Not on filedocumented in this encounter Care Teams Embalmer Apprentice Relationship Specialty Start Date End Date Renan Lawson MD [address] [place] [phone] PCP - General Internal Medicine 12/10/21 Edilberto Barahona PharmD [address] [place] [phone] Pharmacist Internal Medicine 07/14/23 10/24/24 Richelle Albarado PharmD [address] [place] [phone] Pharmacist Internal Medicine 10/25/24 documented as of this encounter
--- OUTSIDE RECORDS SUMMARY | 2025-10-23 19:19 | XMS_ITS | Encounter Summary ---
Author Organization [employer] Address [address] 7[address] [place] [address] Care Team Providers Care Personnel Associate Name Role Phone Renan Lawson MD Primary Care Provide r Edilberto Barahona PharmD Unavailable [phone] Richelle Albarado PharmD Unavailable [phone] Reason for Visit * Reason Comments Med Refill Encounter Details Date Type Department Care Team ([facility] st Contact Info) Description 02/09/2024 Refill [facility] MEDICINE [address] [place], [place] [phone] Renan Lawson MD [address] [place], [place] [phone] Fibromyalgia Social History Tobacco Use Types Packs/Day [...] 1:00 PM EST Medication Management [facility] MEDICINE [address] [place] [address] Richelle Albarado PharmD [address] [place] [address] documented as of this encounter Goals Goal [...] documented as of this encounter Care Teams Personnel Associate Relationship Specialty Start Date End Date Renan Lawson MD [address] [place] [address] PCP - General Internal Medicine 12/10/21 Edilberto Barahona PharmD [address] [place] [phone] Pharmacist Internal Medicine 07/14/23 10/24/24 Richelle Albarado PharmD [address] [place] [address] Pharmacist Internal Medicine 10/25/24 documented as of this encounter
--- OUTSIDE RECORDS SUMMARY | 2025-10-23 19:19 | XMS_ITS | Encounter Summary ---
Author Organization [employer] Address [address] [place] [address] Care Team Providers Care Furniture Polisher Name Role Phone Renan Lawson MD Primary Care Provide r Richelle Albarado PharmD Unavailable [phone] Encounter Details Date Type Department Care Team ([facility] Contact Info) Description 10/19/2025 Orders Only [...] t he electric, gas, oil or water [employer] threatened to shut off services in your [...] Description 11/13/2025 1:00 PM EST Medication Management [facility] MEDICINE [address] [place], [place] [phone] Richelle Albarado PharmD [address] [place], [place] [phone] documented as of this encounter Goals Goal [...] Weekly blood pressure task No Ashtyn Dill COLOR TECHNICIAN Weekly blood pressure task Care Plan Weekly blood pressure task No Ashtyn Dill COLOR TECHNICIAN Patient has chronic kidney disease Care Plan Patient has chronic kidney disease No Ashtyn Dill, COLOR TECHNICIAN Patient has chronic kidney disease Care Plan Patient has chronic kidney disease No Ashtyn Dill COLOR TECHNICIAN Weekly blood pressure task Care Plan Weekly [...] Sedimentation Rate 38(H) 1 - 30 MM/HR [facility] Comment:Patients with polycy themia and many hemoglobin abnormalitiesmay have depressed sed rates whereas patients with anemiamay have elevated sed rates. 10/19/2025 1:44 PM EST 10/19/2025 1:44 PM EST us Generic External Data Provider LAB BLOOD ORDERAB LES Final Result Performing Organization Address City/[facility] Co de Phone Number [facility] [address] [place] [phone] * C-reactive Protein (10/19/2025 1:44 PM EST) C Reactive Protein 0.16 < or = 0.50 mg/dL [facility] 10/19/2025 1:44 PM EST 10/19/2025 1:44 PM EST Generic External Data Provider LAB BLOOD ORDERAB LES Final Result Performing Organization Address City/[facility] Co de Phone Number [facility] [address] [place] [phone] documented in this encounter Visit Diagnoses [...] documented as of this encounter Care Teams Furniture Polisher Relationship Specialty Start Date End Date Renan Lawson MD [address] [place] [address] PCP - General Internal Medicine 12/10/21 Richelle Albarado PharmD [address] [place] [address] Pharmacist Internal Medicine 10/25/24 documented as of this encounter
--- OUTSIDE RECORDS SUMMARY | 2025-10-23 19:20 | XMS_ITS | Encounter Summary ---
Author Organization [employer] Address [address] 7t [place] [address] Care Team Providers Care Gasket Notcher Name Role Phone Renan Lawson MD Primary Care Provide r Edilberto Barahona PharmD Unavailable [phone] Richelle Albarado PharmD Unavailable [phone] Reason for Visit * Reason Onset Date Comments Appointment Request 08/26/2023 Encounter Details Date Type Department Care Team ([facility] Contact Info) Description 08/26/2023 Telephone [facility] MEDICINE [address] [place], [place] [phone] Renan Lawson MD [address] [place], [place] [phone] Appointment Request Social History Tobacco Use Types [...] Description 11/13/2025 1:00 PM EST Medication Management [facility] MEDICINE [address] [place] [address] Richelle Albarado PharmD [address] [place] [address] documented as of this encounter Goals Goal [...] documented as of this encounter Care Teams Gasket Notcher Relationship Specialty Start Date End Date Renan Lawson MD [address] [place] [phone] PCP - General Internal Medicine 12/10/21 Edilberto Barahona PharmD [address] [place] [address] Pharmacist Internal Medicine 07/14/23 10/24/24 Richelle Albarado PharmD [address] [place] [phone] Pharmacist Internal Medicine 10/25/24 documented as of this encounter
--- OUTSIDE RECORDS SUMMARY | 2025-10-23 19:20 | XMS_ITS | Clinical Summary ---
Author Organization [employer] Address [address] [facility] 7t [place] [address] Care Team Providers Care Director Ehs Name Role Phone Renan Lawson MD Primary Care Provide r Richelle Albarado PharmD Unavailable [phone] Allergies Active Allergy Reactions Criticality Noted Date [...] 024 Active Blood Glucose Monitoring Suppl (FreeStyle [place] Lite) w/Device kit USE DIRECTED TO TEST [...] 100 each 11 024 Active Continuous Glucose Bellows Filler (FreeStyle Richard 3 Imnaha) deviceIndications :Diabetes mellitus type 2 with neurological [...] Pt was seen by an orthopaedist at [facility]. [facility] health care 12/02/2022 Overview (09/07/2023): Continues [...] acute finding. Pt was seen by her [facility] Dr Freeman and is currently wearing an [...] atorvastatin, Zetia and Praluent. Last seen by [facility] Dr Freeman 03/15/2025 Assessment & Plan (09/29/2024 [...] atorvastatin, Zetia and Praluent. Last seen by [facility] Dr Freeman 07/2024 Assessment & Plan (09/15/2023 [...] Patient under the care of [facility] Tightening Machine Operator, last seen 04/11/2025 Currently on [...] Patient under the care of [facility] Tightening Machine Operator, last seen 07/29/2024 Currently on Ventolin , uses albuterol nebulizarions as well. Dr Carson stopped her other inhalers Assessment & Plan (09/15/2023 3:23 PM EST): Patient under the care of [facility] Tightening Machine Operator, last seen April Currently on Ventolin and Breztri Aerosphere , uses albuterol nebulizarions as well Assessment & Plan (12/02/2022 8:52 AM EST): Patient under the care of [facility]ightening Machine Operator, last seen January 2022 Currently [...] PM EDT): Pt under the [place] Single Needle Tufting Machine Operator [place] [facility] [place] last seen 03/29/2025 Currently on a regimen of Dexilant 60 mg po daily and Omeprazole 40 mg po daily Assessment & Plan (12/29/2023 1:11 PM EST): Pt under the care of Single Needle Tufting Machine Operator [place] [facility] [place] , last seen 10/2023 Currently on a regimen of Dexilant 60 mg po daily and Omeprazole 40 mg po daily Assessment & Plan (12/02/2022 8:52 AM EST): Pt under the care of Single Needle Tufting Machine Operator at [facility] [...] (05/04/2023 3:40 PM EDT): - Freestyle Richard Imnaha and Sensor Ordered - A1c is not [...] found on MRI of lower back at [facility] in 2008, unchanged 2009. Sl enlarged 2013. [...] [place] Assessment & Plan (05/11/2025 12:55 PM [...] followed by Dr. Jarod Angelo ([address] ). She is now under the care [...] is being followed by Dr. Jarod Angelo ([address] [facility] ). She is now under the [...] request records from most recent MRI at [facility] pt is being followed by Dr. Jarod Angelo ([address] [place] [address] ). Depressive disorder 11/09/1959 Assessment & Plan (12/23/2022 2:42 PM EST): Patient under the care of psychiatrist at [facility] Currently on a regimen of: Clonazepam 0.5 mg po BID PRN, Trazodone 100 mg po qhs and Mirtazapine 45 mg po at bedtime Pt reports she has agoraphobia and cannot attend Jury Duty She is requesting a letter that due to the fact that she does not speak divehi and has a psychiatric condition that causes her extreme anxiety when she is surrounded by people, she cannot attend Jury duty Assessment & Plan (12/02/2022 8:44 AM EST): Patient under the care of psychiatrist at [facility] Currently on a regimen of: Clonazepam 0.5 [...] home monitoring and current therapy - [facility] to check on status of Freestyle richard [...] DEPARTMENT Provider, Generic External Data 10/10/[address] [facility] [place] [address] Renan Lawson MD 10/01/[address] [facility] [place] [address] Renan Lawson MD Diabetes mellitus type 2 with neurological manifestations (HCC) 09/29/[address] [facility] [address] [place] [address] Ashtyn Dill NP Status Check 09/26/2025 1:30 PM EST Office [facility] [place] [address] Ashtyn Dill NP Sciatica of left side (Primary Dx) 09/26/2025 Travel 09/25/[address] [facility] [address] [place] [address] Renan Lawson MD Fibromyalgia 09/25/2025 Travel 09/25/[address] [facility] [place] [address] Renan Lawson MD ER Follow-up 09/24/[address] [facility] [place] [address] Renan Lawson MD Diabetes mellitus type 2 with neurological manifestations (HCC) 08/28/2025 Refill [facility] [address] [place] [address] Renan Lawson MD Fibromyalgia 08/09/[address] [facility] [place] [address] Renan Lawson MD chart prep 07/27/[address] [facility] [place] [address] Renan Lawson MD 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) (Primary Dx) 07/25/[address] [facility] [place] [address] Renan Lawson MD from Last 3 Months [...] Description 11/13/2025 1:00 PM EST Medication Management [facility] [address] [place] [address] iRchelle Albarado, PharmD [address] [place] [address] Health Maintenance Due Date Last Done Comments [...] has chronic kidney disease No Evans, Stephanie Patient has chronic kidney [...] Sedimentation Rate 38(H) 1 - 30 MM/HR [facility] Comment:Patients with polycy themia and many hemoglobin abnormalitiesmay have depressed sed rates whereas patients with anemiamay have elevated sed rates. 10/19/2025 1:44 PM EST 10/19/2025 1:44 PM EST Generic External Data Provider LAB BLOOD ORDERAB LES Final Result Performing Organization Address [facility]ZIP Co de Phone Number [facility] [address] [place] [phone] * C-reactive Protein (10/19/2025 1:44 PM EST) Pathologist [facility] C Reactive Protein 0.16 < or = 0.50 mg/dL [facility] 10/19/2025 1:44 PM EST 10/19/2025 1:44 PM EST Gem External Data Provider LAB BLOOD ORDERAB LES Final Result Performing Organization Address [facility] Co de Phone Number [facility] [address] [place] [phone] * (ABNORMAL) POCT A1c (09/25/2025 2:39 PM EST) Pathologist [facility] Hemoglobin A1C 6.3(A) 4.0 - 5.7 % QC Media Lot # [id number] Lot# Expiration Date [id number] Blood 09/25/2025 2:39 PM EST Krys Talbot MD POINT OF CARE TEST ENTER/ED IT ORDERABLES Final Result * BI Mammogram Screening Tomosynthesis Bilateral (02/24/2025 1:53 PM EDT) Anatomical Region Laterality Modality Breast Bilateral Mammography 02/24/2025 1:53 PM EDT Narrative 03/05/2025 9:42 AM EDT [facility] [address] [place] [address] Mammography Report Signed Patient: Naa Pedersen MR#: [id number] : 1955 Acct:[id number] Age/Sex: 69 / F ADM Date: 02/24/25 Loc: HO.MAMMO Attending Dr: Renan Cabral MD Ordering Physician: Renan Cabral MD Resu lts: 1Negative Date of Service: 02/24/25 Follow Up: 1 Year From Orig inal Mammogram Procedure(s): MM tomosynthesis screening BI Accession Number(s): [id number] cc: Renan Cabral MD EXAMINATION: MM SCREENING [...] 03/05/25 0940 DD/ 1353 TD/TT: 02/24/25 1403 Metal Hardener: Procedure Note Donotuseinterpreter, Image - 04/27/2025 [facility] [address] [place] [address] Mammography Report Signed Patient: Naa Pedersen EMR#: [id number] : 6Acct:[id number] Age/Sex: 69 / FADM Date: 02/24/25 Loc: HO.MAMMO Attending Dr: Renan Cabral MD Ordering Physician: Renan Cabral MDResu lts: 1Negative Date of Service: 02/24/25Follow Up: 1 Year From Orig inal Mammogram Procedure(s): MM tomosynthesis screening BI Accession Number(s): [id number] cc: Renan Cabral MD EXAMINATION: MM SCREENING [...] 03/05/25 0940 DD/ 1353 TD/TT: 02/24/25 1403 Metal Hardener: us Renan Aparicio MD IMG BI PROCEDURES Robert genia Result - Final * Hepatitis C Ab (01/12/2025 2:04 PM EST) Hepatitis C Antibody Nonreactive Nonreactive [facility] Comment:Antibodies to HCV no t detected; does not exclude early acuteHCV infection. 01/12/2025 2:04 PM EST 01/12/2025 2:04 PM EST Generic External Data Provider LAB BLOOD ORDERAB LES Final Result Performing Organization Address [facility] Co de Phone Number [facility] [address] [place] [phone] * (ABNORMAL) Lipid Panel, Standard (01/12/2025 2:04 PM EST) Triglycerides 271(H) <150 mg/dL [facility] Comment:Desirable Triglyceri de: less than 150 mg/dLBorderline High Triglyceride 150-199 mg/dLHigh Triglyceride: 200-499 mg/dLVery High Triglyceride: greater than or equal to 5OO mg/dL Cholesterol 270(H) <200 mg/dL [facility] Comment:Desirable Cholestero l: less than 200 mg/dLBorderline High Cholesterol: 200-239 mg/dLHigh Cholesterol: greater than 239 mg/dL LDL Cholesterol Calculated 173(H) <100 mg/dL [facility] Comment:Desirable LDL: less than 100 mg/dLNear Optimal/Above Optimal LDL: 110- 129 mg/dLBorderline High LDL: 130-159 mg/dLHigh LDL: 160-189 mg/dLVery High LDL: greater than or equal to 190 mg/dL HDL Cholesterol 43 >40 mg/dL [facility] Comment:Desirable HDL: great er than 40 mg/dL Note: This HDL assay may give artificially low results in patients with liver disease. 01/12/2025 2:04 PM EST 01/12/2025 2:04 PM EST us Generic External Data Provider LAB BLOOD ORDERAB LES Final Result Performing Organization Address [facility]/ZIP Co de Phone Number [facility] [address] [place] [phone] * ALBUMIN, RANDOM URINE W/CREATININE (12/19/2021 8:51 AM EST) Microalbumin Urine 3.1 See Note: mg/dL [facility] Comment: Reference Range: Reference Range [...] Creatinine, Urine 108 20 - 275 mg/dL [facility] 12/19/2021 8:51 AM EST us Renan Aparicio MD LAB URINE ORDERABLES Final Result Performing Organization Address City/State/[facility] Co de Phone Number [facility] [address] from Last 3 Months or Most [...] Patient has chronic kidney disease 10/10/2025 Insurance [facility] STANDARD [place] [phone] Care Teams Director Ehs Relationship Specialty Start Date End Date Renan Lawson MD [address] [place] [address] PCP - General Internal Medicine 12/10/21 Richelle Albarado, KyD [address] [place] [phone] Pharmacist Internal Medicine 10/25/24
--- OUTSIDE RECORDS SUMMARY | 2025-10-23 19:20 | XMS_ITS | Patient Health Record ---
Author Organization [facility] Address [address] [place] [address] Care Team Providers Care Patient Support Associate Name Role Phone Deandre Aparicio MD, Renan Primary Care Provide r Unavailable Eric Emmanuel Unavailable [phone] Reason For Referral No Information Plan Of Treatment No Information Insurance Providers Payer Name Payer Address Payer Phone Subscriber Number Group Number Insured Name Patient Relationship to Insured Coverage Start Date Coverage End Date MEDICARE OF [place] [address] [place] [id number] [id number] [employer] Self - patient is the insured MEDICAID OF [facility] [address] [place] [address] [id number] [employer] Self - patient is the insured
--- OUTSIDE RECORDS SUMMARY | 2025-10-23 19:20 | XMS_ITS | Data Portability ---
Author Organization [place] [facility], Allergy Address [address] [address] Assessment Encounter Date Assessment Date Assessment LastModified [...] Symptoms: Other: Missed 1 week Dose Notes: [email or web address] Not available 07/29/2024 13:27:27 09/07/2024 09/07/2024 Administered [...] Organization Details Recorded Time Itching of skin 922022890 Active 2018 Pruritus, unspecifi ed; Note: Date Diagnosed : 02/08/2019 3:52 PM (L29.9) Not Available [facility] hospital 4 02:22:18 Nasal congestion 22717861 Active 2018 Nasal congestio n; Note: Date Diagnosed : 02/08/2019 3:56 PM (R09.81) Not Available Critical access hospital 4 02:21:46 Gastro-eso phageal reflux disease with esophagiti s 376871938 Active 2018 Gastro-es ophageal reflux disease with esophagit is; Note: Date Diagnosed : 04/07/2019 1:10 PM (K21.0) Not Available Critical access hospital 4 02:21:39 Asthenia 88612806 Active 2018 Asthenia NOS; Note: Date Diagnosed : 10/10/2019 9:51 AM (R53.1) Not Available Critical access hospital 4 02:21:50 Allergic rhinitis 01533388 Active 2019 [facility] 03/2024 ANDREW ALEJANDRO MD [address] [place] [address], [facility] [place], [address] , [place] - [facility] [place] 13:42:19 Perennial allergic rhinitis 399016256 Active 2023 MECHE BARRINGTON, RMA [address],[place] [address], [place], [address] , [place] - [facility] [place] 13:30:45 Problem Notes None recorded. Procedures Surgical History Date Name Laterality Status Provider Name and Address Organization Details Recorded Time 09/21/20 24 Allergy Immunotherapy Injections completed MECHE BARRINGTON, RMA [address], [place], [address], [facility] - [facility] [place] 09/21/2024 10:54:46 09/07/20 24 Allergy Immunotherapy Injections completed MECHE FERRIS, RMA [address],[place] [address] [place] [address], [phone], [facility] - [facility] [place] 09/07/2024 15:26:03 07/29/20 24 Allergy Immunotherapy Injections completed LESA BRINK A [address],[place] [address] [place] [address], [phone], [facility] - [facility] [place] 07/29/2024 13:27:22 07/21/20 24 Allergy Immunotherapy Injections completed MECHE FERRIS RMA [address],[place] [address] [place] [address], [address], [facility] - [facility] [place] 07/21/2024 10:07:54 07/06/20 24 Allergy Immunotherapy Injections completed IMAN SANTOS RN [address] [facility] [place], [address], [facility] - [facility] [place] 07/06/2024 14:13:42 06/23/20 24 Allergy Immunotherapy Injections completed MECHE FERRIS, RMA [address],[place] [address] [place] [address], [phone], [place] - [facility] [place] 06/23/2024 13:25:45 06/15/20 24 Allergy Immunotherapy Injections completed MECHE MASTERSONC, RMA [address],[place] [address], [place], [address], [place] - [facility] [place] 06/15/2024 14:07:46 05/05/20 24 Allergy Immunotherapy Injections completed MECHE FERRIS, A [address] [place],[address], [place], [address], [facility] - [facility] 05/05/2024 13:06:00 04/28/20 24 Allergy Immunotherapy Injections completed LESA BRINK, A [address] [facility] [place] [address], [place], [address], [facility] - [facility] 04/28/2024 14:05:19 04/20/20 24 Allergy Immunotherapy Injections completed LESA BRINK, [facility] 100 [facility],[place] [address], [place], [address], [facility] - [facility] 04/20/2024 14:27:52 04/08/20 24 Allergy Immunotherapy Injections completed LESA BRINK, [facility] 100 [facility],[address], [address], [facility] - [facility] 04/08/2024 13:04:02 03/30/20 24 Allergy Immunotherapy Injections completed MECHE ALEJA, [facility] 100 [facility],[address], [address], [facility] - [facility] 03/30/2024 13:31:25 Imaging Results None recorded. Procedure Notes None recorded. Medical Equipment None Reported. Allergies Allergen ID Allergen Name Allergen Category Reaction Reaction Severity Criticality Documentation Date Start Date Code Code System Note Provider Name and Address Organization Details Recorded Time 90118 morphine medicatio n other Not available Not available 03/22/2024 7052 RxNorm React ion: unkno wn, unspe cifie d;; Not Available [facility] 00:54:57 Medications Name Sig Start Date Stop Date Status Note LastModified by Organization Details LastModified Time medbox status USE DIRECTED active Not Available Not Available No t Available metformin 500 mg tablet 03/10 completed Medicati on ID: [id number] D uration Value: 30 Brand Name: metformi [...] nebulizat ion 03/10 completed Medicati on ID: [id number] D uration Value: 15 Brand Name: albutero l sulfate Send Method: E-Prescr ibed Sub s Allowed: subs OK Speci al Instruct ion: INHALE 1 VIAL BY NEBULIZA TION EVERY 4 HOURS NEEDED FOR WHEEZING FOR UP TO 30 DAYS. Me dication GenericN meng: albutero l sulfate Not Available Not Available Not Available trazodone 50 mg tablet 03/10 completed Medicati on ID: [id number] D uration Value: 30 Brand Name: trazodon [...] mg tablet 03/10 completed Medicati on ID: [id number] D uration Value: 30 Brand Name: atorvast [...] mg tablet 03/10 completed Medicati on ID: [id number] D uration Value: 30 Brand Name: clonazep [...] mg tablet 03/18 completed Medicati on ID: [id number] D uration Value: 10 Reason: () Brand [...] topical patch 03/10 completed Medicati on ID: 592535 D uration Value: 28 Brand Name: lidocain e Send Method: E-Prescr ibed Sub s Allowed: subs OK Medic ationGen ericName : lidocain e Not Available Not Available Not Available verapamil ER (PM) 300 mg capsule 24hr pellet CT,ext.re lease 03/10 completed Medicati on ID: 365893 D uration Value: 30 Brand Name: verapami l Send Method: E-Prescr ibed Sub s Allowed: subs OK Speci al Instruct ion: TOME EVELIO CAPSULA POR V?A ORAL TODOS LOS D? Med icationG enericNa me: verapami l Not Available Not Available Not Available Advair Diskus 250 mcg-50 mcg/dose powder for inhalatio n active Medicati on ID: 698124 B rand Name: Advair Diskus S end Method: E-Prescr ibed Sub s Allowed: subs OK Medic ationGen ericName : Advair Diskus Not Available Not Available Not Available nitroglyc deonna 0.4 mg sublingua l tablet 03/10 completed Medicati on ID: 103266 B rand Name: nitrogly cerin Se nd Method: E-Prescr ibed Sub s Allowed: subs OK Medic ationGen ericName : nitrogly cerin Not Available Not Available Not Available mirtazapi ne 45 mg tablet TOME EVELIO TABLETA TODOS LOS D AL [employer] E active Not Available Not Available No t Available ammonium lactate 12 % topical cream 03/10 completed Medicati on ID: 268207 D uration Value: 30 Brand Name: ammonium [...] both nostrils 03/10 completed Medicati on ID: 718066 P raquelrirosemarie d By Name: BEST Blackmon [...] mg tablet 03/10 completed Medicati on ID: 295067 D uration Value: 7 Brand Name: oxycodon e Send Method: E-Prescr ibed Sub s Allowed: subs OK Medic ationGen ericName : oxycodon e Not Available Not Available Not Available Vitamin B-12 ER 1,000 mcg tablet,ex tended release 03/10 completed Medicati on ID: 605294 D uration Value: 30 Brand Name: Vitamin [...] extended release 05/31 completed Medicati on ID: 867019 D uration Value: 30 Reason: () Brand [...] mg capsule 03/10 completed Medicati on ID: 236097 D uration Value: 30 Brand Name: Lyrica S end Method: E-Prescr ibed Sub s Allowed: subs OK Medic ationGen ericName : Lyrica Not Available Not Available Not Available morphine active Not Available Not Avai lable Not Available DermOtic Oil 0.01 % ear drops 2 drop 03/10 completed Medicati on ID: 911248 P rescribe d By Name: Andrew Alejandro M.D. Bra nd Name: DermOtic Oil Send Method: E-Prescr ibed Sub s Allowed: subs OK Medic ationGen ericName : DermOtic Oil Not Available Not Available Not Available ProAir HFA 03/10 completed Medicati on ID: 872529 D uration Value: 17 Brand Name: ProAir HFA Send Method: E-Prescr ibed Sub s Allowed: subs OK Speci al Instruct ion: INHALE 2 PUFFS INTO THE LUNGS 4 TIMES DAILY NEEDED FOR WHEEZING OR SHORTNES S OF BREATH. Medicati onGeneri cName: ProAir HFA Not Available Not Available Not Available FreeStyle Blackwater Lite kit USE DIRECTED TO CHECK BLOOD [...] gram oral soln active Medicati on ID: 341487 B rand Name: sodium,p otassium ,mag sulfates Send Method: E-Prescr ibed Sub s Allowed: subs OK Medic ationGen ericName : sodium,p otassium ,mag sulfates Not Available Not Available Not Available Vitamin D3 50 mcg (2,000 unit) capsule 03/10 completed Medicati on ID: 252854 D uration Value: 30 Brand Name: Vitamin [...] for inhalatio n active Medicati on ID: 945666 B rand Name: Breo Ellipta Send Method: [...] ous pen injector active Medicati on ID: 220603 B rand Name: Trulicit y Send Method: [...] Note 1170 MECHE MASTERSON, RMA Allergy 100 [facility] 100 [facility] [place] [address] 03/30/2024 13:29:57 03/30/2024 15:45:29 Perennial allergic rhinitis 125508239 J30.89 2261 [facility], RMA Allergy 100 [facility],[address] [place] [address] 04/08/2024 12:39:27 04/08/2024 15:21:01 Perennial allergic rhinitis 490652783 J30.89 3805 LESA BRINK, [facility] Allergy 100 [facility],[address] [place] [address] 04/20/2024 13:25:00 04/20/2024 15:25:45 Perennial allergic rhinitis 441301955 J30.89 4947 [facility], RMA Allergy 100 [facility],[address] [place] [address] 04/28/2024 14:04:28 04/28/2024 15:40:21 Perennial allergic rhinitis 349645857 J30.89 5878 [facility], A Allergy 100 [facility],[address] [place] [address] 05/05/2024 12:11:55 05/05/2024 13:31:24 Perennial allergic rhinitis 916655282 J30.89 80841 [facility], A Allergy 100 [facility],[address] [place] [address] 06/15/2024 13:51:37 06/15/2024 15:10:46 Perennial allergic rhinitis 904857695 J30.89 12447 [facility], A Allergy 100 [facility],[address] [place] [address] 06/23/2024 13:05:12 06/23/2024 15:14:31 Perennial allergic rhinitis 579475989 J30.89 76894 IMAN SANTOS, gang supervisor pipe lines 100 [facility],[address] [place] [address] 07/06/2024 13:08:13 07/06/2024 14:15:45 Perennial allergic rhinitis 314530045 J30.89 41538 [facility], RMA Allergy 100 [facility],[address] [place] [address] 07/21/2024 10:07:04 07/21/2024 11:35:26 Perennial allergic rhinitis 143693792 J30.89 35654 LESA BRINK, A Allergy 100 [facility],[address] [place] [address] 07/29/2024 13:19:08 07/29/2024 13:36:43 Perennial allergic rhinitis 304735206 J30.89 46606 IMAN SANTOS RN Allergy 100 [facility],[address] 100 [place] [address] 09/07/2024 12:39:33 09/07/2024 15:27:20 Perennial allergic rhinitis 559543825 J30.89 [id number] MECHE FERRIS, [facility] Allergy 100 [facility],[address] [place] 100 [place] [address] 09/21/2024 10:30:22 09/21/2024 10:55:14 Perennial allergic rhinitis 415678236 J30.89 Health Concerns Section Related Observation LastModified by Organization Detai ls LastModified Time None Recorded Concern Status LastModified by Organization Details LastModified Time None Recorded Advance Directives Directive None Recorded Payers Insurance Date Sequence Insurance Name Policy Number Policy Franks Covered Member ID Franks Member ID Guarantor Name 02/15/2025 1 [place] [employer] Naa Pedersen [id number] Naa Pedersen 02/15/2025 2 [place] [facility] Naa Pedersen [id number] Naa Pedersen OBGyn Episode No OBEpisode recorded.
--- OUTSIDE RECORDS SUMMARY | 2025-10-23 19:20 | XMS_ITS | Encounter Summary ---
Author Organization [facility] Address [address] [facility] 7t [place] [address] Care Team Providers Care Rn Hedis Name Role Phone Renan Lawson MD Primary Care Provide r Edilberto Barahona PharmD Unavailable [phone] Richelle Albarado PharmD Unavailable [phone] Reason for Referral * Imaging (Routine) - Closed Specialty Diagnoses / Procedures Referred By Tiffany milian Referred To Contact Radiology Diagnoses Right lower quadrant abdominal pain Procedures US Pelvis Transvaginal Moira Edouard FNP [address] [place] [address] Phone: tel: fax: [facility] [address] [place] [address] Phone: tel: fax: Referral ID Status Reason Start Date Expiration Date Visits Re quested Visits Authorized [id number] Closed 08/07/2023 08/06/2024 1 1 Encounter Details Date Type Department Care Team (Late st Contact Info) Description 08/07/2023 Orders Only [facility] [address] [place] [address] Moira Edouard FNP [address] [place] [address] Right lower quadrant abdominal pain (Primary Dx) [...] 1:00 PM EST Medication Management [facility] [address] [place], [place] [phone] Richelle Albarado PharmD [address] [place] [address] documented as of this encounter Goals Goal [...] AM EST Narrative 10/08/2023 5:03 PM EST [address] [address] Ultrasound Report Signed Patient: Naa Pedersen MR#: [id number] : 1955 Acct:[id number] Age/Sex: 67 / F ADM Date: 10/07/23 Loc: HO.US Attending Dr: Moira Edouard NP Ordering Physician: Moira Edouard NP Date of Service: 10/07/23 Procedure(s): US pelvic and transvaginal Accession Number(s): [id number] cc: Moira Edouard NP; Renan Cabral MD [...] in OV> 10/08/23 1659 DD/ 1146 TD/TT: Multi Care Technician: Procedure Note Donotuseinterpreter, Image - 10/08/[address] [address] Ultrasound Report Signed Patient: Naa Pedersen EMR#: [id number] : 6Acct:[id number] Age/Sex: 67 / FADM Date: 10/07/23 Loc: HO.US Attending Dr: Moira Edouard NP Ordering Physician: Moira Edouard NP Date of Service: 10/07/23 Procedure(s): US pelvic and transvaginal Accession Number(s): [id number] cc: Moira Edouard LICENSED RETAIL SUPERVISOR; Renan Cabral MD EXAMINATION: US PELVIS [...] in OV> 10/08/23 1659 DD/ 1146 TD/TT: Multi Care Technician: us Moira Edouard FREQUENCY CHECKER IMG US PROCEDURES Final Result documented in this encounter Visit Diagnoses Diagnosis Right lower quadrant abdominal pain- Primary documented in this encounter Additional Health Concerns Assessment Noted Time PHQ-9 Depression Total Score: 0 12/02/19 10:15 AM EST documented as of this encounter Care Teams Rn Hedis Relationship Specialty Start Date End Date Renan Lawson MD [address] [place] [address] PCP - General Internal Medicine 12/10/21 Edilberto Barahona, KyD [address] [place] [address] Pharmacist Internal Medicine 07/14/23 10/24/24 Richelle Albarado PharmD [address] [place] [address] Pharmacist Internal Medicine 10/25/24 documented as of this encounter
--- OUTSIDE RECORDS SUMMARY | 2025-10-23 19:20 | XMS_ITS | Encounter Summary ---
Author Organization [employer] Address [address] [facility] [address] 7[address] [place] [address] Care Team Providers Care Turret Punch Operator Name Role Phone Renan Lawson MD Primary Care Provide r Edilberto Barahona PharmD Unavailable [phone] Richelle Albarado PharmD Unavailable [phone] Reason for Visit * Reason Comments Med Refill Encounter Details Date Type Department Care Team ([facility] st Contact Info) Description 08/26/[address] [facility] [address] [place], [place] [phone] Renan Lawson MD [address] [place], [place] [phone] Social History Tobacco Use Types Packs/Day Years [...] 11/13/2025 1:00 PM EST Medication Management [facility] [address] [place] [address] Richelle Albarado PharmD [address] [place] [address] documented as of this encounter Goals Goal [...] documented as of this encounter Care Teams Turret Punch Operator Relationship Specialty Start Date End Date Renan Lawson MD [address] [place] [address] PCP - General Internal Medicine 12/10/21 Edilberto Barahona, PharmD [address] [place] [address] Pharmacist Internal Medicine 07/14/23 10/24/24 Richelle Albarado, KyD [address] [place] [address] Pharmacist Internal Medicine 10/25/24 documented as of this encounter
--- OUTSIDE RECORDS SUMMARY | 2025-10-23 19:20 | XMS_ITS | Encounter Summary ---
Author Organization [employer] Address [address] [facility] [address] 7t [place] [address] Care Team Providers Care Sap Basis Architect Name Role Phone Renan Lawson MD Primary Care Provide r Edilberto Barahona PharmD Unavailable [phone] Richelle Albarado PharmD Unavailable [phone] Reason for Visit * Reason Comments Med Refill Encounter Details Date Type Department Care Team ([facility] st Contact Info) Description 01/15/2024 Refill [facility] [address] [place], [place] [phone] Shantell Will MD [address] [place], [place] [phone] Fibromyalgia Social History Tobacco Use Types Packs/Day [...] Description 11/13/2025 1:00 PM EST Medication Management [facility] [address] [place] [address] Richelle Albarado PharmD [address] [place] [address] documented as of this encounter Goals Goal [...] documented as of this encounter Care Teams Sap Basis Architect Relationship Specialty Start Date End Date Renan Lawson MD [address] [place] [address] PCP - General Internal Medicine 12/10/21 Edilberto Barahona PharmD [address] [place] [address] Pharmacist Internal Medicine 07/14/23 10/24/24 Richelle Albarado PharmD [address] [place] [address] Pharmacist Internal Medicine 10/25/24 documented as of this encounter
--- OUTSIDE RECORDS SUMMARY | 2025-10-23 19:20 | XMS_ITS | Encounter Summary ---
Author Organization [employer] Address [address] [facility] [address] 7t [place] [address] Care Team Providers Care Commercial Installer Name Role Phone Renan Lawson MD Primary Care Provide r Edilberto Barahona PharmD Unavailable [phone] Richelle Albarado PharmD Unavailable [phone] Reason for Visit * Reason Onset Date Comments Reschedule 05/20/2023 Encounter Details Date Type Department Care Team ([facility] Contact Info) Description 05/20/2023 Telephone [facility]INE [address] [place], [place] [phone] Renan Lawson MD [address] [place], [place] [phone] Reschedule Social History Tobacco Use Types Packs/Day [...] knee injection appointment. Please contact pt at [phone] (Azeri speaker) documented in this encounter Plan of Treatment Upcoming Encounters Date Type Department Care Team (Late st Contact Info) Description 11/13/2025 1:00 PM EST Medication Management [facility]INE [address] [place], [place] [phone] Richelle Albarado PharmD [address] [place], [place] documented as of this encounter Goals [...] documented as of this encounter Care Teams Commercial Installer Relationship Specialty Start Date End Date Renan Lawson MD [address] [place] [address] PCP - General Internal Medicine 12/10/21 Edilberto Barahona PharmD [address] [place] [phone] Pharmacist Internal Medicine 07/14/23 10/24/24 Richelle Albarado PharmD [address] [place] [phone] Pharmacist Internal Medicine 10/25/24 documented as of this encounter
== END 2025-10-23 14:18 | disposition home or self-care (01) ==
LOC: HO.HOS 13:22
PROVIDERS: Visit Provider Physician Assistant
DX: M17.12 Unilateral primary osteoarthritis, left knee (principal)
CPT/HCPCS: 20610

== ENCOUNTER → 2025-10-23 13:22 | Outpatient (BNVA) | payer MEDICARE, MEDICAID, SELFPAY | PROVIDERS: Visit Provider Physician Assistant | DX: M17.12 Unilateral primary osteoarthritis, left knee (principal) | CPT/HCPCS: 20610; J7318 ==